=== PATIENT | female | born 1935 | race Caucasian/White ===

== ENCOUNTER 2019-11-09 18:03 | Emergency (ER) | payer MEDICARE, SELFPAY ==
[2019-11-09 18:04] VITALS: BP 122/73; PULSE 90; RESP 18; TEMP 36.7; O2SAT 98; BMI 19.6
--- NOTE | 2019-11-09 18:35 | EKG12_ITS ---
Test Reason : DIZZY Blood Pressure : / mmHG Vent. Rate : 071 BPM Atrial Rate : 071 BPM P-R Int : 158 ms QRS Dur : 068 ms QT Int : 396 ms P-R-T Axes : 072 074 073 degrees QTc Int : 430 ms Sinus rhythm with Premature atrial complexes Otherwise normal ECG Confirmed by RAMÓN WILKS, BELA ([id number]), editor greeting card COREY WILLIAM ([id number]) on 11/17/2019 11:18:35 A M Referred By: ALBERTO Confirmed By:SLY MELGAR MD
--- NOTE | 2019-11-09 18:40 | ED.RN ---
no old ekgs in [facility]
--- NOTE | 2019-11-09 18:45 | RAD_ITS ---
STUDY: X-RAY CHEST REASON FOR EXAM: Female, 84 years old. fall last night, confused and dizzy today TECHNIQUE: Frontal and lateral views of the chest. COMPARISON: None. FINDINGS: Pulmonary hyperinflation without acute alveolar disease. There is no demonstrated pleural abnormality. Normal size heart. Normal mediastinum and hao. Normal visualized pulmonary arteries. Normal visualized aortic arch and descending thoracic aorta. There is a dextroscoliosis of the thoracic spine. Remote right rib trauma. There is no demonstrated abnormality of the visualized soft tissue structures of the upper abdomen. RAD/Chest PA and Lateral IMPRESSION: Pulmonary hyperinflation without acute alveolar disease. Electronically Signed: Gary Luis MD at 19:01 EDT Tel , Service support ,
[2019-11-09 19:24] LABS: Absolute Lymphocyte Count 2.58 X10^3/uL (0.83-4.51); Absolute Neutrophil Count 8.9 X10^3/uL (2.0-7.7); Basophil# 0.05 X10^3/uL; Basophil% 0.4 % (0-1); Eosinophil# 0.12 X10^3/uL; Hematocrit 46.4 % (37-47); Hemoglobin 14.5 g/dL (12.0-15.0); Lymphocyte # 2.58 X10^3/ul (4.0); Lymphocyte % 20.7 % (19-41); Mean Corp Hgb Conc 31.3 g/dL (32-36); Mean Corpuscular Hgb 28.4 pg (27.0-32.0); Mean Corpuscular Volume 90.8 fL (81-99); Mean Platelet Vol. 10.8 fl (6.2-12.0); Monocyte# 0.81 X10^3/uL; Monocyte% 6.5 % (0-10); NRBC Flagged by Analyzer 0 % (0-5); Neutrophil # 8.88 X10^3/uL (2.7-7.7); Platelet Count 230 K/mm3 (150-450); RBC Distribution Width CV 13.5 % (11.6-14.6); RBC Distribution Width SD 45.1 fl (35.1-43.9); Red Blood Count 5.11 M/mm3 (4.2-5.4); White Blood Count 12.5 K/mm3 (4.4-11.0)
[2019-11-09 19:26] VITALS: BP 134/67; PULSE 72; RESP 16; O2SAT 99
[2019-11-09] MEDS: 0.9% Normal Saline 1,000 ML 50 ML IV (19:28)
[2019-11-09 19:29] LABS: International Normalized Ratio 1.1
[2019-11-09 19:30] LABS: Partial Thromboplast Time 26.7 Seconds (24.1-36.2)
[2019-11-09 19:37] VITALS: O2SAT 99
[2019-11-09 19:38] LABS: Anion Gap 5 (5-15); BUN 27 mg/dL (7-18); BUN/Creat Ratio 18.8 RATIO (10-20); Calcium,Total 9.3 mg/dL (8.5-10.1); Chloride 109 mmol/L (98-107); Creatinine, Serum 1.44 mg/dL (0.55-1.02); EST Glomerular Filtration Rate 37 mL/min (>60); Est Glom Filt Rate - Afr Amer 45 mL/min (>60); Estimated Creatinine Clearance 25.01 ml/min; Glucose 95 mg/dL (74-106); Potassium 5.4 mmol/L (3.5-5.1); Sodium Level 137 mmol/L (136-145)
--- NOTE | 2019-11-09 19:51 | ED.DCSUM_ITS ---
History of Present Illness Chief Complaint: Dizziness Detail of Chief Complaint: Fall with head injury Informant: Patient Onset: Today Current Severity: Mild Maximum Severity: Mild Narrative: Patient presents after falling and striking her head. She states she got up in the middle the night early this morning and fell in the bathroom. She states she was wearing socks and when she stepped onto the linoleum floor her foot slid out from underneath her causing her to fall. She did strike the back of her head against the corner of the dryer. She did not lose consciousness. She was able to get up and get herself cleaned up before going back to bed. Patient reports some intermittent mild dizziness today and some intermittent confusion. She states she is had some intermittent confusion for quite some time. Her children wanted her to be checked to ensure she was okay. Patient denies headache or vision change. She had no nausea or vomiting. - Past Medical History (1) Hypothyroid Status: Chronic (2) Hypertension Status: Chronic (3) Depression Status: Chronic Past Medical History - Allergies and Home Meds Allergies/Adverse Reactions: Allergies ciprofloxacin [From Cipro] Allergy (Verified 11/09/19 18:07) Hives ciprofloxacin HCl [From Cipro] Allergy (Verified 11/09/19 18:07) Hives amoxicillin trihydrate [From Augmentin] Adverse Reaction (Verified 11/09/19 18:07) Abd cramps/diarrhea potassium clavulanate [From Augmentin] Adverse Reaction (Verified 11/09/19 18:07) Abd cramps/diarrhea Primary Care Physician: Francisco Javier Elizabeth III, MD [Primary Care Provider] - Prior records reviewed: Yes Surgical History: noncontributory Smoking Status: Never smoker Review of Systems General: Denies: Chills, Fever Eyes: Denies: Visual changes - bilaterally ENT: Denies: Bilateral ear pain Cardiovascular: Denies: Chest pain Respiratory: Denies: Dyspnea, Cough Gastrointestinal: Denies: Abdominal pain, Nausea, Vomiting Genitourinary: Denies: Dysuria, Frequency Musculoskeletal: Denies: Extremity Pain Skin: Denies: Rash Neurological: Denies: Headache Hematologic: Denies: Easy bruising, Easy bleeding Allergy: Denies: Uticaria Physical Exam Vital Signs/Narrative: Vital Signs Temp Pulse Resp BP Pulse Ox 11/09/19 19:37 99 11/09/19 19:26 72 16 134/67 H 99 11/09/19 18:04 98.1 F 90 18 122/73 H 98 Inital Vital Signs reviewed: Yes General: Well nourished, Well developed Head: Normocephalic, - - Scabbed linear laceration to the posterior right parietal scalp. No underlying hematoma. Laceration is approximate 1.5 cm in length. Eyes: EOMI ENT: Moist mucous membranes Neck: Supple Cardiovascular: Regular rate, Regular rhythm Respiratory: No distress, CTA bilaterally Abdomen: Soft, Nontender Extremities: Nontender Skin: - - Scalp laceration as above Neurological: Alert, Oriented x3, Normal Strength, Normal Sensation Psychological: Normal affect Diagnostic/Tx/Re-eval Impressions Chest X-Ray 11/09/19 18:45 IMPRESSION: Pulmonary hyperinflation without acute alveolar disease. Electronically Signed: Gary Luis MD at 19:01 EDT Tel , Service support , Brain CT 11/09/19 20:12 IMPRESSION: No fracture or intracranial hemorrhage. Electronically Signed: Gary Luis MD at 20:42 EDT Tel , Service support , 11/09/19 18:45 Chest PA and Lateral [RAD] Stat 11/09/19 20:12 CT Head [Brain/Head without Contrast] [CT] Stat Laboratory Results 11/09/19 11/09/19 11/09/19 19:13 19:13 19:13 WBC 12.5 H RBC 5.11 Hgb 14.5 Hct 46.4 MCV 90.8 MCH 28.4 MCHC 31.3 L RDW Std Deviation 45.1 H RDW Coeff of Sol 13.5 Plt Count 230 MPV 10.8 Immature Gran % (Auto) 0.400 Neut % (Auto) 71.0 H Lymph % (Auto) 20.7 [place] % (Auto) 6.5 Eos % (Auto) 1.0 Baso % (Auto) 0.4 Absolute Neuts (auto) 8.9 H Absolute Lymphs (auto) 2.58 Nucleated RBC % 0 PT 14.0 INR 1.1 APTT 26.7 Sodium 137 Potassium 5.4 H Chloride 109 H Carbon Dioxide 23.0 Anion Gap 5 BUN 27 H Creatinine 1.44 H Estim Creat Clear Calc 25.01 Est GFR (MDRD) Af Amer 45 L Est GFR (MDRD) Non-Af 37 L BUN/Creatinine Ratio 18.8 Glucose 95 Calcium 9.3 - EKG Initial EKG Interpretation: Sinus Rhythm - Sinus at 71 with occasional PACs. - Medical Decision Making On repeat evaluation patient is resting comfortably. She was given IV fluids while in the emergency room. ED Disposition - Plan for ED Patient: Disposition: Home or Assisted Living Diagnosis: Fall, Scalp laceration Instructions: ED Head Injury Adult, ED Laceration Old Not Sutr Referrals: Francisco Javier Elizabeth III, MD [Primary Care Provider] - 1 Week if not improving
--- NOTE | 2019-11-09 20:12 | CT_ITS ---
STUDY: CT BRAIN WITHOUT CONTRAST REASON FOR EXAM: Female, 84 years old. FALL. CONFUSION WITH DIZZINESS.HTN RADIATION DOSAGE (If Supplied By Facility): CTDIvol = ( 60.81 ) mGy, DLP = ( 1021.47 ) mGycm TECHNIQUE: Transaxial CT imaging of the brain was performed without administration of intravenous contrast material. Individualized dose optimization techniques were used for this CT. COMPARISON: No relevant priors. FINDINGS: Normal soft tissue structures. Normal calvarium. Bilateral lens replacements. Normal size ventricles and extra-axial spaces for the patient''s age. There are areas of decreased attenuation within the white matter tracts of the supratentorial brain, consistent with microvascular disease changes. Age-related changes of the basal ganglia. Normal brainstem. Normal cerebellum. There is no intracranial hemorrhage. There are no findings of an acute ischemic infarction. Normal visualized paranasal sinuses. CT/Brain/Head without Contrast IMPRESSION: No fracture or intracranial hemorrhage. Electronically Signed: Gary Luis MD at 20:42 EDT Tel , Service support ,
[2019-11-09 20:21] VITALS: BP 137/71
[2019-11-09 21:08] VITALS: BP 142/55; PULSE 65; RESP 16; O2SAT 100
[2019-11-09 22:05] VITALS: BP 135/67; PULSE 68; RESP 16; O2SAT 98
== END 2019-11-09 22:09 | disposition home or self-care (01) ==
PROVIDERS: Emergency Provider Emergency Medicine; PCP Family Medicine
DX: S01.01XA Laceration without foreign body of scalp, initial encounter (principal); I10 Essential (primary) hypertension; W18.30XA Fall on same level, unspecified, initial encounter; Y93.01 Activity, walking, marching and hiking; Y92.002 Bathroom of unspecified non-institutional (private) residence as the place of occurrence of the external cause; Y99.8 Other external cause status
CPT/HCPCS: 70450; 71046; 80048; 85025; 85610; 85730; 93005; 99283; J7030; A4216

== ENCOUNTER 2019-12-08 13:36 | Inpatient (IN) | payer MEDICARE, OTHER, SELFPAY ==
[2019-12-08] VITALS (8 sets, daily range): BP systolic 101–142; BP diastolic 45–62; PULSE 60–81; RESP 16–18; TEMP 36.1–36.6; O2SAT 94–100; BMI 17.1; BMI 19.0
--- NOTE | 2019-12-08 14:00 | CT_ITS ---
STUDY: CT ABDOMEN AND PELVIS WITH CONTRAST REASON FOR EXAM: Female, 84 years old. AB PAIN AND DIARRHEA X 6 MONTHS RADIATION DOSAGE (If Supplied By Facility): CTDIvol = ( 11.20 ) mGy, DLP = ( 265.26 ) mGycm TECHNIQUE: Transaxial images were obtained from the dome of the diaphragm to the symphysis pubis without oral contrast. Oral and amp; IV Gastrografin and amp; 100mL Isovue-300 was administered. Sagittal and coronal images were reconstructed. Individualized dose optimization techniques were used for this CT. COMPARISON: 2010 FINDINGS: The lungs are hyperexpanded with chronic interstitial changes. The visualized portions of the heart are within normal limits. No discrete focal lesion noted within the liver. There is extensive intrahepatic biliary dilatation despite the presence of the gallbladder. Multiple gallstones are noted no wall thickening or pericholecystic fluid. There is no significant extrahepatic biliary dilatation. Common bile duct and head of the pancreas measures 6 mm on coronal recon image 44 and is within normal range. Findings could be due to nonradiopaque stone, stricture, ampulla of VATER mass or simply a product of aging. Normal spleen. Normal pancreas specifically, no mass lesion is identified within the head of the pancreas.. Normal bilateral adrenal glands. Normal right kidney. Normal left kidney. Normal visualized stomach. Normal small intestine. The ascending and transverse colon are fluid distended suggesting enteritis. There is retained stool and sigmoid diverticulosis without CT evidence of acute diverticulitis. The appendix is visualized and appears normal. Appendix best seen on coronal recon images 32 through 35. 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 There is no suspicious periaortic fluid. Normal inferior vena cava. Normal retroperitoneum. Normal urinary bladder. There is been a previous hysterectomy, there is a pessary below the bladder. There is a fluid-filled periumbilical hernia.. There are diffuse degenerative changes of the visualized lumbar spine, and pelvis. CT/Abdomen/Pelvis WITH Contrast IMPRESSION: Significant intrahepatic biliary dilatation of uncertain etiology. No discrete lesion noted within the liver. Multiple gallstones are noted within the gallbladder there is no wall thickening or pericholecystic fluid and no extrahepatic biliary dilatation is noted. Findings could be due to a stricture, or nonradiopaque stone. 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
--- NOTE | 2019-12-08 14:09 | ED.DCSUM_ITS ---
- ER Visit Summary Date of Service: 12/08/19 Chief Complaint: Diarrhea History of Present Illness: The patient is a 84 F presenting with diarrhea. This started 6 months ago. She has had diarrhea daily over that time period. She states she is having 2 bowel movements per day. She states it is watery stool. She has had stool samples checked by her primary care physician. She has had her well water checked. She denies abdominal pain, nausea, vomiting. Denies fever. Denies chest pain or shortness of breath. She states she has felt lightheaded but has not passed out. Family is concerned about possible dehydration. She denies other complaints. Physical Examination: Vitals are stable. Patient is afebrile. Alert no acute distress. HEENT exam is unremarkable. Neck is supple. Lungs are clear and equal bilaterally. Heart is regular rate and rhythm. Abdomen is soft nontender nondistended. No rebound or guarding Extremities are unremarkable. Skin is warm and dry. No focal neurologic deficit. Remainder of exam is unremarkable. Emergency Department Course and Treatment: CBC is normal except white count of 11.9. Chemistries normal except for potassium 3.4, creatinine 1.11. Urinalysis shows over 100 white blood cells, 10-[address] abdomen pelvis shows significant intrahepatic biliary dilatation of uncertain etiology. No discrete lesion noted within the liver. Multiple gallstones are noted within the gallbladder there is no wall thickening or pericholecystic fluid and no extrahepatic biliary dilatation is noted. Findings could be due to a stricture, or nonradiopaque stone. There is no demonstrated stone in the extrahepatic common bile duct Fluid distended ascending and transverse colon suggest enteritis. Sigmoid diverticulosis. 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 Degenerative bony changes. Pessary supports the bladder. Degenerative bony changes. Urine culture was sent. She was given Rocephin IV. Discussed with Dr. Nicholas who recommends MRCP. Discussed with the hospitalist for observation. Disposition: Observation Impression: Diarrhea, intrahepatic duct dilatation, UTI This note was generated with incredib[employer]ue dictation software. It may contain incorrect words, spelling, and punctuation that were not noted in review of the chart prior to signing ED Disposition - Plan for ED Patient: Referrals: Francisco Javier Elizabeth III, MD [Primary Care Provider] -
[2019-12-08 14:38] LABS: Mucous, Urine 0 SEEN /hpf (<or=2+)
[2019-12-08] MEDS: 0.9% Normal Saline 1,000 ML 1000 ML IV (14:38)
[2019-12-08 14:45] LABS: Absolute Lymphocyte Count 2.16 X10^3/uL (0.83-4.51); Absolute Neutrophil Count 8.8 X10^3/uL (2.0-7.7); Basophil# 0.04 X10^3/uL; Basophil% 0.3 % (0-1); Eosinophil# 0.11 X10^3/uL; Eosinophils% 0.9 % (0-5); Hematocrit 40.8 % (37-47); Hemoglobin 12.8 g/dL (12.0-15.0); Lymphocyte # 2.16 X10^3/ul (4.0); Lymphocyte % 18.1 % (19-41); Mean Corp Hgb Conc 31.4 g/dL (32-36); Mean Corpuscular Hgb 27.8 pg (27.0-32.0); Mean Corpuscular Volume 88.5 fL (81-99); Mean Platelet Vol. 10.2 fl (6.2-12.0); Monocyte# 0.77 X10^3/uL; Monocyte% 6.5 % (0-10); NRBC Flagged by Analyzer 0 % (0-5); Neutrophil # 8.82 X10^3/uL (2.7-7.7); Neutrophil % 73.9 % (47-70); Platelet Count 206 K/mm3 (150-450); RBC Distribution Width CV 14.3 % (11.6-14.6); RBC Distribution Width SD 45.9 fl (35.1-43.9); Red Blood Count 4.61 M/mm3 (4.2-5.4); White Blood Count 11.9 K/mm3 (4.4-11.0)
[2019-12-08 14:45] LABS: Color, Urine Yellow (Yellow); Glucose, Dipstick Normal (Normal); Ketone-Dipstick 5 mg/dl (Negative); Leukocyte Esterase-Dipstick 500 /ul (Negative); Nitrite-Dipstick Negative (Negative); Occult Blood-Urine 25 /ul (Negative); Protein-Dipstick 30 mg/dl (Negative); Specific Gravity, Urine 1.015 (1.002-1.030); Urine Bilirubin Dipstick Negative (Negative); Urine Clarity Cloudy (Clear); Urine Urobilinogen Normal (Normal)
[2019-12-08 15:03] LABS: ALB/GLOB Ratio 0.9 RATIO (0.9-2.4); AST(SGOT) 28 U/L (15-37); Alanine Aminotransfer ALT/SGPT 20 U/L (13-56); Albumin, Serum 3.3 g/dL (3.2-5.0); Alkaline Phosphatase 74 U/L (45-117); Anion Gap 7 (5-15); BUN 17 mg/dL (7-18); BUN/Creat Ratio 15.3 RATIO (10-20); Calcium,Total 8.5 mg/dL (8.5-10.1); Chloride 111 mmol/L (98-107); Creatinine, Serum 1.11 mg/dL (0.55-1.02); EST Glomerular Filtration Rate 50 mL/min (>60); Est Glom Filt Rate - Afr Amer 60 mL/min (>60); Estimated Creatinine Clearance 29.15 ml/min; Globulin 3.8 g/dL (2.2-4.2); Glucose 108 mg/dL (74-106); Potassium 3.4 mmol/L (3.5-5.1); Protein, Total 7.1 g/dL (6.4-8.2); Sodium Level 144 mmol/L (136-145)
[2019-12-08 15:10] LABS: Amorphous Sediment 1+; Bacteria 1+ /hpf (None Seen); Red Blood Cells-Urine 10-25 SEEN /hpf (0-5); Squamous Epithelial Cells - UA 0-5 SEEN /hpf (5-10); White Blood Cells >100 SEEN /hpf (0-5)
[2019-12-08 17:58] LABS: Lipase 867 U/L (73-393)
--- NOTE | 2019-12-08 18:02 | NURSING ---
321 DONYA DIARRHEA, INTRAHEPATIC BILIARY DILATION OBS
[2019-12-08] MEDS: Ceftriaxone 1 GM/50 ML BAG IV (18:24)
--- NOTE | 2019-12-08 18:38 | HP.PCM_ITS ---
Problem List (1) Diarrhea Status: Acute (2) Enteritis Status: Acute (3) Hypothyroid Status: Chronic (4) Hypertension Status: Chronic (5) Depression Status: Chronic History of Present Illness Date of Admission: 12/08/19 The patient is a 84 year old F with a PMH of hypothyroidism, HTN, and Depression who presented to the ED on 12/08/2019 with diarrhea. This started about 6 mos ago. The pt reports that she has 2 bouts of liquid stool daily during the day. No nocturnal diarrhea noted. She states that there is no formation to her stool and that the color depends on what she eats. She has initiated a workup with Dr. Adia Elizabeth that has consisted of stool samples and had her well water checked. So far they have found nothing. She denies any abdominal pain, blood in her stool or melena. She states that she has not lost much weight but her daughter estimates that she has lost at least 10 lbs per month. Per her daughter he PO intake is poor but yet again the pt denies pain in her abdomen with eating or otherwise. Her VS are stable in the ED. She has a slight leukocytosis at 11.9 her K is low at 3.4 and she appears mildly dehydrated with an elevated Cl and BUN and SG of her urine is 1.015. Her Lipase is 876. Her UA has mild occult blood, leuk esterase + and >100 WBC but the pt has no dysuria or frequency. A urine cx was sent in the ED and she was given 1 dose of CTX for this. A CT of the abdomen was done at the request of the family and showed significant intrahepatic duct dilation with no discrete liver lesion and multiple gallstones but a normal GB otherwise. SHe has fluid distention of her ascending and transverse colon suggestive of enteritis and sigmoid diverticulitis. She was also found to have a calcified AA with aneurysmal dilation of the thoraco abdominal junction with a maximal dimension of 5x4.6 cm. The ED discussed the case with Dr. Nicholas and he recommended an MRCP be done in the am. Past Medical History Past Medical History (Chronic Problems): Chronic Problems Hypothyroid (Chronic) Hypertension (Chronic) Depression (Chronic) Allergies ciprofloxacin [From Cipro] Allergy (Verified 12/08/19 13:39) Hives ciprofloxacin HCl [From Cipro] Allergy (Verified 12/08/19 13:39) Hives amoxicillin trihydrate [From Augmentin] Adverse Reaction (Verified 12/08/19 13:39) Abd cramps/diarrhea potassium clavulanate [From Augmentin] Adverse Reaction (Verified 12/08/19 13:39) Abd cramps/diarrhea Home Medications: Ambulatory Orders Medication Instructions Recorded Lisinopril [Zestril] 10 mg PO DAILY 01/08/13 Levothyroxine [Synthroid] 75 mcg PO DAILY 12/08/19 Sertraline HCl [Zoloft] 50 mg PO DAILY 12/08/19 Surgical History: noncontributory Psychiatric History: No pertinent psych hx 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 Denies: Anorexia, Chills, Fever, Night Sweats, Malaise, Weakness, Fatigue Eyes: Denies: Blurred vision, Cataracts, Conjunctivae Inflammation, Double vision, Drainage, Eyelid Inflammation, Pain, Vision Change HEENT: Denies: Difficulty Hearing, Difficulty Swallowing, Ear Pain, Eye Pain, Head Aches, Nasal bleeding, Nasal Congestion, Post Nasal Drip, Sinus Congestion, Sinus Drainage, Sore Throat, Visual Changes Cardiovascular: Denies: Chest Pain, Claudication, Chest Pressure, Chest Tightness, Edema, Heaviness, Light Headedness, Orthopnea, Palpitations, Paroxysmal Noc. Dyspnea, Syncope Respiratory: Denies: Cough, Hemoptysis, Pleuritic Pain, Shortness of Breath, Shortness of breath at rest, Shortness of breath upon exertion, Sputum product ion, Wheezing Gastrointestinal: Reports: Diarrhea. Denies: Abdominal Pain, Constipation, Dyspepsia, Hematemesis, Hematochezia, Nausea, Melena, Vomiting Genitourinary: Reports: Incontinence. Denies: Dysuria, Frequency, Hematuria, Hesitancy, Nocturia, Retention, Urgency Musculoskeletal: Denies: Back Pain, Joint Pain, Joint stiffness, Joint swelling, Joint Tenderness, Neck Pain Skin: Denies: Dryness, Jaundice Neurological: Denies: Balance problems, Blurred vision, Double vision, Change in Speech, Slurred speech, Confusion, Difficulty swallowing, Focal weakness, Headaches, Incoordination, Numbness, Tingling, Tremor, Seizures Psychiatric: Reports: Anxiety. Denies: Depression Endocrine: Denies: Change in Body Habitus, Heat/ Cold Intolerance, Polydipsia, Polyuria Hematologic/ Lymphatic: Denies: Adenopathy, Anemia, Petechiae, Purpura VTE Information - Inpt Only VTE Present on Admission: No VTE Mechan Device Prophylaxis: None VTE Pharm Prophylaxis ordered?: Yes Patient Problems: Active and Suspected Problems Diarrhea (Acute) Enteritis (Acute) - Physical Exam Vitals/I&O's: Vital Signs Temp Pulse Resp BP Pulse Ox 97 F L 61 18 127/45 H 99 12/08/19 18:19 12/08/19 18:19 12/08/19 18:19 12/08/19 18:19 12/08/19 18:19 Oxygen Delivery Method Room Air Weight: 48.081 kg Body Mass Index (BMI) 17.1 Intake and Output for Last 24 Hours 12/06/19 12/07/19 12/08/19 23:59 23:59 23:59 Intake Total 1000 / 1000 Balance 1000 / 1000 General: Alert, Oriented x3, Cooperative, No apparent distress, Well developed, Well nourished, - - Frail WF lying in bed, appears a bit anxious, daughter at bedside HEENT: Atraumatic, PERRLA, EOMI, Normocephalic, EAC Clear Oral: Moist Mucosa, No Gingival or Mucosal Lesions/ Ulcerations, - - upper dentures in place Neck: Supple, No JVD, Negative Carotid Bruits, Negative Hepatojugular Reflux, No Nodes, Trachea Midline, Thyroid Normal Size and Texture Lungs: Clear to auscultation, Normal air movement, No rhonchi, No wheeze, No rales Cardiovascular: Regular rate, Regular Rhythm, Normal S1, Normal S2, No murmurs, No Ectopic Activity, No rub noted, No Gallop Abdomen: Bowel Sounds Present, Soft, Non Tender, Non-Distended, No Hepato- splenomegaly, No hernias noted Extremities: No clubbing, No cyanosis, No edema, Capillary Refill Less than 3 Seconds, No Calf Tenderness, Peripheral Pulses Normal Skin: No rashes, No breakdown Musculoskeletal: No Tenderness to Palpation of Joints or Extremities, Arthritic Changes, Cachexia, Muscle Wasting Lymphatic: No Cervical, Supraclavicular, or Inguinal Adenopathy Neurological: Cranial nerves II-XII grossly intact, Deep Tendon Reflexes 2+/4 and Symmetrical, Neuro grossly intact, Muscle tone normal, Sensory exam intact to light touch and pain, Coordination normal, - - generalized weakness proximal >>distal Psych/Mental Status: Normal Affect, Anxious, Alert and oriented to time, place, person, mood and affect Laboratory Results 12/08/19 14:20: WBC 11.9 H, RBC 4.61, Hgb 12.8, Hct 40.8, MCV 88.5, MCH 27.8, MCHC 31.4 L, RDW Std Deviation 45.9 H, RDW Coeff of Sol 14.3, Plt Count 206, MPV 10.2, Immature Gran % (Auto) 0.300, Neut % (Auto) 73.9 H, Lymph % (Auto) 18.1 L , [place] % (Auto) 6.5, Eos % (Auto) 0.9, Baso % (Auto) 0.3, Absolute Neuts (auto) 8.8 H, Absolute Lymphs (auto) 2.16, Nucleated RBC % 0 12/08/19 14:20: Sodium 144, Potassium 3.4 L, Chloride 111 H, Carbon Dioxide 26.0, Anion Gap 7, BUN 17, Creatinine 1.11 H, Estim Creat Clear Calc 29.15, Est GFR (MDRD) Af Amer 60, Est GFR (MDRD) Non-Af 50 L, BUN/Creatinine Ratio 15.3, Glucose 108 H, Calcium 8.5, Total Bilirubin 0.40, AST 28, ALT 20, Alkaline Phosphatase 74, Total Protein 7.1, Albumin 3.3, Globulin 3.8, Albumin/Globulin Ratio 0.9 12/08/19 14:20: Lipase 867 H 12/08/19 14:25: Urine Color Yellow, Urine Clarity Cloudy, Urine pH 6.0, Ur Specific [place] 1.015, Urine Protein 30 H, Urine Glucose (UA) Normal, Urine Ketones 5 H, Urine Occult Blood 25 H, Urine Nitrite Negative, Urine Bilirubin Negative, Urine Urobilinogen Normal, Ur Leukocyte Esterase 500 H, Urine RBC 10- 25 SEEN, Urine WBC >100 SEEN, Ur Squamous Epith Cells 0-5 SEEN, Amorphous Sediment 1+, Urine Bacteria 1+, Urine Mucus 0 SEEN Current Medications Influenza Virus Vaccine Quadrival (Flucelvax /Fluzone ) 0.5 ml IM .ONCE ONE Stop: 12/09/19 10:01 Sodium Chloride () 10 - 40 ml IV UD PRN PRN Reason: SALINE FLUSH Assessment/Plan All Active Problems Diarrhea (Acute) Enteritis (Acute) Dilated Intrahepatic Duct -MRCP in am with ativan x 0.5 mg 30 min prior for anxiety -Consult to Dr. Nicholas -repeat LFT in am Diarrhea -check stool studies -check lactoferrin and calprotectin -enteritis on CT--> will treat with zosyn for now -suspect need c-scope in future -check TSH Bacteruria -pt asymptomatic -cx sent -will be on zosyn for above Severe Malnutrition -dietitian consult -supplements ordered -liberal diet AAA >5.5 cm and appears stable on CT -would recommend BP control -f/u with vascular as an outpt Hypokalemia -40 of po K -recheck with Mag in am CKD stage 3 -sCR appears to be close to baseline -will hydrate some with diarrhea Hypothyroidism -continue Synthroid -TSH in am HTN -continue Lisinopril and trend Depression -continue Zoloft DVT prophylaxis -Lovenox daily Code Status -Full Inpatient E&M: 70126 Init Hosp L3
[2019-12-08] MEDS: 0.9% Normal Saline 1,000 ML 50 ML IV (20:33)
[2019-12-09 03:04] VITALS: BP 127/53; PULSE 67; RESP 18; TEMP 37; O2SAT 97
[2019-12-09 06:33] LABS: Absolute Lymphocyte Count 1.53 X10^3/uL (0.83-4.51); Absolute Neutrophil Count 6.4 X10^3/uL (2.0-7.7); Basophil# 0.02 X10^3/uL; Basophil% 0.2 % (0-1); Eosinophil# 0.14 X10^3/uL; Eosinophils% 1.6 % (0-5); Hematocrit 34.8 % (37-47); Hemoglobin 11.3 g/dL (12.0-15.0); Lymphocyte # 1.53 X10^3/ul (4.0); Lymphocyte % 17.7 % (19-41); Mean Corp Hgb Conc 32.5 g/dL (32-36); Mean Corpuscular Hgb 28.7 pg (27.0-32.0); Mean Corpuscular Volume 88.3 fL (81-99); Mean Platelet Vol. 10.3 fl (6.2-12.0); Monocyte# 0.51 X10^3/uL; Monocyte% 5.9 % (0-10); NRBC Flagged by Analyzer 0 % (0-5); Neutrophil # 6.41 X10^3/uL (2.7-7.7); Neutrophil % 74.3 % (47-70); Platelet Count 153 K/mm3 (150-450); RBC Distribution Width CV 14.2 % (11.6-14.6); RBC Distribution Width SD 45.6 fl (35.1-43.9); Red Blood Count 3.94 M/mm3 (4.2-5.4); White Blood Count 8.6 K/mm3 (4.4-11.0)
[2019-12-09 06:59] LABS: ALB/GLOB Ratio 0.9 RATIO (0.9-2.4); AST(SGOT) 64 U/L (15-37); Alanine Aminotransfer ALT/SGPT 75 U/L (13-56); Albumin, Serum 2.6 g/dL (3.2-5.0); Alkaline Phosphatase 72 U/L (45-117); Anion Gap 8 (5-15); BUN 13 mg/dL (7-18); BUN/Creat Ratio 13.4 RATIO (10-20); Calcium,Total 7.6 mg/dL (8.5-10.1); Chloride 114 mmol/L (98-107); Creatinine, Serum 0.97 mg/dL (0.55-1.02); EST Glomerular Filtration Rate 58 mL/min (>60); Est Glom Filt Rate - Afr Amer 70 mL/min (>60); Estimated Creatinine Clearance 35.31 ml/min; Globulin 2.8 g/dL (2.2-4.2); Glucose 92 mg/dL (74-106); Magnesium 1.8 mg/dL (1.6-2.6); Phosphorus 2.8 mg/dL (2.5-4.9); Potassium 2.8 mmol/L (3.5-5.1); Protein, Total 5.4 g/dL (6.4-8.2); Sodium Level 146 mmol/L (136-145); Thyroid Stim Hormone (TSH) 3.21 uIU/mL (0.358-3.74)
--- NOTE | 2019-12-09 08:11 | CON.PCM_ITS ---
Problem List (1) Intrahepatic bile duct dilation Status: Acute (2) Diarrhea Status: Acute Qualifiers: Diarrhea type: unspecified type Qualified Code(s): R19.7 - Diarrhea, unspecified Reason for Consult Date of Consultation: 12/09/19 History of Present Illness: The patient is a 84 year old F who presents with a month-long history of diarrhea. Patient is not having any abdominal pain. She reports no nausea or vomiting. She says that she is not having any blood in her stool. She said that her doctor has ordered multiple stool studies that have not shown any reason for her diarrhea. Past Medical History Past Medical History (Chronic Problems): Chronic Problems Hypothyroid (Chronic) Hypertension (Chronic) Depression (Chronic) Allergies ciprofloxacin [From Cipro] Allergy (Verified 12/08/19 13:39) Hives ciprofloxacin HCl [From Cipro] Allergy (Verified 12/08/19 13:39) Hives amoxicillin trihydrate [From Augmentin] Adverse Reaction (Verified 12/08/19 13:39) Abd cramps/diarrhea potassium clavulanate [From Augmentin] Adverse Reaction (Verified 12/08/19 13:39) Abd cramps/diarrhea Home Medications: Ambulatory Orders Medication Instructions Recorded Lisinopril [Zestril] 10 mg PO DAILY 01/08/13 Levothyroxine [Synthroid] 75 mcg PO DAILY 12/08/19 Sertraline HCl [Zoloft] 50 mg PO DAILY 12/08/19 Surgical History: noncontributory Psychiatric History: No pertinent psych hx 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 Denies: Abdominal Pain, Constipation, Dyspepsia, Hematemesis, Hematochezia, Nausea, Vomiting Genitourinary: Denies: Dysuria Skin: Denies: Jaundice Neurological: Denies: Balance problems Hematologic/ Lymphatic: Denies: Anemia Patient Problems: Active and Suspected Problems Diarrhea (Acute) Enteritis (Acute) Intrahepatic bile duct dilation (Acute) - Physical Exam Vitals/I&O's: Vital Signs Temp Pulse Resp BP Pulse Ox 98.6 F 67 18 127/53 H 97 12/09/19 03:04 12/09/19 03:04 12/09/19 03:04 12/09/19 03:04 12/09/19 03:04 Oxygen Delivery Method Room Air Weight: 112 lb 3.445 oz Body Mass Index (BMI) 19.0 Intake and Output for Last 24 Hours 12/07/19 12/08/19 12/09/19 23:59 23:59 23:59 Intake Total 1050 / 1320 320 / 320 Balance 1050 / 1320 320 / 320 General: Alert, Oriented x3 Neck: No JVD Lungs: Normal air movement Cardiovascular: Regular rate, Regular Rhythm Abdomen: Soft, Non Tender, Non-Distended Extremities: No clubbing Skin: No rashes Musculoskeletal: No Tenderness to Palpation of Joints or Extremities Neurological: Cranial nerves II-XII grossly intact Psych/Mental Status: Normal Affect Microbiology Past 72 Hours 12/08/19 20:35 Stool Stool Lactoferrin - Final Laboratory Results 12/08/19 14:20: WBC 11.9 H, RBC 4.61, Hgb 12.8, Hct 40.8, MCV 88.5, MCH 27.8, MCHC 31.4 L, RDW Std Deviation 45.9 H, RDW Coeff of Sol 14.3, Plt Count 206, MPV 10.2, Immature Gran % (Auto) 0.300, Neut % (Auto) 73.9 H, Lymph % (Auto) 18.1 L , [place] % (Auto) 6.5, Eos % (Auto) 0.9, Baso % (Auto) 0.3, Absolute Neuts (auto) 8.8 H, Absolute Lymphs (auto) 2.16, Nucleated RBC % 0 12/08/19 14:20: Sodium 144, Potassium 3.4 L, Chloride 111 H, Carbon Dioxide 26.0, Anion Gap 7, BUN 17, Creatinine 1.11 H, Estim Creat Clear Calc 29.15, Est GFR (MDRD) Af Amer 60, Est GFR (MDRD) Non-Af 50 L, BUN/Creatinine Ratio 15.3, Glucose 108 H, Calcium 8.5, Total Bilirubin 0.40, AST 28, ALT 20, Alkaline Phosphatase 74, Total Protein 7.1, Albumin 3.3, Globulin 3.8, Albumin/Globulin Ratio 0.9 12/08/19 14:20: Lipase 867 H 12/08/19 14:25: Urine Color Yellow, Urine Clarity Cloudy, Urine pH 6.0, Ur Specific [place] 1.015, Urine Protein 30 H, Urine Glucose (UA) Normal, Urine Ketones 5 H, Urine Occult Blood 25 H, Urine Nitrite Negative, Urine Bilirubin Negative, Urine Urobilinogen Normal, Ur Leukocyte Esterase 500 H, Urine RBC 10- 25 SEEN, Urine WBC >100 SEEN, Ur Squamous Epith Cells 0-5 SEEN, Amorphous Sediment 1+, Urine Bacteria 1+, Urine Mucus 0 SEEN 12/08/19 20:35: Stool Calprotectin Pending 12/08/19 20:35: Stl Giardia Antigen Pending 12/09/19 06:18: WBC 8.6, RBC 3.94 L, Hgb 11.3 L, Hct 34.8 L, MCV 88.3, MCH 28.7, MCHC 32.5, RDW Std Deviation 45.6 H, RDW Coeff of Sol 14.2, Plt Count 153, MPV 10.3, Immature Gran % (Auto) 0.300, Neut % (Auto) 74.3 H, Lymph % (Auto) 17.7 L, Baxter % (Auto) 5.9, Eos % (Auto) 1.6, Baso % (Auto) 0.2, Absolute Neuts (auto) 6.4, Absolute Lymphs (auto) 1.53, Nucleated RBC % 0 12/09/19 06:18: Sodium 146 H, Potassium 2.8 L, Chloride 114 H, Carbon Dioxide 24.0, Anion Gap 8, BUN 13, Creatinine 0.97, Estim Creat Clear Calc 35.31, Est GFR (MDRD) Af Amer 70, Est GFR (MDRD) Non-Af 58 L, BUN/Creatinine Ratio 13.4, Glucose 92, Calcium 7.6 L, Phosphorus 2.8, Magnesium 1.8, Total Bilirubin 0.30, AST 64 H, ALT 75 H, Alkaline Phosphatase 72, Total Protein 5.4 L, Albumin 2.6 L, Globulin 2.8, Albumin/Globulin Ratio 0.9, TSH 3.21 Clinical Impression(s) from Imaging Studies Abdomen/Pelvis CT 12/08/19 14:00 IMPRESSION: Significant intrahepatic biliary dilatation of uncertain etiology. No discrete lesion noted within the liver. Multiple gallstones are noted within the gallbladder there is no wall thickening or pericholecystic fluid and no extrahepatic biliary dilatation is noted. Findings could be due to a stricture, or nonradiopaque stone. There is no demonstrated stone in the extrahepatic common bile duct Fluid distended ascending and transverse colon suggest enteritis Sigmoid diverticulosis Peripherally calcified abdominal aorta with aneurysmal dilatation at the junction of the thoracic and abdominal aorta with maximum dimensions of 5 x 4.6 cm Degenerative bony changes Pessary supports the bladder Degenerative bony changes Electronically Signed: Kerwin Thakur MD at 16:56 EDT , Service support , Current Medications Acetaminophen (Tylenol) 650 mg PO Q6H PRN PRN PRN Reason: Pain Score 1-10/Temp > 100.7 F Enoxaparin Sodium (Lovenox) 30 mg SC DAILY [facility] Sodium Chloride () 1,000 mls @ 50 mls/hr IV .Q20H [facility] Last Admin: 12/08/19 20:33 Dose: 50 mls/hr Documented by: Piperacillin Sod/Tazobactam (Sod 3.375 gm/ Sodium Chloride) 50 mls @ 12.5 mls/hr IV Q8 [facility] Last Admin: 12/09/19 06:01 Dose: 12.5 mls/hr Documented by: Influenza Virus Vaccine Quadrival (Flucelvax /Fluzone ) 0.5 ml IM .ONCE ONE Stop: 12/09/19 10:01 Melatonin (Melatonin) 3 mg PO QHS PRN PRN PRN Reason: INSOMNIA Nutritional Formula (Lactose Free) (Ensure Enlive) 120 ml PO 4X/DAY [facility] Last Admin: 12/08/19 20:32 Dose: 120 ml Documented by: Ondansetron HCl (Zofran) 4 mg IV Q8H PRN PRN PRN Reason: NAUSEA/VOMITING Sodium Chloride () 10 - 40 ml IV UD PRN PRN Reason: SALINE FLUSH Assessment/Plan All Active Problems Diarrhea (Acute) Enteritis (Acute) Intrahepatic bile duct dilation (Acute) 84-year-old female with diarrhea and dilated intrahepatic biliary ducts 1. The patient is having diarrhea of unknown origin and this is been going on for about 6 months. She had a CT scan which showed fluid distended ascending and transverse colon suggestive of enteritis. The patient is not having any abdominal pain and all stool studies have been negative. Patient also has dilated hepatic and common bile duct. I have recommended an MRCP to evaluate further. Patient does have some small gallstones in the gallbladder. She is not having any elevation of the LFTs or pain in that area. It is possible that she has a decreased amount of bile flowing into the bowel causing malabsorption and diarrhea. She may benefit from ERCP with stent placement and sphincterotomy. Will review MRCP and decide. Jacobo Nicholas MD Pager: [facility] [address] [place] [address] [address] [place] [address] Office:
[2019-12-09] MEDS: Potassium Chloride 10mEq/100mL 10 MEQ/100 ML IV.SOLN. 100 MEQ IV BOLUS ×6 (09:34→23:45)
[2019-12-09] MEDS: Enoxaparin 30 MG/0.3 ML Syringe SC (09:53)
[2019-12-09 09:56] VITALS: BP 121/67; PULSE 65; RESP 18; TEMP 37.1; O2SAT 100
--- NOTE | 2019-12-09 10:00 | MRI_ITS ---
STUDY: MR MRCP WITHOUT CONTRAST REASON FOR EXAM: Female, 84 years old. intrahepatic duct dilation TECHNIQUE: Standard MRCP technique was utilized. COMPARISON: CT 12/08/2019 FINDINGS: Gall Bladder: Normal with no distention or demonstrated fixed intraluminal filling defect. Cystic duct: Normal with no demonstrated fixed filling defect. Intrahepatic ducts: Normal visualized intrahepatic ducts with no demonstrated fixed filling defect, dilation or stricture. Common hepatic duct: Normal with no demonstrated fixed filling defect, dilation or stricture. Common bile duct: Normal with no demonstrated fixed filling defect, dilation or stricture. Pancreatic duct: Normal with no demonstrated fixed filling defect, dilation or stricture. MRI/MRCP Abdomen without Contrast IMPRESSION: Normal MR Cholangiopancreatography (MRCP). Electronically Signed: Levy Monroe MD at 12:44 EDT Tel , Service support ,
[2019-12-09] MEDS: LORazepam 2 MG/ML Syringe 0.5 MG IV (11:09)
[2019-12-09] MEDS: 0.9% Saline Lock 10 ML Syringe IV (11:09)
--- NOTE | 2019-12-09 12:08 | CASEMGMT ---
RN CM Assessment Note Introduced role of CM to patient and her daughter. Patient recently returned from testing, so patient was able to assist with assessment. Patient lives by herself but is still very independent, and does not use ambulatory DME. Demographics verified. Daughter's name was not on sheet and she would like to be added. Called to registration to add her name and number to contacts. Presentation: diarrhea Diagnosis: enteritis, diverticulitis PCP: Dr. Francisco Javier Elizabeth III Specialists: Insurance: [facility] Preferred Pharmacy: Prescription Benefit: Patty Eldridge LNOK: BrotherRudolph Living Arrangements: Lives in two story home independently. No current care needs, but family is nearby if to assist with any needs. pt states she does not go upstairs, as she has a first floor set up. Her brother and granddaughter live in area and are able to assist. Tranportation: various family drives her DME: none HHC: none SNF: none Patient DC Goals: Home on discharge DC Plan: Home. Per patient and daughter, no concerns on discharge. CM available for discharge planning coordination. Contact CM for any concerns/needs that may arise. Cecilia TOBINN RN ACM
--- NOTE | 2019-12-09 12:15 | NURSING ---
pt returned from MRI, tolerated well. pt monitored by this RN during test.
--- NOTE | 2019-12-09 12:54 | PCM.NTREPORT ---
Nutrition Therapy Report - History Nutrition Services has been consulted to:: Manage nutrient details of diet order Current diet / nutrition support order:: NPO; Ensure Enlive 120mL 4x/day - Anthropometric Measurements Height:: 5 ft 4 in Weight:: 50.9 kg Body Mass Index (BMI):: 19.2 - Relevant Labs Relevant Labs:: WBC 11.9 K/mm3 (4.4-11.0) H 12/08/19 14:20 RBC 3.94 M/mm3 (4.2-5.4) L 12/09/19 06:18 Hgb 11.3 g/dL (12.0-15.0) L 12/09/19 06:18 Hct 34.8 % (37-47) L 12/09/19 06:18 MCHC 31.4 g/dL (32-36) L 12/08/19 14:20 RDW Std Deviation 45.6 fl (35.1-43.9) H 12/09/19 06:18 Neut % (Auto) 74.3 % (47-70) H 12/09/19 06:18 Lymph % (Auto) 17.7 % (19-41) L 12/09/19 06:18 Absolute Neuts (auto) 8.8 X10^3/uL (2.0-7.7) H 12/08/19 14:20 Sodium 146 mmol/L (136-145) H 12/09/19 06:18 Potassium 2.8 mmol/L (3.5-5.1) L 12/09/19 06:18 Chloride 114 mmol/L (98-107) H 12/09/19 06:18 Creatinine 1.11 mg/dL (0.55-1.02) H 12/08/19 14:20 Est GFR (MDRD) Non-Af 58 mL/min (>60) L 12/09/19 06:18 Glucose 108 mg/dL (74-106) H 12/08/19 14:20 Calcium 7.6 mg/dL (8.5-10.1) L 12/09/19 06:18 AST 64 U/L (15-37) H 12/09/19 06:18 ALT 75 U/L (13-56) H 12/09/19 06:18 Total Protein 5.4 g/dL (6.4-8.2) L 12/09/19 06:18 Albumin 2.6 g/dL (3.2-5.0) L 12/09/19 06:18 Lipase 867 U/L (73-393) H 12/08/19 14:20 - Assessment Food / Nutrition-Related History:: Daughter at bedside to provide additional information. Per daughter, pt eating very poorly [employer] w/ significant diarrhea for ~6 months. Wt 1 month ago was 116#, admission wt 110.7#-4.5% wt loss; wt 2 months ago was 126#- 12% wt loss, significant for malnutrition. Daughter states pt was drinking 2 bottles of Boost/day but it would go right through her. Was then told to drink Pedialyte by physician to stay hydrated. NFPA suggests severe muscle wasting/fat loss of clavicles, temporalis muscle, shoulders, and calf. - Nutrition Diagnosis Problem / Etiology / Signs & Symptoms (PES):: Severe malnutrition related to suspected malabsorption , inadequate protein-energy intake as evidenced by 15#/12% wt loss x 2 months, severe muscle wasting/fat loss of clavicles, temporalis muscle, shoulders, and calf. Evidence of Malnutrition Exists:: Yes Severe PCM:: Chronic Illness - Nutrition Intervention Nutrition Prescription:: [id number] calories/day, 50-60 g protein/day - Food / Nutrient Delivery Interventions Summary of nutrition intervention:: Discussed plan of care w/ pt; explained that if malabsorption issues fixed w/ surgery, ONS will likely be appropriate to assist w/ wt gain. Per Dr. Nicholas's documentation, it is possible that she has a decreased amount of bile flowing into the bowel causing malabsorption and diarrhea. Pt and daughter agreeable to continuing ONS when appropriate. Nutrition support ordered as / adjusted to:: advance diet as tolerated to regular, continue ensure enlive w/ medpass when appropriate for PO intake Nutrition education provided?: Yes - MNT Monitoring Further MNT monitoring and evaluation required?: Yes MNT Follow-up in:: 3-5 days
[2019-12-09 12:56] VITALS: BMI 19.2
--- NOTE | 2019-12-09 13:08 | PCM.PN.HOSP ---
Patient Problems: Active and Suspected Problems Diarrhea (Acute) Enteritis (Acute) Intrahepatic bile duct dilation (Acute) Reason for Visit: Follow-up on abnormal dilated intrahepatic ducts/chronic diarrhea Subjective: Patient was seen and examined. She has had only one bowel movement since admission. Denied any fever or chills. She had MRCP done today that was normal. Objective: Physical exam: General: Alert, Oriented x3, Cooperative, No apparent distress, Well developed, Well nourished, HEENT: Atraumatic, PERRLA, EOMI, Normocephalic, EAC Clear Oral: Moist Mucosa, No Gingival or Mucosal Lesions/ Ulcerations, - - upper dentures in place Neck: Supple, No JVD, Negative Carotid Bruits, Negative Hepatojugular Reflux, No Nodes, Trachea Midline, Thyroid Normal Size and Texture Lungs: Clear to auscultation, Normal air movement, No rhonchi, No wheeze, No rales Cardiovascular: Regular rate, Regular Rhythm, Normal S1, Normal S2, No murmurs, No Ectopic Activity, No rub noted, No Gallop Abdomen: Bowel Sounds Present, Soft, Non Tender, Non-Distended, No Hepato-splenomegaly, No hernias noted Extremities: No clubbing, No cyanosis, No edema, Capillary Refill Less than 3 Seconds, No Calf Tenderness, Peripheral Pulses Normal Skin: No rashes, No breakdown Musculoskeletal: No Tenderness to Palpation of Joints or Extremities, Arthritic Changes, Cachexia, Muscle Wasting Lymphatic: No Cervical, Supraclavicular, or Inguinal Adenopathy Neurological: Cranial nerves II-XII grossly intact, Deep Tendon Reflexes 2+/4 and Symmetrical, Neuro grossly intact, Muscle tone normal, Sensory exam intact to light touch and pain, Coordination normal, - - generalized weakness proximal >>distal Psych/Mental Status: Normal Affect, Anxious, Alert and oriented to time, place, person, mood and affect Vitals/I&O's: Vital Signs Temp Pulse Resp BP Pulse Ox 98.8 F 65 18 121/67 H 100 12/09/19 09:56 12/09/19 09:56 12/09/19 09:56 12/09/19 09:56 12/09/19 09:56 Oxygen Delivery Method Room Air Weight: 50.9 kg Body Mass Index (BMI) 19.2 Intake and Output for Last 24 Hours 12/07/19 12/08/1912/08/20 23:59 23:59 23:59 Intake Total 1050 / 1320 1277.60 / 1277.60 Balance 1050 / 1320 1277.60 / 1277.60 Microbiology Past 72 Hours 12/08/19 14:25 Urine, Clean Catch Urine Culture - Preliminary Presumptive E. coli 12/08/19 20:35 Stool Enteric Bacteriology - Final 12/08/19 20:35 Stool Stool Lactoferrin - Final Laboratory Results 12/08/19 14:20: WBC 11.9 H, RBC 4.61, Hgb 12.8, Hct 40.8, MCV 88.5, MCH 27.8, MCHC 31.4 L, RDW Std Deviation 45.9 H, RDW Coeff of Sol 14.3, Plt Count 206, MPV 10.2, Immature Gran % (Auto) 0.300, Neut % (Auto) 73.9 H, Lymph % (Auto) 18.1 L, [place] % (Auto) 6.5, Eos % (Auto) 0.9, Baso % (Auto) 0.3, Absolute Neuts (auto) 8.8 H, Absolute Lymphs (auto) 2.16, Nucleated RBC % 0 12/08/19 14:20: Sodium 144, Potassium 3.4 L, Chloride 111 H, Carbon Dioxide 26.0, Anion Gap 7, BUN 17, Creatinine 1.11 H, Estim Creat Clear Calc 29.15, Est GFR (MDRD) Af Amer 60, Est GFR (MDRD) Non-Af 50 L, BUN/Creatinine Ratio 15.3, Glucose 108 H, Calcium 8.5, Total Bilirubin 0.40, AST 28, ALT 20, Alkaline Phosphatase 74, Total Protein 7.1, Albumin 3.3, Globulin 3.8, Albumin/Globulin Ratio 0.9 12/08/19 14:20: Lipase 867 H 12/08/19 14:25: Urine Color Yellow, Urine Clarity Cloudy, Urine pH 6.0, Ur Specific [place] 1.015, Urine Protein 30 H, Urine Glucose (UA) Normal, Urine Ketones 5 H, Urine Occult Blood 25 H, Urine Nitrite Negative, Urine Bilirubin Negative, Urine Urobilinogen Normal, Ur Leukocyte Esterase 500 H, Urine RBC 10-25 SEEN, Urine WBC >100 SEEN, Ur Squamous Epith Cells 0-5 SEEN, Amorphous Sediment 1+, Urine Bacteria 1+, Urine Mucus 0 SEEN 12/08/19 20:35: Stool Calprotectin Pending 12/08/19 20:35: Stl Giardia Antigen Pending 12/09/19 06:18: WBC 8.6, RBC 3.94 L, Hgb 11.3 L, Hct 34.8 L, MCV 88.3, MCH 28.7, MCHC 32.5, RDW Std Deviation 45.6 H, RDW Coeff of Sol 14.2, Plt Count 153, MPV 10.3, Immature Gran % (Auto) 0.300, Neut % (Auto) 74.3 H, Lymph % (Auto) 17.7 L, [place] % (Auto) 5.9, Eos % (Auto) 1.6, Baso % (Auto) 0.2, Absolute Neuts (auto) 6.4, Absolute Lymphs (auto) 1.53, Nucleated RBC % 0 12/09/19 06:18: Sodium 146 H, Potassium 2.8 L, Chloride 114 H, Carbon Dioxide 24.0, Anion Gap 8, BUN 13, Creatinine 0.97, Estim Creat Clear Calc 35.31, Est GFR (MDRD) Af Amer 70, Est GFR (MDRD) Non-Af 58 L, BUN/Creatinine Ratio 13.4, Glucose 92, Calcium 7.6 L, Phosphorus 2.8, Magnesium 1.8, Total Bilirubin 0.30, AST 64 H, ALT 75 H, Alkaline Phosphatase 72, Total Protein 5.4 L, Albumin 2.6 L, Globulin 2.8, Albumin/Globulin Ratio 0.9, TSH 3.21 Current Medications Acetaminophen (Tylenol) 650 mg PO Q6H PRN PRN PRN Reason: Pain Score 1-10/Temp > 100.7 F Enoxaparin Sodium (Lovenox) 30 mg SC DAILY [facility] Last Admin: 12/09/19 09:53 Dose: 30 mg Documented by: Sodium Chloride () 1,000 mls @ 50 mls/hr IV .Q20H [facility] Last Infusion: 12/09/19 12:18 Dose: 50 mls/hr Documented by: Piperacillin Sod/Tazobactam (Sod 3.375 gm/ Sodium Chloride) 50 mls @ 12.5 mls/hr IV Q8 [facility] Last Infusion: 12/09/19 10:10 Dose: Infused Documented by: Melatonin (Melatonin) 3 mg PO QHS PRN PRN PRN Reason: INSOMNIA Nutritional Formula (Lactose Free) (Ensure Enlive) 120 ml PO 4X/DAY [facility] Last Admin: 12/09/19 09:53 Dose: Not Given Documented by: Ondansetron HCl (Zofran) 4 mg IV Q8H PRN PRN PRN Reason: NAUSEA/VOMITING Sodium Chloride () 10 - 40 ml IV UD PRN PRN Reason: SALINE FLUSH Last Admin: 12/09/19 11:09 Dose: 10 ml Documented by: STROKE Vital Signs/Narrative: Vital Signs Temp Pulse Resp BP Pulse Ox 12/09/19 09:56 98.8 F 65 18 121/67 H 100 Medical Necessity - Tobacco Use Smoking Status: Former smoker Tobacco Use: Non-smoker Assessment/Plan All Active Problems Diarrhea (Acute) Enteritis (Acute) Intrahepatic bile duct dilation (Acute) 1. Chronic diarrhea can due to enteritis/colitis, appears to be resolving Lactoferrin positive, stool for enteric panel negative Patient has had only 1 more bowel movement since admission. Low suspicion for C. difficile We will continue to monitor 2. Abnormal CT?dilated intrahepatic ducts, status post MRCP, reported normal General surgery following, we will follow-up on recommendations 3. Electrolyte imbalances secondary to #1-hypokalemia/hypomagnesemia Potassium is 2.8, magnesium is 1.8 Repeat blood work at 8 PM and in a.m. 4. Severe malnutrition related to suspected malabsorption , inadequate protein-energy intake Butt Presser consulted, on nutritional supplements 5. Acute kidney injury CKD stage III, prerenal due to #1 Admitting creatinine was 1.11. Creatinine now is 0.97 Continue on gentle fluids, complete blood work in a.m. 6. Abdominal aortic aneurysm, more than 5.[address], stable 7. Hypothyroidism, continue levothyroxine 8. Hypertension, controlled, lisinopril on hold on account of CRIS Will continue to monitor renal function Monitor vitals closely 9. Depression, continue on Zoloft 10. DVT prophylaxis with Lovenox subcu Inpatient E&M: 15852 Subs Hosp L2
[2019-12-09 14:23] VITALS: BP 122/56; PULSE 62; RESP 18; TEMP 36.7; O2SAT 99
[2019-12-09] MEDS: Levothyroxine 75 MCG Tablet PO (14:42)
[2019-12-09] MEDS: Sertraline 50 MG Tablet PO (14:42)
[2019-12-09] MEDS: 0.9% Normal Saline 1,000 ML 50 ML IV (16:30)
[2019-12-09 20:25] VITALS: BP 115/58; PULSE 70; RESP 18; TEMP 36.7; O2SAT 93
[2019-12-09 21:15] LABS: Anion Gap 8 (5-15); BUN 16 mg/dL (7-18); BUN/Creat Ratio 15.1 RATIO (10-20); Calcium,Total 7.9 mg/dL (8.5-10.1); Chloride 118 mmol/L (98-107); Creatinine, Serum 1.06 mg/dL (0.55-1.02); EST Glomerular Filtration Rate 53 mL/min (>60); Est Glom Filt Rate - Afr Amer 64 mL/min (>60); Estimated Creatinine Clearance 32.31 ml/min; Glucose 116 mg/dL (74-106); Sodium Level 148 mmol/L (136-145)
[2019-12-10] MEDS: Potassium Chloride 10mEq/100mL 10 MEQ/100 ML IV.SOLN. 100 MEQ IV BOLUS ×2 (01:10→02:28)
[2019-12-10 02:25] VITALS: BP 136/69; PULSE 66; RESP 16; TEMP 36.5; O2SAT 96
[2019-12-10 04:53] LABS: Absolute Lymphocyte Count 1.72 X10^3/uL (0.83-4.51); Absolute Neutrophil Count 5.4 X10^3/uL (2.0-7.7); Basophil# 0.03 X10^3/uL; Basophil% 0.4 % (0-1); Eosinophil# 0.19 X10^3/uL; Eosinophils% 2.4 % (0-5); Hemoglobin 11.7 g/dL (12.0-15.0); Lymphocyte # 1.72 X10^3/ul (4.0); Lymphocyte % 22.1 % (19-41); Mean Corp Hgb Conc 31.6 g/dL (32-36); Mean Corpuscular Hgb 27.8 pg (27.0-32.0); Mean Corpuscular Volume 87.9 fL (81-99); Mean Platelet Vol. 10.6 fl (6.2-12.0); Monocyte% 6.4 % (0-10); NRBC Flagged by Analyzer 0 % (0-5); Neutrophil # 5.35 X10^3/uL (2.7-7.7); Neutrophil % 68.6 % (47-70); Platelet Count 171 K/mm3 (150-450); RBC Distribution Width CV 14.5 % (11.6-14.6); RBC Distribution Width SD 46.6 fl (35.1-43.9); Red Blood Count 4.21 M/mm3 (4.2-5.4); White Blood Count 7.8 K/mm3 (4.4-11.0)
[2019-12-10 05:08] LABS: AST(SGOT) 36 U/L (15-37); Alanine Aminotransfer ALT/SGPT 60 U/L (13-56); Albumin, Serum 2.8 g/dL (3.2-5.0); Alkaline Phosphatase 73 U/L (45-117); Anion Gap 5 (5-15); BUN 14 mg/dL (7-18); Calcium,Total 8.2 mg/dL (8.5-10.1); Chloride 118 mmol/L (98-107); EST Glomerular Filtration Rate 56 mL/min (>60); Est Glom Filt Rate - Afr Amer 68 mL/min (>60); Estimated Creatinine Clearance 34.25 ml/min; Globulin 2.9 g/dL (2.2-4.2); Glucose 95 mg/dL (74-106); Magnesium 2.1 mg/dL (1.6-2.6); Potassium 4.2 mmol/L (3.5-5.1); Protein, Total 5.7 g/dL (6.4-8.2); Sodium Level 146 mmol/L (136-145)
[2019-12-10] MEDS: Levothyroxine 75 MCG Tablet PO (05:41)
--- NOTE | 2019-12-10 06:38 | PCM.PN.SRG ---
Patient Problems: Active and Suspected Problems Diarrhea (Acute) Enteritis (Acute) Intrahepatic bile duct dilation (Acute) Subjective: Patient is having no abdominal pain he did not have any diarrhea overnight - Physical Exam Vitals/I&O's: Vital Signs Temp Pulse Resp BP Pulse Ox 97.7 F L 66 16 136/69 H 96 12/10/19 02:25 12/10/19 02:25 12/10/19 02:25 12/10/19 02:25 12/10/19 02:25 Oxygen Delivery Method Room Air Weight: 110 lb 3.698 oz Body Mass Index (BMI) 19.2 Intake and Output for Last 24 Hours 12/08/19 12/09/19 12/10/19 23:59 23:59 23:59 Intake Total 1050 / 1320 2565.67 / 2565.67 350 / 350 Balance 1050 / 1320 2565.67 / 2565.67 350 / 350 General: Alert, Oriented x3 Neck: No JVD Cardiovascular: Regular rate, Regular Rhythm Abdomen: Soft, Non Tender, Non-Distended Microbiology Past 72 Hours 12/08/19 14:25 Urine, Clean Catch Urine Culture - Preliminary Presumptive E. coli 12/08/19 20:35 Stool Enteric Bacteriology - Final 12/08/19 20:35 Stool Stool Lactoferrin - Final Laboratory Results 12/09/19 06:18: Sodium 146 H, Potassium 2.8 L, Chloride 114 H, Carbon Dioxide 24.0, Anion Gap 8, BUN 13, Creatinine 0.97, Estim Creat Clear Calc 35.31, Est GFR (MDRD) Af Amer 70, Est GFR (MDRD) Non-Af 58 L, BUN/Creatinine Ratio 13.4, Glucose 92, Calcium 7.6 L, Phosphorus 2.8, Magnesium 1.8, Total Bilirubin 0.30, AST 64 H, ALT 75 H, Alkaline Phosphatase 72, Total Protein 5.4 L, Albumin 2.6 L, Globulin 2.8, Albumin/Globulin Ratio 0.9, TSH 3.21 12/09/19 20:25: Sodium 148 H, Potassium 3.0 L, Chloride 118 H, Carbon Dioxide 22.0, Anion Gap 8, BUN 16, Creatinine 1.06 H, Estim Creat Clear Calc 32.31, Est GFR (MDRD) Af Amer 64, Est GFR (MDRD) Non-Af 53 L, BUN/Creatinine Ratio 15.1, Glucose 116 H, Calcium 7.9 L 12/10/19 04:30: WBC 7.8, RBC 4.21, Hgb 11.7 L, Hct 37.0, MCV 87.9, MCH 27.8, MCHC 31.6 L, RDW Std Deviation 46.6 H, RDW Coeff of Sol 14.5, Plt Count 171, MPV 10.6, Immature Gran % (Auto) 0.100, Neut % (Auto) 68.6, Lymph % (Auto) 22.1, Wise % (Auto) 6.4, Eos % (Auto) 2.4, Baso % (Auto) 0.4, Absolute Neuts (auto) 5.4, Absolute Lymphs (auto) 1.72, Nucleated RBC % 0 12/10/19 04:30: Sodium 146 H, Potassium 4.2, Chloride 118 H, Carbon Dioxide 23.0, Anion Gap 5, BUN 14, Creatinine 1.00, Estim Creat Clear Calc 34.25, Est GFR (MDRD) Af Amer 68, Est GFR (MDRD) Non-Af 56 L, BUN/Creatinine Ratio 14.0, Glucose 95, Calcium 8.2 L, Magnesium 2.1, Total Bilirubin 0.40, AST 36, ALT 60 H, Alkaline Phosphatase 73, Total Protein 5.7 L, Albumin 2.8 L, Globulin 2.9, Albumin/Globulin Ratio 1.0 Current Medications Acetaminophen (Tylenol) 650 mg PO Q6H PRN PRN PRN Reason: Pain Score 1-10/Temp > 100.7 F Enoxaparin Sodium (Lovenox) 30 mg SC DAILY [facility] Last Admin: 12/09/19 09:53 Dose: 30 mg Documented by: Sodium Chloride () 1,000 mls @ 50 mls/hr IV .Q20H [facility] Last Admin: 12/09/19 16:30 Dose: 50 mls/hr Documented by: Piperacillin Sod/Tazobactam (Sod 3.375 gm/ Sodium Chloride) 50 mls @ 12.5 mls/hr IV Q8 [facility] Last Admin: 12/10/19 05:41 Dose: 12.5 mls/hr Documented by: Levothyroxine Sodium (Synthroid) 75 mcg PO DAILY@0600 [facility] Last Admin: 12/10/19 05:41 Dose: 75 mcg Documented by: Melatonin (Melatonin) 3 mg PO QHS PRN PRN PRN Reason: INSOMNIA Nutritional Formula (Lactose Free) (Ensure Enlive) 120 ml PO 4X/DAY [facility] Last Admin: 12/09/19 21:05 Dose: 120 ml Documented by: Ondansetron HCl (Zofran) 4 mg IV Q8H PRN PRN PRN Reason: NAUSEA/VOMITING Sertraline HCl (Zoloft) 50 mg PO DAILY [facility] Last Admin: 12/09/19 14:42 Dose: 50 mg Documented by: Sodium Chloride () 10 - 40 ml IV UD PRN PRN Reason: SALINE FLUSH Last Admin: 12/09/19 11:09 Dose: 10 ml Documented by: Medical Necessity - Tobacco Use Smoking Status: Former smoker Tobacco Use: Non-smoker Assessment/Plan All Active Problems Diarrhea (Acute) Enteritis (Acute) Intrahepatic bile duct dilation (Acute) 84-year-old female with dilated intrahepatic ducts 1. Patient had MRCP yesterday which was completely normal. There is no dilation or evidence of stones in the bile duct. Patient has not had any diarrhea overnight. She may be discharged home today and follow-up with her GI doctor as scheduled to discuss the chronic diarrhea. Jacobo Nicholas MD Pager: [facility] [address] [place] [address], [address] [place] [address] Office:
--- NOTE | 2019-12-10 07:40 | PCM.DC ---
- Discharge Diagnoses Current Active Problems: Current Active and Chronic Problems Diarrhea (Acute) Enteritis (Acute) Intrahepatic bile duct dilation (Acute) Reason(s) for Visit for Discharge Instructions: Diarrhea You will use the following diet at home:: Regular Your food should be the consistency of: Regular Your liquids should be the consistency of: Regular/Thin Discharge Activity: Return to Normal Activity Additional Instructions: Continue to keep yourself hydrated. Complete your antibiotics. Observe strict hand hygiene. Follow-up with your primary care doctor within a week to have repeat blood work to check on kidney and and potassium levels. You need to also see the gravity flow irrigator in the outpatient to follow-up on your chronic diarrhea. Allergies/Adverse Reactions: Allergies ciprofloxacin [From Cipro] Allergy (Verified 12/08/19 13:39) Hives ciprofloxacin HCl [From Cipro] Allergy (Verified 12/08/19 13:39) Hives amoxicillin trihydrate [From Augmentin] Adverse Reaction (Verified 12/08/19 13:39) Abd cramps/diarrhea potassium clavulanate [From Augmentin] Adverse Reaction (Verified 12/08/19 13:39) Abd cramps/diarrhea Medications to take at Discharge Lisinopril [Zestril] 10 mg PO DAILY 01/08/13 Levothyroxine [Synthroid] 75 mcg PO DAILY 12/08/19 Sertraline HCl [Zoloft] 50 mg PO DAILY 12/08/19 Cefdinir [Omnicef [equiv]] 300 mg PO Q12H 6 Days #12 cap 12/10/19 Ensure Enlive 120 ml PO 4X/DAY 30 Days #120 liquid 12/10/19 metroNIDAZOLE [Flagyl] 500 mg PO Q8H 6 Days #18 tab 12/10/19 The following prescriptions were given: Ensure Enlive 120 ml PO 4X/DAY 30 Days #120 liquid Transmission Status: Pending to [id number] metroNIDAZOLE [Flagyl] 500 mg PO Q8H 6 Days #18 tab Transmission Status: Pending to [id number] Cefdinir [Omnicef [equiv]] 300 mg PO Q12H 6 Days #12 cap Transmission Status: Pending to [id number] Primary Care Physician: Francisco Javier Elizabeth III, MD [Primary Care Provider] - Please follow up with your Primary Care Physician in: within 1-2 weeks Test Results: Test results from this visit will be discussed in further detail at your follow-up appointment, if applicable. When: Follow-up with your gravity flow irrigator within 1-2 weeks Proposed Discharge Date: 12/10/19
--- NOTE | 2019-12-10 07:42 | DS.PCM_ITS ---
Discharge Date and Diagnosis Date of Admission: 12/08/19 Date of Discharge: 12/10/19 - Primary Discharge Diagnosis Acute Problems: Active Problems Acute on chronic diarrhea can due to acute enteritis/colitis Abnormal CT?dilated hepatic ducts Hypomagnesemia Hypokalemia Hypernatremia secondary dehydration Acute kidney injury on CKD stage III Abdominal aortic aneurysm - Secondary Discharge Diagnosis Chronic Problems: Chronic Problems Hypothyroid (Chronic) Hypertension (Chronic) Depression (Chronic) Hospital Course and Treatment Imaging Results: Clinical Impression(s) from Imaging Studies Abdomen/Pelvis CT 12/08/19 14:00 IMPRESSION: Significant intrahepatic biliary dilatation of uncertain etiology. No discrete lesion noted within the liver. Multiple gallstones are noted within the gallbladder there is no wall thickening or pericholecystic fluid and no extrahepatic biliary dilatation is noted. Findings could be due to a stricture, or nonradiopaque stone. There is no demonstrated stone in the extrahepatic common bile duct Fluid distended ascending and transverse colon suggest enteritis Sigmoid diverticulosis Peripherally calcified abdominal aorta with aneurysmal dilatation at the junction of the thoracic and abdominal aorta with maximum dimensions of 5 x 4.6 cm Degenerative bony changes Pessary supports the bladder Degenerative bony changes Electronically Signed: Kerwin Thakur MD at 16:56 EDT , Service support , MRCP 12/09/19 10:00 IMPRESSION: Normal MR Cholangiopancreatography (MRCP). Electronically Signed: Levy Monroe MD at 12:44 EDT Tel , Service support , General surgery Operations: None Procedures: - - MRCP 12/09/19 Summary of Care Provided: The patient is a 84 year old F with past medical history of hypertension, hypothyroidism, and depression who presented with diarrhea ongoing for about 6 months. Patient admits to having 2 bowel movements of liquid stools during the day. No nocturnal diarrhea. She had work-up in the outpatient with Dr. Francisco Javier Elizabeth, which included stool samples and also had her well water checked. Work- up so far has been unremarkable. She denied any fever or blood in her stool. She admits to having lost more than 10 pounds over the past 1 month. Her oral intake is poor. There is no abdominal pain. Patient's work-up in the emergency department including a CT of the abdomen and pelvis showed significant intrahepatic ducts dilatation with no discrete liver lesions or gallstones. Her gallbladder was otherwise normal. She also had evidence of inflammation in her ascending and transverse colon consistent with enteritis/colitis. Sigmoid diverticula was present. Patient had a calcified aortic aneurysm with a size of 5 x 4.6 cm. The emergency department discussed with general surgery who recommended MRCP in the morning. Patient had electrolyte imbalances with potassium was 3.4, magnesium 1.8. These were replaced. MRCP came back negative. She was monitored overnight, repeat blood work showed resolve electrolyte. She had hyponatremia secondary to poor free water intake. She was encouraged to keep yourself hydrated. She will need repeat blood work within a week. She needs to follow-up with gastroenterology in the outpatient for work-up for chronic diarrhea. Subjective: On the day of discharge, patient seen and examined. She has had only one bowel movement overnight. Denied any dizziness or palpitation. Potassium is normal and magnesium is 2.1 Objective: Physical exam: General: Alert, Oriented x3, Cooperative, No apparent distress, Well developed, Well nourished, HEENT: Atraumatic, PERRLA, EOMI, Normocephalic, EAC Clear Oral: Moist Mucosa, No Gingival or Mucosal Lesions/ Ulcerations, - - upper dentures in place Neck: Supple, No JVD, Negative Carotid Bruits, Negative Hepatojugular Reflux, No Nodes, Trachea Midline, Thyroid Normal Size and Texture Lungs: Clear to auscultation, Normal air movement, No rhonchi, No wheeze, No rales Cardiovascular: Regular rate, Regular Rhythm, Normal S1, Normal S2, No murmurs, No Ectopic Activity, No rub noted, No Gallop Abdomen: Bowel Sounds Present, Soft, Non Tender, Non-Distended, No Hepato- splenomegaly, No hernias noted Extremities: No clubbing, No cyanosis, No edema, Capillary Refill Less than 3 Seconds, No Calf Tenderness, Peripheral Pulses Normal Skin: No rashes, No breakdown Musculoskeletal: No Tenderness to Palpation of Joints or Extremities, Arthritic Changes, Cachexia, Muscle Wasting Lymphatic: No Cervical, Supraclavicular, or Inguinal Adenopathy Neurological: Cranial nerves II-XII grossly intact, Deep Tendon Reflexes 2+/4 a nd Symmetrical, Neuro grossly intact, Muscle tone normal, Sensory exam intact to light touch and pain, Coordination normal, - - generalized weakness proximal >>distal Psych/Mental Status: Normal Affect, Anxious, Alert and oriented to time, place, person, mood and affect - Physical Exam Vitals/I&O's: Vital Signs Temp Pulse Resp BP Pulse Ox 97.7 F L 66 16 136/69 H 96 12/10/19 02:25 12/10/19 02:25 12/10/19 02:25 12/10/19 02:25 12/10/19 02:25 Oxygen Delivery Method Room Air Weight: 50 kg Body Mass Index (BMI) 19.2 Intake and Output for Last 24 Hours 12/08/19 12/09/19 12/10/19 23:59 23:59 23:59 Intake Total 1050 / 1320 2565.67 / 2565.67 350 / 350 Balance 1050 / 1320 2565.67 / 2565.67 350 / 350 Microbiology Past 72 Hours 12/08/19 14:25 Urine, Clean Catch Urine Culture - Preliminary Presumptive E. coli 12/08/19 20:35 Stool Enteric Bacteriology - Final 12/08/19 20:35 Stool Stool Lactoferrin - Final Laboratory Results 12/09/19 20:25: Sodium 148 H, Potassium 3.0 L, Chloride 118 H, Carbon Dioxide 22.0, Anion Gap 8, BUN 16, Creatinine 1.06 H, Estim Creat Clear Calc 32.31, Est GFR (MDRD) Af Amer 64, Est GFR (MDRD) Non-Af 53 L, BUN/Creatinine Ratio 15.1, Glucose 116 H, Calcium 7.9 L 12/10/19 04:30: WBC 7.8, RBC 4.21, Hgb 11.7 L, Hct 37.0, MCV 87.9, MCH 27.8, MCHC 31.6 L, RDW Std Deviation 46.6 H, RDW Coeff of Sol 14.5, Plt Count 171, MPV 10.6, Immature Gran % (Auto) 0.100, Neut % (Auto) 68.6, Lymph % (Auto) 22.1, Lane % (Auto) 6.4, Eos % (Auto) 2.4, Baso % (Auto) 0.4, Absolute Neuts (auto) 5.4, Absolute Lymphs (auto) 1.72, Nucleated RBC % 0 12/10/19 04:30: Sodium 146 H, Potassium 4.2, Chloride 118 H, Carbon Dioxide 23.0, Anion Gap 5, BUN 14, Creatinine 1.00, Estim Creat Clear Calc 34.25, Est GFR (MDRD) Af Amer 68, Est GFR (MDRD) Non-Af 56 L, BUN/Creatinine Ratio 14.0, Glucose 95, Calcium 8.2 L, Magnesium 2.1, Total Bilirubin 0.40, AST 36, ALT 60 H , Alkaline Phosphatase 73, Total Protein 5.7 L, Albumin 2.8 L, Globulin 2.9, Albumin/Globulin Ratio 1.0 Current Medications Acetaminophen (Tylenol) 650 mg PO Q6H PRN PRN PRN Reason: Pain Score 1-10/Temp > 100.7 F Enoxaparin Sodium (Lovenox) 30 mg SC DAILY [facility] Last Admin: 12/09/19 09:53 Dose: 30 mg Documented by: Sodium Chloride () 1,000 mls @ 50 mls/hr IV .Q20H [facility] Last Admin: 12/09/19 16:30 Dose: 50 mls/hr Documented by: Piperacillin Sod/Tazobactam (Sod 3.375 gm/ Sodium Chloride) 50 mls @ 12.5 mls/hr IV Q8 [facility] Last Admin: 12/10/19 05:41 Dose: 12.5 mls/hr Documented by: Levothyroxine Sodium (Synthroid) 75 mcg PO DAILY@0600 [facility] Last Admin: 12/10/19 05:41 Dose: 75 mcg Documented by: Melatonin (Melatonin) 3 mg PO QHS PRN PRN PRN Reason: INSOMNIA Nutritional Formula (Lactose Free) (Ensure Enlive) 120 ml PO 4X/DAY [facility] Last Admin: 12/09/19 21:05 Dose: 120 ml Documented by: Ondansetron HCl (Zofran) 4 mg IV Q8H PRN PRN PRN Reason: NAUSEA/VOMITING Sertraline HCl (Zoloft) 50 mg PO DAILY [facility] Last Admin: 12/09/19 14:42 Dose: 50 mg Documented by: Sodium Chloride () 10 - 40 ml IV UD PRN PRN Reason: SALINE FLUSH Last Admin: 12/09/19 11:09 Dose: 10 ml Documented by: Discharge Diet: Low fat/ Low Cholesterol, 2000 mg Sodium Diet Discharge Activity: Return to Normal Activity Home Medications: Medications to take at Discharge Lisinopril [Zestril] 10 mg PO DAILY 01/08/13 Levothyroxine [Synthroid] 75 mcg PO DAILY 12/08/19 Sertraline HCl [Zoloft] 50 mg PO DAILY 12/08/19 Cefdinir [Omnicef [equiv]] 300 mg PO Q12H 6 Days #12 cap 12/10/19 Ensure Enlive 120 ml PO 4X/DAY 30 Days #120 liquid 12/10/19 metroNIDAZOLE [Flagyl] 500 mg PO Q8H 6 Days #18 tab 12/10/19 Following Prescriptions Were Given to Patient: Ensure Enlive 120 ml PO 4X/DAY 30 Days #120 liquid Transmission Status: Received by [facility] metroNIDAZOLE [Flagyl] 500 mg PO Q8H 6 Days #18 tab Transmission Status: Received by [facility] Cefdinir [Omnicef [equiv]] 300 mg PO Q12H 6 Days #12 cap Transmission Status: Received by [facility] Primary Care Physician: Francisco Javier Elizabeth III, MD [Primary Care Provider] - Please follow up with your Primary Care Physician in: within 1-2 weeks When: Follow-up with your supervisor locomotive within 1-2 weeks Disposition: Home Minutes spent on discharge:: 40 Patient Condition:: Stable Medical Necessity - Tobacco Use Smoking Status: Former smoker Tobacco Use: Non-smoker Meaningful Use Info Meaningful Use Diagnoses (Choose all that apply): None applicable Inpatient E&M: 03067 Disch Hosp
[2019-12-10 07:55] VITALS: BP 136/64; PULSE 66; RESP 16; TEMP 36.4; O2SAT 96
[2019-12-10] MEDS: Enoxaparin 30 MG/0.3 ML Syringe SC (09:55)
[2019-12-10] MEDS: Sertraline 50 MG Tablet PO (09:56)
[2019-12-11 20:54] LABS: Giardia Lamblia, Stool EIA Negative (Negative)
[2019-12-18 17:14] LABS: Calprotectin, Stool 185 ug/g (0-120)
== END 2019-12-10 11:30 | disposition home or self-care (01) | DRG 391 ==
LOC: ED 14:48 → MS3 18:14
PROVIDERS: Admitting Provider Internal Medicine; Emergency Provider Emergency Medicine; PCP Family Medicine; Visit Provider Internal Medicine
DX: K52.9 Noninfective gastroenteritis and colitis, unspecified (principal); E43 Unspecified severe protein-calorie malnutrition; Q44.5 Other congenital malformations of bile ducts; N17.9 Acute kidney failure, unspecified; Z68.1 Body mass index [BMI] 19.9 or less, adult; E87.1 Hypo-osmolality and hyponatremia; E87.6 Hypokalemia; E83.42 Hypomagnesemia; E86.0 Dehydration; N18.3 Chronic kidney disease, stage 3 (moderate); I12.9 Hypertensive chronic kidney disease with stage 1 through stage 4 chronic kidney disease, or unspecified chronic kidney disease; I71.4 Abdominal aortic aneurysm, without rupture; Z79.899 Other long term (current) drug therapy; Z87.891 Personal history of nicotine dependence; E03.9 Hypothyroidism, unspecified; F32.9 Major depressive disorder, single episode, unspecified; Z23 Encounter for immunization
CPT/HCPCS: 36415; 74177; 74181; 80048; 80053; 81001; 83630; 83690; 83735; 83993; 84100; 84443; 85025; 87077; 87086; 87088; 87186; 87329; 87506; 97802; 99251; 99284; G0008; J7030; J7050; Q9967; 90686; A4216; G0463

== ENCOUNTER 2020-05-23 23:35 | Outpatient (RCR) | payer MEDICARE, SELFPAY ==
[2020-05-23] MEDS: COVID-19 VACC, MRNA(PFIZER)/PF 30 MCG/0.3 ML SYRINGE IM (17:31)
[2020-06-13] MEDS: COVID-19 VACC, MRNA(PFIZER)/PF 30 MCG/0.3 ML SYRINGE IM (17:02)
== END 2020-08-27 23:59 ==
LOC: IMMUN 23:35
PROVIDERS: PCP Family Medicine; Visit Provider Family Medicine
DX: Z23 Encounter for immunization (principal)
CPT/HCPCS: 0001A; 0002A; 91300

== ENCOUNTER 2022-11-11 09:12 | Outpatient (CLI) | payer MEDICARE, OTHER, SELFPAY ==
[2022-11-11] VITALS (7 sets, daily range): BP systolic 90–155; BP diastolic 41–59; PULSE 62–72; RESP 16; TEMP 35.6–36.1; O2SAT 99–100
[2022-11-11] MEDS: 0.9% NaCl Peripheral Flush Adult/Peds IV (09:30)
== END 2022-11-11 09:13 | disposition home or self-care (01) ==
LOC: MEDOUTP 09:12
PROVIDERS: PCP Internal Medicine; Referring Provider Internal Medicine; Visit Provider Internal Medicine
DX: D50.9 Iron deficiency anemia, unspecified (principal)
CPT/HCPCS: 36415; 36430; 86850; 86900; 86901; 86920; 86922; J7040; P9016; A4216

== ENCOUNTER 2023-12-13 19:12 | Emergency (ER) | payer MEDICARE, OTHER, SELFPAY ==
[2023-12-13 19:13] VITALS: BP 171/70; PULSE 68; RESP 16; TEMP 36; O2SAT 100
[2023-12-13 20:31] LABS: Absolute Lymphocyte Count 1.32 X10^3/uL (0.83-4.51); Absolute Neutrophil Count 8.1 X10^3/uL (2.0-7.7); Basophil# 0.03 X10^3/uL; Basophil% 0.3 % (0-1); Eosinophil# 0.08 X10^3/uL; Eosinophils% 0.8 % (0-5); Hematocrit 25.7 % (37-47); Hemoglobin 6.8 g/dL (12.0-15.0); Lymphocyte # 1.32 X10^3/ul (0.83-4.51); Lymphocyte % 12.8 % (19-41); Mean Corp Hgb Conc 26.5 g/dL (32-36); Mean Corpuscular Hgb 18.2 pg (27.0-32.0); Mean Corpuscular Volume 68.9 fL (81-99); Mean Platelet Vol. 11.2 fl (6.2-12.0); Monocyte# 0.68 X10^3/uL; Monocyte% 6.6 % (0-10); NRBC Flagged by Analyzer 0 % (0-5); Neutrophil # 8.13 X10^3/uL (2.7-7.7); POSITIVE MORPHOLOGY YES; Platelet Count 188 K/mm3 (150-450); RBC Distribution Width CV 20.2 % (11.6-14.6); RBC Distribution Width SD 49.9 fl (35.1-43.9); Red Blood Count 3.73 M/mm3 (4.2-5.4); White Blood Count 10.3 K/mm3 (4.4-11.0)
[2023-12-13 20:39] LABS: Anion Gap 8 (5-15); BUN 14 mg/dL (7-18); BUN/Creat Ratio 11.3 RATIO (10-20); Calcium,Total 8.8 mg/dL (8.5-10.1); Chloride 112 mmol/L (98-107); Creatinine, Serum 1.24 mg/dL (0.55-1.02); EST Glomerular Filtration Rate 44 mL/min (>60); Est Glom Filt Rate - Afr Amer 53 mL/min (>60); Glucose 115 mg/dL (74-106); Potassium 3.2 mmol/L (3.5-5.1); Sodium Level 142 mmol/L (136-145)
[2023-12-13 20:44] LABS: Differential Indicated SCAN CRITERIA MET
--- NOTE | 2023-12-13 22:10 | EX.ED.DYSGE1 ---
HPI History of Present Illness Chief Complaint: Abn Labs Narrative Narrative: Chief complaint and HPI: Anemia. 88-year-old female with Alzheimer's dementia, HTN, hypothyroidism, anemia presents for evaluation of acute on chronic anemia. Patient is a poor historian secondary to her Alzheimer's dementia therefore history is obtained by family. Family states that the patient has known anemia needing occasional blood transfusions. They state last week the patient got maintenance blood work performed at her PCPs office and her hemoglobin was found to be low. They got a call stating that the patient needed to come to the ED for transfusion. Family states that her anemia has never been further worked up. They state that they have discussed management in the past with further workup for EGDs and colonoscopies however everyone has declined this given patient's Alzheimer's disease and therefore further workup has been declined. Patient and family deny any lightheadedness, increased fatigue, nausea, vomiting, abdominal pain, falls. They states she is asymptomatic from her anemia. Patient is not on any blood thinners. Review of systems: See HPI Medications: As listed on the chart Allergies: As listed on the chart PFSH: Per chart Vital signs: As listed on the chart. Reviewed. Physical exam: Gen: Alert and oriented to self only-patient's baseline per family, NAD Head: Normocephalic, atraumatic Eyes: No sclera icterus, conjunctiva clear, PERRL, EOMI ENT: Moist mucous membranes Neck: Trachea midline, No JVD CV: RRR, no murmurs, no peripheral edema Resp: Lungs CTA BL, no w/r/c GI: Abd soft, non-distended, non-tender, no r/r/g Musc: Full ROM, no deformity Skin: Warm, dry Neuro: Alert, grossly intact, sensation intact Psych: Cooperative, appropriate mood and affect PFS PFS Home Medications ?Medication ?Instructions ?Recorded ?Last Taken ?Type lisinopril 10 mg tablet 10 mg PO DAILY blood pressure 01/08/13 12/08/19 History levothyroxine 75 mcg tablet 75 mcg PO DAILY thyroid 12/08/19 12/08/19 History sertraline 50 mg tablet 50 mg PO DAILY mental health 12/08/19 12/08/19 History Allergy/AdvReac Type Severity Reaction Status Date / Time ciprofloxacin (From Cipro) Allergy Hives Verified 12/13/23 19:15 ciprofloxacin HCl (From Allergy Hives Verified 12/13/23 19:15 Cipro) amoxicillin trihydrate (From AdvReac Abd Verified 12/13/23 19:15 Augmentin) cramps/diarrhea potassium clavulanate (From AdvReac Abd Verified 12/13/23 19:15 Augmentin) cramps/diarrhea Social History Smoking Status: Former smoker EXAM Physical Exam Const Vital Signs: 12/13/23 19:13 12/13/23 22:10 12/13/23 22:20 Temperature 96.8 F L Temperature Source Temporal Pulse Rate 68 71 Respiratory Rate 16 16 Respiratory Effort Normal Non-Labored Respiratory Pattern Normal Blood Pressure 171/70 H 155/78 H Blood Pressure Mean 103 103 Blood Pressure Source Blood Pressure Position Blood Pressure Location Pulse Ox 100 Oxygen Delivery Method Room Air 12/13/23 23:58 12/14/23 00:13 Temperature 97.8 F 98.2 F Temperature Source Oral Oral Pulse Rate 73 67 Respiratory Rate 20 H 22 H Respiratory Effort Respiratory Pattern Blood Pressure 145/78 H 154/69 H Blood Pressure Mean 100 97 Blood Pressure Source Monitor Monitor Blood Pressure Position Semi-Fowlers Semi-Fowlers Blood Pressure Location Left Arm Left Arm Pulse Ox 95 95 Oxygen Delivery Method Room Air Room Air MDM MDM MDM Narrative Medical decision making narrative: 88-year-old female with history of anemia status post transfusions in the past presents for evaluation of acute on chronic anemia. Family states that patient is always sent here for transfusion. Patient is asymptomatic per herself and family. Basic labs obtained. CBC without leukocytosis. Patient does have anemia with hemoglobin of 6.8. Unknown what her baseline hemoglobin is however her last laboratory values in our system is from 12/10/2019 and at that time her hemoglobin was 11.7. BMP shows hypokalemia of 3.2. Patient has a history of this. Liquid potassium ordered. Patient has renal insufficiency with creatinine of 1.24. Family states the patient has a been eating and drinking well. They states she has baseline CKD. On chart review, patient has had renal insufficiency in the past. Family and patient was updated on all the results. Family and patient at this time state that they would just like a blood transfusion. They state the patient is asymptomatic and have not witnessed any overt bleeding. I did offer rectal exam as I suspect she probably has a GI bleed. Patient and family declined. They state that as talked about previously they would not want to do any further workup for this. They state they just do transfusions as needed. They declined admission and further workup. Therefore type and screen ordered and patient will be transfused 1 unit packed RBCs with follow-up with PCP. Family and patient are in agreement to the plan. Patient tolerated blood transfusion. Patient will be discharged home. Family was educated that they need to call the PCP office this patient will need to have repeat hemoglobin in 1 to 2 days. They confirmed understanding. Return precautions explained such as developing symptoms. Impression: 1. Acute on chronic anemia 2. Anemia requiring blood transfusion 3. Renal insufficiency Lab Data Labs: Laboratory Results - last 24 hr 12/13/23 12/13/23 20:10 22:15 WBC 10.3 RBC 3.73 L Hgb 6.8 L Hct 25.7 L MCV 68.9 L MCH 18.2 L MCHC 26.5 L RDW Std Deviation 49.9 H RDW Coeff of Sol 20.2 H Plt Count 188 MPV 11.2 Immature Gran % (Auto) 0.500 Neut % (Auto) 79.0 H Lymph % (Auto) 12.8 L [place] % (Auto) 6.6 Eos % (Auto) 0.8 Baso % (Auto) 0.3 Absolute Neuts (auto) 8.1 H Absolute Lymphs (auto) 1.32 Nucleated RBC % 0 Platelet Estimate ADEQUATE RBC Morphology N CHROM Hypochromasia 1+ Anisocytosis 1+ Microcytosis 1+ Sodium 142 Potassium 3.2 L Chloride 112 H Carbon Dioxide 22.0 Anion Gap 8 BUN 14 Creatinine 1.24 H Est GFR (MDRD) Af Amer 53 L Est GFR (MDRD) Non-Af 44 L BUN/Creatinine Ratio 11.3 Glucose 115 H Calcium 8.8 Blood Type B POSITIVE Antibody Screen NEGATIVE Crossmatch See Detail Discharge Plan Triage Chief Complaint: Abn Labs ED Provider: Carlos A Esparza Dx/Rx/DC Orders Clinical Impression: Acute on chronic anemia Instructions: Anemia Prescriptions: No Action lisinopril 10 MG tablet 10 mg PO DAILY levothyroxine 75 MCG tablet 75 mcg PO DAILY sertraline 50 MG tablet 50 mg PO DAILY Primary Care Provider: Sayda Peace Referrals: Rainer Thorne MD [Med Staff - Bumper Machine Operator] - As soon as possible Activity Restrictions/Additional Instructions: You need to follow-up with your primary care doctor as soon as possible. You will need to have your hemoglobin rechecked in 1 to 2 days. Print Language: Georgian Disposition Disposition: Home, Self Care
[2023-12-13 22:16] LABS: Anisocytosis 1+; Hypochromasia 1+; Platelet Estimate ADEQUATE (ADEQ); Red Cell Morphology N CHROM NORMAL (NORM C&C)
[2023-12-13 22:17] LABS: Microcytosis 1+
[2023-12-13 22:18] VITALS: BMI 16.7
[2023-12-13 22:20] VITALS: BP 155/78; PULSE 71; RESP 16
[2023-12-13] MEDS: Potassium Chloride Oral Soln 20 MEQ/15 ML UDC 40 MEQ PO (22:55)
[2023-12-13 23:58] VITALS: BP 145/78; PULSE 73; RESP 20; TEMP 36.6; O2SAT 95
[2023-12-14 00:13] VITALS: BP 154/69; PULSE 67; RESP 22; TEMP 36.8; O2SAT 95
[2023-12-14 01:13] VITALS: BP 163/84; PULSE 73; RESP 20; TEMP 36.8; O2SAT 97
[2023-12-14 01:42] VITALS: BP 181/94; PULSE 70; RESP 25; TEMP 36.8; O2SAT 95
[2023-12-14 01:44] VITALS: BP 181/94; PULSE 75; RESP 24; TEMP 36.7; O2SAT 96
== END 2023-12-14 01:45 | disposition home or self-care (01) ==
PROVIDERS: Emergency Provider Surgery; PCP Internal Medicine; Referring Provider Surgery; Visit Provider Surgery
DX: D64.9 Anemia, unspecified (principal); G30.9 Alzheimer's disease, unspecified; F02.80 Dementia in other diseases classified elsewhere, unspecified severity, without behavioral disturbance, psychotic disturbance, mood disturbance, and anxiety; E87.6 Hypokalemia; I10 Essential (primary) hypertension; N28.9 Disorder of kidney and ureter, unspecified; E03.9 Hypothyroidism, unspecified; Z87.891 Personal history of nicotine dependence
CPT/HCPCS: 80048; 85025; 86850; 86900; 86901; 86920; 99283; J7040; P9016; A4216

== ENCOUNTER 2024-01-14 14:59 | Inpatient (IN) | payer MEDICARE, OTHER, SELFPAY ==
[2024-01-14] VITALS (19 sets, daily range): BP systolic 130–195; BP diastolic 67–119; PULSE 60–74; RESP 13–27; TEMP 35.9–36.7; O2SAT 95–100; BMI 16.9; BMI 16.4
--- NOTE | 2024-01-14 15:05 | EKG12_ITS ---
Test Reason : NEURO Blood Pressure : / mmHG Vent. Rate : 060 BPM Atrial Rate : 000 BPM P-R Int : 000 ms QRS Dur : 068 ms QT Int : 490 ms P-R-T Axes : 000 071 077 degrees QTc Int : 490 ms NSR Prolonged QT Abnormal ECG Confirmed by ALY WILKS, JEREMIAH ([id number]), greeting card editor ISAAC COLLINS ([id number]) on 01/17/2024 9:23:24 AM Referred By: Confirmed By:JEREMIAH LU MD
--- NOTE | 2024-01-14 15:05 | CT_ITS ---
INDICATION: Neuro deficit, acute, stroke suspected EXAMINATION: CTA HEAD, AND CTA NECK TECHNIQUE: Routine carotid CT angiogram protocol was performed without and with IV contrast. In addition, images were obtained of the [place]. NASCET criteria using the distal ICAs for comparison were used for evaluation of stenoses. 3D reconstructions were reviewed. The protocol utilizes one or more of the following dose reduction techniques: automated exposure control, adjustment of mA and/or kV according to patient size,and/or use of iterative reconstruction technique. IV Contrast dosage and agent: 75 cc of [id number] COMPARISON: No relevant prior comparison study available FINDINGS: --CTA NECK: AORTIC ARCH AND BRANCHES: Atherosclerotic calcifications with partially visualized ectasia of the proximal descending thoracic aorta RIGHT CCA: Atherosclerotic calcifications in the right bulb without significant stenosis. RIGHT ICA: Mild atherosclerotic calcifications without significant stenosis. LEFT CCA: Mild atherosclerotic calcifications in the left bulb without significant stenosis. LEFT ICA: No occlusion, significant stenosis or dissection. RIGHT VERTEBRAL ARTERY: No occlusion, significant stenosis or dissection. LEFT VERTEBRAL ARTERY: Smaller in caliber but patent. NECK SOFT TISSUES: Unremarkable. --CTA HEAD: --Anterior circulation: ICAs: Atherosclerotic calcifications of the cavernous internal carotid arteries with mild stenosis worse on the right side. ACAs: Not visualized ACOM: Present. MCAs: No significant stenosis at the visualized segments. Left M2 segment is slightly narrower in the left side. --Posterior circulation: PCOMs: 80 visualized bilaterally. home comfort advisor: No significant stenosis at the visualized segments. BASILAR ARTERY: No significant stenosis. VERTEBRAL ARTERIES: No significant stenosis at the intradural/visualized segments. There is no demonstrated aneurysm or AVM within the limitation of this examination. CT/STROKE CTA Head AND Neck W/Con IMPRESSION: 1. Mild atherosclerotic calcifications of the cavernous internal carotid arteries with mild narrowing of the right side. 2. No evidence of significant intracranial great vessel stenosis. 3. Mild atherosclerotic calcifications of the common and internal carotid arteries without significant stenosis. 4. Patent bilateral vertebral arteries with dominant right side. N.B. : The above Results were Read Back by Devaughn Ames MD to Maikol Palmer MD, and understanding confirmed on 01/14/2024 15:36:44 (ET). Electronically Signed: Devaughn Ames MD at 15:38 EDT ,
--- NOTE | 2024-01-14 15:05 | CT_ITS ---
STUDY: CT HEAD STROKE PROTOCOL W/O CONTRAST INJECTION REASON FOR EXAM: Female, 88 years old. Neuro deficit, acute, stroke suspected RADIATION DOSAGE (If Supplied By Facility): CTDIvol = ( 44.99 ) mGy, DLP = ( 762.36 ) mGycm TECHNIQUE: Transaxial CT imaging of the brain was performed without administration of intravenous contrast material. Individualized dose optimization techniques were used for this CT. COMPARISON: Comparison is made with prior study November 09, 2019. FINDINGS: Normal soft tissue structures. Normal calvarium. There is moderate cerebral atrophy with widening of the extra-axial spaces and ventricular dilatation. There are areas of decreased attenuation within the white matter tracts of the supratentorial brain, consistent with microvascular disease changes. Normal basal ganglia and thalami. Normal brainstem. There is mild cerebellar atrophy. There is no intracranial hemorrhage. There are no findings of an acute ischemic infarction. Atherosclerotic calcification of the cavernous portions of the internal carotid arteries bilaterally. Normal visualized paranasal sinuses. ASPECT score: CT/STROKE Brain/Head without Cont IMPRESSION: Normal unenhanced CT scan of the brain. N.B. : The above Results were Read Back by Herbie Tolbert MD to Maikol Palmer and understanding confirmed on 01/14/2024 15:21:11 (ET). Electronically Signed: Herbie Tolbert MD at 15:22 EDT ,
[2024-01-14] MEDS: Labetalol (Prefilled) 20 MG/4 ML Vial IV (15:19)
[2024-01-14 15:21] LABS: Bedside Glucose 105 mg/dL (74-106)
--- NOTE | 2024-01-14 15:35 | RAD_ITS ---
INDICATION: Neuro deficit, acute, stroke suspected EXAMINATION/TECHNIQUE: X-RAY - XR Chest 1 View COMPARISON: No relevant prior comparison study available FINDINGS: LINES/DEVICES: None. LUNGS: No consolidation, edema or effusion. No pneumothorax. MEDIASTINUM AND CARDIOVASCULAR STRUCTURES: Cardiac silhouette not enlarged. Tortuosity of the thoracic aorta. Central airways and mediastinal contour are unremarkable. BONES AND SOFT TISSUES: S-shaped scoliosis of the spine. RAD/Chest 1 View IMPRESSION: No radiographic evidence of acute cardiopulmonary disease. Electronically Signed: Devaughn Ames MD at 15:47 EDT ,
--- NOTE | 2024-01-14 15:41 | EX.ED.DYSGE1 ---
HPI History of Present Illness Chief Complaint: Stroke Alert Narrative Narrative: Patient is a 88-year-old female past medical history Alzheimer's, hypothyroidism, hypertension, anemia who presents to the emergency department the chief complaint of altered mental status and difficulty speaking. According to family members around 2:30 PM this afternoon she was sitting in her recliner and slumped over and noted that her speech was very abnormal for her. They noted that she stared off into space for a period of time as well but did not experience any full body shaking. They states that they were able to walk her to the car with a significant mount of's assistance and had her brought here for further evaluation management. They do not believe that she is on any blood thinning medications. At baseline she is able to get up and ambulate alone without any assistive devices. [facility] Medical History Gout Hypothyroid Hypertension Alzheimer disease Home Medications ?Medication ?Instructions ?Recorded ?Last Taken ?Type lisinopril 10 mg tablet 10 mg PO DAILY blood pressure 01/08/13 12/08/19 History levothyroxine 75 mcg tablet 75 mcg PO DAILY thyroid 12/08/19 12/08/19 History sertraline 50 mg tablet 50 mg PO DAILY mental health 12/08/19 12/08/19 History levothyroxine 50 mcg tablet 50 mcg PO DAILY disorder of 01/14/24 Unknown History thyroid gland rivastigmine tartrate 3 mg capsule 3 mg PO BID 01/14/24 Unknown History Allergy/AdvReac Type Severity Reaction Status Date / Time ciprofloxacin (From Cipro) Allergy Hives Verified 01/14/24 15:00 ciprofloxacin HCl (From Allergy Hives Verified 01/14/24 15:00 Cipro) amoxicillin trihydrate (From AdvReac Abd Verified 01/14/24 15:00 Augmentin) cramps/diarrhea potassium clavulanate (From AdvReac Abd Verified 01/14/24 15:00 Augmentin) cramps/diarrhea Social History Smoking Status: Former smoker ROS ROS ED ROS Narrative Review of systems was unobtainable at the time secondary to her altered mental status and difficulty speaking therefore acute care caveat applies EXAM Physical Exam Narrative Exam Narrative: General: Patient lying in bed in no acute distress Head: Atraumatic, normocephalic Eyes: PERRL bilateral, EOMI by, no conjunctival injection noted Neck: Soft, supple, trachea midline Cardiovascular: Regular rate and rhythm no murmurs gallops rubs noted Respiratory: Clear to auscultation bilaterally Abdomen: Soft, nondistended, bowel sounds present x 4 Extremities: +4/5 strength noted in the bilateral upper and lower extremities, no pedal edema no exam, radial pulses +2/4 in the bilateral upper extremities Neurological: Patient following commands knew that she was in the hospital NIH of 2 GCS of 15 Skin: Warm, dry, intact Const Vital Signs: 01/14/24 15:01 01/14/24 15:01 01/14/24 15:10 Temperature Temperature Source Pulse Rate 68 68 Respiratory Rate 23 H 23 H Blood Pressure 195/99 H 195/99 H Blood Pressure Mean 131 131 Pulse Ox 95 95 95 Oxygen Delivery Method Room Air Room Air Room Air 01/14/24 15:10 01/14/24 15:18 01/14/24 15:24 Temperature 98 F Temperature Source Temporal Pulse Rate 74 62 Respiratory Rate 27 H 21 H Blood Pressure 185/115 H 135/83 H Blood Pressure Mean 138 100 Pulse Ox 97 97 Oxygen Delivery Method 01/14/24 15:30 01/14/24 16:00 01/14/24 16:05 Temperature Temperature Source Pulse Rate 62 60 60 Respiratory Rate 20 H 13 15 Blood Pressure 140/71 H 144/79 H 144/79 H Blood Pressure Mean 94 100 100 Pulse Ox 97 100 99 Oxygen Delivery Method Room Air Room Air Room Air 01/14/24 16:30 01/14/24 16:47 Temperature 98.1 F Temperature Source Pulse Rate 61 62 Respiratory Rate 13 20 H Blood Pressure 160/79 H 168/70 H Blood Pressure Mean 106 102 Pulse Ox 98 100 Oxygen Delivery Method Room Air MDM MDM MDM Narrative Medical decision making narrative: Patient is a 88-year-old female who presents to the emerged part with chief complaint of difficulty speaking and slumping in her chair staring off in space. Patient was a stroke alert here in the emergency department her last known well once again was 1430. Patient is not a tenecteplase candidate as her symptoms are improving and neurology evaluated her on telehealth Dr. Nix and believes that she is not a candidate for tenecteplase given her improving symptoms and concern for complex seizure. Patient will have completed workup and then be admitted to the hospital. Patient was given 325 mg aspirin. Patient's CBC reviewed and was largely unremarkable and no evidence leukocytosis white blood count normal at 9.1, hemoglobin was 8.3, platelet count was notably 133. Patient's INR normal at 1.1, PT of 13.9. Patient sodium normal at 141, potassium normal 3.8, creatinine was 1.24, troponin normal at 12. Patient's EKG reviewed and independently interpreted by myself which showed sinus rhythm with a rate of 60 bpm. Patient's glucose was noted to be 105 on [id number] testing and was noted to be 106 on chemistry panel. Patient's chest x-ray was reviewed by myself and by radiology which showed no acute cardiopulmonary processes. Patient CT head without contrast showed no acute intracranial hemorrhages. Patient CTA head and neck reviewed as well and showed mild atherosclerotic calcifications of the cavernosal internal carotid arteries with mild narrowing of the right side no evidence of significant intracranial got great vessel stenosis. Patent bilateral vertebral arteries with dominant right side. Called and discussed case with hospitalist Dr. Mejia who accept patient for admission. Patient was notified as well as family members with all question concerns answered. Lab Data Labs: Laboratory Results - last 24 hr 01/14/24 01/14/24 14:30 15:03 WBC 9.1 RBC 4.02 L Hgb 8.3 L Hct 29.4 L MCV 73.1 L MCH 20.6 L MCHC 28.2 L RDW Std Deviation 60.0 H RDW Coeff of Sol 22.9 H Plt Count 133 L MPV TNP Immature Gran % (Auto) 0.400 Neut % (Auto) 81.9 H Lymph % (Auto) 9.2 L [place] % (Auto) 7.3 Eos % (Auto) 0.9 Baso % (Auto) 0.3 Absolute Neuts (auto) 7.5 Absolute Lymphs (auto) 0.84 Nucleated RBC % 0 Platelet Estimate SLT DEC Hypochromasia 1+ Anisocytosis 2+ Tear Drop Cells RARE PT 13.9 INR 1.1 APTT 21.7 L Sodium 141 Potassium 3.8 Chloride 112 H Carbon Dioxide 24.0 Anion Gap 5 BUN 18 Creatinine 1.24 H Estim Creat Clear Calc 24.73 Est GFR (MDRD) Af Amer 53 L Est GFR (MDRD) Non-Af 44 L BUN/Creatinine Ratio 14.5 Glucose 106 Calcium 8.5 Troponin I High Sens 12 POC Glucose 105 Radiography Diagnostic Testing: Clinical Impression(s) from Imaging Studies Brain CT 01/14/24 15:05 IMPRESSION: Normal unenhanced CT scan of the brain. N.B. : The above Results were Read Back by Herbie Tolbert MD to Maikol Palmer and understanding confirmed on 01/14/2024 15:21:11 (ET). Electronically Signed: Herbie Tolbert MD at 15:22 EDT , ADDENDUM: 01/14/24 1529 IMPRESSION: Normal unenhanced CT scan of the brain. N.B. : The above Results were Read Back by Herbie Tolbert MD to Maikol Palmer and understanding confirmed on 01/14/2024 15:21:11 (ET). Electronically Signed: Herbie Tolbert MD at 15:22 EDT , Head/Neck CTA 01/14/24 15:05 IMPRESSION: 1. Mild atherosclerotic calcifications of the cavernous internal carotid arteries with mild narrowing of the right side. 2. No evidence of significant intracranial great vessel stenosis. 3. Mild atherosclerotic calcifications of the common and internal carotid arteries without significant stenosis. 4. Patent bilateral vertebral arteries with dominant right side. N.B. : The above Results were Read Back by Devaughn Ames MD to Maikol Palmer MD, and understanding confirmed on 01/14/2024 15:36:44 (ET). Electronically Signed: Devaughn Ames MD at 15:38 EDT , ADDENDUM: 01/14/24 1545 IMPRESSION: 1. Mild atherosclerotic calcifications of the cavernous internal carotid arteries with mild narrowing of the right side. 2. No evidence of significant intracranial great vessel stenosis. 3. Mild atherosclerotic calcifications of the common and internal carotid arteries without significant stenosis. 4. Patent bilateral vertebral arteries with dominant right side. N.B. : The above Results were Read Back by Devaughn Ames MD to Maikol Palmer MD, and understanding confirmed on 01/14/2024 15:36:44 (ET). Electronically Signed: Devaughn Ames MD at 15:38 EDT , Chest X-Ray 01/14/24 15:35 IMPRESSION: No radiographic evidence of acute cardiopulmonary disease. Electronically Signed: Devaughn Ames MD at 15:47 EDT , Discharge Plan Triage Chief Complaint: Stroke Alert ED Provider: Maikol Palmer Dx/Rx/DC Orders Clinical Impression: Brain TIA Prescriptions: No Action lisinopril 10 MG tablet 10 mg PO DAILY levothyroxine 75 MCG tablet 75 mcg PO DAILY sertraline 50 MG tablet 50 mg PO DAILY levothyroxine 50 mcg tablet 50 mcg PO DAILY rivastigmine tartrate 3 mg capsule 3 mg PO BID Primary Care Provider: Sayda Peace Referrals: Sayda Peace MD [Primary Care Provider] - Print Language: Brazilian
--- NOTE | 2024-01-14 15:42 | CHAPLAIN ---
Type of Pastoral Visit ___ Initial Visit ___ Follow-up Visit ___ On-call Visit ___ General Patient Visit ___ Spiritual Assessment ___ Family Conference ___ Bereavement _x__ Rapid Response ___ Code Blue ___ Other (describe below) Pastoral Care Referral From ___ Patient ___ Family ___ Nurse ___ Physician ___ Oracle Sql Developer ___ Pipe Coverer Helper ___ Other (describe below) Sacrament/Intervention ___ Active listening ___ Anointing ___ Scientologist ___ Bereavement ___ Communion ___ Camille exploration ___ ___ Life review ___ Prayer ___ Reconciliation ___ Sacrament of Sick _x__ Supportive presence ___ Wedding ___ Other (describe below) Pastoral Comments responded to stroke alert and patient was in CT; granddaughter was in the room and denied any need for support at this time
[2024-01-14] MEDS: Aspirin 325 MG Tablet PO (15:51)
[2024-01-14 15:54] LABS: Absolute Lymphocyte Count 0.84 X10^3/uL (0.83-4.51); Absolute Neutrophil Count 7.5 X10^3/uL (2.0-7.7); Basophil# 0.03 X10^3/uL; Basophil% 0.3 % (0-1); Eosinophil# 0.08 X10^3/uL; Eosinophils% 0.9 % (0-5); Hematocrit 29.4 % (37-47); Hemoglobin 8.3 g/dL (12.0-15.0); Lymphocyte # 0.84 X10^3/ul (0.83-4.51); Lymphocyte % 9.2 % (19-41); Mean Corp Hgb Conc 28.2 g/dL (32-36); Mean Corpuscular Hgb 20.6 pg (27.0-32.0); Mean Corpuscular Volume 73.1 fL (81-99); Monocyte# 0.67 X10^3/uL; Monocyte% 7.3 % (0-10); NRBC Flagged by Analyzer 0 % (0-5); Neutrophil # 7.48 X10^3/uL (2.7-7.7); Neutrophil % 81.9 % (47-70); POSITIVE MORPHOLOGY YES; Platelet Count 133 K/mm3 (150-450); RBC Distribution Width CV 22.9 % (11.6-14.6); Red Blood Count 4.02 M/mm3 (4.2-5.4); White Blood Count 9.1 K/mm3 (4.4-11.0)
[2024-01-14 16:01] LABS: International Normalized Ratio 1.1; Prothrombin Time (Protime)PT. 13.9 SECONDS (11.7-14.9)
[2024-01-14 16:02] LABS: Partial Thromboplast Time 21.7 Seconds (24.1-36.2)
[2024-01-14 16:13] LABS: Anion Gap 5 (5-15); BUN 18 mg/dL (7-18); BUN/Creat Ratio 14.5 RATIO (10-20); Calcium,Total 8.5 mg/dL (8.5-10.1); Chloride 112 mmol/L (98-107); Creatinine, Serum 1.24 mg/dL (0.55-1.02); EST Glomerular Filtration Rate 44 mL/min (>60); Est Glom Filt Rate - Afr Amer 53 mL/min (>60); Estimated Creatinine Clearance 24.73 ml/min; Glucose 106 mg/dL (74-106); Potassium 3.8 mmol/L (3.5-5.1); Sodium Level 141 mmol/L (136-145); Troponin-I HS 12 pg/mL (3.0-54.0)
[2024-01-14 16:14] LABS: Differential Indicated SCAN CRITERIA MET
[2024-01-14 16:31] LABS: Anisocytosis 2+; Hypochromasia 1+; Platelet Estimate SLT DEC (ADEQ); Tear Drop Cell RARE
--- OUTSIDE RECORDS SUMMARY | 2024-01-14 17:01 | XMS RPT_ITS | CCD ---
Author Organization [facility] Care Team Providers Care [employer] Technician Name Role Phone Nata WILKS, Ming Primary Care Provider Nata WILKS, Ming Primary Care Provider [phone] Cary WILKS, Stu Unavailable [phone] Nata WILKS, Ming Primary Care Provider STU SCHAEFFER Referring Unavailable GANTA, MING Primary Care Unavailable SAMIAAMSTU MONTANO Attending Unavailable ZORAN DUMONT Referring Unavailable GANTA, MING Primary Care Unavailable GANTA, MING Primary Care Unavailable ABRAMSTU MONTANO Referring Unavailable ABRAMOVICH, STU Referring Unavailable GANTA, MING Primary Care Unavailable OLDER, SHONDA Referring Unavailable GANTA, MING Primary Care Unavailable OLDER, SHONDA Attending Unavailable GANTA, MING Primary Care Unavailable OLDER, SHONDA Referring Unavailable GANTA, MING Primary Care Unavailable SELF Referring Unavailable OLDER, SHONDA Attending Unavailable GANTA, MING Primary Care Unavailable OLDER, SHONDA Referring Unavailable GANTA, MING Primary Care Unavailable ZORAN DUMONT L Attending Unavailable GANTA, MING Primary Care Unavailable TIM, ZORAN L Referring Unavailable GANTA, MING Primary Care Unavailable GANTA, MING Primary Care Unavailable GANTA, MING Referring Unavailable GANTA, MING Primary Care Unavailable ABRAMOVICTSU Renteria Referring Unavailable ABRAMOVICH, STU Referring Unavailable GANTA, MING Primary Care Unavailable ABRAMOVICH, STU Referring Unavailable GANTA, MING Primary Care Unavailable SELF Referring Unavailable OLDER, SHONDA Attending Unavailable GANTA, MING Primary Care Unavailable Allergies Allergy Classification Reported Allergen(s) Allergy Type Date of Onset Reaction(s) Facility Amoxicillin / Clavulanate (1 source) Amoxicillin / Clavulanate Drug Allergy 11-11-2012 Diarrhea [facility] Work Phone: donepezil (1 source) donepezil Drug Allergy 04-26-2023 Itching [facility] Quinolones (antibiotic) (2 sources) Ciprofloxacin Drug Allergy 07-18-2010 Rash [facility] (20 sources) Amoxicillin / Clavulanate; Translations: [AMOXICILLIN-POT CLAVULANATE] Drug Allergy 11-11-2012 Diarrhea [facility] Work Phone: (20 sources) Ciprofloxacin; Translations: [CIPROFLOXACIN] Drug Allergy 07-18-2010 Rash [facility] (20 sources) levoFLOXacin; Translations: [LEVOFLOXACIN] Drug Allergy 04-24-2013 Rash [facility] (13 sources) donepezil; Translations: [DONEPEZIL] Drug Allergy 04-26-2023 Itching [facility] Work Phone: Medications Current Medications Medication Drug Class(es) Dates Sig (Normalized) Sig (Original) allopurinol 100 mg oral tablet (20 sources) Xanthine Oxidase Inhibitor Start: 07-07-2021 End: 01-04-2023 take 1 tablet by mouth once daily allopurinol (ZYLOPRIM) 100 mg tablet Take 1 tablet by mouth once daily. For gout. 90 tablet 3 01/04/2023 Active Start: 03-29-2020 End: 07-05-2021 take 1 tablet by mouth once daily allopurinol (ZYLOPRIM) 100 mg tablet Indications: Gout with manifestations Take 1 tablet by mouth once daily. For gout. 90 tablet 3 03/29/2020 07/05/2021 Discontinued Comment on above: Take 1 tablet by afsaneh th once daily. For gout. aspirin 81 mg delayed release oral tablet (20 sources) Platelet Aggregation Inhibitor, Nonsteroidal Anti-inflammatory Drug Start: 011 take 1 tablet by mouth once daily aspirin, enteric coated (ASPIRIN, ENTERIC COATED) 81 mg EC tablet Take 1 tablet by mouth once daily. 0 07/18/2010 Active Comment on above: Take 1 tablet by afsaneh th once daily. Blood Pressure Monitor (BLOOD PRESSURE KIT) (20 sources) Start: 023 Blood Pressure Monitor (BLOOD PRESSURE KIT) Indications: Essential hypertension, benign 1 Each once daily. 1 Kit 1 06/05/2022 Active Comment on above: 1 Each once daily. cephalexin 250 mg oral capsule (1 source) Cephalosporin Antibacterial Start: End: take 1 capsule by mouth twice daily cephALEXin (KEFLEX) 250 mg capsule Indications: Urinary tract infection without hematuria, site unspecified Take 1 capsule by mouth twice daily for 7 days. 14 capsule 0 11/17/2022 11/24/2022 Active Comment on above: Take 1 capsule by mo [facility] twice daily for 7 days. doxycycline hyclate 100 mg oral tablet (3 sources) Tetracycline-class Drug Start: End: take 1 tablet by mouth twice daily doxycycline (VIBRA-TABS) 100 mg tablet Indications: Skin infection Take 1 tablet by mouth twice daily for 10 days. 20 tablet 0 11/26/2021 12/06/2021 Active Comment on above: Take 1 tablet by afsaneh twice daily for 10 days. ferrous sulfate 325 mg oral tablet (20 sources) Start: End: take 1 tablet by mouth once daily at breakfast ferrous sulfate 325 mg (65 mg iron) tablet Indications: Microcytic anemia , History of recent blood transfusion Take 1 tablet by mouth daily with breakfast. 90 tablet 3 11/13/2022 02/11/2023 Active Comment on above: Take 1 tablet by afsaneh daily with breakfast. levothyroxine sodium 0.05 mg oral tablet (20 sources) l-Thyroxine Start: take 1 tablet by mouth once daily for thyroid dysfunction levothyroxine (LEVOXYL) 50 mcg tablet Take 1 tablet by mouth once daily. Take on empty stomach. For Thyroid 30 tablet 5 08/17/2023 Active Start: 12-14-2022 End: 08-13-2023 take 1 tablet by mouth once daily for thyroid dysfunction levothyroxine (LEVOXYL) 50 mcg tablet Take 1 tablet by mouth once daily. Take on empty stomach. For Thyroid 30 tablet 5 04/26/2023 08/13/2023 Discontinued Start: 05-29-2022 take 1 tablet by afsaneh once daily for thyroid dysfunction levothyroxine (LEVOXYL) 50 mcg tablet Take 1 tablet by mouth once daily. Take on empty stomach. For Thyroid 30 tablet 5 05/29/2022 Active Start: 01-28-2022 End: 05-29-2022 take 1 tablet by mouth once daily for thyroid dysfunction levothyroxine (LEVOXYL) 25 mcg tablet Take 1 tablet by mouth once daily. Take on empty stomach. For Thyroid 30 tablet 5 01/28/2022 05/29/2022 Discontinued Start: 03-29-2020 End: 01-28-2022 take 1 tablet by mouth once daily levothyroxine (SYNTH ROID) 75 mcg tablet TAKE ONE TABLET BY MOUTH ONCE DAILY ON EMPTY STOMACH FOR THYRIOD 90 tablet 3 03/29/2020 01/28/2022 Discontinued (Discontinued by Patient) Comment on above: TAKE ONE TABLET BY M OUTH ONCE DAILY ON EMPTY STOMACH FOR THYRIOD Take 1 tablet by afsaneh th once daily. Take on empty stomach. For Thyroid loperamide hydrochloride 2 mg oral tablet (20 sources) Opioid Agonist Start: 12-28-2019 loperamide HCl (IMODIUM) 2 mg tab Take 2 each morning. May take another 2 later in the day, as needed. 96 tablet 3 12/28/2019 Active Comment on above: Take 2 each morning. May take another 2 later in the day, as needed. MEDICAL SUPPLY (20 sources) Start: 06-05-2022 MEDICAL SUPPLY Indications: Essential hypertension, benign Blood pressure monitor weight of pt 103# 1 Each 06/05/2022 Active Start: 06-05-2022 MEDICAL SUPPLY Indications: Essential hypertension, benign Blood pressure monitor weight of pt 103# 1 Each 0 06/05/2022 Active Start: 05-29-2022 End: 06-05-2022 MEDICAL SUPPLY Indications: Essential hypertension, benign Blood pressure unit 1 Each 0 05/29/2022 06/05/2022 Discontinued Start: 05-29-2022 MEDICAL SUPPLY Indications: Essential hypertension, benign Blood pressure unit 1 Each 0 05/29/2022 Active Comment on above: Blood pressure unit Blood pressure monit or weight of pt 103# Multivitamins-Mineral s-Lutein (CENTRUM SILVER) ORAL Tab (20 sources) Start: 7 take 1 tablet by mouth once daily Multivitamins-Mineral s-Lutein (CENTRUM SILVER) ORAL Tab Take one(1) tablet daily. 0 09/27/2006 Active Comment on above: Take one(1) tablet d aily. 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 60 capsule 11 02/05/2021 01/23/2022 Discontinued Comment on above: Take 1 capsule by mo uth twice daily with meals. take 1 capsule by mo uth twice daily with meals Take 1 capsule by mo uth two times a day with meals. sertraline 50 mg oral tablet (20 sources) Serotonin Reuptake Inhibitor Start: 07-09-2023 End: 10-04-2023 take 1 tablet by mouth once daily sertraline (ZOLOFT) 50 mg tablet Indications: Major depressive disorder with single episode, in full remission (HCC) , Chronic anxiety Take 1 tablet by mouth once daily. 90 tablet 1 10/04/2023 Active Start: 04-26-2023 End: 06-09-2023 take 1 tablet by mouth once daily sertraline (ZOLOFT) 50 mg tablet Indications: Major depressive disorder with single episode, in full remission (HCC) , Chronic anxiety Take 1 tablet by mouth once daily 30 tablet 0 06/09/2023 Active Start: 08-21-2022 End: 04-26-2023 take 1 tablet by mouth once daily sertraline (ZOLOFT) 25 mg tablet Indications: Major depressive disorder with single episode, in full remission (HCC) , Chronic anxiety Take 1 tablet by mouth once daily. 90 tablet 3 08/21/2022 04/26/2023 Discontinued Start: 05-29-2022 End: 08-21-2022 take 0.5 tablet by mouth once daily sertraline (ZOLOFT) 50 mg tablet Indications: Major depressive disorder with single episode, in full remission (HCC) , Chronic anxiety Take 0.5 tablets by mouth once daily. 90 tablet 3 05/29/2022 08/21/2022 Discontinued Start: 01-20-2021 End: 05-29-2022 take 1 tablet by mouth once daily sertraline (ZOLOFT) 50 mg tablet Indications: Major depressive disorder with single episode, in full remission (HCC) , Chronic anxiety Take 1 tablet by mouth once daily. 90 tablet 3 01/20/2021 01/23/2022 Discontinued Comment on above: Take 1 tablet by afsaneh th once daily. Take 0.5 tablets by mouth once daily. Take 1 tablet by afsaneh th once daily sulfamethoxazole 800 mg / trimethoprim 160 mg oral tablet (3 sources) Dihydrofolate Reductase Inhibitor Antibacterial, Sulfonamide Antimicrobial Start: End: take 1 tablet by mouth twice daily sulfamethoxazo le-trimethopri m (BACTRIM DS) 800-160 mg per tablet Take 1 tablet by mouth two times a day for 7 days. 14 tablet 0 09/24/2023 10/01/2023 Active Start: 08-18-2023 End: 06-05-2024 take 1 tablet by mouth once daily sulfamethoxazole-trimethoprim (BACTRIM) 400-80 mg per tablet Take 1 tablet by mouth once daily for 7 days. 7 tablet 0 08/18/2023 08/25/2023 Active Start: 04-29-2023 End: 05-04-2023 take 1 tablet by mouth twice daily sulfamethoxazole-trimethoprim (BACTRIM) 400-80 mg per tablet Take 1 tablet by mouth two times a day for 5 days. 10 tablet 0 04/29/2023 05/04/2023 Active Comment on above: Take 1 tablet by [facility] two times a day for 5 days. Completed/Discontinued Medications Medication Drug Class(es) Dates Sig (Normalized) Sig (Original) oxyquinoline sulfate 0.82989 mg/mg / sodium dodecyl sulfate 0.0001 mg/mg vaginal gel (20 sources) Start: 08-26-2020 End: 11-13-2022 Oxyquinoline-Na Lauryl Sulfate (TRIMO-FRANCISCO JELLY) 0.025-0.01 % gel Use 1 application vaginally at bedtime as needed. 1 Tube 5 08/26/2020 11/13/2022 Discontinued Comment on above: Use 1 application va ginally at bedtime as needed. lisinopril 10 mg oral tablet (20 sources) Angiotensin Converting Enzyme Inhibitor Start: 05-07-2021 End: 05-29-2022 take 1 tablet by mouth once daily lisinopril (ZESTRIL, PRINIVIL) 10 mg tablet Take 1 tablet by mouth once daily. 90 tablet 3 05/07/2021 05/29/2022 Discontinued Comment on above: Take 1 tablet by [facility] once daily. magnesium oxide 200 mg oral tablet (20 sources) Start: 12-21-2019 End: 11-13-2022 take 1 tablet by mouth once daily magnesium oxide 200 mg magnesium tab Take 1 tablet by mouth once daily. 30 tablet 11 12/21/2019 11/13/2022 Discontinued Comment on above: Take 1 tablet by afsaneh once daily. omeprazole 20 mg delayed release oral capsule (20 sources) Proton Pump Inhibitor Start: 03-29-2020 End: 11-13-2022 take 1 capsule by mouth once daily before breakfast omeprazole (PRILOSEC) 20 mg capsule Take 1 capsule by mouth daily before breakfast. 1/2 hr before meal. 30 capsule 3 03/29/2020 11/13/2022 Discontinued Comment on above: Take 1 capsule by mo uth daily before breakfast. 1/2 hr before meal. microencapsulated potassium chloride 20 meq extended release oral tablet (20 sources) Start: 03-05-2021 End: 08-18-2023 take 1 tablet by mouth once daily potassium chloride ER (K-DUR, KLOR-CON) 20 mEq tablet Indications: Hypokalemia Take 1 tablet by mouth once daily. 30 tablet 5 03/05/2021 10/20/2021 Discontinued Comment on above: Take 1 tablet by afsaneh th once daily. Take 1 tablet by afsaneh th once daily Problems Active Problems Problem Classification Problem Date Documented Da te Episodic/Chronic Anxiety disorders (20 sources) Chronic anxiety; Translations: [Anxiety disorder, unspecified] Onset: 10-16-2019 10-16-2019 Chronic Aortic; peripheral; and visceral artery aneurysms (20 sources) Abdominal aortic aneurysm without rupture; Translations: [Abdominal aortic aneurysm, without rupture] Onset: 07-03-2019 07-03-2019 Chronic Chronic kidney disease (20 sources) Chronic kidney disease stage 3A ; Translations: [Stage 3a chronic kidney disease] Onset: 05-17-2018 06-04-2021 Chronic Chronic kidney disease (1 source) Chronic kidney disease; Translations: [Stage 3a chronic kidney disease (HCC)] Onset: 06-04-2021 Deficiency and other anemia (1 source) Iron deficiency anemia due to blood loss; Translations: [Iron deficiency anemia secondary to blood loss (chronic)] 11-10-2022 Chronic Deficiency and other anemia (6 sources) Anemia; Translations: [Anemia, unspecified] Episodic Deficiency and other anemia (1 source) Microcytic anemia; Translations: [Iron deficiency anemia, unspecified] 11-13-2022 Episodic Deficiency and other anemia (1 source) Anemia, unspecified; Translations: [Anemia, unspecified type] Onset: 12-17-2023 Episodic Delirium, dementia, and amnestic and other cognitive disorders (20 sources) Primary degenerative dementia of the Alzheimer type, senile onset, uncomplicated; Translations: [Alzheimer's disease with late onset] Onset: 12-21-2019 12-21-2019 Chronic Diabetes mellitus without complication (3 sources) Increased glucose level; Translations: [Other abnormal glucose] Episodic Disorders of lipid metabolism (20 sources) Hyperlipidemia; Translations: [Hyperlipidemia, unspecified] Onset: 03-20-2016 03-20-2016 Chronic Essential hypertension (20 sources) Benign essential hypertension; Translations: [Essential (primary) hypertension] 06-26-2005 Chronic Genitourinary symptoms and ill-defined conditions (20 sources) Female stress incontinence; Translations: [Stress incontinence (female) (male)] Onset: 07-31-2009 07-31-2009 Chronic Gout and other crystal arthropathies (20 sources) Gout; Translations: [Gout, unspecified] Onset: 03-20-2016 Chronic Hypertension with complications and secondary hypertension (20 sources) Hypertensive renal disease; Translations: [Hypertensive chronic kidney disease with stage 1 through stage 4 chronic kidney disease, or unspecified chronic kidney disease] Onset: 06-04-2021 06-04-2021 Chronic Immunizations and screening for infectious disease (1 source) Needs influenza immunization; Translations: [Encounter for immunization] 01-04-2023 Episodic Mood disorders (20 sources) Single episode of major depression in full remission; Translations: [Major depressive disorder, single episode, in full remission] Onset: 03-19-2015 Resolved: 10-12-2019 07-18-2018 Chronic Nutritional deficiencies (1 source) Vitamin D deficiency; Translations: [Vitamin D deficiency, unspecified] Chronic Other gastrointestinal disorders (2 sources) Diarrhea; Translations: [Diarrhea, unspecified] 04-26-2023 Episodic Other injuries and conditions due to external causes (1 source) Injury of right forearm; Translations: [Unspecified injury of right forearm, initial encounter] 05-16-2021 Episodic Other nervous system disorders (1 source) Abnormal gait; Translations: [Unsteadiness on feet] 12-10-2023 Episodic Other nervous system disorders (1 source) Finding of hand region; Translations: [Tremor, unspecified] 12-10-2023 Episodic Other screening for suspected conditions (not mental disorders or infectious disease) (2 sources) Patient encounter status; Translations: [Encounter for screening for diabetes mellitus] Episodic Other upper respiratory disease (20 sources) Vasomotor rhinitis; Translations: [Vasomotor rhinitis] Onset: 03-29-2020 03-29-2020 Chronic Prolapse of female genital organs (20 sources) Third degree uterine prolapse; Translations: [Complete uterovaginal prolapse] Onset: 07-31-2009 Resolved: 07-31-2009 07-31-2009 Chronic Rehabilitation care; fitting of prostheses; and adjustment of devices (2 sources) Patient encounter status; Translations: [Encounter for fitting and adjustment of other specified devices] Chronic Residual codes; unclassified (1 source) H/O: blood transfusion; Translations: [Personal history of other medical treatment] 11-13-2022 Episodic Residual codes; unclassified (1 source) Acute confusion; Translations: [Disorientation, unspecified] 11-13-2022 Episodic Residual codes; unclassified (1 source) Memory impairment; Translations: [Other amnesia] 04-26-2023 Episodic Skin and subcutaneous tissue infections (1 source) Infection of skin; Translations: [Local infection of the skin and subcutaneous tissue, unspecified] Episodic Thyroid disorders (20 sources) Hypothyroidism; Translations: [Hypothyroidism, unspecified] Onset: 10-07-2006 03-19-2015 Chronic Past or Other Problems Problem Classification Problem Date Documented Da te Episodic/Chronic Deficiency and other anemia (20 sources) Iron deficiency anemia; Translations: [Iron deficiency anemia, unspecified] Onset: 01-25-2023 01-04-2023 Episodic Deficiency and other anemia (1 source) Iron deficiency anemia, unspecified; Translations: [Iron deficiency anemia, unspecified iron deficiency anemia type] Onset: 01-25-2023 Episodic Deficiency and other anemia (1 source) Other iron deficiency anemias; Translations: [Other iron deficiency anemia] Onset: 01-25-2023 Episodic Fluid and electrolyte disorders (20 sources) Hypokalemia; Translations: [Hypokalemia] Onset: 12-21-2019 12-21-2019 Episodic Genitourinary symptoms and ill-defined conditions (5 sources) History of urinary tract infection; Translations: [Personal history of urinary (tract) infections] Onset: 08-13-2023 08-13-2023 Episodic Hemorrhoids (11 sources) Internal hemorrhoids; Translations: [Other hemorrhoids] Onset: 04-07-2012 Resolved: 03-01-2014 03-01-2014 Episodic Nutritional deficiencies (20 sources) Magnesium deficiency; Translations: [Magnesium deficiency] Onset: 12-21-2019 12-21-2019 Episodic Other and unspecified benign neoplasm (20 sources) Benign neoplasm of rectum and anal canal; Translations: [Benign neoplasm of rectum] Onset: 04-07-2012 04-07-2012 Episodic Other circulatory disease (20 sources) Carotid bruit; Translations: [Other specified symptoms and signs involving the circulatory and respiratory systems] Onset: 04-14-2017 04-14-2017 Episodic Other circulatory disease (11 sources) Cardiovascular finding; Translations: [Other specified symptoms and signs involving the circulatory and respiratory systems] Resolved: 12-25-2015 12-25-2015 Episodic Other gastrointestinal disorders (1 source) Diarrhea, unspecified; Translations: [Diarrhea, unspecified type] Onset: 08-13-2023 Episodic Other nutritional; endocrine; and metabolic disorders (20 sources) Recent weight loss; Translations: [Abnormal weight loss] Onset: 07-18-2018 10-16-2019 Episodic Residual codes; unclassified (1 source) Other amnesia; Translations: [Memory change] Onset: 04-26-2023 Episodic Urinary tract infections (3 sources) Urinary tract infectious disease; Translations: [Urinary tract infection, site not specified] Onset: 09-21-2023 11-17-2022 Episodic Results Test Name Value Interpretation Reference Range Facility [facility] 12-24-2023 [facility] Telephone (INT[facility]) AINSLEY SORENSON ([id number]) 1935 F Date Time Provider Department 12/24/23 [facility] During your visit today, we recorded the following information about you: Isatu Moreno LPN 12/24/2023 3:59 PM Signed ----- Message from Ming Mcknight MD sent at 12/24/2023 2:33 PM EDT ----- Hb is a little improved from the last time Ming Vargas MD, Mary, LPN 12/24/2023 3:59 PM Signed Updated via [employer] Isatu Moreno LPN December 24, 2023 3:59 PM Allergies As of Date: 12/24/2023 Noted Allergy Reaction ARICEPT (DONEPEZIL) 04/26/2023 9 - Itching AUGMENTIN (AMOXICILLIN-POT CLAVUL*11/11/2012 6 - Diarrhea CIPROFLOXACIN 07/18/2010 2 - Rash LEVAQUIN (LEVOFLOXACIN) 04/24/2013 2 - Rash Comments: itching rash Date Reviewed: 12/10/2023 Reviewed by: Shonda Tyler APRN.CLINICAL AUDIOLOGIST - Fully Assessed Reason for Visit: Results [95] Prescriptions as of 12/24/2023 - sertraline (ZOLOFT) 50 mg tablet Take 1 tablet by mouth once daily. - levothyroxine (LEVOXYL) 50 mcg tablet Take 1 tablet by mouth once daily. Take on empty stomach. For Thyroid - rivastigmine tartrate (EXELON) 3 mg capsule Take 1 capsule by mouth two times a day with meals. - allopurinol (ZYLOPRIM) 100 mg tablet Take 1 tablet by mouth once daily. For gout. - MEDICAL SUPPLY Blood pressure monitor weight of pt 103# - Blood Pressure Monitor (BLOOD PRESSURE KIT) 1 Each once daily. - loperamide HCl (IMODIUM) 2 mg tab Take 2 each morning. May take another 2 later in the day, as needed. - aspirin, enteric coated (ASPIRIN, ENTERIC COATED) 81 mg EC tablet Take 1 tablet by mouth once daily. - Multivitamins-Minerals -Lutein (CENTRUM SILVER) ORAL Tab Take one(1) tablet daily. 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] 03/20/2016 Left carotid bruit [R09.89] 04/14/2017 Stage 3a chronic kidney disease (HCC) [N18.31] 05/17/2018 Recent unexplained weight loss [R63.4] 07/18/2018 Major depressive disorder with single episode, *07/18/2018 Abdominal aortic aneurysm (AAA) without rupture*07/03/2019 Chronic anxiety [F41.9] 10/16/2019 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*12/21/2019 Magnesium deficiency [E61.2] 12/21/2019 Hypokalemia [E87.6] 12/21/2019 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] 03/29/2020 Hypertensive kidney disease with stage 3a chron*06/04/2021 Iron deficiency anemia [D50.9] 01/25/2023 Encounter Status:Closed by ISATU MORENO on 12/24/23 Normal [facility] CBC W Auto Differential pane l (Bld)on 12-17-2023 Basophils (Bld) [#/Vol] 0.04 10*3/uL Normal <0.11 [facility] Comment on above: Order Comment: Speci men Type: BLOOD SPECIMENOrdering Facility: [facility] Address: [address] [place] [address] Performed By: #### 5 7021-8 ####[facility] LABIA [id number] [place] [address] [place] Basophils/100 WBC (Bld) 0.3 % Normal [facility] Comment on above: Order Comment: Speci men Type: BLOOD SPECIMENOrdering Facility: [facility] Address: [address] [place] [address] Performed By: #### 5 7021-8 ####[facility] LABIA [id number] [place] [address] [place] Differential cell count method Nom (Bld) Auto Normal [facility] Comment on above: Order Comment: Speci men Type: BLOOD SPECIMENOrdering Facility: [facility] Address: [address] [place] [address] Performed By: #### 5 7021-8 ####[facility] LABCLIA [id number] [place] [address] [place] Eosinophils (Bld) [#/Vol] 0.07 10*3/uL Normal <0.46 [facility] Comment on above: Order Comment: Speci men Type: BLOOD SPECIMENOrdering Facility: [facility] Address: [address] [place] [address] Performed By: #### 5 7021-8 ####[facility] LABCLIA [id number] [place] [address] [place] Eosinophils/100 WBC (Bld) 0.5 % Normal [facility] Comment on above: Order Comment: Speci men Type: BLOOD SPECIMENOrdering Facility: [facility] Address: [address] [place] [address] Performed By: #### 5 7021-8 ####[facility] LABIA [id number] [place] [address] [place] Erythrocyte distribution width (RBC) [Ratio] 22.7 % High 11.5-15.0 [facility] Comment on above: Order Comment: Speci men Type: BLOOD SPECIMENOrdering Facility: [facility] Address: [address] [place] [address] Performed By: #### 5 7021-8 ####[facility] LABIA [id number] [place] [address] [place] Hematocrit (Bld) [Volume fraction] 31.5 % Low 36.0-46.0 [facility] Comment on above: Order Comment: Speci men Type: BLOOD SPECIMENOrdering Facility: [facility] Address: [address] [place] [address] Performed By: #### 5 7021-8 ####[facility] LABCLIA [id number] [place] [address] [place] Hemoglobin (Bld) [Mass/Vol] 8.8 g/dL Low 11.5-15.5 [facility] Comment on above: Order Comment: Speci men Type: BLOOD SPECIMENOrdering Facility: [facility] Address: [address] [place] [address] Performed By: #### 5 7021-8 ####[facility] LABCLIA [id number] [place] [address] [place] Immature granulocytes (Bld) [#/Vol] 0.10 10*3/uL High <0.10 [facility] Comment on above: Order Comment: Speci men Type: BLOOD SPECIMENOrdering Facility: [facility] Address: [address] [place] [address] Performed By: #### 5 7021-8 ####[facility] LABCLIA [id number] [place] [address] [place] Immature granulocytes/100 WBC (Bld) 0.8 % Normal [facility] Comment on above: Order Comment: Speci men Type: BLOOD SPECIMENOrdering Facility: [facility] Address: [address] [place] [address] Performed By: #### 5 7021-8 ####[facility] LABCLIA [id number] [place] [address] [place] Lymphocytes (Bld) [#/Vol] 1.19 10*3/uL Normal 1.00-4.00 [facility] Comment on above: Order Comment: Speci men Type: BLOOD SPECIMENOrdering Facility: [facility] Address: [address] [place] [address] Performed By: #### 5 7021-8 ####[facility] LABCLIA [id number] [place] [address] [place] Lymphocytes/100 WBC (Bld) 9.2 % Normal [facility] Comment on above: Order Comment: Speci men Type: BLOOD SPECIMENOrdering Facility: [facility] Address: [address] [place] [address] Performed By: #### 5 7021-8 ####[facility] LABIA [id number] [place] [address] [place] MCH (RBC) [Entitic mass] 20.3 pg Low 26.0-34.0 [facility] Comment on above: Order Comment: Speci men Type: BLOOD SPECIMENOrdering Facility: [facility] Address: [address] [place] [address] Performed By: #### 5 7021-8 ####[facility] LABIA [id number] [place] [address] [place] MCHC (RBC) [Mass/Vol] 27.9 g/dL Low 30.5-36.0 [facility] Comment on above: Order Comment: Speci men Type: BLOOD SPECIMENOrdering Facility: [facility] Address: [address] [place] [address] Performed By: #### 5 7021-8 ####[facility] [id number] [place] [address] [place] MCV (RBC) [Entitic vol] 72.6 fL Low 80.0-100.0 [facility] Comment on above: Order Comment: Speci men Type: BLOOD SPECIMENOrdering Facility: [facility] Address: [address] [place] [address] Performed By: #### 5 7021-8 ####[facility] [id number] [place] [address] [place] Monocytes (Bld) [#/Vol] 0.61 10*3/uL Normal <0.87 [facility] Comment on above: Order Comment: Speci men Type: BLOOD SPECIMENOrdering Facility: [facility] Address: [address] [place] [address] Performed By: #### 5 7021-8 ####[facility] [id number] [place] [address] [place] Monocytes/100 WBC (Bld) 4.7 % Normal [facility] Comment on above: Order Comment: Speci men Type: BLOOD SPECIMENOrdering Facility: [facility] Address: [address] [place] [address] Performed By: #### 5 7021-8 ####[facility] LABCLIA [id number] [place] [address] [place] Neutrophils (Bld) [#/Vol] 10.99 10*3/uL High 1.45-7.50 [facility] Comment on above: Order Comment: Speci men Type: BLOOD SPECIMENOrdering Facility: [facility] Address: [address] [place] [address] Performed By: #### 5 7021-8 ####[facility] LABCLIA [id number] [place] [address] [place] Neutrophils/100 WBC (Bld) 84.5 % Normal [facility] Comment on above: Order Comment: Speci men Type: BLOOD SPECIMENOrdering Facility: [facility] Address: [address] [place] [address] Performed By: #### 5 7021-8 ####[facility] LABCLIA [id number] [place] [address] [place] Nucleated RBC (Bld) [#/Vol] 10*3/uL Normal <0.01 [facility] Comment on above: Order Comment: Speci men Type: BLOOD SPECIMENOrdering Facility: [facility] Address: [address] [place] [address] Performed By: #### 5 7021-8 ####[facility] LABCLIA [id number] [place] [address] [place] Nucleated RBC/100 WBC (Bld) [Ratio] 0.0 /100 WBC Normal [facility] Comment on above: Order Comment: Speci men Type: BLOOD SPECIMENOrdering Facility: [facility] Address: [address] [place] [address] Performed By: #### 5 7021-8 ####[facility] LABCLIA [id number] [place] [address] [place] Platelet mean volume (Bld) [Entitic vol] Normal [facility] Comment on above: Order Comment: Speci men Type: BLOOD SPECIMENOrdering Facility: [facility] Address: [address] [place] [address] Result Comment: Unab le to Report. Performed By: #### 5 7021-8 ####[facility] LABCLIA [id number] [place] [address] [place] Platelets (Bld) [#/Vol] 214 10*3/uL Normal 150-400 [facility] Comment on above: Order Comment: Speci men Type: BLOOD SPECIMENOrdering Facility: [facility] Address: [address] [place] [address] Performed By: #### 5 7021-8 ####[facility] LABIA [id number] [place] [address] [place] RBC (Bld) [#/Vol] 4.34 10*6/uL Normal 3.90-5.20 [facility] Comment on above: Order Comment: Speci men Type: BLOOD SPECIMENOrdering Facility: [facility] Address: [address] [place] [address] Performed By: #### 5 7021-8 ####[facility] LABIA [id number] [place] [address] [place] WBC (Bld) [#/Vol] 13.00 10*3/uL High 3.70-11.00 [facility] Comment on above: Order Comment: Speci men Type: BLOOD SPECIMENOrdering Facility: [facility] Address: [address] [place] [address] Performed By: #### 5 7021-8 ####[facility] LABCLIA [id number] [place] [address], [place] [address] [place] [facility] Angelo 12-14-2023 CNPN Telephone (INTMWS) AINSLEY SORENSON ([id number]) 1935 F Date Time Provider Department 12/14/23 MING MCKNIGHT INTMWS During your visit today, we recorded the following information about you: Johanna Gamez RN 12/14/2023 9:35 AM Signed Patient's Daughter calls and states that they had taken patient to [facility] yesterday. Patient's Hgb was 6.8 when patient had gone to hospital. Patient was transfused 1 unit of packed RBCs. Per daughter patient's Hgb was then 7.8. Family and patient had declined further workup for patient. Patient was instructed to have Hgb rechecked in a couple of day. Daughter states that they can have this done on . Daughter asking for order to be placed. KEYONNA Hernandez Chitra, MD 12/14/2023 1:12 PM Signed I have ordered the cbc. She will need to have a follow up. RegardsMing MD, Rachel L, MA 12/14/2023 1:34 PM Signed Jillian notified and verbalized understanding. Zoran Gamble MA Allergies As of Date: 12/14/2023 Noted Allergy Reaction ARICEPT (DONEPEZIL) 04/26/2023 9 - Itching AUGMENTIN (AMOXICILLIN-POT CLAVUL*11/11/2012 6 - Diarrhea CIPROFLOXACIN 07/18/2010 2 - Rash LEVAQUIN (LEVOFLOXACIN) 04/24/2013 2 - Rash Comments: itching rash Date Reviewed: 12/10/2023 Reviewed by: Shonda Tyler APRN.CLINICAL AUDIOLOGIST - Fully Assessed Reason for Visit: Patient Update [1234] Primary Visit Diagnosis:Anemia, unspecified type [D64.9] Order(s):COMPLETE BLOOD COUNT AND DIFFERENTIAL [SQCBCDIF] Order #: [id number] FUTURE Prescriptions as of 12/14/2023 - sertraline (ZOLOFT) 50 mg tablet Take 1 tablet by mouth once daily. - levothyroxine (LEVOXYL) 50 mcg tablet Take 1 tablet by mouth once daily. Take on empty stomach. For Thyroid - rivastigmine tartrate (EXELON) 3 mg capsule Take 1 capsule by mouth two times a day with meals. - allopurinol (ZYLOPRIM) 100 mg tablet Take 1 tablet by mouth once daily. For gout. - MEDICAL SUPPLY Blood pressure monitor weight of pt 103# - Blood Pressure Monitor (BLOOD PRESSURE KIT) 1 Each once daily. - loperamide HCl (IMODIUM) 2 mg tab Take 2 each morning. May take another 2 later in the day, as needed. - aspirin, enteric coated (ASPIRIN, ENTERIC COATED) 81 mg EC tablet Take 1 tablet by mouth once daily. - Multivitamins-Minerals -Lutein (CENTRUM SILVER) ORAL Tab Take one(1) tablet daily. 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] 03/20/2016 Left carotid bruit [R09.89] 04/14/2017 Stage 3a chronic kidney disease (HCC) [N18.31] 05/17/2018 Recent unexplained weight loss [R63.4] 07/18/2018 Major depressive disorder with single episode, *07/18/2018 Abdominal aortic aneurysm (AAA) without rupture*07/03/2019 Chronic anxiety [F41.9] 10/16/2019 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 Any active bleeding? Dark sticky stools? Shortness of breath? Lethargy? Chest pain? Palpitations? If symptomatic, she needs to go to ER. Thank you DARI Zhong Beth, LPN 12/13/2023 3:33 PM Signed Phoned Jillian patient daughter who said she lives in [place]. Went over results notes from Shonda Tyler JIG FITTER, she said she does not see mother stools so she does not know, she said she sleeps a lot but thought it is medications. She said she just got back home from [place], she said so I need to get back in my car and come back to [place] and take her to the ER. Asked if she was her POA for healthcare and she said no, my niece is. So she is calling the niece to tell her she needs to go to the ER for possible blood transfusions. Shonda Tyler APRN.CNP 12/13/2023 4:12 PM Signed She only needs to go to ER if actively bleeding or symptomatic. If not we can look into doing outpt transfusion if needed and as an outpt identify a cause. Thank you Shonda Tyler APRN.CLINICAL AUDIOLOGIST KelsyDeeptiGRACE 12/13/2023 4:28 PM Signed Daughter notified, was already on way up from [place] and feels she will just plan on going to ER to be on the safe side. Allergies As of Date: 12/13/2023 Noted Allergy Reaction ARICEPT (DONEPEZIL) 04/26/2023 9 - Itching AUGMENTIN (AMOXICILLIN-POT CLAVUL*11/11/2012 6 - Diarrhea CIPROFLOXACIN 07/18/2010 2 - Rash LEVAQUIN (LEVOFLOXACIN) 04/24/2013 2 - Rash Comments: itching rash Date Reviewed: 12/10/2023 Reviewed by: Shonda Tyler APRN.CLINICAL AUDIOLOGIST - Fully Assessed Reason for Visit: Results [95] Prescriptions as of 12/14/2023 - sertraline (ZOLOFT) 50 mg tablet Take 1 tablet by mouth once daily. - levothyroxine (LEVOXYL) 50 mcg tablet Take 1 tablet by mouth once daily. Take on empty stomach. For Thyroid - rivastigmine tartrate (EXELON) 3 mg capsule Take 1 capsule by mouth two times a day with meals. - allopurinol (ZYLOPRIM) 100 mg tablet Take 1 tablet by mouth once daily. For gout. - MEDICAL SUPPLY Blood pressure monitor weight of pt 103# - Blood Pressure Monitor (BLOOD PRESSURE KIT) 1 Each once daily. - loperamide HCl (IMODIUM) 2 mg tab Take 2 each morning. May take another 2 later in the day, as needed. - aspirin, enteric coated (ASPIRIN, ENTERIC COATED) 81 mg EC tablet Take 1 tablet by mouth once daily. - Multivitamins-Minerals -Lutein (CENTRUM SILVER) ORAL Tab Take one(1) tablet daily. 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] 03/20/2016 Left carotid bruit [R09.89] 04/14/2017 Stage 3a chronic kidney disease (HCC) [N18.31] 05/17/2018 Recent unexplained weight loss [R63.4] 07/18/2018 Major depressive disorder with single episode, *07/18/2018 Abdominal aortic aneurysm (AAA) without rupture*07/03/2019 Chronic anxiety [F41.9] 10/16/2019 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*12/21/2019 Magnesium deficiency [E61.2] 12/21/2019 Hypokalemia [E87.6] 12/21/2019 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] 03/29/2020 Hypertensive kidney disease with stage 3a chron*06/04/2021 Iron deficiency anemia [D50.9] 01/25/2023 Encounter Status:Closed by DEEPTI TIERNEY on 12/13/23 Normal [facility] CBC W Auto Differential pane l (Bld)on 12-10-2023 Basophils (Bld) [#/Vol] 0.04 10*3/uL Normal <0.11 [facility] Comment on above: Order Comment: Speci men Type: BLOOD SPECIMENOrdering Facility: [facility] Address: [address] [place] [address] Performed By: #### 5 7021-8 ####[facility] LABCLIA [id number] [place] [address] [place] Basophils/100 WBC (Bld) 0.4 % Normal [facility] Comment on above: Order Comment: Speci men Type: BLOOD SPECIMENOrdering Facility: [facility] Address: [address] [place] [address] Performed By: #### 5 7021-8 ####[facility] LABCLIA [id number] [place] [address] [place] Differential cell count method Nom (Bld) Auto Normal [facility] Comment on above: Order Comment: Speci men Type: BLOOD SPECIMENOrdering Facility: [facility] Address: [address] [place] [address] Performed By: #### 5 7021-8 ####[facility] LABCLIA [id number] [place] [address] [place] Eosinophils (Bld) [#/Vol] 0.07 10*3/uL Normal <0.46 [facility] Comment on above: Order Comment: Speci men Type: BLOOD SPECIMENOrdering Facility: [facility] Address: [address] [place] [address] Performed By: #### 5 7021-8 ####[facility] LABCLIA [id number] [place] [address] [place] Eosinophils/100 WBC (Bld) 0.8 % Normal [facility] Comment on above: Order Comment: Speci men Type: BLOOD SPECIMENOrdering Facility: [facility] Address: [address] [place] [address] Performed By: #### 5 7021-8 ####[facility] LABCLIA [id number] [place] [address] [place] Erythrocyte distribution width (RBC) [Ratio] 20.1 % High 11.5-15.0 [facility] Comment on above: Order Comment: Speci men Type: BLOOD SPECIMENOrdering Facility: [facility] Address: [address] [place] [address] Performed By: #### 5 7021-8 ####[facility] LABCLIA [id number] [place] [address] [place] Hematocrit (Bld) [Volume fraction] 26.9 % Low 36.0-46.0 [facility] Comment on above: Order Comment: Speci men Type: BLOOD SPECIMENOrdering Facility: [facility] Address: [address] [place] [address] Performed By: #### 5 7021-8 ####[facility] LABCLIA [id number] [place] [address] [place] Hemoglobin (Bld) [Mass/Vol] 7.1 g/dL Low 11.5-15.5 [facility] Comment on above: Order Comment: Speci men Type: BLOOD SPECIMENOrdering Facility: [facility] Address: [address] [place] [address] Performed By: #### 5 7021-8 ####[facility] LABCLIA [id number] [place] [address] [place] Immature granulocytes (Bld) [#/Vol] 10*3/uL Normal <0.10 [facility] Comment on above: Order Comment: Speci men Type: BLOOD SPECIMENOrdering Facility: [facility] Address: [address] [place] [address] Performed By: #### 5 7021-8 ####[facility] LABCLIA [id number] [place] [address] [place] Immature granulocytes/100 WBC (Bld) 0.2 % Normal [facility] Comment on above: Order Comment: Speci men Type: BLOOD SPECIMENOrdering Facility: [facility] Address: [address] [place] [address] Performed By: #### 5 7021-8 ####[facility] LABCLIA [id number] [place] [address] [place] Lymphocytes (Bld) [#/Vol] 1.16 10*3/uL Normal 1.00-4.00 [facility] Comment on above: Order Comment: Speci men Type: BLOOD SPECIMENOrdering Facility: [facility] Address: [address] [place] [address] Performed By: #### 5 7021-8 ####[facility] LABCLIA [id number] [place] [address] [place] Lymphocytes/100 WBC (Bld) 12.8 % Normal [facility] Comment on above: Order Comment: Speci men Type: BLOOD SPECIMENOrdering Facility: [facility] Address: [address] [place] [address] Performed By: #### 5 7021-8 ####[facility] LABCLIA [id number] [place] [address] [place] MCH (RBC) [Entitic mass] 18.3 pg Low 26.0-34.0 [facility] Comment on above: Order Comment: Speci men Type: BLOOD SPECIMENOrdering Facility: [facility] Address: [address] [place] [address] Performed By: #### 5 7021-8 ####[facility] LABCLIA [id number] [place] [address] [place] MCHC (RBC) [Mass/Vol] 26.4 g/dL Low 30.5-36.0 [facility] Comment on above: Order Comment: Speci men Type: BLOOD SPECIMENOrdering Facility: [facility] Address: [address] [place] [address] Performed By: #### 5 7021-8 ####[facility] LABIA [id number] [place] [address] [place] MCV (RBC) [Entitic vol] 69.5 fL Low 80.0-100.0 [facility] Comment on above: Order Comment: Speci men Type: BLOOD SPECIMENOrdering Facility: [facility] Address: [address] [place] [address] Performed By: #### 5 7021-8 ####[facility] LABCLIA [id number] [place] [address] [place] Monocytes (Bld) [#/Vol] 0.69 10*3/uL Normal <0.87 [facility] Comment on above: Order Comment: Speci men Type: BLOOD SPECIMENOrdering Facility: [facility] Address: [address] [place] [address] Performed By: #### 5 7021-8 ####[facility] LABCLIA [id number] [place] [address] [place] Monocytes/100 WBC (Bld) 7.6 % Normal [facility] Comment on above: Order Comment: Speci men Type: BLOOD SPECIMENOrdering Facility: [facility] Address: [address] [place] [address] Performed By: #### 5 7021-8 ####[facility] LABIA [id number] [place] [address] [place] Neutrophils (Bld) [#/Vol] 7.09 10*3/uL Normal 1.45-7.50 [facility] Comment on above: Order Comment: Speci men Type: BLOOD SPECIMENOrdering Facility: [facility] [facility] Address: [address] [place] [address] Performed By: #### 5 7021-8 ####[facility] LABCLIA [id number] [place] [address] [place] Neutrophils/100 WBC (Bld) 78.2 % Normal [facility] Comment on above: Order Comment: Speci men Type: BLOOD SPECIMENOrdering Facility: [facility] Address: [address] [place] [address] Performed By: #### 5 7021-8 ####[facility] LABCLIA [id number] [place] [address] [place] Nucleated RBC (Bld) [#/Vol] 10*3/uL Normal <0.01 [facility] Comment on above: Order Comment: Speci men Type: BLOOD SPECIMENOrdering Facility: [facility] Address: [address] [place] [address] Performed By: #### 5 7021-8 ####[facility] LABCLIA [id number] [place] [address] [place] Nucleated RBC/100 WBC (Bld) [Ratio] 0.0 /100 WBC Normal [facility] Comment on above: Order Comment: Speci men Type: BLOOD SPECIMENOrdering Facility: [facility] Address: [address] [place] [address] Performed By: #### 5 7021-8 ####[facility] LABIA [id number] [place] [address] [place] Platelet mean volume (Bld) [Entitic vol] Normal [facility] Comment on above: Order Comment: Speci men Type: BLOOD SPECIMENOrdering Facility: [facility] Address: [address] [place] [address] Result Comment: Unab le to Report. Performed By: #### 5 7021-8 ####[facility] LABIA [id number] [place] [address] [place] Platelets (Bld) [#/Vol] 195 10*3/uL Normal 150-400 [facility] Comment on above: Order Comment: Speci men Type: BLOOD SPECIMENOrdering Facility: [facility] Address: [address] [place] [address] Performed By: #### 5 7021-8 ####[facility] LABIA [id number] [place] [address] [place] RBC (Bld) [#/Vol] 3.87 10*6/uL Low 3.90-5.20 [facility] Comment on above: Order Comment: Speci men Type: BLOOD SPECIMENOrdering Facility: [facility] Address: [address] [place] [address] Performed By: #### 5 7021-8 ####[facility] LABIA [id number] [place] [address] [place] WBC (Bld) [#/Vol] 9.07 10*3/uL Normal 3.70-11.00 [facility] Comment on above: Order Comment: Speci men Type: BLOOD SPECIMENOrdering Facility: [facility] Address: [address] [place] [address] Performed By: #### 5 7021-8 ####[facility] LABCLIA [id number] [id number] [id number] [facility] CNOVon 12-10-2023 CNOV Office Visit (INTMWS ) AINSLEY SORENSON ([id number]) 1935 F Date Time Provider Department 12/10/23 2:00 PM SHONDA TYLER INTMWANDA During your visit today, we recorded the following information about you: Pulse Blood pressure Weight 68/minute 128/74 47.3 kg Shonda Tyler APRN.CLINICAL AUDIOLOGIST 12/10/2023 2:57 PM Signed CC: Patient presents with: Recheck: Not as steady on feet, walking is more difficult HPI Ainsley Sorenson is a 88 year old female who presents today for routine follow up but with some concerns. Daughter has noticed patient more unsteady and some slight hand tremors. No falls or near falls. Does not use an assistive device but has small home so will hold onto things if needed to steady. Lives alone but daughter lives near her and house is one story with many changes to help prevent falls. Hypothyroidism: Reports taking medication as ordered Denies any abnormal change in weight or energy. Dementia: maybe not so much decrease in memory but daughter has noticed it can take patient a bit longer to sometimes form words in sentences. Takes exelon daily due to increase in diarrhea,. HTN w/ CKD: Ms. Sorenson indicates that she is feeling well and denies any symptoms referable to elevated blood pressure. Specifically denies headache, chest pain, palpitations, dyspnea, and peripheral edema. Is not on any antihypertensive medications. She does not check BP's generally. 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 CKD (chronic kidney disease), stage III (HCC) 05/17/2018 Diverticulosis of colon (without mention of hemorrhage) Essential hypertension, benign Gout attack 12/2014 R great toe Hyperlipidemia LDL goal <100 03/20/2016 Kidney stones Left carotid bruit 04/14/2017 Other symptoms involving cardiovascular system Uterovaginal prolapse PAST SURGICAL HISTORY Procedure Laterality Date COLONOSCOPY FLX DX W/COLLJ SPEC WHEN PFRMD 04/07/2012 Colonoscopy repeat 10 years DILATION AND CURETTAGE DXAND/THER NONOBSTETRIC Dilation AND curettage LAPAROSCOPIC TUBAL LIGATION/RING/CLIP ALLERGIES Aricept [Donepezil], Augmentin [Amoxicillin-Pot Clavulanate], Ciprofloxacin, and Levaquin [Levofloxacin] MEDICATIONS sertraline (ZOLOFT) 50 mg tablet Take 1 tablet by mouth once daily. levothyroxine (LEVOXYL) 50 mcg tablet Take 1 tablet by mouth once daily. Take on empty stomach. For Thyroid rivastigmine tartrate (EXELON) 3 mg capsule Take 1 capsule by mouth two times a day with meals. allopurinol (ZYLOPRIM) 100 mg tablet Take 1 tablet by mouth once daily. For gout. loperamide HCl (IMODIUM) 2 mg tab Take 2 each morning. May take another 2 later in the day, as needed. MEDICAL SUPPLY Blood pressure monitor weight of pt 103# Blood Pressure Monitor (BLOOD PRESSURE KIT) 1 Each once daily. aspirin, enteric coated (ASPIRIN, ENTERIC COATED) 81 mg EC tablet Take 1 tablet by mouth once daily. Multivitamins-Minerals -Lutein (CENTRUM SILVER) ORAL Tab Take one(1) tablet daily. FAMILY HISTORY Problem Relation Age of Onset other (cerebral hemorrhage) Mother Diabetes Father Stroke Father Social History Tobacco Use Smoking status: Former Current packs/day: 0.00 Average packs/day: 0.5 packs/day for 20.0 years (10.0 ttl pk-yrs) Types: Cigarettes Start date: 1972 Quit date: 1992 Years since quittin.7 Smokeless tobacco: Never Vaping Use Vaping status: Never Used Substance Use Topics Alcohol use: No Drug use: No PHYSICAL EXAM BP 128/74 (BP Site: Left Arm) Pulse 68 Wt 47.3 kg (104 lb 4.4 oz) SpO2 100% BMI 17.35 kg/m? General Appearance: well appearing, in no acute distress, alert Pysch: mood and affect broad and appropriate Eyes: conjunctiva pink and moist, no icterus, sclera white, non-injected Lungs: Lungs clear to auscultation. No wheezing, rhonchi, rales. Heart: RRR without murmur, gallop, or rubs. No ectopy Extremities: No deformities, edema, skin discoloration, clubbing or cyanosis. Good capillary refill. Musculoskeletal: No joint swelling, deformity, or tenderness Neurological: Gait slow and purposeful at first Sensation intact., Negative findings: speech normal, mental status intact, gait, including heel, toe, normal, muscle strength normal. Some difficulty with tandem walking. Health maintenance reviewed with patient: Covid-19 Vaccine( season) due on 11/21/2023 R (more content not included)... Normal [facility] Comprehensive metabolic 2000 panelon 12-10-2023 Albumin [Mass/Vol] 3.9 g/dL Normal 3.9-4.9 [facility] Comment on above: Order Comment: Chiquita thornton Type: BLOOD SPECIMENOrdering Facility: [facility] Address: [address] [place] [address] Performed By: #### 3 051-0, 3016-3, 27099-4, 7114-7 ####[facility] LABCLIA [id number] [place] [address] [place] ALP [Catalytic activity/Vol] 94 U/L Normal 34-123 [facility] Comment on above: Order Comment: Chiquita thornton Type: BLOOD SPECIMENOrdering Facility: [facility] Address: [address] [place] [address] Performed By: #### 3 051-0, 3016-3, 77745-5, 3023-7 ####[facility] LABCLIA [id number] [place] [address] [place] ALT [Catalytic activity/Vol] 7 U/L Normal 7-38 [facility] Comment on above: Order Comment: Speci men Type: BLOOD SPECIMENOrdering Facility: [facility] Address: [address] [place] [address] Performed By: #### 3 051-0, 3016-3, 46793-9, 3023-7 ####[facility] LABCLIA [id number] [place] [address] [place] Anion gap [Moles/Vol] 13 mmol/L Normal 8-15 [facility] Comment on above: Order Comment: Speci men Type: BLOOD SPECIMENOrdering Facility: [facility] Address: [address] [place] [address] Performed By: #### 3 051-0, 6-3, 44602-7, 3023-7 ####[facility] LABIA [id number] [place] [address] [place] AST [Catalytic activity/Vol] 20 U/L Normal 13-35 [facility] Comment on above: Order Comment: Speci men Type: BLOOD SPECIMENOrdering Facility: [facility] Address: [address] [place] [address] Performed By: #### 3 051-0, 3016-3, 92016-7, 3023-7 ####[facility] LABCLIA [id number] [place] [address] [place] Bilirubin [Mass/Vol] 0.3 mg/dL Normal 0.2-1.3 [facility] Comment on above: Order Comment: Speci men Type: BLOOD SPECIMENOrdering Facility: [facility] Address: [address] [place] [address] Performed By: #### 3 051-0, 6-3, 12745-9, 3024-7 ####[facility] LABCLIA [id number] [address] [address] [place] Calcium [Mass/Vol] 9.0 mg/dL Normal 8.5-10.2 [facility] Comment on above: Order Comment: Speci men Type: BLOOD SPECIMENOrdering Facility: [facility] Address: [address] [place] [address] Performed By: #### 3 051-0, 3016-3, 30068-1, 3023-7 ####[facility] LABIA [id number] [place] [address] [place] Chloride [Moles/Vol] 106 mmol/L Normal 98-107 [facility] Comment on above: Order Comment: Speci men Type: BLOOD SPECIMENOrdering Facility: [facility] Address: [address] [place] [address] Performed By: #### 3 051-0, 6-3, 41844-3, 3023-7 ####[facility] LABIA [id number] [place] [address] [place] CO2 [Moles/Vol] 22 mmol/L Normal 22-30 [facility] Comment on above: Order Comment: Speci men Type: BLOOD SPECIMENOrdering Facility: [facility] Address: [address] [place] [address] Performed By: #### 3 051-0, 3016-3, 16482-0, 3024-7 ####[facility] LABIA [id number] [place] [address] [place] Creatinine [Mass/Vol] 1.31 mg/dL High 0.58-0.96 [facility] Comment on above: Order Comment: Speci men Type: BLOOD SPECIMENOrdering Facility: [facility] Address: [address] [place] [address] Performed By: #### 3 051-0, 3016-3, 43843-6, 3024-7 ####[facility] LABCLIA [id number] [place] [address] [place] Creatinine and Glomerular filtration rate.predicted panel (S/P/Bld) 40 mL/min/1.73m??? Low >=60 [facility] Comment on above: Order Comment: Chiquita thornton Type: BLOOD SPECIMENOrdering Facility: [facility] Address: [address] [place] [address] Result Comment: Genesis mated Glomerular Filtration Rate (eGFR) is calculated using the 2020 CKD-EPI creatinine equation. This equation utilizes serum creatinine, sex, and age as parameters. The creatinine assay has traceable calibration to isotope dilution-mass spectrometry. Refer to KDIGO guidelines for clinical interpretation. In patients with unstable renal function, e.g. those with acute kidney injury, the eGFR may not accurately reflect actual GFR. Performed By: #### 3 051-0, 3016-3, 42806-6, 3024-7 ####[facility] LABCLIA [id number] [place] [id number] [place] Glucose [Mass/Vol] 99 mg/dL Normal 74-99 [facility] Comment on above: Order Comment: Chiquita thornton Type: BLOOD SPECIMENOrdering Facility: [facility] Address: [address] [place] [address] Result Comment: The [place] Diabetes Association (ADA) provides guidance for cutoff values for fasting glucose and random glucose. The ADA defines fasting as no caloric intake for at least 8 hours. Fasting plasma glucose results between 100 to 125 mg/dL indicate increased risk for diabetes (prediabetes). Fasting plasma glucose results greater than or equal to 126 mg/dL meet the criteria for diagnosis of diabetes. In the absence of unequivocal hyperglycemia, results should be confirmed by repeat testing. In a patient with classic symptoms of hyperglycemia or hyperglycemic crisis, random plasma glucose results greater than or equal to 200 mg/dL meet the criteria for diagnosis of diabetes. Reference: Standards of Medical Care in Diabetes 2016, [place] Diabetes Association. Diabetes Care. 2016.39(Suppl 1). Performed By: #### 3 051-0, 3016-3, 64291-3, 7 ####[facility] LABCLIA [id number] [address] [address] [place] Potassium [Moles/Vol] 4.1 mmol/L Normal 3.7-5.1 [facility] Comment on above: Order Comment: Speci men Type: BLOOD SPECIMENOrdering Facility: [facility] Address: [address] [place] [address] Performed By: #### 3 051-0, 3016-3, 52192-2, 7 ####[facility] LABIA [id number] [place] [address] [place] Protein [Mass/Vol] 6.4 g/dL Normal 6.3-8.0 [facility] Comment on above: Order Comment: Speci men Type: BLOOD SPECIMENOrdering Facility: [facility] Address: [address] [place] [address] Performed By: #### 3 051-0, 3016-3, 17104-3, 7 ####[facility] LABIA [id number] [place] [id number] [place] Sodium [Moles/Vol] 141 mmol/L Normal 136-144 [facility] Comment on above: Order Comment: Speci men Type: BLOOD SPECIMENOrdering Facility: [facility] Address: [address] [place] [address] Performed By: #### 3 051-0, 3016-3, 39855-7, 7 ####[facility] LABCLIA [id number] [address] [address] [place] Urea nitrogen [Mass/Vol] 18 mg/dL Normal 7-21 [facility] Comment on above: Order Comment: Speci men Type: BLOOD SPECIMENOrdering Facility: [facility] Address: [address] [place] [address] Performed By: #### 3 051-0, 3016-3, 11112-1, 7 ####[facility] LABCLIA [id number] [place] [address] [place] T3Free SerPl-mCncon 12-10-19 24 Free T3 [Mass/Vol] 2.2 pg/mL Low 2.3-4.1 [facility] Comment on above: Order Comment: Speci men Type: BLOOD SPECIMENOrdering Facility: [facility] Address: [address] [place] [address] Performed By: #### 3 051-0, 6-3, 38710-3, 7 ####[facility] LABCLIA [id number] [place] [address] [place] T4 Free SerPl-mCncon 024 Free T4 [Mass/Vol] 1.1 ng/dL Normal 0.9-1.7 [facility] Comment on above: Order Comment: Speci men Type: BLOOD SPECIMENOrdering Facility: [facility] Address: [address] [place] [address] Performed By: #### 3 051-0, 6-3, 96446-0, 7 ####[facility] LABCLIA [id number] [place] [address] [place] TSH SerPl-aCncon 12-10-2023 TSH Qn 2.210 m[IU]/L Normal 0.270-4.200 [facility] Comment on above: Order Comment: Speci men Type: BLOOD SPECIMENOrdering Facility: [facility] Address: [address] [place] [address] Performed By: #### 3 051-0, 3016-3, 84276-5, 7 ####[facility] LABCLIA [id number] [address] [address] [facility] AINSLEY SORENSON ([id number]) 1935 F Date Time Provider Department 09/24/23 KRYSTAL MEZA [facility] During your visit today, we recorded the following information about you: Krystal Meza APRN.SABIHA 09/24/2023 7:32 AM Signed Please let her know that her urine culture does show a UTI. I don't see that Shonda sent her in an antibiotic? Please confirm this with her and I will send one in. Krystal Meza APRN.Jillian Becker LPN 09/24/2023 8:10 AM Signed Left message to return call. Suzy Lindo RN 09/24/2023 11:15 AM Signed Pts daughter called and is notified of providers results and instructions. She voices understanding and states she was never notified about any antibiotic. Please send antibiotic to [facility] in [place] and call and leave a VM on the daughters phone to let her know when it was sent. KEYONNA Steward Rebekah, APRN.[facility] 09/24/2023 2:47 PM Signed The following approved medication requests have been transmitted electronically. Requested Prescriptions Signed Prescriptions Disp Refills sulfamethoxazole-trime thoprim (BACTRIM DS) 800-160 mg per tablet 14 tablet 0 Sig: Take 1 tablet by mouth two times a day for 7 days. Authorizing Provider: KRYSTAL MEZA APRN.Lilia Adames MA 09/24/2023 2:55 PM Signed Left detailed message with daughter. Lilia Richmond MA Allergies As of Date: 09/24/2023 Noted Allergy Reaction ARICEPT (DONEPEZIL) 04/26/2023 9 - Itching AUGMENTIN (AMOXICILLIN-POT CLAVUL*11/11/2012 6 - Diarrhea CIPROFLOXACIN 07/18/2010 2 - Rash LEVAQUIN (LEVOFLOXACIN) 04/24/2013 2 - Rash Comments: itching rash Date Reviewed: 08/13/2023 Reviewed by: Isatu Moreno LPN - Fully Assessed Reason for Visit: Results [95] Order(s):sulfamethoxaz ole-trimethoprim (BACTRIM DS) 800-160 mg per tabletTake 1 tablet by mouth two times a day for 7 days.Disp: 14 tabletRfl: 0 Prescriptions as of 09/24/2023 - sulfamethoxazole-trime thoprim (BACTRIM DS) 800-160 mg per tablet Take 1 tablet by mouth two times a day for 7 days. - levothyroxine (LEVOXYL) 50 mcg tablet Take 1 tablet by mouth once daily. Take on empty stomach. For Thyroid - sertraline (ZOLOFT) 50 mg tablet Take 1 tablet by mouth once daily. - rivastigmine tartrate (EXELON) 3 mg capsule Take 1 capsule by mouth two times a day with meals. - allopurinol (ZYLOPRIM) 100 mg tablet Take 1 tablet by mouth once daily. For gout. - MEDICAL SUPPLY Blood pressure monitor weight of pt 103# - Blood Pressure Monitor (BLOOD PRESSURE KIT) 1 Each once daily. - loperamide HCl (IMODIUM) 2 mg tab Take 2 each morning. May take another 2 later in the day, as needed. - aspirin, enteric coated (ASPIRIN, ENTERIC COATED) 81 mg EC tablet Take 1 tablet by mouth once daily. - Multivitamins-Minerals -Lutein (CENTRUM SILVER) ORAL Tab Take one(1) tablet daily. 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] 03/20/2016 Left carotid bruit [R09.89] 04/14/2017 Stage 3a chronic kidney disease (HCC) [N18.31] 05/17/2018 Recent unexplained weight loss [R63.4] 07/18/2018 Major depressive disorder with single episode, *07/18/2018 Abdominal aortic aneurysm (AAA) without rupture*07/03/2019 Chronic anxiety [F41.9] 10/16/2019 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 Encounter Status:Closed by LILIA RICHMOND [facility]/24/23 [facility] Tele[facility] (RAISA) AINSLEY SORENSON ([id number]) 1935 F Date Time Provider Department 09/22/23 SHONDA TYLER During your visit today, we recorded the following information about you: Allergies As of Date: 09/22/2023 Noted Allergy Reaction ARICEPT (DONEPEZIL) 04/26/2023 9 - Itching AUGMENTIN (AMOXICILLIN-POT CLAVUL*11/11/2012 6 - Diarrhea CIPROFLOXACIN 07/18/2010 2 - Rash LEVAQUIN (LEVOFLOXACIN) 04/24/2013 2 - Rash Comments: itching rash Date Reviewed: 08/13/2023 Reviewed by: Isatu Moreno LPN - Fully Assessed Prescriptions as of 10/14/2023 - sertraline (ZOLOFT) 50 mg tablet Take 1 tablet by mouth once daily. - levothyroxine (LEVOXYL) 50 mcg tablet Take 1 tablet by mouth once daily. Take on empty stomach. For Thyroid - rivastigmine tartrate (EXELON) 3 mg capsule Take 1 capsule by mouth two times a day with meals. - allopurinol (ZYLOPRIM) 100 mg tablet Take 1 tablet by mouth once daily. For gout. - MEDICAL SUPPLY Blood pressure monitor weight of pt 103# - Blood Pressure Monitor (BLOOD PRESSURE KIT) 1 Each once daily. - loperamide HCl (IMODIUM) 2 mg tab Take 2 each morning. May take another 2 later in the day, as needed. - aspirin, enteric coated (ASPIRIN, ENTERIC COATED) 81 mg EC tablet Take 1 tablet by mouth once daily. - Multivitamins-Minerals -Lutein (CENTRUM SILVER) ORAL Tab Take one(1) tablet daily. 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] 03/20/2016 Left carotid bruit [R09.89] 04/14/2017 Stage 3a chronic kidney disease (HCC) [N18.31] 05/17/2018 Recent unexplained weight loss [R63.4] 07/18/2018 Major depressive disorder with single episode, *07/18/2018 Abdominal aortic aneurysm (AAA) without rupture*07/03/2019 Chronic anxiety [F41.9] 10/16/2019 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*12/21/2019 Magnesium deficiency [E61.2] 12/21/2019 Hypokalemia [E87.6] 12/21/2019 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] 03/29/2020 Hypertensive kidney disease with stage 3a chron*06/04/2021 Iron deficiency anemia [D50.9] 01/25/2023 Encounter Status:Closed by SHONDA TYLER on 10/14/23 Normal [facility] Bacteria Ur Culton 4 Bacteria identified Cx Nom (U) CULTURE, URINE: Mixed microbiota, including predominantly: ORGANISM ID: 1 10,000 -<50,000 CFU/ml Proteus mirabilis ORGANISM ID: 1 (PROTEUS MIRABILIS) -- ANTIBIOTIC INTERPRETATION FREDDIE STATUS REFERENCE RANGE -- Ampicillin S <=2 F Susceptible <=8 , Intermediate >8 , Resistant >16 Cefazolin S <=4 F Susceptible 0-16 , Intermediate <0 or >16 , Resistant >16 For uncomplicated urinary tract infections, cefazolin results can be used to predict susceptibility or resistance to cephalexin. Ceftriaxone S <=1 F Susceptible <=1 , Intermediate >1 , Resistant >=4 Cefepime S <=1 F Susceptible <=2 , Susceptible-Dose Dependent >2 , Resistant >=16 Ertapenem S <=0.5 F Susceptible <=0.5 , Intermediate >.5 , Resistant >1 Meropenem S <=0.25 F Susceptible <=1 , Intermediate >1 , Resistant >2 Ampicillin/Sulbact S <=2 F Susceptible <=8 , Intermediate >8 , Resistant >16 Piperacillin/Tazobac S <=4 F Susceptible <16 , Susceptible-Dose Dependent >=16 , Resistant >=32 Gentamicin S <=1 F Susceptible <=2 , Intermediate >2 , Resistant >=8 Tobramycin S <=1 F Susceptible <4 , Intermediate >=4 , Resistant >=8 Trimeth sulfameth S <=20 F Susceptible <=40 , Resistant >40 Ciprofloxacin S <=0.25 F Susceptible <0.5 , Intermediate >=.5 , Resistant >=1 Nitrofurantoin R 64 F Abnormal [facility] Comment on above: Performed By: #### 6 30-4 ####[facility] LABCLIA [id number] [place] [address] [place] Urinalysis complete panel (U )on 09-21-2023 Bacteria LM.HPF (Urine sed) [#/Area] Negative Normal Negative [facility] Comment on above: Order Comment: Speci men Type: URINE SPECIMENOrdering Facility: [facility] Address: [address] [place] [address] Performed By: #### 2 4356-8 ####[facility] LABCLIA [id number] [place] [address] [place] Bilirubin Ql (U) Negative Normal Negative [facility] Comment on above: Order Comment: Speci men Type: URINE SPECIMENOrdering Facility: [facility] Address: [address] [place] [address] Performed By: #### 2 4356-8 ####[facility] LABIA [id number] [place] [address] [place] Clarity (Unsp spec) Clear Normal Clear [facility] Comment on above: Order Comment: Speci men Type: URINE SPECIMENOrdering Facility: [facility] Address: [address] [place] [address] Performed By: #### 2 4356-8 ####[facility] LABCLIA [id number] [place] [address] [place] Color (U) Yellow Normal Yellow [facility] Comment on above: Order Comment: Speci men Type: URINE SPECIMENOrdering Facility: [facility] Address: [address] [place] [address] Performed By: #### 2 4356-8 ####[facility] LABCLIA [id number] [place] [address] [place] Epithelial cells LM.HPF (Urine sed) [#/Area] None Seen Normal [facility] Comment on above: Order Comment: Speci men Type: URINE SPECIMENOrdering Facility: [facility] Address: [address] [place] [address] Performed By: #### 2 4356-8 ####[facility] LABCLIA [id number] [place] [address] [place] Glucose Test strip (U) [Mass/Vol] Negative Normal Negative [facility] Comment on above: Order Comment: Speci men Type: URINE SPECIMENOrdering Facility: [facility] Address: [address] [place] [address] Performed By: #### 2 4356-8 ####[facility] LABIA [id number] [place] [address] [place] Hemoglobin Ql (U) Negative Normal Negative [facility] Comment on above: Order Comment: Speci men Type: URINE SPECIMENOrdering Facility: [facility] Address: [address] [place] [address] Performed By: #### 2 4356-8 ####[facility] LABCLIA [id number] [place] [address] [place] Hyaline casts (Urine sed) [#/Area] 0 /[LPF] Normal 0 /LPF [facility] Comment on above: Order Comment: Speci men Type: URINE SPECIMENOrdering Facility: [facility] Address: [address] [place] [address] Performed By: #### 2 4356-8 ####[facility] LABCLIA [id number] [place] [address] [place] Ketones Ql (U) Negative Normal Negative [facility] Comment on above: Order Comment: Speci men Type: URINE SPECIMENOrdering Facility: [facility] Address: [address] [place] [address] Performed By: #### 2 4356-8 ####[facility] LABCLIA [id number] [place] [address] [place] Leukocyte esterase Test strip Ql (U) 2+ Abnormal Negative [facility] Comment on above: Order Comment: Speci men Type: URINE SPECIMENOrdering Facility: [facility] Address: [address] [place] [address] Performed By: #### 2 4356-8 ####[facility] LABCLIA [id number] [place] [address] [place] Nitrite Ql (U) Negative Normal Negative [facility] Comment on above: Order Comment: Speci men Type: URINE SPECIMENOrdering Facility: [facility] Address: [address] [place] [address] Performed By: #### 2 4356-8 ####[facility] LABCLIA [id number] [place] [address] [place] pH (U) 7.0 [pH] Normal <8.5 [facility] Comment on above: Order Comment: Speci men Type: URINE SPECIMENOrdering Facility: [facility] Address: [address] [place] [address] Performed By: #### 2 4356-8 ####[facility] LABCLIA [id number] [place] [address] [place] Protein (U) [Mass/Vol] Negative Normal Negative [facility] Comment on above: Order Comment: Speci men Type: URINE SPECIMENOrdering Facility: [facility] Address: [address] [place] [address] Performed By: #### 2 4356-8 ####[facility] LABIA [id number] [place] [address] [place] RBC LM.HPF (Urine sed) [#/Area] 0-2 /HPF Normal 0-2 /HPF [facility] Comment on above: Order Comment: Speci men Type: URINE SPECIMENOrdering Facility: [facility] Address: [address] [place] [address] Performed By: #### 2 4356-8 ####[facility] [id number] [place] [address] [place] Specific gravity (U) [Rel density] 1.017 Normal 1.005-1.030 [facility] Comment on above: Order Comment: Speci men Type: URINE SPECIMENOrdering Facility: [facility] Address: [address] [place] [address] Performed By: #### 2 4356-8 ####[facility] LABIA [id number] [place] [address] [place] Urobilinogen Ql (U) 1.0 EU/dL Normal 0.2-1.0 EU/dL [facility] Comment on above: Order Comment: Speci men Type: URINE SPECIMENOrdering Facility: [facility] Address: [address] [place] [address] Performed By: #### 2 4356-8 ####[facility] LABIA [id number] [place] [address] [place] WBC LM.HPF (Urine sed) [#/Area] 11-20 /HPF Abnormal 0-5 /HPF [facility] Comment on above: Order Comment: Speci men Type: URINE SPECIMENOrdering Facility: [facility] Address: [address] [place] [address] Performed By: #### 2 4356-8 ####[facility] BOUBACAR [id number] ROLAND SANCHES [id number] OF [facility] Angelo 08-18-2023 CNPN Telephone (INTMWS) AINSLEY SORENSON ([id number]) 1935 F Date Time Provider Department 08/18/23 SHONDA TYLER During your visit today, we recorded the following information about you: Shonda Tyler APRN.CLINICAL AUDIOLOGIST 08/18/2023 2:32 PM Signed Urine still with bacteria but no sensitivity performed. I am repeating treatment of bactrim but slightly lowering dose in response to previous kidney function. Repeat urine 10-14 days after completion of treatment. Deepti Tierney MA 08/18/2023 4:28 PM Signed Patient daughter notified. Allergies As of Date: 08/18/2023 Noted Allergy Reaction ARICEPT (DONEPEZIL) 04/26/2023 9 - Itching AUGMENTIN (AMOXICILLIN-POT CLAVUL*11/11/2012 6 - Diarrhea CIPROFLOXACIN 07/18/2010 2 - Rash LEVAQUIN (LEVOFLOXACIN) 04/24/2013 2 - Rash Comments: itching rash Date Reviewed: 08/13/2023 Reviewed by: Isatu Moreno LPN - Fully Assessed Reason for Visit: Results [95] Primary Visit Diagnosis:Recent urinary tract infection [Z87.440] Other Visit Diagnosis:Recurrent UTI [N39.0] Order(s):sulfamethoxaz ole-trimethoprim (BACTRIM) 400-80 mg per tabletTake 1 tablet by mouth once daily for 7 days.Disp: 7 tabletRfl: 0 URINALYSIS, WITH MICROSCOPIC [SQUAWMIC] Order #: [id number] FUTURE URINE CULTURE [SQURCUL] Order #: [id number] FUTURE Prescriptions as of 08/18/2023 - sulfamethoxazole-trime thoprim (BACTRIM) 400-80 mg per tablet Take 1 tablet by mouth once daily for 7 days. - levothyroxine (LEVOXYL) 50 mcg tablet Take 1 tablet by mouth once daily. Take on empty stomach. For Thyroid - sertraline (ZOLOFT) 50 mg tablet Take 1 tablet by mouth once daily. - rivastigmine tartrate (EXELON) 3 mg capsule Take 1 capsule by mouth two times a day with meals. - allopurinol (ZYLOPRIM) 100 mg tablet Take 1 tablet by mouth once daily. For gout. - MEDICAL SUPPLY Blood pressure monitor weight of pt 103# - Blood Pressure Monitor (BLOOD PRESSURE KIT) 1 Each once daily. - loperamide HCl (IMODIUM) 2 mg tab Take 2 each morning. May take another 2 later in the day, as needed. - aspirin, enteric coated (ASPIRIN, ENTERIC COATED) 81 mg EC tablet Take 1 tablet by mouth once daily. - Multivitamins-Minerals -Lutein (CENTRUM SILVER) ORAL Tab Take one(1) tablet daily. 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] 03/20/2016 Left carotid bruit [R09.89] 04/14/2017 Stage 3a chronic kidney disease (HCC) [N18.31] 05/17/2018 Recent unexplained weight loss [R63.4] 07/18/2018 Major depressive disorder with single episode, *07/18/2018 Abdominal aortic aneurysm (AAA) without rupture*07/03/2019 Chronic anxiety [F41.9] 10/16/2019 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 Medications Discontinued During This Encounter Prescriptions - sulfamethoxazole-trime thoprim (BACTRIM) 400-80 mg per tablet (Discontinued) Take 1 tablet by mouth two times a day for 5 days. - potassium chloride ER (K-DUR, KLOR-CON) 20 mEq tablet (Discontinued) Take 1 tablet by mouth once daily Encounter Status:Closed by DEEPTI TIERNEY on 08/18/23 Normal [facility] Bacteria Ur Culton 4 Bacteria identified Cx Nom (U) ORGANISM ID: 1 50,000-<100,000 CFU/ml Lactose negative gram negative bacilli No susceptibility testing done. Call lab within 72 hours to initiate work-up if clinically indicated. ORGANISM ID: 2 50,000-<100,000 CFU/ml Normal urogenital aleksandr Normal [facility] Comment on above: Performed By: #### 6 30-4 ####[facility] LABCLIA [id number] [address] [place] OF [facility] CNOVon 08-13-2023 CNOV Office Visit (INTMWS ) AINSLEY SORENSON ([id number]) 1935 F Date Time Provider Department 08/13/23 1:40 PM SHONDA TYLER During your visit today, we recorded the following information about you: Pulse Blood pressure Weight 85/minute 122/66 50.7 kg Shonda Tyler APRN.CNP 08/13/2023 2:15 PM Signed CC: Patient presents with: Recheck: 6 week follow up HPI Ainsley Sorenson is a 87 year old female who presents today for follow up on worsening dementia, diarrhea, and recent UTI. UTI symptoms resolved. Denies increase in urinary frequency, fever, chills, abdominal pain, difficulty/pain urinating, or change in energy. Still with some diarrhea but much improved with the decreased dose in exelon. Daughter is thinking the residual diarrhea may be result of dairy but will continue to monitor to see if this may be the cause. Denies any nausea, vomiting, or constipation. Daughter not sure if memory is any different with resolution of UTI. States she has her good and bad days, but has no concerns for her safety. No change from living situations from last visit Patient lives by herself but daughter lives across the street so is there daily and prepares her medications. Denies any falls or wandering off. House is one story with no steps. REVIEW OF SYSTEMS General: no fevers, no chills, no night sweats, no recurrent infections, no change in appetite, no change in energy, and no significant changes in weight Respiratory: no cough, no wheezing, no shortness of breath, no hemoptysis Cardiovascular: no chest pain, no chest pressure, no palpitations, and no swelling Neurologic: No headache,dizziness, syncope. 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 CKD (chronic kidney disease), stage III (HCC) 05/17/2018 Diverticulosis of colon (without mention of hemorrhage) Essential hypertension, benign Gout attack 12/2014 R great toe Hyperlipidemia LDL goal <100 03/20/2016 Kidney stones Left carotid bruit 04/14/2017 Other symptoms involving cardiovascular system Uterovaginal prolapse PAST SURGICAL HISTORY Procedure Laterality Date COLONOSCOPY FLX DX W/COLLJ SPEC WHEN PFRMD 04/07/2012 Colonoscopy repeat 10 years DILATION AND CURETTAGE DXAND/THER NONOBSTETRIC Dilation AND curettage LAPAROSCOPIC TUBAL LIGATION/RING/CLIP ALLERGIES Aricept [Donepezil], Augmentin [Amoxicillin-Pot Clavulanate], Ciprofloxacin, and Levaquin [Levofloxacin] MEDICATIONS sertraline (ZOLOFT) 50 mg tablet Take 1 tablet by mouth once daily. rivastigmine tartrate (EXELON) 3 mg capsule Take 1 capsule by mouth two times a day with meals. levothyroxine (LEVOXYL) 50 mcg tablet Take 1 tablet by mouth once daily. Take on empty stomach. For Thyroid allopurinol (ZYLOPRIM) 100 mg tablet Take 1 tablet by mouth once daily. For gout. MEDICAL SUPPLY Blood pressure monitor weight of pt 103# Blood Pressure Monitor (BLOOD PRESSURE KIT) 1 Each once daily. loperamide HCl (IMODIUM) 2 mg tab Take 2 each morning. May take another 2 later in the day, as needed. potassium chloride ER (K-DUR, KLOR-CON) 20 mEq tablet Take 1 tablet by mouth once daily aspirin, enteric coated (ASPIRIN, ENTERIC COATED) 81 mg EC tablet Take 1 tablet by mouth once daily. Multivitamins-Minerals -Lutein (CENTRUM SILVER) ORAL Tab Take one(1) tablet daily. FAMILY HISTORY Problem Relation Age of Onset other (cerebral hemorrhage) Mother Diabetes Father Stroke Father Social History Tobacco Use Smoking status: Former Packs/day: 0.50 Years: 20.00 Additional pack years: 0.00 Total pack years: 10.00 Types: Cigarettes Quit date: 1992 Years since quittin.4 Smokeless tobacco: Never Vaping Use Vaping Use: Never used Substance Use Topics Alcohol use: No Drug use: No PHYSICAL EXAM BP 122/66 (BP Site: Right Arm) Pulse 85 Wt 50.7 kg (111 lb 12.8 oz) SpO2 96% BMI 18.60 kg/m? General Appearance: well appearing, in no acute distress, alert Skin: Skin color, texture, turgor normal for age; Eyes: conjunctiva pink and moist, no icterus, sclera white, non-injected Lungs: Lungs clear to auscultation. No wheezing, rhonchi, rales. Heart: RRR without murmur, gallop, or rubs. No ectopy Abdomen: Abdomen soft, non-tender. Bowel sounds normal. No masses, organomegaly Health maintenance reviewed with patient: Shingrix Vaccine(1 of 2) Never done RSV Vaccine(1 - 1-dose 60+ series) Never done Covid-19 Vaccine( season) due on 11/20/2022 Advance Directive Discussion Never done Diabetes Screening due on 04/26/2026 DTaP,Tdap,Td Vaccine(3 - Td or Tdap) due on 09/02/2030 Bone Density Screening Completed Pneumococcal Vaccine: 65+ Completed Influenza Vaccine Discontinued DATA REVIEWED: Most recent labs ASSESSMENT/PLAN: 1. Recent urinary tract infection - ICD9: V13.0 (more content not included)... Normal [facility] UA DIP, URINE (POC)on 2023 BILIRUBIN UA (POCT) Negative Negative [facility] CLARITY UA (POCT) Slightly Cloudy Cl [facility] COLOR UA (POCT) Other [facility] GLUCOSE UA (POCT) Negative Negative mg/dL [facility] Hemoglobin Ql (U) Trace-intact Abnormal Negative [facility] Interpretation and review of laboratory results Abnormal [facility] KETONE UA (POCT) Negative Negative mg/dL [facility] LEUKOCYTES UA (POCT) Small Abnormal Negative [facility] NITRITE UA (POCT) Negative Negative [facility] PH UA (POCT) 6.0 4.5 - 8.0 [facility] Protein Ql (U) Negative Negative mg/dL [facility] SPECIFIC GRAVITY UA (POCT) 1.020 1.005 - 1.030 [facility] UROBILINOGEN UA (POCT) 0.2 Normal E.U./dL [facility] Location:[address], [place], [place], [id number] [place] [address] POINT OF CARE [facility] 04-29-2023 SABIHAN Telephone (INTMWS) AINSLEY SORENSON ([id number]) 1935 F Date Time Provider Department 04/29/23 SHONDA TYLER During your visit today, we recorded the following information about you: Shonda Tyler APRN.CNP 04/29/2023 2:48 PM Signed Patient is positive for urinary tract infection. Hold your potassium supplement while on the antibiotic. Thank you Shonda Tyler APRN.Suzy Joaquin RN 04/29/2023 3:25 PM Signed Pts granddaughter Suzy called and is notified of providers results and instructions. She voices understanding and her or her mother will go pick the medication up for the Pt. Suzy Lindo RN Allergies As of Date: 04/29/2023 Noted Allergy Reaction ARICEPT (DONEPEZIL) 04/26/2023 9 - Itching AUGMENTIN (AMOXICILLIN-POT CLAVUL*11/11/2012 6 - Diarrhea CIPROFLOXACIN 07/18/2010 2 - Rash LEVAQUIN (LEVOFLOXACIN) 04/24/2013 2 - Rash Comments: itching rash Date Reviewed: 04/26/2023 Reviewed by: Deepti Tierney Ma - Fully Assessed Reason for Visit: Results [95] Order(s):sulfamethoxaz ole-trimethoprim (BACTRIM) 400-80 mg per tabletTake 1 tablet by mouth two times a day for 5 days.Disp: 10 tabletRfl: 0 Prescriptions as of 04/29/2023 - sulfamethoxazole-trime thoprim (BACTRIM) 400-80 mg per tablet Take 1 tablet by mouth two times a day for 5 days. - levothyroxine (LEVOXYL) 50 mcg tablet Take 1 tablet by mouth once daily. Take on empty stomach. For Thyroid - rivastigmine tartrate (EXELON) 3 mg capsule Take 1 capsule by mouth two times a day with meals. - sertraline (ZOLOFT) 50 mg tablet Take 1 tablet by mouth once daily. - allopurinol (ZYLOPRIM) 100 mg tablet Take 1 tablet by mouth once daily. For gout. - MEDICAL SUPPLY Blood pressure monitor weight of pt 103# - Blood Pressure Monitor (BLOOD PRESSURE KIT) 1 Each once daily. - potassium chloride ER (K-DUR, KLOR-CON) 20 mEq tablet Take 1 tablet by mouth once daily - loperamide HCl (IMODIUM) 2 mg tab Take 2 each morning. May take another 2 later in the day, as needed. - aspirin, enteric coated (ASPIRIN, ENTERIC COATED) 81 mg EC tablet Take 1 tablet by mouth once daily. - Multivitamins-Minerals -Lutein (CENTRUM SILVER) ORAL Tab Take one(1) tablet daily. 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] 03/20/2016 Left carotid bruit [R09.89] 04/14/2017 Stage 3a chronic kidney disease (HCC) [N18.31] 05/17/2018 Recent unexplained weight loss [R63.4] 07/18/2018 Major depressive disorder with single episode, *07/18/2018 Abdominal aortic aneurysm (AAA) without rupture*07/03/2019 Chronic anxiety [F41.9] 10/16/2019 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 Encounter Status:Closed by SUZY LINDO on 04/29/23 Normal [facility] Urinalysis complete panel (U )on 04-27-2023 Bacteria LM.HPF (Urine sed) [#/Area] Negative Normal Negative [facility] Comment on above: Order Comment: Speci men Type: URINE SPECIMENOrdering Facility: [facility] Address: [address] [place] [address] Performed By: #### 2 4356-8 ####[facility] LABCLIA [id number] [place] [address] [place] Bilirubin Ql (U) Negative Normal Negative [facility] Comment on above: Order Comment: Speci men Type: URINE SPECIMENOrdering Facility: [facility] Address: [address] [place] [address] Performed By: #### 2 4356-8 ####[facility] LABCLIA [id number] [place] [address] [place] Clarity (Unsp spec) Clear Normal Clear [facility] Comment on above: Order Comment: Speci men Type: URINE SPECIMENOrdering Facility: [facility] Address: [address] [place] [address] Performed By: #### 2 4356-8 ####[facility] LABCLIA [id number] [place] [address] [place] Color (U) Yellow Normal Yellow [facility] Comment on above: Order Comment: Speci men Type: URINE SPECIMENOrdering Facility: [facility] Address: [address] [place] [address] Performed By: #### 2 4356-8 ####[facility] LABCLIA [id number] [place] [address] [place] Epithelial cells LM.HPF (Urine sed) [#/Area] None Seen Normal [facility] Comment on above: Order Comment: Speci men Type: URINE SPECIMENOrdering Facility: [facility] Address: [address] [place] [address] Performed By: #### 2 4356-8 ####[facility] LABCLIA [id number] [place] [address] [place] Glucose Test strip (U) [Mass/Vol] Negative Normal Negative [facility] Comment on above: Order Comment: Speci men Type: URINE SPECIMENOrdering Facility: [facility] Address: [address] [place] [address] Performed By: #### 2 4356-8 ####[facility] LABCLIA [id number] [place] [address] [place] Hemoglobin Ql (U) Negative Normal Negative [facility] Comment on above: Order Comment: Speci men Type: URINE SPECIMENOrdering Facility: [facility] Address: [address] [place] [address] Performed By: #### 2 4356-8 ####[facility] LABCLIA [id number] [place] [address] [place] Hyaline casts (Urine sed) [#/Area] 1-3 /LPF Abnormal 0 /LPF [facility] Comment on above: Order Comment: Speci men Type: URINE SPECIMENOrdering Facility: [facility] Address: [address] [place] [address] Performed By: #### 2 4356-8 ####[facility] LABCLIA [id number] [place] [address] [place] Ketones Ql (U) Negative Normal Negative [facility] Comment on above: Order Comment: Speci men Type: URINE SPECIMENOrdering Facility: [facility] Address: [address] [place] [address] Performed By: #### 2 4356-8 ####[facility] LABCLIA [id number] [place] [address] [place] Leukocyte esterase Test strip Ql (U) 2+ Abnormal Negative [facility] Comment on above: Order Comment: Speci men Type: URINE SPECIMENOrdering Facility: [facility] Address: [address] [place] [address] Performed By: #### 2 4356-8 ####[facility] LABCLIA [id number] [place] [id number] [place] Nitrite Ql (U) Negative Normal Negative [facility] Comment on above: Order Comment: Speci men Type: URINE SPECIMENOrdering Facility: [facility] Address: [address] [place] [address] Performed By: #### 2 4356-8 ####[facility] LABIA [id number] [place] [address] [place] pH (U) 6.0 [pH] Normal <8.5 [facility] Comment on above: Order Comment: Speci men Type: URINE SPECIMENOrdering Facility: [facility] Address: [address] [place] [address] Performed By: #### 2 4356-8 ####[facility] LABIA [id number] [place] [address] [place] Protein (U) [Mass/Vol] Negative Normal Negative [facility] Comment on above: Order Comment: Speci men Type: URINE SPECIMENOrdering Facility: [facility] Address: [address] [place] [address] Performed By: #### 2 4356-8 ####[facility] LABIA [id number] [place] [address] [place] RBC LM.HPF (Urine sed) [#/Area] 0-2 /HPF Normal 0-2 /HPF [facility] Comment on above: Order Comment: Speci men Type: URINE SPECIMENOrdering Facility: [facility] Address: [address] [place] [address] Performed By: #### 2 4356-8 ####[facility] LABIA [id number] [place] [address] [place] Specific gravity (U) [Rel density] 1.017 Normal 1.005-1.030 [facility] Comment on above: Order Comment: Speci men Type: URINE SPECIMENOrdering Facility: [facility] Address: [address] [place] [address] Performed By: #### 2 4356-8 ####[facility] LABIA [id number] [place] [address] [place] Urobilinogen Ql (U) 1.0 EU/dL Normal 0.2-1.0 EU/dL [facility] Comment on above: Order Comment: Speci men Type: URINE SPECIMENOrdering Facility: [facility] Address: [address] [place] [address] Performed By: #### 2 4356-8 ####[facility] LABIA [id number] [place] [address] [place] WBC LM.HPF (Urine sed) [#/Area] /[HPF] Abnormal 0-5 /HPF [facility] Comment on above: Order Comment: Speci men Type: URINE SPECIMENOrdering Facility: [facility] Address: [address] [place] [address] Performed By: #### 2 4356-8 ####[facility] LABIA [id number] [place] [address] [place] Urinalysis complete pnl Uron 04-27-2023 Urinalysis complete panel (U) COLOR: Yellow CLARITY: Clear GLUCOSE, URINE: Negative BILIRUBIN, URINE: Negative KETONES, URINE: Negative SPECIFIC GRAVITY, UR: 1.017 HEMOGLOBIN/BLOOD, UR: Negative PH, URINE: 6.0 PROTEIN, URINE: Negative UROBILINOGEN: 1.0 EU/dL NITRITES: Negative LEUKEST: 2+ WBC, URINE: >20 /HPF RBC, URINE: 0-2 /HPF BACTERIA: Negative SQUAMOUS EPITHELIAL CELLS: None Seen HYALINE CASTS: 1-3 /LPF ORGANISM ID: 1 50,000-<100,000 CFU/ml Proteus mirabilis ORGANISM ID: 1 (PROTEUS MIRABILIS) -- ANTIBIOTIC INTERPRETATION FREDDIE STATUS REFERENCE RANGE -- Ampicillin S <=2 F Susceptible <=8 , Intermediate >8 , Resistant >16 Cefazolin S <=4 F Susceptible 0-16 , Intermediate <0 or >16 , Resistant >16 For uncomplicated urinary tract infections, cefazolin results can be used to predict susceptibility or resistance to cephalexin. Ceftriaxone S <=1 F Susceptible <=1 , Intermediate >1 , Resistant >=4 Cefepime S <=1 F Susceptible <=2 , Susceptible-Dose Dependent >2 , Resistant >=16 Ertapenem S <=0.5 F Susceptible <=0.5 , Intermediate >.5 , Resistant >1 Meropenem S <=0.25 F Susceptible <=1 , Intermediate >1 , Resistant >2 Ampicillin/Sulbact S 8 F Susceptible <=8 , Intermediate >8 , Resistant >16 Piperacillin/Tazobac S <=4 F Susceptible <=16 , Intermediate >16 , Resistant >64 Gentamicin S <=1 F Susceptible <=4 , Intermediate >4 , Resistant >8 Tobramycin S <=1 F Susceptible <=4 , Intermediate >4 , Resistant >8 Trimeth sulfameth S <=20 F Susceptible <=40 , Resistant >40 Ciprofloxacin S <=0.25 F Susceptible <0.5 , Intermediate >=.5 , Resistant >=1 Nitrofurantoin R 128 F Susceptible <=32 , Intermediate >32 , Resistant >64 Abnormal [facility] Comment on above: Order Comment: Speci men Type: URINE SPECIMENOrdering Facility: [facility] Address: [address] [place] [address] Performed By: #### 2 4356-8 ####[facility] LABCHRISTI [id number] [address] [address] [place] CNOVon 04-26-2023 CNOV Office Visit (INTMWS ) AINSLEY SORENSON ([id number]) 1935 F Date Time Provider Department 04/26/23 1:20 PM OLDER, SHONDA KLINE During your visit today, we recorded the following information about you: Pulse Respiration Blood pressure Weight 72/minute 16/minute 128/70 49 kg OlderShonda APRN.CLINICAL AUDIOLOGIST 04/26/2023 2:41 PM Signed CC: Patient presents with: Recheck: Follow up anemia HPI Ainsley Sorenson is a 87 year old female who presents today for routine follow up Dementia: Has noticed quick decline in mental clarity. Patient lives by herself but daughter lives across the street so is there daily and prepares her medications. Denies any falls or wandering off. House is one story with no steps. Has had ongoing diarrhea which daughter thinks may have started with the exelon. Diarrhea will occur with incontinence but is not daily. Denies nausea, vomiting, abdominal pain, or fever. Anxiety and Depression: Patient does cry daily. Sleep: sleeps a large amount per daughter awake average of 3-4 hours a day Alcohol use: does not drink any alcohol Drug use: No Appetite: good Suicidal Thoughts: No suicidal ideation, intent or plan Support: Comes from multiple sources including daughter Hypothyroidism: Takes medication as prescribed. Reports being tired, but no abnormal change in weight. REVIEW OF SYSTEMS General: no fevers, no chills, no night sweats, no recurrent infections, no change in appetite, and no significant changes in weight Respiratory: no cough, no wheezing, no shortness of breath, no hemoptysis Cardiovascular: no chest pain, no chest pressure, no palpitations, and no swelling Endocrine: no polyuria, no polyphagia, and no polydipsia Neurologic: No headache, weakness, numbness, dizziness, syncope. 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 CKD (chronic kidney disease), stage III (HCC) 05/17/2018 Diverticulosis of colon (without mention of hemorrhage) Essential hypertension, benign Gout attack 12/2014 R great toe Hyperlipidemia LDL goal <100 03/20/2016 Kidney stones Left carotid bruit 04/14/2017 Other symptoms involving cardiovascular system Uterovaginal prolapse PAST SURGICAL HISTORY Procedure Laterality Date COLONOSCOPY FLX DX W/COLLJ SPEC WHEN PFRMD 04/07/2012 Colonoscopy repeat 10 years DILATION AND CURETTAGE DXAND/THER NONOBSTETRIC Dilation AND curettage LAPAROSCOPIC TUBAL LIGATION/RING/CLIP ALLERGIES Aricept [Donepezil], Augmentin [Amoxicillin-Pot Clavulanate], Ciprofloxacin, and Levaquin [Levofloxacin] MEDICATIONS levothyroxine (LEVOXYL) 50 mcg tablet Take 1 tablet by mouth once daily. Take on empty stomach. For Thyroid rivastigmine tartrate (EXELON) 3 mg capsule Take 1 capsule by mouth two times a day with meals. sertraline (ZOLOFT) 50 mg tablet Take 1 tablet by mouth once daily. allopurinol (ZYLOPRIM) 100 mg tablet Take 1 tablet by mouth once daily. For gout. MEDICAL SUPPLY Blood pressure monitor weight of pt 103# Blood Pressure Monitor (BLOOD PRESSURE KIT) 1 Each once daily. potassium chloride ER (K-DUR, KLOR-CON) 20 mEq tablet Take 1 tablet by mouth once daily loperamide HCl (IMODIUM) 2 mg tab Take 2 each morning. May take another 2 later in the day, as needed. aspirin, enteric coated (ASPIRIN, ENTERIC COATED) 81 mg EC tablet Take 1 tablet by mouth once daily. Multivitamins-Minerals -Lutein (CENTRUM SILVER) ORAL Tab Take one(1) tablet daily. FAMILY HISTORY Problem Relation Age of Onset other (cerebral hemorrhage) Mother Diabetes Father Stroke Father Social History Tobacco Use Smoking status: Former Packs/day: 0.50 Years: 20.00 Additional pack years: 0.00 Total pack years: 10.00 Types: Cigarettes Quit date: 1992 Years since quittin.1 Smokeless tobacco: Never Vaping Use Vaping Use: Never used Substance Use Topics Alcohol use: No Drug use: No PHYSICAL EXAM BP 128/70 Pulse 72 Resp 16 Wt 49 kg (108 lb) BMI 17.97 kg/m? General Appearance: well appearing, in no acute distress, alert Pysch: mood and affect broad and appropriate Skin: Skin color, texture, turgor normal for age; Eyes: conjunctiva pink and moist, no icterus, sclera white, non-injected Neck: Thyroid normal size and symmetric without palpable nodules, No adenopathy Lymph nodes: No cervical lymphadenopathy and No supraclavicular lymphadenopathy Lungs: Lungs clear to auscultation. No wheezing, rhonchi, rales. Heart: RRR without murmur, gallop, or rubs. No ectopy Neurological: Gait normal. Reflexes normal and symmetric. Sensation intact., speech normal, muscle tone normal, muscle strength normal Folstein MMSE 04/26/[address] 1 REGISTRATION 3 ATTENTION AND CALCULATION 0 RECALL 0 LANGUAGE 2 REPEAT 0 FOLLOW 3-STEP COMMAND 3 READ AND OBEY 0 WRITE A SENTENCE 0 (more content not included)... Normal [facility] Comprehensive metabolic 2000 panelon 04-26-2023 Albumin [Mass/Vol] 4.2 g/dL Normal 3.9-4.9 [facility] Comment on above: Order Comment: Speci men Type: BLOOD SPECIMENOrdering Facility: [facility] Address: [address] [place] [address] Performed By: #### 2 4323-8, 3016-3, 302-7 ####[facility] [id number] [place] [address] [place] ALP [Catalytic activity/Vol] 105 U/L Normal 34-123 [facility] Comment on above: Order Comment: Speci men Type: BLOOD SPECIMENOrdering Facility: [facility] Address: [address] [place] [address] Performed By: #### 2 4323-8, 3016-3, 3024-7 ####[facility] LABIA [id number] [place] [address] [place] ALT [Catalytic activity/Vol] 8 U/L Normal 7-38 [facility] Comment on above: Order Comment: Speci men Type: BLOOD SPECIMENOrdering Facility: [facility] Address: [address] [place] [address] Performed By: #### 2 4323-8, 3016-3, 302-7 ####[facility] LABCLIA [id number] [address] [address] [place] Anion gap [Moles/Vol] 11 mmol/L Normal 9-18 [facility] Comment on above: Order Comment: Speci men Type: BLOOD SPECIMENOrdering Facility: [facility] Address: [address] [place] [address] Performed By: #### 2 4323-8, 6-3, 7 ####[facility] LABIA [id number] [place] [address] [place] AST [Catalytic activity/Vol] 18 U/L Normal 13-35 [facility] Comment on above: Order Comment: Speci men Type: BLOOD SPECIMENOrdering Facility: [facility] Address: [address] [place], [place] [address] Performed By: #### 2 4323-8, 3015-3, 7 ####[facility] LABIA [id number] [place] [address] [place] Bilirubin [Mass/Vol] 0.3 mg/dL Normal 0.2-1.3 [facility] Comment on above: Order Comment: Speci men Type: BLOOD SPECIMENOrdering Facility: [facility] Address: [address] [place] [address] Performed By: #### 2 4323-8, 3015-3, 7 ####[facility] LABIA [id number] [address] [address] [place] Calcium [Mass/Vol] 9.6 mg/dL Normal 8.5-10.2 [facility] Comment on above: Order Comment: Speci men Type: BLOOD SPECIMENOrdering Facility: [facility] Address: [address] [place] [address] Performed By: #### 2 4323-8, 6-3, 3023-7 ####[facility] LABIA [id number] [address] [address] [place] Chloride [Moles/Vol] 104 mmol/L Normal 97-105 [facility] Comment on above: Order Comment: Speci men Type: BLOOD SPECIMENOrdering Facility: [facility] Address: [address] [place] [address] Performed By: #### 2 4323-8, 6-3, 7 ####[facility] LABIA [id number] [place] [address] [place] CO2 [Moles/Vol] 26 mmol/L Normal 22-30 [facility] Comment on above: Order Comment: Speci men Type: BLOOD SPECIMENOrdering Facility: [facility] Address: [address] [place] [address] Performed By: #### 2 4323-8, 3015-3, 7 ####[facility] LABIA [id number] [place] [address] [place] Creatinine [Mass/Vol] 1.25 mg/dL High 0.58-0.96 [facility] Comment on above: Order Comment: Speci men Type: BLOOD SPECIMENOrdering Facility: [facility] Address: [address] [place] [address] Performed By: #### 2 4323-8, 3, 7 ####[facility] LABIA [id number] [address] [address] [place] Creatinine and Glomerular filtration rate.predicted panel (S/P/Bld) 42 mL/min/1.73m??? Low >=60 [facility] Comment on above: Order Comment: Speci men Type: BLOOD SPECIMENOrdering Facility: [facility] Address: [address] [place] [address] Result Comment: Genesis mated Glomerular Filtration Rate (eGFR) is calculated using the 2020 CKD-EPI creatinine equation. This equation utilizes serum creatinine, sex, and age as parameters. The creatinine assay has traceable calibration to isotope dilution-mass spectrometry. Refer to KDIGO guidelines for clinical interpretation. In patients with unstable renal function, e.g. those with acute kidney injury, the eGFR may not accurately reflect actual GFR. Performed By: #### 2 4323-8, 6-3, 3023-09 ####[facility] LABCLIA [id number] [facility] [address] [address] [place] Glucose [Mass/Vol] 100 mg/dL High 74-99 [facility] Comment on above: Order Comment: Speci men Type: BLOOD SPECIMENOrdering Facility: [facility] Address: [address] [place] [address] Result Comment: The [place] Diabetes Association (ADA) provides guidance for cutoff values for fasting glucose and random glucose. The ADA defines fasting as no caloric intake for at least 8 hours. Fasting plasma glucose results between 100 to 125 mg/dL indicate increased risk for diabetes (prediabetes). Fasting plasma glucose results greater than or equal to 126 mg/dL meet the criteria for diagnosis of diabetes. In the absence of unequivocal hyperglycemia, results should be confirmed by repeat testing. In a patient with classic symptoms of hyperglycemia or hyperglycemic crisis, random plasma glucose results greater than or equal to 200 mg/dL meet the criteria for diagnosis of diabetes. Reference: Standards of Medical Care in Diabetes 2016, [place] Diabetes Association. Diabetes Care. 2016.39(Suppl 1). Performed By: #### 2 4323-8, 3015-3, 3023-09 ####[facility] LABCLIA [id number] [address] [address] [place] Potassium [Moles/Vol] 4.2 mmol/L Normal 3.7-5.1 [facility] Comment on above: Order Comment: Speci men Type: BLOOD SPECIMENOrdering Facility: [facility] Address: [address] [place] [address] Performed By: #### 2 4323-8, 6-3, 7 ####[facility] LABCLIA [id number] [place] [address] [place] Protein [Mass/Vol] 7.0 g/dL Normal 6.3-8.0 [facility] Comment on above: Order Comment: Speci men Type: BLOOD SPECIMENOrdering Facility: [facility] Address: [address] [place] [address] Performed By: #### 2 4323-8, 3016-3, 3023-7 ####[facility] LABCLIA [id number] [place] [address] [place] Sodium [Moles/Vol] 141 mmol/L Normal 136-144 [facility] Comment on above: Order Comment: Speci men Type: BLOOD SPECIMENOrdering Facility: [facility] Address: [address] [place] [address] Performed By: #### 2 4323-8, 3016-3, 7 ####[facility] LABCLIA [id number] [place] [address] [place] Urea nitrogen [Mass/Vol] 15 mg/dL Normal 7-21 [facility] Comment on above: Order Comment: Speci men Type: BLOOD SPECIMENOrdering Facility: [facility] Address: [address] [place] [address] Performed By: #### 2 4323-8, 3016-3, 7 ####[facility] LABCLIA [id number] [place] [address] [place] T4 Free SerPl-mCncon 024 Free T4 [Mass/Vol] 1.2 ng/dL Normal 0.9-1.7 [facility] Comment on above: Order Comment: Speci men Type: BLOOD SPECIMENOrdering Facility: [facility] Address: [address] [place] [address] Performed By: #### 2 4323-8, 3016-3, 302-7 ####[facility] LABCLIA [id number] [address] [address] [place] TSH SerPl-aCncon 04-26-2023 TSH Qn 1.310 m[IU]/L Normal 0.270-4.200 [facility] Comment on above: Order Comment: Speci men Type: BLOOD SPECIMENOrdering Facility: [facility] Address: [address] [place] [address] Performed By: #### 2 4323-8, 3016-3, 3024-7 ####[facility] LABCLIA [id number] [place] [id number] [place] CBC W Auto Differential pane l (Bld)on 03-12-2023 Basophils (Bld) [#/Vol] 0.05 10*3/uL Normal <0.11 [facility] Comment on above: Order Comment: Speci men Type: BLOOD SPECIMENOrdering Facility: [facility] Address: [address] [place] [address] Performed By: #### 5 7021-8 ####[facility] [id number] [place] [address] [place] Basophils/100 WBC (Bld) 0.7 % Normal [facility] Comment on above: Order Comment: Speci men Type: BLOOD SPECIMENOrdering Facility: [facility] Address: [address] [place] [address] Performed By: #### 5 7021-8 ####[facility] [id number] [place] [address] [place] Differential cell count method Nom (Bld) Auto Normal [facility] Comment on above: Order Comment: Speci men Type: BLOOD SPECIMENOrdering Facility: [facility] Address: [address] [place] [address] Performed By: #### 5 7021-8 ####[facility] NORTHL[facility] [id number] [place] [address] [place] Eosinophils (Bld) [#/Vol] 0.17 10*3/uL Normal <0.46 [facility] Comment on above: Order Comment: Speci men Type: BLOOD SPECIMENOrdering Facility: [facility] Address: [address] [place] [address] Performed By: #### 5 7021-8 ####[facility] [id number] [place] [address] [place] Eosinophils/100 WBC (Bld) 2.3 % Normal [facility] Comment on above: Order Comment: Speci men Type: BLOOD SPECIMENOrdering Facility: [facility] Address: [address] [place] [address] Performed By: #### 5 7021-8 ####[facility] [id number] [place] [address] [place] Erythrocyte distribution width (RBC) [Ratio] 22.3 % High 11.5-15.0 [facility] Comment on above: Order Comment: Speci men Type: BLOOD SPECIMENOrdering Facility: [facility] Address: [address] [place] [address] Performed By: #### 5 7021-8 ####[facility] [id number] [place] [address] [place] Hematocrit (Bld) [Volume fraction] 36.4 % Normal 36.0-46.0 [facility] Comment on above: Order Comment: Speci men Type: BLOOD SPECIMENOrdering Facility: [facility] Address: [address] [place] [address] Performed By: #### 5 7021-8 ####[facility] [id number] [place] [address] [place] Hemoglobin (Bld) [Mass/Vol] 10.4 g/dL Low 11.5-15.5 [facility] Comment on above: Order Comment: Speci men Type: BLOOD SPECIMENOrdering Facility: [facility] Address: [address] [place] [address] Performed By: #### 5 7021-8 ####[facility] MILLWNCLIA [id number] [place] [address] [place] Immature granulocytes (Bld) [#/Vol] 10*3/uL Normal <0.10 [facility] Comment on above: Order Comment: Speci men Type: BLOOD SPECIMENOrdering Facility: [facility] Address: [address] [place] [address] Performed By: #### 5 7021-8 ####[facility] MILLWNCLIA [id number] [place] [address] [place] Immature granulocytes/100 WBC (Bld) 0.1 % Normal [facility] Comment on above: Order Comment: Speci men Type: BLOOD SPECIMENOrdering Facility: [facility] Address: [address] [place] [address] Performed By: #### 5 7021-8 ####[facility] [id number] [place] [address] [place] Lymphocytes (Bld) [#/Vol] 1.17 10*3/uL Normal 1.00-4.00 [facility] Comment on above: Order Comment: Speci men Type: BLOOD SPECIMENOrdering Facility: [facility] Address: [address] [place] [address] Performed By: #### 5 7021-8 ####[facility] MILLTOWNCLIA [id number] [place] [address] [place] Lymphocytes/100 WBC (Bld) 15.7 % Normal [facility] Comment on above: Order Comment: Speci men Type: BLOOD SPECIMENOrdering Facility: [facility] Address: [address] [place] [address] Performed By: #### 5 7021-8 ####[facility] [id number] [place] [address] [place] MCH (RBC) [Entitic mass] 22.7 pg Low 26.0-34.0 [facility] Comment on above: Order Comment: Speci men Type: BLOOD SPECIMENOrdering Facility: [facility] Address: [address] [place] [address] Performed By: #### 5 7021-8 ####[facility] [id number] [place] [address] [place] MCHC (RBC) [Mass/Vol] 28.6 g/dL Low 30.5-36.0 [facility] Comment on above: Order Comment: Speci men Type: BLOOD SPECIMENOrdering Facility: [facility] Address: [address] [place] [address] Performed By: #### 5 7021-8 ####[facility] [id number] [place] [address] [place] MCV (RBC) [Entitic vol] 79.5 fL Low 80.0-100.0 [facility] Comment on above: Order Comment: Speci men Type: BLOOD SPECIMENOrdering Facility: [facility] Address: [address] [place] [address] Performed By: #### 5 7021-8 ####[facility] [id number] [place] [address] [place] Monocytes (Bld) [#/Vol] 0.40 10*3/uL Normal <0.87 [facility] Comment on above: Order Comment: Speci men Type: BLOOD SPECIMENOrdering Facility: [facility] Address: [address] [place] [address] Performed By: #### 5 7021-8 ####[facility] [id number] [place] [address] [place] Monocytes/100 WBC (Bld) 5.4 % Normal [facility] Comment on above: Order Comment: Speci men Type: BLOOD SPECIMENOrdering Facility: [facility] Address: [address] [place] [address] Performed By: #### 5 7021-8 ####[facility] [id number] [place] [address] [place] Neutrophils (Bld) [#/Vol] 5.65 10*3/uL Normal 1.45-7.50 [facility] Comment on above: Order Comment: Speci men Type: BLOOD SPECIMENOrdering Facility: [facility] Address: [address] [place] [address] Performed By: #### 5 7021-8 ####[facility] [id number] [place] [address] [place] Neutrophils/100 WBC (Bld) 75.8 % Normal [facility] Comment on above: Order Comment: Speci men Type: BLOOD SPECIMENOrdering Facility: [facility] Address: [address] [place] [address] Performed By: #### 5 7021-8 ####[facility] [id number] [place] [address] [place] Nucleated RBC (Bld) [#/Vol] 10*3/uL Normal <0.01 [facility] Comment on above: Order Comment: Speci men Type: BLOOD SPECIMENOrdering Facility: [facility] Address: [address] [place] [address] Performed By: #### 5 7021-8 ####[facility] [id number] [place] [address] [place] Nucleated RBC/100 WBC (Bld) [Ratio] 0.0 /100 WBC Normal [facility] Comment on above: Order Comment: Speci men Type: BLOOD SPECIMENOrdering Facility: [facility] Address: [address] [place] [address] Performed By: #### 5 7021-8 ####[facility] [id number] [place] [address] [place] Platelet mean volume (Bld) [Entitic vol] 10.2 fL Normal 9.0-12.7 [facility] Comment on above: Order Comment: Speci men Type: BLOOD SPECIMENOrdering Facility: [facility] Address: [address] [place] [address] Performed By: #### 5 7021-8 ####[facility] [id number] [place] [address] [place] Platelets (Bld) [#/Vol] 179 10*3/uL Normal 150-400 [facility] Comment on above: Order Comment: Speci men Type: BLOOD SPECIMENOrdering Facility: [facility] Address: [address] [place] [address] Result Comment: No c lot detected. Performed By: #### 5 7021-8 ####[facility] [id number] [place] [address] [place] RBC (Bld) [#/Vol] 4.58 10*6/uL Normal 3.90-5.20 [facility] Comment on above: Order Comment: Speci men Type: BLOOD SPECIMENOrdering Facility: [facility] Address: [address] [place] [address] Performed By: #### 5 7021-8 ####[facility] [id number] [place] [address] [place] WBC (Bld) [#/Vol] 7.45 10*3/uL Normal 3.70-11.00 [facility] Comment on above: Order Comment: Speci men Type: BLOOD SPECIMENOrdering Facility: [facility] Address: [address] [place] [address] Performed By: #### 5 7021-8 ####[facility] [id number] [place] [id number] [place] Ferritin SerPl-mCncon 2022 Ferritin [Mass/Vol] 103.0 ng/mL Normal 14.7-205.1 [facility] Comment on above: Order Comment: Speci men Type: BLOOD SPECIMENOrdering Facility: [facility] Address: [address] [place] [address] Performed By: #### 2 276-4, 09926-5 ####[facility] LABCLIA [id number] [place] [address] [place] Iron and Iron binding capaci ty panelon 03-12-2023 Iron [Mass/Vol] 31 ug/dL Low 41-186 [facility] Comment on above: Order Comment: Speci men Type: BLOOD SPECIMENOrdering Facility: [facility] Address: [address] [place] [address] Performed By: #### 2 276-4, 97223-7 ####[facility] LABCLIA [id number] [place] [address] [place] Iron binding capacity [Mass/Vol] 317 ug/dL Normal 232-386 [facility] Comment on above: Order Comment: Speci men Type: BLOOD SPECIMENOrdering Facility: [facility] Address: [address] [place] [address] Performed By: #### 2 276-4, 87956-7 ####[facility] LABCLIA [id number] [place] [address] [place] Iron/TIBC [Molar ratio] 9.8 % Low 15.0-57.0 [facility] Comment on above: Order Comment: Speci men Type: BLOOD SPECIMENOrdering Facility: [facility] Address: [address] [place] [address] Performed By: #### 2 276-4, 38564-8 ####[facility] LABCLIA [id number] [place] [id number] [place] CNPNon 02-04-2023 CNPN Telephone (HEMAWS) AINSLEY SORENSON ([id number]) 1935 F Date Time Provider Department 02/04/23 SARAH THORNE During your visit today, we recorded the following information about you: Sarah Thorne LISW 02/04/2023 2:12 PM Signed Pt noted on [facility] 1st time treatment report. Pt has a non-oncology regimen. No social work follow up indicated. BONIFACIO Rodrigues-S Oncology SW Allergies As of Date: 02/04/2023 Noted Allergy Reaction AUGMENTIN (AMOXICILLIN-POT CLAVUL*11/11/2012 6 - Diarrhea CIPROFLOXACIN 07/18/2010 2 - Rash LEVAQUIN (LEVOFLOXACIN) 04/24/2013 2 - Rash Comments: itching rash Date Reviewed: 01/25/2023 Reviewed by: Angel Bailey, RN - Fully Assessed Reason for Visit: 1st Time Treatment (Non-Oncology) [Other] Prescriptions as of 02/04/2023 - allopurinol (ZYLOPRIM) 100 mg tablet Take 1 tablet by mouth once daily. For gout. - levothyroxine (LEVOXYL) 50 mcg tablet Take 1 tablet by mouth once daily. Take on empty stomach. For Thyroid - ferrous sulfate 325 mg (65 mg iron) tablet Take 1 tablet by mouth daily with breakfast. - sertraline (ZOLOFT) 25 mg tablet Take 1 tablet by mouth once daily. - MEDICAL SUPPLY Blood pressure monitor weight of pt 103# - Blood Pressure Monitor (BLOOD PRESSURE KIT) 1 Each once daily. - potassium chloride ER (K-DUR, KLOR-CON) 20 mEq tablet Take 1 tablet by mouth once daily - rivastigmine tartrate (EXELON) 6 mg capsule Take 1 capsule by mouth twice daily with meals. - loperamide HCl (IMODIUM) 2 mg tab Take 2 each morning. May take another 2 later in the day, as needed. - aspirin, enteric coated (ASPIRIN, ENTERIC COATED) 81 mg EC tablet Take 1 tablet by mouth once daily. - Multivitamins-Minerals -Lutein (CENTRUM SILVER) ORAL Tab Take one(1) tablet daily. 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] 03/20/2016 Left carotid bruit [R09.89] 04/14/2017 Stage 3a chronic kidney disease (HCC) [N18.31] 05/17/2018 Recent unexplained weight loss [R63.4] 07/18/2018 Major depressive disorder with single episode, *07/18/2018 Abdominal aortic aneurysm (AAA) without rupture*07/03/2019 Chronic anxiety [F41.9] 10/16/2019 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*12/21/2019 Magnesium deficiency [E61.2] 12/21/2019 Hypokalemia [E87.6] 12/21/2019 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] 03/29/2020 Hypertensive kidney disease with stage 3a chron*06/04/2021 Iron deficiency anemia [D50.9] 01/25/2023 Encounter Status:Closed by SARAH THORNE on 02/04/23 Normal [facility] CNOVSPon 01-25-2023 CNOVSP Visit (SP) Office (HEMAWS) AINSLEY SORENSON ([id number]) 1935 F Date Time Provider Department 01/25/23 1:00 PM STU SCHAEFFER During your visit today, we recorded the following information about you: Temperature Pulse Blood pressure Weight 97.9 degrees 67/minute 165/74 49.4 kg Height 1.651 m Stu Schaeffer MD 01/25/2023 4:29 PM Signed HISTORY OF PRESENT ILLNESS: Ainsley Sorenson is a 87 year old female history of anemia, iron deficincy, likely due to GI blood loss. She has dementia, no work up of GI is planned. Labs reviewed, iron pills cause bad diarrhea, CLINICAL IMPRESSION: NEHEMIAH likely due to GI blood loss RECOMMENDATION/PLAN: 1. Plan IV iron replacement for at tleast palliation of anemia Written and verbal health teaching given to patient, patient verbalizes understanding and agrees with treatment plan. 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 CKD (chronic kidney disease), stage III (HCC) 05/17/2018 Diverticulosis of colon (without mention of hemorrhage) Essential hypertension, benign Gout attack 12/2014 R great toe Hyperlipidemia LDL goal <100 03/20/2016 Kidney stones Left carotid bruit 04/14/2017 Other symptoms involving cardiovascular system Uterovaginal prolapse PAST SURGICAL HISTORY Procedure Laterality Date COLONOSCOPY FLX DX W/COLLJ SPEC WHEN PFRMD 04/07/2012 Colonoscopy repeat 10 years DILATION AND CURETTAGE DXAND/THER NONOBSTETRIC Dilation AND curettage LAPAROSCOPIC TUBAL LIGATION/RING/CLIP FAMILY HISTORY Problem Relation Age of Onset other (cerebral hemorrhage) Mother Diabetes Father Stroke Father Social History Tobacco Use Smoking status: Former Packs/day: 0.50 Years: 20.00 Additional pack years: 0.00 Total pack years: 10.00 Types: Cigarettes Quit date: 1992 Years since quittin.8 Smokeless tobacco: Never Vaping Use Vaping Use: Never used Substance Use Topics Alcohol use: No Drug use: No ALLERGIES: ALLERGIES Allergen Reactions Augmentin [Amoxicil* Diarrhea Ciprofloxacin Rash Levaquin [Levofloxa* Rash itching rash CURRENT OUTPATIENT MEDICATIONS: allopurinol (ZYLOPRIM) 100 mg tablet Take 1 tablet by mouth once daily. For gout. levothyroxine (LEVOXYL) 50 mcg tablet Take 1 tablet by mouth once daily. Take on empty stomach. For Thyroid sertraline (ZOLOFT) 25 mg tablet Take 1 tablet by mouth once daily. rivastigmine tartrate (EXELON) 6 mg capsule Take 1 capsule by mouth twice daily with meals. loperamide HCl (IMODIUM) 2 mg tab Take 2 each morning. May take another 2 later in the day, as needed. ferrous sulfate 325 mg (65 mg iron) tablet Take 1 tablet by mouth daily with breakfast. MEDICAL SUPPLY Blood pressure monitor weight of pt 103# Blood Pressure Monitor (BLOOD PRESSURE KIT) 1 Each once daily. potassium chloride ER (K-DUR, KLOR-CON) 20 mEq tablet Take 1 tablet by mouth once daily aspirin, enteric coated (ASPIRIN, ENTERIC COATED) 81 mg EC tablet Take 1 tablet by mouth once daily. Multivitamins-Minerals -Lutein (CENTRUM SILVER) ORAL Tab Take one(1) tablet daily. REVIEW OF SYSTEMS: GENERAL: No fever, night sweats, weight loss or malaise. All other reviewed and negative other than HPI. PHYSICAL EXAMINATION: VITAL SIGNS: BP 165/74 Pulse 67 Temp (Src) 97.9 (Temporal) Ht 5' 5 (1.65m) Wt 109 lb (49.4kg) SpO2 99% BMI 18.14 kg/(m2). GENERAL APPEARANCE: Well appearing, in no acute distress, alert and oriented x3, well-hydrated, well nourished. I spent a total of 30 minutes on the date of the service which included preparing to see the patient, [id number] patient care, completing clinical documentation, obtaining and/or reviewing separately obtained history, counseling and educating the patient/family/caregiv er, ordering medications, tests, or procedures, communicating with other HCPs (not separately reported), and communicating results to the patient/family/caregiv er. Electronically Signed: Stu Schaeffer MD January 25, 2023 1:08 PM Referring Provider: ZORAN DUMONT [[id number]] Allergies As of Date: 01/25/2023 Noted Allergy Reaction AUGMENTIN (AMOXICILLIN-POT CLAVUL*11/11/2012 6 - Diarrhea CIPROFLOXACIN 07/18/2010 2 - Rash LEVAQUIN (LEVOFLOXACIN) 04/24/2013 2 - Rash Comments: itching rash Date Reviewed: 01/25/2023 Reviewed by: Angel Bailey RN - Fully Assessed Reason for Visit: New Patient Evaluation [154] Visit Diagnosis:Iron deficiency anemia, unspecified iron deficiency anemia type [D50.9] Order(s):CONSULT TO HEMATOLOGY [9014] Order #: [id number]: 1 CBC + DIFF [SQCBCDIF] Order #: [id number] STANDING FERRITIN BLD [SQFERR] Order #: [id number] STANDING IRON + TIBC [SQIRON] Order #: [id number] STANDING Follow-up and Disposition History for Encounter Date Provider Department (more content not included)... Normal [facility] CNPNon 01-06-2023 CNPN Telephone (MINNIE) AINSLEY SORENSON ([id number]) 1935 F Date Time Provider Department 01/06/23 STU SCHAEFFER During your visit today, we recorded the following information about you: Ximena Odonnell 01/06/2023 1:25 PM Signed Please review and advise. CONSULT TO HEMATOLOGY Status: Needs Scheduling Requested appt date: Authorizing: oZran Dumont PA-C in [facility] Referral: [id number] (Authorized) Expires: 01/04/2024 Priority: Routine Diagnosis: Iron deficiency anemia, unspecified iron deficiency anemia type [D50.9] Violeta Castillo LPN 01/06/2023 1:34 PM Signed Schedule with Dr. Schaeffer. Johanna Hua LPN 01/06/2023 2:32 PM Signed Spoke with patient's daughter and scheduled. Johanna Carlson Allergies As of Date: 01/06/2023 Noted Allergy Reaction AUGMENTIN (AMOXICILLIN-POT CLAVUL*11/11/2012 6 - Diarrhea CIPROFLOXACIN 07/18/2010 2 - Rash LEVAQUIN (LEVOFLOXACIN) 04/24/2013 2 - Rash Comments: itching rash Date Reviewed: 01/04/2023 Reviewed by: Rosa Hutchison - Fully Assessed Reason for Visit: New Patient [172] Prescriptions as of 01/06/2023 - allopurinol (ZYLOPRIM) 100 mg tablet Take 1 tablet by mouth once daily. For gout. - levothyroxine (LEVOXYL) 50 mcg tablet Take 1 tablet by mouth once daily. Take on empty stomach. For Thyroid - ferrous sulfate 325 mg (65 mg iron) tablet Take 1 tablet by mouth daily with breakfast. - sertraline (ZOLOFT) 25 mg tablet Take 1 tablet by mouth once daily. - MEDICAL SUPPLY Blood pressure monitor weight of pt 103# - Blood Pressure Monitor (BLOOD PRESSURE KIT) 1 Each once daily. - potassium chloride ER (K-DUR, KLOR-CON) 20 mEq tablet Take 1 tablet by mouth once daily - rivastigmine tartrate (EXELON) 6 mg capsule Take 1 capsule by mouth twice daily with meals. - loperamide HCl (IMODIUM) 2 mg tab Take 2 each morning. May take another 2 later in the day, as needed. - aspirin, enteric coated (ASPIRIN, ENTERIC COATED) 81 mg EC tablet Take 1 tablet by mouth once daily. - Multivitamins-Minerals -Lutein (CENTRUM SILVER) ORAL Tab Take one(1) tablet daily. 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] 03/20/2016 Left carotid bruit [R09.89] 04/14/2017 Stage 3a chronic kidney disease (HCC) [N18.31] 05/17/2018 Recent unexplained weight loss [R63.4] 07/18/2018 Major depressive disorder with single episode, *07/18/2018 Abdominal aortic aneurysm (AAA) without rupture*07/03/2019 Chronic anxiety [F41.9] 10/16/2019 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*12/21/2019 Magnesium deficiency [E61.2] 12/21/2019 Hypokalemia [E87.6] 12/21/2019 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] 03/29/2020 Hypertensive kidney disease with stage 3a chron*06/04/2021 Encounter Status:Closed by JOHANNA CARLSON on 01/06/23 Normal [facility] FERRITIN BLDon 01-05-2023 Ferritin [Mass/Vol] 58.2 ng/mL 14.7 - 2 05.1 ng/mL [facility] Iron and Iron binding capaci ty panelon 01-05-2023 Iron [Mass/Vol] 20 ug/dL Low 41 - 186 ug/dL [facility] Iron binding capacity [Mass/Vol] 466 ug/dL High 232 - 386 ug/dL [facility] Iron/TIBC [Molar ratio] 4.3 % Low 15.0 - 57.0 % [facility] CBC W Auto Differential pane l (Bld)on 01-04-2023 Basophils (Bld) [#/Vol] 0.09 10*3/uL <0.11 k/uL [facility] Basophils/100 WBC (Bld) 1.1 % [facility] Differential cell count method Nom (Bld) Auto [facility] Eosinophils (Bld) [#/Vol] 0.09 10*3/uL <0.46 k/uL [facility] Eosinophils/100 WBC (Bld) 1.1 % [facility] Erythrocyte distribution width (RBC) [Ratio] 21.9 % High 11.5 - 15.0 % [facility] Hematocrit (Bld) [Volume fraction] 36.5 % 36.0 - 46.0 % [facility] Hemoglobin (Bld) [Mass/Vol] 9.9 g/dL Low 11.5 - 15.5 g/dL [facility] Immature granulocytes (Bld) [#/Vol] 0.04 10*3/uL <0.10 k/uL [facility] Immature granulocytes/100 WBC (Bld) 0.5 % [facility] Lymphocytes (Bld) [#/Vol] 1.48 10*3/uL 1.00 - 4.00 k/uL [facility] Lymphocytes/100 WBC (Bld) 17.4 % [facility] MCH (RBC) [Entitic mass] 21.3 pg Low 26.0 - 34.0 pg [facility] MCHC (RBC) [Mass/Vol] 27.1 g/dL Low 30.5 - 36.0 g/dL [facility] MCV (RBC) [Entitic vol] 78.5 fL Low 80.0 - 100.0 fL [facility] Monocytes (Bld) [#/Vol] 0.55 10*3/uL <0.87 k/uL [facility] Monocytes/100 WBC (Bld) 6.4 % [facility] Neutrophils (Bld) [#/Vol] 6.28 10*3/uL 1.45 - 7.50 k/uL [facility] Neutrophils/100 WBC (Bld) 73.5 % [facility] Nucleated RBC (Bld) [#/Vol] <0.01 k/uL [facility] Nucleated RBC/100 WBC (Bld) [Ratio] 0.0 /100 WBC [facility] Platelet mean volume (Bld) [Entitic vol] [facility] Platelets (Bld) [#/Vol] 211 10*3/uL 150 - 400 k/uL [facility] RBC (Bld) [#/Vol] 4.65 10*6/uL 3.90 - 5.2 0 m/uL [facility] WBC (Bld) [#/Vol] 8.53 10*3/uL 3.70 - 11. 00 k/uL [facility] Basophils (Bld) [#/Vol] 0.09 10*3/uL Normal <0.11 [facility] Comment on above: Order Comment: Speci men Type: BLOOD SPECIMENOrdering Facility: [facility] Address: [address] [place] [address] Performed By: #### 5 7021-8 ####[facility] LABCLIA [id number] [place] [address] [place] Basophils/100 WBC (Bld) 1.1 % Normal [facility] Comment on above: Order Comment: Speci men Type: BLOOD SPECIMENOrdering Facility: [facility] Address: [address] [place] [address] Performed By: #### 5 7021-8 ####[facility] LABCLIA [id number] [place] [address] [place] Differential cell count method Nom (Bld) Auto Normal [facility] Comment on above: Order Comment: Speci men Type: BLOOD SPECIMENOrdering Facility: [facility] Address: [address] [place] [address] Performed By: #### 5 7021-8 ####[facility] LABCLIA [id number] [place] [address] [place] Eosinophils (Bld) [#/Vol] 0.09 10*3/uL Normal <0.46 [facility] Comment on above: Order Comment: Speci men Type: BLOOD SPECIMENOrdering Facility: [facility] Address: [address] [place] [address] Performed By: #### 5 7021-8 ####[facility] LABCLIA [id number] [place] [address] [place] Eosinophils/100 WBC (Bld) 1.1 % Normal [facility] Comment on above: Order Comment: Speci men Type: BLOOD SPECIMENOrdering Facility: [facility] Address: [address] [place] [address] Performed By: #### 5 7021-8 ####[facility] LABCLIA [id number] [place] [address] [place] Erythrocyte distribution width (RBC) [Ratio] 21.9 % High 11.5-15.0 [facility] Comment on above: Order Comment: Speci men Type: BLOOD SPECIMENOrdering Facility: [facility] Address: [address] [place] [address] Performed By: #### 5 7021-8 ####[facility] LABCLIA [id number] [place] [address] [place] Hematocrit (Bld) [Volume fraction] 36.5 % Normal 36.0-46.0 [facility] Comment on above: Order Comment: Speci men Type: BLOOD SPECIMENOrdering Facility: [facility] Address: [address] [place] [address] Performed By: #### 5 7021-8 ####[facility] LABCLIA [id number] [place] [address] [place] Hemoglobin (Bld) [Mass/Vol] 9.9 g/dL Low 11.5-15.5 [facility] Comment on above: Order Comment: Speci men Type: BLOOD SPECIMENOrdering Facility: [facility] Address: [address] [place] [address] Performed By: #### 5 7021-8 ####[facility] LABIA [id number] [place] [address] [place] Immature granulocytes (Bld) [#/Vol] 0.04 10*3/uL Normal <0.10 [facility] Comment on above: Order Comment: Speci men Type: BLOOD SPECIMENOrdering Facility: [facility] Address: [address] [place] [address] Performed By: #### 5 7021-8 ####[facility] LABCLIA [id number] [place] [address] [place] Immature granulocytes/100 WBC (Bld) 0.5 % Normal [facility] Comment on above: Order Comment: Speci men Type: BLOOD SPECIMENOrdering Facility: [facility] Address: [address] [place] [address] Performed By: #### 5 7021-8 ####[facility] LABCLIA [id number] [place] [address] [place] Lymphocytes (Bld) [#/Vol] 1.48 10*3/uL Normal 1.00-4.00 [facility] Comment on above: Order Comment: Speci men Type: BLOOD SPECIMENOrdering Facility: [facility] Address: [address] [place] [address] Performed By: #### 5 7021-8 ####[facility] LABCLIA [id number] [place] [address] [place] Lymphocytes/100 WBC (Bld) 17.4 % Normal [facility] Comment on above: Order Comment: Speci men Type: BLOOD SPECIMENOrdering Facility: [facility] Address: [address] [place] [address] Performed By: #### 5 7021-8 ####[facility] LABIA [id number] [place] [address] [place] MCH (RBC) [Entitic mass] 21.3 pg Low 26.0-34.0 [facility] Comment on above: Order Comment: Speci men Type: BLOOD SPECIMENOrdering Facility: [facility] Address: [address] [place] [address] Performed By: #### 5 7021-8 ####[facility] LABIA [id number] [place] [address] [place] DARIN MCHC (RBC) [Mass/Vol] 27.1 g/dL Low 30.5-36.0 [facility] Comment on above: Order Comment: Speci men Type: BLOOD SPECIMENOrdering Facility: [facility] Address: [address] [place] [address] Performed By: #### 5 7021-8 ####[facility] LABIA [id number] [place] [address] [place] MCV (RBC) [Entitic vol] 78.5 fL Low 80.0-100.0 [facility] Comment on above: Order Comment: Speci men Type: BLOOD SPECIMENOrdering Facility: [facility] Address: [address] [place] [address] Performed By: #### 5 7021-8 ####[facility] LABCLIA [id number] [place] [address] [place] Monocytes (Bld) [#/Vol] 0.55 10*3/uL Normal <0.87 [facility] Comment on above: Order Comment: Speci men Type: BLOOD SPECIMENOrdering Facility: [facility] Address: [address] [place] [address] Performed By: #### 5 7021-8 ####[facility] LABCLIA [id number] [place] [address] [place] Monocytes/100 WBC (Bld) 6.4 % Normal [facility] Comment on above: Order Comment: Speci men Type: BLOOD SPECIMENOrdering Facility: [facility] Address: [address] [place] [address] Performed By: #### 5 7021-8 ####[facility] LABCLIA [id number] [place] [address] [place] Neutrophils (Bld) [#/Vol] 6.28 10*3/uL Normal 1.45-7.50 [facility] Comment on above: Order Comment: Speci men Type: BLOOD SPECIMENOrdering Facility: [facility] Address: [address] [place] [address] Performed By: #### 5 7021-8 ####[facility] LABCLIA [id number] [place] [address] [place] Neutrophils/100 WBC (Bld) 73.5 % Normal [facility] Comment on above: Order Comment: Speci men Type: BLOOD SPECIMENOrdering Facility: [facility] Address: [address] [place] [address] Performed By: #### 5 7021-8 ####[facility] LABCLIA [id number] [place] [address] [place] Nucleated RBC (Bld) [#/Vol] 10*3/uL Normal <0.01 [facility] Comment on above: Order Comment: Speci men Type: BLOOD SPECIMENOrdering Facility: [facility] Address: [address] [place] [address] Performed By: #### 5 7021-8 ####[facility] LABCLIA [id number] [place] [address] [place] Nucleated RBC/100 WBC (Bld) [Ratio] 0.0 /100 WBC Normal [facility] Comment on above: Order Comment: Speci men Type: BLOOD SPECIMENOrdering Facility: [facility] Address: [address] [place] [address] Performed By: #### 5 7021-8 ####[facility] LABIA [id number] [place] [address] [place] Platelet mean volume (Bld) [Entitic vol] Normal [facility] Comment on above: Order Comment: Speci men Type: BLOOD SPECIMENOrdering Facility: [facility] Address: [address] [place] [address] Result Comment: Unab le to Report. Performed By: #### 5 7021-8 ####[facility] LABIA [id number] [place] [address] [place] Platelets (Bld) [#/Vol] 211 10*3/uL Normal 150-400 [facility] Comment on above: Order Comment: Speci men Type: BLOOD SPECIMENOrdering Facility: [facility] Address: [address] [place] [address] Result Comment: Resu lts checked and verified.No clot detected. Performed By: #### 5 7021-8 ####[facility] LABCLIA [id number] [place] [address] [place] RBC (Bld) [#/Vol] 4.65 10*6/uL Normal 3.90-5.20 [facility] Comment on above: Order Comment: Speci men Type: BLOOD SPECIMENOrdering Facility: [facility] Address: [place] [address] Performed By: #### 5 7021-8 ####[facility] LABIA [id number] [place] [address] [place] WBC (Bld) [#/Vol] 8.53 10*3/uL Normal 3.70-11.00 [facility] Comment on above: Order Comment: Speci men Type: BLOOD SPECIMENOrdering Facility: [facility] Address: [place] [address] Performed By: #### 5 7021-8 ####[facility] LABCLIA [id number] [place] [address] [place] CNOVon 01-04-2023 CNOV Office Visit (INTMWS ) AINSLEY SORENSON ([id number]) 1935 F Date Time Provider Department 01/04/23 12:20 PM ZORAN DUMONT INTMWS During your visit today, we recorded the following information about you: Temperature Pulse Respiration Blood pressure 97.2 degrees 80/minute 12/minute 102/52 Weight Height 46.3 kg 1.676 m Zoran Dumont PA-C 01/05/2023 12:20 PM Signed CC: Patient presents with: Follow Up: labs,urine,confusion Immunizations: Flu vaccination HPI Ainsley Kirk Delta is a 87 year old female who presents today with daughter, Jillian, for 6 wk f/u regarding anemia. This daughter who takes her to all her appts, has to drive in from [place] and states it's a lot every time she has a doctor's appt. PMH significant for Alzheimer's- she was diagnosed ~3.5 years ago. Pt typically lives alone, but lives across the [address] from her other daughter, Paige, who serves as her primary caregiver. LV was on 11/13/22. At prior visit labs were ordered to check up on status of anemia/Hgb following- pt was referred to GI d/t concern for probable blood loss in the GI tract. Daughter reports that they didn't go through with GI referral, as they didn't suspect she would do well with colonoscopy, or additional work-up regarding this. From HPI prior visit on 11/13/22: Patient was last evaluated in office on 08/21/2022. At that time labs were ordered, but were not obtained until 11/09/2022. On those labs, hemoglobin was 5.5. Patient was completely asymptomatic, so she presented for transfusion (2 units) on 11/11/2022. Urine was also checked at previous visit due to acutely worse confusion. Urine culture came back as positive for borderline UTI so we went ahead and txed her with Keflex. Acute confusion improved. Patient is back on iron tablets (started after prior visit), and she has been taking them consistently but starting to have diarrhea and subsequent accidents, so they have since tapered back to one iron every other day. REVIEW OF SYSTEMS Denies any palpitations, CP, SOB, palpitations, lightheadedness or other associated sx. All other systems negative. 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 CKD (chronic kidney disease), stage III (HCC) 05/17/2018 Diverticulosis of colon (without mention of hemorrhage) Essential hypertension, benign Gout attack 12/2014 R great toe Hyperlipidemia LDL goal <100 03/20/2016 Kidney stones Left carotid bruit 04/14/2017 Other symptoms involving cardiovascular system Uterovaginal prolapse PAST SURGICAL HISTORY Procedure Laterality Date COLONOSCOPY FLX DX W/COLLJ SPEC WHEN PFRMD 04/07/2012 Colonoscopy repeat 10 years DILATION AND CURETTAGE DXAND/THER NONOBSTETRIC Dilation AND curettage LAPAROSCOPIC TUBAL LIGATION/RING/CLIP ALLERGIES Augmentin [Amoxicillin-Pot Clavulanate], Ciprofloxacin, and Levaquin [Levofloxacin] MEDICATIONS allopurinol (ZYLOPRIM) 100 mg tablet Take 1 tablet by mouth once daily. For gout. aspirin, enteric coated (ASPIRIN, ENTERIC COATED) 81 mg EC tablet Take 1 tablet by mouth once daily. Blood Pressure Monitor (BLOOD PRESSURE KIT) 1 Each once daily. ferrous sulfate 325 mg (65 mg iron) tablet Take 1 tablet by mouth daily with breakfast. levothyroxine (LEVOXYL) 50 mcg tablet Take 1 tablet by mouth once daily. Take on empty stomach. For Thyroid loperamide HCl (IMODIUM) 2 mg tab Take 2 each morning. May take another 2 later in the day, as needed. MEDICAL SUPPLY Blood pressure monitor weight of pt 103# Multivitamins-Minerals -Lutein (CENTRUM SILVER) ORAL Tab Take one(1) tablet daily. potassium chloride ER (K-DUR, KLOR-CON) 20 mEq tablet Take 1 tablet by mouth once daily rivastigmine tartrate (EXELON) 6 mg capsule Take 1 capsule by mouth twice daily with meals. sertraline (ZOLOFT) 25 mg tablet Take 1 tablet by mouth once daily. FAMILY HISTORY Problem Relation Age of Onset other (cerebral hemorrhage) Mother Diabetes Father Stroke Father Social History Tobacco Use Smoking status: Former Smokeless tobacco: Never Vaping Use Vaping Use: Never used Substance Use Topics Alcohol use: No Drug use: No PHYSICAL EXAM BP 102/52 (BP Site: Right Arm, BP Position: Sitting, BP Cuff Size: Regular Adult) Pulse 80 Temp 36.2 ?C (97.2 ?F) Resp 12 Ht 167.6 cm (5' 6 ) Wt 46.3 kg (102 lb) SpO2 100% BMI 16.46 kg/m? General Appearance: well appearing, in no acute distress, alert, very thin, pleasant Psych: mood and affect broad and appropriate Skin: Skin color, texture, turgor normal for age Lungs: Lungs clear to auscultation. No wheezing, rhonchi, rales. Heart: RRR without murmur, gallop, or rubs. Extremities: No gross deformities, significant edema, skin discoloration, clubbing or cyanosis. Neurological: Gait normal. No focal neurologic (more content not included)... Normal [facility] Angelo 01-04-2023 [facility] Telephone (FAMPWS) AINSLEY SORENSON ([id number]) 1935 F Date Time Provider Department 01/04/23 MING MCKNIGHT During your visit today, we recorded the following information about you: Pavithra Nieves 01/04/2023 1:30 PM Signed Pt's provider would like pt to see Hematology. Due to anemia, iron deficiency. Zoran Dumont Please advise? Ximena Odonnell 01/04/2023 3:23 PM Signed Please review and advise. CONSULT TO HEMATOLOGY Status: Needs Scheduling Requested appt date: Authorizing: Zoran Dumont PA-C in [facility] Referral: [id number] (Authorized) Expires: 01/04/2024 Priority: Routine Diagnosis: Iron deficiency anemia, unspecified iron deficiency anemia type [D50.9] Comments Alexandra Michel RN 01/04/2023 4:31 PM Signed OK to schedule with first available. KEYONNA Bull Stephanie 01/05/2023 8:52 AM Signed LM for a return call. When she calls, please schedule first available JIG FITTER re: anemia that works for the patient. Maryjane Palmer 01/07/2023 10:23 AM Signed Pt scheduled by another PSS Allergies As of Date: 01/04/2023 Noted Allergy Reaction AUGMENTIN (AMOXICILLIN-POT CLAVUL*11/11/2012 6 - Diarrhea CIPROFLOXACIN 07/18/2010 2 - Rash LEVAQUIN (LEVOFLOXACIN) 04/24/2013 2 - Rash Comments: itching rash Date Reviewed: 01/04/2023 Reviewed by: Rosa Hutchison - Fully Assessed Reason for Visit: Orders [681] Prescriptions as of 01/07/2023 - allopurinol (ZYLOPRIM) 100 mg tablet Take 1 tablet by mouth once daily. For gout. - levothyroxine (LEVOXYL) 50 mcg tablet Take 1 tablet by mouth once daily. Take on empty stomach. For Thyroid - ferrous sulfate 325 mg (65 mg iron) tablet Take 1 tablet by mouth daily with breakfast. - sertraline (ZOLOFT) 25 mg tablet Take 1 tablet by mouth once daily. - MEDICAL SUPPLY Blood pressure monitor weight of pt 103# - Blood Pressure Monitor (BLOOD PRESSURE KIT) 1 Each once daily. - potassium chloride ER (K-DUR, KLOR-CON) 20 mEq tablet Take 1 tablet by mouth once daily - rivastigmine tartrate (EXELON) 6 mg capsule Take 1 capsule by mouth twice daily with meals. - loperamide HCl (IMODIUM) 2 mg tab Take 2 each morning. May take another 2 later in the day, as needed. - aspirin, enteric coated (ASPIRIN, ENTERIC COATED) 81 mg EC tablet Take 1 tablet by mouth once daily. - Multivitamins-Minerals -Lutein (CENTRUM SILVER) ORAL Tab Take one(1) tablet daily. 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 Left carotid bruit [R09.89] 04/14/2017 Stage 3a chronic kidney disease (HCC) [N18.31] 05/17/2018 Recent unexplained weight loss [R63.4] 07/18/2018 Major depressive disorder with single episode, *07/18/2018 Abdominal aortic aneurysm (AAA) without rupture*07/03/2019 Chronic anxiety [F41.9] 10/16/2019 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*12/21/2019 Magnesium deficiency [E61.2] 12/21/2019 Hypokalemia [E87.6] 12/21/2019 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] 03/29/2020 Hypertensive kidney disease with stage 3a chron*06/04/2021 Encounter Status:Closed by MARYJANE VINES on 01/07/23 Normal [facility] Ferritin SerPl-mCncon 2022 Ferritin [Mass/Vol] 58.2 ng/mL Normal 14.7-205.1 [facility] Comment on above: Order Comment: Speci men Type: BLOOD SPECIMENOrdering Facility: [facility] Address: [address] [place] [address] Performed By: #### 5 0190-8, 6-4 ####[facility] LABCLIA [id number] [place] [address] [place] Iron and Iron binding capaci ty panelon 01-04-2023 Iron [Mass/Vol] 20 ug/dL Low 41-186 [facility] Comment on above: Order Comment: Speci men Type: BLOOD SPECIMENOrdering Facility: [facility] Address: [address] [place] [address] Performed By: #### 5 0190-8, 2275-4 ####[facility] LABCLIA [id number] [place] [address] [place] Iron binding capacity [Mass/Vol] 466 ug/dL High 232-386 [facility] Comment on above: Order Comment: Speci men Type: BLOOD SPECIMENOrdering Facility: [facility] Address: [address] [place] [address] Performed By: #### 5 0190-8, 2275-06 ####[facility] LABCLIA [id number] [place] [address] [place] Iron/TIBC [Molar ratio] 4.3 % Low 15.0-57.0 [facility] Comment on above: Order Comment: Speci men Type: BLOOD SPECIMENOrdering Facility: [facility] Address: [address] [place] [address] Performed By: #### 5 0190-8, 2275- ####[facility] LABCLIA [id number] [place] [address] [place] CBC W Auto Differential pane l (Bld)on 11-13-2022 Basophils (Bld) [#/Vol] 0.05 10*3/uL <0.11 k/uL [facility] Basophils/100 WBC (Bld) 0.5 % [facility] Differential cell count method Nom (Bld) Auto [facility] Eosinophils (Bld) [#/Vol] <0.46 k/uL [facility] Eosinophils/100 WBC (Bld) 0.1 % [facility] Erythrocyte distribution width (RBC) [Ratio] 24.2 % High 11.5 - 15.0 % [facility] Hematocrit (Bld) [Volume fraction] 31.8 % Low 36.0 - 46.0 % [facility] Hemoglobin (Bld) [Mass/Vol] 9.0 g/dL Low 11.5 - 15.5 g/dL [facility] Immature granulocytes (Bld) [#/Vol] 0.05 10*3/uL <0.10 k/uL [facility] Immature granulocytes/100 WBC (Bld) 0.5 % [facility] Lymphocytes (Bld) [#/Vol] 0.81 10*3/uL Low 1.00 - 4.00 k/uL [facility] Lymphocytes/100 WBC (Bld) 7.9 % [facility] MCH (RBC) [Entitic mass] 19.7 pg Low 26.0 - 34.0 pg [facility] MCHC (RBC) [Mass/Vol] 28.3 g/dL Low 30.5 - 36.0 g/dL [facility] MCV (RBC) [Entitic vol] 69.6 fL Low 80.0 - 100.0 fL [facility] Monocytes (Bld) [#/Vol] 0.88 10*3/uL High <0.87 k/uL [facility] Monocytes/100 WBC (Bld) 8.6 % [facility] Neutrophils (Bld) [#/Vol] 8.40 10*3/uL High 1.45 - 7.50 k/uL [facility] Neutrophils/100 WBC (Bld) 82.4 % [facility] Nucleated RBC (Bld) [#/Vol] <0.01 k/uL [facility] Nucleated RBC/100 WBC (Bld) [Ratio] 0.0 /100 WBC [facility] Platelet mean volume (Bld) [Entitic vol] [facility] Platelets (Bld) [#/Vol] 172 10*3/uL 150 - 400 k/uL [facility] RBC (Bld) [#/Vol] 4.57 10*6/uL 3.90 - 5.2 0 m/uL [facility] WBC (Bld) [#/Vol] 10.20 10*3/uL 3.70 - 11 .00 k/uL [facility] XR Radius and Ulna - right A P and Lateralon 05-16-2021 IMPRESSION: No acute fractures demonstrated in the right radius or right ulna. There is mild soft tissue prominence in the mid forearm. Process Controller: [facility] Transcribe Date/Time: May 16 2021 1:42P Dictated by : MEHREEN AYERS MD This examination was interpreted and the report reviewed and electronically signed by: MEHREEN AYERS MD on May 16 2021 1:45PM [facility] DIVISION OF RADIOLOGY * * *Final Report* * * DATE OF EXAM: May 16 2021 1:29PM WOX [id number] - XR FOREARM 2V AP/LAT RT / PROCEDURE REASON: Injury of right forearm, initial encounter * * * * Physician Interpretation * * * * EXAM TITLE: XR FOREARM 2V AP/LAT RT EXAM DATE/TIME: 05/16/2021 1:29 PM COMPARISON: None. CLINICAL INDICATION/HISTORY: Fall. TECHNIQUE: AP and lateral views of the right radius and ulna are presented. FINDINGS AND DIVISION OF RADIOLOGY Provider, [facility] - 05/16/2021 * * *Final Report* * * DATE OF EXAM: May 16 2021 1:29PM WOX [id number] - XR FOREARM 2V AP/LAT RT / PROCEDURE REASON: Injury of right forearm, initial encounter * * * * Physician Interpretation * * * * EXAM TITLE: XR FOREARM 2V AP/LAT RT EXAM DATE/TIME: 05/16/2021 1:29 PM COMPARISON: None. CLINICAL INDICATION/HISTORY: Fall. TECHNIQUE: AP and lateral views of the right radius and ulna are presented. FINDINGS AND IMPRESSION IMPRESSION: No acute fractures demonstrated in the right radius or right ulna. There is mild soft tissue prominence in the mid forearm. Process Controller: [employer] Transcribe Date/Time: May 16 2021 1:42P Dictated by : MEHREEN AYERS MD This examination was interpreted and the report reviewed and electronically signed by: MEHREEN AYERS MD on May 16 2021 1:45PM EST [facility] Radiology Study observation (narrative) [facility] XR Radius and Ulna - right A P and LateralOrdered By: [facility] Provider on 05-16-2021 [facility] Vital Signs Date Time Vital Sign Value Performing Clinician Faci lity 12-10-2023 13:59-0400 Body mass index (BMI) [Ratio] 17.35 kg/m2 Shonda Older CHAIN SAW DRIVER.CLINICAL AUDIOLOGIST Work Phone: [facility] 12-10-2023 13:59-0400 Body weight 47.3 kg Shonda Older CH[employer] SAW DRIVER.CLINICAL AUDIOLOGIST Work Phone: [facility] 12-10-2023 13:59-0400 Diastolic blood pressure 74 mm[Hg] Shonda Older CHAIN SAW DRIVER.CLINICAL AUDIOLOGIST Work Phone: [facility] 12-10-2023 13:59-0400 Heart rate 68 /min Shonda Older CHAIN SAW DRIVER.CLINICAL AUDIOLOGIST Work Phone: [facility] 12-10-2023 13:59-0400 SaO2% (BldA) [Mass fraction] 100 % Hsonda Older CHAIN SAW DRIVER.CLINICAL AUDIOLOGIST Work Phone: [facility] 12-10-2023 13:59-0400 Systolic blood pressure 128 mm[Hg] Shonda Older CHAIN SAW DRIVER.CLINICAL AUDIOLOGIST Work Phone: [facility] 08-13-2023 13:31-0400 Body mass index (BMI) [Ratio] 18.6 kg/m2 Shonda Older CHAIN SAW DRIVER.CLINICAL AUDIOLOGIST Work Phone: [facility] 08-13-2023 13:31-0400 Body weight 50.71 kg Shonda Older CHAIN SAW DRIVER.CLINICAL AUDIOLOGIST Work Phone: [facility] 08-13-2023 13:31-0400 Diastolic blood pressure 66 mm[Hg] Shonda Older CHAIN SAW DRIVER.CLINICAL AUDIOLOGIST Work Phone: [facility] 08-13-2023 13:31-0400 Heart rate 85 /min Shonda Older CHAIN SAW DRIVER.CLINICAL AUDIOLOGIST Work Phone: [facility] 08-13-2023 13:31-0400 SaO2% (BldA) [Mass fraction] 96 % Shonda Older CHAIN SAW DRIVER.CLINICAL AUDIOLOGIST Work Phone: [facility] 08-13-2023 13:31-0400 Systolic blood pressure 122 mm[Hg] Shonda Older CHAIN SAW DRIVER.CLINICAL AUDIOLOGIST Work Phone: [facility] 04-26-2023 13:13-0500 Body weight 48.99 kg Shonda Older CHAIN SAW DRIVER.CLINICAL AUDIOLOGIST Work Phone: [facility] 04-26-2023 13:13-0500 Diastolic blood pressure 70 mm[Hg] Shonda Older CHAIN SAW DRIVER.CLINICAL AUDIOLOGIST Work Phone: [facility] 04-26-2023 13:13-0500 Heart rate 72 /min Shonda Older CHAIN SAW DRIVER.CLINICAL AUDIOLOGIST Work Phone: [facility] 04-26-2023 13:13-0500 Respiratory rate 16 /min Shonda Older CHAIN SAW DRIVER.CLINICAL AUDIOLOGIST Work Phone: [facility] 04-26-2023 13:13-0500 Systolic blood pressure 128 mm[Hg] Shonda Older CHAIN SAW DRIVER.CLINICAL AUDIOLOGIST Work Phone: [facility] 02-26-2023 13:00-0500 Body temperature 97.59 [degF] Treatment Wstr Work Phone: [facility] 02-26-2023 13:00-0500 Diastolic blood pressure 70 mm[Hg] Treatment Wstr Work Phone: [facility] 02-26-2023 13:00-0500 Heart rate 81 /min Treatment Wstr Work Phone: [facility] 02-26-2023 13:00-0500 Systolic blood pressure 137 mm[Hg] Treatment Wstr Work Phone: [facility] 02-05-2023 13:33-0500 Body temperature 97.39 [degF] Treatment Wstr Work Phone: [facility] 02-05-2023 13:33-0500 Diastolic blood pressure 81 mm[Hg] Treatment Wstr Work Phone: [facility] 02-05-2023 13:33-0500 Heart rate 85 /min Treatment Wstr Work Phone: [facility] 02-05-2023 13:33-0500 Respiratory rate 18 /min Treatment Wstr Work Phone: [facility] 02-05-2023 13:33-0500 SaO2% (BldA) [Mass fraction] 97 % Treatment Wstr Work Phone: [facility] 02-05-2023 13:33-0500 Systolic blood pressure 118 mm[Hg] Treatment Wstr Work Phone: [facility] 01-25-2023 12:52-0500 Body height 165.1 cm Stu Schaeffer MD Work Phone: [facility] 01-25-2023 12:52-0500 Body temperature 97.9 [degF] Stu Schaeffer MD Work Phone: [facility] 01-25-2023 12:52-0500 Body weight 49.44 kg Stu Schaeffer MD Work Phone: [facility] 01-25-2023 12:52-0500 Diastolic blood pressure 74 mm[Hg] Stu Schaeffer MD Work Phone: [facility] 01-25-2023 12:52-0500 Heart rate 67 /min Stu Schaeffer MD Work Phone: [facility] 01-25-2023 12:52-0500 SaO2% (BldA) [Mass fraction] 99 % Stu Schaeffer MD Work Phone: [facility] 01-25-2023 12:52-0500 Systolic blood pressure 165 mm[Hg] Stu Schaeffer MD Work Phone: [facility] 01-04-2023 12:16-0400 Body height 167.6 cm Zoran Dumont PA-C Work Phone: [facility] 01-04-2023 12:16-0400 Body temperature 97.2 [degF] Zoran Denbow PA-C Work Phone: [facility] 01-04-2023 12:16-0400 Body weight 46.27 kg Zoran Denbow PA-C Work Phone: [facility] 01-04-2023 12:16-0400 Diastolic blood pressure 52 mm[Hg] Zoran Denbow PA-C Work Phone: [facility] 01-04-2023 12:16-0400 Heart rate 80 /min Zoran Denbow PA-C Work Phone: [facility] 01-04-2023 12:16-0400 Respiratory rate 12 /min Zoran Denbow PA-C Work Phone: [facility] 01-04-2023 12:16-0400 SaO2% (BldA) [Mass fraction] 100 % Zoran Denbow PA-C Work Phone: [facility] 01-04-2023 12:16-0400 Systolic blood pressure 102 mm[Hg] Zoran Denbow PA-C Work Phone: [facility] 11-13-2022 12:52-0400 Body height 167.6 cm Zoran Denbow PA-C Work Phone: [facility] 11-13-2022 12:52-0400 Body temperature 98.01 [degF] Zoran Denbow PA-C Work Phone: [facility] 11-13-2022 12:52-0400 Body weight 44.91 kg Zoran Denbow PA-C Work Phone: [facility] 11-13-2022 12:52-0400 Diastolic blood pressure 70 mm[Hg] Zoran Denbow PA-C Work Phone: [facility] 11-13-2022 12:52-0400 Heart rate 84 /min Zoran Denbow PA-C Work Phone: [facility] 11-13-2022 12:52-0400 Respiratory rate 12 /min Zoran Denbow PA-C Work Phone: [facility] 11-13-2022 12:52-0400 SaO2% (BldA) [Mass fraction] 98 % Zoran VALENTE-Immanuel Work Phone: [facility] 11-13-2022 12:52-0400 Systolic blood pressure 140 mm[Hg] Zoran Dumont PA-C Work Phone: [facility] 08-21-2022 14:20-0400 Body temperature 98.8 [degF] Shonda Older CHAIN SAW DRIVER.CLINICAL AUDIOLOGIST Work Phone: [facility] 08-21-2022 14:20-0400 Body weight 45.36 kg Shonda Older CHAIN SAW DRIVER.CLINICAL AUDIOLOGIST Work Phone: [facility] 08-21-2022 14:20-0400 Diastolic blood pressure 52 mm[Hg] Shonda Older CHAIN SAW DRIVER.CLINICAL AUDIOLOGIST Work Phone: [facility] 08-21-2022 14:20-0400 Heart rate 72 /min Shonda Older CHAIN SAW DRIVER.CLINICAL AUDIOLOGIST Work Phone: [facility] 08-21-2022 14:20-0400 Respiratory rate 16 /min Shonda Older CHAIN SAW DRIVER.CLINICAL AUDIOLOGIST Work Phone: [facility] 08-21-2022 14:20-0400 SaO2% (BldA) [Mass fraction] 99 % Shonda Older CHAIN SAW DRIVER.CLINICAL AUDIOLOGIST Work Phone: [facility] 08-21-2022 14:20-0400 Systolic blood pressure 132 mm[Hg] Shonda Older CHAIN SAW DRIVER.CLINICAL AUDIOLOGIST Work Phone: [facility] 05-29-2022 16:22-0500 Body height 167.6 cm Ming Mcknight MD Work Phone: [facility] 05-29-2022 16:22-0500 Body temperature 97.39 [degF] Ming Mcknight MD Work Phone: [facility] 05-29-2022 16:22-0500 Body weight 46.72 kg Ming Mcknight MD Work Phone: [facility] 05-29-2022 16:22-0500 Diastolic blood pressure 42 mm[Hg] Ming Mcknight MD Work Phone: [facility] 05-29-2022 16:22-0500 Heart rate 83 /min Ming Mcknight MD Work Phone: [facility] 05-29-2022 16:22-0500 Respiratory rate 12 /min Ming Mcknight MD Work Phone: [facility] 05-29-2022 16:22-0500 SaO2% (BldA) [Mass fraction] 99 % Ming Mcknight MD Work Phone: [facility] 05-29-2022 16:22-0500 Systolic blood pressure 98 mm[Hg] Ming Mcknight MD Work Phone: [facility] 01-30-2022 10:54-0500 Body weight 45.36 kg Mindy Mancia MD Work Phone: [facility] 01-30-2022 10:54-0500 Diastolic blood pressure 56 mm[Hg] Mindy Mancia MD Work Phone: [facility] 01-30-2022 10:54-0500 Systolic blood pressure 94 mm[Hg] Mindy Mancia MD Work Phone: [facility] 01-23-2022 14:24-0400 Body weight 45.81 kg Shonda Older CHAIN SAW DRIVER.CLINICAL AUDIOLOGIST Work Phone: [facility] 01-23-2022 14:24-0400 Diastolic blood pressure 68 mm[Hg] Shonda Older CHAIN SAW DRIVER.CLINICAL AUDIOLOGIST Work Phone: [facility] 01-23-2022 14:24-0400 Heart rate 64 /min Shonda Older CHAIN SAW DRIVER.CLINICAL AUDIOLOGIST Work Phone: [facility] 01-23-2022 14:24-0400 Respiratory rate 16 /min Shonda Older CHAIN SAW DRIVER.CLINICAL AUDIOLOGIST Work Phone: [facility] 01-23-2022 14:24-0400 Systolic blood pressure 118 mm[Hg] Shonda Older CHAIN SAW DRIVER.CLINICAL AUDIOLOGIST Work Phone: [facility] 11-28-2021 16:10-0400 Body height 167.6 cm Ming Mcknight MD Work Phone: [facility] 11-28-2021 16:10-0400 Body temperature 98.71 [degF] Ming Mcknight MD Work Phone: [facility] 11-28-2021 16:10-0400 Body weight 47.17 kg Ming Mcknight MD Work Phone: [facility] 11-28-2021 16:10-0400 Diastolic blood pressure 70 mm[Hg] Ming Mcknight MD Work Phone: [facility] 11-28-2021 16:10-0400 Heart rate 74 /min Ming Mcknight MD Work Phone: [facility] 11-28-2021 16:10-0400 Respiratory rate 12 /min Ming Mcknight MD Work Phone: [facility] 11-28-2021 16:10-0400 SaO2% (BldA) [Mass fraction] 96 % Ming Mcknight MD Work Phone: [facility] 11-28-2021 16:10-0400 Systolic blood pressure 120 mm[Hg] Ming Mcknight MD Work Phone: [facility] 11-26-2021 18:01-0400 Body temperature 97.39 [degF] Neela Athy PA-C Work Phone: [facility] 11-26-2021 18:01-0400 Body weight 48.08 kg Neela Athy PA-C Work Phone: [facility] 11-26-2021 18:01-0400 Diastolic blood pressure 90 mm[Hg] Neela Athy PA-C Work Phone: [facility] 11-26-2021 18:01-0400 Heart rate 82 /min Neela Athy PA-C Work Phone: [facility] 11-26-2021 18:01-0400 Respiratory rate 21 /min Neela Athy PA-C Work Phone: [facility] 11-26-2021 18:01-0400 SaO2% (BldA) [Mass fraction] 98 % Neela Oneill PA-C Work Phone: [facility] 11-26-2021 18:01-0400 Systolic blood pressure 180 mm[Hg] Neela Oneill PA-C Work Phone: [facility] 07-25-2021 15:37-0400 Body weight 43.55 kg Mindy Mancia MD Work Phone: [facility] 07-25-2021 15:37-0400 Diastolic blood pressure 62 mm[Hg] Mindy Mancia MD Work Phone: [facility] 07-25-2021 15:37-0400 Systolic blood pressure 110 mm[Hg] Mindy Mancia MD Work Phone: [facility] Encounters Encounter Date Encounter Type Care Provider Facility Start: 12-24-2023 End: 12-24-2023 Telephone encounter Ming Mcknight MD Work Phone: [facility] Comment on above: Results Start: 12-17-2023 End: 12-17-2023 ambulatory MING MCKNIGHT Facility:[facility] Start: 12-14-2023 End: 12-14-2023 Telephone encounter Ming Mcknight MD Work Phone: [facility] Comment on above: Patient Update Start: 12-13-2023 End: 12-13-2023 Telephone encounter Shonda Tyler APRN.CLINICAL AUDIOLOGIST Work Phone: [facility] Comment on above: Results Start: 12-10-2023 End: 12-10-2023 ambulatory SHONDA TYLER Facility:[facility] Start: 12-10-2023 End: 12-10-2023 Patient encounter procedure Shonda Tyler APRN.CLINICAL AUDIOLOGIST Work Phone: [facility] Comment on above: Unsteady gait (Prima ry Dx); Tremor of both hands; 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); Hypothyroidism, unspecified type; Hypertensive kidney disease with stage 3a chronic kidney disease (HCC); Stage 3a chronic kidney disease (HCC) Start: 10-04-2023 Refill Ming Berger Work Phone: [facility] Comment on above: Refill Request Start: 09-24-2023 Telephone encounter Krystal Cobb CHAIN SAW DRIVER.CLINICAL AUDIOLOGIST Work Phone: [facility] Comment on above: Results Start: 09-22-2023 Telephone encounter Shonda Older CHAIN SAW DRIVER.CLINICAL AUDIOLOGIST Work Phone: [facility] Start: 09-21-2023 End: 09-21-2023 [facility] Facility:[facility] Start: 08-18-2023 Telephone encounter Shonda Older CHAIN SAW DRIVER.CLINICAL AUDIOLOGIST Work Phone: [facility] Comment on above: Results Start: 08-13-2023 End: 08-13-2023 Patient encounter procedure Shonda Older CHAIN SAW DRIVER.CLINICAL AUDIOLOGIST Work Phone: [facility] Comment on above: Recent urinary tract infection (Primary Dx); Leukocytes in urine; 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); Diarrhea, unspecified type Refill Request Start: 08-13-2023 End: 08-13-2023 [facility] Facility:[facility] Start: 06-09-2023 Refill Shonda Older CHAIN SAW DRIVER .CLINICAL AUDIOLOGIST Work Phone: [facility] Comment on above: Refill Request Start: 04-29-2023 Telephone encounter Shonda Older CHAIN SAW DRIVER.CLINICAL AUDIOLOGIST Work Phone: [facility] Comment on above: Results Start: 04-26-2023 End: 04-26-2023 [facility] Facility:[facility] Start: 04-26-2023 End: 04-26-2023 Patient encounter procedure Shonda Older CHAIN SAW DRIVER.CLINICAL AUDIOLOGIST Work Phone: [facility] Comment on above: Late onset Alzheimer '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) (Primary Dx); Memory change; Hypothyroidism, unspecified type; Major depressive disorder with single episode, in full remission (HCC); Chronic anxiety; Stage 3a chronic kidney disease (HCC); Diarrhea, unspecified type Start: 03-12-2023 End: 03-12-2023 ambulatory STU SCHAEFFER Facility:[facility] Start: 02-26-2023 End: 02-26-2023 ambulatory Treatment Rm 13 [facility] Work Phone: Hematology/Oncology Comment on above: Other iron deficienc y anemia (Primary Dx); Iron deficiency anemia, unspecified iron deficiency anemia type Start: 02-19-2023 End: 02-19-2023 ambulatory STU SCHAEFFER Facility:[facility] Start: 02-05-2023 End: 02-05-2023 ambulatory Treatment Rm 13 [facility] Work Phone: Hematology/Oncology Comment on above: Iron deficiency anem ia, unspecified iron deficiency anemia type (Primary Dx) Start: 02-04-2023 Telephone encounter Sarah VALDOVINOS Hematology/Oncology Comment on above: 1st Time Treatment ( Non-Oncology) Start: 01-25-2023 End: 01-25-2023 Patient encounter procedure Stu Schaeffer MD Work Phone: [facility] Start: 01-25-2023 End: 01-25-2023 ambulatory Treatment Rm 10 [facility] Work Phone: Hematology/Oncology Comment on above: Iron deficiency anem ia, unspecified iron deficiency anemia type (Primary Dx) Iron deficiency anem ia, unspecified iron deficiency anemia type Start: 01-04-2023 Telephone encounter Ming hahn MD Work Phone: [facility] Comment on above: Orders Start: 01-04-2023 End: 01-04-2023 ambulatory ZORAN DUMONT Facility:[facility] Start: 01-04-2023 End: 01-04-2023 ambulatory ZORAN DUMONT Facility:[facility] Start: 01-04-2023 End: 01-04-2023 Patient encounter procedure Zoran Dumont PA-C Work Phone: [facility] Comment on above: Iron deficiency anem ia, unspecified iron deficiency anemia type (Primary Dx); 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); Gout with manifestations; Need for influenza vaccination Start: 11-17-2022 Telephone encounter Ming hahn MD Work Phone: [facility] Comment on above: Results Start: 11-13-2022 End: 11-13-2022 Patient encounter procedure Zoran Dumont PA-C Work Phone: [facility] Comment on above: Microcytic anemia (P rimary Dx); History of recent blood transfusion; Acute confusion Start: 11-10-2022 Telephone encounter Rainer roberts MD Work Phone: [facility] Comment on above: Results (Critical Hg b.) Start: 08-21-2022 End: 08-21-2022 Patient encounter procedure Shonda Tyler APRN.CLINICAL AUDIOLOGIST Work Phone: [facility] Comment on above: Essential hypertensi on, benign (Primary Dx); Major depressive disorder with single episode, in full remission (HCC); Chronic anxiety; Anemia, unspecified type; Hypothyroidism, unspecified type Start: 06-05-2022 Refill Ming Berger Work Phone: [facility] Comment on above: Refill Request Start: 05-29-2022 End: 05-29-2022 Patient encounter procedure Ming Mcknight MD Work Phone: [facility] Comment on above: Anemia, unspecified type (Primary Dx); Major depressive disorder with single episode, in full remission (HCC); Chronic anxiety; Hypothyroidism, unspecified type; Essential hypertension, benign Start: 05-03-2022 Refill Shonda Tyler APRN .CLINICAL AUDIOLOGIST Work Phone: [facility] Comment on above: Refill Request Start: 02-10-2022 Telephone encounter Ming hahn MD Work Phone: [facility] Comment on above: stool results Start: 02-09-2022 Refill Ming Berger Work Phone: [facility] Comment on above: Refill Request Start: 01-30-2022 End: 01-30-2022 Patient encounter procedure Mindy Mancia MD Work Phone: OB/Gynecology Comment on above: Pessary maintenance (Primary Dx); Incomplete uterovaginal prolapse Start: 01-29-2022 Telephone encounter Mindy Mancia MD Work Phone: OB/Gynecology Comment on above: Patient Update Start: 01-28-2022 Telephone encounter Shonda Jayson PHILLIPS.CLINICAL AUDIOLOGIST Work Phone: [facility] Comment on above: Results Start: 01-26-2022 Telephone encounter Shonda Jayson PHILLIPS.CLINICAL AUDIOLOGIST Work Phone: [facility] Comment on above: Results Start: 01-23-2022 End: 01-23-2022 Patient encounter procedure Shonda Tyler APRN.CLINICAL AUDIOLOGIST Work Phone: [facility] Comment on above: Anemia, unspecified type (Primary Dx); Prediabetes; Major depressive disorder with single episode, in full remission (HCC); Chronic anxiety; 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) Start: 01-12-2022 Telephone encounter Ming hahn MD Work Phone: [facility] Comment on above: Refill Request Start: 01-02-2022 Telephone encounter Ming hhan MD Work Phone: [facility] Comment on above: Patient Update Start: 12-05-2021 Telephone encounter Ming hahn MD Work Phone: [facility] Comment on above: Results Start: 11-28-2021 End: 11-28-2021 Patient encounter procedure Ming Mcknight MD Work Phone: [facility] Comment on above: Vitamin B12 deficien cy (Primary Dx); Gout with manifestations; Vitamin D deficiency; Hypothyroidism, unspecified type; Essential hypertension, benign; Encounter for screening for diabetes mellitus; Elevated glucose Start: 11-26-2021 End: 11-26-2021 Patient encounter procedure Neela Oneill PA-C Work Phone: [facility] Comment on above: Skin infection (Prim ching Dx) Start: 11-11-2021 ambulatory Ming Berger Work Phone: [facility] [place] Start: 10-20-2021 Refill Ming Berger Work Phone: [facility] Comment on above: Refill Request Start: 07-25-2021 End: 07-25-2021 Patient encounter procedure Mindy Mancia MD Work Phone: OB/Gynecology Comment on above: Uterovaginal prolaps e, complete (Primary Dx); Encounter for pessary maintenance Start: 07-05-2021 Refill Ming Berger Work Phone: [facility] Comment on above: Refill Request Start: 05-16-2021 End: 05-16-2021 Subsequent hospital visit by physician [facility] Work Phone: Radiology Comment on above: Injury of right fore arm, initial encounter [A69.955X] Procedures Date Procedure Procedure Detail Performing Clinician Start: 08-13-2023 Urnls dip stick/tabl et rgnt auto w/o microscopy Shonda Tyler CHAIN SAW DRIVER.CLINICAL AUDIOLOGIST Work Phone: Start: 01-04-2023 INFLUENZA VACCINE, P RSV FREE, AGE 65+ YR, HIGH DOSE, QUADRIVALENT (FLUZONE HIGH-DOSE) Zoran Dumont PA-C Work Phone: Start: 05-16-2021 Radex forearm 2 views T perla Valerio CHAIN SAW DRIVER.CLINICAL AUDIOLOGIST Work Phone: Plan of Treatment Date Care Activity Detail Author Start: 09-02-2030 Urine microalbumin profile [facility] Start: 12-09-2026 Diabetes Screening Diabetes Screenin g [facility] Start: 04-26-2026 Diabetes Screening Diabetes Screenin g [facility] Start: 11-09-2025 DIABETES SCREEN DIABETES SCREEN [facility] Start: 11-09-2025 Diabetes Screening Diabetes Screenin g [facility] Start: 05-08-2025 DIABETES SCREEN DIABETES SCREEN [facility] Start: 12-09-2024 Covid-19 Vaccine () Covid-19 Vaccine () [facility] Comment on above: Postponed from 11/20 (Declined at this time) Start: 12-09-2024 Covid-19 Vaccine () Covid-19 Vaccine () [facility] Comment on above: Postponed from 11/20 (Declined at this time) Start: 11-28-2024 DIABETES SCREEN DIABETES SCREEN [facility] Start: 08-12-2024 Covid-19 Vaccine () Covid-19 Vaccine () [facility] Comment on above: Postponed from 11/20 (Declined at this time) Start: 08-12-2024 RSV Vaccine (1 - 1-d ose 60+ series) RSV Vaccine (1 - 1-dose 60+ series) [facility] Comment on above: Postponed from 10/18 (Declined at this time) Start: 08-12-2024 RSV Vaccine (1 - 1-d ose 75+ series) RSV Vaccine (1 - 1-dose 75+ series) [facility] Comment on above: Postponed from 10/18 (Declined at this time) Start: 08-12-2024 Shingrix Vaccine (1 of 2) Smith grix Vaccine (1 of 2) [facility] Comment on above: Postponed from 10/18 (Declined at this time) Start: 01-12-2024 End: 01-12-2024 Patient encounter procedure 01/12/2024 1:30 PM EDT Office Visit Geriatrics [address], [place] [id number] Ming Mcknight MD [address], [place] [address] 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 [facility]iatric[facility] Comment on above: Late onset Alzheimer '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) [G30.1, F02.... Start: 12-14-2023 End: 03-14-2024 CBC W Auto Differential panel - Blood COMPLETE BLOOD COUNT AND DIFFERENTIAL Lab Routine Anemia, unspecified type Expected: 12/14/2023, Expires: 03/14/2024 [facility] Work Phone: Comment on above: Expected: 12/14/2023 , Expires: 03/14/2024 Start: 12-10-2023 End: 03-10-2024 CBC W Auto Differential panel - Blood [facility] Work Phone: Comment on above: Expected: 12/10/2023 , Expires: 03/10/2024 Start: 12-10-2023 End: 03-10-2024 Comprehensive metabolic 2000 panel - Serum or Plasma [facility] Comment on above: Expected: 12/10/2023 , Expires: 03/10/2024 Start: 12-10-2023 End: 03-10-2024 Thyrotropin [Units/volume] in Serum or Plasma [facility] Comment on above: Expected: 12/10/2023 , Expires: 03/10/2024 Start: 12-10-2023 End: 03-10-2024 Thyroxine (T4) free [Mass/volume] in Serum or Plasma [facility] Comment on above: Expected: 12/10/2023 , Expires: 03/10/2024 Start: 12-10-2023 End: 03-10-2024 Triiodothyronine (T3) Free [Mass/volume] in Serum or Plasma [facility] Comment on above: Expected: 12/10/2023 , Expires: 03/10/2024 Start: 11-15-2023 End: 11-15-2023 Patient encounter procedure 11/15/2023 2:20 PM EDT Office Visit [facility] [address] [place] [address] Ming Mcknight MD [address] [place] [address] 3 month follow up [facility] Comment on above: 3 month follow up Start: 09-01-2023 End: 12-01-2023 Bacteria identified in Urine by Culture URINE CULTURE Microbiology Routine Recent urinary tract infection Recurrent UTI Expected: 09/01/2023 (Approximate), Expires: 12/01/2023 [facility] Comment on above: Expected: 09/01/2023 (Approximate), Expires: 12/01/2023 Start: 09-01-2023 End: 12-01-2023 Urinalysis complete panel - Urine URINALYSIS, WITH MICROSCOPIC Lab Routine Recent urinary tract infection Recurrent UTI Expected: 09/01/2023 (Approximate), Expires: 12/01/2023 [facility] Work Phone: Comment on above: Expected: 09/01/2023 (Approximate), Expires: 12/01/2023 Start: 04-26-2023 End: 07-26-2023 Comprehensive metabolic 2000 panel - Serum or Plasma [facility] Work Phone: Comment on above: Expected: 04/26/2023 , Expires: 07/26/2023 Start: 04-26-2023 End: 07-26-2023 Thyrotropin [Units/volume] in Serum or Plasma [facility] Work Phone: Comment on above: Expected: 04/26/2023 , Expires: 07/26/2023 Start: 04-26-2023 End: 07-26-2023 Thyroxine (T4) free [Mass/volume] in Serum or Plasma [facility] Work Phone: Comment on above: Expected: 04/26/2023 , Expires: 07/26/2023 Start: 04-26-2023 End: 07-26-2023 Urinalysis complete panel - Urine URINALYSIS WITH MICROSCOPIC, REFLEX CULTURE Lab Routine 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) Memory change Expected: 04/26/2023, Expires: 07/26/2023 [facility] Work Phone: Comment on above: Expected: 04/26/2023 , Expires: 07/26/2023 Start: 03-22-2023 Advance Directive Discussion Advance Directive Discussion [facility] Start: 01-31-2023 DIABETES SCREEN DIABETES SCREEN [facility] Start: 11-20-2022 Covid-19 Vaccine () Covid-19 Vaccine () [facility] Start: 11-13-2022 End: 01-13-2023 Bacteria identified in Urine by Culture [facility] Work Phone: Comment on above: Expected: 11/13/2022 , Expires: 01/13/2023 Start: 11-13-2022 End: 01-13-2023 Ferritin [Mass/volume] in Serum or Plasma [facility] Work Phone: Comment on above: Expected: 11/13/2022 , Expires: 01/13/2023 Start: 11-13-2022 End: 01-13-2023 Iron and Iron binding capacity panel - Serum or Plasma [facility] Work Phone: Comment on above: Expected: 11/13/2022 , Expires: 01/13/2023 Start: 11-13-2022 End: 01-13-2023 URINALYSIS, DIPSTICK ONLY [facility] Work Phone: Comment on above: Expected: 11/13/2022 , Expires: 01/13/2023 Start: 09-21-2022 End: 11-21-2022 Basic metabolic 2000 panel - Serum or Plasma BASIC METABOLIC PNL Lab Routine Essential hypertension, benign Anemia, unspecified type Expected: 09/21/2022 (Approximate), Expires: 11/21/2022 [facility] Work Phone: Comment on above: Expected: 09/21/2022 (Approximate), Expires: 11/21/2022 Start: 09-21-2022 End: 11-21-2022 CBC W Auto Differential panel - Blood CBC + DIFF Lab Routine Essential hypertension, benign Anemia, unspecified type Expected: 09/21/2022 (Approximate), Expires: 11/21/2022 [facility] Work Phone: Comment on above: Expected: 09/21/2022 (Approximate), Expires: 11/21/2022 Start: 06-29-2022 End: 08-29-2022 Thyrotropin [Units/volume] in Serum or Plasma TSH BLD Lab Routine Hypothyroidism, unspecified type Expected: 06/29/2022, Expires: 08/29/2022 [facility] Work Phone: Comment on above: Expected: 06/29/2022 , Expires: 08/29/2022 Start: 05-29-2022 End: 07-29-2022 Erythropoietin (EPO) [Units/volume] in Serum or Plasma ERYTHROPOIETIN/EPO Lab Routine Anemia, unspecified type Expected: 05/29/2022, Expires: 07/29/2022 [facility] Work Phone: Comment on above: Expected: 05/29/2022 , Expires: 07/29/2022 Start: 05-29-2022 End: 07-29-2022 Ferritin [Mass/volume] in Serum or Plasma FERRITIN BLD Lab Routine Anemia, unspecified type Expected: 05/29/2022, Expires: 07/29/2022 [facility] Work Phone: Comment on above: Expected: 05/29/2022 , Expires: 07/29/2022 Start: 05-29-2022 End: 07-29-2022 Iron and Iron binding capacity panel - Serum or Plasma IRON + TIBC Lab Routine Anemia, unspecified type Expected: 05/29/2022, Expires: 07/29/2022 [facility] Work Phone: Comment on above: Expected: 05/29/2022 , Expires: 07/29/2022 Start: 05-29-2022 End: 07-29-2022 Lactate dehydrogenase [Enzymatic activity/volume] in Serum or Plasma LD LACTATE DEHYDRO Lab Routine Anemia, unspecified type Expected: 05/29/2022, Expires: 07/29/2022 [facility] Work Phone: Comment on above: Expected: 05/29/2022 , Expires: 07/29/2022 Start: 05-29-2022 End: 07-29-2022 RETIC COUNT RETIC COUNT Lab Routine Anemia, unspecified type Expected: 05/29/2022, Expires: 07/29/2022 [facility] Work Phone: Comment on above: Expected: 05/29/2022 , Expires: 07/29/2022 Start: 05-04-2022 End: 07-04-2022 Basic metabolic 2000 panel - Serum or Plasma BASIC METABOLIC PNL Lab Routine Hypokalemia Essential hypertension, benign Prediabetes Expected: 05/04/2022, Expires: 07/04/2022 [facility] Work Phone: Comment on above: Expected: 05/04/2022 , Expires: 07/04/2022 Start: 05-04-2022 End: 07-04-2022 CBC W Auto Differential panel - Blood CBC + DIFF Lab Routine Essential hypertension, benign Prediabetes Expected: 05/04/2022, Expires: 07/04/2022 [facility] Work Phone: Comment on above: Expected: 05/04/2022 , Expires: 07/04/2022 Start: 05-04-2022 End: 07-04-2022 Hemoglobin A1c in Blood HGB A1C Lab Routine Prediabetes Expected: 05/04/2022, Expires: 07/04/2022 [facility] Work Phone: Comment on above: Expected: 05/04/2022 , Expires: 07/04/2022 Start: 05-04-2022 End: 07-04-2022 Thyrotropin [Units/volume] in Serum or Plasma TSH BLD Lab Routine Hypothyroidism, unspecified type Expected: 05/04/2022, Expires: 07/04/2022 [facility] Work Phone: Comment on above: Expected: 05/04/2022 , Expires: 07/04/2022 Start: 03-22-2022 ADVANCE DIRECTIVE DISCUSSION ADVANCE DIRECTIVE DISCUSSION [facility] Start: 03-20-2022 End: 05-20-2022 CBC W Auto Differential panel - Blood CBC + DIFF Lab Routine Anemia, unspecified type Expected: 03/20/2022 (Approximate), Expires: 05/20/2022 [facility] Work Phone: Comment on above: Expected: 03/20/2022 (Approximate), Expires: 05/20/2022 Start: 02-27-2022 End: 04-29-2022 Thyrotropin [Units/volume] in Serum or Plasma TSH BLD Lab Routine Hypothyroidism, unspecified type Medication management Expected: 02/27/2022 (Approximate), Expires: 04/29/2022 [facility] Work Phone: Comment on above: Expected: 02/27/2022 (Approximate), Expires: 04/29/2022 Start: 01-26-2022 End: 03-28-2022 CBC W Auto Differential panel - Blood CBC + DIFF Lab Routine Anemia, unspecified type Expected: 01/26/2022, Expires: 03/28/2022 [facility] Work Phone: Comment on above: Expected: 01/26/2022 , Expires: 03/28/2022 Start: 01-23-2022 End: 03-25-2022 CBC W Auto Differential panel - Blood [facility] Work Phone: Comment on above: Expected: 01/23/2022 , Expires: 03/25/2022 Start: 01-23-2022 End: 03-25-2022 Ferritin [Mass/volume] in Serum or Plasma [facility] Work Phone: Comment on above: Expected: 01/23/2022 , Expires: 03/25/2022 Start: 01-23-2022 End: 03-25-2022 Iron and Iron binding capacity panel - Serum or Plasma [facility] Work Phone: Comment on above: Expected: 01/23/2022 , Expires: 03/25/2022 Start: 11-28-2021 End: 01-28-2022 25-hydroxyvitamin D3 [Mass/volume] in Serum or Plasma VITAMIN D 25 HYDROXY Lab Routine Vitamin D deficiency Expected: 11/28/2021, Expires: 01/28/2022 [facility] Work Phone: Comment on above: Expected: 11/28/2021 , Expires: 01/28/2022 Start: 11-28-2021 End: 01-28-2022 CBC W Auto Differential panel - Blood [facility] Work Phone: Comment on above: Expected: 11/28/2021 , Expires: 01/28/2022 Start: 11-28-2021 End: 01-28-2022 Cobalamin (Vitamin B12) [Mass/volume] in Serum or Plasma VITAMIN B12 BLOOD Lab Routine Vitamin B12 deficiency Expected: 11/28/2021, Expires: 01/28/2022 [facility] Work Phone: Comment on above: Expected: 11/28/2021 , Expires: 01/28/2022 Start: 11-28-2021 End: 01-28-2022 Comprehensive metabolic 2000 panel - Serum or Plasma [facility] Work Phone: Comment on above: Expected: 11/28/2021 , Expires: 01/28/2022 Start: 11-28-2021 End: 01-28-2022 Hemoglobin A1c in Blood [facility] Work Phone: Comment on above: Expected: 11/28/2021 , Expires: 01/28/2022 Start: 11-28-2021 End: 01-28-2022 Thyrotropin [Units/volume] in Serum or Plasma TSH BLD Lab Routine Hypothyroidism, unspecified type Expected: 11/28/2021, Expires: 01/28/2022 [facility] Work Phone: Comment on above: Expected: 11/28/2021 , Expires: 01/28/2022 Start: 11-28-2021 End: 01-28-2022 Urate [Mass/volume] in Serum or Plasma URIC ACID BLOOD Lab Routine Gout with manifestations Expected: 11/28/2021, Expires: 01/28/2022 [facility] Work Phone: Comment on above: Expected: 11/28/2021 , Expires: 01/28/2022 Start: 11-11-2021 End: 01-11-2022 CBC panel - Blood by Automated count CBC Lab Routine Hypertensive kidney disease with stage 3a chronic kidney disease (HCC) Expected: 11/11/2021, Expires: 01/11/2022 [facility] Work Phone: Comment on above: Expected: 11/11/2021 , Expires: 01/11/2022 Start: 11-11-2021 End: 01-11-2022 SCHEDULE LAB TESTING SCHEDULE LAB TESTING Lab Routine Expected: 11/11/2021, Expires: 01/11/2022 [facility] Work Phone: Comment on above: Expected: 11/11/2021 , Expires: 01/11/2022 Start: 06-12-2021 COVID-19 VACCINE (4 - Booster for Pfizer series) COVID-19 VACCINE (4 - Booster for Pfizer series) [facility] Start: 04-09-2021 COVID-19 VACCINE (4 - Booster for Pfizer series) COVID-19 VACCINE (4 - Booster for Pfizer series) [facility] Start: 04-09-2021 COVID-19 VACCINE (4 - Pfizer series) COVID-19 VACCINE (4 - Pfizer series) [facility] Start: 03-22-2021 ADVANCE DIRECTIVE DISCUSSION ADVANCE DIRECTIVE DISCUSSION [facility] Start: 1996 RSV Vaccine (1 - 1-d ose 60+ series) RSV Vaccine (1 - 1-dose 60+ series) [facility] Start: 1986 SHINGRIX VACCINE (1 of 2) SMITH GRIX VACCINE (1 of 2) [facility] Bacteria identified in Urine by Culture URINE CULTURE Microbiology Routine Recent urinary tract infection Leukocytes in urine 08/13/2023 2:28 PM EDT [facility] End: 01-25-2024 CBC W Auto Differential panel - Blood CBC + DIFF Lab Routine Iron deficiency anemia, unspecified iron deficiency anemia type Once per week for 6 Occurrences starting 01/25/2023 until 01/25/2024 [facility] Work Phone: Comment on above: Once per week for 6 Occurrences starting 01/25/2023 until 01/25/2024 End: 01-25-2024 Ferritin [Mass/volume] in Serum or Plasma FERRITIN BLD Lab Routine Iron deficiency anemia, unspecified iron deficiency anemia type Once per week for 6 Occurrences starting 01/25/2023 until 01/25/2024 [facility] Work Phone: Comment on above: Once per week for 6 Occurrences starting 01/25/2023 until 01/25/2024 Hemoglobin.gastroint estina l.lower [Presence] in Stool by Immunoassay FECAL OCCULT BLOOD TEST Lab Routine Anemia, unspecified type Ordered: 01/26/2022 [facility] Work Phone: Comment on above: Ordered: 01/26/2022 Hemoglobin.gastroint estina l.lower [Presence] in Stool by Immunoassay FECAL OCCULT BLOOD TEST Lab Routine Anemia, unspecified type Ordered: 05/29/2022 [facility] Work Phone: Comment on above: Ordered: 05/29/2022 End: 01-25-2024 Iron and Iron binding capacity panel - Serum or Plasma IRON + TIBC Lab Routine Iron deficiency anemia, unspecified iron deficiency anemia type Once per week for 6 Occurrences starting 01/25/2023 until 01/25/2024 [facility] Work Phone: Comment on above: Once per week for 6 Occurrences starting 01/25/2023 until 01/25/2024 UA DIP, URINE (POC) UA DIP, URIN E (POC) Lab Routine Recent urinary tract infection Ordered: 08/13/2023 [facility] Work Phone: Comment on above: Ordered: 08/13/2023 [facility] Immunizations Immunization Date Immunization Notes Care Provider Joao thorne 01-04-2023 influenza (HD-IIV4) vaccine, age 65+ yr, high dose, quadrivalent, PF (FLUZONE HIGH-DOSE) Zoran Dumont PA-C Work Phone: [facility] Work Phone: 02-12-2021 COVID-19 vaccine, ag e 12+ yr (Zipmark-iZotopeNTMandic - PURPLE TOP) Ming Mcknight MD Work Phone: [facility] Work Phone: 12-27-2020 influenza, high-dose , quadrivalent vaccine (FLUZONE HIGH DOSE QUADRIVALENT) Ming Mcknight MD Work Phone: [facility] Work Phone: 09-02-2020 tetanus and diphther ia toxoids, adsorbed, preservative free, for adult use (5 Lf of tetanus toxoid and 2 Lf of diphtheria toxoid) Ming Mcknight MD Work Phone: [facility] Work Phone: 06-13-2020 COVID-19 vaccine, ag e 12+ yr (PFIZER-BIONTECH - PURPLE TOP) Ming Mcknight MD Work Phone: [facility] 05-23-2020 COVID-19 vaccine, ag e 12+ yr (PFIZER-BIONTECH - PURPLE TOP) Ming Mcknight MD Work Phone: [facility] 03-19-2015 pneumococcal conjuga te vaccine, 13 valent Ming Mcknight MD Work Phone: [facility] 07-30-2011 tetanus toxoid, redu rene diphtheria toxoid, and acellular pertussis vaccine, adsorbed Ming Mcknight MD Work Phone: [facility] 09-27-2006 pneumococcal polysaccharide vaccine, 23 valent Ming Mcknight MD Work Phone: [facility] Work Phone: Payers Date Payer Category Payer Medicare MEDICARE MEDICAR E A AND B [id number] 2001-Present [phone] [place] [address] Medicare [id number] 2001 Medicare MEDICARE MEDICAR E A AND B [id number] 2001-Present [phone] [place] [address] Medicare [id number] 2001 Unknown [employer] [facility] MEDICARE SUPPLEMENT [id number] 2001-Present [phone] [address] [place] [address] Indemnity [id number] 2001 Unknown [employer] [facility] MEDICARE SUPPLEMENT [id number] 2001-Present [phone] [address] [place] [address] Indemnity [id number] 2001 Medicare [id number] 2001 Medicare [id number] Social History Date Type Detail Facility Start: 01-23-2011 End: 01-25-2023 Tobacco smoking status NHIS Ex-smoker [facility] Work Phone: Start: 06-06-2021 End: 12-10-2023 Alcohol intake Current non-drinker of alcohol (finding) [facility] Start: 1935 Sex Assigned At Not on file [facility] Start: 05-27-2021 End: 01-30-2022 Exposure to SARS-CoV-2 (event) Not sure [facility] Work Phone: Start: 03-22-1972 End: 03-22-1992 History of tobacco use Current smoker [facility] Work Phone: Start: 01-23-2011 End: 01-25-2023 Tobacco use and exposure Smokeless tobacco non-user [facility] Work Phone: Start: 11-25-2021 End: 12-05-2021 Exposure to SARS-CoV-2 (event) Unable to assess [facility] Start: 05-26-2022 History SDOH Alcohol Frequency 1 [facility] Start: 05-26-2022 History SDOH Alcohol Std Drinks 0 [facility] Start: 05-26-2022 History SDOH Social Connections Phone 5 [facility] Start: 05-26-2022 History SDOH Social Connections Membership 2 [facility] Start: 05-26-2022 History SDOH Financial 4 [facility] Start: 05-26-2022 End: 08-21-2022 [facility] Start: 05-26-2022 End: 08-21-2022 Social connection and isolation panel [facility] Do you belong to any clubs or organizations such as pentecostalism groups, unions, fraternal or athletic groups, or school groups? No [facility] Are you now , , , , never or living with a partner? [facility] How often to you hav e a drink containing alcohol? Never [facility] How many standard dr inks containing alcohol do you have on a typical day? Patient does not drink [facility] How hard is it for y ou to pay for the very basics like food, housing, medical care, and heating Not very hard [facility] Do you feel stress - tense, restless, nervous, or anxious, or unable to sleep at night because your mind is troubled all the time - these days [OSQ] Not at all [facility] (I/We) worried wheth er (my/our) food would run out before (I/we) got money to buy more. Never true [facility] Start: 03-22-1972 End: 03-22-1992 History of tobacco use Cigarette Smoker [facility] Clinical Notes 03-19-2015 to 12-24-2023 Telephone Encounter - Isatu Moreno LPN - 12/24/2023 3:59 PM EDTTelephone Encounter - Isatu Moreno LPN - 12/24/2023 3:59 PM EDTTelephone Encounter - Isatu Moreno LPN - 12/24/2023 3:59 PM EDT Note Date & Type Note Facility 12-24-2023 Telephone encounter Note Updated via [employer] Isatu Moreno LPN December 24, 2023 3:59 PM [facility] 12-24-2023 Telephone encounter Note ----- Message from Ming Mcknight MD sent at 12/24/2023 2:33 PM EDT ----- Hb is a little improved from the last time Ming Vargas MD [facility] 12-24-2023 Miscellaneous Notes Updated via [employer] Isatu Moreno LPN December 24, 2023 3:59 PM ----- Message from Ming Mcknight MD sent at 12/24/2023 2:33 PM EDT ----- Hb is a little improved from the last time Ming Vargas MD documented in this encounter [facility] 12-14-2023 Telephone encounter Note Jillian notified and verbalized understanding. Zoran Gamble MA [facility] 12-14-2023 Miscellaneous Notes Jillian notified and verbalized understanding. Zoran Gamble MA I have ordered the cbc. She will need to have a follow up. Ming Vargas MD Patient's Daughter calls and states that they had taken patient to [facility] hospital yesterday. Patient's Hgb was 6.8 when patient had gone to hospital. Patient was transfused 1 unit of packed RBCs. Per daughter patient's Hgb was then 7.8. Family and patient had declined further workup for patient. Patient was instructed to have Hgb rechecked in a couple of day. Daughter states that they can have this done on . Daughter asking for order to be placed. Johanna Gamez RN documented in this encounter [facility] 12-14-2023 Telephone encounter Note I have ordered the cbc. She will need to have a follow up. Ming Vargas MD [facility] Work Phone: 12-14-2023 Telephone encounter Note Patient's Daughter calls and states that they had taken patient to [facility] hospital yesterday. Patient's Hgb was 6.8 when patient had gone to hospital. Patient was transfused 1 unit of packed RBCs. Per daughter patient's Hgb was then 7.8. Family and patient had declined further workup for patient. Patient was instructed to have Hgb rechecked in a couple of day. Daughter states that they can have this done on . Daughter asking for order to be placed. Johanna Gamez RN [facility] 12-13-2023 Telephone encounter Note Daughter notified, was already on way up from [place] and feels she will just plan on going to ER to be on the safe side. [facility] 12-13-2023 Miscellaneous Notes Daughter notified, was already on way up from [place] and feels she will just plan on going to ER to be on the safe side. She only needs to go to ER if actively bleeding or symptomatic. If not we can look into doing outpt transfusion if needed and as an outpt identify a cause. Thank you Shonda Tyler APRN.CNP Phoned Jillian patient daughter who said she lives in [place]. Went over results notes from Shonda Tyler JIG FITTER, she said she does not see mother stools so she does not know, she said she sleeps a lot but thought it is medications. She said she just got back home from [place], she said so I need to get back in my car and come back to [place] and take her to the ER. Asked if she was her POA for healthcare and she said no, my niece is. So she is calling the niece to tell her she needs to go to the ER for possible blood transfusions. Hgb is low at 7.1? Any active bleeding? Dark sticky stools? Shortness of breath? Lethargy? Chest pain? Palpitations? If symptomatic, she needs to go to ER. Thank you Shonda Tyler APRN.CNP documented in this encounter [facility] 12-13-2023 Telephone encounter Note She only needs to go to ER if actively bleeding or symptomatic. If not we can look into doing outpt transfusion if needed and as an outpt identify a cause. Thank you Shonda Tyler APRN.CNP [facility] 12-13-2023 Telephone encounter Note Phoned Jillian patient daughter who said she lives in [place]. Went over results notes from Shonda Tyler JIG FITTER, she said she does not see mother stools so she does not know, she said she sleeps a lot but thought it is medications. She said she just got back home from [place], she said so I need to get back in my car and come back to [place] and take her to the ER. Asked if she was her POA for healthcare and she said no, my niece is. So she is calling the niece to tell her she needs to go to the ER for possible blood transfusions. [facility] 12-13-2023 Telephone encounter Note Hgb is low at 7.1? Any active bleeding? Dark sticky stools? Shortness of breath? Lethargy? Chest pain? Palpitations? If symptomatic, she needs to go to ER. Thank you Shonda Tyler APRN.CNP [facility] 12-10-2023 Note HNO ID: [id number] Author: SHONDA TYLER APRN.CNP Service: ? Author Type: Nurse Practitioner Type: Progress Notes Filed: 12/10/2023 14:57 Note Text: CC: Patient presents with: Recheck: Not as steady on feet, walking is more difficult HPI Ainsley Sorenson is a 88 year old female who presents today for routine follow up but with some concerns. Daughter has noticed patient more unsteady and some slight hand tremors. No falls or near falls. Does not use an assistive device but has small home so will hold onto things if needed to steady. Lives alone but daughter lives near her and house is one story with many changes to help prevent falls. Hypothyroidism: Reports taking medication as ordered Denies any abnormal change in weight or energy. Dementia: maybe not so much decrease in memory but daughter has noticed it can take patient a bit longer to sometimes form words in sentences. Takes exelon daily due to increase in diarrhea,. HTN w/ CKD: Ms. Sorenson indicates that she is feeling well and denies any symptoms referable to elevated blood pressure. Specifically denies headache, chest pain, palpitations, dyspnea, and peripheral edema. Is not on any antihypertensive medications. She does not check BP's generally. 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 CKD (chronic kidney disease), stage III (HCC) 05/17/2018 Diverticulosis of colon (without mention of hemorrhage) Essential hypertension, benign Gout attack 12/2014 R great toe Hyperlipidemia LDL goal <100 03/20/2016 Kidney stones Left carotid bruit 04/14/2017 Other symptoms involving cardiovascular system Uterovaginal prolapse PAST SURGICAL HISTORY Procedure Laterality Date COLONOSCOPY FLX DX W/COLLJ SPEC WHEN PFRMD 04/07/2012 Colonoscopy repeat 10 years DILATION AND CURETTAGE DXAND/THER NONOBSTETRIC Dilation AND curettage LAPAROSCOPIC TUBAL LIGATION/RING/CLIP ALLERGIES Aricept [Donepezil], Augmentin [Amoxicillin-Pot Clavulanate], Ciprofloxacin, and Levaquin [Levofloxacin] MEDICATIONS sertraline (ZOLOFT) 50 mg tablet Take 1 tablet by mouth once daily. levothyroxine (LEVOXYL) 50 mcg tablet Take 1 tablet by mouth once daily. Take on empty stomach. For Thyroid rivastigmine tartrate (EXELON) 3 mg capsule Take 1 capsule by mouth two times a day with meals. allopurinol (ZYLOPRIM) 100 mg tablet Take 1 tablet by mouth once daily. For gout. loperamide HCl (IMODIUM) 2 mg tab Take 2 each morning. May take another 2 later in the day, as needed. MEDICAL SUPPLY Blood pressure monitor weight of pt 103# Blood Pressure Monitor (BLOOD PRESSURE KIT) 1 Each once daily. aspirin, enteric coated (ASPIRIN, ENTERIC COATED) 81 mg EC tablet Take 1 tablet by mouth once daily. Lcgyfaefkqhzk-Whgaohpn-Rvbeyt (CENTRUM SILVER) ORAL Tab Take one(1) tablet daily. FAMILY HISTORY Problem Relation Age of Onset other (cerebral hemorrhage) Mother Diabetes Father Stroke Father Social History Tobacco Use Smoking status: Former Current packs/day: 0.00 Average packs/day: 0.5 packs/day for 20.0 years (10.0 ttl pk-yrs) Types: Cigarettes Start date: 1972 Quit date: 1992 Years since quittin.7 Smokeless tobacco: Never Vaping Use Vaping status: Never Used Substance Use Topics Alcohol use: No Drug use: No PHYSICAL EXAM BP 128/74 (BP Site: Left Arm) Pulse 68 Wt 47.3 kg (104 lb 4.4 oz) SpO2 100% BMI 17.35 kg/m? General Appearance: well appearing, in no acute distress, alert Pysch: mood and affect broad and appropriate Eyes: conjunctiva pink and moist, no icterus, sclera white, non-injected Lungs: Lungs clear to auscultation. No wheezing, rhonchi, rales. Heart: RRR without murmur, gallop, or rubs. No ectopy Extremities: No deformities, edema, skin discoloration, clubbing or cyanosis. Good capillary refill. Musculoskeletal: No joint swelling, deformity, or tenderness Neurological: Gait slow and purposeful at first Sensation intact., Negative findings: speech normal, mental status intact, gait, including heel, toe, normal, muscle strength normal. Some difficulty with tandem walking. Health maintenance reviewed with patient: Covid-19 Vaccine( season) due on 11/21/2023 RSV Vaccine(1 - 1-dose 60+ series) due on 08/12/2024 Shingrix Vaccine(1 of 2) due on 08/12/2024 Diabetes Screening due on 04/26/2026 DTaP,Tdap,Td Vaccine(3 - Td or Tdap) due on 09/02/2030 Bone Density Screening Completed Adva (more content not included)... [facility] 12-10-2023 History of Presen t illness Narrative CC: Patient presents with: Recheck: Not as steady on feet, walking is more difficult HPI Ainsley Sorenson is a 88 year old female who presents today for routine follow up but with some concerns. Daughter has noticed patient more unsteady and some slight hand tremors. No falls or near falls. Does not use an assistive device but has small home so will hold onto things if needed to steady. Lives alone but daughter lives near her and house is one story with many changes to help prevent falls. Hypothyroidism: Reports taking medication as ordered Denies any abnormal change in weight or energy. Dementia: maybe not so much decrease in memory but daughter has noticed it can take patient a bit longer to sometimes form words in sentences. Takes exelon daily due to increase in diarrhea,. HTN w/ CKD: Ms. Sorenson indicates that she is feeling well and denies any symptoms referable to elevated blood pressure. Specifically denies headache, chest pain, palpitations, dyspnea, and peripheral edema. Is not on any antihypertensive medications. She does not check BP's generally. 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 CKD (chronic kidney disease), stage III (HCC) 05/17/2018 Diverticulosis of colon (without mention of hemorrhage) Essential hypertension, benign Gout attack 12/2014 R great toe Hyperlipidemia LDL goal <100 03/20/2016 Kidney stones Left carotid bruit 04/14/2017 Other symptoms involving cardiovascular system Uterovaginal prolapse PAST SURGICAL HISTORY Procedure Laterality Date COLONOSCOPY FLX DX W/COLLJ SPEC WHEN PFRMD 04/07/2012 Colonoscopy repeat 10 years DILATION & CURETTAGE DX&/THER NONOBSTETRIC Dilation & curettage LAPAROSCOPIC TUBAL LIGATION/RING/CLIP ALLERGIES Aricept [Donepezil], Augmentin [Amoxicillin-Pot Clavulanate], Ciprofloxacin, and Levaquin [Levofloxacin] MEDICATIONS sertraline (ZOLOFT) 50 mg tablet Take 1 tablet by mouth once daily. levothyroxine (LEVOXYL) 50 mcg tablet Take 1 tablet by mouth once daily. Take on empty stomach. For Thyroid rivastigmine tartrate (EXELON) 3 mg capsule Take 1 capsule by mouth two times a day with meals. allopurinol (ZYLOPRIM) 100 mg tablet Take 1 tablet by mouth once daily. For gout. loperamide HCl (IMODIUM) 2 mg tab Take 2 each morning. May take another 2 later in the day, as needed. MEDICAL SUPPLY Blood pressure monitor weight of pt 103# Blood Pressure Monitor (BLOOD PRESSURE KIT) 1 Each once daily. aspirin, enteric coated (ASPIRIN, ENTERIC COATED) 81 mg EC tablet Take 1 tablet by mouth once daily. Zrqmprnadxuiu-Sqbztkyl-Jsiaju (CENTRUM SILVER) ORAL Tab Take one(1) tablet daily. FAMILY HISTORY Problem Relation Age of Onset other (cerebral hemorrhage) Mother Diabetes Father Stroke Father Social History Tobacco Use Smoking status: Former Current packs/day: 0.00 Average packs/day: 0.5 packs/day for 20.0 years (10.0 ttl pk-yrs) Types: Cigarettes Start date: 1972 Quit date: 1992 Years since quittin.7 Smokeless tobacco: Never Vaping Use Vaping status: Never Used Substance Use Topics Alcohol use: No Drug use: No PHYSICAL EXAM BP 128/74 (BP Site: Left Arm) Pulse 68 Wt 47.3 kg (104 lb 4.4 oz) SpO2 100% BMI 17.35 kg/m General Appearance: well appearing, in no acute distress, alert Pysch: mood and affect broad and appropriate Eyes: conjunctiva pink and moist, no icterus, sclera white, non-injected Lungs: Lungs clear to auscultation. No wheezing, rhonchi, rales. Heart: RRR without murmur, gallop, or rubs. No ectopy Extremities: No deformities, edema, skin discoloration, clubbing or cyanosis. Good capillary refill. Musculoskeletal: No joint swelling, deformity, or tenderness Neurological: Gait slow and purposeful at first Sensation intact., Negative findings: speech normal, mental status intact, gait, including heel, toe, normal, muscle strength normal. Some difficulty with tandem walking. Health maintenance reviewed with patient: Covid-19 Vaccine( - season) due on 11/21/2023 RSV Vaccine(1 - 1-dose 60+ series) due on 08/12/2024 Shingrix Vaccine(1 of 2) due on 08/12/2024 Diabetes Screening due on 04/26/2026 DTaP,Tdap,Td Vaccine(3 - Td or Tdap) due on 09/02/2030 Bone Density Screening Completed Advance Directive Discussion Completed Pneumococcal Vaccine: 65+ Completed Influenza Vaccine Discontinued DATA REVIEWED: No new labs ASSESSMENT/PLAN: 1. Unsteady gait - ICD9: 781.2, ICD10: R26.81 (primary diagnosis) Declines PT at this time. - CONSULT TO GERIATRICS - CANE, QUAD OR THREE PRONG 2. Tremor of both hands - ICD9: 781.0, ICD10: R25.1 None noted on exam. Unsure on cause. Will follow back up if this continues. 3. 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) - ICD9: 331.0, 294.10, ICD10: G30.1, F02.80 Needs evaluated for other possible treatment outside of exelon as this may be resulting in her diarrhea. - CONSULT TO GERIATRICS 4. Hypothyroidism, unspecified type - ICD9: 244.9, ICD10: E03.9 asymptomatic - Instructed patient on importance of taking on an empty stomach either first thing in the morning or at bedtime. - THYROID STIMULATING HORMONE - T3, FREE - T4 FREE/FREE THYROXINE 5. Hypertensive kidney disease with stage 3a chronic kidney disease (HCC) - ICD9: 403.90, 585.3, ICD10: I12.9, N18.31 - Controlled - Recommend home blood pressure monitoring, to bring results to next visit - Encouraged sodium restriction, DASH or Mediterranean diet - Recommend regular aerobic exercise - eGFR: 42 needs revaluated - Counseled on avoiding NSAIDs, adequate hydration 6. Stage 3a chronic kidney disease (HCC) - ICD9: 585.3, ICD10: N18.31 As above - COMPLETE BLOOD COUNT AND DIFFERENTIAL - COMPREHENSIVE METABOLIC PANEL Prescription instructions reviewed with patient as applicable. Potential red flag symptoms discussed with the patient. Reviewed appropriate action plan to take if red flag symptoms occur. Patient agreeable to treatment plan. Shonda Tyler APRN.CNP documented in this encounter [facility] 10-04-2023 Telephone encounter Note The patient has been identified by name and date of : Yes Caregiver verified no other encounters exist for this prescription request: Yes Caregiver confirmed with patient/requestor that no other refills are due, in the near future, with this provider at this time: Yes The last office visit in the department: 08/13/2023 Does the patient have a future office visit with this provider/department: Yes 11/15/2023 Requested Prescriptions Pending Prescriptions Disp Refills sertraline (ZOLOFT) 50 mg tablet 30 tablet 1 Sig: Take 1 tablet by mouth once daily. Johanna Gamez RN October 04, 2023 8:12 AM [facility] 10-04-2023 Miscellaneous Notes The patient has been identified by name and date of : Yes Caregiver verified no other encounters exist for this prescription request: Yes Caregiver confirmed with patient/requestor that no other refills are due, in the near future, with this provider at this time: Yes The last office visit in the department: 08/13/2023 Does the patient have a future office visit with this provider/department: Yes 11/15/2023 Requested Prescriptions Pending Prescriptions Disp Refills sertraline (ZOLOFT) 50 mg tablet 30 tablet 1 Sig: Take 1 tablet by mouth once daily. Johanna Gamez RN October 04, 2023 8:12 AM documented in this encounter [facility] 09-24-2023 Telephone encounter Note Left detailed message with daughter. Lilia Richmond MA [facility] 09-24-2023 Miscellaneous Notes Left detailed message with daughter. Lilia Richmond MA The following approved medication requests have been transmitted electronically. Requested Prescriptions Signed Prescriptions Disp Refills sulfamethoxazole-trimethoprim (BACTRIM DS) 800-160 mg per tablet 14 tablet 0 Sig: Take 1 tablet by mouth two times a day for 7 days. Authorizing Provider: KRYSTAL MEZA APRN.CLINICAL AUDIOLOGIST Pts daughter called and is notified of providers results and instructions. She voices understanding and states she was never notified about any antibiotic. Please send antibiotic to [facility] in [place] and call and leave a VM on the daughters phone to let her know when it was sent. Suzy Lindo RN Left message to return call. Please let her know that her urine culture does show a UTI. I don't see that Shonda sent her in an antibiotic? Please confirm this with her and I will send one in. Krystal Meza APRN.CNP documented in this encounter [facility] 09-24-2023 Telephone encounter Note The following approved medication requests have been transmitted electronically. Requested Prescriptions Signed Prescriptions Disp Refills sulfamethoxazole-trimethoprim (BACTRIM DS) 800-160 mg per tablet 14 tablet 0 Sig: Take 1 tablet by mouth two times a day for 7 days. Authorizing Provider: KRYSTAL MEZA APRN.CNP [facility] 09-24-2023 Telephone encounter Note Pts daughter called and is notified of providers results and instructions. She voices understanding and states she was never notified about any antibiotic. Please send antibiotic to [facility] in [place] and call and leave a VM on the daughters phone to let her know when it was sent. Suzy Lindo, KEYONNA [facility] 09-24-2023 Telephone encounter Note Left message to return call. [facility] 09-24-2023 Telephone encounter Note Please let her know that her urine culture does show a UTI. I don't see that Shonda sent her in an antibiotic? Please confirm this with her and I will send one in. Krystal Meza APRN.CNP [facility] 08-18-2023 Telephone encounter Note Patient daughter notified. [facility] 08-18-2023 Miscellaneous Notes Patient daughter notified. Urine still with bacteria but no sensitivity performed. I am repeating treatment of bactrim but slightly lowering dose in response to previous kidney function. Repeat urine 10-14 days after completion of treatment. documented in this encounter [facility] 08-18-2023 Telephone encounter Note Urine still with bacteria but no sensitivity performed. I am repeating treatment of bactrim but slightly lowering dose in response to previous kidney function. Repeat urine 10-14 days after completion of treatment. [facility] 08-13-2023 Telephone encounter Note Daughter phones for refill(s): Requested Prescriptions Pending Prescriptions Disp Refills levothyroxine (LEVOXYL) 50 mcg tablet 30 tablet 5 Sig: Take 1 tablet by mouth once daily. Take on empty stomach. For Thyroid Date of last office visit in primary care: 08/13/2023 Date of next office visit in primary care: 11/15/2023 Lara Rodríguez RN. [facility] 08-13-2023 Miscellaneous Notes Daughter phones for refill(s): Requested Prescriptions Pending Prescriptions Disp Refills levothyroxine (LEVOXYL) 50 mcg tablet 30 tablet 5 Sig: Take 1 tablet by mouth once daily. Take on empty stomach. For Thyroid Date of last office visit in primary care: 08/13/2023 Date of next office visit in primary care: 11/15/2023 Lara Rodríguez RN. documented in this encounter [facility] 08-13-2023 Note HNO ID: [id number] Author: SHONDA TYLER APRN.CLINICAL AUDIOLOGIST Service: ? Author Type: Nurse Practitioner Type: Progress Notes Filed: 08/13/2023 14:15 Note Text: CC: Patient presents with: Recheck: 6 week follow up HPI Ainsley Sorenson is a 87 year old female who presents today for follow up on worsening dementia, diarrhea, and recent UTI. UTI symptoms resolved. Denies increase in urinary frequency, fever, chills, abdominal pain, difficulty/pain urinating, or change in energy. Still with some diarrhea but much improved with the decreased dose in exelon. Daughter is thinking the residual diarrhea may be result of dairy but will continue to monitor to see if this may be the cause. Denies any nausea, vomiting, or constipation. Daughter not sure if memory is any different with resolution of UTI. States she has her good and bad days, but has no concerns for her safety. No change from living situations from last visit Patient lives by herself but daughter lives across the street so is there daily and prepares her medications. Denies any falls or wandering off. House is one story with no steps. REVIEW OF SYSTEMS General: no fevers, no chills, no night sweats, no recurrent infections, no change in appetite, no change in energy, and no significant changes in weight Respiratory: no cough, no wheezing, no shortness of breath, no hemoptysis Cardiovascular: no chest pain, no chest pressure, no palpitations, and no swelling Neurologic: No headache,dizziness, syncope. 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 CKD (chronic kidney disease), stage III (HCC) 05/17/2018 Diverticulosis of colon (without mention of hemorrhage) Essential hypertension, benign Gout attack 12/2014 R great toe Hyperlipidemia LDL goal <100 03/20/2016 Kidney stones Left carotid bruit 04/14/2017 Other symptoms involving cardiovascular system Uterovaginal prolapse PAST SURGICAL HISTORY Procedure Laterality Date COLONOSCOPY FLX DX W/COLLJ SPEC WHEN PFRMD 04/07/2012 Colonoscopy repeat 10 years DILATION AND CURETTAGE DXAND/THER NONOBSTETRIC Dilation AND curettage LAPAROSCOPIC TUBAL LIGATION/RING/CLIP ALLERGIES Aricept [Donepezil], Augmentin [Amoxicillin-Pot Clavulanate], Ciprofloxacin, and Levaquin [Levofloxacin] MEDICATIONS sertraline (ZOLOFT) 50 mg tablet Take 1 tablet by mouth once daily. rivastigmine tartrate (EXELON) 3 mg capsule Take 1 capsule by mouth two times a day with meals. levothyroxine (LEVOXYL) 50 mcg tablet Take 1 tablet by mouth once daily. Take on empty stomach. For Thyroid allopurinol (ZYLOPRIM) 100 mg tablet Take 1 tablet by mouth once daily. For gout. MEDICAL SUPPLY Blood pressure monitor weight of pt 103# Blood Pressure Monitor (BLOOD PRESSURE KIT) 1 Each once daily. loperamide HCl (IMODIUM) 2 mg tab Take 2 each morning. May take another 2 later in the day, as needed. potassium chloride ER (K-DUR, KLOR-CON) 20 mEq tablet Take 1 tablet by mouth once daily aspirin, enteric coated (ASPIRIN, ENTERIC COATED) 81 mg EC tablet Take 1 tablet by mouth once daily. Drembmihbsmrj-Ustuvems-Qfjuwv (CENTRUM SILVER) ORAL Tab Take one(1) tablet daily. FAMILY HISTORY Problem Relation Age of Onset other (cerebral hemorrhage) Mother Diabetes Father Stroke Father Social History Tobacco Use Smoking status: Former Packs/day: 0.50 Years: 20.00 Additional pack years: 0.00 Total pack years: 10.00 Types: Cigarettes Quit date: 1992 Years since quittin.4 Smokeless tobacco: Never Vaping Use Vaping Use: Never used Substance Use Topics Alcohol use: No Drug use: No PHYSICAL EXAM BP 122/66 (BP Site: Right Arm) Pulse 85 Wt 50.7 kg (111 lb 12.8 oz) SpO2 96% BMI 18.60 kg/m? General Appearance: well appearing, in no acute distress, alert Skin: Skin color, texture, turgor normal for age; Eyes: conjunctiva pink and moist, no icterus, sclera white, non-injected Lungs: Lungs clear to auscultation. No wheezing, rhonchi, rales. Heart: RRR without murmur, gallop, or rubs. No ectopy Abdomen: Abdomen soft, non-tender. Bowel sounds normal. No masses, organomegaly Health maintenance reviewed with patient: Shingrix Vaccine(1 of 2) Never done RSV Vaccine(1 - 1-dose 60+ series) Never done Covid-19 Vaccine( - season) due on 11/20/2022 Advance Directive Discussion Never done Diabetes Screening due on 04/26/2026 DTaP,Tdap,Td Vaccine(3 - Td or Tdap) due on 09/02/2030 Bone Density Screening Completed Pneumococcal Vaccine: 65+ Completed Influenza Vaccine Discontinued DATA REVIEWED: Most recent labs ASSESSMENT/PLAN: 1. Recent urinary tract infection - ICD9: V13.02, ICD10: Z87.440 (primary diagnosis) With leuks still in urine will further evaluate with culture - UA DIP, URINE (POC) - URINE CULTURE 2. Leukocytes in urine - ICD9: 791.7, ICD10: R82.998 As above - URINE CULTURE 3. (more content not included)... [facility] 08-13-2023 History of Presen t illness Narrative CC: Patient presents with: Recheck: 6 week follow up HPI Ainsley Sorenson is a 87 year old female who presents today for follow up on worsening dementia, diarrhea, and recent UTI. UTI symptoms resolved. Denies increase in urinary frequency, fever, chills, abdominal pain, difficulty/pain urinating, or change in energy. Still with some diarrhea but much improved with the decreased dose in exelon. Daughter is thinking the residual diarrhea may be result of dairy but will continue to monitor to see if this may be the cause. Denies any nausea, vomiting, or constipation. Daughter not sure if memory is any different with resolution of UTI. States she has her good and bad days, but has no concerns for her safety. No change from living situations from last visit Patient lives by herself but daughter lives across the street so is there daily and prepares her medications. Denies any falls or wandering off. House is one story with no steps. REVIEW OF SYSTEMS General: no fevers, no chills, no night sweats, no recurrent infections, no change in appetite, no change in energy, and no significant changes in weight Respiratory: no cough, no wheezing, no shortness of breath, no hemoptysis Cardiovascular: no chest pain, no chest pressure, no palpitations, and no swelling Neurologic: No headache,dizziness, syncope. 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 CKD (chronic kidney disease), stage III (HCC) 05/17/2018 Diverticulosis of colon (without mention of hemorrhage) Essential hypertension, benign Gout attack 12/2014 R great toe Hyperlipidemia LDL goal <100 03/20/2016 Kidney stones Left carotid bruit 04/14/2017 Other symptoms involving cardiovascular system Uterovaginal prolapse PAST SURGICAL HISTORY Procedure Laterality Date COLONOSCOPY FLX DX W/COLLJ SPEC WHEN PFRMD 04/07/2012 Colonoscopy repeat 10 years DILATION & CURETTAGE DX&/THER NONOBSTETRIC Dilation & curettage LAPAROSCOPIC TUBAL LIGATION/RING/CLIP ALLERGIES Aricept [Donepezil], Augmentin [Amoxicillin-Pot Clavulanate], Ciprofloxacin, and Levaquin [Levofloxacin] MEDICATIONS sertraline (ZOLOFT) 50 mg tablet Take 1 tablet by mouth once daily. rivastigmine tartrate (EXELON) 3 mg capsule Take 1 capsule by mouth two times a day with meals. levothyroxine (LEVOXYL) 50 mcg tablet Take 1 tablet by mouth once daily. Take on empty stomach. For Thyroid allopurinol (ZYLOPRIM) 100 mg tablet Take 1 tablet by mouth once daily. For gout. MEDICAL SUPPLY Blood pressure monitor weight of pt 103# Blood Pressure Monitor (BLOOD PRESSURE KIT) 1 Each once daily. loperamide HCl (IMODIUM) 2 mg tab Take 2 each morning. May take another 2 later in the day, as needed. potassium chloride ER (K-DUR, KLOR-CON) 20 mEq tablet Take 1 tablet by mouth once daily aspirin, enteric coated (ASPIRIN, ENTERIC COATED) 81 mg EC tablet Take 1 tablet by mouth once daily. Dhaifzzqgfuzj-Sdogmvux-Caaury (CENTRUM SILVER) ORAL Tab Take one(1) tablet daily. FAMILY HISTORY Problem Relation Age of Onset other (cerebral hemorrhage) Mother Diabetes Father Stroke Father Social History Tobacco Use Smoking status: Former Packs/day: 0.50 Years: 20.00 Additional pack years: 0.00 Total pack years: 10.00 Types: Cigarettes Quit date: 1992 Years since quittin.4 Smokeless tobacco: Never Vaping Use Vaping Use: Never used Substance Use Topics Alcohol use: No Drug use: No PHYSICAL EXAM BP 122/66 (BP Site: Right Arm) Pulse 85 Wt 50.7 kg (111 lb 12.8 oz) SpO2 96% BMI 18.60 kg/m General Appearance: well appearing, in no acute distress, alert Skin: Skin color, texture, turgor normal for age; Eyes: conjunctiva pink and moist, no icterus, sclera white, non-injected Lungs: Lungs clear to auscultation. No wheezing, rhonchi, rales. Heart: RRR without murmur, gallop, or rubs. No ectopy Abdomen: Abdomen soft, non-tender. Bowel sounds normal. No masses, organomegaly Health maintenance reviewed with patient: Shingrix Vaccine(1 of 2) Never done RSV Vaccine(1 - 1-dose 60+ series) Never done Covid-19 Vaccine( - 2022- season) due on 11/20/2022 Advance Directive Discussion Never done Diabetes Screening due on 04/26/2026 DTaP,Tdap,Td Vaccine(3 - Td or Tdap) due on 09/02/2030 Bone Density Screening Completed Pneumococcal Vaccine: 65+ Completed Influenza Vaccine Discontinued DATA REVIEWED: Most recent labs ASSESSMENT/PLAN: 1. Recent urinary tract infection - ICD9: V13.02, ICD10: Z87.440 (primary diagnosis) With leuks still in urine will further evaluate with culture - UA DIP, URINE (POC) - URINE CULTURE 2. Leukocytes in urine - ICD9: 791.7, ICD10: R82.998 As above - URINE CULTURE 3. 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) - ICD9: 331.0, 294.10, ICD10: G30.1, F02.80 No concerns for patient's safety per daughter. Patient appears well cared for in visit Daughter to call if she would like any information of community support for families caring for loved ones with dementia. - follow up in 3 months with PCP 4. Diarrhea, unspecified type - ICD9: 787.91, ICD10: R19.7 Improving with decreased dose of Exelon. Continue with monitoring to evaluate for dietary cause Follow up if this worsens or for any further concerns. Prescription instructions reviewed with patient as applicable. Potential red flag symptoms discussed with the patient. Reviewed appropriate action plan to take if red flag symptoms occur. Patient agreeable to treatment plan. Shonda Tyler APRN.CLINICAL AUDIOLOGIST documented in this encounter [facility] 06-09-2023 Miscellaneous Notes Requested Prescriptions Pending Prescriptions Disp Refills sertraline (ZOLOFT) 50 mg tablet [Pharmacy Med Name: Sertraline HCl 50 MG Oral Tablet] 30 tablet 0 Sig: Take 1 tablet by mouth once daily Date of last office visit in primary care: 04/26/2023 Date of next office visit in primary care: 06/21/2023 Please advise. Thank you. Placido Hull Ma. Patient has been identified by name and date of : Yes Requested Prescriptions Pending Prescriptions Disp Refills sertraline (ZOLOFT) 50 mg tablet [Pharmacy Med Name: Sertraline HCl 50 MG Oral Tablet] 30 tablet 0 Sig: Take 1 tablet by mouth once daily RX INSTRUCTIONS: Patient aware RX will be sent to pharmacy. No need to notify patient. Zoran Steele Pss documented in this encounter [facility] 04-29-2023 Miscellaneous Notes Pts granddaughter Suzy called and is notified of providers results and instructions. She voices understanding and her or her mother will go pick the medication up for the Pt. Suzy Lindo RN Patient is positive for urinary tract infection. Hold your potassium supplement while on the antibiotic. Thank you Shonda Tyler APRN.CNP documented in this encounter [facility] 04-26-2023 Note HNO ID: [id number] Author: SHONDA TYLER APRN.CNP Service: ? Author Type: Nurse Practitioner Type: Progress Notes Filed: 04/26/2023 14:41 Note Text: CC: Patient presents with: Recheck: Follow up anemia HPI Ainsley Sorenson is a 87 year old female who presents today for routine follow up Dementia: Has noticed quick decline in mental clarity. Patient lives by herself but daughter lives across the street so is there daily and prepares her medications. Denies any falls or wandering off. House is one story with no steps. Has had ongoing diarrhea which daughter thinks may have started with the exelon. Diarrhea will occur with incontinence but is not daily. Denies nausea, vomiting, abdominal pain, or fever. Anxiety and Depression: Patient does cry daily. Sleep: sleeps a large amount per daughter awake average of 3-4 hours a day Alcohol use: does not drink any alcohol Drug use: No Appetite: good Suicidal Thoughts: No suicidal ideation, intent or plan Support: Comes from multiple sources including daughter Hypothyroidism: Takes medication as prescribed. Reports being tired, but no abnormal change in weight. REVIEW OF SYSTEMS General: no fevers, no chills, no night sweats, no recurrent infections, no change in appetite, and no significant changes in weight Respiratory: no cough, no wheezing, no shortness of breath, no hemoptysis Cardiovascular: no chest pain, no chest pressure, no palpitations, and no swelling Endocrine: no polyuria, no polyphagia, and no polydipsia Neurologic: No headache, weakness, numbness, dizziness, syncope. 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 CKD (chronic kidney disease), stage III (HCC) 05/17/2018 Diverticulosis of colon (without mention of hemorrhage) Essential hypertension, benign Gout attack 12/2014 R great toe Hyperlipidemia LDL goal <100 03/20/2016 Kidney stones Left carotid bruit 04/14/2017 Other symptoms involving cardiovascular system Uterovaginal prolapse PAST SURGICAL HISTORY Procedure Laterality Date COLONOSCOPY FLX DX W/COLLJ SPEC WHEN PFRMD 04/07/2012 Colonoscopy repeat 10 years DILATION AND CURETTAGE DXAND/THER NONOBSTETRIC Dilation AND curettage LAPAROSCOPIC TUBAL LIGATION/RING/CLIP ALLERGIES Aricept [Donepezil], Augmentin [Amoxicillin-Pot Clavulanate], Ciprofloxacin, and Levaquin [Levofloxacin] MEDICATIONS levothyroxine (LEVOXYL) 50 mcg tablet Take 1 tablet by mouth once daily. Take on empty stomach. For Thyroid rivastigmine tartrate (EXELON) 3 mg capsule Take 1 capsule by mouth two times a day with meals. sertraline (ZOLOFT) 50 mg tablet Take 1 tablet by mouth once daily. allopurinol (ZYLOPRIM) 100 mg tablet Take 1 tablet by mouth once daily. For gout. MEDICAL SUPPLY Blood pressure monitor weight of pt 103# Blood Pressure Monitor (BLOOD PRESSURE KIT) 1 Each once daily. potassium chloride ER (K-DUR, KLOR-CON) 20 mEq tablet Take 1 tablet by mouth once daily loperamide HCl (IMODIUM) 2 mg tab Take 2 each morning. May take another 2 later in the day, as needed. aspirin, enteric coated (ASPIRIN, ENTERIC COATED) 81 mg EC tablet Take 1 tablet by mouth once daily. Uhkzwfbxmvebw-Vkbkwjla-Rfeggb (CENTRUM SILVER) ORAL Tab Take one(1) tablet daily. FAMILY HISTORY Problem Relation Age of Onset other (cerebral hemorrhage) Mother Diabetes Father Stroke Father Social History Tobacco Use Smoking status: Former Packs/day: 0.50 Years: 20.00 Additional pack years: 0.00 Total pack years: 10.00 Types: Cigarettes Quit date: 1992 Years since quittin.1 Smokeless tobacco: Never Vaping Use Vaping Use: Never used Substance Use Topics Alcohol use: No Drug use: No PHYSICAL EXAM BP 128/70 Pulse 72 Resp 16 Wt 49 kg (108 lb) BMI 17.97 kg/m? General Appearance: well appearing, in no acute distress, alert Pysch: mood and affect broad and appropriate Skin: Skin color, texture, turgor normal for age; Eyes: conjunctiva pink and moist, no icterus, sclera white, non-injected Neck: Thyroid normal size and symmetric without palpable nodules, No adenopathy Lymph nodes: No cervical lymphadenopathy and No supraclavicular lymphadenopathy Lungs: Lungs clear to auscultation. No wheezing, rhonchi, rales. Heart: RRR without murmur, gallop, or rubs. No ectopy Neurological: Gait normal. Reflexes normal and symmetric. Sensation intact., speech normal, muscle tone normal, muscle strength normal [facility] 04/26/[address] 1 REGISTRATION 3 ATTENTION AND CALCULATION 0 RECALL 0 LANGUAGE 2 REPEAT 0 FOLLOW 3-STEP COMMAND 3 READ AND OBEY 0 WRITE A SENTENCE 0 COPY 0 SCORE 9 Health maintenance reviewed with patient: Shingrix Vaccine(1 of 2) Never done RSV Vaccine(1 - 1-dose 60+ series) Never done Covid-19 Vaccine( season) due on 11/20/2022 Advance Directive Discussion Never done D (more content not included)... [facility] 04-26-2023 History of Presen t illness Narrative CC: Patient presents with: Recheck: Follow up anemia HPI Ainsley Sorenson is a 87 year old female who presents today for routine follow up Dementia: Has noticed quick decline in mental clarity. Patient lives by herself but daughter lives across the street so is there daily and prepares her medications. Denies any falls or wandering off. House is one story with no steps. Has had ongoing diarrhea which daughter thinks may have started with the exelon. Diarrhea will occur with incontinence but is not daily. Denies nausea, vomiting, abdominal pain, or fever. Anxiety and Depression: Patient does cry daily. Sleep: sleeps a large amount per daughter awake average of 3-4 hours a day Alcohol use: does not drink any alcohol Drug use: No Appetite: good Suicidal Thoughts: No suicidal ideation, intent or plan Support: Comes from multiple sources including daughter Hypothyroidism: Takes medication as prescribed. Reports being tired, but no abnormal change in weight. REVIEW OF SYSTEMS General: no fevers, no chills, no night sweats, no recurrent infections, no change in appetite, and no significant changes in weight Respiratory: no cough, no wheezing, no shortness of breath, no hemoptysis Cardiovascular: no chest pain, no chest pressure, no palpitations, and no swelling Endocrine: no polyuria, no polyphagia, and no polydipsia Neurologic: No headache, weakness, numbness, dizziness, syncope. 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 CKD (chronic kidney disease), stage III (HCC) 05/17/2018 Diverticulosis of colon (without mention of hemorrhage) Essential hypertension, benign Gout attack 12/2014 R great toe Hyperlipidemia LDL goal <100 03/20/2016 Kidney stones Left carotid bruit 04/14/2017 Other symptoms involving cardiovascular system Uterovaginal prolapse PAST SURGICAL HISTORY Procedure Laterality Date COLONOSCOPY FLX DX W/COLLJ SPEC WHEN PFRMD 04/07/2012 Colonoscopy repeat 10 years DILATION & CURETTAGE DX&/THER NONOBSTETRIC Dilation & curettage LAPAROSCOPIC TUBAL LIGATION/RING/CLIP ALLERGIES Aricept [Donepezil], Augmentin [Amoxicillin-Pot Clavulanate], Ciprofloxacin, and Levaquin [Levofloxacin] MEDICATIONS levothyroxine (LEVOXYL) 50 mcg tablet Take 1 tablet by mouth once daily. Take on empty stomach. For Thyroid rivastigmine tartrate (EXELON) 3 mg capsule Take 1 capsule by mouth two times a day with meals. sertraline (ZOLOFT) 50 mg tablet Take 1 tablet by mouth once daily. allopurinol (ZYLOPRIM) 100 mg tablet Take 1 tablet by mouth once daily. For gout. MEDICAL SUPPLY Blood pressure monitor weight of pt 103# Blood Pressure Monitor (BLOOD PRESSURE KIT) 1 Each once daily. potassium chloride ER (K-DUR, KLOR-CON) 20 mEq tablet Take 1 tablet by mouth once daily loperamide HCl (IMODIUM) 2 mg tab Take 2 each morning. May take another 2 later in the day, as needed. aspirin, enteric coated (ASPIRIN, ENTERIC COATED) 81 mg EC tablet Take 1 tablet by mouth once daily. Krmqeppyjgqvz-Keqsmvod-Joxbhl (CENTRUM SILVER) ORAL Tab Take one(1) tablet daily. FAMILY HISTORY Problem Relation Age of Onset other (cerebral hemorrhage) Mother Diabetes Father Stroke Father Social History Tobacco Use Smoking status: Former Packs/day: 0.50 Years: 20.00 Additional pack years: 0.00 Total pack years: 10.00 Types: Cigarettes Quit date: 1992 Years since quittin.1 Smokeless tobacco: Never Vaping Use Vaping Use: Never used Substance Use Topics Alcohol use: No Drug use: No PHYSICAL EXAM BP 128/70 Pulse 72 Resp 16 Wt 49 kg (108 lb) BMI 17.97 kg/m General Appearance: well appearing, in no acute distress, alert Pysch: mood and affect broad and appropriate Skin: Skin color, texture, turgor normal for age; Eyes: conjunctiva pink and moist, no icterus, sclera white, non-injected Neck: Thyroid normal size and symmetric without palpable nodules, No adenopathy Lymph nodes: No cervical lymphadenopathy and No supraclavicular lymphadenopathy Lungs: Lungs clear to auscultation. No wheezing, rhonchi, rales. Heart: RRR without murmur, gallop, or rubs. No ectopy Neurological: Gait normal. Reflexes normal and symmetric. Sensation intact., speech normal, muscle tone normal, muscle strength normal [facility] 04/26/[address] 1 REGISTRATION 3 ATTENTION & CALCULATION 0 RECALL 0 LANGUAGE 2 REPEAT 0 FOLLOW 3-STEP COMMAND 3 READ AND OBEY 0 WRITE A SENTENCE 0 COPY 0 SCORE 9 Health maintenance reviewed with patient: Shingrix Vaccine(1 of 2) Never done RSV Vaccine(1 - 1-dose 60+ series) Never done Covid-19 Vaccine( - 2022- season) due on 11/20/2022 Advance Directive Discussion Never done Diabetes Screening due on 11/09/2025 DTaP,Tdap,Td Vaccine(3 - Td or Tdap) due on 09/02/2030 Bone Density Screening Completed Pneumococcal Vaccine: 65+ Completed Influenza Vaccine Discontinued DATA REVIEWED: Most recent labs ASSESSMENT/PLAN: 1. 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) - ICD9: 331.0, 294.10, ICD10: G30.1, F02.80 (primary diagnosis) Memory worsening. My concern is for patients safety. If no other cause for declining memory, will discuss have SW reach out to family discuss options and support for memory care. - decreasing exelon to see if diarrhea decreases. - TSH BLD - T4 FREE/FREE THYROX - COMP METABOLIC PANEL - URINALYSIS WITH MICROSCOPIC, REFLEX CULTURE - RIVASTIGMINE 3 MG CAPSULE 2. Memory change - ICD9: 780.93, ICD10: R41.3 As above - TSH BLD - T4 FREE/FREE THYROX - COMP METABOLIC PANEL - URINALYSIS WITH MICROSCOPIC, REFLEX CULTURE 3. Hypothyroidism, unspecified type - ICD9: 244.9, ICD10: E03.9 Se #1 - Instructed patient on importance of taking on an empty stomach either first thing in the morning or at bedtime. - TSH BLD - T4 FREE/FREE THYROX 4. Major depressive disorder with single episode, in full remission (HCC) - ICD9: 296.26, ICD10: F32.5 - with the crying, will increase sertraline - SERTRALINE 50 MG TABLET - Reviewed concept of neurochemical imbalance wth depression/anxiety, treatment options and benefits of counseling in combination with medication. Also reviewed benefits of sleep hygeine, diet and exercise - Follow-up in 4-6 or sooner as needed - Instructed patient to contact office or clxlz-al-jqss after-hours promptly should condition worsen or any new symptoms appear. - Counseling Center [facility] and after hours crisis line 5. Chronic anxiety - ICD9: 300.00, ICD10: F41.9 As above - SERTRALINE 50 MG TABLET 6. Stage 3a chronic kidney disease (HCC) - ICD9: 585.3, ICD10: N18.31 - eGFR: needs re-evaluated - Counseled on avoiding NSAIDs, adequate hydration - COMP METABOLIC PANEL 7. Diarrhea, unspecified type - ICD9: 787.91, ICD10: R19.7 See #1 Prescription instructions reviewed with patient as applicable. Potential red flag symptoms discussed with the patient. Reviewed appropriate action plan to take if red flag symptoms occur. Patient agreeable to treatment plan. Shonda Tyler APRN.SABIHA documented in this encounter [facility] 02-04-2023 Miscellaneous Notes Pt noted on [facility] 1st time treatment report. Pt has a non-oncology regimen. No social work follow up indicated. BONIFACIO Rodrigues-S Oncology SW documented in this encounter [facility] 01-25-2023 Note HNO ID: [id number] Author: Stu Schaeffer MD Service: ? Author Type: Physician Type: Progress Notes Filed: 01/25/2023 4:29 PM Note Text: HISTORY OF PRESENT ILLNESS: Ainsley Sorenson is a 87 year old female history of anemia, iron deficincy, likely due to GI blood loss. She has dementia, no work up of GI is planned. Labs reviewed, iron pills cause bad diarrhea, CLINICAL IMPRESSION: NEHEMIAH likely due to GI blood loss RECOMMENDATION/PLAN: 1. Plan IV iron replacement for at tleast palliation of anemia Written and verbal health teaching given to patient, patient verbalizes understanding and agrees with treatment plan. 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 CKD (chronic kidney disease), stage III (HCC) 05/17/2018 Diverticulosis of colon (without mention of hemorrhage) Essential hypertension, benign Gout attack 12/2014 R great toe Hyperlipidemia LDL goal <100 03/20/2016 Kidney stones Left carotid bruit 04/14/2017 Other symptoms involving cardiovascular system Uterovaginal prolapse PAST SURGICAL HISTORY Procedure Laterality Date COLONOSCOPY FLX DX W/COLLJ SPEC WHEN PFRMD 04/07/2012 Colonoscopy repeat 10 years DILATION AND CURETTAGE DXAND/THER NONOBSTETRIC Dilation AND curettage LAPAROSCOPIC TUBAL LIGATION/RING/CLIP FAMILY HISTORY Problem Relation Age of Onset other (cerebral hemorrhage) Mother Diabetes Father Stroke Father Social History Tobacco Use Smoking status: Former Packs/day: 0.50 Years: 20.00 Additional pack years: 0.00 Total pack years: 10.00 Types: Cigarettes Quit date: 1992 Years since quittin.8 Smokeless tobacco: Never Vaping Use Vaping Use: Never used Substance Use Topics Alcohol use: No Drug use: No ALLERGIES: ALLERGIES Allergen Reactions Augmentin [Amoxicil* Diarrhea Ciprofloxacin Rash Levaquin [Levofloxa* Rash itching rash CURRENT OUTPATIENT MEDICATIONS: allopurinol (ZYLOPRIM) 100 mg tablet Take 1 tablet by mouth once daily. For gout. levothyroxine (LEVOXYL) 50 mcg tablet Take 1 tablet by mouth once daily. Take on empty stomach. For Thyroid sertraline (ZOLOFT) 25 mg tablet Take 1 tablet by mouth once daily. rivastigmine tartrate (EXELON) 6 mg capsule Take 1 capsule by mouth twice daily with meals. loperamide HCl (IMODIUM) 2 mg tab Take 2 each morning. May take another 2 later in the day, as needed. ferrous sulfate 325 mg (65 mg iron) tablet Take 1 tablet by mouth daily with breakfast. MEDICAL SUPPLY Blood pressure monitor weight of pt 103# Blood Pressure Monitor (BLOOD PRESSURE KIT) 1 Each once daily. potassium chloride ER (K-DUR, KLOR-CON) 20 mEq tablet Take 1 tablet by mouth once daily aspirin, enteric coated (ASPIRIN, ENTERIC COATED) 81 mg EC tablet Take 1 tablet by mouth once daily. Yvqhdaonwadaz-Ueqpsaee-Stxktt (CENTRUM SILVER) ORAL Tab Take one(1) tablet daily. REVIEW OF SYSTEMS: GENERAL: No fever, night sweats, weight loss or malaise. All other reviewed and negative other than HPI. PHYSICAL EXAMINATION: VITAL SIGNS: BP 165/74 Pulse 67 Temp (Src) 97.9 (Temporal) Ht 5' 5 (1.65m) Wt 109 lb (49.4kg) SpO2 99% BMI 18.14 kg/(m2). GENERAL APPEARANCE: Well appearing, in no acute distress, alert and oriented x3, well-hydrated, well nourished. I spent a total of 30 minutes on the date of the service which included preparing to see the patient, [id number] patient care, completing clinical documentation, obtaining and/or reviewing separately obtained history, counseling and educating the patient/family/caregiver, ordering medications, tests, or procedures, communicating with other HCPs (not separately reported), and communicating results to the patient/family/caregiver. Electronically Signed: Stu Schaeffer MD January 25, 2023 1:08 PM [facility] 01-25-2023 History of Presen t illness Narrative HISTORY OF PRESENT ILLNESS: Ainsley Sorenson is a 87 year old female history of anemia, iron deficincy, likely due to GI blood loss. She has dementia, no work up of GI is planned. Labs reviewed, iron pills cause bad diarrhea, CLINICAL IMPRESSION: NEHEMIAH likely due to GI blood loss RECOMMENDATION/PLAN: 1. Plan IV iron replacement for at tleast palliation of anemia Written and verbal health teaching given to patient, patient verbalizes understanding and agrees with treatment plan. 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 CKD (chronic kidney disease), stage III (HCC) 05/17/2018 Diverticulosis of colon (without mention of hemorrhage) Essential hypertension, benign Gout attack 12/2014 R great toe Hyperlipidemia LDL goal <100 03/20/2016 Kidney stones Left carotid bruit 04/14/2017 Other symptoms involving cardiovascular system Uterovaginal prolapse PAST SURGICAL HISTORY Procedure Laterality Date COLONOSCOPY FLX DX W/COLLJ SPEC WHEN PFRMD 04/07/2012 Colonoscopy repeat 10 years DILATION & CURETTAGE DX&/THER NONOBSTETRIC Dilation & curettage LAPAROSCOPIC TUBAL LIGATION/RING/CLIP FAMILY HISTORY Problem Relation Age of Onset other (cerebral hemorrhage) Mother Diabetes Father Stroke Father Social History Tobacco Use Smoking status: Former Packs/day: 0.50 Years: 20.00 Additional pack years: 0.00 Total pack years: 10.00 Types: Cigarettes Quit date: 1992 Years since quittin.8 Smokeless tobacco: Never Vaping Use Vaping Use: Never used Substance Use Topics Alcohol use: No Drug use: No ALLERGIES: ALLERGIES Allergen Reactions Augmentin [Amoxicil* Diarrhea Ciprofloxacin Rash Levaquin [Levofloxa* Rash itching rash CURRENT OUTPATIENT MEDICATIONS: allopurinol (ZYLOPRIM) 100 mg tablet Take 1 tablet by mouth once daily. For gout. levothyroxine (LEVOXYL) 50 mcg tablet Take 1 tablet by mouth once daily. Take on empty stomach. For Thyroid sertraline (ZOLOFT) 25 mg tablet Take 1 tablet by mouth once daily. rivastigmine tartrate (EXELON) 6 mg capsule Take 1 capsule by mouth twice daily with meals. loperamide HCl (IMODIUM) 2 mg tab Take 2 each morning. May take another 2 later in the day, as needed. ferrous sulfate 325 mg (65 mg iron) tablet Take 1 tablet by mouth daily with breakfast. MEDICAL SUPPLY Blood pressure monitor weight of pt 103# Blood Pressure Monitor (BLOOD PRESSURE KIT) 1 Each once daily. potassium chloride ER (K-DUR, KLOR-CON) 20 mEq tablet Take 1 tablet by mouth once daily aspirin, enteric coated (ASPIRIN, ENTERIC COATED) 81 mg EC tablet Take 1 tablet by mouth once daily. Hkyhcqdwimvfr-Ehqhpizk-Ixosws (CENTRUM SILVER) ORAL Tab Take one(1) tablet daily. REVIEW OF SYSTEMS: GENERAL: No fever, night sweats, weight loss or malaise. All other reviewed and negative other than HPI. PHYSICAL EXAMINATION: VITAL SIGNS: BP 165/74 Pulse 67 Temp (Src) 97.9 (Temporal) Ht 5' 5 (1.65m) Wt 109 lb (49.4kg) SpO2 99% BMI 18.14 kg/(m^2). GENERAL APPEARANCE: Well appearing, in no acute distress, alert and oriented x3, well-hydrated, well nourished. I spent a total of 30 minutes on the date of the service which included preparing to see the patient, [id number] patient care, completing clinical documentation, obtaining and/or reviewing separately obtained history, counseling and educating the patient/family/caregiver, ordering medications, tests, or procedures, communicating with other HCPs (not separately reported), and communicating results to the patient/family/caregiver. Electronically Signed: Stu Schaeffer MD January 25, 2023 1:08 PM documented in this encounter [facility] 01-07-2023 Miscellaneous Notes Pt scheduled by another PSS LM for a return call. When she calls, please schedule first available JIG FITTER re: anemia that works for the patient. Johanna Carlson OK to schedule with first available. Alexandra Michel RN Please review and advise. CONSULT TO HEMATOLOGY Status: Needs Scheduling Requested appt date: Authorizing: Zoran Dumont PA-C in [facility] Referral: [id number] (Authorized) Expires: 01/04/2024 Priority: Routine Diagnosis: Iron deficiency anemia, unspecified iron deficiency anemia type [D50.9] Comments Pt's provider would like pt to see Hematology. Due to anemia, iron deficiency. Zoran Dumont Please advise? documented in this encounter [facility] 01-04-2023 Note HNO ID: [id number] Author: Zoran Dumont PA-C Service: ? Author Type: Physician Brush Worker Type: Progress Notes Filed: 01/05/2023 12:20 PM Note Text: CC: Patient presents with: Follow Up: labs,urine,confusion Immunizations: Flu vaccination HPI Ainsley Sorenson is a 87 year old female who presents today with daughter, Jillian, for 6 wk f/u regarding anemia. This daughter who takes her to all her appts, has to drive in from [place] and states it's a lot every time she has a doctor's appt. PMH significant for Alzheimer's- she was diagnosed ~3.5 years ago. Pt typically lives alone, but lives across the street from her other daughter, Paige, who serves as her primary caregiver. LV was on 11/13/22. At prior visit labs were ordered to check up on status of anemia/Hgb following- pt was referred to GI d/t concern for probable blood loss in the GI tract. Daughter reports that they didn't go through with GI referral, as they didn't suspect she would do well with colonoscopy, or additional work-up regarding this. From HPI prior visit on 11/13/22: Patient was last evaluated in office on 08/21/2022. At that time labs were ordered, but were not obtained until 11/09/2022. On those labs, hemoglobin was 5.5. Patient was completely asymptomatic, so she presented for transfusion (2 units) on 11/11/2022. Urine was also checked at previous visit due to acutely worse confusion. Urine culture came back as positive for borderline UTI so we went ahead and txed her with Keflex. Acute confusion improved. Patient is back on iron tablets (started after prior visit), and she has been taking them consistently but starting to have diarrhea and subsequent accidents, so they have since tapered back to one iron every other day. REVIEW OF SYSTEMS Denies any palpitations, CP, SOB, palpitations, lightheadedness or other associated sx. All other systems negative. 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 CKD (chronic kidney disease), stage III (HCC) 05/17/2018 Diverticulosis of colon (without mention of hemorrhage) Essential hypertension, benign Gout attack 12/2014 R great toe Hyperlipidemia LDL goal <100 03/20/2016 Kidney stones Left carotid bruit 04/14/2017 Other symptoms involving cardiovascular system Uterovaginal prolapse PAST SURGICAL HISTORY Procedure Laterality Date COLONOSCOPY FLX DX W/COLLJ SPEC WHEN PFRMD 04/07/2012 Colonoscopy repeat 10 years DILATION AND CURETTAGE DXAND/THER NONOBSTETRIC Dilation AND curettage LAPAROSCOPIC TUBAL LIGATION/RING/CLIP ALLERGIES Augmentin [Amoxicillin-Pot Clavulanate], Ciprofloxacin, and Levaquin [Levofloxacin] MEDICATIONS allopurinol (ZYLOPRIM) 100 mg tablet Take 1 tablet by mouth once daily. For gout. aspirin, enteric coated (ASPIRIN, ENTERIC COATED) 81 mg EC tablet Take 1 tablet by mouth once daily. Blood Pressure Monitor (BLOOD PRESSURE KIT) 1 Each once daily. ferrous sulfate 325 mg (65 mg iron) tablet Take 1 tablet by mouth daily with breakfast. levothyroxine (LEVOXYL) 50 mcg tablet Take 1 tablet by mouth once daily. Take on empty stomach. For Thyroid loperamide HCl (IMODIUM) 2 mg tab Take 2 each morning. May take another 2 later in the day, as needed. MEDICAL SUPPLY Blood pressure monitor weight of pt 103# Tkdsiraryzejg-Jgoltgtg-Rjhkmw (CENTRUM SILVER) ORAL Tab Take one(1) tablet daily. potassium chloride ER (K-DUR, KLOR-CON) 20 mEq tablet Take 1 tablet by mouth once daily rivastigmine tartrate (EXELON) 6 mg capsule Take 1 capsule by mouth twice daily with meals. sertraline (ZOLOFT) 25 mg tablet Take 1 tablet by mouth once daily. FAMILY HISTORY Problem Relation Age of Onset other (cerebral hemorrhage) Mother Diabetes Father Stroke Father Social History Tobacco Use Smoking status: Former Smokeless tobacco: Never Vaping Use Vaping Use: Never used Substance Use Topics Alcohol use: No Drug use: No PHYSICAL EXAM BP 102/52 (BP Site: Right Arm, BP Position: Sitting, BP Cuff Size: Regular Adult) Pulse 80 Temp 36.2 ?C (97.2 ?F) Resp 12 Ht 167.6 cm (5' 6 ) Wt 46.3 kg (102 lb) SpO2 100% BMI 16.46 kg/m? General Appearance: well appearing, in no acute distress, alert, very thin, pleasant Psych: mood and affect broad and appropriate Skin: Skin color, texture, turgor normal for age Lungs: Lungs clear to auscultation. No wheezing, rhonchi, rales. Heart: RRR without murmur, gallop, or rubs. Extremities: No gross deformities, significant edema, skin discoloration, clubbing or cyanosis. Neurological: Gait normal. No focal neurological deficits. Sensation grossly intact. ASSESSMENT/PLAN: 1. Iron deficiency anemia, unspecified iron deficiency anemia type - ICD9: 280.9, ICD10: D50.9 (primary diagnosis) Unclear cause, but suspect be secondary to blood loss in the GI tract. We will check updated labs today. Due to progressi (more content not included)... [facility] 01-04-2023 History of Presen t illness Narrative CC: Patient presents with: Follow Up: labs,urine,confusion Immunizations: Flu vaccination [facility] Ainsley Sorenson is a 87 year old female who presents today with daughter, Jillian, for 6 wk f/u regarding anemia. This daughter who takes her to all her appts, has to drive in from [place] and states it's a lot every time she has a doctor's appt. PMH significant for Alzheimer's- she was diagnosed ~3.5 years ago. Pt typically lives alone, but lives across the [address] from her other daughter, Paige, who serves as her primary caregiver. LV was on 11/13/22. At prior visit labs were ordered to check up on status of anemia/Hgb following- pt was referred to GI d/t concern for probable blood loss in the GI tract. Daughter reports that they didn't go through with GI referral, as they didn't suspect she would do well with colonoscopy, or additional work-up regarding this. From [facility] prior visit on 11/13/22: Patient was last evaluated in office on 08/21/2022. At that time labs were ordered, but were not obtained until 11/09/2022. On those labs, hemoglobin was 5.5. Patient was completely asymptomatic, so she presented for transfusion (2 units) on 11/11/2022. Urine was also checked at previous visit due to acutely worse confusion. Urine culture came back as positive for borderline UTI so we went ahead and txed her with Keflex. Acute confusion improved. Patient is back on iron tablets (started after prior visit), and she has been taking them consistently but starting to have diarrhea and subsequent accidents, so they have since tapered back to one iron every other day. REVIEW OF SYSTEMS Denies any palpitations, CP, SOB, palpitations, lightheadedness or other associated sx. All other systems negative. 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 CKD (chronic kidney disease), stage III (HCC) 05/17/2018 Diverticulosis of colon (without mention of hemorrhage) Essential hypertension, benign Gout attack 12/2014 R great toe Hyperlipidemia LDL goal <100 03/20/2016 Kidney stones Left carotid bruit 04/14/2017 Other symptoms involving cardiovascular system Uterovaginal prolapse PAST SURGICAL HISTORY Procedure Laterality Date COLONOSCOPY FLX DX W/COLLJ SPEC WHEN PFRMD 04/07/2012 Colonoscopy repeat 10 years DILATION & CURETTAGE DX&/THER NONOBSTETRIC Dilation & curettage LAPAROSCOPIC TUBAL LIGATION/RING/CLIP ALLERGIES Augmentin [Amoxicillin-Pot Clavulanate], Ciprofloxacin, and Levaquin [Levofloxacin] MEDICATIONS allopurinol (ZYLOPRIM) 100 mg tablet Take 1 tablet by mouth once daily. For gout. aspirin, enteric coated (ASPIRIN, ENTERIC COATED) 81 mg EC tablet Take 1 tablet by mouth once daily. Blood Pressure Monitor (BLOOD PRESSURE KIT) 1 Each once daily. ferrous sulfate 325 mg (65 mg iron) tablet Take 1 tablet by mouth daily with breakfast. levothyroxine (LEVOXYL) 50 mcg tablet Take 1 tablet by mouth once daily. Take on empty stomach. For Thyroid loperamide HCl (IMODIUM) 2 mg tab Take 2 each morning. May take another 2 later in the day, as needed. MEDICAL SUPPLY Blood pressure monitor weight of pt 103# Wyknvfrxinkwf-Yheyfpyu-Jdpxhk (CENTRUM SILVER) ORAL Tab Take one(1) tablet daily. potassium chloride ER (K-DUR, KLOR-CON) 20 mEq tablet Take 1 tablet by mouth once daily rivastigmine tartrate (EXELON) 6 mg capsule Take 1 capsule by mouth twice daily with meals. sertraline (ZOLOFT) 25 mg tablet Take 1 tablet by mouth once daily. FAMILY HISTORY Problem Relation Age of Onset other (cerebral hemorrhage) Mother Diabetes Father Stroke Father Social History Tobacco Use Smoking status: Former Smokeless tobacco: Never Vaping Use Vaping Use: Never used Substance Use Topics Alcohol use: No Drug use: No PHYSICAL EXAM BP 102/52 (BP Site: Right Arm, BP Position: Sitting, BP Cuff Size: Regular Adult) Pulse 80 Temp 36.2 C (97.2 F) Resp 12 Ht 167.6 cm (5' 6 ) Wt 46.3 kg (102 lb) SpO2 100% BMI 16.46 kg/m General Appearance: well appearing, in no acute distress, alert, very thin, pleasant Psych: mood and affect broad and appropriate Skin: Skin color, texture, turgor normal for age Lungs: Lungs clear to auscultation. No wheezing, rhonchi, rales. Heart: RRR without murmur, gallop, or rubs. Extremities: No gross deformities, significant edema, skin discoloration, clubbing or cyanosis. Neurological: Gait normal. No focal neurological deficits. Sensation grossly intact. ASSESSMENT/PLAN: 1. Iron deficiency anemia, unspecified iron deficiency anemia type - ICD9: 280.9, ICD10: D50.9 (primary diagnosis) Unclear cause, but suspect be secondary to blood loss in the GI tract. We will check updated labs today. Due to progressive Alzheimer's, patient's daughter does not feel it is appropriate to move forward with colonoscopy. She also is having issues with oral iron (diarrhea, and fecal incontinence), so I explained that it would be best that we refer to hematology so they can discuss possible iron infusions as an alternative. Referral to hematology placed. - CONSULT TO HEMATOLOGY 2. 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) - ICD9: 331.0, 294.10, ICD10: G30.1, F02.80 acute confusion resolved since recent course of Keflex for low level UTI 3. Gout with manifestations - ICD9: 274.89, ICD10: M10.9 Refills provided on allopurinol per patient request 4. Need for influenza vaccination - ICD9: V04.81, ICD10: Z23 - INFLUENZA VACCINE, PRSV FREE, AGE 65+ YR, HIGH DOSE, QUADRIVALENT (FLUZONE HIGH-DOSE) Follow-up 3 months routine issues Prescription instructions reviewed with patient as applicable. Potential red flag symptoms discussed with the patient. Reviewed appropriate action plan to take if red flag symptoms occur. Patient agreeable to treatment plan. Zoran Dumont PA-C documented in this encounter [facility] 11-17-2022 Miscellaneous Notes Rx sent. Patient's daughter stated patient is having frequency and fatigue. They are ok with treatment, pharmacy is [facility] LPN Please call patient's daughter and let her know it wasn't a clear cut infection (usually >100,000 CFUs) but if she's having symptoms we can treat her. Because of the confusion, wondering if we should go ahead and treat her. See what the doctor thinks about this- if this sounds okay, have her confirm the pharmacy please. Zoran Dumont PA-C Daughter, Jillian, reports patient gave a urine sample on Wednesday, and asking provider to review and advise on those results. Please phone Jillian with reply: [phone] documented in this encounter [facility] 11-13-2022 History of Presen t illness Narrative CC: Patient presents with: Follow Up: HTN and blood work, had blood transfusion was on Wednesday due to low hemoglobin HPI Ainsley Sorenson is a 87 year old female who presents today for follow-up. Patient was last evaluated in office on 08/21/2022. At that time labs were ordered, but were not obtained until 11/09/2022. On those labs, hemoglobin was 5.5. Patient was completely asymptomatic, so she presented for transfusion (2 units) on 11/11/2022. Her daughter reports that she's been more confused the last two days. Also states that she Upon further review, pt was overdue for colonoscopy as last one was in 2012 and was +for polyps- was advised to have repeat in 5 years. Had FIT test done most recently in 02/10, which was positive, but no further investigation was done at that time. REVIEW OF SYSTEMS See HPI All other systems negative. 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 CKD (chronic kidney disease), stage III (HCC) 05/17/2018 Diverticulosis of colon (without mention of hemorrhage) Essential hypertension, benign Gout attack 12/2014 R great toe Hyperlipidemia LDL goal <100 03/20/2016 Kidney stones Left carotid bruit 04/14/2017 Other symptoms involving cardiovascular system Uterovaginal prolapse PAST SURGICAL HISTORY Procedure Laterality Date COLONOSCOPY FLX DX W/COLLJ SPEC WHEN PFRMD 04/07/2012 Colonoscopy repeat 10 years DILATION & CURETTAGE DX&/THER NONOBSTETRIC Dilation & curettage LAPAROSCOPIC TUBAL LIGATION/RING/CLIP ALLERGIES Augmentin [Amoxicillin-Pot Clavulanate], Ciprofloxacin, and Levaquin [Levofloxacin] MEDICATIONS sertraline (ZOLOFT) 25 mg tablet Take 1 tablet by mouth once daily. MEDICAL SUPPLY Blood pressure monitor weight of pt 103# Blood Pressure Monitor (BLOOD PRESSURE KIT) 1 Each once daily. levothyroxine (LEVOXYL) 50 mcg tablet Take 1 tablet by mouth once daily. Take on empty stomach. For Thyroid potassium chloride ER (K-DUR, KLOR-CON) 20 mEq tablet Take 1 tablet by mouth once daily rivastigmine tartrate (EXELON) 6 mg capsule Take 1 capsule by mouth twice daily with meals. allopurinol (ZYLOPRIM) 100 mg tablet Take 1 tablet by mouth once daily. For gout. ferrous sulfate 325 mg (65 mg iron) tablet Take 1 tablet by mouth daily with breakfast. Oxyquinoline-Na Lauryl Sulfate (TRIMO-FRANCISCO JELLY) 0.025-0.01 % gel Use 1 application vaginally at bedtime as needed. omeprazole (PRILOSEC) 20 mg capsule Take 1 capsule by mouth daily before breakfast. 1/2 hr before meal. loperamide HCl (IMODIUM) 2 mg tab Take 2 each morning. May take another 2 later in the day, as needed. magnesium oxide 200 mg magnesium tab Take 1 tablet by mouth once daily. aspirin, enteric coated (ASPIRIN, ENTERIC COATED) 81 mg EC tablet Take 1 tablet by mouth once daily. Pznwpgfytgaeu-Lqvzgpsa-Lqxmfp (CENTRUM SILVER) ORAL Tab Take one(1) tablet daily. FAMILY HISTORY Problem Relation Age of Onset other (cerebral hemorrhage) Mother Diabetes Father Stroke Father Social History Tobacco Use Smoking status: Former Smokeless tobacco: Never Vaping Use Vaping Use: Never used Substance Use Topics Alcohol use: No Drug use: No PHYSICAL EXAM BP 140/70 (BP Site: Right Arm, BP Position: Sitting, BP Cuff Size: Regular Adult) Pulse 84 Temp 36.7 C (98 F) Resp 12 Ht 167.6 cm (5' 6 ) Wt 44.9 kg (99 lb) SpO2 98% BMI 15.98 kg/m General Appearance: well appearing, in no acute distress, alert, very thin Pysch: mood and affect broad and appropriate Skin: Skin color, texture, turgor normal for age Lungs: Lungs clear to auscultation. No wheezing, rhonchi, rales. Heart: RRR without murmur, gallop, or rubs. No ectopy Abdomen: Normoactive bowel sounds; Normal abdominal exam. No tenderness with palpation, rigidity, guarding or rebound. Extremities: No gross deformities, significant edema, skin discoloration, clubbing or cyanosis. Neurological: Gait normal. No focal neurological deficits. Sensation grossly intact. ASSESSMENT/PLAN: 1. Microcytic anemia - ICD9: 280.9, ICD10: D50.9 (primary diagnosis) Critical result with hemoglobin at 5.5 on 11/09/2022. Had transfusion performed on 11/11/2022, with some subsequent confusion following. We will recheck labs. Concern for occult GI bleed due to this, as well as previously positive fit test, patient needs further evaluation and management by GI. Referral placed. - CONSULT TO GASTROENTEROLOGY - CBC + DIFF - FERRITIN BLD - IRON + TIBC 2. History of recent blood transfusion - ICD9: V15.89, ICD10: Z92.89 See above - CONSULT TO GASTROENTEROLOGY - CBC + DIFF - FERRITIN BLD - IRON + TIBC 3. Acute confusion - ICD9: 293.0, ICD10: R41.0 We will check urine to rule out UTI - UA DIP B/O - URINE CULTURE Follow-up in 4 to 6 weeks Prescription instructions reviewed with patient as applicable. Potential red flag symptoms discussed with the patient. Reviewed appropriate action plan to take if red flag symptoms occur. Patient agreeable to treatment plan. Zoran Dumont PA-C documented in this encounter [facility] 11-10-2022 Miscellaneous Notes Zoran, looks like she is seeing you 11/13. Called pts daughter to review the procedure for this. Also called [facility] outpt infusion to let them know also. Order faxed and they will call pt to arrange for both the lab draw and the transfusion. Fyi to [facility] for 11/13/22 appt.(Nothing else is needed at this time.) Daughter (Jillian) returns call and below message reviewed. Jillian reports that patient has dementia and wouldn't be able to answer the below questions but she did speak with her this morning and she said she felt well and didn't complain of anything. Jillian manages health care and reports that she would want patient to have the out patient blood transfusion. Patient has an appointment on Wednesday11/13/2022 with Zoran Dumont and would further discuss GI consult at that appointment. Jillian lives in [place] and works so will have to juggle that in order to get patient to an appointment. Please call Jillian at [phone] to schedule once orders are placed. Saumya Maldonado RN Phoned patient and left vm on vm identified as Jillian, asking Jillian to call nurse for provider message, regarding Ainsley. Paged for critical Hgb. This is routine draw for 11/13/22. I left message on cell about critical result. Seek attention immediately if ill. If not ill, wait for message from office this morning. Plan: If ill or with symptoms like dyspnea, chest pain, abdominal pain, go to ER. If stable, set up outpatient PRBC 2 units with post transfusion CBC. Consider GI consult, which I see has been declined in the past. documented in this encounter [facility] 08-21-2022 History of Presen t illness Narrative CC: Patient presents with: Recheck: Follow up, review labs and BP HPI Ainsley Sorenson is a 86 year old female who presents today for routine follow up. Is accompanied by her daughter. Patient lives alone but other daughter lives across the street and comes over daily to check on mother, help with anything needed, and laborer cook house. Last appointment with PCP zoloft decreased because of fatigue and lisinopril stopped because of low blood pressure. HTN: Ms. Sorenson indicates that she is feeling well and denies any symptoms referable to elevated blood pressure. Specifically denies headache, chest pain, palpitations, dyspnea, and peripheral edema. She does not check BP's generally. Last 3 Encounter BP Readings: Date: BP: 08/21/2022 132/52 05/29/2022 98/42 01/30/2022 94/56 Depression is reported as being well controlled even iwht lower dose of zoloft and fatigue has improved. Sleep: is described as normal Alcohol use: does not drink any alcohol Drug use: No Appetite: good Stresses: Denies any major stressor. Suicidal Thoughts: No suicidal ideation, intent or plan Support: Comes from multiple sources including family Hypothyroidism: takes medication as prescribed. TSH normal ranges. Denies any fatigue, abnormal changes in weight. Daughter concerned as she feels Iron is causing increase in chronic diarrhea which is resulting in incontinence. Is asking if we can stop the iron at this time to see if there is any improvement. Was started on iron last fall for chronic anemia. Denies any abnormal bleeding, dark stools, blood in stools, vaginal bleeding, or blood in urine. Denies any nausea, vomiting, or abdominal pain. REVIEW OF SYSTEMS General: no fevers, no chills, no night sweats, no recurrent infections, no change in appetite, no change in energy, and no significant changes in weight Respiratory: no cough, no wheezing, no shortness of breath, no hemoptysis Cardiovascular: no chest pain, no chest pressure, no palpitations, and no swelling GI: See HPI Neurologic: No headache, weakness, numbness, tingling, dizziness, memory loss, syncope. 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 CKD (chronic kidney disease), stage III (HCC) 05/17/2018 Diverticulosis of colon (without mention of hemorrhage) Essential hypertension, benign Gout attack 12/2014 R great toe Hyperlipidemia LDL goal <100 03/20/2016 Kidney stones Left carotid bruit 04/14/2017 Other symptoms involving cardiovascular system Uterovaginal prolapse PAST SURGICAL HISTORY Procedure Laterality Date COLONOSCOPY FLX DX W/COLLJ SPEC WHEN PFRMD 04/07/2012 Colonoscopy repeat 10 years DILATION & CURETTAGE DX&/THER NONOBSTETRIC Dilation & curettage LAPAROSCOPIC TUBAL LIGATION/RING/CLIP ALLERGIES Augmentin [Amoxicillin-Pot Clavulanate], Ciprofloxacin, and Levaquin [Levofloxacin] MEDICATIONS sertraline (ZOLOFT) 50 mg tablet Take 0.5 tablets by mouth once daily. levothyroxine (LEVOXYL) 50 mcg tablet Take 1 tablet by mouth once daily. Take on empty stomach. For Thyroid rivastigmine tartrate (EXELON) 6 mg capsule Take 1 capsule by mouth twice daily with meals. allopurinol (ZYLOPRIM) 100 mg tablet Take 1 tablet by mouth once daily. For gout. MEDICAL SUPPLY Blood pressure monitor weight of pt 103# Blood Pressure Monitor (BLOOD PRESSURE KIT) 1 Each once daily. potassium chloride ER (K-DUR, KLOR-CON) 20 mEq tablet Take 1 tablet by mouth once daily ferrous sulfate 325 mg (65 mg iron) tablet Take 1 tablet by mouth daily with breakfast. Oxyquinoline-Na Lauryl Sulfate (TRIMO-FRANCISCO JELLY) 0.025-0.01 % gel Use 1 application vaginally at bedtime as needed. omeprazole (PRILOSEC) 20 mg capsule Take 1 capsule by mouth daily before breakfast. 1/2 hr before meal. loperamide HCl (IMODIUM) 2 mg tab Take 2 each morning. May take another 2 later in the day, as needed. magnesium oxide 200 mg magnesium tab Take 1 tablet by mouth once daily. aspirin, enteric coated (ASPIRIN, ENTERIC COATED) 81 mg EC tablet Take 1 tablet by mouth once daily. Yugdxtyoqzrcs-Elnsfyxw-Xulekd (CENTRUM SILVER) ORAL Tab Take one(1) tablet daily. FAMILY HISTORY Problem Relation Age of Onset other (cerebral hemorrhage) Mother Diabetes Father Stroke Father Social History Tobacco Use Smoking status: Former Smokeless tobacco: Never Vaping Use Vaping Use: Never used Substance Use Topics Alcohol use: No Drug use: No PHYSICAL EXAM BP 132/52 Pulse 72 Temp 37.1 C (98.8 F) (Temporal) Resp 16 Wt 45.4 kg (100 lb) SpO2 99% BMI 16.14 kg/m General Appearance: well appearing, in no acute distress, alert Pysch: mood and affect broad and appropriate Skin: Skin color, texture, turgor normal for age; Eyes: conjunctiva pink and moist, no icterus, sclera white, non-injected Neck: Thyroid normal size and symmetric without palpable nodules, Neck supple, No adenopathy Lymph nodes: No cervical lymphadenopathy and No supraclavicular lymphadenopathy Lungs: Lungs clear to auscultation. No wheezing, rhonchi, rales. Heart: RRR without murmur, gallop, or rubs. No ectopy Abdomen: Abdomen soft, non-tender. Bowel sounds normal. No masses, organomegaly Health maintenance reviewed with patient: SHINGRIX VACCINE(1 of 2) Never done COVID-19 VACCINE(4 - Booster for Pfizer series) due on 04/09/2021 ADVANCE DIRECTIVE DISCUSSION Never done DIABETES SCREEN due on 05/08/2025 DTAP,TDAP,TD(3 - Td or Tdap) due on 09/02/2030 BONE DENSITY Completed PNEUMOCOCCAL: 65+ Completed INFLUENZA Discontinued DATA REVIEWED: Most recent labs ASSESSMENT/PLAN: 1. Essential hypertension, benign - ICD9: 401.1, ICD10: I10 (primary diagnosis) - Controlled - Recommend home blood pressure monitoring, to bring results to next visit - Encouraged sodium restriction, DASH or Mediterranean diet - Recommend regular aerobic exercise - CBC + DIFF - BASIC METABOLIC PNL 2. Major depressive disorder with single episode, in full remission (HCC) - ICD9: 296.26, ICD10: F32.5 - controlled with current treatment - SERTRALINE 25 MG TABLET - Reviewed concept of neurochemical imbalance wth depression/anxiety, treatment options and benefits of counseling in combination with medication. Also reviewed benefits of sleep hygeine, diet and exercise - Instructed patient to contact office or [id number] after-hours promptly should condition worsen or any new symptoms appear. - Counseling Center [facility] and after hours crisis line 3. Chronic anxiety - ICD9: 300.00, ICD10: F41.9 As above - SERTRALINE 25 MG TABLET 4. Anemia, unspecified type - ICD9: 285.9, ICD10: D64.9 - ok to hold iron at this time - will recheck levels in 4 weeks - CBC + DIFF - BASIC METABOLIC PNL - follow up in 6 months to see if tolerating, if worsened anemia or symptoms will need to restart iron and add stool thickener to try and counteract the diarrhea 5. Hypothyroidism, unspecified type - ICD9: 244.9, ICD10: E03.9 - Instructed patient on importance of taking on an empty stomach either first thing in the morning or at bedtime. - asymptomatic and therapeutic level Prescription instructions reviewed with patient as applicable. Potential red flag symptoms discussed with the patient. Reviewed appropriate action plan to take if red flag symptoms occur. Patient agreeable to treatment plan. Shonda Tyler APRN.SABIHA documented in this encounter [facility] 06-05-2022 Miscellaneous Notes Addended by: SHONDA TYLER on: 06/05/2022 12:24 PM Modules accepted: Orders Suzy Granddaughter called and they need prescription for blood pressure unit to be sent to [facility]. [facility] does not carry them. [facility] needs a new order see below to be escripted to them. I have already sent insurance cards/demographics sheet and she said they do not need OV. Just waiting on order to be faxed. Iliana Mata LPN documented in this encounter [facility] 05-29-2022 History of Presen t illness Narrative Reason for Visit Patient presents with: F/U 6 months Ainsley Sorenson is a 86 year old female who presents here today for Above Complaints.. Health Maintenance SHINGRIX VACCINE(1 of 2) COVID-19 VACCINE(4 - Booster for Pfizer series) ADVANCE DIRECTIVE DISCUSSION HPI Ainsley is a very pleasant 86-year-old with a granddaughter. Her daughter who usually accompanies her is not here today but was on the phone with us There are 3 main issues to be addressed today anemia, fatigue, blood pressure being on the lower side. Anemia: From her labs last time it seemed like she was iron deficient and her iFOBT was positive. Patient declined having colonoscopy and EGD especially because she has some early dementia and at 86 with declining weight and overall did not being the past daughter does not feel it would account for enough quality of life to put her through the scopes especially because she does not think she will be able to go through them. More investigations today were done and we discussed iron infusions. But I did explain to the granddaughter that if she is bleeding from somewhere if we do not stop that place then she will not benefit from just iron replacements. Prilosec is on patient's med list but patient granddaughter does not believe she is taking it. We asked her to confirm if the patient is on this medication. Fatigue: patient is taking the zoloft and exelon and both of them make her groggy. When she is off zoloft she is very depressed. We reviewed her TSH it seems that she has not been controlled for the past few months. Her TSH is always on the higher side. She has not been taking her thyroid medication on a regular basis and regular time. We discussed increasing the medicine Blood pressure is on the lower especially with today's blood pressure being just blood pressure of 98 x 42. She is not drinking water very well and we encourage that. We also discussed getting her off the lisinopril and keeping a good watch of her blood pressures to make sure they are not too high and to reinstate if they are elevated. We could start at a lower dose of 2.5 or 5 of lisinopril her granddaughter who is in agreement with this plan No problem-specific Assessment & Plan notes found for this encounter. 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 CKD (chronic kidney disease), stage III (HCC) 05/17/2018 Diverticulosis of colon (without mention of hemorrhage) Essential hypertension, benign Gout attack 12/2014 R great toe Hyperlipidemia LDL goal <100 03/20/2016 Kidney stones Left carotid bruit 04/14/2017 Other symptoms involving cardiovascular system Uterovaginal prolapse PAST SURGICAL HISTORY Procedure Laterality Date COLONOSCOPY FLX DX W/COLLJ SPEC WHEN PFRMD 04/07/2012 Colonoscopy repeat 10 years DILATION & CURETTAGE DX&/THER NONOBSTETRIC Dilation & curettage LAPAROSCOPIC TUBAL LIGATION/RING/CLIP FAMILY HISTORY Problem Relation Age of Onset other (cerebral hemorrhage) Mother Diabetes Father Stroke Father Social History Tobacco Use Smoking status: Former Smokeless tobacco: Never Vaping Use Vaping Use: Never used Substance Use Topics Alcohol use: No Drug use: No Past medical history, appointments, medications, allergies reviewed. Pertinent Lab/Diagnostic Studies are reviewed and discussed today Current Outpatient Medications: potassium chloride ER (K-DUR, KLOR-CON) 20 mEq tablet rivastigmine tartrate (EXELON) 6 mg capsule levothyroxine (LEVOXYL) 25 mcg tablet sertraline (ZOLOFT) 50 mg tablet allopurinol (ZYLOPRIM) 100 mg tablet ferrous sulfate 325 mg (65 mg iron) tablet lisinopril (ZESTRIL, PRINIVIL) 10 mg tablet Oxyquinoline-Na Lauryl Sulfate (TRIMO-FRANCISCO JELLY) 0.025-0.01 % gel omeprazole (PRILOSEC) 20 mg capsule loperamide HCl (IMODIUM) 2 mg tab magnesium oxide 200 mg magnesium tab aspirin, enteric coated (ASPIRIN, ENTERIC COATED) 81 mg EC tablet Mpianbrwqlshf-Zhlsdixr-Jrhlta (CENTRUM SILVER) ORAL Tab Review of Systems CONSTITUTIONAL: No fevers, chills night sweats, unintended weight loss CARDIOVASCULAR: No chest pain, dyspnea, palpitations, orthopnea, PND, ankle edema. PULM: No dyspnea, unexplained cough. GI: No dysphagia/odynophagia, problematic reflux, constipation, diarrhea, changes in stool habits, hematochezia, melena. : No new urinary complaints, including dysuria, gross hematuria or pyuria. NEURO: No new balance problems, peripheral weakness/paresthesias or numbness of concern. Physical Exam BP (!) 98/42 (BP Site: Left Arm, BP Position: Sitting, BP Cuff Size: Regular Adult) Pulse 83 Temp 36.3 C (97.4 F) Resp 12 Ht 167.6 cm (5' 6 ) Wt 46.7 kg (103 lb) SpO2 99% BMI 16.62 kg/m General appearance: Well appearing, alert, in no acute distress, well nourished. Skin: Skin color, texture, turgor normal, no suspicious rashes or lesions Head: Normocephalic, no masses, lesions, tenderness or abnormalities Eyes: Anicteric sclera. Pupils are equally round and reactive to light. Extraocular movements are intact. Lungs: Lungs clear to auscultation. No wheezing, rhonchi, rales Heart: RRR without murmur, gallop, or rubs. Extremities: No deformities, edema, skin discoloration, clubbing or cyanosis. Good capillary refill. ASSESSMENT/PLAN: 1. Anemia, unspecified type - ICD9: 285.9, ICD10: D64.9 (primary diagnosis) - LISINOPRIL 10 MG TABLET - LD LACTATE DEHYDRO - RETIC COUNT - FECAL OCCULT BLOOD TEST - ERYTHROPOIETIN/EPO - IRON + TIBC - FERRITIN BLD 2. Major depressive disorder with single episode, in full remission (HCC) - ICD9: 296.26, ICD10: F32.5 Cutting down the medication has been feeling very sleepy and tired with - SERTRALINE 50 MG TABLET 3. Chronic anxiety - ICD9: 300.00, ICD10: F41.9 - SERTRALINE 50 MG TABLET 4. Hypothyroidism, unspecified type - ICD9: 244.9, ICD10: E03.9 - TSH BLD 5. Essential hypertension, benign - ICD9: 401.1, ICD10: I10 - good control - Recommended regular aerobic exercise. - Recommend home blood pressure monitoring, to bring results in on next visit - Goal of BP <130/80 - MEDICAL SUPPLY Ming Mcknight MD documented in this encounter [facility] 05-04-2022 Miscellaneous Notes Left a detailed message for pt's granddaughter with information listed below. Iliana Mata LPN Last Office Visit: 01/23/2022 Future Office Visit: 05/29/2022 Requested Prescriptions Pending Prescriptions Disp Refills potassium chloride ER (K-DUR, KLOR-CON) 20 mEq tablet [Pharmacy Med Name: Potassium Chloride Brisa ER 20 MEQ Oral Tablet Extended Release] 30 tablet 0 Sig: Take 1 tablet by mouth once daily Date of Last Labs: 01/30/2022 Granddaughter asking if TSH labs can be ordered. Current order expires today and they will not be able to bring patient in to get labs done until Wednesday. documented in this encounter [facility] 02-18-2022 Miscellaneous Notes Left detailed message on secure VM. Please let daughter know that I apologize on the lateness of contacting her but with the holidays I have not been in the office as much as I usually am. I understand her concerns and we can monitor her anemia and any new concerning symptoms she may have. Lets recheck her blood count in 4 weeks to make sure her blood counts remain stable. Thank you Shonda Tyler APRN.CNP Patient daughter Jillian returned call and went over results, notes below from Shonda Tyler J[employer]TER. Daughter said my mother is under 100 hundred pounds and the prep for a colonoscopy would kill her, she can not do a colonoscopy. Daughter would like JIG [employer]TER to call her about this please. Noted Regards, Ming Mcknight MD Left message for return call. Please let patient/daughter know stool was positive for hidden blood. I am consulting her to general surgery for further evaluation. Thank you Shonda Tyler APRN.CNP Suzygabby Sorenson calling for results of stool testing and next step. Please advise. Iliana Mata LPN documented in this encounter [facility] 02-09-2022 Miscellaneous Notes Patient has been identified by name and date of : Yes Patient phones for refill(s): Requested Prescriptions Pending Prescriptions Disp Refills rivastigmine tartrate (EXELON) 6 mg capsule 60 capsule 11 Sig: Take 1 capsule by mouth twice daily with meals. Date of last office visit in primary care: 01/23/2022 Last 2 Encounter Wt Readings: Date: Wt: 01/30/2022 45.4 kg (100 lb) 01/23/2022 45.8 kg (101 lb) Previous labs/tests for medication: Not applicable Please advise. Thank you. Rosa Sylvester LPN Patient has been identified by name and date of : Yes Requested Prescriptions Pending Prescriptions Disp Refills rivastigmine tartrate (EXELON) 6 mg capsule 60 capsule 11 Sig: Take 1 capsule by mouth twice daily with meals. RX INSTRUCTIONS: Patient aware RX will be sent to pharmacy. No need to notify patient. [facility] 01-30-2022 History of Presen t illness Narrative Ainsley Sorenson presents today for pessary insertion/cleaning for prolapse. Her grandaughter is w/ her today. They deny vaginal bleeding or complaines. The alternatives, risks, benefits, and potential complications have been reviewed with the patient. The patient states an understanding of RBAP and consents to proceed with the procedure. . Vaginal Exam: No lesions or erosions a/p uterovaginal prolapse A size 2, Ring with support pessary was removed, cleaned and re-inserted, patient tolerated the procedure well and the device is comfortable. Patient returns for regular cleaning and exam. She was instructed about proper care of the pessary.f/units in 4-6 months. patient w/ progressing dementia. Mindy Mancia MD documented in this encounter [facility] 01-30-2022 Miscellaneous Notes Noted. Thank you for the update. Mindy Mancia MD Patient has an appointment on Wednesday with [facility] for pessary cleaning. Granddaughter called. Patient has alzheimer's and doesn't remember ever having the pessary put in. Granddaughter talked with patient about it again yesterday and today she has already forgotten. Granddaughter will be with her at her visit. Stated that we should treat it like this is the first time putting it in. Angelic Franklin RN documented in this encounter [facility] 01-28-2022 Miscellaneous Notes Daughter notified. Order sent. TSH needs rechecked in 4-6 weeks. Thank you Shonda Tyler APRN.CNP Patient daughter states no thyroid medication has been taken, notified that 25mcg will be sent to [facility]. Levothyroxine 75mcg once daily is still active on patient's medication list, and I do not see in any of dr. Elizabeth's notes to stop this. Please verify for sure she is not taking levothyroxine or any other tyroid medication and then let daughter know I am ordering 25mcg once daily to start with since she has not taken anything in a year. Thank you Shonda Tyler APRN.CNP Pt's daughter Jillian Sorenson returned call & was given results. Jillian states pt has not taken thyroid medication for a couple years, states she was instructed by former pcp to stop taking med. Pt will need a new Rx called to [facility]. Please call daughter when Rx is sent in Paige Quinteros LPN Left message for return call. Please let patient/daughter know her thyroid level indicates she is not getting enough thyroid supplement. Verify she has been taking this every morning as ordered, and if so, Have her take 1.5 tablets on Wednesday and continue one tablet daily on other days. We will recheck level in 6 weeks. Thank you Shonda Tyler APRN.CNP documented in this encounter [facility] 01-26-2022 Miscellaneous Notes Noted, will re-evaluate with updated CBC Shonda Tyler APRN.CNP Spoke with patient's daughter. Given message from provider's office. Patient's daughter verbalizes understanding. She states she will not be available to assist patient with collecting stool sample for a couple weeks. Kerri Becerril RN Left message for patient to call office Please let patient/daughter know that her blood counts were slightly lower than previously. Continue the iron, I am ordering a stool sample to check for blood and also a repeat blood count to be completed later this week as well. Thank you Shonda Tyler APRN.SABIHA documented in this encounter [facility] 01-23-2022 History of Presen t illness Narrative CC: Patient presents with: Recheck: Follow up, review labs HPI Ainsley Sorenson is a 86 year old female who presents today for lab review. Was last seen by Dr. Mcknight 2 months ago and had routine labs completed 1 month prior. HGB showed anemia of hgb 10.4 but had not been previously checked for 3 years. No history of iron edeficiency anemia but started on iron almost 3 weeks ago. Denies any abnormal bleeding. Denies shortness of breath, chest pain, abdominal pain, nausea, vomiting, or diarrhea. Unsure what stool looks like. Does have some tiredness but has had this for quite a while since some of her medications make her sleepy - takes her zoloft in AM. Sleep: is described as normal Appetite: good Stresses: Denies any major stressor. Suicidal Thoughts: No suicidal ideation, intent or plan Support: Comes from multiple sources including Family Late onset dementia: Lives alone and on exelon pills which seems to have slowed down the process. Per daughter she has people that check on her every day, has not stairs, or any unfixed rugs. Patient denies any falls. Some dizziness when first waking up that resolves after 20 minutes or so. Denies any syncope, headaches, weakness, or other episodes of dizziness. REVIEW OF SYSTEMS General: no fevers, no chills, no night sweats, no recurrent infections, no change in appetite, and no significant changes in weight Respiratory: no cough, no wheezing, no shortness of breath, no hemoptysis Cardiovascular: no chest pain, no chest pressure, no palpitations, and no swelling GI: See HPI Neurologic: No headache, weakness, numbness, tingling, dizziness, syncope. 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 CKD (chronic kidney disease), stage III (HCC) 05/17/2018 Diverticulosis of colon (without mention of hemorrhage) Essential hypertension, benign Gout attack 12/2014 R great toe Hyperlipidemia LDL goal <100 03/20/2016 Kidney stones Left carotid bruit 04/14/2017 Other symptoms involving cardiovascular system Uterovaginal prolapse PAST SURGICAL HISTORY Procedure Laterality Date COLONOSCOPY FLX DX W/COLLJ SPEC WHEN PFRMD 04/07/2012 Colonoscopy repeat 10 years DILATION & CURETTAGE DX&/THER NONOBSTETRIC Dilation & curettage LAPAROSCOPIC TUBAL LIGATION/RING/CLIP ALLERGIES Augmentin [Amoxicillin-Pot Clavulanate], Ciprofloxacin, and Levaquin [Levofloxacin] MEDICATIONS allopurinol (ZYLOPRIM) 100 mg tablet Take 1 tablet by mouth once daily. For gout. ferrous sulfate 325 mg (65 mg iron) tablet Take 1 tablet by mouth daily with breakfast. potassium chloride ER (K-DUR, KLOR-CON) 20 mEq tablet Take 1 tablet by mouth once daily. lisinopril (ZESTRIL, PRINIVIL) 10 mg tablet Take 1 tablet by mouth once daily. rivastigmine tartrate (EXELON) 6 mg capsule Take 1 capsule by mouth twice daily with meals. sertraline (ZOLOFT) 50 mg tablet Take 1 tablet by mouth once daily. Oxyquinoline-Na Lauryl Sulfate (TRIMO-FRANCISCO JELLY) 0.025-0.01 % gel Use 1 application vaginally at bedtime as needed. levothyroxine (SYNTHROID) 75 mcg tablet TAKE ONE TABLET BY MOUTH ONCE DAILY ON EMPTY STOMACH FOR THYRIOD omeprazole (PRILOSEC) 20 mg capsule Take 1 capsule by mouth daily before breakfast. 1/2 hr before meal. loperamide HCl (IMODIUM) 2 mg tab Take 2 each morning. May take another 2 later in the day, as needed. magnesium oxide 200 mg magnesium tab Take 1 tablet by mouth once daily. aspirin, enteric coated (ASPIRIN, ENTERIC COATED) 81 mg EC tablet Take 1 tablet by mouth once daily. Nuusjmlvewwsx-Knhdodjl-Qibomt (CENTRUM SILVER) ORAL Tab Take one(1) tablet daily. FAMILY HISTORY Problem Relation Age of Onset other (cerebral hemorrhage) Mother Diabetes Father Stroke Father Social History Tobacco Use Smoking status: Former Smokeless tobacco: Never Vaping Use Vaping Use: Never used Substance Use Topics Alcohol use: No Drug use: No PHYSICAL EXAM BP 118/68 Pulse 64 Resp 16 Wt 45.8 kg (101 lb) BMI 16.30 kg/m General Appearance: well appearing, in no acute distress, alert Pysch: mood and affect broad and appropriate Skin: Skin color, texture, turgor normal for age; Eyes: conjunctiva pink and moist, no icterus, sclera white, non-injected Lungs: Lungs clear to auscultation. No wheezing, rhonchi, rales. Heart: RRR without murmur, gallop, or rubs. No ectopy Health maintenance reviewed with patient: SHINGRIX VACCINE(1 of 2) Never done ADVANCE DIRECTIVE DISCUSSION Never done COVID-19 VACCINE(4 - Booster for Pfizer series) due on 04/09/2021 DIABETES SCREEN due on 11/28/2024 DTAP,TDAP,TD(3 - Td or Tdap) due on 09/02/2030 BONE DENSITY Completed PNEUMOCOCCAL: 65+ Completed INFLUENZA Discontinued DATA REVIEWED: Most recent labs ASSESSMENT/PLAN: 1. Anemia, unspecified type - ICD9: 285.9, ICD10: D64.9 (primary diagnosis) - vitals stable - CBC + DIFF - IRON + TIBC - FERRITIN BLD 2. Prediabetes - ICD9: 790.29, ICD10: R73.03 - A1c of 5.9 which is not concerning for an 86 year old. Discussed with patient and daughter that we will recheck this at least annually for any change, but at her age my concern would be for it to get too low. 3. Major depressive disorder with single episode, in full remission (HCC) - ICD9: 296.26, ICD10: F32.5 - controlled - daughter to trial zoloft before bed in case this is causing daytime sleepiness - SERTRALINE 50 MG TABLET - Reviewed concept of neurochemical imbalance wth depression/anxiety, treatment options and benefits of counseling in combination with medication. Also reviewed benefits of sleep hygeine, diet and exercise - Instructed patient to contact office or [id number] after-hours promptly should condition worsen or any new symptoms appear. - Counseling Center [facility] and after hours crisis line 4. Chronic anxiety - ICD9: 300.00, ICD10: F41.9 controlled - SERTRALINE 50 MG TABLET 5. 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) - ICD9: 331.0, 294.10, ICD10: G30.1, F02.80 - stable and good support group that helps her out - RIVASTIGMINE 6 MG CAPSULE Prescription instructions reviewed with patient as applicable. Potential red flag symptoms discussed with the patient. Reviewed appropriate action plan to take if red flag symptoms occur. Patient agreeable to treatment plan. Shonda Tyler APRN.CNP documented in this encounter [facility] 01-12-2022 Miscellaneous Notes Refilled medication Daughter calling and the last prescription for medication below had to be transferred to [facility]. Daughter spoke with them and they are no refills. Patient has been identified by name and date of : Yes daughter phones for refill(s): Requested Prescriptions Pending Prescriptions Disp Refills allopurinol (ZYLOPRIM) 100 mg tablet 90 tablet 1 Sig: Take 1 tablet by mouth once daily. For gout. Date of last office visit in primary care: 11/28/21 next apt 01/23/22 Last 2 Encounter Wt Readings: Date: Wt: 11/28/2021 47.2 kg (104 lb) 11/26/2021 48.1 kg (106 lb) Previous labs/tests for medication: Not applicable Thank you. Iliana Mata LPN documented in this encounter [facility] 01-05-2022 Miscellaneous Notes Patient's Daughter calls and notified that iron prescription was sent to [facility]. Voices understanding. Johanna Gamez RN I sent some iron medications Take with food Daughter (Jillian) calls to ask if it would be ok for patient to take an iron supplement d/t patient being slightly anemic. She reports patient is often tired and some mornings wakes up a little dizzy (no passing out). If provider agrees what dose would be recommended? Jillian asking for call back at [phone]. Please review and advise, Saumya Maldonado RN documented in this encounter [facility] 12-05-2021 Miscellaneous Notes Spoke with daughter, appointment scheduled ----- Message from Ming Mcknight MD sent at 12/05/2021 1:23 PM EDT ----- Some abnormalities in labs, we can have her in for an apt to discuss or else we can do it at the next apt Nothing very very concerning; Regards, Ming Mcknight MD documented in this encounter [facility] 11-28-2021 History of Presen t illness Narrative Reason for Visit Patient presents with: F/U 6 months Ainsley Sorenson is a 86 year old female who presents here today for Above Complaints. Health Maintenance SHINGRIX VACCINE(1 of 2) ADVANCE DIRECTIVE DISCUSSION COVID-19 VACCINE(4 - Booster for Pfizer series) HPI [place] but does not want to have hearing aids or tests. Here with her daughter, has 3 and all are involved with her care. A very pleasant 85-year-old with setting up with me today she has late onset dementia and was started on rivastigmine and she reports doing better. She also has a history of hypothyroidism, hypertension, gout. She is here with her daughter Her appetite is not as good as befor, she has been loosing a little weight and when she is cooking for someone it helps her a lot more. Patient has to drink his boost. She has a pill dispenser which is filled by her family and she takes Patient notes she loves to be outside working. Has been having Hearing troubles. Late onset dementia: She was started on exelon. She is clearer on the medication than not with out it. She stopped driving as she Is forgetful of directions. She can do all her activities of daily living and instrumental activities of daily living, except, bill paying, patient cooks for herself but has some help. She is not cooking much but is heating her good a lot. Has an injury on arm with tear and Has healed up very well. Patient has cut her arm on the door. Can do her own laundry, house keeping and she also does a lot of gardening. She likes puttering in her flower bed. Anxiety depression: She is taking Zoloft 50 mg daily and is doing well on that medication. Hypothyroidism: We have not checked her TSH in the past year or so when I get her to check that along with the labs that she is going to get for her hypertension. Anemia: In the recent hospital visit at [facility] for UTI she had mild anemia and we need to check on it. No problem-specific Assessment & Plan notes found for this encounter. 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 CKD (chronic kidney disease), stage III (HCC) 05/17/2018 Diverticulosis of colon (without mention of hemorrhage) Essential hypertension, benign Gout attack 12/2014 R great toe Hyperlipidemia LDL goal <100 03/20/2016 Kidney stones Left carotid bruit 04/14/2017 Other symptoms involving cardiovascular system Uterovaginal prolapse PAST SURGICAL HISTORY Procedure Laterality Date COLONOSCOPY FLX DX W/COLLJ SPEC WHEN PFRMD 04/07/2012 Colonoscopy repeat 10 years DILATION & CURETTAGE DX&/THER NONOBSTETRIC Dilation & curettage LAPAROSCOPIC TUBAL LIGATION/RING/CLIP FAMILY HISTORY Problem Relation Age of Onset other (cerebral hemorrhage) Mother Diabetes Father Stroke Father Social History Tobacco Use Smoking status: Former Smokeless tobacco: Never Vaping Use Vaping Use: Never used Substance Use Topics Alcohol use: No Drug use: No Past medical history, appointments, medications, allergies reviewed. Pertinent Lab/Diagnostic Studies are reviewed and discussed today Current Outpatient Medications: doxycycline (VIBRA-TABS) 100 mg tablet potassium chloride ER (K-DUR, KLOR-CON) 20 mEq tablet allopurinol (ZYLOPRIM) 100 mg tablet lisinopril (ZESTRIL, PRINIVIL) 10 mg tablet rivastigmine tartrate (EXELON) 6 mg capsule sertraline (ZOLOFT) 50 mg tablet omeprazole (PRILOSEC) 20 mg capsule loperamide HCl (IMODIUM) 2 mg tab magnesium oxide 200 mg magnesium tab aspirin, enteric coated (ASPIRIN, ENTERIC COATED) 81 mg EC tablet Ucfjyuncsprwk-Vsltdvdc-Imgxwe (CENTRUM SILVER) ORAL Tab Oxyquinoline-Na Lauryl Sulfate (TRIMO-FRANCISCO JELLY) 0.025-0.01 % gel levothyroxine (SYNTHROID) 75 mcg tablet Review of Systems CONSTITUTIONAL: No fevers, chills night sweats, unintended weight loss CARDIOVASCULAR: No chest pain, dyspnea, palpitations, orthopnea, PND, ankle edema. PULM: No dyspnea, unexplained cough. GI: No dysphagia/odynophagia, problematic reflux, constipation, diarrhea, changes in stool habits, hematochezia, melena. : No new urinary complaints, including dysuria, gross hematuria or pyuria. NEURO: No new balance problems, peripheral weakness/paresthesias or numbness of concern. Physical Exam BP 120/70 (BP Site: Left Arm, BP Position: Sitting, BP Cuff Size: Regular Adult) Pulse 74 Temp 37.1 C (98.7 F) Resp 12 Ht 167.6 cm (5' 6 ) Wt 47.2 kg (104 lb) SpO2 96% BMI 16.79 kg/m General appearance: Well appearing, alert, in no acute distress, well nourished. Skin: Skin color, texture, turgor normal, no suspicious rashes or lesions Head: Normocephalic, no masses, lesions, tenderness or abnormalities Eyes: Anicteric sclera. Pupils are equally round and reactive to light. Extraocular movements are intact. Lungs: Lungs clear to auscultation. No wheezing, rhonchi, rales Heart: RRR without murmur, gallop, or rubs. Extremities: No deformities, edema, skin discoloration, clubbing or cyanosis. Good capillary refill. ASSESSMENT/PLAN: 1. Vitamin B12 deficiency - ICD9: 266.2, ICD10: E53.8 (primary diagnosis) - VITAMIN B12 BLOOD 2. Gout with manifestations - ICD9: 274.89, ICD10: M10.9 - ALLOPURINOL 100 MG TABLET - URIC ACID BLOOD 3. Vitamin D deficiency - ICD9: 268.9, ICD10: E55.9 - VITAMIN D 25 HYDROXY 4. Hypothyroidism, unspecified type - ICD9: 244.9, ICD10: E03.9 - TSH BLD 5. Essential hypertension, benign - ICD9: 401.1, ICD10: I10 - COMP METABOLIC PANEL - CBC + DIFF 6. Encounter for screening for diabetes mellitus - ICD9: V77.1, ICD10: Z13.1 7. Elevated glucose - ICD9: 790.29, ICD10: R73.09 - HGB A1C Ming Mcknight MD documented in this encounter [facility] 11-26-2021 History of Presen t illness Narrative Images from the original note were not included. This note was created using [employer]. Subjective Ainsley Sorenson is a 86 year old female. HPI Patient presents with her daughter with left hand redness x this am. Her daughter noticed this when she saw her this morning. She has a scratch on the hand. The patient isn't sure what it is from, but could be from her cat. No cat bite. She has had cellulitis previously, no known MRSA history. No fevers or chills. Mild pain in the hand. Review of Systems Musculoskeletal: Left hand redness All other systems reviewed and are negative. 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 30 tablet 5 allopurinol (ZYLOPRIM) 100 mg tablet Take 1 tablet by mouth once daily. For gout. 90 tablet 1 lisinopril (ZESTRIL, PRINIVIL) 10 mg tablet Take 1 tablet by mouth once daily. 90 tablet 3 rivastigmine tartrate (EXELON) 6 mg capsule Take 1 capsule by mouth twice daily with meals. 60 capsule 11 sertraline (ZOLOFT) 50 mg tablet Take 1 tablet by mouth once daily. 90 tablet 3 Oxyquinoline-Na Lauryl Sulfate (TRIMO-FRANCISCO JELLY) 0.025-0.01 % gel Use 1 application vaginally at bedtime as needed. 1 Tube 5 levothyroxine (SYNTHROID) 75 mcg tablet TAKE ONE TABLET BY MOUTH ONCE DAILY ON EMPTY STOMACH FOR THYRIOD 90 tablet 3 omeprazole (PRILOSEC) 20 mg capsule Take 1 capsule by mouth daily before breakfast. 1/2 hr before meal. 30 capsule 3 loperamide HCl (IMODIUM) 2 mg tab Take 2 each morning. May take another 2 later in the day, as needed. 96 tablet 3 magnesium oxide 200 mg magnesium tab Take 1 tablet by mouth once daily. 30 tablet 11 aspirin, enteric coated (ASPIRIN, ENTERIC COATED) 81 mg EC tablet Take 1 tablet by mouth once daily. 0 Wtzupkgeebssq-Dnpqcniu-Aixelz (CENTRUM SILVER) ORAL Tab Take one(1) tablet daily. 0 doxycycline (VIBRA-TABS) 100 mg tablet Take 1 tablet by mouth twice daily for 10 days. 20 tablet 0 No current facility-administered medications for this visit. PAST SURGICAL HISTORY Procedure Laterality Date COLONOSCOPY FLX DX W/COLLJ SPEC WHEN PFRMD 04/07/2012 Colonoscopy repeat 10 years DILATION & CURETTAGE DX&/THER NONOBSTETRIC Dilation & curettage LAPAROSCOPIC TUBAL LIGATION/RING/CLIP FAMILY HISTORY Problem Relation Age of Onset other (cerebral hemorrhage) Mother Diabetes Father Stroke Father Social History Tobacco Use Smoking status: Former Smokeless tobacco: Never Vaping Use Vaping Use: Never used Substance Use Topics Alcohol use: No Drug use: No Objective BP 180/90 Pulse 82 Temp 36.3 C (97.4 F) Resp 21 Wt 48.1 kg (106 lb) SpO2 98% BMI 17.11 kg/m Physical Exam Vitals reviewed. Constitutional: Appearance: Normal appearance. HENT: Head: Normocephalic and atraumatic. Musculoskeletal: Hands: Comments: Patient has a central scab on the dorsal hand with surrounding redness. No lymphangitic streaking. No sign of abscess. No FB palpated or visualized. Skin: General: Skin is warm and dry. Neurological: Mental Status: She is alert. Assessment and Plan ASSESSMENT/PLAN: 1. Skin infection - ICD9: 686.9, ICD10: L08.9 - Begin treatment with doxycycline - No lymphangetic streaking, this was defined for patient to watch for and to seek medical care immediately if appears - keep appt with pcp in 2 days for recheck - DOXYCYCLINE HYCLATE 100 MG TABLET Neela Oneill PA-C documented in this encounter [facility] 11-14-2021 Evaluation note Diagnosis Hypertensive kidney disease with stage 3a chronic kidney disease (HCC) documented in this encounter [facility]08-01-2022 Miscellaneous Notes* Telephone Encounter - Leah Salazar Ma - 10/20/2021 12:55 PM EDT Last OV: 06/06/21 Next OV: 11/28/2021 * Telephone Encounter - Zoran Steele Pss - 10/20/2021 11:23 AM EDT Patient has been identified by name and date of : Yes Pending Prescriptions Disp Refills POTASSIUM CHLORIDE ER 20 MEQ TABLET,EXTENDED RELEASE(PART/CRYST) 30 tablet 5 Sig: Take 1 tablet by mouth once daily. GREGG: No RX INSTRUCTIONS: Patient aware RX will be sent to pharmacy. No need to notify patient. Zoran Steele Pss [facility] History of Present illness Narrative* Mindy Mancia MD - 07/25/2021 3:33 PM EDT Ainsley Sorenson is a 85 year old who presents today for pessary insertion/cleaning. She wearsa size 2 ring with support pessary. She returns today with no complaints. She has not had problems with the pessary. She has not had vaginal discharge. She has not had vaginal bleeding. EXAM: pleasant, well developed, well nourished, in no apparent distress Pelvic: [place]'s, urethra and [place]'s glands were normal. The ring with support pessary was removed. Vaginal exam indicated no erythema, no ulcerations and no vaginal discharge. The pessary was cleaned a size 2 ring with support was inserted without difficulty a/p uterovaginal prolapse The pessary was inserted, patient tolerated the procedure well and the device is comfortable. f/u in 6 months or prn Mindy Mancia MD [facility] Miscellaneous Notes* Telephone Encounter - Rosario Hebert LPN - 07/05/2021 10:58 AM EDT Wednesday refill is fine. * Telephone Encounter - Rosario Hebert LPN - 07/05/2021 10:56 AM EDT Patient has been identified by name and date of : Yes [employer] phones for refill(s): Pending Prescriptions Disp Refills ALLOPURINOL 100 MG TABLET 90 tablet 3 Sig: Take 1 tablet by mouth once daily. For gout. GREGG: No Date of last office visit in primary care: 06/06/21 Please advise. Thank you. Rosario Hebert LPN documented [facility] History of Present illness Narrative* Melissa Zepeda, RT(R) - 05/16/2021 1:30 PM EST Radiology Service Progress Note PATIENT NAME: Ainsley Sorenson DATE OF SERVICE: May 16, 2021 TIME: 1:23 PM PATIENT IDENTITY VERIFICATION COMPLETED USING TWO (2) IDENTIFIERS: Name and Date of confirmedby patient verbally. FALL SCREENING: Has the patient had 2 falls in the last year or 1 fall with injury or currently using an Ambulatory Assistive Device (Walker, Cane, Wheelchair, Crutches, etc.)? No PATIENT GENDER DATA: Female. status: : No status: NO. PATIENT RELEVANT IMPLANT DATA REVIEWED: Not Applicable RADIOLOGY DEPARTMENT: General X-ray: Exam(s) Completed: Upper Extremity X- Ray(s): Forearm, right PERIPHERAL IV DATA: Not applicable SIGNED BY: RT Earnest(R) May 16, 2021 1:23 PM documented in this encounterC[facility] History of Past illness Narrative* Problem Noted Date Resolved Date Depression 03/19/2015 10/12/2019 Internal hemorrhoids without mention of complica tion 04/07/2012 03/01/2014 Uterine prolapse without mention of vaginal wall prolapse 07/31/2009 07/31/2009 Other symptoms involving cardiovascular system 12/25/2015 documented as of this encounter (statuses as of 07/07/2021) [facility] of Past illness Narrative* Problem Noted Date Resolved Date Depression 03/19/2015 10/12/2019 Internal hemorrhoids without mention of complica tion 04/07/2012 03/01/2014 Uterine prolapse without mention of vaginal wall prolapse 07/31/2009 07/31/2009 Other symptoms involving cardiovascular system 12/25/2015 documented as of this encounter (statuses as of 07/25/2021) [facility] of Past illness Narrative* Problem Noted Date Resolved Date Depression 03/19/2015 10/12/2019 Internal hemorrhoids without mention of complica tion 04/07/2012 03/01/2014 Uterine prolapse without mention of vaginal wall prolapse 07/31/2009 07/31/2009 Other symptoms involving cardiovascular system 12/25/2015 documented as of this encounter (statuses as of 10/20/2021) [facility] of Past illness Narrative* Problem Noted Date Resolved Date Depression 03/19/2015 10/12/2019 Internal hemorrhoids without mention of complica tion 04/07/2012 03/01/2014 Uterine prolapse without mention of vaginal wall prolapse 07/31/2009 07/31/2009 Other symptoms involving cardiovascular system 12/25/2015 documented as of this encounter (statuses as of 11/14/2021) [facility] illness Narrative* Problem Noted Date Resolved Date Depression 03/19/2015 10/12/2019 Internal hemorrhoids without mention of complica tion 04/07/2012 03/01/2014 Uterine prolapse without mention of vaginal wall prolapse 07/31/2009 07/31/2009 Other symptoms involving cardiovascular system 12/25/2015 documented as of this encounter (statuses as of 11/26/2021) [facility] Narrative* Problem Noted Date Resolved Date Depression 03/19/2015 10/12/2019 Internal hemorrhoids without mention of complica tion 04/07/2012 03/01/2014 Uterine prolapse without mention of vaginal wall prolapse 07/31/2009 07/31/2009 Other symptoms involving cardiovascular system 12/25/2015 documented as of this encounter (statuses as of 11/28/2021) [facility] Narrative* Problem Noted Date Resolved Date Depression 03/19/2015 10/12/2019 Internal hemorrhoids without mention of complica tion 04/07/2012 03/01/2014 Uterine prolapse without mention of vaginal wall prolapse 07/31/2009 07/31/2009 Other symptoms involving cardiovascular system 12/25/2015 documented as of this encounter (statuses as of 12/05/2021) [facility] Narrative* Problem Noted Date Resolved Date Depression 03/19/2015 10/12/2019 Internal hemorrhoids without mention of complica tion 04/07/2012 03/01/2014 Uterine prolapse without mention of vaginal wall prolapse 07/31/2009 07/31/2009 Other symptoms involving cardiovascular system 12/25/2015 documented as of this encounter (statuses as of 01/05/2022) [facility] Narrative* Problem Noted Date Resolved Date Depression 03/19/2015 10/12/2019 Internal hemorrhoids without mention of complica tion 04/07/2012 03/01/2014 Uterine prolapse without mention of vaginal wall prolapse 07/31/2009 07/31/2009 Other symptoms involving cardiovascular system 12/25/2015 documented as of this encounter (statuses as of 01/13/2022) [facility] Narrative* Problem Noted Date Resolved Date Depression 03/19/2015 10/12/2019 Internal hemorrhoids without mention of complica tion 04/07/2012 03/01/2014 Uterine prolapse without mention of vaginal wall prolapse 07/31/2009 07/31/2009 Other symptoms involving cardiovascular system 12/25/2015 documented as of this encounter (statuses as of 01/23/2022) [facility] Narrative* Problem Noted Date Resolved Date Depression 03/19/2015 10/12/2019 Internal hemorrhoids without mention of complica tion 04/07/2012 03/01/2014 Uterine prolapse without mention of vaginal wall prolapse 07/31/2009 07/31/2009 Other symptoms involving cardiovascular system 12/25/2015 documented as of this encounter (statuses as of 01/26/2022) [facility] Narrative* Problem Noted Date Resolved Date Depression 03/19/2015 10/12/2019 Internal hemorrhoids without mention of complica tion 04/07/2012 03/01/2014 Uterine prolapse without mention of vaginal wall prolapse 07/31/2009 07/31/2009 Other symptoms involving cardiovascular system 12/25/2015 documented as of this encounter (statuses as of 01/28/2022) [facility] Narrative* Problem Noted Date Resolved Date Depression 03/19/2015 10/12/2019 Internal hemorrhoids without mention of complica tion 04/07/2012 03/01/2014 Uterine prolapse without mention of vaginal wall prolapse 07/31/2009 07/31/2009 Other symptoms involving cardiovascular system 12/25/2015 documented as of this encounter (statuses as of 01/30/2022) [facility]ative* Problem Noted Date Resolved Date Depression 03/19/2015 10/12/2019 Internal hemorrhoids without mention of complica tion 04/07/2012 03/01/2014 Uterine prolapse without mention of vaginal wall prolapse 07/31/2009 07/31/2009 Other symptoms involving cardiovascular system 12/25/2015 documented as of this encounter (statuses as of 01/30/2022) [facility]ative* Problem Noted Date Resolved Date Depression 03/19/2015 10/12/2019 Internal hemorrhoids without mention of complica tion 04/07/2012 03/01/2014 Uterine prolapse without mention of vaginal wall prolapse 07/31/2009 07/31/2009 Other symptoms involving cardiovascular system 12/25/2015 documented as of this encounter (statuses as of 02/11/2022) [facility]ative* Problem Noted Date Resolved Date Depression 03/19/2015 10/12/2019 Internal hemorrhoids without mention of complica tion 04/07/2012 03/01/2014 Uterine prolapse without mention of vaginal wall prolapse 07/31/2009 07/31/2009 Other symptoms involving cardiovascular system 12/25/2015 documented as of this encounter (statuses as of 02/18/2022) [facility]arrative* Problem Noted Date Resolved Date Depression 03/19/2015 10/12/2019 Internal hemorrhoids without mention of complica tion 04/07/2012 03/01/2014 Uterine prolapse without mention of vaginal wall prolapse 07/31/2009 07/31/2009 Other symptoms involving cardiovascular system 12/25/2015 documented as of this encounter (statuses as of 05/05/2022) [facility]arrative* Problem Noted Date Resolved Date Depression 03/19/2015 10/12/2019 Internal hemorrhoids without mention of complica tion 04/07/2012 03/01/2014 Uterine prolapse without mention of vaginal wall prolapse 07/31/2009 07/31/2009 Other symptoms involving cardiovascular system 12/25/2015 documented as of this encounter (statuses as of 05/30/2022) [facility]ative* Problem Noted Date Resolved Date Depression 03/19/2015 10/12/2019 Internal hemorrhoids without mention of complica tion 04/07/2012 03/01/2014 Uterine prolapse without mention of vaginal wall prolapse 07/31/2009 07/31/2009 Other symptoms involving cardiovascular system 12/25/2015 documented as of this encounter (statuses as of 06/05/2022) [facility]arrative* Problem Noted Date Resolved Date Depression 03/19/2015 10/12/2019 Internal hemorrhoids without mention of complica tion 04/07/2012 03/01/2014 Uterine prolapse without mention of vaginal wall prolapse 07/31/2009 07/31/2009 Other symptoms involving cardiovascular system 12/25/2015 documented as of this encounter (statuses as of 08/21/2022) [facility]* Problem Noted Date Diagnosed Date Resolved Date Depression 03/19/2015 10/12/2019 Internal hemorrhoids without mention of complication 04/07/2012 03/01/2014 Uterine prolapse without men tion of vaginal wall prolapse 07/31/2009 07/31/2009 Other symptoms involving car diovascular system 12/25/2015 documented as of this encounter (statuses as of 11/13/2022) [facility]* Problem Noted Date Diagnosed Date Resolved Date Depression 03/19/2015 10/12/2019 Internal hemorrhoids without mention of complication 04/07/2012 03/01/2014 Uterine prolapse without men tion of vaginal wall prolapse 07/31/2009 07/31/2009 Other symptoms involving car diovascular system 12/25/2015 documented as of this encounter (statuses as of 11/14/2022) [facility]* Problem Noted Date Diagnosed Date Resolved Date Depression 03/19/2015 10/12/2019 Internal hemorrhoids without mention of complication 04/07/2012 03/01/2014 Uterine prolapse without men tion of vaginal wall prolapse 07/31/2009 07/31/2009 Other symptoms involving car diovascular system 12/25/2015 documented as of this encounter (statuses as of 11/18/2022) [facility]* Problem Noted Date Diagnosed Date Resolved Date Depression 03/19/2015 10/12/2019 Internal hemorrhoids without mention of complication 04/07/2012 03/01/2014 Uterine prolapse without men tion of vaginal wall prolapse 07/31/2009 07/31/2009 Other symptoms involving car diovascular system 12/25/2015 documented as of this encounter (statuses as of 01/05/2023) [facility]* Problem Noted Date Diagnosed Date Resolved Date Depression 03/19/2015 10/12/2019 Internal hemorrhoids without mention of complication 04/07/2012 03/01/2014 Uterine prolapse without men tion of vaginal wall prolapse 07/31/2009 07/31/2009 Other symptoms involving car diovascular system 12/25/2015 documented as of this encounter (statuses as of 01/07/2023) [facility]* Problem Noted Date Diagnosed Date Resolved Date Depression 03/19/2015 10/12/2019 Internal hemorrhoids without mention of complication 04/07/2012 03/01/2014 Uterine prolapse without men tion of vaginal wall prolapse 07/31/2009 07/31/2009 Other symptoms involving car diovascular system 12/25/2015 documented as of this encounter (statuses as of 01/26/2023) [facility]ative* Problem Noted Date Diagnosed Date Resolved Date Depression 03/19/2015 10/12/2019 Internal hemorrhoids without mention of complication 04/07/2012 03/01/2014 Uterine prolapse without men tion of vaginal wall prolapse 07/31/2009 07/31/2009 Other symptoms involving car diovascular system 12/25/2015 documented as of this encounter (statuses as of 02/04/2023) [facility]* Problem Noted Date Diagnosed Date Resolved Date Depression 03/19/2015 10/12/2019 Internal hemorrhoids without mention of complication 04/07/2012 03/01/2014 Uterine prolapse without men tion of vaginal wall prolapse 07/31/2009 07/31/2009 Other symptoms involving car diovascular system 12/25/2015 documented as of this encounter (statuses as of 02/05/2023) [facility]ative* Problem Noted Date Diagnosed Date Resolved Date Depression 03/19/2015 10/12/2019 Internal hemorrhoids without mention of complication 04/07/2012 03/01/2014 Uterine prolapse without men tion of vaginal wall prolapse 07/31/2009 07/31/2009 Other symptoms involving car diovascular system 12/25/2015 documented as of this encounter (statuses as of 02/26/2023) [facility]ative* Problem Noted Date Diagnosed Date Resolved Date Depression 03/19/2015 10/12/2019 Internal hemorrhoids without mention of complication 04/07/2012 03/01/2014 Uterine prolapse without men tion of vaginal wall prolapse 07/31/2009 07/31/2009 Other symptoms involving car diovascular system 12/25/2015 documented as of this encounter (statuses as of 04/27/2023) [facility]* Problem Noted Date Diagnosed Date Resolved Date Depression 03/19/2015 10/12/2019 Internal hemorrhoids without mention of complication 04/07/2012 03/01/2014 Uterine prolapse without men tion of vaginal wall prolapse 07/31/2009 07/31/2009 Other symptoms involving car diovascular system 12/25/2015 documented as of this encounter (statuses as of 04/29/2023) [facility]* Problem Noted Date Diagnosed Date Resolved Date Depression 03/19/2015 10/12/2019 Internal hemorrhoids without mention of complication 04/07/2012 03/01/2014 Uterine prolapse without men tion of vaginal wall prolapse 07/31/2009 07/31/2009 Other symptoms involving car diovascular system 12/25/2015 documented as of this encounter (statuses as of 06/09/2023) [facility] [place] [facility] Diagnosis Gout with manifestations Gout with other specified manifestations [facility] Diagnosis Uterovaginal prolapse, complete- Primary Encounter for pessary maintenance Fitting and adjustment of other device [facility] [place] [facility]* Diagnosis Hypokalemia Hypopotassemia [facility] [place] [facility] Diagnosis Skin infection- Primary Unspecified local infection of skin and subcutaneous tissue [facility] [place] [facility]* Diagnosis Vitamin B12 deficiency- Primary Other B-complex deficiencies Gout with manifestations Gout with other specified manifestations Vitamin D deficiency Unspecified vitamin D deficiency Hypothyroidism, unspecified type Essential hypertension, benign Encounter for screening for diabetes mellitus Screening for diabetes mellitus Elevated glucose Other abnormal glucose [facility] [place] [facility]* Diagnosis Anemia, unspecified type- Primary Prediabetes Other abnormal glucose Major depressive disorder with single episode, in full remission (HCC) Chronic anxiety Anxiety state, unspecified 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) [facility]* Diagnosis Anemia, unspecified type- Primary [facility]* Diagnosis Hypothyroidism, unspecified type- Primary Medication management Encounter for long-term (current) use of other medications [facility] [place] [facility]* Diagnosis Pessary maintenance- Primary Fitting and adjustment of other device Incomplete uterovaginal prolapse Uterovaginal prolapse, incomplete [facility] [place] [facility]* Diagnosis 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) documented in this encounter [facility] note* Diagnosis Anemia, unspecified type- Primary [facility] [place] [facility]* Diagnosis Hypothyroidism, unspecified type- Primary Hypokalemia Hypopotassemia Essential hypertension, benign Prediabetes Other abnormal glucose documented [facility] this [facility] [place] [facility]* Diagnosis Anemia, unspecified type- Primary Major depressive disorder with single episode, in full remission (HCC) Chronic anxiety Anxiety state, unspecified Hypothyroidism, unspecified type Essential hypertension, benign [facility] [place] [facility]* Diagnosis Essential hypertension, benign [facility] [place] [facility]* Diagnosis Essential hypertension, benign- Primary Major depressive disorder with single episode, in full remission (HCC) Chronic anxiety Anxiety state, unspecified Anemia, unspecified type Hypothyroidism, unspecified type [facility] [place] [facility]* Diagnosis Microcytic anemia- Primary Iron deficiency anemia, unspecified History of recent blood transfusion Acute confusion Delirium due to conditions classified elsewhere [facility] [place] [facility]* Diagnosis Iron deficiency anemia due to chronic blood loss- Primary Iron deficiency anemia secondary to blood loss (chronic) [facility] [place] [facility]* Diagnosis Urinary tract infection without hematuria, site unspecified- Primary [facility] [place] [facility]* Diagnosis Iron deficiency anemia, unspecified iron deficiency anemia type- Primary 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) Gout with manifestations Gout with other specified manifestations Need for influenza vaccination Need for prophylactic vaccination and inoculation against influenza [facility] [place] [facility]* Diagnosis Iron deficiency anemia, unspecified iron deficiency anemia type- [facility] [place] [facility] Diagnosis Iron deficiency anemia, unspecified iron deficiency anemia type [facility] [place] [facility] Diagnosis Iron deficiency anemia, unspecified iron deficiency anemia type- Primary [facility] [place] [facility]* Diagnosis Other iron deficiency anemia- Primary Iron deficiency anemia, unspecified iron deficiency anemia type [facility] [place] [facility]* Diagnosis 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)- Primary Memory change Memory loss Hypothyroidism, unspecified type Major depressive disorder with single episode, in full remission (HCC) Chronic anxiety Anxiety state, unspecified Stage 3a chronic kidney disease (HCC) Diarrhea, unspecified type [facility] [place] [facility]* Diagnosis Major depressive disorder with single episode, in full remission (HCC) Chronic anxiety Anxiety state, unspecified [facility] [place] [facility] Diagnosis Recent urinary tract infection- Primary Leukocytes in urine Other cells and casts in urine 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) Diarrhea, unspecified type [facility] [place] [facility] Diagnosis Recent urinary tract infection- Primary Recurrent UTI Urinary tract infection, site not specified [facility] [place] [facility]* Diagnosis Major depressive disorder with single episode, in full remission (HCC) Chronic anxiety Anxiety state, unspecified [facility] [place] [facility]* Diagnosis Unsteady gait- Primary Abnormality of gait Tremor of both hands 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) Hypothyroidism, unspecified type Hypertensive kidney disease with stage 3a chronic kidney disease (HCC) Stage 3a chronic kidney disease (HCC) documented [facility] [place] [facility]* Diagnosis Injury of right forearm, initial encounter documented in this encounter [facility] for referral (narrative)* Diagnostic Procedure Only (Urgent) - Closed Specialty Diagnoses / Procedures Referred By Contac t Referred To Contact XR IMAGING Diagnoses Injury of right forearm, initial encounter Procedures XR FOREARM GENERAL 2V AP/LAT RIGHT RADEX FOREARM 2 VIEWS Marianna Valerio APRN.CNP [address] [place] [address] Xr Imaging [place] [address] Referral ID Status Reason Start Date Expiration Date V isits Requested Visits Authorized [id number] Closed Auto-Generate d Referral 05/16/2021 06/15/2022 1 1 [facility] for visit Narrative* Diagnostic Procedure Only (Urgent) - Closed Specialty Diagnoses / Procedures Referred By Contac t Referred To Contact XR IMAGING Diagnoses Injury of right forearm, initial encounter Procedures XR FOREARM GENERAL 2V AP/LAT RIGHT RADEX FOREARM 2 VIEWS Marianna Valerio APRN.CNP [address] [place] [address] [facility] [address] Referral ID Status Reason Start Date Expiration Date V isits Requested Visits Authorized [id number] Closed Auto-Generate d Referral 05/16/2021 06/15/2022 1 1 [facility] Advance Directives Documents on File Type Date Recorded Patient Social Services Counselor Expl anation Advance Directive(s) 07/31/2021 9:05 AM Documents on File Type Date Recorded Patient Social Services Counselor Expl anation Advance Directive(s) 07/31/2021 9:05 AM Reason for Referral Specialty Diagnoses / Procedures Referred By Contac t Referred To Contact Gastroenterology Diagnoses Microcytic anemia History of recent blood transfusion Procedures CONSULT TO GASTROENTEROLOGY OFFICE/OUTPATIENT [facility] 60-74 MINUTES Zoran Dumont PA-C [address] [place] [address] Referral ID Status Reason Start Date Expiration Date Visits Requested Visits Authorized [id number] Authorized PCP Requested Referral 11/13/2022 11/13/2023 1 1 Specialty Diagnoses / Procedures Referred By Contac t Referred To Contact Hematology Diagnoses Iron deficiency anemia, unspecified iron deficiency anemia type Procedures CONSULT TO HEMATOLOGY OFFICE/OUTPATIENT [facility] 60-74 MINUTES Zoran Dumont PA-C [address] [place] [address] Referral ID Status Reason Start Date Expiration Date Visits Requested Visits Authorized [id number] Authorized PCP Requested Referral 3 01/04/2024 1 1 Specialty Diagnoses / Procedures Referred By Contac t Referred To Contact Gerontology Diagnoses 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) Unsteady gait Procedures CONSULT TO GERIATRICS OFFICE/OUTPATIENT [facility] 60 MINUTES Shonda Tyler APRN.CLINICAL AUDIOLOGIST [address] [place] [address] Referral ID Status Reason Start Date Expiration Date Visits Requested Visits Authorized [id number] Authorized PCP Requested Referral 12/10/2023 12/09/2024 1 1 Medications Administered Section Inactive Administered Medications - up to 3 most recent administrations Medication Order MAR Action Action Date Dose Rate Site iron sucrose iv piggyback 200 mg in NaCl 0.9% 100 mL (VENOFER) 200 mg, INTRAVENOUS, at 400 mL/hr, Administer over 15 Minutes, ONCE, 1 dose, On Wed01/25/23 at 1400, Please conduct a 30 minute post dose observation. Refrigerate New Bag/Syringe/Bottle 01/25/2023 1:37 PM EST 200 mg 400 mL/hr Inactive Administered Medications - up to 3 most recent administrations Medication Order MAR Action Action Date Dose Rate Site iron sucrose iv piggyback 200 mg in NaCl 0.9% 100 mL (VENOFER) 200 mg, INTRAVENOUS, at 400 mL/hr, Administer over 15 Minutes, ONCE, 1 dose, On Wed02/05/23 at 1330, Please conduct a 30 minute post dose observation. Refrigerate New Bag/Syringe/Bottle 02/05/2023 1:48 PM EST 200 mg 400 mL/hr Inactive Administered Medications - up to 3 most recent administrations Medication Order MAR Action Action Date Dose Rate Site iron sucrose iv piggyback 200 mg in NaCl 0.9% 100 mL (VENOFER) 200 mg, INTRAVENOUS, at 400 mL/hr, Administer over 15 Minutes, ONCE, 1 dose, On Wed02/26/23 at 1330, Please conduct a 30 minute post dose observation. Refrigerate New Bag/Syringe/Bottle 02/26/2023 1:35 PM EST 200 mg 400 mL/hr Summary Purpose Family History No Family History Records Found Additional Source Comments Source Comments (unrecognize d section and content) In the event this informatio n is protected by the Federal Confidentiality of Alcohol and Drug Abuse Patient Records regulations: The Federal rules restrict any use of the information to criminally investigate or prosecute any alcohol or drug abuse patient.[facility] the event this information is protected by the Federal Confidentiality of Alcohol and Drug Abuse Patient Records regulations: The Federal rules restrict any use of the information to criminally investigate or prosecute any alcohol or drug abuse patient.[facility] Hospital[facility] the event this information is protected by the Federal Confidentiality of Alcohol and Drug Abuse Patient Records regulations: The Federal rules restrict any use of the information to criminally investigate or prosecute any alcohol or drug abuse patient.[facility] the event this information is protected by the Federal Confidentiality of Alcohol and Drug Abuse Patient Records regulations: The Federal rules restrict any use of the information to criminally investigate or prosecute any alcohol or drug abuse patient.[facility] Hospital[facility] the event this information is protected by the Federal Confidentiality of Alcohol and Drug Abuse Patient Records regulations: The Federal rules restrict any use of the information to criminally investigate or prosecute any alcohol or drug abuse patient.[facility] HospitalIn the event this information is protected by the Federal Confidentiality of Alcohol and Drug Abuse Patient Records regulations: The Federal rules restrict any use of the information to criminally investigate or prosecute any alcohol or drug abuse patient.[facility] HospitalIn the event this information is protected by the Federal Confidentiality of Alcohol and Drug Abuse Patient Records regulations: The Federal rules restrict any use of the information to criminally investigate or prosecute any alcohol or drug abuse patient.[facility] Hospital[facility] the event this information is protected by the Federal Confidentiality of Alcohol and Drug Abuse Patient Records regulations: The Federal rules restrict any use of the information to criminally investigate or prosecute any alcohol or drug abuse patient.[facility] HospitalIn the event this information is protected by the Federal Confidentiality of Alcohol and Drug Abuse Patient Records regulations: The Federal rules restrict any use of the information to criminally investigate or prosecute any alcohol or drug abuse patient.[facility] HospitalIn the event this information is protected by the Federal Confidentiality of Alcohol and Drug Abuse Patient Records regulations: The Federal rules restrict any use of the information to criminally investigate or prosecute any alcohol or drug abuse patient.[facility] HospitalIn the event this information is protected by the Federal Confidentiality of Alcohol and Drug Abuse Patient Records regulations: The Federal rules restrict any use of the information to criminally investigate or prosecute any alcohol or drug abuse patient.[facility] HospitalIn the event this information is protected by the Federal Confidentiality of Alcohol and Drug Abuse Patient Records regulations: The Federal rules restrict any use of the information to criminally investigate or prosecute any alcohol or drug abuse patient.[facility] HospitalIn the event this information is protected by the Federal Confidentiality of Alcohol and Drug Abuse Patient Records regulations: The Federal rules restrict any use of the information to criminally investigate or prosecute any alcohol or drug abuse patient.[facility] HospitalIn the event this information is protected by the Federal Confidentiality of Alcohol and Drug Abuse Patient Records regulations: The Federal rules restrict any use of the information to criminally investigate or prosecute any alcohol or drug abuse patient.[facility] HospitalIn the event this information is protected by the Federal Confidentiality of Alcohol and Drug Abuse Patient Records regulations: The Federal rules restrict any use of the information to criminally investigate or prosecute any alcohol or drug abuse patient.[facility] HospitalIn the event this information is protected by the Federal Confidentiality of Alcohol and Drug Abuse Patient Records regulations: The Federal rules restrict any use of the information to criminally investigate or prosecute any alcohol or drug abuse patient.[facility] HospitalIn the event this information is protected by the Federal Confidentiality of Alcohol and Drug Abuse Patient Records regulations: The Federal rules restrict any use of the information to criminally investigate or prosecute any alcohol or drug abuse patient.[facility] HospitalIn the event this information is protected by the Federal Confidentiality of Alcohol and Drug Abuse Patient Records regulations: The Federal rules restrict any use of the information to criminally investigate or prosecute any alcohol or drug abuse patient.[facility] HospitalIn the event this information is protected by the Federal Confidentiality of Alcohol and Drug Abuse Patient Records regulations: The Federal rules restrict any use of the information to criminally investigate or prosecute any alcohol or drug abuse patient.[facility] HospitalIn the event this information is protected by the Federal Confidentiality of Alcohol and Drug Abuse Patient Records regulations: The Federal rules restrict any use of the information to criminally investigate or prosecute any alcohol or drug abuse patient.[facility] HospitalIn the event this information is protected by the Federal Confidentiality of Alcohol and Drug Abuse Patient Records regulations: The Federal rules restrict any use of the information to criminally investigate or prosecute any alcohol or drug abuse patient.[facility] HospitalIn the event this information is protected by the Federal Confidentiality of Alcohol and Drug Abuse Patient Records regulations: The Federal rules restrict any use of the information to criminally investigate or prosecute any alcohol or drug abuse patient.[facility] HospitalIn the event this information is protected by the Federal Confidentiality of Alcohol and Drug Abuse Patient Records regulations: The Federal rules restrict any use of the information to criminally investigate or prosecute any alcohol or drug abuse patient.[facility] HospitalIn the event this information is protected by the Federal Confidentiality of Alcohol and Drug Abuse Patient Records regulations: The Federal rules restrict any use of the information to criminally investigate or prosecute any alcohol or drug abuse patient.[facility] HospitalIn the event this information is protected by the Federal Confidentiality of Alcohol and Drug Abuse Patient Records regulations: The Federal rules restrict any use of the information to criminally investigate or prosecute any alcohol or drug abuse patient.[facility] HospitalIn the event this information is protected by the Federal Confidentiality of Alcohol and Drug Abuse Patient Records regulations: The Federal rules restrict any use of the information to criminally investigate or prosecute any alcohol or drug abuse patient.[facility] HospitalIn the event this information is protected by the Federal Confidentiality of Alcohol and Drug Abuse Patient Records regulations: The Federal rules restrict any use of the information to criminally investigate or prosecute any alcohol or drug abuse patient.[facility] HospitalIn the event this information is protected by the Federal Confidentiality of Alcohol and Drug Abuse Patient Records regulations: The Federal rules restrict any use of the information to criminally investigate or prosecute any alcohol or drug abuse patient.[facility] HospitalIn the event this information is protected by the Federal Confidentiality of Alcohol and Drug Abuse Patient Records regulations: The Federal rules restrict any use of the information to criminally investigate or prosecute any alcohol or drug abuse patient.[facility] HospitalIn the event this information is protected by the Federal Confidentiality of Alcohol and Drug Abuse Patient Records regulations: The Federal rules restrict any use of the information to criminally investigate or prosecute any alcohol or drug abuse patient.[facility] HospitalIn the event this information is protected by the Federal Confidentiality of Alcohol and Drug Abuse Patient Records regulations: The Federal rules restrict any use of the information to criminally investigate or prosecute any alcohol or drug abuse patient.[facility] HospitalIn the event this information is protected by the Federal Confidentiality of Alcohol and Drug Abuse Patient Records regulations: The Federal rules restrict any use of the information to criminally investigate or prosecute any alcohol or drug abuse patient.[facility] HospitalIn the event this information is protected by the Federal Confidentiality of Alcohol and Drug Abuse Patient Records regulations: The Federal rules restrict any use of the information to criminally investigate or prosecute any alcohol or drug abuse patient.[facility] HospitalIn the event this information is protected by the Federal Confidentiality of Alcohol and Drug Abuse Patient Records regulations: The Federal rules restrict any use of the information to criminally investigate or prosecute any alcohol or drug abuse patient.[facility] HospitalIn the event this information is protected by the Federal Confidentiality of Alcohol and Drug Abuse Patient Records regulations: The Federal rules restrict any use of the information to criminally investigate or prosecute any alcohol or drug abuse patient.[facility] HospitalIn the event this information is protected by the Federal Confidentiality of Alcohol and Drug Abuse Patient Records regulations: The Federal rules restrict any use of the information to criminally investigate or prosecute any alcohol or drug abuse patient.[facility] HospitalIn the event this information is protected by the Federal Confidentiality of Alcohol and Drug Abuse Patient Records regulations: The Federal rules restrict any use of the information to criminally investigate or prosecute any alcohol or drug abuse patient.[facility] HospitalIn the event this information is protected by the Federal Confidentiality of Alcohol and Drug Abuse Patient Records regulations: The Federal rules restrict any use of the information to criminally investigate or prosecute any alcohol or drug abuse patient.[facility] HospitalIn the event this information is protected by the Federal Confidentiality of Alcohol and Drug Abuse Patient Records regulations: The Federal rules restrict any use of the information to criminally investigate or prosecute any alcohol or drug abuse patient.[facility] HospitalIn the event this information is protected by the Federal Confidentiality of Alcohol and Drug Abuse Patient Records regulations: The Federal rules restrict any use of the information to criminally investigate or prosecute any alcohol or drug abuse patient.[facility] HospitalIn the event this information is protected by the Federal Confidentiality of Alcohol and Drug Abuse Patient Records regulations: The Federal rules restrict any use of the information to criminally investigate or prosecute any alcohol or drug abuse patient.[facility] HospitalIn the event this information is protected by the Federal Confidentiality of Alcohol and Drug Abuse Patient Records regulations: The Federal rules restrict any use of the information to criminally investigate or prosecute any alcohol or drug abuse patient.[facility] HospitalIn the event this information is protected by the Federal Confidentiality of Alcohol and Drug Abuse Patient Records regulations: The Federal rules restrict any use of the information to criminally investigate or prosecute any alcohol or drug abuse patient.[facility] HospitalIn the event this information is protected by the Federal Confidentiality of Alcohol and Drug Abuse Patient Records regulations: The Federal rules restrict any use of the information to criminally investigate or prosecute any alcohol or drug abuse patient.[facility] Reason for Visit (unrecogniz ed section and content) Reason Onset Date Comments Refill Request 07/05/2021 Reason Comments Pessary Reason Onset Date Comments Refill Request 10/20/2021 Reason Comments Trauma Left hand is red and swollen, woke up like this Reason Comments F/U 6 months Reason Comments Results Reason Comments Patient Update Reason Onset Date Comments Refill Request 01/12/2022 Reason Comments Recheck Follow up, review la bs Reason Comments Pessary Check Reason Comments Refill Request Reason Comments stool results Reason Onset Date Comments Refill Request 06/05/2022 Reason Comments Recheck Follow up, review la bs and BP Reason Comments Follow Up HTN and blood work, had blood transfusion was on Wednesday due to low hemoglobin Reason Comments Results Critical Hgb. Reason Onset Date Comments Follow Up labs,urine,confu yuliet Immunizations 01/04/2023 Flu vaccination Reason Comments Orders Reason Comments Non-Chemotherapy Treatment Specialty Diagnoses / Procedures Referred By Contac t Referred To Contact Diagnoses Iron deficiency anemia, unspecified [place] [address] [place] [address] Mauricio [facility] [address] [place] [address] Referral ID Status Reason Start Date Expiration Date V isits Requested Visits Authorized [id number] Authorized 01/25/2023 04/25/2023 99 99 Reason Comments New Patient Evaluation Specialty Diagnoses / Procedures Referred By Contac t Referred To Contact Hematology Diagnoses Iron deficiency anemia, unspecified iron deficiency anemia type Procedures CONSULT TO HEMATOLOGY OFFICE/OUTPATIENT NEW HIGH MDM 60-74 MINUTES Zorna Dumont PA-C [address] [place] [address] Referral ID Status Reason Start Date Expiration Date V isits Requested Visits Authorized [id number] Closed PCP Requested Referral 01/04/2023 01/04/2024 1 1 Reason Comments 1st Time Treatment (Non-Oncology) Reason Comments Recheck Follow up anemia Reason Comments Recheck 6 week follow up Reason Onset Date Comments Refill Request 08/13/2023 Reason Onset Date Comments Refill Request 10/04/2023 Reason Comments Recheck Not as steady on fee t, walking is more difficult Care Teams (unrecognized sec tion and content) [employer]ision Agriculture Technician Relationship Specialty Start Date End Date Ming Mcknight MD [address] [place] [address] PCP - General Internal Medicine 12/27/20 [employer]ision Agriculture Technician Relationship Specialty Start Date End Date Ming Mcknight MD [address] [place] [address] PCP - General Internal Medicine 12/27/20 Precision Agriculture Technician Relationship Specialty Start Date End Date Ming Mcknight MD [address] [place] [address] PCP - General Internal Medicine 12/27/20 Precision Agriculture Technician Relationship Specialty Start Date End Date Ming Mcknight MD [address] [place] [address] PCP - General Internal Medicine 12/27/20 Precision Agriculture Technician Relationship Specialty Start Date End Date Ming Mcknight MD [address] [place] [address] PCP - General Internal Medicine 12/27/20 Precision Agriculture Technician Relationship Specialty Start Date End Date Ming Mcknight MD [address] [place] [address] PCP - General Internal Medicine 12/27/20 Precision Agriculture Technician Relationship Specialty Start Date End Date Ming Mcknight MD [address] [place] [address] PCP - General Internal Medicine 12/27/20 Precision Agriculture Technician Relationship Specialty Start Date End Date Ming Mcknight MD [address] [place] [address] PCP - General Internal Medicine 12/27/20 Precision Agriculture Technician Relationship Specialty Start Date End Date Ming Mcknight MD [address] [facility] [place] [address] PCP - General Internal Medicine 12/27/20 Precision Agriculture Technician Relationship Specialty Start Date End Date Ming Mcknight MD [address] [place] [address] PCP - General Internal Medicine 12/27/20 Precision Agriculture Technician Relationship Specialty Start Date End Date Ming Mcknight MD [address] [place] [address] PCP - General Internal Medicine 12/27/20 [employer] Relationship Specialty Start Date End Date Ming Mcknight MD [address] [place] [address] PCP - General Internal Medicine 12/27/20 [employer] Relationship Specialty Start Date End Date Ming Mcknight MD [address] [place] [address] PCP - General Internal Medicine 12/27/20 [employer] Technician Relationship Specialty Start Date End Date Ming Mcknight MD [address] [place] [address] PCP - General Internal Medicine 12/27/20 [employer] Technician Relationship Specialty Start Date End Date Ming Mcknight MD [address] [place] [address] PCP - General Internal Medicine 12/27/20 [employer] Technician Relationship Specialty Start Date End Date Ming Mcknight MD [address] [place] [address] PCP - General Internal Medicine 12/27/20 [employer] Technician Relationship Specialty Start Date End Date Ming Mcknight MD [address] [place] [address] PCP - General Internal Medicine 12/27/20 [employer] Technician Relationship Specialty Start Date End Date Ming Mcknight MD [address] [place] [address] PCP - General Internal Medicine 12/27/20 [employer] Technician Relationship Specialty Start Date End Date Ming Mcknight MD [address] [place] [address] PCP - General Internal Medicine 12/27/20 [employer] Technician Relationship Specialty Start Date End Date Ming Mcknight MD [address] [place] [address] PCP - General Internal Medicine 12/27/20 [employer] Technician Relationship Specialty Start Date End Date Ming Mcknight MD [address] [place] [address] PCP - General Internal Medicine 12/27/20 [employer] Technician Relationship Specialty Start Date End Date Ming Mcknight MD [address] [place] [address] PCP - General Internal Medicine 12/27/20 [employer]ician Relationship Specialty Start Date End Date Ming Mcknight MD [address] [place] [address] PCP - General Internal Medicine 12/27/20 Stu Schaeffer MD [address] [place] [address] Hematology/Oncology 02/24/23 [employer] Technician Relationship Specialty Start Date End Date Ming Mcknight MD [address] [place] [address] PCP - General Internal Medicine 12/27/20 Stu Schaeffer MD [address] [place] [address] Hematology/Oncology 02/24/23 [employer] Technician Relationship Specialty Start Date End Date Mnig Mcknight MD [address] [place] [address] PCP - General Internal Medicine 12/27/20 Stu Schaeffer MD [address] [place] [address] Hematology/Oncology 02/24/23 [employer] Technician Relationship Specialty Start Date End Date Ming Mcknight MD [address] [place] [address] PCP - General Internal Medicine 12/27/20 Stu Schaeffer MD [address] [place] [address] Hematology/Oncology 02/24/23 [employer] Technician Relationship Specialty Start Date End Date Ming Mcknight MD [address] [place] [address] PCP - General Internal Medicine 12/27/20 Stu Schaeffer MD [address] [place] [address] Hematology/Oncology 02/24/23 [employer] Technician Relationship Specialty Start Date End Date Ming Mcknight MD [address] [facility] [place] [address] PCP - General Internal Medicine 12/27/20 Stu Schaeffer MD [address] [place] [address] Hematology/Oncology 02/24/23 [employer] Technician Relationship Specialty Start Date End Date Ming Mcknight MD [address] [place] [address] PCP - General Internal Medicine 12/27/20 Stu Schaeffer MD [address] [place] [address] Hematology/Oncology 02/24/23 [employer] Technician Relationship Specialty Start Date End Date Ming Mcknight MD [address] [place] [address] PCP - General Internal Medicine 12/27/20 Stu Schaeffer MD [address] [place] [address] Hematology/Oncology 02/24/23 [employer] Technician Relationship Specialty Start Date End Date Ming Mcknight MD [address] [place] [address] PCP - General Internal Medicine 12/27/20 [employer] Relationship Specialty Start Date End Date Ming Mcknight MD [address] [place] [address] PCP - General Internal Medicine 12/27/20 Stu Schaeffer MD [address] [place] [address] Hematology/Oncology 02/24/23 INFORMATION SOURCE (unrecogn ized section and content) DATE CREATED AUTHOR 12/26/2023 [facility] FOR RECORDS PERTAINING TO PATIENTS WHO ARE OR HAVE BEEN ENROLLED IN A CHEMICAL DEPENDENCY/SUBSTANCEABUSE PROGRAM, SOME INFORMATION MAY BE OMITTED. This clinical summary was aggregated from multiple sources. Caution should be exercised in using it in the provision of clinical care. This summary normalizes information from multiple sources, and as a consequence, information in this document may materially change the coding, format and clinical context of patient data. In addition, data may be omitted in some cases. CLINICAL DECISIONS SHOULD BE BASED ON THE PRIMARY CLINICAL RECORDS. [employer] provides no warranty or guarantee of the accuracy or completeness of information in this document.
--- NOTE | 2024-01-14 18:16 | PCM.HP.STD ---
HPI - General General Date of Admission: 01/14/24 Date of Service: 01/14/24 Chief Complaint: staring spell, abn speech HPI Narrative NITHIN KRISHNAN, is a 88-year-old female history of hypothyroidism, hypertension, Alzheimer's, depression who presented [facility] ED 01/14/2024 due to altered mental status and difficulty speaking. According to family at 2:30 PM she was sitting in recliner and slumped over and they noted that her speech was very abnormal for her. Also stared off into space for period of time but did not experience any full body shaking and they were able to walk her to the car with a significant mount of assistance. Patient was a stroke alert in the ED, NIH was 2 and symptoms were improving so telehealth neurologist did not believe she is a candidate for TNK and recommended hospital admission for CVA versus complex seizure given negative imaging. Hospitalist contacted for admission. Patient evaluated with family member at bedside, history as above, patient and would provide any additional history. Daughter at bedside said she did also have some decreased vision during the event and now presently is back to normal. Possibly has had a little bit of cough over the past couple of days but no other new/acute/focal complaints. [facility] Medical History Gout Hypothyroid Hypertension Alzheimer disease Home Medications ?Medication ?Instructions ?Recorded ?Last Taken ?Type lisinopril 10 mg tablet 10 mg PO DAILY blood pressure 01/08/13 12/08/19 History levothyroxine 75 mcg tablet 75 mcg PO DAILY thyroid 12/08/19 12/08/19 History sertraline 50 mg tablet 50 mg PO DAILY mental health 12/08/19 12/08/19 History levothyroxine 50 mcg tablet 50 mcg PO DAILY disorder of 01/14/24 Unknown History thyroid gland rivastigmine tartrate 3 mg capsule 3 mg PO BID 01/14/24 Unknown History Allergy/AdvReac Type Severity Reaction Status Date / Time ciprofloxacin (From Cipro) Allergy Hives Verified 01/14/24 15:00 ciprofloxacin HCl (From Allergy Hives Verified 01/14/24 15:00 Cipro) amoxicillin trihydrate (From AdvReac Abd Verified 01/14/24 15:00 Augmentin) cramps/diarrhea potassium clavulanate (From AdvReac Abd Verified 01/14/24 15:00 Augmentin) cramps/diarrhea Social History Smoking Status: Former smoker ROS ROS Narrative General: Denies fever/chills HENT: Denies headache, denies stuffy nose, denies sore throat EYES: Had some decreased vision Resp: Has had slight cough, denies shortness of breath Cardiac: Denies chest pain GI: Denies abdominal pain, denies changes in bowel, denies nausea/vomiting : Denies changes in urination Extremity: Denies swelling MSK: Some generalized weakness earlier Neuro: Denies any numbness/tingling Heme: Denies any bleeding or bruising Skin: Denies rashes Psychiatric: No complaints voiced Vital Signs Vital Signs Vital Signs: 01/14/24 15:01 01/14/24 15:01 01/14/24 15:10 Temperature Temperature Source Pulse Rate 68 68 Respiratory Rate 23 H 23 H Blood Pressure 195/99 H 195/99 H Blood Pressure Mean 131 131 Pulse Ox 95 95 95 Oxygen Delivery Method Room Air Room Air Room Air 01/14/24 15:10 01/14/24 15:18 01/14/24 15:24 Temperature 98 F Temperature Source Temporal Pulse Rate 74 62 Respiratory Rate 27 H 21 H Blood Pressure 185/115 H 135/83 H Blood Pressure Mean 138 100 Pulse Ox 97 97 Oxygen Delivery Method 01/14/24 15:30 01/14/24 16:00 01/14/24 16:05 Temperature Temperature Source Pulse Rate 62 60 60 Respiratory Rate 20 H 13 15 Blood Pressure 140/71 H 144/79 H 144/79 H Blood Pressure Mean 94 100 100 Pulse Ox 97 100 99 Oxygen Delivery Method Room Air Room Air Room Air 01/14/24 16:14 01/14/24 16:15 01/14/24 16:30 Temperature Temperature Source Pulse Rate 60 60 61 Respiratory Rate 17 17 13 Blood Pressure 149/83 H 160/79 H Blood Pressure Mean 100 106 Pulse Ox 99 98 98 Oxygen Delivery Method Room Air 01/14/24 16:30 01/14/24 16:45 01/14/24 16:46 Temperature Temperature Source Pulse Rate 60 62 62 Respiratory Rate 21 H 25 H 16 Blood Pressure 160/79 H 168/70 H Blood Pressure Mean 98 95 Pulse Ox 98 99 100 Oxygen Delivery Method 01/14/24 16:47 01/14/24 17:00 01/14/24 17:00 Temperature 98.1 F Temperature Source Pulse Rate 62 60 62 Respiratory Rate 20 H 17 20 H Blood Pressure 168/70 H 148/85 H 148/85 H Blood Pressure Mean 102 106 104 Pulse Ox 100 98 99 Oxygen Delivery Method 01/14/24 17:15 01/14/24 17:30 01/14/24 17:45 Temperature Temperature Source Pulse Rate 60 61 66 Respiratory Rate 17 22 H 18 Blood Pressure Blood Pressure Mean Pulse Ox 99 99 Oxygen Delivery Method 01/14/24 18:00 Temperature Temperature Source Pulse Rate 66 Respiratory Rate 19 H Blood Pressure 130/119 H Blood Pressure Mean 125 Pulse Ox Oxygen Delivery Method Weight Weight: 49 kg Body Mass Index (BMI) 16.9 Physical Exam Narrative General: Alert, no apparent distress, not oriented which is baseline HEENT: Atraumatic, normocephalic Eyes: Anicteric, normal conjunctiva, extraocular movements intact, pupils equal Neck: Supple Respiratory: Clear to auscultation bilaterally, normal respiratory effort Cardiovascular: Regular rate and rhythm GI: Soft, nontender, nondistended Extremities: No edema Musculoskeletal: Strength 5 - out of 5 in right upper extremity, 5 - out of 5 left upper extremity, 5 - out of 5 right lower extremity, 5 - out of 5 left lower extremity Neuro: No overt focal neurological deficits, cranial nerves II through XII intact, difficulty with [id number] bilaterally but seemed more due to a comprehension problem then inability to do so Skin: No rashes appreciated Psych: Cooperative Results Lab / Micro Data 01/14/24 14:30 01/14/24 14:30 Labs: Laboratory Results - last 24 hr 01/14/24 14:30: WBC 9.1, RBC 4.02 L, Hgb 8.3 L, Hct 29.4 L, MCV 73.1 L, MCH 20.6 L, MCHC 28.2 L, RDW Std Deviation 60.0 H, RDW Coeff of Sol 22.9 H, Plt Count 133 L, MPV TNP, Immature Gran % (Auto) 0.400, Neut % (Auto) 81.9 H, Lymph % (Auto) 9.2 L, Coffee % (Auto) 7.3, Eos % (Auto) 0.9, Baso % (Auto) 0.3, Absolute Neuts (auto) 7.5, Absolute Lymphs (auto) 0.84, Nucleated RBC % 0, Platelet Estimate SLT DEC, Hypochromasia 1+, Anisocytosis 2+, Tear Drop Cells RARE, PT 13.9, INR 1.1, APTT 21.7 L, Sodium 141, Potassium 3.8, Chloride 112 H, Carbon Dioxide 24.0, Anion Gap 5, BUN 18, Creatinine 1.24 H, Estim Creat Clear Calc 24.73, Est GFR (MDRD) Af Amer 53 L, Est GFR (MDRD) Non-Af 44 L, BUN/Creatinine Ratio 14.5, Glucose 106, Calcium 8.5, Troponin I High Sens 12 01/14/24 15:03: POC Glucose 105 Imaging Radiology Impression Brain CT 01/14/24 15:05 IMPRESSION: Normal unenhanced CT scan of the brain. N.B. : The above Results were Read Back by Herbie Tolbert MD to Maikol Palmer and understanding confirmed on 01/14/2024 15:21:11 (ET). Electronically Signed: Herbie Tolbert MD at 15:22 EDT , ADDENDUM: 01/14/24 1529 IMPRESSION: Normal unenhanced CT scan of the brain. N.B. : The above Results were Read Back by Herbie Tolbert MD to Maikol Palmer and understanding confirmed on 01/14/2024 15:21:11 (ET). Electronically Signed: Herbie Tolbert MD at 15:22 EDT , Head/Neck CTA 01/14/24 15:05 IMPRESSION: 1. Mild atherosclerotic calcifications of the cavernous internal carotid arteries with mild narrowing of the right side. 2. No evidence of significant intracranial great vessel stenosis. 3. Mild atherosclerotic calcifications of the common and internal carotid arteries without significant stenosis. 4. Patent bilateral vertebral arteries with dominant right side. N.B. : The above Results were Read Back by Devaughn Ames MD to Maikol Palmer MD, and understanding confirmed on 01/14/2024 15:36:44 (ET). Electronically Signed: Devaughn Ames MD at 15:38 EDT , ADDENDUM: 01/14/24 1545 IMPRESSION: 1. Mild atherosclerotic calcifications of the cavernous internal carotid arteries with mild narrowing of the right side. 2. No evidence of significant intracranial great vessel stenosis. 3. Mild atherosclerotic calcifications of the common and internal carotid arteries without significant stenosis. 4. Patent bilateral vertebral arteries with dominant right side. N.B. : The above Results were Read Back by Devaughn Ames MD to Maikol Palmer MD, and understanding confirmed on 01/14/2024 15:36:44 (ET). Electronically Signed: Devaughn Ames MD at 15:38 EDT , Chest X-Ray 01/14/24 15:35 IMPRESSION: No radiographic evidence of acute cardiopulmonary disease. Electronically Signed: Devaughn Ames MD at 15:47 EDT , Assessment & Plan Assessment/Plan (1) Neurologic abnormality: PLAN: Plan #Change in mental status/staring spell and abnormal speech - last known normal 2:30PM -patient was stroke call in the ED- patient's NIH was 2 and symptoms were improving so telehealth neurologist did not believe she was a candidate for TNK and recommended hospital admission for CVA versus complex seizure. -Admit to tele -CT head w/ No acute changes -CTA head and neck with mild disease without LVO -MRI ordered -EEG ordered- tele neuro recommended on holding off on anti seizure medication at this time -NIH q4hr - patient given a full dose aspirin, will order daily asa, statin -Echo w/ bubble study -PT/OT/Speech eval -Teleneuro consult ordered -Hold BP medications to allow for permissive hypertension for 24 hours unless SBP greater than 220 or DBP greater than 120 or until stroke is ruled out # microcytic anemia - hemoglobin 8.3, was noted to be 6.8 last month - MCV today is 73 - will check iron studies - does not appear to be having active or ongoing blood loss - if patient iron deficient may need outpatient colonoscopy if patient would want to pursue this # CKD stage IIIb -Appears to be at baseline -Avoid nephrotoxic agents -Daily BMPs #Hypothyroidism -Continue Synthroid #Depression/anxiety -Continue home medications #Hypertension - Hold home lisinopril to allow for permissive hypertension # Alzheimer's disease - at baseline patient is not oriented but is conversational and can ambulate and follow commands - can continue rivastigmine #DVT ppx: scds Chelsi Mejia MD Charges/Coding Visit Charges Inpatient E&M: 58956 Init Hosp L2
--- NOTE | 2024-01-14 18:25 | ECHOD_ITS ---
Reason For Study: TIA/Stroke Procedure This was a 2D Doppler, Color Flow transthoracic echocardiogram. Exam performed portable in patient room. Left Ventricle Normal LV size. The estimated ejection fraction is 55-60 %. Right Ventricle Normal right ventricle. Normal systolic function. Atria Normal left atrium. Normal right atrium. Mitral Valve The mitral valve is structurally normal. No prolapse or stenosis seen. Mild (1+) mitral valve insufficiency. Tricuspid Valve Normal tricuspid valve. Mild to moderate (1-2+) tricuspid valve insufficiency. Aortic Valve Trisinus/trileaflet aortic valve. Mild (1+) aortic valve insufficiency. Pulmonic Valve The pulmonic valve is not well visualized. Great Vessels Normal aortic root. Pericardium/Pleural No pericardial effusion. Medication Performed a rapid injection of agitated mix of 9 cc saline and 1cc air to assess for atrial septal defect. MMode/2D Measurements & Calculations LVIDd: 4.0 cm IVSd: 1.0 cm Ao root diam: 2.5 cm LVIDs: 2.3 cm LVPWd: 0.98 cm RVDd: 3.8 cm FS: 41.8 % LAV(MOD-bp): 22.2 ml LVAd ap4: 19.4 cm2 SV(MOD-sp4): 29.2 ml LAV(MOD-bp) Indexed: 14.3 ml/m2 LVLd ap4: 6.4 cm LAV(MOD-sp2): 16.1 ml EDV(MOD-sp4): 48.8 ml LAV(MOD-sp4): 21.1 ml EDV(sp4-el): 50.4 ml LVAs ap4: 11.3 cm2 LVLs ap4: 5.4 cm ESV(MOD-sp4): 19.6 ml ESV(sp4-el): 20.0 ml EF(MOD-sp4): 59.9 % EF(sp4-el): 60.4 % SV(sp4-el): 30.4 ml LA A4 area: 11.8 cm2 LA dimension(2D): 2.4 cm RA A4 area: 9.0 cm2 TAPSE: 2.4 cm Time Measurements MV dec time: 0.32 sec Doppler Measurements & Calculations MV E max chance: 92.3 cm/sec Lat Peak E' Chance: 4.9 cm/sec Med Peak E' Chance: 3.7 cm/sec MV A max chance: 135.0 cm/sec E/E' lat: 18.7 E/E' med: 25.0 MV E/A: 0.68 MV V2 max: 169.9 cm/sec MV dec slope: 284.1 cm/sec2 Ao V2 max: 140.9 cm/sec MV max P.5 mmHg Ao max P.9 mmHg MV V2 mean: 86.7 cm/sec Ao V2 mean: 99.4 cm/sec MV mean P.5 mmHg Ao mean P.3 mmHg MV V2 VTI: 45.3 cm Ao V2 VTI: 31.8 cm AV (velocity ratio): 0.71 AI max chance: 402.8 cm/sec LV V1 max: 114.6 cm/sec PA V2 max: 75.1 cm/sec AI max P.9 mmHg LV V1 max P.3 mmHg AI dec slope: 209.6 cm/sec2 LV V1 mean P.7 mmHg AI P1/2t: 562.9 msec LV V1 mean: 75.8 cm/sec LV V1 VTI: 22.4 cm TR max chance: 293.9 cm/sec TR max P.5 mmHg ECHO/Echo Complete Interpretation Summary The estimated ejection fraction is 55-60 %. Difficult to comment on Buble studies Ordering Physician: Chelsi Mejia Referring Physician: Sayda Peace Performed By: Tennille Fiore, RDCS, RVT
--- OUTSIDE RECORDS SUMMARY | 2024-01-14 19:17 | XMS RPT_ITS | CCD ---
Author Organization [facility] Care Team Providers Care Graphotype Operator Name Role Phone Nata WILKS, Ming Primary Care Provider Nata WILKS, Ming Primary Care Provider [phone] Cary WILKS, Stu Unavailable [phone] Nata WILKS, Ming Primary Care Provider STU [...] Primary Care Unavailable SELF Referring Unavailable OLDER, SOHNDA Attending Unavailable GANTA, MING Primary Care Unavailable OLDER, SHONDA Referring Unavailable GANTA, MING Primary Care Unavailable ZORAN DUMONT L Attending Unavailable GANTA, MING Primary Care Unavailable TIM, ZORAN L Referring Unavailable GANTA, MING Primary Care Unavailable GANTA, MING Primary Care Unavailable GANTA, MING Referring Unavailable GANTA, MING Primary Care Unavailable ABRAMOVICSTU Renteria Referring Unavailable ABRAMOVICH, STU Referring Unavailable GANTA, MING Primary Care Unavailable ABRAMOVICH, STU Referring Unavailable GANTA, MING Primary Care Unavailable SELF Referring Unavailable OLDER, SHONDA Attending Unavailable GANTA, MING Primary Care Unavailable Allergies Allergy Classification Reported Allergen(s) Allergy Type Date of Onset Reaction(s) Facility Amoxicillin / Clavulanate (1 source) Amoxicillin / Clavulanate Drug Allergy 11-11-2012 Diarrhea [facility] Work Phone: donepezil (1 source) donepezil Drug Allergy 04-26-2023 Itching [facility] Quinolones (antibiotic) (2 sources) Ciprofloxacin Drug Allergy 07-18-2010 Rash [facility] (20 sources) Amoxicillin / Clavulanate; Translations: [AMOXICILLIN-POT CLAVULANATE] Drug Allergy 11-11-2012 Diarrhea [facility] Work Phone: (20 sources) Ciprofloxacin; Translations: [CIPROFLOXACIN] Drug Allergy 07-18-2010 Rash [facility] (20 sources) levoFLOXacin; Translations: [LEVOFLOXACIN] Drug Allergy 04-24-2013 Rash [facility] (13 sources) donepezil; Translations: [DONEPEZIL] Drug Allergy 04-26-2023 Itching [facility] Work Phone: Medications Current Medications Medication [...] on above: Take 1 capsule by mo [facility] twice daily for 7 days. doxycycline hyclate [...] Comment on above: Take 1 tablet by [facility] two times a day for 5 days. Completed/Discontinued Medications Medication Drug Class(es) Dates Sig (Normalized) Sig (Original) oxyquinoline sulfate 0.11440 mg/mg / sodium dodecyl sulfate 0.0001 mg/mg [...] Comment on above: Take 1 tablet by [facility] once daily. magnesium oxide 200 mg oral [...] Test Name Value Interpretation Reference Range Facility [facility] 12-24-2023 [facility] Telephone (INTMWS) AINSLEY SORENSON ([id number]) 1935 F Date Time Provider Department 12/24/23 [facility] [place] During your visit today, we recorded the following information about you: Isatu Moreno LPN 12/24/2023 3:59 PM Signed ----- Message from Ming Mcknight MD sent at 12/24/2023 2:33 PM EDT ----- Hb is a little improved from the last time Ming Vargas MD, Mary, LPN 12/24/2023 3:59 PM Signed Updated via Shippter Isatu Moreno LPN December 24, 2023 3:59 PM Allergies As of Date: 12/24/2023 Noted Allergy Reaction ARICEPT (DONEPEZIL) 04/26/2023 9 - Itching AUGMENTIN (AMOXICILLIN-POT CLAVUL*11/11/2012 6 - Diarrhea CIPROFLOXACIN 07/18/2010 2 - Rash LEVAQUIN (LEVOFLOXACIN) 04/24/2013 2 - Rash Comments: itching rash Date Reviewed: 12/10/2023 Reviewed by: Shonda Tyler APRN.FORGING MACHINE HAND - Fully Assessed Reason for Visit: Results [...] Status:Closed by ISATU MORENO on 12/24/23 Normal [facility] CBC W Auto Differential pane l (Bld)on 12-17-2023 Basophils (Bld) [#/Vol] 0.04 10*3/uL Normal <0.11 [facility] Comment on above: Order Comment: Speci men Type: BLOOD SPECIMENOrdering Facility: [facility] Address: [address] [place] [address] Performed By: #### 5 7021-8 ####[facility] LABIA [id number] [place] [address] [place] Basophils/100 WBC (Bld) 0.3 % Normal [facility] Comment on above: Order Comment: Speci men Type: BLOOD SPECIMENOrdering Facility: [facility] Address: [address] [place] [address] Performed By: #### 5 7021-8 ####[facility] LABIA [id number] [place] [address] [place] Differential cell count method Nom (Bld) Auto Normal [facility] Comment on above: Order Comment: Speci men Type: BLOOD SPECIMENOrdering Facility: [facility] Address: [address] [place] [address] Performed By: #### 5 7021-8 ####[facility] LABCLIA [id number] [place] [address] [place] Eosinophils (Bld) [#/Vol] 0.07 10*3/uL Normal <0.46 [facility] Comment on above: Order Comment: Speci men Type: BLOOD SPECIMENOrdering Facility: [facility] Address: [address] [place] [address] Performed By: #### 5 7021-8 ####[facility] LABCLIA [id number] [place] [address] [place] Eosinophils/100 WBC (Bld) 0.5 % Normal [facility] Comment on above: Order Comment: Speci men Type: BLOOD SPECIMENOrdering Facility: [facility] Address: [address] [place] [address] Performed By: #### 5 7021-8 ####[facility] LABIA [id number] [place] [address] [place] Erythrocyte distribution width (RBC) [Ratio] 22.7 % High 11.5-15.0 [facility] Comment on above: Order Comment: Speci men Type: BLOOD SPECIMENOrdering Facility: [facility] Address: [address] [place] [address] Performed By: #### 5 7021-8 ####[facility] LABIA [id number] [place] [address] [place] Hematocrit (Bld) [Volume fraction] 31.5 % Low 36.0-46.0 [facility] Comment on above: Order Comment: Speci men Type: BLOOD SPECIMENOrdering Facility: [facility] Address: [address] [place] [address] Performed By: #### 5 7021-8 ####[facility] LABCLIA [id number] [place] [address] [place] Hemoglobin (Bld) [Mass/Vol] 8.8 g/dL Low 11.5-15.5 [facility] Comment on above: Order Comment: Speci men Type: BLOOD SPECIMENOrdering Facility: [facility] Address: [address] [place] [address] Performed By: #### 5 7021-8 ####[facility] LABCLIA [id number] [place] [address] [place] Immature granulocytes (Bld) [#/Vol] 0.10 10*3/uL High <0.10 [facility] Comment on above: Order Comment: Speci men Type: BLOOD SPECIMENOrdering Facility: [facility] Address: [address] [place] [address] Performed By: #### 5 7021-8 ####[facility] LABCLIA [id number] [place] [address] [place] Immature granulocytes/100 WBC (Bld) 0.8 % Normal [facility] Comment on above: Order Comment: Speci men Type: BLOOD SPECIMENOrdering Facility: [facility] Address: [address] [place] [address] Performed By: #### 5 7021-8 ####[facility] LABCLIA [id number] [place] [address] [place] Lymphocytes (Bld) [#/Vol] 1.19 10*3/uL Normal 1.00-4.00 [facility] Comment on above: Order Comment: Speci men Type: BLOOD SPECIMENOrdering Facility: [facility] Address: [address] [place] [address] Performed By: #### 5 7021-8 ####[facility] LABCLIA [id number] [place] [address] [place] Lymphocytes/100 WBC (Bld) 9.2 % Normal [facility] Comment on above: Order Comment: Speci men Type: BLOOD SPECIMENOrdering Facility: [facility] Address: [address] [place] [address] Performed By: #### 5 7021-8 ####[facility] LABIA [id number] [place] [address] [place] MCH (RBC) [Entitic mass] 20.3 pg Low 26.0-34.0 [facility] Comment on above: Order Comment: Speci men Type: BLOOD SPECIMENOrdering Facility: [facility] Address: [address] [place] [address] Performed By: #### 5 7021-8 ####[facility] LABIA [id number] [place] [address] [place] MCHC (RBC) [Mass/Vol] 27.9 g/dL Low 30.5-36.0 [facility] Comment on above: Order Comment: Speci men Type: BLOOD SPECIMENOrdering Facility: [facility] Address: [address] [place] [address] Performed By: #### 5 7021-8 ####[facility] [id number] [place] [address] [place] MCV (RBC) [Entitic vol] 72.6 fL Low 80.0-100.0 [facility] Comment on above: Order Comment: Speci men Type: BLOOD SPECIMENOrdering Facility: [facility] Address: [address] [place] [address] Performed By: #### 5 7021-8 ####[facility] [id number] [place] [address] [place] Monocytes (Bld) [#/Vol] 0.61 10*3/uL Normal <0.87 [facility] Comment on above: Order Comment: Speci men Type: BLOOD SPECIMENOrdering Facility: [facility] Address: [address] [place] [address] Performed By: #### 5 7021-8 ####[facility] [id number] [place] [address] [place] Monocytes/100 WBC (Bld) 4.7 % Normal [facility] Comment on above: Order Comment: Speci men Type: BLOOD SPECIMENOrdering Facility: [facility] Address: [address] [place] [address] Performed By: #### 5 7021-8 ####[facility] LABCLIA [id number] [place] [address] [place] Neutrophils (Bld) [#/Vol] 10.99 10*3/uL High 1.45-7.50 [facility] Comment on above: Order Comment: Speci men Type: BLOOD SPECIMENOrdering Facility: [facility] Address: [address] [place] [address] Performed By: #### 5 7021-8 ####[facility] LABCLIA [id number] [place] [address] [place] Neutrophils/100 WBC (Bld) 84.5 % Normal [facility] Comment on above: Order Comment: Speci men Type: BLOOD SPECIMENOrdering Facility: [facility] Address: [address] [place] [address] Performed By: #### 5 7021-8 ####[facility] LABCLIA [id number] [place] [address] [place] Nucleated RBC (Bld) [#/Vol] 10*3/uL Normal <0.01 [facility] Comment on above: Order Comment: Speci men Type: BLOOD SPECIMENOrdering Facility: [facility] Address: [address] [place] [address] Performed By: #### 5 7021-8 ####[facility] LABCLIA [id number] [place] [address] [place] Nucleated RBC/100 WBC (Bld) [Ratio] 0.0 /100 WBC Normal [facility] Comment on above: Order Comment: Speci men Type: BLOOD SPECIMENOrdering Facility: [facility] Address: [address] [place] [address] Performed By: #### 5 7021-8 ####[facility] LABCLIA [id number] [place] [address] [place] Platelet mean volume (Bld) [Entitic vol] Normal [facility] Comment on above: Order Comment: Speci men Type: BLOOD SPECIMENOrdering Facility: [facility] Address: [address] [place] [address] Result Comment: Unab le to Report. Performed By: #### 5 7021-8 ####[facility] LABCLIA [id number] [place] [address] [place] Platelets (Bld) [#/Vol] 214 10*3/uL Normal 150-400 [facility] Comment on above: Order Comment: Speci men Type: BLOOD SPECIMENOrdering Facility: [facility] Address: [address] [place] [address] Performed By: #### 5 7021-8 ####[facility] LABIA [id number] [place] [address] [place] RBC (Bld) [#/Vol] 4.34 10*6/uL Normal 3.90-5.20 [facility] Comment on above: Order Comment: Speci men Type: BLOOD SPECIMENOrdering Facility: [facility] Address: [address] [place] [address] Performed By: #### 5 7021-8 ####[facility] LABIA [id number] [place] [address] [place] WBC (Bld) [#/Vol] 13.00 10*3/uL High 3.70-11.00 [facility] Comment on above: Order Comment: Speci men Type: BLOOD SPECIMENOrdering Facility: [facility] Address: [address] [place] [address] Performed By: #### 5 7021-8 ####[facility] LABCLIA [id number] [place] [address] [address] [place] [facility] 12-14-2023 CNPN Telephone (INTMWS) AINSLEY SORENSON ([id number]) 1935 F Date Time Provider Department 12/14/23 MING MCKNIGHT INTMWS During your visit today, we recorded the following information about you: Johanna Gamez RN 12/14/2023 9:35 AM Signed Patient's Daughter calls and states that they had taken patient to [facility] yesterday. Patient's Hgb was 6.8 when patient [...] Date Reviewed: 12/10/2023 Reviewed by: Shonda Tyler APRN.FORGING MACHINE HAND - Fully Assessed Reason for Visit: Patient Update [1234] Primary Visit Diagnosis:Anemia, unspecified type [D64.9] Order(s):COMPLETE BLOOD COUNT AND DIFFERENTIAL [SQCBCDIF] Order #: [id number] FUTURE Prescriptions as of 12/14/2023 - sertraline [...] Encounter Status:Closed by ZORAN GAMBLE on 12/14/23 [facility] Angelo 12-13-2023 [place] Telephone (INTMWS) AINSLEY SORENSON ([id number]) 1935 F Date Time Provider Department 12/13/23 [...] patient daughter who said she lives in [place]. Went over results notes from Shonda Tyler FRUIT RANCHER, she said she does not see mother stools so she does not know, she said she sleeps a lot but thought it is medications. She said she just got back home from [place], she said so I need to get back in my car and come back to [place] and take her to the ER. Asked [...] identify a cause. Thank you Shonda Tyler APRN.FORGING MACHINE HAND KelsyDeeptiGRACE 12/13/2023 4:28 PM Signed Daughter notified, was already on way up from [place] and feels she will just plan on going to ER to be on the safe side. Allergies As of Date: 12/13/2023 Noted Allergy Reaction ARICEPT (DONEPEZIL) 04/26/2023 9 - Itching AUGMENTIN (AMOXICILLIN-POT CLAVUL*11/11/2012 6 - Diarrhea CIPROFLOXACIN 07/18/2010 2 - Rash LEVAQUIN (LEVOFLOXACIN) 04/24/2013 2 - Rash Comments: itching rash Date Reviewed: 12/10/2023 Reviewed by: Shonda Tyler APRN.FORGING MACHINE HAND - Fully Assessed Reason for Visit: Results [...] Status:Closed by DEEPTI TIERNEY on 12/13/23 Normal [facility] CBC W Auto Differential pane l (Bld)on 12-10-2023 Basophils (Bld) [#/Vol] 0.04 10*3/uL Normal <0.11 [facility] Comment on above: Order Comment: Speci men Type: BLOOD SPECIMENOrdering Facility: [facility] Address: [address] [place] [address] Performed By: #### 5 7021-8 ####[facility] LABCLIA [id number] [place] [address] [place] Basophils/100 WBC (Bld) 0.4 % Normal [facility] Comment on above: Order Comment: Speci men Type: BLOOD SPECIMENOrdering Facility: [facility] Address: [address] [place] [address] Performed By: #### 5 7021-8 ####[facility] LABCLIA [id number] [place] [address] [place] Differential cell count method Nom (Bld) Auto Normal [facility] Comment on above: Order Comment: Speci men Type: BLOOD SPECIMENOrdering Facility: [facility] Address: [address] [place] [address] Performed By: #### 5 7021-8 ####[facility] LABCLIA [id number] [place] [address] [place] Eosinophils (Bld) [#/Vol] 0.07 10*3/uL Normal <0.46 [facility] Comment on above: Order Comment: Speci men Type: BLOOD SPECIMENOrdering Facility: [facility] Address: [address] [place] [address] Performed By: #### 5 7021-8 ####[facility] LABCLIA [id number] [place] [address] [place] Eosinophils/100 WBC (Bld) 0.8 % Normal [facility] Comment on above: Order Comment: Speci men Type: BLOOD SPECIMENOrdering Facility: [facility] Address: [address] [place] [address] Performed By: #### 5 7021-8 ####[facility] LABCLIA [id number] [place] [address] [place] Erythrocyte distribution width (RBC) [Ratio] 20.1 % High 11.5-15.0 [facility] Comment on above: Order Comment: Speci men Type: BLOOD SPECIMENOrdering Facility: [facility] Address: [address] [place] [address] Performed By: #### 5 7021-8 ####[facility] LABCLIA [id number] [place] [address] [place] Hematocrit (Bld) [Volume fraction] 26.9 % Low 36.0-46.0 [facility] Comment on above: Order Comment: Speci men Type: BLOOD SPECIMENOrdering Facility: [facility] Address: [address] [place] [address] Performed By: #### 5 7021-8 ####[facility] LABCLIA [id number] [place] [address] [place] Hemoglobin (Bld) [Mass/Vol] 7.1 g/dL Low 11.5-15.5 [facility] Comment on above: Order Comment: Speci men Type: BLOOD SPECIMENOrdering Facility: [facility] Address: [address] [place] [address] Performed By: #### 5 7021-8 ####[facility] LABCLIA [id number] [place] [address] [place] Immature granulocytes (Bld) [#/Vol] 10*3/uL Normal <0.10 [facility] Comment on above: Order Comment: Speci men Type: BLOOD SPECIMENOrdering Facility: [facility] Address: [address] [place] [address] Performed By: #### 5 7021-8 ####[facility] LABCLIA [id number] [place] [address] [place] Immature granulocytes/100 WBC (Bld) 0.2 % Normal [facility] Comment on above: Order Comment: Speci men Type: BLOOD SPECIMENOrdering Facility: [facility] Address: [address] [place] [address] Performed By: #### 5 7021-8 ####[facility] LABCLIA [id number] [place] [address] [place] Lymphocytes (Bld) [#/Vol] 1.16 10*3/uL Normal 1.00-4.00 [facility] Comment on above: Order Comment: Speci men Type: BLOOD SPECIMENOrdering Facility: [facility] Address: [address] [place] [address] Performed By: #### 5 7021-8 ####[facility] LABCLIA [id number] [place] [address] [place] Lymphocytes/100 WBC (Bld) 12.8 % Normal [facility] Comment on above: Order Comment: Speci men Type: BLOOD SPECIMENOrdering Facility: [facility] Address: [address] [place] [address] Performed By: #### 5 7021-8 ####[facility] LABCLIA [id number] [place] [address] [place] MCH (RBC) [Entitic mass] 18.3 pg Low 26.0-34.0 [facility] Comment on above: Order Comment: Speci men Type: BLOOD SPECIMENOrdering Facility: [facility] Address: [address] [place] [address] Performed By: #### 5 7021-8 ####[facility] LABCLIA [id number] [place] [address] [place] MCHC (RBC) [Mass/Vol] 26.4 g/dL Low 30.5-36.0 [facility] Comment on above: Order Comment: Speci men Type: BLOOD SPECIMENOrdering Facility: [facility] Address: [address] [place] [address] Performed By: #### 5 7021-8 ####[facility] LABIA [id number] [place] [address] [place] MCV (RBC) [Entitic vol] 69.5 fL Low 80.0-100.0 [facility] Comment on above: Order Comment: Speci men Type: BLOOD SPECIMENOrdering Facility: [facility] Address: [address] [place] [address] Performed By: #### 5 7021-8 ####[facility] LABCLIA [id number] [place] [address] [place] Monocytes (Bld) [#/Vol] 0.69 10*3/uL Normal <0.87 [facility] Comment on above: Order Comment: Speci men Type: BLOOD SPECIMENOrdering Facility: [facility] Address: [address] [place] [address] Performed By: #### 5 7021-8 ####[facility] LABCLIA [id number] [place] [address] [place] Monocytes/100 WBC (Bld) 7.6 % Normal [facility] Comment on above: Order Comment: Speci men Type: BLOOD SPECIMENOrdering Facility: [facility] Address: [address] [place] [address] Performed By: #### 5 7021-8 ####[facility] LABIA [id number] [place] [address] [place] Neutrophils (Bld) [#/Vol] 7.09 10*3/uL Normal 1.45-7.50 [facility] Comment on above: Order Comment: Speci men Type: BLOOD SPECIMENOrdering Facility: [facility] Address: [address] [place] [address] Performed By: #### 5 7021-8 ####[facility] LABCLIA [id number] [place] [address] [place] Neutrophils/100 WBC (Bld) 78.2 % Normal [facility] Comment on above: Order Comment: Speci men Type: BLOOD SPECIMENOrdering Facility: [facility] Address: [address] [place] [address] Performed By: #### 5 7021-8 ####[facility] LABCLIA [id number] [place] [address] [place] Nucleated RBC (Bld) [#/Vol] 10*3/uL Normal <0.01 [facility] Comment on above: Order Comment: Speci men Type: BLOOD SPECIMENOrdering Facility: [facility] Address: [address] [place] [address] Performed By: #### 5 7021-8 ####[facility] LABCLIA [id number] [place] [address] [place] Nucleated RBC/100 WBC (Bld) [Ratio] 0.0 /100 WBC Normal [facility] Comment on above: Order Comment: Speci men Type: BLOOD SPECIMENOrdering Facility: [facility] Address: [address] [place] [address] Performed By: #### 5 7021-8 ####[facility] LABIA [id number] [place] [address] [place] Platelet mean volume (Bld) [Entitic vol] Normal [facility] Comment on above: Order Comment: Speci men Type: BLOOD SPECIMENOrdering Facility: [facility] Address: [address] [place] [address] Result Comment: Unab le to Report. Performed By: #### 5 7021-8 ####[facility] LABIA [id number] [place] [address] [place] Platelets (Bld) [#/Vol] 195 10*3/uL Normal 150-400 [facility] Comment on above: Order Comment: Speci men Type: BLOOD SPECIMENOrdering Facility: ST. [facility] Address: [address] [place] [address] Performed By: #### 5 7021-8 ####[facility] LABIA [id number] [place] [address] [place] RBC (Bld) [#/Vol] 3.87 10*6/uL Low 3.90-5.20 [facility] Comment on above: Order Comment: Speci men Type: BLOOD SPECIMENOrdering Facility: [facility] Address: [address] [place] [address] Performed By: #### 5 7021-8 ####[facility] LABIA [id number] [place] [address] [place] WBC (Bld) [#/Vol] 9.07 10*3/uL Normal 3.70-11.00 [facility] Comment on above: Order Comment: Speci men Type: BLOOD SPECIMENOrdering Facility: [facility] Address: [address] [place] [address] Performed By: #### 5 7021-8 ####[facility] LABCLIA [id number] ROLAND RE[place]MANK [place] [id number] [facility] CNOVon 12-10-2023 CNOV Office Visit (INTMWS ) AINSLEY SORENSON ([id number]) 1935 F Date Time Provider Department 12/10/23 2:00 PM SHONDA TYLER INTMWANDA During your visit today, we recorded the following information about you: Pulse Blood pressure Weight 68/minute 128/74 47.3 kg Shonda Tyler APRN.FORGING MACHINE HAND 12/10/2023 2:57 PM Signed CC: Patient presents [...] 11/21/2023 R (more content not included)... Normal [facility] Comprehensive metabolic 2000 panelon 12-10-2023 Albumin [Mass/Vol] 3.9 g/dL Normal 3.9-4.9 [facility] Comment on above: Order Comment: Chiquita thornton Type: BLOOD SPECIMENOrdering Facility: [facility] Address: [address] [place] [address] Performed By: #### 3 051-0, 3016-3, 47147-4, 5154-7 ####[facility] LABCLIA [id number] [place] [address] [place] ALP [Catalytic activity/Vol] 94 U/L Normal 34-123 [facility] Comment on above: Order Comment: Chiquita thornton Type: BLOOD SPECIMENOrdering Facility: [facility] Address: [address] [place] [address] Performed By: #### 3 051-0, 3016-3, 56336-4, 3023-7 ####[facility] LABCLIA [id number] [place] [address] [place] ALT [Catalytic activity/Vol] 7 U/L Normal 7-38 [facility] Comment on above: Order Comment: Speci men Type: BLOOD SPECIMENOrdering Facility: [facility] Address: [address] [place] [address] Performed By: #### 3 051-0, 3016-3, 95217-7, 3023-7 ####[facility] LABCLIA [id number] [place] [address] [place] Anion gap [Moles/Vol] 13 mmol/L Normal 8-15 [facility] Comment on above: Order Comment: Speci men Type: BLOOD SPECIMENOrdering Facility: [facility] Address: [address] [place] [address] Performed By: #### 3 051-0, 6-3, 78496-7, 3023-7 ####[facility] LABIA [id number] [place] [address] [place] AST [Catalytic activity/Vol] 20 U/L Normal 13-35 [facility] Comment on above: Order Comment: Speci men Type: BLOOD SPECIMENOrdering Facility: [facility] Address: [address] [place] [address] Performed By: #### 3 051-0, 3016-3, 21988-2, 3023-7 ####[facility] LABCLIA [id number] [place] [address] [place] Bilirubin [Mass/Vol] 0.3 mg/dL Normal 0.2-1.3 [facility] Comment on above: Order Comment: Speci men Type: BLOOD SPECIMENOrdering Facility: [facility] Address: [address] [place] [address] Performed By: #### 3 051-0, 6-3, 37239-2, 3024-7 ####[facility] LABCLIA [id number] [address] [address] [place] Calcium [Mass/Vol] 9.0 mg/dL Normal 8.5-10.2 [facility] Comment on above: Order Comment: Speci men Type: BLOOD SPECIMENOrdering Facility: [facility] Address: [address] [place] [address] Performed By: #### 3 051-0, 3016-3, 63770-8, 3023-7 ####[facility] LABIA [id number] [place] [address] [place] Chloride [Moles/Vol] 106 mmol/L Normal 98-107 [facility] Comment on above: Order Comment: Speci men Type: BLOOD SPECIMENOrdering Facility: [facility] Address: [address] [place] [address] Performed By: #### 3 051-0, 6-3, 22710-8, 3023-7 ####[facility] LABIA [id number] [place] [address] [place] CO2 [Moles/Vol] 22 mmol/L Normal 22-30 [facility] Comment on above: Order Comment: Speci men Type: BLOOD SPECIMENOrdering Facility: [facility] Address: [address] [place] [address] Performed By: #### 3 051-0, 3016-3, 89543-9, 3024-7 ####[facility] LABIA [id number] [place] [address] [place] Creatinine [Mass/Vol] 1.31 mg/dL High 0.58-0.96 [facility] Comment on above: Order Comment: Speci men Type: BLOOD SPECIMENOrdering Facility: [facility] Address: [address] [place] [address] Performed By: #### 3 051-0, 3016-3, 21503-4, 3024-7 ####[facility] LABCLIA [id number] [place] [address] [place] Creatinine and Glomerular filtration rate.predicted panel (S/P/Bld) 40 mL/min/1.73m??? Low >=60 [facility] Comment on above: Order Comment: Chiquita thornton Type: BLOOD SPECIMENOrdering Facility: [facility] Address: [address] [place] [address] Result Comment: Genesis mated Glomerular Filtration Rate [...] GFR. Performed By: #### 3 051-0, 3016-3, 46338-8, 3024-7 ####[facility] LABCLIA [id number] [place] [id number] [place] Glucose [Mass/Vol] 99 mg/dL Normal 74-99 [facility] Comment on above: Order Comment: Chiquita thornton Type: BLOOD SPECIMENOrdering Facility: [facility] Address: [address] [place] [address] Result Comment: The [place] [employer] (ADA) provides guidance for cutoff [...] Standards of Medical Care in Diabetes 2016, [place] [employer]. Diabetes Care. 2016.39(Suppl 1). Performed By: #### 3 051-0, 3016-3, 80997-4, 7 ####[facility] LABCLIA [id number] [address] [address] [place] Potassium [Moles/Vol] 4.1 mmol/L Normal 3.7-5.1 [facility] Comment on above: Order Comment: Speci men Type: BLOOD SPECIMENOrdering Facility: [facility] Address: [address] [place] [address] Performed By: #### 3 051-0, 3016-3, 02017-8, 7 ####[facility] LABIA [id number] [place] [address] [place] Protein [Mass/Vol] 6.4 g/dL Normal 6.3-8.0 [facility] Comment on above: Order Comment: Speci men Type: BLOOD SPECIMENOrdering Facility: [facility] Address: [address] [place] [address] Performed By: #### 3 051-0, 3016-3, 35107-6, 7 ####[facility] LABIA [id number] [place] [id number] [place] Sodium [Moles/Vol] 141 mmol/L Normal 136-144 [facility] Comment on above: Order Comment: Speci men Type: BLOOD SPECIMENOrdering Facility: [facility] Address: [address] [place] [address] Performed By: #### 3 051-0, 3016-3, 40417-4, 7 ####[facility] LABCLIA [id number] [address] [address] [place] Urea nitrogen [Mass/Vol] 18 mg/dL Normal 7-21 [facility] Comment on above: Order Comment: Speci men Type: BLOOD SPECIMENOrdering Facility: [facility] Address: [address] [place] [address] Performed By: #### 3 051-0, 3016-3, 84766-6, 7 ####[facility] LABCLIA [id number] [place] [address] [place] T3Free SerPl-mCncon 12-10-19 24 Free T3 [Mass/Vol] 2.2 pg/mL Low 2.3-4.1 [facility] Comment on above: Order Comment: Speci men Type: BLOOD SPECIMENOrdering Facility: [facility] Address: [address] [place] [address] Performed By: #### 3 051-0, 6-3, 61906-4, 7 ####[facility] LABCLIA [id number] [place] [address] [place] T4 Free SerPl-mCncon 024 Free T4 [Mass/Vol] 1.1 ng/dL Normal 0.9-1.7 [facility] Comment on above: Order Comment: Speci men Type: BLOOD SPECIMENOrdering Facility: [facility] Address: [address] [place] [address] Performed By: #### 3 051-0, 6-3, 05072-1, 7 ####[facility] LABCLIA [id number] [place] [address] [place] TSH SerPl-aCncon 12-10-2023 TSH Qn 2.210 m[IU]/L Normal 0.270-4.200 [facility] Comment on above: Order Comment: Speci men Type: BLOOD SPECIMENOrdering Facility: [facility] Address: [address] [place] [address] Performed By: #### 3 051-0, 3016-3, 95553-9, 7 ####[facility] LABCLIA [id number] [address] [address] [facility] Angelo [facility]-20[facility] AINSLEY SORENSON ([id number]) 1935 F Date Time Provider Department 09/24/23 KRYSTAL MEZA [facility] During your visit today, we recorded the [...] about any antibiotic. Please send antibiotic to [facility] in [place] and call and leave a VM on [...] Encounter Status:Closed by LILIA RICHMOND [facility] Telephone (RAISA) AINSLEY SORENSON ([id number]) 1935 F Date Time Provider Department 09/22/23 [...] Status:Closed by SHONDA TYLER on 10/14/23 Normal [facility] Bacteria Ur Culton 4 Bacteria identified [...] Resistant >=1 Nitrofurantoin R 65 F Abnormal [facility] Comment on above: Performed By: #### 6 30-4 ####[facility] LABCLIA [id number] [place] [address] [place] Urinalysis complete panel (U )on 09-21-2023 Bacteria LM.HPF (Urine sed) [#/Area] Negative Normal Negative [facility] Comment on above: Order Comment: Speci men Type: URINE SPECIMENOrdering Facility: [facility] Address: [address] [place] [address] Performed By: #### 2 4356-8 ####[facility] LABCLIA [id number] [place] [address] [place] Bilirubin Ql (U) Negative Normal Negative [facility] Comment on above: Order Comment: Speci men Type: URINE SPECIMENOrdering Facility: [facility] Address: [address] [place] [address] Performed By: #### 2 4356-8 ####[facility] LABIA [id number] [place] [address] [place] Clarity (Unsp spec) Clear Normal Clear [facility] Comment on above: Order Comment: Speci men Type: URINE SPECIMENOrdering Facility: [facility] Address: [address] [place] [address] Performed By: #### 2 4356-8 ####[facility] LABCLIA [id number] [place] [address] [place] Color (U) Yellow Normal Yellow [facility] Comment on above: Order Comment: Speci men Type: URINE SPECIMENOrdering Facility: [facility] Address: [address] [place] [address] Performed By: #### 2 4356-8 ####[facility] LABCLIA [id number] [place] [address] [place] Epithelial cells LM.HPF (Urine sed) [#/Area] None Seen Normal [facility] Comment on above: Order Comment: Speci men Type: URINE SPECIMENOrdering Facility: [facility] Address: [address] [place] [address] Performed By: #### 2 4356-8 ####[facility] LABCLIA [id number] [place] [address] [place] Glucose Test strip (U) [Mass/Vol] Negative Normal Negative [facility] Comment on above: Order Comment: Speci men Type: URINE SPECIMENOrdering Facility: [facility] Address: [address] [place] [address] Performed By: #### 2 4356-8 ####[facility] LABIA [id number] [place] [address] [place] Hemoglobin Ql (U) Negative Normal Negative [facility] Comment on above: Order Comment: Speci men Type: URINE SPECIMENOrdering Facility: [facility] Address: [address] [place] [address] Performed By: #### 2 4356-8 ####[facility] LABCLIA [id number] [place] [address] [place] Hyaline casts (Urine sed) [#/Area] 0 /[LPF] Normal 0 /LPF [facility] Comment on above: Order Comment: Speci men Type: URINE SPECIMENOrdering Facility: [facility] Address: [address] [place] [address] Performed By: #### 2 4356-8 ####[facility] LABCLIA [id number] [place] [address] [place] Ketones Ql (U) Negative Normal Negative [facility] Comment on above: Order Comment: Speci men Type: URINE SPECIMENOrdering Facility: [facility] Address: [address] [place] [address] Performed By: #### 2 4356-8 ####[facility] LABCLIA [id number] [place] [address] [place] Leukocyte esterase Test strip Ql (U) 2+ Abnormal Negative [facility] Comment on above: Order Comment: Speci men Type: URINE SPECIMENOrdering Facility: [facility] Address: [address] [place] [address] Performed By: #### 2 4356-8 ####[facility] LABCLIA [id number] [place] [address] [place] Nitrite Ql (U) Negative Normal Negative [facility] Comment on above: Order Comment: Speci men Type: URINE SPECIMENOrdering Facility: [facility] Address: [address] [place] [address] Performed By: #### 2 4356-8 ####[facility] LABCLIA [id number] [place] [address] [place] pH (U) 7.0 [pH] Normal <8.5 [facility] Comment on above: Order Comment: Speci men Type: URINE SPECIMENOrdering Facility: [facility] Address: [address] [place] [address] Performed By: #### 2 4356-8 ####[facility] LABCLIA [id number] [place] [address] [place] Protein (U) [Mass/Vol] Negative Normal Negative [facility] Comment on above: Order Comment: Speci men Type: URINE SPECIMENOrdering Facility: [facility] Address: [address] [place] [address] Performed By: #### 2 4356-8 ####[facility] LABIA [id number] [place] [address] [place] RBC LM.HPF (Urine sed) [#/Area] 0-2 /HPF Normal 0-2 /HPF [facility] Comment on above: Order Comment: Speci men Type: URINE SPECIMENOrdering Facility: [facility] Address: [address] [place] [address] Performed By: #### 2 4356-8 ####[facility] [id number] [place] [address] [place] Specific gravity (U) [Rel density] 1.017 Normal 1.005-1.030 [facility] Comment on above: Order Comment: Speci men Type: URINE SPECIMENOrdering Facility: [facility] Address: [address] [place] [address] Performed By: #### 2 4356-8 ####[facility] LABIA [id number] [place] [address] [place] Urobilinogen Ql (U) 1.0 EU/dL Normal 0.2-1.0 EU/dL [facility] Comment on above: Order Comment: Speci men Type: URINE SPECIMENOrdering Facility: [facility] Address: [address] [place] [address] Performed By: #### 2 4356-8 ####[facility] LABIA [id number] [place] [address] [place] WBC LM.HPF (Urine sed) [#/Area] 11-20 /HPF Abnormal 0-5 /HPF [facility] Comment on above: Order Comment: Speci men Type: URINE SPECIMENOrdering Facility: [facility] Address: [address] [place] [address] Performed By: #### 2 4356-8 ####[facility] BOUBACAR [id number] ROLAND SANCHES [id number] [facility] Angelo 08-18-2023 C[facility] Telephone (INTMWS) AINSLEY SORENSON ([id number]) 1935 F Date Time Provider Department 08/18/23 SHONDA TYLER During your visit today, we recorded the following information about you: Shonda Tyler APRN.FORGING MACHINE HAND 08/18/2023 2:32 PM Signed Urine still with [...] 0 URINALYSIS, WITH MICROSCOPIC [SQUAWMIC] Order #: [id number] FUTURE URINE CULTURE [SQURCUL] Order #: [id number] FUTURE Prescriptions as of 08/18/2023 - sulfamethoxazole-trime [...] Status:Closed by DEEPTI TIERNEY on 08/18/23 Normal [facility] Bacteria Ur Culton 4 Bacteria identified Cx Nom (U) ORGANISM ID: 1 50,000-<100,000 CFU/ml Lactose negative gram negative bacilli No susceptibility testing done. Call lab within 72 hours to initiate work-up if clinically indicated. ORGANISM ID: 2 50,000-<100,000 CFU/ml Normal urogenital aleksandr Normal [facility] Comment on above: Performed By: #### 6 30-4 ####[facility] LABCLIA [id number] [address] [facility] CNOVon 08-13-2023 CNOV Office Visit (INTMWS ) AINSLEY SORENSON ([id number]) 1935 F Date Time Provider Department 08/13/23 [...] ICD9: V13.0 (more content not included)... Normal [facility] UA DIP, URINE (POC)on 2023 BILIRUBIN UA (POCT) Negative Negative [facility] CLARITY UA (POCT) Slightly Cloudy Cl [facility] COLOR UA (POCT) Other [facility] GLUCOSE UA (POCT) Negative Negative mg/dL [facility] Hemoglobin Ql (U) Trace-intact Abnormal Negative [facility] Interpretation and review of laboratory results Abnormal [facility] KETONE UA (POCT) Negative Negative mg/dL [facility] LEUKOCYTES UA (POCT) Small Abnormal Negative [facility] NITRITE UA (POCT) Negative Negative [facility] PH UA (POCT) 6.0 4.5 - 8.0 [facility] Protein Ql (U) Negative Negative mg/dL [facility] SPECIFIC GRAVITY UA (POCT) 1.020 1.005 - 1.030 [facility] UROBILINOGEN UA (POCT) 0.2 Normal E.U./dL [facility] Location:[address], [place], [place], [id number] [place] [address] POINT OF CARE [facility] 04-29-2023 SABIHAN Telephone (INTMWS) AINSLEY SORENSON ([id number]) 1935 F Date Time Provider Department 04/29/23 [...] Status:Closed by SUZY LINDO on 04/29/23 Normal [facility] Urinalysis complete panel (U )on 04-27-2023 Bacteria LM.HPF (Urine sed) [#/Area] Negative Normal Negative [facility] Comment on above: Order Comment: Speci men Type: URINE SPECIMENOrdering Facility: [facility] Address: [address] [place] [address] Performed By: #### 2 4356-8 ####[facility] LABCLIA [id number] [place] [address] [place] Bilirubin Ql (U) Negative Normal Negative [facility] Comment on above: Order Comment: Speci men Type: URINE SPECIMENOrdering Facility: [facility] Address: [address] [place] [address] Performed By: #### 2 4356-8 ####[facility] LABCLIA [id number] [place] [address] [place] Clarity (Unsp spec) Clear Normal Clear [facility] Comment on above: Order Comment: Speci men Type: URINE SPECIMENOrdering Facility: [facility] Address: [address] [place] [address] Performed By: #### 2 4356-8 ####[facility] LABCLIA [id number] [place] [address] [place] Color (U) Yellow Normal Yellow [facility] Comment on above: Order Comment: Speci men Type: URINE SPECIMENOrdering Facility: [facility] Address: [address] [place] [address] Performed By: #### 2 4356-8 ####[facility] LABCLIA [id number] [place] [address] [place] Epithelial cells LM.HPF (Urine sed) [#/Area] None Seen Normal [facility] Comment on above: Order Comment: Speci men Type: URINE SPECIMENOrdering Facility: [facility] Address: [address] [place] [address] Performed By: #### 2 4356-8 ####[facility] LABCLIA [id number] [place] [address] [place] Glucose Test strip (U) [Mass/Vol] Negative Normal Negative [facility] Comment on above: Order Comment: Speci men Type: URINE SPECIMENOrdering Facility: [facility] Address: [address] [place] [address] Performed By: #### 2 4356-8 ####[facility] LABCLIA [id number] [place] [address] [place] Hemoglobin Ql (U) Negative Normal Negative [facility] Comment on above: Order Comment: Speci men Type: URINE SPECIMENOrdering Facility: [facility] Address: [address] [place] [address] Performed By: #### 2 4356-8 ####[facility] LABCLIA [id number] [place] [address] [place] Hyaline casts (Urine sed) [#/Area] 1-3 /LPF Abnormal 0 /LPF [facility] Comment on above: Order Comment: Speci men Type: URINE SPECIMENOrdering Facility: [facility] Address: [address] [place] [address] Performed By: #### 2 4356-8 ####[facility] LABCLIA [id number] [place] [address] [place] Ketones Ql (U) Negative Normal Negative [facility] Comment on above: Order Comment: Speci men Type: URINE SPECIMENOrdering Facility: [facility] Address: [address] [place] [address] Performed By: #### 2 4356-8 ####[facility] LABCLIA [id number] [place] [address] [place] Leukocyte esterase Test strip Ql (U) 2+ Abnormal Negative [facility] Comment on above: Order Comment: Speci men Type: URINE SPECIMENOrdering Facility: [facility] Address: [address] [place] [address] Performed By: #### 2 4356-8 ####[facility] LABCLIA [id number] [place] [id number] [place] Nitrite Ql (U) Negative Normal Negative [facility] Comment on above: Order Comment: Speci men Type: URINE SPECIMENOrdering Facility: [facility] Address: [address] [place] [address] Performed By: #### 2 4356-8 ####[facility] LABIA [id number] [place] [address] [place] pH (U) 6.0 [pH] Normal <8.5 [facility] Comment on above: Order Comment: Speci men Type: URINE SPECIMENOrdering Facility: [facility] [facility] Address: [address] [place] [address] Performed By: #### 2 4356-8 ####[facility] LABIA [id number] [place] [address] [place] Protein (U) [Mass/Vol] Negative Normal Negative [facility] Comment on above: Order Comment: Speci men Type: URINE SPECIMENOrdering Facility: [facility] Address: [address] [place] [address] Performed By: #### 2 4356-8 ####[facility] LABIA [id number] [place] [address] [place] RBC LM.HPF (Urine sed) [#/Area] 0-2 /HPF Normal 0-2 /HPF [facility] Comment on above: Order Comment: Speci men Type: URINE SPECIMENOrdering Facility: [facility] Address: [address] [place] [address] Performed By: #### 2 4356-8 ####[facility] LABIA [id number] [place] [address] [place] Specific gravity (U) [Rel density] 1.017 Normal 1.005-1.030 [facility] Comment on above: Order Comment: Speci men Type: URINE SPECIMENOrdering Facility: [facility] Address: [address] [place] [address] Performed By: #### 2 4356-8 ####[facility] LABIA [id number] [place] [address] [place] Urobilinogen Ql (U) 1.0 EU/dL Normal 0.2-1.0 EU/dL Cl [facility] Comment on above: Order Comment: Speci men Type: URINE SPECIMENOrdering Facility: [facility] Address: [address] [place] [address] Performed By: #### 2 4356-8 ####[facility] LABIA [id number] [place] [address] [place] WBC LM.HPF (Urine sed) [#/Area] /[HPF] Abnormal 0-5 /HPF [facility] Comment on above: Order Comment: Speci men Type: URINE SPECIMENOrdering Facility: [facility] Address: [address] [place] [address] Performed By: #### 2 4356-8 ####[facility] LABIA [id number] [place] [address] [place] Urinalysis complete pnl [...] , Intermediate >32 , Resistant >64 Abnormal [facility] Comment on above: Order Comment: Speci men Type: URINE SPECIMENOrdering Facility: [facility] Address: [address] [place] [address] Performed By: #### 2 4356-8 ####[facility] LABCHRISTI [id number] [address] [address] [place] CNOVon 04-26-2023 CNOV Office Visit (INTMWS ) AINSLEY SORENSON ([id number]) 1935 F Date Time Provider Department 04/26/23 1:20 PM OLDER, SHONDA KLINE During your visit today, we recorded the following information about you: Pulse Respiration Blood pressure Weight 72/minute 16/minute 128/70 49 kg OlderShonda APRN.FORGING MACHINE HAND 04/26/2023 2:41 PM Signed CC: Patient presents [...] SENTENCE 0 (more content not included)... Normal [facility] Comprehensive metabolic 2000 panelon 04-26-2023 Albumin [Mass/Vol] 4.2 g/dL Normal 3.9-4.9 [facility] Comment on above: Order Comment: Speci men Type: BLOOD SPECIMENOrdering Facility: [facility] Address: [address] [place] [address] Performed By: #### 2 4323-8, 3016-3, 302-7 ####[facility] [id number] [place] [address] [place] ALP [Catalytic activity/Vol] 105 U/L Normal 34-123 [facility] Comment on above: Order Comment: Speci men Type: BLOOD SPECIMENOrdering Facility: [facility] Address: [address] [place] [address] Performed By: #### 2 4323-8, 3016-3, 3024-7 ####[facility] LABIA [id number] [place] [address] [place] ALT [Catalytic activity/Vol] 8 U/L Normal 7-38 [facility] Comment on above: Order Comment: Speci men Type: BLOOD SPECIMENOrdering Facility: [facility] Address: [address] [place] [address] Performed By: #### 2 4323-8, 3016-3, 302-7 ####[facility] LABCLIA [id number] [address] [address] [place] Anion gap [Moles/Vol] 11 mmol/L Normal 9-18 [facility] Comment on above: Order Comment: Speci men Type: BLOOD SPECIMENOrdering Facility: [facility] Address: [address] [place] [address] Performed By: #### 2 4323-8, 6-3, 7 ####[facility] LABIA [id number] [place] [address] [place] AST [Catalytic activity/Vol] 18 U/L Normal 13-35 [facility] Comment on above: Order Comment: Speci men Type: BLOOD SPECIMENOrdering Facility: [facility] Address: [address] [place], [place] [address] Performed By: #### 2 4323-8, 3015-3, 7 ####[facility] LABIA [id number] [place] [address] [place] Bilirubin [Mass/Vol] 0.3 mg/dL Normal 0.2-1.3 [facility] Comment on above: Order Comment: Speci men Type: BLOOD SPECIMENOrdering Facility: [facility] Address: [address] [place] [address] Performed By: #### 2 4323-8, 3015-3, 7 ####[facility] LABIA [id number] [address] [address] [place] Calcium [Mass/Vol] 9.6 mg/dL Normal 8.5-10.2 [facility] Comment on above: Order Comment: Speci men Type: BLOOD SPECIMENOrdering Facility: [facility] Address: [address] [place] [address] Performed By: #### 2 4323-8, 6-3, 3023-7 ####[facility] LABIA [id number] [address] [address] [place] Chloride [Moles/Vol] 104 mmol/L Normal 97-105 [facility] Comment on above: Order Comment: Speci men Type: BLOOD SPECIMENOrdering Facility: [facility] Address: [address] [place] [address] Performed By: #### 2 4323-8, 6-3, 7 ####[facility] LABIA [id number] [place] [address] [place] CO2 [Moles/Vol] 26 mmol/L Normal 22-30 [facility] Comment on above: Order Comment: Speci men Type: BLOOD SPECIMENOrdering Facility: [facility] Address: [address] [place] [address] Performed By: #### 2 4323-8, 3015-3, 7 ####[facility] LABIA [id number] [place] [address] [place] Creatinine [Mass/Vol] 1.25 mg/dL High 0.58-0.96 [facility] Comment on above: Order Comment: Speci men Type: BLOOD SPECIMENOrdering Facility: [facility] Address: [address] [place] [address] Performed By: #### 2 4323-8, 3, 7 ####[facility] LABIA [id number] [address] [address] [place] Creatinine and Glomerular filtration rate.predicted panel (S/P/Bld) 42 mL/min/1.73m??? Low >=60 [facility] Comment on above: Order Comment: Speci men Type: BLOOD SPECIMENOrdering Facility: [facility] Address: [address] [place] [address] Result Comment: Genesis mated Glomerular Filtration Rate [...] Performed By: #### 2 4323-8, 6-3, 3023-09 ####[facility] LABCLIA [id number] [facility] [address] [address] [place] Glucose [Mass/Vol] 100 mg/dL High 74-99 [facility] Comment on above: Order Comment: Speci men Type: BLOOD SPECIMENOrdering Facility: [facility] Address: [address] [place] [address] Result Comment: The [place] [employer] (ADA) provides guidance for cutoff [...] Standards of Medical Care in Diabetes 2016, [place] [employer]. Diabetes Care. 2016.39(Suppl 1). Performed By: #### 2 4323-8, 3015-3, 3023-09 ####[facility] LABCLIA [id number] [address] [address] [place] Potassium [Moles/Vol] 4.2 mmol/L Normal 3.7-5.1 [facility] Comment on above: Order Comment: Speci men Type: BLOOD SPECIMENOrdering Facility: [facility] Address: [address] [place] [address] Performed By: #### 2 4323-8, 6-3, 7 ####[facility] LABCLIA [id number] [place] [address] [place] Protein [Mass/Vol] 7.0 g/dL Normal 6.3-8.0 [facility] Comment on above: Order Comment: Speci men Type: BLOOD SPECIMENOrdering Facility: [facility] Address: [address] [place] [address] Performed By: #### 2 4323-8, 3016-3, 3023-7 ####[facility] LABCLIA [id number] [place] [address] [place] Sodium [Moles/Vol] 141 mmol/L Normal 136-144 [facility] Comment on above: Order Comment: Speci men Type: BLOOD SPECIMENOrdering Facility: [facility] Address: [address] [place] [address] Performed By: #### 2 4323-8, 3016-3, 7 ####[facility] LABCLIA [id number] [place] [address] [place] Urea nitrogen [Mass/Vol] 15 mg/dL Normal 7-21 [facility] Comment on above: Order Comment: Speci men Type: BLOOD SPECIMENOrdering Facility: [facility] Address: [address] [place] [address] Performed By: #### 2 4323-8, 3016-3, 7 ####[facility] LABCLIA [id number] [place] [address] [place] T4 Free SerPl-mCncon 024 Free T4 [Mass/Vol] 1.2 ng/dL Normal 0.9-1.7 [facility] Comment on above: Order Comment: Speci men Type: BLOOD SPECIMENOrdering Facility: [facility] Address: [address] [place] [address] Performed By: #### 2 4323-8, 3016-3, 302-7 ####[facility] LABCLIA [id number] [address] [address] [place] TSH SerPl-aCncon 04-26-2023 TSH Qn 1.310 m[IU]/L Normal 0.270-4.200 [facility] Comment on above: Order Comment: Speci men Type: BLOOD SPECIMENOrdering Facility: [facility] Address: [address] [place] [address] Performed By: #### 2 4323-8, 3016-3, 3024-7 ####[facility] LABCLIA [id number] [place] [address] [place] CBC W Auto Differential pane l (Bld)on 03-12-2023 Basophils (Bld) [#/Vol] 0.05 10*3/uL Normal <0.11 [facility] Comment on above: Order Comment: Speci men Type: BLOOD SPECIMENOrdering Facility: [facility] Address: [address] [place] [address] Performed By: #### 5 7021-8 ####[facility] [id number] [place] [address] [place] Basophils/100 WBC (Bld) 0.7 % Normal [facility] Comment on above: Order Comment: Speci men Type: BLOOD SPECIMENOrdering Facility: [facility] Address: [address] [place] [address] Performed By: #### 5 7021-8 ####[facility] [id number] [place] [address] [place] Differential cell count method Nom (Bld) Auto Normal [facility] Comment on above: Order Comment: Speci men Type: BLOOD SPECIMENOrdering Facility: [facility] Address: [address] [place] [address] Performed By: #### 5 7021-8 ####[facility] [id number] [place] [address] [place] Eosinophils (Bld) [#/Vol] 0.17 10*3/uL Normal <0.46 [facility] Comment on above: Order Comment: Speci men Type: BLOOD SPECIMENOrdering Facility: [facility] Address: [address] [place] [address] Performed By: #### 5 7021-8 ####[facility]ITALNCINTER[facility] [id number] [place] [address] [place] Eosinophils/100 WBC (Bld) 2.3 % Normal [facility] Comment on above: Order Comment: Speci men Type: BLOOD SPECIMENOrdering Facility: [facility] Address: [address] [place] [address] Performed By: #### 5 7021-8 ####[facility]ITALNCINTER[facility] [id number] [place] [address] [place] Erythrocyte distribution width (RBC) [Ratio] 22.3 % High 11.5-15.0 [facility] Comment on above: Order Comment: Speci men Type: BLOOD SPECIMENOrdering Facility: [facility] Address: [address] [place] [address] Performed By: #### 5 7021-8 ####[facility] [id number] [place] [address] [place] Hematocrit (Bld) [Volume fraction] 36.4 % Normal 36.0-46.0 [facility] Comment on above: Order Comment: Speci men Type: BLOOD SPECIMENOrdering Facility: [facility] Address: [address] [place] [address] Performed By: #### 5 7021-8 ####[facility]ITALNC[facility] [id number] [place] [address] [place] Hemoglobin (Bld) [Mass/Vol] 10.4 g/dL Low 11.5-15.5 [facility] Comment on above: Order Comment: Speci men Type: BLOOD SPECIMENOrdering Facility: [facility] Address: [address] [place] [address] Performed By: #### 5 7021-8 ####[facility] MILLWNCLIA [id number] [place] [address] [place] Immature granulocytes (Bld) [#/Vol] 10*3/uL Normal <0.10 [facility] Comment on above: Order Comment: Speci men Type: BLOOD SPECIMENOrdering Facility: [facility] Address: [address] [place] [address] Performed By: #### 5 7021-8 ####[facility] MILLWNCLIA [id number] [place] [address] [place] Immature granulocytes/100 WBC (Bld) 0.1 % Normal [facility] Comment on above: Order Comment: Speci men Type: BLOOD SPECIMENOrdering Facility: [facility] Address: [address] [place] [address] Performed By: #### 5 7021-8 ####[facility]ENTERLIA [id number] [place] [address] [place] Lymphocytes (Bld) [#/Vol] 1.17 10*3/uL Normal 1.00-4.00 [facility] Comment on above: Order Comment: Speci men Type: BLOOD SPECIMENOrdering Facility: [facility] Address: [address] [place] [address] Performed By: #### 5 7021-8 ####[facility] MILLTOWNCLIA [id number] [place] [address] [place] Lymphocytes/100 WBC (Bld) 15.7 % Normal [facility] Comment on above: Order Comment: Speci men Type: BLOOD SPECIMENOrdering Facility: [facility] Address: [address] [place] [address] Performed By: #### 5 7021-8 ####[facility]ITALNCLIA [id number] [place] [address] [place] MCH (RBC) [Entitic mass] 22.7 pg Low 26.0-34.0 [facility] Comment on above: Order Comment: Speci men Type: BLOOD SPECIMENOrdering Facility: [facility] Address: [address] [place] [address] Performed By: #### 5 7021-8 ####[facility]OSPITALJESSYINTERMOUNTAIN HEALTHCARE [id number] [place] [address] [place] MCHC (RBC) [Mass/Vol] 28.6 g/dL Low 30.5-36.0 [facility] Comment on above: Order Comment: Speci men Type: BLOOD SPECIMENOrdering Facility: [facility] Address: [address] [place] [address] Performed By: #### 5 7021-8 ####[facility]ITALJESSYINTERMOUNTAIN HEALTHCARE [id number] [place] [address] [place] MCV (RBC) [Entitic vol] 79.5 fL Low 80.0-100.0 [facility] Comment on above: Order Comment: Speci men Type: BLOOD SPECIMENOrdering Facility: [facility] Address: [address] [place] [address] Performed By: #### 5 7021-8 ####[facility] [id number] [place] [address] [place] Monocytes (Bld) [#/Vol] 0.40 10*3/uL Normal <0.87 [facility] Comment on above: Order Comment: Speci men Type: BLOOD SPECIMENOrdering Facility: [facility] Address: [address] [place] [address] Performed By: #### 5 7021-8 ####[facility] HOSPITALNCA [id number] [place] [address] [place] Monocytes/100 WBC (Bld) 5.4 % Normal [facility] Comment on above: Order Comment: Speci men Type: BLOOD SPECIMENOrdering Facility: [facility] Address: [address] [place] [address] Performed By: #### 5 7021-8 ####[facility] RODNEYEAST BRUNSWICKJESSYLIA [id number] [place] [address] [place] Neutrophils (Bld) [#/Vol] 5.65 10*3/uL Normal 1.45-7.50 [facility] Comment on above: Order Comment: Speci men Type: BLOOD SPECIMENOrdering Facility: [facility] Address: [address] [place] [address] Performed By: #### 5 7021-8 ####[facility]ENTERA [id number] [place] [address] [place] Neutrophils/100 WBC (Bld) 75.8 % Normal [facility] Comment on above: Order Comment: Speci men Type: BLOOD SPECIMENOrdering Facility: [facility] Address: [address] [place] [address] Performed By: #### 5 7021-8 ####[facility]A [id number] [place] [address] [place] Nucleated RBC (Bld) [#/Vol] 10*3/uL Normal <0.01 [facility] Comment on above: Order Comment: Speci men Type: BLOOD SPECIMENOrdering Facility: [facility] Address: [address] [place] [address] Performed By: #### 5 7021-8 ####[facility]ITALNCLIA [id number] [place] [address] [place] Nucleated RBC/100 WBC (Bld) [Ratio] 0.0 /100 WBC Normal [facility] Comment on above: Order Comment: Speci men Type: BLOOD SPECIMENOrdering Facility: [facility] Address: [address] [place] [address] Performed By: #### 5 7021-8 ####[facility]ITALNCLIA [id number] [place] [address] [place] Platelet mean volume (Bld) [Entitic vol] 10.2 fL Normal 9.0-12.7 [facility] Comment on above: Order Comment: Speci men Type: BLOOD SPECIMENOrdering Facility: [facility] Address: [address] [place] [address] Performed By: #### 5 7021-8 ####[facility]ITALNCLIA [id number] [place] [address] [place] Platelets (Bld) [#/Vol] 179 10*3/uL Normal 150-400 [facility] Comment on above: Order Comment: Speci men Type: BLOOD SPECIMENOrdering Facility: [facility] Address: [address] [place] [address] Result Comment: No c lot detected. Performed By: #### 5 7021-8 ####[facility]A [id number] [place] [address] [place] RBC (Bld) [#/Vol] 4.58 10*6/uL Normal 3.90-5.20 [facility] Comment on above: Order Comment: Speci men Type: BLOOD SPECIMENOrdering Facility: [facility] Address: [address] [place] [address] Performed By: #### 5 7021-8 ####[facility]ITALNCLIA [id number] [place] [address] [place] WBC (Bld) [#/Vol] 7.45 10*3/uL Normal 3.70-11.00 [facility] Comment on above: Order Comment: Speci men Type: BLOOD SPECIMENOrdering Facility: [facility] Address: [address] [place] [address] Performed By: #### 5 7021-8 ####[facility]A [id number] [place] [id number] [place] Ferritin SerPl-mCncon 2022 Ferritin [Mass/Vol] 103.0 ng/mL Normal 14.7-205.1 [facility] Comment on above: Order Comment: Speci men Type: BLOOD SPECIMENOrdering Facility: [facility] Address: [address] [place] [address] Performed By: #### 2 276-4, 92532-0 ####[facility] LABCLIA [id number] [place] [address] [place] Iron and Iron binding capaci ty panelon 03-12-2023 Iron [Mass/Vol] 31 ug/dL Low 41-186 [facility] Comment on above: Order Comment: Speci men Type: BLOOD SPECIMENOrdering Facility: [facility] Address: [address] [place] [address] Performed By: #### 2 276-4, 03826-6 ####[facility] LABCLIA [id number] [place] [address] [place] Iron binding capacity [Mass/Vol] 317 ug/dL Normal 232-386 [facility] Comment on above: Order Comment: Speci men Type: BLOOD SPECIMENOrdering Facility: [facility] Address: [address] [place] [address] Performed By: #### 2 276-4, 20053-9 ####[facility] LABCLIA [id number] [place] [address] [place] Iron/TIBC [Molar ratio] 9.8 % Low 15.0-57.0 [facility] Comment on above: Order Comment: Speci men Type: BLOOD SPECIMENOrdering Facility: [facility] Address: [address] [place] [address] Performed By: #### 2 276-4, 43438-3 ####[facility] LABCLIA [id number] [place] [id number] [place] CNPNon 02-04-2023 CNPN Telephone (HEMAWS) AINSLEY SORENSON ([id number]) 1935 F Date Time Provider Department 02/04/23 SARAH THORNE During your visit today, we recorded the following information about you: Sarah Thorne LISW 02/04/2023 2:12 PM Signed Pt noted on [facility] 1st time treatment report. Pt has a [...] Status:Closed by SARAH THORNE on 02/04/23 Normal [facility] CNOVSPon 01-25-2023 CNOVSP Visit (SP) Office (HEMAWS) AINSLEY SORENSON ([id number]) 1935 F Date Time Provider Department 01/25/23 [...] which included preparing to see the patient, [id number] patient care, completing clinical documentation, obtaining and/or reviewing separately obtained history, counseling and educating the patient/family/caregiv er, ordering medications, tests, or procedures, communicating with other HCPs (not separately reported), and communicating results to the patient/family/caregiv er. Electronically Signed: Stu Schaeffer MD January 25, 2023 1:08 PM Referring Provider: ZORAN DUMONT [[id number]] Allergies As of Date: 01/25/2023 Noted Allergy Reaction AUGMENTIN (AMOXICILLIN-POT CLAVUL*11/11/2012 6 - Diarrhea CIPROFLOXACIN 07/18/2010 2 - Rash LEVAQUIN (LEVOFLOXACIN) 04/24/2013 2 - Rash Comments: itching rash Date Reviewed: 01/25/2023 Reviewed by: Angel Bailey RN - Fully Assessed Reason for Visit: New Patient Evaluation [154] Visit Diagnosis:Iron deficiency anemia, unspecified iron deficiency anemia type [D50.9] Order(s):CONSULT TO HEMATOLOGY [9014] Order #: [id number]: 1 CBC + DIFF [SQCBCDIF] Order #: [id number] STANDING FERRITIN BLD [SQFERR] Order #: [id number] STANDING IRON + TIBC [SQIRON] Order #: [id number] STANDING Follow-up and Disposition History for Encounter Date Provider Department (more content not included)... [facility] CNPNon 01-06-2023 CNPN Telephone (MINNIE) AINSLEY SORENSON ([id number]) 1935 F Date Time Provider Department 01/06/23 [facility]U SCHAEFFER During your visit today, we recorded the following information about you: Ximena Odonnell 01/06/2023 1:25 PM Signed Please review and advise. CONSULT TO HEMATOLOGY Status: Needs Scheduling Requested appt date: Authorizing: Zoran Dumont PA-C in [facility] Referral: [id number] (Authorized) Expires: 01/04/2024 Priority: Routine Diagnosis: Iron [...] Status:Closed by JOHANNA CARLSON on 01/06/23 Normal [facility] FERRITIN BLDon 01-05-2023 Ferritin [Mass/Vol] 58.2 ng/mL 14.7 - 2 05.1 ng/mL [facility] Iron and Iron binding capaci ty panelon 01-05-2023 Iron [Mass/Vol] 20 ug/dL Low 41 - 186 ug/dL [facility] Iron binding capacity [Mass/Vol] 466 ug/dL High 232 - 386 ug/dL [facility] Iron/TIBC [Molar ratio] 4.3 % Low 15.0 - 57.0 % [facility] CBC W Auto Differential pane l (Bld)on 01-04-2023 Basophils (Bld) [#/Vol] 0.09 10*3/uL <0.11 k/uL [facility] Basophils/100 WBC (Bld) 1.1 % [facility] Differential cell count method Nom (Bld) Auto [facility] Eosinophils (Bld) [#/Vol] 0.09 10*3/uL <0.46 k/uL [facility] Eosinophils/100 WBC (Bld) 1.1 % [facility] Erythrocyte distribution width (RBC) [Ratio] 21.9 % High 11.5 - 15.0 % [facility] Hematocrit (Bld) [Volume fraction] 36.5 % 36.0 - 46.0 % [facility] Hemoglobin (Bld) [Mass/Vol] 9.9 g/dL Low 11.5 - 15.5 g/dL [facility] Immature granulocytes (Bld) [#/Vol] 0.04 10*3/uL <0.10 k/uL [facility] Immature granulocytes/100 WBC (Bld) 0.5 % [facility] Lymphocytes (Bld) [#/Vol] 1.48 10*3/uL 1.00 - 4.00 k/uL [facility] Lymphocytes/100 WBC (Bld) 17.4 % [facility] MCH (RBC) [Entitic mass] 21.3 pg Low 26.0 - 34.0 pg [facility] MCHC (RBC) [Mass/Vol] 27.1 g/dL Low 30.5 - 36.0 g/dL [facility] MCV (RBC) [Entitic vol] 78.5 fL Low 80.0 - 100.0 fL [facility] Monocytes (Bld) [#/Vol] 0.55 10*3/uL <0.87 k/uL [facility] Monocytes/100 WBC (Bld) 6.4 % [facility] Neutrophils (Bld) [#/Vol] 6.28 10*3/uL 1.45 - 7.50 k/uL [facility] Neutrophils/100 WBC (Bld) 73.5 % [facility] Nucleated RBC (Bld) [#/Vol] <0.01 k/uL [facility] Nucleated RBC/100 WBC (Bld) [Ratio] 0.0 /100 WBC [facility] Platelet mean volume (Bld) [Entitic vol] [facility] Platelets (Bld) [#/Vol] 211 10*3/uL 150 - 400 k/uL [facility] RBC (Bld) [#/Vol] 4.65 10*6/uL 3.90 - 5.2 0 m/uL [facility] WBC (Bld) [#/Vol] 8.53 10*3/uL 3.70 - 11. 00 k/uL [facility] Basophils (Bld) [#/Vol] 0.09 10*3/uL Normal <0.11 [facility] Comment on above: Order Comment: Speci men Type: BLOOD SPECIMENOrdering Facility: [facility] Address: [address] [place] [address] Performed By: #### 5 7021-8 ####[facility] LABCLIA [id number] [place] [address] [place] Basophils/100 WBC (Bld) 1.1 % Normal [facility] Comment on above: Order Comment: Speci men Type: BLOOD SPECIMENOrdering Facility: [facility] Address: [address] [place] [address] Performed By: #### 5 7021-8 ####[facility] LABCLIA [id number] [place] [address] [place] Differential cell count method Nom (Bld) Auto Normal [facility] Comment on above: Order Comment: Speci men Type: BLOOD SPECIMENOrdering Facility: [facility] Address: [address] [place] [address] Performed By: #### 5 7021-8 ####[facility] LABCLIA [id number] [place] [address] [place] Eosinophils (Bld) [#/Vol] 0.09 10*3/uL Normal <0.46 [facility] Comment on above: Order Comment: Speci men Type: BLOOD SPECIMENOrdering Facility: [facility] Address: [address] [place] [address] Performed By: #### 5 7021-8 ####[facility] LABCLIA [id number] [place] [address] [place] Eosinophils/100 WBC (Bld) 1.1 % Normal [facility] Comment on above: Order Comment: Speci men Type: BLOOD SPECIMENOrdering Facility: [facility] Address: [address] [place] [address] Performed By: #### 5 7021-8 ####[facility] LABCLIA [id number] [place] [address] [place] Erythrocyte distribution width (RBC) [Ratio] 21.9 % High 11.5-15.0 [facility] Comment on above: Order Comment: Speci men Type: BLOOD SPECIMENOrdering Facility: [facility] Address: [address] [place] [address] Performed By: #### 5 7021-8 ####[facility] LABCLIA [id number] [place] [address] [place] Hematocrit (Bld) [Volume fraction] 36.5 % Normal 36.0-46.0 [facility] Comment on above: Order Comment: Speci men Type: BLOOD SPECIMENOrdering Facility: [facility] Address: [address] [place] [address] Performed By: #### 5 7021-8 ####[facility] LABCLIA [id number] [place] [address] [place] Hemoglobin (Bld) [Mass/Vol] 9.9 g/dL Low 11.5-15.5 [facility] Comment on above: Order Comment: Speci men Type: BLOOD SPECIMENOrdering Facility: [facility] Address: [address] [place] [address] Performed By: #### 5 7021-8 ####[facility] LABIA [id number] [place] [address] [place] Immature granulocytes (Bld) [#/Vol] 0.04 10*3/uL Normal <0.10 [facility] Comment on above: Order Comment: Speci men Type: BLOOD SPECIMENOrdering Facility: [facility] Address: [address] [place] [address] Performed By: #### 5 7021-8 ####[facility] LABCLIA [id number] [place] [address] [place] Immature granulocytes/100 WBC (Bld) 0.5 % Normal [facility] Comment on above: Order Comment: Speci men Type: BLOOD SPECIMENOrdering Facility: [facility] Address: [address] [place] [address] Performed By: #### 5 7021-8 ####[facility] LABCLIA [id number] [place] [address] [place] Lymphocytes (Bld) [#/Vol] 1.48 10*3/uL Normal 1.00-4.00 [facility] Comment on above: Order Comment: Speci men Type: BLOOD SPECIMENOrdering Facility: [facility] Address: [address] [place] [address] Performed By: #### 5 7021-8 ####[facility] LABCLIA [id number] [place] [address] [place] Lymphocytes/100 WBC (Bld) 17.4 % Normal [facility] Comment on above: Order Comment: Speci men Type: BLOOD SPECIMENOrdering Facility: [facility] Address: [address] [place] [address] Performed By: #### 5 7021-8 ####[facility] LABIA [id number] [place] [address] [place] MCH (RBC) [Entitic mass] 21.3 pg Low 26.0-34.0 [facility] Comment on above: Order Comment: Speci men Type: BLOOD SPECIMENOrdering Facility: [facility] Address: [address] [place] [address] Performed By: #### 5 7021-8 ####[facility] LABIA [id number] [place] [address] [place] MCHC (RBC) [Mass/Vol] 27.1 g/dL Low 30.5-36.0 [facility] Comment on above: Order Comment: Speci men Type: BLOOD SPECIMENOrdering Facility: [facility] Address: [address] [place] [address] Performed By: #### 5 7021-8 ####[facility] LABIA [id number] [place] [address] [place] MCV (RBC) [Entitic vol] 78.5 fL Low 80.0-100.0 [facility] Comment on above: Order Comment: Speci men Type: BLOOD SPECIMENOrdering Facility: [facility] Address: [address] [place] [address] Performed By: #### 5 7021-8 ####[facility] LABCLIA [id number] [place] [address] [place] Monocytes (Bld) [#/Vol] 0.55 10*3/uL Normal <0.87 [facility] Comment on above: Order Comment: Speci men Type: BLOOD SPECIMENOrdering Facility: [facility] Address: [address] [place] [address] Performed By: #### 5 7021-8 ####[facility] LABCLIA [id number] [place] [address] [place] Monocytes/100 WBC (Bld) 6.4 % Normal [facility] Comment on above: Order Comment: Speci men Type: BLOOD SPECIMENOrdering Facility: [facility] Address: [address] [place] [address] Performed By: #### 5 7021-8 ####[facility] LABCLIA [id number] [place] [address] [place] Neutrophils (Bld) [#/Vol] 6.28 10*3/uL Normal 1.45-7.50 [facility] Comment on above: Order Comment: Speci men Type: BLOOD SPECIMENOrdering Facility: [facility] Address: [address] [place] [address] Performed By: #### 5 7021-8 ####[facility] LABCLIA [id number] [place] [address] [place] Neutrophils/100 WBC (Bld) 73.5 % Normal [facility] Comment on above: Order Comment: Speci men Type: BLOOD SPECIMENOrdering Facility: [facility] Address: [address] [place] [address] Performed By: #### 5 7021-8 ####[facility] LABCLIA [id number] [place] [address] [place] Nucleated RBC (Bld) [#/Vol] 10*3/uL Normal <0.01 [facility] Comment on above: Order Comment: Speci men Type: BLOOD SPECIMENOrdering Facility: [facility] Address: [address] [place] [address] Performed By: #### 5 7021-8 ####[facility] LABCLIA [id number] [place] [address] [place] Nucleated RBC/100 WBC (Bld) [Ratio] 0.0 /100 WBC Normal [facility] Comment on above: Order Comment: Speci men Type: BLOOD SPECIMENOrdering Facility: [facility] Address: [address] [place] [address] Performed By: #### 5 7021-8 ####[facility] LABIA [id number] [place] [address] [place] Platelet mean volume (Bld) [Entitic vol] Normal [facility] Comment on above: Order Comment: Speci men Type: BLOOD SPECIMENOrdering Facility: [facility] Address: [address] [place] [address] Result Comment: Unab le to Report. Performed By: #### 5 7021-8 ####[facility] LABIA [id number] [place] [address] [place] Platelets (Bld) [#/Vol] 211 10*3/uL Normal 150-400 [facility] Comment on above: Order Comment: Speci men Type: BLOOD SPECIMENOrdering Facility: [facility] Address: [address] [place] [address] Result Comment: Resu lts checked and verified.No clot detected. Performed By: #### 5 7021-8 ####[facility] LABCLIA [id number] [place] [address] [place] RBC (Bld) [#/Vol] 4.65 10*6/uL Normal 3.90-5.20 [facility] Comment on above: Order Comment: Speci men Type: BLOOD SPECIMENOrdering Facility: [facility] Address: [place] [address] Performed By: #### 5 7021-8 ####[facility] LABIA [id number] [place] [address] [place] WBC (Bld) [#/Vol] 8.53 10*3/uL Normal 3.70-11.00 [facility] Comment on above: Order Comment: Speci men Type: BLOOD SPECIMENOrdering Facility: [facility] Address: [place] [address] Performed By: #### 5 7021-8 ####[facility] LABCLIA [id number] [place] [address] [place] CNOVon 01-04-2023 CNOV Office Visit (INTMWS ) AINSLEY SORENSON ([id number]) 1935 F Date Time Provider Department 01/04/23 [...] her appts, [place] and states it's a lot every time [...] focal neurologic (more content not included)... Normal [facility] Angelo 01-04-2023 [facility] Telephone (FAMPWS) AINSLEY SORENSON ([id number]) 1935 F Date Time Provider Department 01/04/23 [...] appt date: Authorizing: Zoran Dumont PA-C in [facility] Referral: [id number] (Authorized) Expires: 01/04/2024 Priority: Routine Diagnosis: Iron deficiency anemia, unspecified iron deficiency anemia type [D50.9] Comments Alexandra Michel RN 01/04/2023 4:31 PM Signed OK to schedule with first available. KEYONNA Bull Stephanie 01/05/2023 8:52 AM Signed LM for a return call. When she calls, please schedule first available FR[employer]ANCHER re: anemia that works for the patient. [...] Status:Closed by MARYJANE VINES on 01/07/23 Normal [facility] Ferritin SerPl-mCncon 2022 Ferritin [Mass/Vol] 58.2 ng/mL Normal 14.7-205.1 [facility] Comment on above: Order Comment: Speci men Type: BLOOD SPECIMENOrdering Facility: [facility] Address: [address] [place] [address] Performed By: #### 5 0190-8, 6-4 ####[facility] LABCLIA [id number] [place] [address] [place] Iron and Iron binding capaci ty panelon 01-04-2023 Iron [Mass/Vol] 20 ug/dL Low 41-186 [facility] Comment on above: Order Comment: Speci men Type: BLOOD SPECIMENOrdering Facility: [facility] Address: [address] [place] [address] Performed By: #### 5 0190-8, 2275-4 ####[facility] LABCLIA [id number] [place] [address] [place] Iron binding capacity [Mass/Vol] 466 ug/dL High 232-386 [facility] Comment on above: Order Comment: Speci men Type: BLOOD SPECIMENOrdering Facility: [facility] Address: [address] [place] [address] Performed By: #### 5 0190-8, 2275-06 ####[facility] LABCLIA [id number] [place] [address] [place] Iron/TIBC [Molar ratio] 4.3 % Low 15.0-57.0 [facility] Comment on above: Order Comment: Speci men Type: BLOOD SPECIMENOrdering Facility: [facility] Address: [address] [place] [address] Performed By: #### 5 0190-8, 2275- ####[facility] LABCLIA [id number] [place] [address] [place] CBC W Auto Differential pane l (Bld)on 11-13-2022 Basophils (Bld) [#/Vol] 0.05 10*3/uL <0.11 k/uL [facility] Basophils/100 WBC (Bld) 0.5 % [facility] Differential cell count method Nom (Bld) Auto [facility] Eosinophils (Bld) [#/Vol] <0.46 k/uL [facility] Eosinophils/100 WBC (Bld) 0.1 % [facility] Erythrocyte distribution width (RBC) [Ratio] 24.2 % High 11.5 - 15.0 % [facility] Hematocrit (Bld) [Volume fraction] 31.8 % Low 36.0 - 46.0 % [facility] Hemoglobin (Bld) [Mass/Vol] 9.0 g/dL Low 11.5 - 15.5 g/dL [facility] Immature granulocytes (Bld) [#/Vol] 0.05 10*3/uL <0.10 k/uL [facility] Immature granulocytes/100 WBC (Bld) 0.5 % [facility] Lymphocytes (Bld) [#/Vol] 0.81 10*3/uL Low 1.00 - 4.00 k/uL [facility] Lymphocytes/100 WBC (Bld) 7.9 % [facility] MCH (RBC) [Entitic mass] 19.7 pg Low 26.0 - 34.0 pg [facility] MCHC (RBC) [Mass/Vol] 28.3 g/dL Low 30.5 - 36.0 g/dL [facility] MCV (RBC) [Entitic vol] 69.6 fL Low 80.0 - 100.0 fL [facility] Monocytes (Bld) [#/Vol] 0.88 10*3/uL High <0.87 k/uL [facility] Monocytes/100 WBC (Bld) 8.6 % [facility] Neutrophils (Bld) [#/Vol] 8.40 10*3/uL High 1.45 - 7.50 k/uL [facility] Neutrophils/100 WBC (Bld) 82.4 % [facility] Nucleated RBC (Bld) [#/Vol] <0.01 k/uL [facility] Nucleated RBC/100 WBC (Bld) [Ratio] 0.0 /100 WBC [facility] Platelet mean volume (Bld) [Entitic vol] [facility] Platelets (Bld) [#/Vol] 172 10*3/uL 150 - 400 k/uL [facility] RBC (Bld) [#/Vol] 4.57 10*6/uL 3.90 - 5.2 0 m/uL [facility] WBC (Bld) [#/Vol] 10.20 10*3/uL 3.70 - 11 .00 k/uL [facility] XR Radius and Ulna - right A P and Lateralon 05-16-2021 IMPRESSION: No acute fractures demonstrated in the right radius or right ulna. There is mild soft tissue prominence in the mid forearm. Set Up / Operator: [facility] Transcribe Date/Time: May 16 2021 1:42P Dictated by : MEHREEN AYERS MD This examination was interpreted and the report reviewed and electronically signed by: MEHREEN AYERS MD on May 16 2021 1:45PM [facility] DIVISION OF RADIOLOGY * * [...] presented. FINDINGS AND DIVISION OF RADIOLOGY Provider, [facility] - 05/16/2021 * * *Final Report* * [...] soft tissue prominence in the mid forearm. Set Up / Operator: [employer] Transcribe Date/Time: May 16 2021 1:42P Dictated by : MEHREEN AYERS MD This examination was interpreted and the report reviewed and electronically signed by: MEHREEN AYERS MD on May 16 2021 1:45PM EST [facility] Radiology Study observation (narrative) [facility] XR Radius and Ulna - right A P and LateralOrdered By: Ccf Provider on 05-16-2021 [facility] Vital Signs Date Time Vital Sign Value Performing Clinician Faci lity 12-10-2023 13:59-0400 Body mass index (BMI) [Ratio] 17.35 kg/m2 Shonda Older [employer] Work Phone: [facility] 12-10-2023 13:59-0400 Body weight 47.3 kg Shonda Older [employer] Work Phone: [facility] 12-10-2023 13:59-0400 Diastolic blood pressure 74 mm[Hg] Shonda Older [employer] Work Phone: [facility] 12-10-2023 13:59-0400 Heart rate 68 /min Shonda Older [employer] Work Phone: [facility] 12-10-2023 13:59-0400 SaO2% (BldA) [Mass fraction] 100 % Shonda Older [employer] Work Phone: [facility] 12-10-2023 13:59-0400 Systolic blood pressure 128 mm[Hg] Shonda Older [employer] Work Phone: [facility] 08-13-2023 13:31-0400 Body mass index (BMI) [Ratio] 18.6 kg/m2 Shonda Older [employer] Work Phone: [facility] 08-13-2023 13:31-0400 Body weight 50.71 kg Shonda Older [employer] Work Phone: [facility] 08-13-2023 13:31-0400 Diastolic blood pressure 66 mm[Hg] Shonda Older [employer] Work Phone: [facility] 08-13-2023 13:31-0400 Heart rate 85 /min Shonda Older [employer] Work Phone: [facility] 08-13-2023 13:31-0400 SaO2% (BldA) [Mass fraction] 96 % Shonda Older [employer] Work Phone: [facility] 08-13-2023 13:31-0400 Systolic blood pressure 122 mm[Hg] Shonda Older [employer] Work Phone: [facility] 04-26-2023 13:13-0500 Body weight 48.99 kg Shonda Older [employer] Work Phone: [facility] 04-26-2023 13:13-0500 Diastolic blood pressure 70 mm[Hg] Shonda Older [employer] Work Phone: [facility] 04-26-2023 13:13-0500 Heart rate 72 /min Shonda Older [employer] Work Phone: [facility] 04-26-2023 13:13-0500 Respiratory rate 16 /min Shonda Older [employer] Work Phone: [facility] 04-26-2023 13:13-0500 Systolic blood pressure 128 mm[Hg] Shonda Older D[employer]MER[employer] Work Phone: [facility] 02-26-2023 13:00-0500 Body temperature 97.59 [degF] Treatment Wstr Work Phone: [facility] 02-26-2023 13:00-0500 Diastolic blood pressure 70 mm[Hg] Treatment Wstr Work Phone: [facility] 02-26-2023 13:00-0500 Heart rate 81 /min Treatment Wstr Work Phone: [facility] 02-26-2023 13:00-0500 Systolic blood pressure 137 mm[Hg] Treatment Wstr Work Phone: [facility] 02-05-2023 13:33-0500 Body temperature 97.39 [degF] Treatment Wstr Work Phone: [facility] 02-05-2023 13:33-0500 Diastolic blood pressure 81 mm[Hg] Treatment Wstr Work Phone: [facility] 02-05-2023 13:33-0500 Heart rate 85 /min Treatment Wstr Work Phone: [facility] 02-05-2023 13:33-0500 Respiratory rate 18 /min Treatment Wstr Work Phone: [facility] 02-05-2023 13:33-0500 SaO2% (BldA) [Mass fraction] 97 % Treatment Wstr Work Phone: [facility] 02-05-2023 13:33-0500 Systolic blood pressure 118 mm[Hg] Treatment Wstr Work Phone: [facility] 01-25-2023 12:52-0500 Body height 165.1 cm Stu Schaeffer MD Work Phone: [facility] 01-25-2023 12:52-0500 Body temperature 97.9 [degF] Stu Schaeffer MD Work Phone: [facility] 01-25-2023 12:52-0500 Body weight 49.44 kg Stu Schaeffer MD Work Phone: [facility] 01-25-2023 12:52-0500 Diastolic blood pressure 74 mm[Hg] Stu Schaeffer MD Work Phone: [facility] 01-25-2023 12:52-0500 Heart rate 67 /min Stu Schaeffer MD Work Phone: [facility] 01-25-2023 12:52-0500 SaO2% (BldA) [Mass fraction] 99 % Stu Schaeffer MD Work Phone: [facility] 01-25-2023 12:52-0500 Systolic blood pressure 165 mm[Hg] Stu Schaeffer MD Work Phone: [facility] 01-04-2023 12:16-0400 Body height 167.6 cm Zoran Dumont PA-C Work Phone: [facility] 01-04-2023 12:16-0400 Body temperature 97.2 [degF] Zoran Denbow PA-C Work Phone: [facility] 01-04-2023 12:16-0400 Body weight 46.27 kg Zoran Denbow PA-C Work Phone: [facility] 01-04-2023 12:16-0400 Diastolic blood pressure 52 mm[Hg] Zoran Denbow PA-C Work Phone: [facility] 01-04-2023 12:16-0400 Heart rate 80 /min Zoran Denbow PA-C Work Phone: [facility] 01-04-2023 12:16-0400 Respiratory rate 12 /min Zoran Denbow PA-C Work Phone: [facility] 01-04-2023 12:16-0400 SaO2% (BldA) [Mass fraction] 100 % Zoran Denbow PA-C Work Phone: [facility] 01-04-2023 12:16-0400 Systolic blood pressure 102 mm[Hg] Zoran Denbow PA-C Work Phone: [facility] 11-13-2022 12:52-0400 Body height 167.6 cm Zoran Denbow PA-C Work Phone: [facility] 11-13-2022 12:52-0400 Body temperature 98.01 [degF] Zoran Denbow PA-C Work Phone: [facility] 11-13-2022 12:52-0400 Body weight 44.91 kg Zoran Denbow PA-C Work Phone: [facility] 11-13-2022 12:52-0400 Diastolic blood pressure 70 mm[Hg] Zoran Denbow PA-C Work Phone: [facility] 11-13-2022 12:52-0400 Heart rate 84 /min Zoran Denbow PA-C Work Phone: [facility] 11-13-2022 12:52-0400 Respiratory rate 12 /min Zoran Denbow PA-C Work Phone: [facility] 11-13-2022 12:52-0400 SaO2% (BldA) [Mass fraction] 98 % Zoran VALENTE-Immanuel Work Phone: [facility] 11-13-2022 12:52-0400 Systolic blood pressure 140 mm[Hg] Zoran Dumont PA-C Work Phone: [facility] 08-21-2022 14:20-0400 Body temperature 98.8 [degF] Shonda Older DIE TRIMMER.[employer] Work Phone: [facility] 08-21-2022 14:20-0400 Body weight 45.36 kg Shonda Older DIE TRIMMER.[employer]ACH[employer] Work Phone: [facility] 08-21-2022 14:20-0400 Diastolic blood pressure 52 mm[Hg] Shonda Older DIE TRIMMER.[employer]ACHINE [employer] Work Phone: [facility] 08-21-2022 14:20-0400 Heart rate 72 /min Shonda Older DIE TRIMMER.[employer] Work Phone: [facility] 08-21-2022 14:20-0400 Respiratory rate 16 /min Shonda Older DIE TRIMMER.[employer]GING MACHINE [employer] Work Phone: [facility] 08-21-2022 14:20-0400 SaO2% (BldA) [Mass fraction] 99 % Shonda Older DIE TRIMMER.[employer]ACHINE [employer] Work Phone: [facility] 08-21-2022 14:20-0400 Systolic blood pressure 132 mm[Hg] Shonda Older DIE TRIMMER.[employer]ACHINE [employer] Work Phone: [facility] 05-29-2022 16:22-0500 Body height 167.6 cm Ming Mcknight MD Work Phone: [facility] 05-29-2022 16:22-0500 Body temperature 97.39 [degF] Ming Mcknight MD Work Phone: [facility] 05-29-2022 16:22-0500 Body weight 46.72 kg Ming Mcknight MD Work Phone: [facility] 05-29-2022 16:22-0500 Diastolic blood pressure 42 mm[Hg] Ming Mcknight MD Work Phone: [facility] 05-29-2022 16:22-0500 Heart rate 83 /min Ming Mcknight MD Work Phone: [facility] 05-29-2022 16:22-0500 Respiratory rate 12 /min Ming Mcknight MD Work Phone: [facility] 05-29-2022 16:22-0500 SaO2% (BldA) [Mass fraction] 99 % Ming Mcknight MD Work Phone: [facility] 05-29-2022 16:22-0500 Systolic blood pressure 98 mm[Hg] Ming Mcknight MD Work Phone: [facility] 01-30-2022 10:54-0500 Body weight 45.36 kg Mindy Mancia MD Work Phone: [facility] 01-30-2022 10:54-0500 Diastolic blood pressure 56 mm[Hg] Mindy Mancia MD Work Phone: [facility] 01-30-2022 10:54-0500 Systolic blood pressure 94 mm[Hg] Mindy Mancia MD Work Phone: [facility] 01-23-2022 14:24-0400 Body weight 45.81 kg Shonda Older DIE TRIMMER.[employer] Work Phone: [facility] 01-23-2022 14:24-0400 Diastolic blood pressure 68 mm[Hg] Shonda Older DIE TRIMMER.[employer]ACHINE [employer] Work Phone: [facility] 01-23-2022 14:24-0400 Heart rate 64 /min Shonda Older DIE TRIMMER.[employer] Work Phone: [facility] 01-23-2022 14:24-0400 Respiratory rate 16 /min Shonda Older DIE TRIMMER.[employer]ACHINE [employer] Work Phone: [facility] 01-23-2022 14:24-0400 Systolic blood pressure 118 mm[Hg] Shonda Older DIE TRIMMER.[employer]ACH[employer] Work Phone: [facility] 11-28-2021 16:10-0400 Body height 167.6 cm Ming Mcknight MD Work Phone: [facility] 11-28-2021 16:10-0400 Body temperature 98.71 [degF] Ming Mcknight MD Work Phone: [facility] 11-28-2021 16:10-0400 Body weight 47.17 kg Ming Mcknight MD Work Phone: [facility] 11-28-2021 16:10-0400 Diastolic blood pressure 70 mm[Hg] Ming Mcknight MD Work Phone: [facility] 11-28-2021 16:10-0400 Heart rate 74 /min Ming Mcknight MD Work Phone: [facility] 11-28-2021 16:10-0400 Respiratory rate 12 /min Ming Mcknight MD Work Phone: [facility] 11-28-2021 16:10-0400 SaO2% (BldA) [Mass fraction] 96 % Ming Mcknight MD Work Phone: [facility] 11-28-2021 16:10-0400 Systolic blood pressure 120 mm[Hg] Ming Mcknight MD Work Phone: [facility] 11-26-2021 18:01-0400 Body temperature 97.39 [degF] Neela Athy PA-C Work Phone: [facility] 11-26-2021 18:01-0400 Body weight 48.08 kg Neela Athy PA-C Work Phone: [facility] 11-26-2021 18:01-0400 Diastolic blood pressure 90 mm[Hg] Neela Athy PA-C Work Phone: [facility] 11-26-2021 18:01-0400 Heart rate 82 /min Neela Athy PA-C Work Phone: [facility] 11-26-2021 18:01-0400 Respiratory rate 21 /min Neela Athy PA-C Work Phone: [facility] 11-26-2021 18:01-0400 SaO2% (BldA) [Mass fraction] 98 % Neela Oneill PA-C Work Phone: [facility] 11-26-2021 18:01-0400 Systolic blood pressure 180 mm[Hg] Neela Oneill PA-C Work Phone: [facility] 07-25-2021 15:37-0400 Body weight 43.55 kg Mindy Mancia MD Work Phone: [facility] 07-25-2021 15:37-0400 Diastolic blood pressure 62 mm[Hg] Mindy Mancia MD Work Phone: [facility] 07-25-2021 15:37-0400 Systolic blood pressure 110 mm[Hg] Mindy Mancia MD Work Phone: [facility] Encounters Encounter Date Encounter Type Care Provider Facility Start: 12-24-2023 End: 12-24-2023 Telephone encounter Ming Mcknight MD Work Phone: [facility] Comment on above: Results Start: 12-17-2023 End: 12-17-2023 ambulatory MING MCKNIGHT Facility:[facility] Start: 12-14-2023 End: 12-14-2023 Telephone encounter Ming Mcknight MD Work Phone: [facility] [place] Comment on above: Patient Update Start: 12-13-2023 End: 12-13-2023 Telephone encounter Shonda Tyler APRN.FORGING MACHINE [employer] Work Phone: [facility] Comment on above: Results Start: 12-10-2023 End: 12-10-2023 ambulatory SHONDA TYLER Facility:[facility] Start: 12-10-2023 End: 12-10-2023 Patient encounter procedure Shonda Tyler APRN.[employer]ACHINE [employer] Work Phone: [facility] Comment on above: Unsteady gait (Prima ry Dx); Tremor of both hands; 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); Hypothyroidism, unspecified type; Hypertensive kidney disease with stage 3a chronic kidney disease (HCC); Stage 3a chronic kidney disease (HCC) Start: 10-04-2023 Refill Ming Berger Work Phone: [facility] [place] Comment on above: Refill Request Start: 09-24-2023 Telephone encounter Krystal Cobb DIE TRIMMER.FORGING MACHINE [employer] Work Phone: [facility] Comment on above: Results Start: 09-22-2023 Telephone encounter Shonda Older DIE TRIMMER.[employer] MACHINE [employer] Work Phone: [facility] [place] Start: 09-21-2023 End: 09-21-2023 [facility] Facility:[facility] Start: 08-18-2023 Telephone encounter Shonda Older DIE TRIMMER.[employer]ACHINE [employer] Work Phone: [facility] [place] Comment on above: Results Start: 08-13-2023 End: 08-13-2023 Patient encounter procedure Shonda Older DIE TRIMMER.[employer]ACHINE [employer] Work Phone: [facility] [place] Comment on above: Recent urinary tract infection (Primary Dx); Leukocytes in urine; 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); Diarrhea, unspecified type Refill Request Start: 08-13-2023 End: 08-13-2023 [facility] Facility:[facility] Start: 06-09-2023 Refill Shonda Older DIE TRIMMER .[employer]ACHINE [employer] Work Phone: [facility] [place] Comment on above: Refill Request Start: 04-29-2023 Telephone encounter Shonda Older DIE TRIMMER.[employer] MACHINE [employer] Work Phone: [facility] [place] Comment on above: Results Start: 04-26-2023 End: 04-26-2023 [facility] Facility:[facility] Start: 04-26-2023 End: 04-26-2023 Patient encounter procedure Shonda Older DIE TRIMMER.[employer]ACHINE [employer] Work Phone: [facility] [place] Comment on above: Late onset Alzheimer '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) (Primary Dx); Memory change; Hypothyroidism, unspecified type; Major depressive disorder with single episode, in full remission (HCC); Chronic anxiety; Stage 3a chronic kidney disease (HCC); Diarrhea, unspecified type Start: 03-12-2023 End: 03-12-2023 ambulatory STU SCHAEFFER Facility:[facility] Start: 02-26-2023 End: 02-26-2023 ambulatory Treatment Rm 13 [facility] Work Phone: Hematology/Oncology Comment on above: Other iron deficienc y anemia (Primary Dx); Iron deficiency anemia, unspecified iron deficiency anemia type Start: 02-19-2023 End: 02-19-2023 ambulatory STU SCHAEFFER Facility:[facility] Start: 02-05-2023 End: 02-05-2023 ambulatory Treatment Rm 13 [facility] Work Phone: Hematology/Oncology Comment on above: Iron deficiency anem ia, unspecified iron deficiency anemia type (Primary Dx) Start: 02-04-2023 Telephone encounter Sarah VALDOVINOS Hematology/Oncology Comment on above: 1st Time Treatment ( Non-Oncology) Start: 01-25-2023 End: 01-25-2023 Patient encounter procedure Stu Schaeffer MD Work Phone: [facility] Start: 01-25-2023 End: 01-25-2023 ambulatory Treatment Rm 10 [facility] Work Phone: Hematology/Oncology Comment on above: Iron deficiency anem ia, unspecified iron deficiency anemia type (Primary Dx) Iron deficiency anem ia, unspecified iron deficiency anemia type Start: 01-04-2023 Telephone encounter Ming hahn MD Work Phone: [facility] [place] Comment on above: Orders Start: 01-04-2023 End: 01-04-2023 ambulatory ZORAN DUMONT Facility:[facility] Start: 01-04-2023 End: 01-04-2023 ambulatory ZORAN DUMONT Facility:[facility] Start: 01-04-2023 End: 01-04-2023 Patient encounter procedure Zoran Dumont PA-C Work Phone: [facility] [place] Comment on above: Iron deficiency anem ia, unspecified iron deficiency anemia type (Primary Dx); 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); Gout with manifestations; Need for influenza vaccination Start: 11-17-2022 Telephone encounter Mnig hahn MD Work Phone: [facility] [place] Comment on above: Results Start: 11-13-2022 End: 11-13-2022 Patient encounter procedure Zoran Dumont PA-C Work Phone: [facility] [place] Comment on above: Microcytic anemia (P rimary Dx); History of recent blood transfusion; Acute confusion Start: 11-10-2022 Telephone encounter Rainer roberts MD Work Phone: [facility] [place] Comment on above: Results (Critical Hg b.) Start: 08-21-2022 End: 08-21-2022 Patient encounter procedure Shonda Tyler APRN.[employer]GING MACHINE [employer] Work Phone: [facility] [place] Comment on above: Essential hypertensi on, benign (Primary Dx); Major depressive disorder with single episode, in full remission (HCC); Chronic anxiety; Anemia, unspecified type; Hypothyroidism, unspecified type Start: 06-05-2022 Refill Ming Berger Work Phone: [facility] [place] Comment on above: Refill Request Start: 05-29-2022 End: 05-29-2022 Patient encounter procedure Ming Mcknight MD Work Phone: [facility] [place] Comment on above: Anemia, unspecified type (Primary Dx); Major depressive disorder with single episode, in full remission (HCC); Chronic anxiety; Hypothyroidism, unspecified type; Essential hypertension, benign Start: 05-03-2022 Refill Shonda Tyler APRN .[employer]ACHINE [employer] Work Phone: [facility] [place] Comment on above: Refill Request Start: 02-10-2022 Telephone encounter Ming hahn MD Work Phone: [facility] [place] Comment on above: stool results Start: 02-09-2022 Refill Ming Berger Work Phone: [facility] Comment on above: Refill Request Start: 01-30-2022 End: 01-30-2022 Patient encounter procedure Mindy Mancia MD Work Phone: OB/Gynecology Comment on above: Pessary maintenance (Primary Dx); Incomplete uterovaginal prolapse Start: 01-29-2022 Telephone encounter Mindy Mancia MD Work Phone: OB/Gynecology Comment on above: Patient Update Start: 01-28-2022 Telephone encounter Shonda Jayson PHILLIPS.FORGING MACHINE HAND Work Phone: [facility] [place] Comment on above: Results Start: 01-26-2022 Telephone encounter Shonda Jayson PHILLIPS.FORGING MACHINE HAND Work Phone: [facility] [place] Comment on above: Results Start: 01-23-2022 End: 01-23-2022 Patient encounter procedure Shonda Tyler APRN.FORGING MACHINE HAND Work Phone: [facility] [place] Comment on above: Anemia, unspecified type (Primary Dx); Prediabetes; Major depressive disorder with single episode, in full remission (HCC); Chronic anxiety; 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) Start: 01-12-2022 Telephone encounter Ming hahn MD Work Phone: [facility] [place] Comment on above: Refill Request Start: 01-02-2022 Telephone encounter Ming hahn MD Work Phone: [facility] [place] Comment on above: Patient Update Start: 12-05-2021 Telephone encounter Ming hahn MD Work Phone: [facility] [place] Comment on above: Results Start: 11-28-2021 End: 11-28-2021 Patient encounter procedure Ming Mcknight MD Work Phone: [facility] [place] Comment on above: Vitamin B12 deficien cy (Primary Dx); Gout with manifestations; Vitamin D deficiency; Hypothyroidism, unspecified type; Essential hypertension, benign; Encounter for screening for diabetes mellitus; Elevated glucose Start: 11-26-2021 End: 11-26-2021 Patient encounter procedure Neela Oneill PA-C Work Phone: [facility] Comment on above: Skin infection (Prim ching Dx) Start: 11-11-2021 ambulatory Ming Berger Work Phone: [facility] [place] Start: 10-20-2021 Refill Ming Berger Work Phone: [facility] [place] Comment on above: Refill Request Start: 07-25-2021 End: 07-25-2021 Patient encounter procedure Mindy Mancia MD Work Phone: OB/Gynecology Comment on above: Uterovaginal prolaps e, complete (Primary Dx); Encounter for pessary maintenance Start: 07-05-2021 Refill Ming Berger Work Phone: [facility] [place] Comment on above: Refill Request Start: 05-16-2021 End: 05-16-2021 Subsequent hospital visit by physician Xr [facility] Work Phone: Radiology Comment on above: Injury of right fore arm, initial encounter [H48.567K] Procedures Date Procedure Procedure Detail Performing Clinician Start: 08-13-2023 Urnls dip stick/tabl et rgnt auto w/o microscopy Shonda Tyler DIE TRIMMER.[employer]ACHINE [employer] Work Phone: Start: 01-04-2023 INFLUENZA VACCINE, P RSV FREE, AGE 65+ YR, HIGH DOSE, QUADRIVALENT (FLUZONE HIGH-DOSE) Zoran Dumont PA-C Work Phone: Start: 05-16-2021 Radex forearm 2 views T perla Valerio DIE TRIMMER.FORGING MACHINE [employer] Work Phone: Plan of Treatment Date Care Activity Detail Author Start: 09-02-2030 Urine microalbumin profile [facility] Start: 12-09-2026 Diabetes Screening Diabetes Screenin g [facility] Start: 04-26-2026 Diabetes Screening Diabetes Screenin g [facility] Start: 11-09-2025 DIABETES SCREEN DIABETES SCREEN [facility] Start: 11-09-2025 Diabetes Screening Diabetes Screenin g [facility] Start: 05-08-2025 DIABETES SCREEN DIABETES SCREEN [facility] Start: 12-09-2024 Covid-19 Vaccine () Covid-19 Vaccine () [facility] Comment on above: Postponed from 11/20 (Declined at this time) Start: 12-09-2024 Covid-19 Vaccine () Covid-19 Vaccine () [facility] Comment on above: Postponed from 11/20 (Declined at this time) Start: 11-28-2024 DIABETES SCREEN DIABETES SCREEN [facility] Start: 08-12-2024 Covid-19 Vaccine () Covid-19 Vaccine () [facility] Comment on above: Postponed from 11/20 (Declined at this time) Start: 08-12-2024 RSV Vaccine (1 - 1-d ose 60+ series) RSV Vaccine (1 - 1-dose 60+ series) [facility] Comment on above: Postponed from 10/18 (Declined at this time) Start: 08-12-2024 RSV Vaccine (1 - 1-d ose 75+ series) RSV Vaccine (1 - 1-dose 75+ series) [facility] Comment on above: Postponed from 10/18 (Declined at this time) Start: 08-12-2024 Shingrix Vaccine (1 of 2) Smith grix Vaccine (1 of 2) [facility] Comment on above: Postponed from 10/18 (Declined at this time) Start: 01-12-2024 End: 01-12-2024 Patient encounter procedure 01/12/2024 1:30 PM EDT Office Visit Ger[facility] [address] [place], [place] [id number] Ming Mcknight MD [address], [place] [address] 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 [facility]iatric[facility] Comment on above: Late onset Alzheimer '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) [G30.1, F02.... Start: 12-14-2023 End: 03-14-2024 CBC W Auto Differential panel - Blood COMPLETE BLOOD COUNT AND DIFFERENTIAL Lab Routine Anemia, unspecified type Expected: 12/14/2023, Expires: 03/14/2024 [facility] Work Phone: Comment on above: Expected: 12/14/2023 , Expires: 03/14/2024 Start: 12-10-2023 End: 03-10-2024 CBC W Auto Differential panel - Blood [facility] Work Phone: Comment on above: Expected: 12/10/2023 , Expires: 03/10/2024 Start: 12-10-2023 End: 03-10-2024 Comprehensive metabolic 2000 panel - Serum or Plasma [facility] Comment on above: Expected: 12/10/2023 , Expires: 03/10/2024 Start: 12-10-2023 End: 03-10-2024 Thyrotropin [Units/volume] in Serum or Plasma [facility] Comment on above: Expected: 12/10/2023 , Expires: 03/10/2024 Start: 12-10-2023 End: 03-10-2024 Thyroxine (T4) free [Mass/volume] in Serum or Plasma [facility] Comment on above: Expected: 12/10/2023 , Expires: 03/10/2024 Start: 12-10-2023 End: 03-10-2024 Triiodothyronine (T3) Free [Mass/volume] in Serum or Plasma [facility] Comment on above: Expected: 12/10/2023 , Expires: 03/10/2024 Start: 11-15-2023 End: 11-15-2023 Patient encounter procedure 11/15/2023 2:20 PM EDT Office Visit [facility] [address] [place] [address] Ming Mcknight MD [address] [place] [address] 3 month follow up [facility] Comment on above: 3 month follow up Start: 09-01-2023 End: 12-01-2023 Bacteria identified in Urine by Culture URINE CULTURE Microbiology Routine Recent urinary tract infection Recurrent UTI Expected: 09/01/2023 (Approximate), Expires: 12/01/2023 [facility] Comment on above: Expected: 09/01/2023 (Approximate), Expires: 12/01/2023 Start: 09-01-2023 End: 12-01-2023 Urinalysis complete panel - Urine URINALYSIS, WITH MICROSCOPIC Lab Routine Recent urinary tract infection Recurrent UTI Expected: 09/01/2023 (Approximate), Expires: 12/01/2023 [facility] Work Phone: Comment on above: Expected: 09/01/2023 (Approximate), Expires: 12/01/2023 Start: 04-26-2023 End: 07-26-2023 Comprehensive metabolic 2000 panel - Serum or Plasma [facility] Work Phone: Comment on above: Expected: 04/26/2023 , Expires: 07/26/2023 Start: 04-26-2023 End: 07-26-2023 Thyrotropin [Units/volume] in Serum or Plasma [facility] Work Phone: Comment on above: Expected: 04/26/2023 , Expires: 07/26/2023 Start: 04-26-2023 End: 07-26-2023 Thyroxine (T4) free [Mass/volume] in Serum or Plasma [facility] Work Phone: Comment on above: Expected: 04/26/2023 , Expires: 07/26/2023 Start: 04-26-2023 End: 07-26-2023 Urinalysis complete panel - Urine URINALYSIS WITH MICROSCOPIC, REFLEX CULTURE Lab Routine 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) Memory change Expected: 04/26/2023, Expires: 07/26/2023 [facility] Work Phone: Comment on above: Expected: 04/26/2023 , Expires: 07/26/2023 Start: 03-22-2023 Advance Directive Discussion Advance Directive Discussion [facility] Start: 01-31-2023 DIABETES SCREEN DIABETES SCREEN [facility] Start: 11-20-2022 Covid-19 Vaccine () Covid-19 Vaccine () [facility] Start: 11-13-2022 End: 01-13-2023 Bacteria identified in Urine by Culture [facility] Work Phone: Comment on above: Expected: 11/13/2022 , Expires: 01/13/2023 Start: 11-13-2022 End: 01-13-2023 Ferritin [Mass/volume] in Serum or Plasma [facility] Work Phone: Comment on above: Expected: 11/13/2022 , Expires: 01/13/2023 Start: 11-13-2022 End: 01-13-2023 Iron and Iron binding capacity panel - Serum or Plasma [facility] Work Phone: Comment on above: Expected: 11/13/2022 , Expires: 01/13/2023 Start: 11-13-2022 End: 01-13-2023 URINALYSIS, DIPSTICK ONLY [facility] Work Phone: Comment on above: Expected: 11/13/2022 , Expires: 01/13/2023 Start: 09-21-2022 End: 11-21-2022 Basic metabolic 2000 panel - Serum or Plasma BASIC METABOLIC PNL Lab Routine Essential hypertension, benign Anemia, unspecified type Expected: 09/21/2022 (Approximate), Expires: 11/21/2022 [facility] Work Phone: Comment on above: Expected: 09/21/2022 (Approximate), Expires: 11/21/2022 Start: 09-21-2022 End: 11-21-2022 CBC W Auto Differential panel - Blood CBC + DIFF Lab Routine Essential hypertension, benign Anemia, unspecified type Expected: 09/21/2022 (Approximate), Expires: 11/21/2022 [facility] Work Phone: Comment on above: Expected: 09/21/2022 (Approximate), Expires: 11/21/2022 Start: 06-29-2022 End: 08-29-2022 Thyrotropin [Units/volume] in Serum or Plasma TSH BLD Lab Routine Hypothyroidism, unspecified type Expected: 06/29/2022, Expires: 08/29/2022 [facility] Work Phone: Comment on above: Expected: 06/29/2022 , Expires: 08/29/2022 Start: 05-29-2022 End: 07-29-2022 Erythropoietin (EPO) [Units/volume] in Serum or Plasma ERYTHROPOIETIN/EPO Lab Routine Anemia, unspecified type Expected: 05/29/2022, Expires: 07/29/2022 [facility] Work Phone: Comment on above: Expected: 05/29/2022 , Expires: 07/29/2022 Start: 05-29-2022 End: 07-29-2022 Ferritin [Mass/volume] in Serum or Plasma FERRITIN BLD Lab Routine Anemia, unspecified type Expected: 05/29/2022, Expires: 07/29/2022 [facility] Work Phone: Comment on above: Expected: 05/29/2022 , Expires: 07/29/2022 Start: 05-29-2022 End: 07-29-2022 Iron and Iron binding capacity panel - Serum or Plasma IRON + TIBC Lab Routine Anemia, unspecified type Expected: 05/29/2022, Expires: 07/29/2022 [facility] Work Phone: Comment on above: Expected: 05/29/2022 , Expires: 07/29/2022 Start: 05-29-2022 End: 07-29-2022 Lactate dehydrogenase [Enzymatic activity/volume] in Serum or Plasma LD LACTATE DEHYDRO Lab Routine Anemia, unspecified type Expected: 05/29/2022, Expires: 07/29/2022 [facility] Work Phone: Comment on above: Expected: 05/29/2022 , Expires: 07/29/2022 Start: 05-29-2022 End: 07-29-2022 RETIC COUNT RETIC COUNT Lab Routine Anemia, unspecified type Expected: 05/29/2022, Expires: 07/29/2022 [facility] Work Phone: Comment on above: Expected: 05/29/2022 , Expires: 07/29/2022 Start: 05-04-2022 End: 07-04-2022 Basic metabolic 2000 panel - Serum or Plasma BASIC METABOLIC PNL Lab Routine Hypokalemia Essential hypertension, benign Prediabetes Expected: 05/04/2022, Expires: 07/04/2022 [facility] Work Phone: Comment on above: Expected: 05/04/2022 , Expires: 07/04/2022 Start: 05-04-2022 End: 07-04-2022 CBC W Auto Differential panel - Blood CBC + DIFF Lab Routine Essential hypertension, benign Prediabetes Expected: 05/04/2022, Expires: 07/04/2022 [facility] Work Phone: Comment on above: Expected: 05/04/2022 , Expires: 07/04/2022 Start: 05-04-2022 End: 07-04-2022 Hemoglobin A1c in Blood HGB A1C Lab Routine Prediabetes Expected: 05/04/2022, Expires: 07/04/2022 [facility] Work Phone: Comment on above: Expected: 05/04/2022 , Expires: 07/04/2022 Start: 05-04-2022 End: 07-04-2022 Thyrotropin [Units/volume] in Serum or Plasma TSH BLD Lab Routine Hypothyroidism, unspecified type Expected: 05/04/2022, Expires: 07/04/2022 [facility] Work Phone: Comment on above: Expected: 05/04/2022 , Expires: 07/04/2022 Start: 03-22-2022 ADVANCE DIRECTIVE DISCUSSION ADVANCE DIRECTIVE DISCUSSION [facility] Start: 03-20-2022 End: 05-20-2022 CBC W Auto Differential panel - Blood CBC + DIFF Lab Routine Anemia, unspecified type Expected: 03/20/2022 (Approximate), Expires: 05/20/2022 [facility] Work Phone: Comment on above: Expected: 03/20/2022 (Approximate), Expires: 05/20/2022 Start: 02-27-2022 End: 04-29-2022 Thyrotropin [Units/volume] in Serum or Plasma TSH BLD Lab Routine Hypothyroidism, unspecified type Medication management Expected: 02/27/2022 (Approximate), Expires: 04/29/2022 [facility] Work Phone: Comment on above: Expected: 02/27/2022 (Approximate), Expires: 04/29/2022 Start: 01-26-2022 End: 03-28-2022 CBC W Auto Differential panel - Blood CBC + DIFF Lab Routine Anemia, unspecified type Expected: 01/26/2022, Expires: 03/28/2022 [facility] Work Phone: Comment on above: Expected: 01/26/2022 , Expires: 03/28/2022 Start: 01-23-2022 End: 03-25-2022 CBC W Auto Differential panel - Blood [facility] Work Phone: Comment on above: Expected: 01/23/2022 , Expires: 03/25/2022 Start: 01-23-2022 End: 03-25-2022 Ferritin [Mass/volume] in Serum or Plasma [facility] Work Phone: Comment on above: Expected: 01/23/2022 , Expires: 03/25/2022 Start: 01-23-2022 End: 03-25-2022 Iron and Iron binding capacity panel - Serum or Plasma [facility] Work Phone: Comment on above: Expected: 01/23/2022 , Expires: 03/25/2022 Start: 11-28-2021 End: 01-28-2022 25-hydroxyvitamin D3 [Mass/volume] in Serum or Plasma VITAMIN D 25 HYDROXY Lab Routine Vitamin D deficiency Expected: 11/28/2021, Expires: 01/28/2022 [facility] Work Phone: Comment on above: Expected: 11/28/2021 , Expires: 01/28/2022 Start: 11-28-2021 End: 01-28-2022 CBC W Auto Differential panel - Blood [facility] Work Phone: Comment on above: Expected: 11/28/2021 , Expires: 01/28/2022 Start: 11-28-2021 End: 01-28-2022 Cobalamin (Vitamin B12) [Mass/volume] in Serum or Plasma VITAMIN B12 BLOOD Lab Routine Vitamin B12 deficiency Expected: 11/28/2021, Expires: 01/28/2022 [facility] Work Phone: Comment on above: Expected: 11/28/2021 , Expires: 01/28/2022 Start: 11-28-2021 End: 01-28-2022 Comprehensive metabolic 2000 panel - Serum or Plasma [facility] Work Phone: Comment on above: Expected: 11/28/2021 , Expires: 01/28/2022 Start: 11-28-2021 End: 01-28-2022 Hemoglobin A1c in Blood [facility] Work Phone: Comment on above: Expected: 11/28/2021 , Expires: 01/28/2022 Start: 11-28-2021 End: 01-28-2022 Thyrotropin [Units/volume] in Serum or Plasma TSH BLD Lab Routine Hypothyroidism, unspecified type Expected: 11/28/2021, Expires: 01/28/2022 [facility] Work Phone: Comment on above: Expected: 11/28/2021 , Expires: 01/28/2022 Start: 11-28-2021 End: 01-28-2022 Urate [Mass/volume] in Serum or Plasma URIC ACID BLOOD Lab Routine Gout with manifestations Expected: 11/28/2021, Expires: 01/28/2022 [facility] Work Phone: Comment on above: Expected: 11/28/2021 , Expires: 01/28/2022 Start: 11-11-2021 End: 01-11-2022 CBC panel - Blood by Automated count CBC Lab Routine Hypertensive kidney disease with stage 3a chronic kidney disease (HCC) Expected: 11/11/2021, Expires: 01/11/2022 [facility] Work Phone: Comment on above: Expected: 11/11/2021 , Expires: 01/11/2022 Start: 11-11-2021 End: 01-11-2022 SCHEDULE LAB TESTING SCHEDULE LAB TESTING Lab Routine Expected: 11/11/2021, Expires: 01/11/2022 [facility] Work Phone: Comment on above: Expected: 11/11/2021 , Expires: 01/11/2022 Start: 06-12-2021 COVID-19 VACCINE (4 - Booster for Pfizer series) COVID-19 VACCINE (4 - Booster for Pfizer series) [facility] Start: 04-09-2021 COVID-19 VACCINE (4 - Booster for Pfizer series) COVID-19 VACCINE (4 - Booster for Pfizer series) [facility] Start: 04-09-2021 COVID-19 VACCINE (4 - Pfizer series) COVID-19 VACCINE (4 - Pfizer series) [facility] Start: 03-22-2021 ADVANCE DIRECTIVE DISCUSSION ADVANCE DIRECTIVE DISCUSSION [facility] Start: 1996 RSV Vaccine (1 - 1-d ose 60+ series) RSV Vaccine (1 - 1-dose 60+ series) [facility] Start: 1986 SHINGRIX VACCINE (1 of 2) SMITH GRIX VACCINE (1 of 2) [facility] Bacteria identified in Urine by Culture URINE CULTURE Microbiology Routine Recent urinary tract infection Leukocytes in urine 08/13/2023 2:28 PM EDT [facility] End: 01-25-2024 CBC W Auto Differential panel - Blood CBC + DIFF Lab Routine Iron deficiency anemia, unspecified iron deficiency anemia type Once per week for 6 Occurrences starting 01/25/2023 until 01/25/2024 [facility] Work Phone: Comment on above: Once per week for 6 Occurrences starting 01/25/2023 until 01/25/2024 End: 01-25-2024 Ferritin [Mass/volume] in Serum or Plasma FERRITIN BLD Lab Routine Iron deficiency anemia, unspecified iron deficiency anemia type Once per week for 6 Occurrences starting 01/25/2023 until 01/25/2024 [facility] Work Phone: Comment on above: Once per week for 6 Occurrences starting 01/25/2023 until 01/25/2024 Hemoglobin.gastroint estina l.lower [Presence] in Stool by Immunoassay FECAL OCCULT BLOOD TEST Lab Routine Anemia, unspecified type Ordered: 01/26/2022 [facility] Work Phone: Comment on above: Ordered: 01/26/2022 Hemoglobin.gastroint estina l.lower [Presence] in Stool by Immunoassay FECAL OCCULT BLOOD TEST Lab Routine Anemia, unspecified type Ordered: 05/29/2022 [facility] Work Phone: Comment on above: Ordered: 05/29/2022 End: 01-25-2024 Iron and Iron binding capacity panel - Serum or Plasma IRON + TIBC Lab Routine Iron deficiency anemia, unspecified iron deficiency anemia type Once per week for 6 Occurrences starting 01/25/2023 until 01/25/2024 [facility] Work Phone: Comment on above: Once per week for 6 Occurrences starting 01/25/2023 until 01/25/2024 UA DIP, URINE (POC) UA DIP, URIN E (POC) Lab Routine Recent urinary tract infection Ordered: 08/13/2023 [facility] Work Phone: Comment on above: Ordered: 08/13/2023 [facility] Immunizations Immunization Date Immunization Notes Care Provider Joao thorne 01-04-2023 influenza (HD-IIV4) vaccine, age 65+ yr, high dose, quadrivalent, PF (FLUZONE HIGH-DOSE) Zoran Dumont PA-C Work Phone: [facility] Work Phone: 02-12-2021 COVID-19 vaccine, ag e 12+ yr ([employer] - PURPLE TOP) Ming Mcknight MD Work Phone: [facility] Work Phone: 12-27-2020 influenza, high-dose , quadrivalent vaccine (FLUZONE HIGH DOSE QUADRIVALENT) Ming Mcknight MD Work Phone: [facility] Work Phone: 09-02-2020 tetanus and diphther ia toxoids, adsorbed, preservative free, for adult use (5 Lf of tetanus toxoid and 2 Lf of diphtheria toxoid) Ming Mcknight MD Work Phone: [facility] Work Phone: 06-13-2020 COVID-19 vaccine, ag e 12+ yr ([employer] - PURPLE TOP) Ming Mcknight MD Work Phone: [facility] 05-23-2020 COVID-19 vaccine, ag e 12+ yr (PFIZER-[employer]ION[employer] - PURPLE TOP) Ming Mcknight MD Work Phone: [facility] 03-19-2015 pneumococcal conjuga te vaccine, 13 valent Ming Mcknight MD Work Phone: [facility] 07-30-2011 tetanus toxoid, redu rene diphtheria toxoid, and acellular pertussis vaccine, adsorbed Ming Mcknight MD Work Phone: [facility] 09-27-2006 pneumococcal polysaccharide vaccine, 23 valent Ming Mcknight MD Work Phone: [facility] Work Phone: Payers Date Payer Category Payer Medicare MEDICARE MEDICAR E A AND B [id number] 2001-Present [phone] [place] [address] Medicare [id number] 2001 Medicare MEDICARE MEDICAR E A AND B [id number] 2001-Present [phone] [place] [address] Medicare [id number] 2001 Unknown [employer] [facility] MEDICARE SUPPLEMENT [id number] 2001-Present [phone] [address] [place] [address] Indemnity [id number] 2001 Unknown [employer] INSUR [facility] MEDICARE SUPPLEMENT [id number] 2001-Present [phone] [address] [place] [address] Indemnity [id number] 2001 Medicare [id number] 2001 Medicare [id number] Social History Date Type Detail Facility Start: 01-23-2011 End: 01-25-2023 Tobacco smoking status NHIS Ex-smoker [facility] Work Phone: Start: 06-06-2021 End: 12-10-2023 Alcohol intake Current non-drinker of alcohol (finding) [facility] Start: 1935 Sex Assigned At Not on file [facility] Start: 05-27-2021 End: 01-30-2022 Exposure to SARS-CoV-2 (event) Not sure [facility] Work Phone: Start: 03-22-1972 End: 03-22-1992 History of tobacco use Current smoker [facility] Work Phone: Start: 01-23-2011 End: 01-25-2023 Tobacco use and exposure Smokeless tobacco non-user [facility] Work Phone: Start: 11-25-2021 End: 12-05-2021 Exposure to SARS-CoV-2 (event) Unable to assess [facility] Start: 05-26-2022 History SDOH Alcohol Frequency 1 [facility] Start: 05-26-2022 History SDOH Alcohol Std Drinks 0 [facility] Start: 05-26-2022 History SDOH Social Connections Phone 5 [facility] Start: 05-26-2022 History SDOH Social Connections Membership 2 [facility] Start: 05-26-2022 History SDOH Financial 4 [facility] Start: 05-26-2022 End: 08-21-2022 History of Social function [facility] Start: 05-26-2022 End: 08-21-2022 Social connection and isolation panel [facility] Do you belong to any clubs or organizations such as buddhism groups, unions, fraternal or athletic groups, or school groups? No [facility] Are you now , , , , never or living with a partner? [facility] How often to you hav e a drink containing alcohol? Never [facility] How many standard dr inks containing alcohol do you have on a typical day? Patient does not drink [facility] How hard is it for y ou to pay for the very basics like food, housing, medical care, and heating Not very hard [facility] Do you feel stress - tense, restless, nervous, or anxious, or unable to sleep at night because your mind is troubled all the time - these days [OSQ] Not at all [facility] (I/We) worried wheth er (my/our) food would run out before (I/we) got money to buy more. Never true [facility] Start: 03-22-1972 End: 03-22-1992 History of tobacco use Cigarette Smoker [facility] Clinical Notes 03-19-2015 to 12-24-2023 Telephone Encounter - Isatu Moreno LPN - 12/24/2023 3:59 PM EDTTelephone Encounter - Isatu Moreno LPN - 12/24/2023 3:59 PM EDTTelephone Encounter - Isatu Moreno LPN - 12/24/2023 3:59 PM EDT Note Date & Type Note Facility 12-24-2023 Telephone encounter Note Updated via [employer] Isatu Moreno LPN December 24, 2023 3:59 PM [facility] 12-24-2023 Telephone encounter Note ----- Message from Ming Mcknight MD sent at 12/24/2023 2:33 PM EDT ----- Hb is a little improved from the last time Ming Vargas MD [facility] 12-24-2023 Miscellaneous Notes Updated via [employer] Isatu Moreno LPN December 24, 2023 3:59 PM ----- Message from Ming Mcknight MD sent at 12/24/2023 2:33 PM EDT ----- Hb is a little improved from the last time Ming Vargas MD documented in this encounter [facility] 12-14-2023 Telephone encounter Note Jillian notified and verbalized understanding. Zoran Gamble MA [facility] 12-14-2023 Miscellaneous Notes Jillian notified and verbalized understanding. Zoran Gamble MA I have ordered the cbc. She will need to have a follow up. Ming Vargas MD Patient's Daughter calls and states that they had taken patient to [facility] hospital yesterday. Patient's Hgb was 6.8 [...] Johanna Gamez RN documented in this encounter [facility] 12-14-2023 Telephone encounter Note I have ordered the cbc. She will need to have a follow up. Ming Vargas MD [facility] Work Phone: 12-14-2023 Telephone encounter Note Patient's Daughter calls and states that they had taken patient to [facility] hospital yesterday. Patient's Hgb was 6.8 [...] order to be placed. Johanna Gamez RN [facility] 12-13-2023 Telephone encounter Note Daughter notified, was already on way up from [place] and feels she will just plan on going to ER to be on the safe side. [facility] 12-13-2023 Miscellaneous Notes Daughter notified, was already on way up from [place] and feels she will just plan on going to ER to be on the safe side. She only needs to go to ER if actively bleeding or symptomatic. If not we can look into doing outpt transfusion if needed and as an outpt identify a cause. Thank you Shonda Tyler APRN.CNP Phoned Jillian patient daughter who said she lives in [place]. Went over results notes from Shonda Tyler FRUIT RANCHER, she said she does not see mother stools so she does not know, she said she sleeps a lot but thought it is medications. She said she just got back home from [place], she said so I need to get back in my car and come back to [place] and take her to the ER. Asked [...] Shonda Tyler APRN.CNP documented in this encounter [facility] 12-13-2023 Telephone encounter Note She only needs to go to ER if actively bleeding or symptomatic. If not we can look into doing outpt transfusion if needed and as an outpt identify a cause. Thank you Shonda Tyler APRN.CNP [facility] 12-13-2023 Telephone encounter Note Phoned Jillian patient daughter who said she lives in [place]. Went over results notes from Shonda Tyler FRUIT RANCHER, she said she does not see mother stools so she does not know, she said she sleeps a lot but thought it is medications. She said she just got back home from [place], she said so I need to get back in my car and come back to [place] and take her to the ER. Asked if she was her POA for healthcare and she said no, my niece is. So she is calling the niece to tell her she needs to go to the ER for possible blood transfusions. [facility] 12-13-2023 Telephone encounter Note Hgb is low at 7.1? Any active bleeding? Dark sticky stools? Shortness of breath? Lethargy? Chest pain? Palpitations? If symptomatic, she needs to go to ER. Thank you Shonda Tyler APRN.CNP [facility] 12-10-2023 Note HNO ID: [id number] Author: SHONDA TYLER APRN.CNP Service: ? Author [...] Take 1 tablet by mouth once daily. Ypviwciyuwkve-Lhbxdlrb-Koadnp (CENTRUM SILVER) ORAL Tab Take one(1) tablet [...] Screening Completed Adva (more content not included)... [facility] 12-10-2023 History of Presen t illness [...] Take 1 tablet by mouth once daily. Msefdzgssgphz-Nprtoxnn-Sqdpkd (CENTRUM SILVER) ORAL Tab Take one(1) tablet [...] Shonda Tyler APRN.CNP documented in this encounter [facility] 10-04-2023 Telephone encounter Note The patient [...] Gamez RN October 04, 2023 8:12 AM [facility] 10-04-2023 Miscellaneous Notes The patient has [...] 2023 8:12 AM documented in this encounter [facility] 09-24-2023 Telephone encounter Note Left detailed message with daughter. Lilia Richmond MA [facility] 09-24-2023 Miscellaneous Notes Left detailed message with daughter. Lilia Richmond MA The following approved medication requests have been transmitted electronically. Requested Prescriptions Signed Prescriptions Disp Refills sulfamethoxazole-trimethoprim (BACTRIM DS) 800-160 mg per tablet 14 tablet 0 Sig: Take 1 tablet by mouth two times a day for 7 days. Authorizing Provider: KRYSTAL MEZA APRN.FORGING MACHINE HAND Pts daughter called and is notified of providers results and instructions. She voices understanding and states she was never notified about any antibiotic. Please send antibiotic to [facility] in [place] and call and leave a VM on [...] Krystal Meza APRN.CNP documented in this encounter [facility] 09-24-2023 Telephone encounter Note The following approved medication requests have been transmitted electronically. Requested Prescriptions Signed Prescriptions Disp Refills sulfamethoxazole-trimethoprim (BACTRIM DS) 800-160 mg per tablet 14 tablet 0 Sig: Take 1 tablet by mouth two times a day for 7 days. Authorizing Provider: KRYSTAL MEZA APRN.CNP [facility] 09-24-2023 Telephone encounter Note Pts daughter called and is notified of providers results and instructions. She voices understanding and states she was never notified about any antibiotic. Please send antibiotic to [facility] in [place] and call and leave a VM on the daughters phone to let her know when it was sent. Suzy Lindo, KEYONNA [facility] 09-24-2023 Telephone encounter Note Left message to return call. [facility] 09-24-2023 Telephone encounter Note Please let her know that her urine culture does show a UTI. I don't see that Shonda sent her in an antibiotic? Please confirm this with her and I will send one in. Krystal Meza APRN.CNP [facility] 08-18-2023 Telephone encounter Note Patient daughter notified. [facility] 08-18-2023 Miscellaneous Notes Patient daughter notified. Urine still with bacteria but no sensitivity performed. I am repeating treatment of bactrim but slightly lowering dose in response to previous kidney function. Repeat urine 10-14 days after completion of treatment. documented in this encounter [facility] 08-18-2023 Telephone encounter Note Urine still with bacteria but no sensitivity performed. I am repeating treatment of bactrim but slightly lowering dose in response to previous kidney function. Repeat urine 10-14 days after completion of treatment. [facility] 08-13-2023 Telephone encounter Note Daughter phones for refill(s): Requested Prescriptions Pending Prescriptions Disp Refills levothyroxine (LEVOXYL) 50 mcg tablet 30 tablet 5 Sig: Take 1 tablet by mouth once daily. Take on empty stomach. For Thyroid Date of last office visit in primary care: 08/13/2023 Date of next office visit in primary care: 11/15/2023 Lara Rodríguez RN. [facility] 08-13-2023 Miscellaneous Notes Daughter phones for refill(s): Requested Prescriptions Pending Prescriptions Disp Refills levothyroxine (LEVOXYL) 50 mcg tablet 30 tablet 5 Sig: Take 1 tablet by mouth once daily. Take on empty stomach. For Thyroid Date of last office visit in primary care: 08/13/2023 Date of next office visit in primary care: 11/15/2023 Lara Rodríguez RN. documented in this encounter [facility] 08-13-2023 Note HNO ID: [id number] Author: SHONDA TYLER APRN.FORGING MACHINE HAND Service: ? Author Type: Nurse Practitioner Type: [...] Take 1 tablet by mouth once daily. Oqshdxnugzxty-Tcmrdsvb-Iggxvn (CENTRUM SILVER) ORAL Tab Take one(1) tablet [...] URINE CULTURE 3. (more content not included)... [facility] 08-13-2023 History of Presen t illness [...] Take 1 tablet by mouth once daily. Actxdohgktflg-Awhdgvwm-Pbvznz (CENTRUM SILVER) ORAL Tab Take one(1) tablet [...] Patient agreeable to treatment plan. Shonda Tyler APRN.FORGING MACHINE HAND documented in this encounter [facility] 06-09-2023 Miscellaneous Notes Requested Prescriptions Pending [...] Zoran Steele Pss documented in this encounter [facility] 04-29-2023 Miscellaneous Notes Pts granddaughter Suzy called and is notified of providers results and instructions. She voices understanding and her or her mother will go pick the medication up for the Pt. Suzy Lindo RN Patient is positive for urinary tract infection. Hold your potassium supplement while on the antibiotic. Thank you Shonda Tyler APRN.CNP documented in this encounter [facility] 04-26-2023 Note HNO ID: [id number] Author: SHONDA TYLER APRN.CNP Service: ? Author Type: Nurse Practitioner Type: Progress Notes Filed: 04/26/2023 14:41 Note Text: CC: Patient presents with: Recheck: Follow up anemia HPI Ainlsey Sorenson is a 87 year old female [...] Take 1 tablet by mouth once daily. Qmqabcbljebts-Mcnpgjzy-Mbkchi (CENTRUM SILVER) ORAL Tab Take one(1) tablet [...] Never done D (more content not included)... [facility] 04-26-2023 History of Presen t illness [...] Take 1 tablet by mouth once daily. Kljjbztidcrcs-Npfvcbqn-Xsqzqj (CENTRUM SILVER) ORAL Tab Take one(1) tablet [...] - Instructed patient to contact office or focyz-wh-ehiw after-hours promptly should condition worsen or any new symptoms appear. - [facility] and after hours crisis line 5. [...] Patient agreeable to treatment plan. Shonda Tyler APRN.ASBIHA documented in this encounter [facility] 02-04-2023 Miscellaneous Notes Pt noted on [facility] 1st time treatment report. Pt has a non-oncology regimen. No social work follow up indicated. BONIFACIO Rodrigues-S Oncology SW documented in this encounter [facility] 01-25-2023 Note HNO ID: [id number] Author: Stu Schaeffer MD Service: ? Author [...] Take 1 tablet by mouth once daily. Ekgsyxjqzlmzl-Udvzrhjb-Bwkhvy (CENTRUM SILVER) ORAL Tab Take one(1) tablet [...] which included preparing to see the patient, rhco-lz-edsd patient care, completing clinical documentation, obtaining and/or reviewing separately obtained history, counseling and educating the patient/family/caregiver, ordering medications, tests, or procedures, communicating with other HCPs (not separately reported), and communicating results to the patient/family/caregiver. Electronically Signed: Stu Schaeffer MD January 25, 2023 1:08 PM [facility] [facility] History of Presen t illness [...] Take 1 tablet by mouth once daily. Cimcidncqfona-Exqmtqxc-Ywoyfg (CENTRUM SILVER) ORAL Tab Take one(1) tablet [...] which included preparing to see the patient, rxbz-ol-ugup patient care, completing clinical documentation, obtaining and/or reviewing separately obtained history, counseling and educating the patient/family/caregiver, ordering medications, tests, or procedures, communicating with other HCPs (not separately reported), and communicating results to the patient/family/caregiver. Electronically Signed: Stu Schaeffer MD January 25, 2023 1:08 PM documented in this encounter [facility] 01-07-2023 Miscellaneous Notes Pt scheduled by another PSS LM for a return call. When she calls, please schedule first available [facility] re: anemia that works for the patient. Johanna Carlson OK to schedule with first available. Alexandra Michel RN Please review and advise. CONSULT TO HEMATOLOGY Status: Needs Scheduling Requested appt date: Authorizing: Zoran Dumont PA-C in [facility] Referral: [id number] (Authorized) Expires: 01/04/2024 Priority: Routine Diagnosis: Iron deficiency anemia, unspecified iron deficiency anemia type [D50.9] Comments Pt's provider would like pt to see Hematology. Due to anemia, iron deficiency. Zoran Dumont Please advise? documented in this encounter [facility] 01-04-2023 Note HNO ID: [id number] Author: Zoran Dumont PA-C Service: ? Author Type: Physician Compliance Analyst Type: Progress Notes Filed: 01/05/2023 12:20 PM Note Text: CC: Patient presents with: Follow Up: labs,urine,confusion Immunizations: Flu vaccination HPI Ainsley Sorenson is a 87 year old female who presents today with daughter, Jillian, for 6 wk f/u regarding anemia. This daughter who takes her to all her appts, has to drive in from [place] and states it's a lot every time [...] Blood pressure monitor weight of pt 103# Xviwplonvfgkq-Phqppeye-Iitznc (CENTRUM SILVER) ORAL Tab Take one(1) tablet [...] Due to progressi (more content not included)... [facility] 01-04-2023 History of Presen t illness Narrative CC: Patient presents with: Follow Up: labs,urine,confusion Immunizations: Flu vaccination [facility] Ainsley Sorenson is a 87 year old female who presents today with daughter, Jillian, for 6 wk f/u regarding anemia. This daughter who takes her to all her appts, has to drive in from [place] and states it's a lot every time [...] colonoscopy, or additional work-up regarding this. From [facility] prior visit on 11/13/22: Patient was last [...] Blood pressure monitor weight of pt 103# Hydehbhgkwzrm-Odiyewsy-Msccku (CENTRUM SILVER) ORAL Tab Take one(1) tablet [...] Zoran Dumont PA-C documented in this encounter [facility] 11-17-2022 Miscellaneous Notes Rx sent. Patient's [...] those results. Please phone Jillian with reply: [phone] documented in this encounter [facility] 11-13-2022 History of Presen t illness [...] Take 1 tablet by mouth once daily. Kqkrnwqzuvlup-Foidggan-Zpwyux (CENTRUM SILVER) ORAL Tab Take one(1) tablet [...] Zoran Dumont PA-C documented in this encounter [facility] 11-10-2022 Miscellaneous Notes Zoran, looks like she is seeing you 11/13. Called pts daughter to review the procedure for this. Also called [facility] outpt infusion to let them know also. Order faxed and they will call pt to arrange for both the lab draw and the transfusion. Fyi to [facility] for 11/13/22 appt.(Nothing else is needed at [...] consult at that appointment. Jillian lives in [place] and works so will have to juggle that in order to get patient to an appointment. Please call Jillian at [phone] to schedule once orders are placed. Saumya [...] in the past. documented in this encounter [facility] 08-21-2022 History of Presen t illness Narrative CC: Patient presents with: Recheck: Follow up, review labs and BP HPI Ainsley Sorenson is a 86 year old female who presents today for routine follow up. Is accompanied by her daughter. Patient lives alone but other daughter lives across the street and comes over daily to check on mother, help with anything needed, and fast food fry cook. Last appointment with PCP zoloft decreased because [...] Take 1 tablet by mouth once daily. Khfbznxyiwpuv-Vbwnlkdu-Rlaxdf (CENTRUM SILVER) ORAL Tab Take one(1) tablet [...] - Instructed patient to contact office or skpka-sr-hbuz after-hours promptly should condition worsen or any new symptoms appear. - [facility] and after hours crisis line 3. [...] Shonda Tyler APRN.SABIHA documented in this encounter [facility] 06-05-2022 Miscellaneous Notes Addended by: SHONDA [...] Iliana Mata LPN documented in this encounter [facility] 05-29-2022 History of Presen t illness [...] (ASPIRIN, ENTERIC COATED) 81 mg EC tablet Kwdlnttofxsxh-Pcltxgku-Nagvdj (CENTRUM SILVER) ORAL Tab Review of Systems [...] Ming Mcknight MD documented in this encounter [facility] 05-04-2022 Miscellaneous Notes Left a detailed [...] done until Wednesday. documented in this encounter [facility] 02-18-2022 Miscellaneous Notes Left detailed message [...] over results, notes below from Shonda Tyler [facility]. Daughter said my mother is under 100 hundred pounds and the prep for a colonoscopy would kill her, she can not do a colonoscopy. Daughter would like [facility] to call her about this please. Noted Regards, Ming Mcknight MD Left message for return call. Please let patient/daughter know stool was positive for hidden blood. I am consulting her to general surgery for further evaluation. Thank you Shonda Tyler APRN.CNP Suzygabby Sorenson calling for results of stool testing and next step. Please advise. Iliana Mata LPN documented in this encounter [facility] 02-09-2022 Miscellaneous Notes Patient has been [...] to pharmacy. No need to notify patient. [facility] documented in this encounter [facility] 01-30-2022 History of Presen t illness [...] Mindy Mancia MD documented in this encounter [facility] 01-30-2022 Miscellaneous Notes Noted. Thank you [...] Angelic Franklin RN documented in this encounter [facility] 01-28-2022 Miscellaneous Notes Daughter notified. Order sent. TSH needs rechecked in 4-6 weeks. Thank you Shonda Tyler APRN.CNP Patient daughter states no thyroid medication has been taken, notified that 25mcg will be sent to [facility]. Levothyroxine 75mcg once daily is still [...] Shonda Tyler APRN.CNP documented in this encounter [facility] 01-26-2022 Miscellaneous Notes Noted, will re-evaluate [...] Shonda Tyler APRN.SABIHA documented in this encounter [facility] 01-23-2022 History of Presen t illness [...] Take 1 tablet by mouth once daily. Qtrkorphmhyjp-Oplmnwqp-Qagqsk (CENTRUM SILVER) ORAL Tab Take one(1) tablet [...] - Instructed patient to contact office or bluto-ba-lvid after-hours promptly should condition worsen or any new symptoms appear. - [facility] and after hours crisis line 4. [...] Shonda Tyler APRN.CNP documented in this encounter [facility] 01-12-2022 Miscellaneous Notes Refilled medication Daughter calling and the last prescription for medication below had to be transferred to [facility]. Daughter spoke with them and they are [...] Iliana Mata LPN documented in this encounter [facility] 01-05-2022 Miscellaneous Notes Patient's Daughter calls and notified that iron prescription was sent to [facility]. Voices understanding. Johanna Gamez RN I sent [...] recommended? Jillian asking for call back at [phone]. Please review and advise, Saumya Maldonado RN documented in this encounter [facility] 12-05-2021 Miscellaneous Notes Spoke with daughter, appointment scheduled ----- Message from Ming Mcknight MD sent at 12/05/2021 1:23 PM EDT ----- Some abnormalities in labs, we can have her in for an apt to discuss or else we can do it at the next apt Nothing very very concerning; Regards, Ming Mcknight MD documented in this encounter [facility] 11-28-2021 History of Presen t illness Narrative Reason for Visit Patient presents with: F/U 6 months Ainsley Sorenson is a 86 year old female who presents here today for Above Complaints. Health Maintenance SHINGRIX VACCINE(1 of 2) ADVANCE DIRECTIVE DISCUSSION COVID-19 VACCINE(4 - Booster for Pfizer series) HPI [place] but does not want to have hearing [...] Anemia: In the recent hospital visit at [place] for UTI she had mild anemia and [...] (ASPIRIN, ENTERIC COATED) 81 mg EC tablet Ejyrtiqicixbd-Smlmxbnw-Coqikw (CENTRUM SILVER) ORAL Tab Oxyquinoline-Na Lauryl Sulfate [...] Ming Mcknight MD documented in this encounter [facility] 11-26-2021 History of Presen t illness Narrative Images from the original note were not included. This note was created using [employer]. Subjective Ainsley Sorenson is a 86 year [...] 1 tablet by mouth once daily. 0 Dolbosfqamlbe-Kjeqiwmy-Dgzqfn (CENTRUM SILVER) ORAL Tab Take one(1) tablet [...] Neela Oneill PA-C documented in this encounter [facility] 11-14-2021 Evaluation note Diagnosis Hypertensive kidney disease with stage 3a chronic kidney disease (HCC) documented in this encounter [facility]08-01-2022 Miscellaneous Notes* Telephone Encounter - Leah [...] patient. Zoran Steele Pss [facility] History of Present illness Narrative* Mindy [...] no apparent distress Pelvic: Bartholin's, urethra and [place]'s glands were normal. The ring with support [...] prn Mindy Mancia MD [facility] Miscellaneous Notes* Telephone Encounter - Rosario Hebert LPN - 07/05/2021 10:58 AM EDT Wednesday refill is fine. * Telephone Encounter - Rosario Hebert LPN - 07/05/2021 10:56 AM EDT Patient has been identified by name and date of : Yes [employer] phones for refill(s): Pending Prescriptions Disp Refills ALLOPURINOL 100 MG TABLET 90 tablet 3 Sig: Take 1 tablet by mouth once daily. For gout. GREGG: No Date of last office visit in primary care: 06/06/21 Please advise. Thank you. Rosario Hebert LPN [facility] History of Present illness Narrative* Melissa [...] 16, 2021 1:23 PM [facility] History of Past illness Narrative* Problem Noted Date Resolved Date Depression 03/19/2015 10/12/2019 Internal hemorrhoids without mention of complica tion 04/07/2012 03/01/2014 Uterine prolapse without mention of vaginal wall prolapse 07/31/2009 07/31/2009 Other symptoms involving cardiovascular system 12/25/2015 documented as of this encounter (statuses as of 07/07/2021) [facility] History of Past illness Narrative* Problem Noted Date Resolved Date Depression 03/19/2015 10/12/2019 Internal hemorrhoids without mention of complica tion 04/07/2012 03/01/2014 Uterine prolapse without mention of vaginal wall prolapse 07/31/2009 07/31/2009 Other symptoms involving cardiovascular system 12/25/2015 documented as of this encounter (statuses as of 07/25/2021) [facility] of [facility] illness Narrative* Problem Noted Date Resolved Date Depression 03/19/2015 10/12/2019 Internal hemorrhoids without mention of complica tion 04/07/2012 03/01/2014 Uterine prolapse without mention of vaginal wall prolapse 07/31/2009 07/31/2009 Other symptoms involving cardiovascular system 12/25/2015 documented as of this encounter (statuses as of 10/20/2021) [facility] Narrative* Problem Noted Date Resolved Date Depression 03/19/2015 10/12/2019 Internal hemorrhoids without mention of complica tion 04/07/2012 03/01/2014 Uterine prolapse without mention of vaginal wall prolapse 07/31/2009 07/31/2009 Other symptoms involving cardiovascular system 12/25/2015 documented as of this encounter (statuses as of 11/14/2021) [facility] of [facility] illness Narrative* Problem Noted Date Resolved Date Depression 03/19/2015 10/12/2019 Internal hemorrhoids without mention of complica tion 04/07/2012 03/01/2014 Uterine prolapse without mention of vaginal wall prolapse 07/31/2009 07/31/2009 Other symptoms involving cardiovascular system 12/25/2015 documented as of this encounter (statuses as of 11/26/2021) [facility] Narrative* Problem Noted Date Resolved Date Depression 03/19/2015 10/12/2019 Internal hemorrhoids without mention of complica tion 04/07/2012 03/01/2014 Uterine prolapse without mention of vaginal wall prolapse 07/31/2009 07/31/2009 Other symptoms involving cardiovascular system 12/25/2015 documented as of this encounter (statuses as of 11/28/2021) [facility] Narrative* Problem Noted Date Resolved Date Depression 03/19/2015 10/12/2019 Internal hemorrhoids without mention of complica tion 04/07/2012 03/01/2014 Uterine prolapse without mention of vaginal wall prolapse 07/31/2009 07/31/2009 Other symptoms involving cardiovascular system 12/25/2015 documented as of this encounter (statuses as of 12/05/2021) [facility] Narrative* Problem Noted Date Resolved Date Depression 03/19/2015 10/12/2019 Internal hemorrhoids without mention of complica tion 04/07/2012 03/01/2014 Uterine prolapse without mention of vaginal wall prolapse 07/31/2009 07/31/2009 Other symptoms involving cardiovascular system 12/25/2015 documented as of this encounter (statuses as of 01/05/2022) [facility] Narrative* Problem Noted Date Resolved Date Depression 03/19/2015 10/12/2019 Internal hemorrhoids without mention of complica tion 04/07/2012 03/01/2014 Uterine prolapse without mention of vaginal wall prolapse 07/31/2009 07/31/2009 Other symptoms involving cardiovascular system 12/25/2015 documented as of this encounter (statuses as of 01/13/2022) [facility] Narrative* Problem Noted Date Resolved Date Depression 03/19/2015 10/12/2019 Internal hemorrhoids without mention of complica tion 04/07/2012 03/01/2014 Uterine prolapse without mention of vaginal wall prolapse 07/31/2009 07/31/2009 Other symptoms involving cardiovascular system 12/25/2015 documented as of this encounter (statuses as of 01/23/2022) [facility] Narrative* Problem Noted Date Resolved Date Depression 03/19/2015 10/12/2019 Internal hemorrhoids without mention of complica tion 04/07/2012 03/01/2014 Uterine prolapse without mention of vaginal wall prolapse 07/31/2009 07/31/2009 Other symptoms involving cardiovascular system 12/25/2015 documented as of this encounter (statuses as of 01/26/2022) [facility] Narrative* Problem Noted Date Resolved Date Depression 03/19/2015 10/12/2019 Internal hemorrhoids without mention of complica tion 04/07/2012 03/01/2014 Uterine prolapse without mention of vaginal wall prolapse 07/31/2009 07/31/2009 Other symptoms involving cardiovascular system 12/25/2015 documented as of this encounter (statuses as of 01/28/2022) [facility] Narrative* Problem Noted Date Resolved Date Depression 03/19/2015 10/12/2019 Internal hemorrhoids without mention of complica tion 04/07/2012 03/01/2014 Uterine prolapse without mention of vaginal wall prolapse 07/31/2009 07/31/2009 Other symptoms involving cardiovascular system 12/25/2015 documented as of this encounter (statuses as of 01/30/2022) [facility] Narrative* Problem Noted Date Resolved Date Depression 03/19/2015 10/12/2019 Internal hemorrhoids without mention of complica tion 04/07/2012 03/01/2014 Uterine prolapse without mention of vaginal wall prolapse 07/31/2009 07/31/2009 Other symptoms involving cardiovascular system 12/25/2015 documented as of this encounter (statuses as of 01/30/2022) [facility] Narrative* Problem Noted Date Resolved Date Depression 03/19/2015 10/12/2019 Internal hemorrhoids without mention of complica tion 04/07/2012 03/01/2014 Uterine prolapse without mention of vaginal wall prolapse 07/31/2009 07/31/2009 Other symptoms involving cardiovascular system 12/25/2015 documented as of this encounter (statuses as of 02/11/2022) [facility]* Problem Noted Date Resolved Date Depression 03/19/2015 10/12/2019 Internal hemorrhoids without mention of complica tion 04/07/2012 03/01/2014 Uterine prolapse without mention of vaginal wall prolapse 07/31/2009 07/31/2009 Other symptoms involving cardiovascular system 12/25/2015 documented as of this encounter (statuses as of 02/18/2022) [facility] Narrative* Problem Noted Date Resolved Date Depression 03/19/2015 10/12/2019 Internal hemorrhoids without mention of complica tion 04/07/2012 03/01/2014 Uterine prolapse without mention of vaginal wall prolapse 07/31/2009 07/31/2009 Other symptoms involving cardiovascular system 12/25/2015 documented as of this encounter (statuses as of 05/05/2022) [facility] Narrative* Problem Noted Date Resolved Date Depression 03/19/2015 10/12/2019 Internal hemorrhoids without mention of complica tion 04/07/2012 03/01/2014 Uterine prolapse without mention of vaginal wall prolapse 07/31/2009 07/31/2009 Other symptoms involving cardiovascular system 12/25/2015 documented as of this encounter (statuses as of 05/30/2022) [facility] Narrative* Problem Noted Date Resolved Date Depression 03/19/2015 10/12/2019 Internal hemorrhoids without mention of complica tion 04/07/2012 03/01/2014 Uterine prolapse without mention of vaginal wall prolapse 07/31/2009 07/31/2009 Other symptoms involving cardiovascular system 12/25/2015 documented as of this encounter (statuses as of 06/05/2022) [facility] Narrative* Problem Noted Date Resolved Date Depression 03/19/2015 10/12/2019 Internal hemorrhoids without mention of complica tion 04/07/2012 03/01/2014 Uterine prolapse without mention of vaginal wall prolapse 07/31/2009 07/31/2009 Other symptoms involving cardiovascular system 12/25/2015 documented as of this encounter (statuses as of 08/21/2022) [facility]* Problem Noted Date Diagnosed Date Resolved Date Depression 03/19/2015 10/12/2019 Internal hemorrhoids without mention of complication 04/07/2012 03/01/2014 Uterine prolapse without men tion of vaginal wall prolapse 07/31/2009 07/31/2009 Other symptoms involving car diovascular system 12/25/2015 documented as of this encounter (statuses as of 11/13/2022) [facility]* Problem Noted Date Diagnosed Date Resolved Date Depression 03/19/2015 10/12/2019 Internal hemorrhoids without mention of complication 04/07/2012 03/01/2014 Uterine prolapse without men tion of vaginal wall prolapse 07/31/2009 07/31/2009 Other symptoms involving car diovascular system 12/25/2015 documented as of this encounter (statuses as of 11/14/2022) [facility]* Problem Noted Date Diagnosed Date Resolved Date Depression 03/19/2015 10/12/2019 Internal hemorrhoids without mention of complication 04/07/2012 03/01/2014 Uterine prolapse without men tion of vaginal wall prolapse 07/31/2009 07/31/2009 Other symptoms involving car diovascular system 12/25/2015 documented as of this encounter (statuses as of 11/18/2022) [facility]arrative* Problem Noted Date Diagnosed Date Resolved Date Depression 03/19/2015 10/12/2019 Internal hemorrhoids without mention of complication 04/07/2012 03/01/2014 Uterine prolapse without men tion of vaginal wall prolapse 07/31/2009 07/31/2009 Other symptoms involving car diovascular system 12/25/2015 documented as of this encounter (statuses as of 01/05/2023) [facility] Narrative* Problem Noted Date Diagnosed Date Resolved Date Depression 03/19/2015 10/12/2019 Internal hemorrhoids without mention of complication 04/07/2012 03/01/2014 Uterine prolapse without men tion of vaginal wall prolapse 07/31/2009 07/31/2009 Other symptoms involving car diovascular system 12/25/2015 documented as of this encounter (statuses as of 01/07/2023) [facility] N[facility]ative* Problem Noted Date Diagnosed Date Resolved Date Depression 03/19/2015 10/12/2019 Internal hemorrhoids without mention of complication 04/07/2012 03/01/2014 Uterine prolapse without men tion of vaginal wall prolapse 07/31/2009 07/31/2009 Other symptoms involving car diovascular system 12/25/2015 documented as of this encounter (statuses as of 01/26/2023) [facility] Narrative* Problem Noted Date Diagnosed Date Resolved Date Depression 03/19/2015 10/12/2019 Internal hemorrhoids without mention of complication 04/07/2012 03/01/2014 Uterine prolapse without men tion of vaginal wall prolapse 07/31/2009 07/31/2009 Other symptoms involving car diovascular system 12/25/2015 documented as of this encounter (statuses as of 02/04/2023) [facility] Narrative* Problem Noted Date Diagnosed Date Resolved Date Depression 03/19/2015 10/12/2019 Internal hemorrhoids without mention of complication 04/07/2012 03/01/2014 Uterine prolapse without men tion of vaginal wall prolapse 07/31/2009 07/31/2009 Other symptoms involving car diovascular system 12/25/2015 documented as of this encounter (statuses as of 02/05/2023) [facility]* Problem Noted Date Diagnosed Date Resolved Date Depression 03/19/2015 10/12/2019 Internal hemorrhoids without mention of complication 04/07/2012 03/01/2014 Uterine prolapse without men tion of vaginal wall prolapse 07/31/2009 07/31/2009 Other symptoms involving car diovascular system 12/25/2015 documented as of this encounter (statuses as of 02/26/2023) [facility] Narrative* Problem Noted Date Diagnosed Date Resolved Date Depression 03/19/2015 10/12/2019 Internal hemorrhoids without mention of complication 04/07/2012 03/01/2014 Uterine prolapse without men tion of vaginal wall prolapse 07/31/2009 07/31/2009 Other symptoms involving car diovascular system 12/25/2015 documented as of this encounter (statuses as of 04/27/2023) [facility] Narrative* Problem Noted Date Diagnosed Date Resolved Date Depression 03/19/2015 10/12/2019 Internal hemorrhoids without mention of complication 04/07/2012 03/01/2014 Uterine prolapse without men tion of vaginal wall prolapse 07/31/2009 07/31/2009 Other symptoms involving car diovascular system 12/25/2015 documented as of this encounter (statuses as of 04/29/2023) [facility] History of Past illness Narrative* Problem Noted Date Diagnosed Date Resolved Date Depression 03/19/2015 10/12/2019 Internal hemorrhoids without mention of complication 04/07/2012 03/01/2014 Uterine prolapse without men tion of vaginal wall prolapse 07/31/2009 07/31/2009 Other symptoms involving car diovascular system 12/25/2015 documented as of this encounter (statuses as of 06/09/2023) [facility] Diagnosis Gout with manifestations Gout with other specified manifestations [facility] Diagnosis Uterovaginal prolapse, complete- Primary Encounter for pessary maintenance Fitting and adjustment of other device [facility]* Diagnosis Hypokalemia [facility]opotassemia [facility] Diagnosis Skin infection- Primary Unspecified local infection of skin and subcutaneous tissue [facility] Diagnosis Vitamin B12 deficiency- Primary Other B-complex deficiencies Gout with manifestations Gout with other specified manifestations Vitamin D deficiency Unspecified vitamin D deficiency Hypothyroidism, unspecified type Essential hypertension, benign Encounter for screening for diabetes mellitus Screening for diabetes mellitus Elevated glucose Other abnormal glucose [facility] Diagnosis Anemia, unspecified type- Primary Prediabetes Other abnormal glucose Major depressive disorder with single episode, in full remission (HCC) Chronic anxiety Anxiety state, unspecified 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) [facility] Diagnosis Anemia, unspecified type- Primary [facility] Diagnosis Hypothyroidism, unspecified type- Primary Medication management Encounter for long-term (current) use of other medications [facility]* Diagnosis Pessary maintenance- Primary Fitting and adjustment of other device Incomplete uterovaginal prolapse Uterovaginal prolapse, incomplete [facility]* Diagnosis 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) documented in this encounter [facility] note* Diagnosis Anemia, unspecified type- Primary [facility] Diagnosis Hypothyroidism, unspecified type- Primary Hypokalemia Hypopotassemia Essential hypertension, benign Prediabetes Other abnormal glucose [facility] Diagnosis Anemia, unspecified type- Primary Major depressive disorder with single episode, in full remission (HCC) Chronic anxiety Anxiety state, unspecified Hypothyroidism, unspecified type Essential hypertension, benign [facility]* Diagnosis Essential hypertension, benign [facility]* Diagnosis Essential hypertension, benign- Primary Major depressive disorder with single episode, in full remission (HCC) Chronic anxiety Anxiety state, unspecified Anemia, unspecified type Hypothyroidism, unspecified type [facility] Diagnosis Microcytic anemia- Primary Iron deficiency anemia, unspecified History of recent blood transfusion Acute confusion Delirium due to conditions classified elsewhere [facility] Diagnosis Iron deficiency anemia due to chronic blood loss- Primary Iron deficiency anemia secondary to blood loss (chronic) [facility]* Diagnosis Urinary tract infection without hematuria, site unspecified- Primary [facility]* Diagnosis Iron deficiency anemia, unspecified iron deficiency anemia type- Primary 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) Gout with manifestations Gout with other specified manifestations Need for influenza vaccination Need for prophylactic vaccination and inoculation against influenza [facility]* Diagnosis Iron deficiency anemia, unspecified iron deficiency anemia type- Primary [facility]* Diagnosis Iron deficiency anemia, unspecified iron deficiency anemia type documented [facility]* Diagnosis Iron deficiency anemia, unspecified iron deficiency anemia type- Primary [facility]* Diagnosis Other iron deficiency anemia- Primary Iron deficiency anemia, unspecified iron deficiency anemia type [facility]* Diagnosis 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)- Primary Memory change Memory loss Hypothyroidism, unspecified type Major depressive disorder with single episode, in full remission (HCC) Chronic anxiety Anxiety state, unspecified Stage 3a chronic kidney disease (HCC) Diarrhea, unspecified type [facility]* Diagnosis Major depressive disorder with single episode, in full remission (HCC) Chronic anxiety Anxiety state, unspecified [facility]* Diagnosis Recent urinary tract infection- Primary Leukocytes in urine Other cells and casts in urine 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) Diarrhea, unspecified type [facility]* Diagnosis Recent urinary tract infection- Primary Recurrent UTI Urinary tract infection, site not specified [facility]* Diagnosis Major depressive disorder with single episode, in full remission (HCC) Chronic anxiety Anxiety state, unspecified [facility]* Diagnosis Unsteady gait- Primary Abnormality of gait Tremor of both hands 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) Hypothyroidism, unspecified type Hypertensive kidney disease with stage 3a chronic kidney disease (HCC) Stage 3a chronic kidney disease (HCC) [facility]* Diagnosis Injury of right forearm, initial encounter documented in this encounter [facility] for referral (narrative)* Diagnostic Procedure Only (Urgent) - Closed Specialty Diagnoses / Procedures Referred By Contac t Referred To Contact XR IMAGING Diagnoses Injury of right forearm, initial encounter Procedures XR FOREARM GENERAL 2V AP/LAT RIGHT RADEX FOREARM 2 VIEWS Marianna Valerio APRN.CNP [address] [place] [address] Xr Imaging [place] [address] Referral ID Status Reason Start Date Expiration Date V isits Requested Visits Authorized [id number] Closed Auto-Generate d Referral 05/16/2021 06/15/2022 1 1 [facility] for visit Narrative* Diagnostic Procedure Only (Urgent) - Closed Specialty Diagnoses / Procedures Referred By Contac t Referred To Contact XR IMAGING Diagnoses Injury of right forearm, initial encounter Procedures XR FOREARM GENERAL 2V AP/LAT RIGHT RADEX FOREARM 2 VIEWS Marianna Valerio APRN.CNP [address] [place] [address] [facility] [address] Referral ID Status Reason Start Date Expiration Date V isits Requested Visits Authorized [id number] Closed Auto-Generate d Referral 05/16/2021 06/15/2022 1 1 [facility] Advance Directives Documents on File Type Date Recorded Patient Animal Technician Expl anation Advance Directive(s) 07/31/2021 9:05 AM Documents on File Type Date Recorded Patient Animal Technician Expl anation Advance Directive(s) 07/31/2021 9:05 AM Reason for Referral Specialty Diagnoses / Procedures Referred By Contac t Referred To Contact Gastroenterology Diagnoses Microcytic anemia History of recent blood transfusion Procedures CONSULT TO GASTROENTEROLOGY OFFICE/OUTPATIENT [facility] 60-74 MINUTES Zoran Dumont PA-C [address] [place] [address] Referral ID Status Reason Start Date Expiration Date Visits Requested Visits Authorized [id number] Authorized PCP Requested Referral 11/13/2022 11/13/2023 1 1 Specialty Diagnoses / Procedures Referred By Contac t Referred To Contact Hematology Diagnoses Iron deficiency anemia, unspecified iron deficiency anemia type Procedures CONSULT TO HEMATOLOGY OFFICE/OUTPATIENT [facility] 60-74 MINUTES Zoran Dumont PA-C [address] [place] [address] Referral ID Status Reason Start Date Expiration Date Visits Requested Visits Authorized [id number] Authorized PCP Requested Referral 3 01/04/2024 1 1 Specialty Diagnoses / Procedures Referred By Contac t Referred To Contact Gerontology Diagnoses 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) Unsteady gait Procedures CONSULT TO GERIATRICS OFFICE/OUTPATIENT [facility] 60 MINUTES Shonda Tyler APRN.FORGING MACHINE HAND [address] [place] [address] Referral ID Status Reason Start Date Expiration Date Visits Requested Visits Authorized [id number] Authorized PCP Requested Referral 12/10/2023 12/09/2024 1 [...] or prosecute any alcohol or drug abuse patient.[facility] the event this information is protected by the Federal Confidentiality of Alcohol and Drug Abuse Patient Records regulations: The Federal rules restrict any use of the information to criminally investigate or prosecute any alcohol or drug abuse patient.[facility] the event this information is protected by the Federal Confidentiality of Alcohol and Drug Abuse Patient Records regulations: The Federal rules restrict any use of the information to criminally investigate or prosecute any alcohol or drug abuse patient.[facility] the event this information is protected by the Federal Confidentiality of Alcohol and Drug Abuse Patient Records regulations: The Federal rules restrict any use of the information to criminally investigate or prosecute any alcohol or drug abuse patient.[facility] the event this information is protected by the Federal Confidentiality of Alcohol and Drug Abuse Patient Records regulations: The Federal rules restrict any use of the information to criminally investigate or prosecute any alcohol or drug abuse patient.[facility] the event this information is protected by the Federal Confidentiality of Alcohol and Drug Abuse Patient Records regulations: The Federal rules restrict any use of the information to criminally investigate or prosecute any alcohol or drug abuse patient.[facility] the event this information is protected by the Federal Confidentiality of Alcohol and Drug Abuse Patient Records regulations: The Federal rules restrict any use of the information to criminally investigate or prosecute any alcohol or drug abuse patient.[facility] the event this information is protected by the Federal Confidentiality of Alcohol and Drug Abuse Patient Records regulations: The Federal rules restrict any use of the information to criminally investigate or prosecute any alcohol or drug abuse patient.[facility] the event this information is protected by the Federal Confidentiality of Alcohol and Drug Abuse Patient Records regulations: The Federal rules restrict any use of the information to criminally investigate or prosecute any alcohol or drug abuse patient.[facility] the event this information is protected by the Federal Confidentiality of Alcohol and Drug Abuse Patient Records regulations: The Federal rules restrict any use of the information to criminally investigate or prosecute any alcohol or drug abuse patient.[facility] the event this information is protected by the Federal Confidentiality of Alcohol and Drug Abuse Patient Records regulations: The Federal rules restrict any use of the information to criminally investigate or prosecute any alcohol or drug abuse patient.[facility] the event this information is protected by the Federal Confidentiality of Alcohol and Drug Abuse Patient Records regulations: The Federal rules restrict any use of the information to criminally investigate or prosecute any alcohol or drug abuse patient.[facility] the event this information is protected by the Federal Confidentiality of Alcohol and Drug Abuse Patient Records regulations: The Federal rules restrict any use of the information to criminally investigate or prosecute any alcohol or drug abuse patient.[facility] the event this information is protected by the Federal Confidentiality of Alcohol and Drug Abuse Patient Records regulations: The Federal rules restrict any use of the information to criminally investigate or prosecute any alcohol or drug abuse patient.[facility] HospitalIn the event this information is protected by the Federal Confidentiality of Alcohol and Drug Abuse Patient Records regulations: The Federal rules restrict any use of the information to criminally investigate or prosecute any alcohol or drug abuse patient.[facility] the event this information is protected by the Federal Confidentiality of Alcohol and Drug Abuse Patient Records regulations: The Federal rules restrict any use of the information to criminally investigate or prosecute any alcohol or drug abuse patient.[facility] HospitalIn the event this information is protected by the Federal Confidentiality of Alcohol and Drug Abuse Patient Records regulations: The Federal rules restrict any use of the information to criminally investigate or prosecute any alcohol or drug abuse patient.[facility] Hospital[facility] the event this information is protected by the Federal Confidentiality of Alcohol and Drug Abuse Patient Records regulations: The Federal rules restrict any use of the information to criminally investigate or prosecute any alcohol or drug abuse patient.[facility]In the event this information is protected by the Federal Confidentiality of Alcohol and Drug Abuse Patient Records regulations: The Federal rules restrict any use of the information to criminally investigate or prosecute any alcohol or drug abuse patient.[facility] HospitalIn the event this information is protected by the Federal Confidentiality of Alcohol and Drug Abuse Patient Records regulations: The Federal rules restrict any use of the information to criminally investigate or prosecute any alcohol or drug abuse patient.[facility] the event this information is protected by the Federal Confidentiality of Alcohol and Drug Abuse Patient Records regulations: The Federal rules restrict any use of the information to criminally investigate or prosecute any alcohol or drug abuse patient.[facility] HospitalIn the event this information is protected by the Federal Confidentiality of Alcohol and Drug Abuse Patient Records regulations: The Federal rules restrict any use of the information to criminally investigate or prosecute any alcohol or drug abuse patient.[facility] HospitalIn the event this information is protected by the Federal Confidentiality of Alcohol and Drug Abuse Patient Records regulations: The Federal rules restrict any use of the information to criminally investigate or prosecute any alcohol or drug abuse patient.[facility] HospitalIn the event this information is protected by the Federal Confidentiality of Alcohol and Drug Abuse Patient Records regulations: The Federal rules restrict any use of the information to criminally investigate or prosecute any alcohol or drug abuse patient.[facility]In the event this information is protected by the Federal Confidentiality of Alcohol and Drug Abuse Patient Records regulations: The Federal rules restrict any use of the information to criminally investigate or prosecute any alcohol or drug abuse patient.[facility] HospitalIn the event this information is protected by the Federal Confidentiality of Alcohol and Drug Abuse Patient Records regulations: The Federal rules restrict any use of the information to criminally investigate or prosecute any alcohol or drug abuse patient.[facility]In the event this information is protected by the Federal Confidentiality of Alcohol and Drug Abuse Patient Records regulations: The Federal rules restrict any use of the information to criminally investigate or prosecute any alcohol or drug abuse patient.[facility]In the event this information is protected by the Federal Confidentiality of Alcohol and Drug Abuse Patient Records regulations: The Federal rules restrict any use of the information to criminally investigate or prosecute any alcohol or drug abuse patient.[facility]In the event this information is protected by the Federal Confidentiality of Alcohol and Drug Abuse Patient Records regulations: The Federal rules restrict any use of the information to criminally investigate or prosecute any alcohol or drug abuse patient.[facility]In the event this information is protected by the Federal Confidentiality of Alcohol and Drug Abuse Patient Records regulations: The Federal rules restrict any use of the information to criminally investigate or prosecute any alcohol or drug abuse patient.[facility]In the event this information is protected by the Federal Confidentiality of Alcohol and Drug Abuse Patient Records regulations: The Federal rules restrict any use of the information to criminally investigate or prosecute any alcohol or drug abuse patient.[facility]In the event this information is protected by the Federal Confidentiality of Alcohol and Drug Abuse Patient Records regulations: The Federal rules restrict any use of the information to criminally investigate or prosecute any alcohol or drug abuse patient.[facility]In the event this information is protected by the Federal Confidentiality of Alcohol and Drug Abuse Patient Records regulations: The Federal rules restrict any use of the information to criminally investigate or prosecute any alcohol or drug abuse patient.[facility] HospitalIn the event this information is protected by the Federal Confidentiality of Alcohol and Drug Abuse Patient Records regulations: The Federal rules restrict any use of the information to criminally investigate or prosecute any alcohol or drug abuse patient.[facility] HospitalIn the event this information is protected by the Federal Confidentiality of Alcohol and Drug Abuse Patient Records regulations: The Federal rules restrict any use of the information to criminally investigate or prosecute any alcohol or drug abuse patient.[facility] HospitalIn the event this information is protected by the Federal Confidentiality of Alcohol and Drug Abuse Patient Records regulations: The Federal rules restrict any use of the information to criminally investigate or prosecute any alcohol or drug abuse patient.[facility] HospitalIn the event this information is protected by the Federal Confidentiality of Alcohol and Drug Abuse Patient Records regulations: The Federal rules restrict any use of the information to criminally investigate or prosecute any alcohol or drug abuse patient.[facility]In the event this information is protected by the Federal Confidentiality of Alcohol and Drug Abuse Patient Records regulations: The Federal rules restrict any use of the information to criminally investigate or prosecute any alcohol or drug abuse patient.[facility]In the event this information is protected by the Federal Confidentiality of Alcohol and Drug Abuse Patient Records regulations: The Federal rules restrict any use of the information to criminally investigate or prosecute any alcohol or drug abuse patient.[facility]In the event this information is protected by the Federal Confidentiality of Alcohol and Drug Abuse Patient Records regulations: The Federal rules restrict any use of the information to criminally investigate or prosecute any alcohol or drug abuse patient.[facility] HospitalIn the event this information is protected by the Federal Confidentiality of Alcohol and Drug Abuse Patient Records regulations: The Federal rules restrict any use of the information to criminally investigate or prosecute any alcohol or drug abuse patient.[facility] HospitalIn the event this information is protected by the Federal Confidentiality of Alcohol and Drug Abuse Patient Records regulations: The Federal rules restrict any use of the information to criminally investigate or prosecute any alcohol or drug abuse patient.[facility] HospitalIn the event this information is protected by the Federal Confidentiality of Alcohol and Drug Abuse Patient Records regulations: The Federal rules restrict any use of the information to criminally investigate or prosecute any alcohol or drug abuse patient.[facility] HospitalIn the event this information is protected by the Federal Confidentiality of Alcohol and Drug Abuse Patient Records regulations: The Federal rules restrict any use of the information to criminally investigate or prosecute any alcohol or drug abuse patient.[facility] Reason for Visit (unrecogniz ed section [...] iron [place] [address] [place] [address] Mauricio [facility] [address] [place] [address] Referral ID Status Reason Start Date Expiration Date V isits Requested Visits Authorized [id number] Authorized 01/25/2023 04/25/2023 99 99 Reason Comments New Patient Evaluation Specialty Diagnoses / Procedures Referred By Contac t Referred To Contact Hematology Diagnoses Iron deficiency anemia, unspecified iron deficiency anemia type Procedures CONSULT TO HEMATOLOGY OFFICE/OUTPATIENT NEW HIGH MDM 60-74 MINUTES Zoran Dumont PA-C [address] [place] [address] Referral ID Status Reason Start Date Expiration Date V isits Requested Visits Authorized [id number] Closed PCP Requested Referral 01/04/2023 01/04/2024 1 1 Reason Comments 1st Time Treatment (Non-Oncology) Reason Comments Recheck Follow up anemia Reason Comments Recheck 6 week follow up Reason Onset Date Comments Refill Request 08/13/2023 Reason Onset Date Comments Refill Request 10/04/2023 Reason Comments Recheck Not as steady on fee t, walking is more difficult Care Teams (unrecognized sec tion and content) Graphotype Operator Relationship Specialty Start Date End Date Ming Mcknight MD [address] [place] [address] PCP - General Internal Medicine 12/27/20 Graphotype Operator Relationship Specialty Start Date End Date Ming Mcknight MD [address] [place] [address] PCP - General Internal Medicine 12/27/20 Graphotype Operator Relationship Specialty Start Date End Date Ming Mcknight MD [address] [place] [address] PCP - General Internal Medicine 12/27/20 Graphotype Operator Relationship Specialty Start Date End Date Ming Mcknight MD [address] [place] [address] PCP - General Internal Medicine 12/27/20 Graphotype Operator Relationship Specialty Start Date End Date Ming Mcknight MD [address] [place] [address] PCP - General Internal Medicine 12/27/20 Graphotype Operator Relationship Specialty Start Date End Date Ming Mcknight MD [address] [place] [address] PCP - General Internal Medicine 12/27/20 Graphotype Operator Relationship Specialty Start Date End Date Ming Mcknight MD [address] [place] [address] PCP - General Internal Medicine 12/27/20 Graphotype Operator Relationship Specialty Start Date End Date Ming Mcknight MD [address] [place] [address] PCP - General Internal Medicine 12/27/20 Graphotype Operator Relationship Specialty Start Date End Date Ming Mcknight MD [address] [place] [address] PCP - General Internal Medicine 12/27/20 Graphotype Operator Relationship Specialty Start Date End Date Ming Mcknight MD [address] [facility] [place] [address] PCP - General Internal Medicine 12/27/20 Graphotype Operator Relationship Specialty Start Date End Date Ming Mcknight MD [address] [facility] [place] [address] PCP - General Internal Medicine 12/27/20 Graphotype Operator Relationship Specialty Start Date End Date Ming Mcknight MD [address] [facility] [place] [address] PCP - General Internal Medicine 12/27/20 Graphotype Operator Relationship Specialty Start Date End Date Ming Mcknight MD [address] [place] [address] PCP - General Internal Medicine 12/27/20 Graphotype Operator Relationship Specialty Start Date End Date Ming Mcknight MD [address] [facility] [place] [address] PCP - General Internal Medicine 12/27/20 Graphotype Operator Relationship Specialty Start Date End Date Ming Mcknight MD [address] [place] [address] PCP - General Internal Medicine 12/27/20 Graphotype Operator Relationship Specialty Start Date End Date Ming Mcknight MD [address] [place] [address] PCP - General Internal Medicine 12/27/20 Graphotype Operator Relationship Specialty Start Date End Date Ming Mcknight MD [address] [facility] [place] [address] PCP - General Internal Medicine 12/27/20 Graphotype Operator Relationship Specialty Start Date End Date Ming Mcknight MD [address] [facility] [place] [address] PCP - General Internal Medicine 12/27/20 Graphotype Operator Relationship Specialty Start Date End Date Ming Mcknight MD [address] [facility] [place] [address] PCP - General Internal Medicine 12/27/20 Graphotype Operator Relationship Specialty Start Date End Date Ming Mcknight MD [address] [facility] [place] [address] PCP - General Internal Medicine 12/27/20 Graphotype Operator Relationship Specialty Start Date End Date Ming Mcknight MD [address] [facility] [place] [address] PCP - General Internal Medicine 12/27/20 Graphotype Operator Relationship Specialty Start Date End Date Ming Mcknight MD [address] [place] [address] PCP - General Internal Medicine 12/27/20 Graphotype Operator Relationship Specialty Start Date End Date Ming Mcknight MD [address] [place] [address] PCP - General Internal Medicine 12/27/20 Stu Schaeffer MD [address] [facility] [place] [address] Hematology/Oncology 02/24/23 Graphotype Operator Relationship Specialty Start Date End Date Ming Mcknight MD [address] [place] [address] PCP - General Internal Medicine 12/27/20 Stu Schaeffer MD [address] [place] [address] Hematology/Oncology 02/24/23 Graphotype Operator Relationship Specialty Start Date End Date Ming Mcknight MD [address] [place] [address] PCP - General Internal Medicine 12/27/20 Stu Schaeffer MD [address] [place] [address] Hematology/Oncology 02/24/23 Graphotype Operator Relationship Specialty Start Date End Date Ming Mcknight MD [address] [place] [address] PCP - General Internal Medicine 12/27/20 Stu Schaeffer MD [address] [place] [address] Hematology/Oncology 02/24/23 Graphotype Operator Relationship Specialty Start Date End Date Ming Mcknight MD [address] [place] [address] PCP - General Internal Medicine 12/27/20 Stu Schaeffer MD [address] [place] [address] Hematology/Oncology 02/24/23 Graphotype Operator Relationship Specialty Start Date End Date Ming Mcknight MD [address] [place] [address] PCP - General Internal Medicine 12/27/20 Stu Schaeffer MD [address] [place] [address] Hematology/Oncology 02/24/23 Graphotype Operator Relationship Specialty Start Date End Date Ming Mcknight MD [address] [place] [address] PCP - General Internal Medicine 12/27/20 Stu Schaeffer MD [address] [place] [address] Hematology/Oncology 02/24/23 Graphotype Operator Relationship Specialty Start Date End Date Ming Mcknight MD [address] [place] [address] PCP - General Internal Medicine 12/27/20 Stu Schaeffer MD [address] [place] [address] Hematology/Oncology 02/24/23 Graphotype Operator Relationship Specialty Start Date End Date Ming Mcknight MD [address] [place] [address] PCP - General Internal Medicine 12/27/20 Graphotype Operator Relationship Specialty Start Date End Date Ming Mcknight MD [address] [place] [address] PCP - General Internal Medicine 12/27/20 Stu Schaeffer MD [address] [place] [address] Hematology/Oncology 02/24/23 INFORMATION SOURCE (unrecogn ized section and content) DATE CREATED AUTHOR 12/26/2023 [facility] FOR RECORDS PERTAINING TO PATIENTS WHO [...] BE BASED ON THE PRIMARY CLINICAL RECORDS. [employer] provides no warranty or guarantee of the accuracy or completeness of information in this document.
[2024-01-14 19:19] LABS: Hemoglobin A1c 5.3 % (3.8-5.6)
--- NOTE | 2024-01-14 21:15 | CPS ---
Pt has dementia. As she was being awakened to place pulse ox probe on finger she became very angry and out of control telling me to leave right now and tried to get out of bed on her own. Nursing along with nurses aides came into assist to try and calm her down. Continuous pulse ox monitor and probe left at bedside in case pt decides to allow nursing to place on her finger for the night.
[2024-01-14] MEDS: hydrOXYzine 50 MG/ML Vial 100 MG IM (21:45)
[2024-01-15] VITALS (7 sets, daily range): BP systolic 124–170; BP diastolic 68–109; PULSE 68–87; RESP 16–18; TEMP 36.1–36.7; O2SAT 93–100
[2024-01-15] MEDS: Haloperidol Lactate 5 MG/ML Vial 2 MG IM (00:26)
[2024-01-15] MEDS: LORazepam 2 MG/ML Syringe 0.5 MG IV (01:13)
[2024-01-15 04:57] LABS: Absolute Lymphocyte Count 1.31 X10^3/uL (0.83-4.51); Basophil# 0.02 X10^3/uL; Basophil% 0.2 % (0-1); Eosinophil# 0.09 X10^3/uL; Eosinophils% 0.9 % (0-5); Hematocrit 26.6 % (37-47); Hemoglobin 7.6 g/dL (12.0-15.0); Lymphocyte # 1.31 X10^3/ul (0.83-4.51); Mean Corp Hgb Conc 28.6 g/dL (32-36); Mean Corpuscular Hgb 20.4 pg (27.0-32.0); Mean Corpuscular Volume 71.5 fL (81-99); Monocyte# 0.62 X10^3/uL; Monocyte% 6.2 % (0-10); NRBC Flagged by Analyzer 0 % (0-5); Neutrophil # 7.96 X10^3/uL (2.7-7.7); Neutrophil % 79.3 % (47-70); POSITIVE MORPHOLOGY YES; Platelet Count 132 K/mm3 (150-450); RBC Distribution Width CV 22.8 % (11.6-14.6); Red Blood Count 3.72 M/mm3 (4.2-5.4)
[2024-01-15 05:42] LABS: Differential Indicated SCAN CRITERIA MET
[2024-01-15] MEDS: Levothyroxine 50 MCG Tablet PO (05:50)
[2024-01-15 06:43] LABS: Anisocytosis 1+
[2024-01-15 07:14] LABS: AST(SGOT) 14 U/L (15-37); Alanine Aminotransfer ALT/SGPT 11 U/L (13-56); Albumin, Serum 2.9 g/dL (3.2-5.0); Alkaline Phosphatase 80 U/L (45-117); Anion Gap 4 (5-15); BUN 21 mg/dL (7-18); BUN/Creat Ratio 17.5 RATIO (10-20); Calcium,Total 8.6 mg/dL (8.5-10.1); Chloride 115 mmol/L (98-107); Cholesterol 151 mg/dL (200); EST Glomerular Filtration Rate 45 mL/min (>60); Est Glom Filt Rate - Afr Amer 55 mL/min (>60); Estimated Creatinine Clearance 24.82 ml/min; Glucose 91 mg/dL (74-106); High Density Lipoprotein 67 mg/dL; Potassium 3.7 mmol/L (3.5-5.1); Protein, Total 5.9 g/dL (6.4-8.2); Sodium Level 143 mmol/L (136-145); Triglycerides 115 mg/dL; Very Low Density Lipoprotein 23 mg/dL (5-40)
--- NOTE | 2024-01-15 07:38 | PN.HOSP_ITS ---
Reason for Visit Reason for Visit: Diagnoses Other symptoms and signs involving the nervous system (01/14/24) Subjective Subjective Still confused. Objective Data Objective Data Vital Signs: Vital Signs Temp Pulse Resp BP Pulse Ox O2 Del Method 36.3 C L 82 18 132/75 H 96 Room Air 01/15/24 05:45 01/15/24 05:45 01/15/24 05:45 01/15/24 05:45 01/15/24 05:45 01/15/24 05:45 Oxygen Delivery Method Room Air Weight: 47.6 kg Body Mass Index (BMI) 16.4 Intake & Output: Intake and Output for Last 24 Hours 01/13/24 01/14/24 01/15/24 23:59 23:59 23:59 Intake Total 170 / 170 Balance 170 / 170 Lab / Micro Data 01/15/24 04:40 01/15/24 04:40 Labs: Laboratory Results - last 24 hr 01/14/24 14:30: WBC 9.1, RBC 4.02 L, Hgb 8.3 L, Hct 29.4 L, MCV 73.1 L, MCH 20.6 L, MCHC 28.2 L, RDW Std Deviation 60.0 H, RDW Coeff of Sol 22.9 H, Plt Count 133 L, MPV TNP, Immature Gran % (Auto) 0.400, Neut % (Auto) 81.9 H, Lymph % (Auto) 9.2 L, Charles % (Auto) 7.3, Eos % (Auto) 0.9, Baso % (Auto) 0.3, Absolute Neuts (auto) 7.5, Absolute Lymphs (auto) 0.84, Nucleated RBC % 0, Platelet Estimate SLT DEC, Hypochromasia 1+, Anisocytosis 2+, Tear Drop Cells RARE, PT 13.9, INR 1.1, APTT 21.7 L, Sodium 141, Potassium 3.8, Chloride 112 H, Carbon Dioxide 24.0, Anion Gap 5, BUN 18, Creatinine 1.24 H, Estim Creat Clear Calc 24.73, Est GFR (MDRD) Af Amer 53 L, Est GFR (MDRD) Non-Af 44 L, BUN/Creatinine Ratio 14.5, Glucose 106, Hemoglobin A1c 5.3, Calcium 8.5, Troponin I High Sens 12 01/14/24 15:03: POC Glucose 105 10/26/24 04:40: WBC 10.0, RBC 3.72 L, Hgb 7.6 L, Hct 26.6 L, MCV 71.5 L, MCH 20.4 L, MCHC 28.6 L, RDW Std Deviation 59.0 H, RDW Coeff of Sol 22.8 H, Plt Count 132 L, MPV TNP, Immature Gran % (Auto) 0.400, Neut % (Auto) 79.3 H, Lymph % (Auto) 13.0 L, Charles % (Auto) 6.2, Eos % (Auto) 0.9, Baso % (Auto) 0.2, A bsolute Neuts (auto) 8.0 H, Absolute Lymphs (auto) 1.31, Nucleated RBC % 0, Anisocytosis 1+, Sodium 143, Potassium 3.7, Chloride 115 H, Carbon Dioxide 24.0, Anion Gap 4 L, BUN 21 H, Creatinine 1.20 H, Estim Creat Clear Calc 24.82, Est GFR (MDRD) Af Amer 55 L, Est GFR (MDRD) Non-Af 45 L, BUN/Creatinine Ratio 17.5, Glucose 91, Calcium 8.6, Magnesium 2.0, Total Bilirubin 0.40, AST 14 L, ALT 11 L , Alkaline Phosphatase 80, Total Protein 5.9 L, Albumin 2.9 L, Globulin 3.0, Albumin/Globulin Ratio 1.0, Triglycerides 115, Cholesterol 151, LDL Cholesterol 61, VLDL Cholesterol 23, HDL Cholesterol 67, TSH 6.130 H Radiography Diagnostic Testing: Radiology Impression Brain CT 01/14/24 15:05 IMPRESSION: Normal unenhanced CT scan of the brain. N.B. : The above Results were Read Back by Herbie Tolbert MD to Maikol Palmer and understanding confirmed on 01/14/2024 15:21:11 (ET). Electronically Signed: Herbie Tolbert MD at 15:22 EDT , ADDENDUM: 01/14/24 1529 IMPRESSION: Normal unenhanced CT scan of the brain. N.B. : The above Results were Read Back by Herbie Tolbert MD to Maikol Palmer and understanding confirmed on 01/14/2024 15:21:11 (ET). Electronically Signed: Herbie Tolbert MD at 15:22 EDT , Head/Neck CTA 01/14/24 15:05 IMPRESSION: 1. Mild atherosclerotic calcifications of the cavernous internal carotid arteries with mild narrowing of the right side. 2. No evidence of significant intracranial great vessel stenosis. 3. Mild atherosclerotic calcifications of the common and internal carotid arteries without significant stenosis. 4. Patent bilateral vertebral arteries with dominant right side. N.B. : The above Results were Read Back by Devaughn Ames MD to Maikol Palmer MD, and understanding confirmed on 01/14/2024 15:36:44 (ET). Electronically Signed: Devaughn Ames MD at 15:38 EDT , ADDENDUM: 01/14/24 1545 IMPRESSION: 1. Mild atherosclerotic calcifications of the cavernous internal carotid arteries with mild narrowing of the right side. 2. No evidence of significant intracranial great vessel stenosis. 3. Mild atherosclerotic calcifications of the common and internal carotid arteries without significant stenosis. 4. Patent bilateral vertebral arteries with dominant right side. N.B. : The above Results were Read Back by Devaughn Ames MD to Maikol Palmer MD, and understanding confirmed on 01/14/2024 15:36:44 (ET). Electronically Signed: Devaughn Ames MD at 15:38 EDT , Chest X-Ray 01/14/24 15:35 IMPRESSION: No radiographic evidence of acute cardiopulmonary disease. Electronically Signed: Devaughn Ames MD at 15:47 EDT , Physical Exam Const alert and no apparent distress Constitutional Narrative: a and o to self only. able to tell me her name. HEENT head/scalp atraumatic and moist oral mucous membranes Resp normal respiratory effort, no retractions, no use of accessory muscles and clear to auscultation bilaterally Cardio regular rate, regular rhythm, S1 normal heart sound and S2 normal heart sound GI normal to inspection, nondistended, normoactive bowel sounds, soft to palpation, non-tender and non-distended Neuro Sensorium / Orientation: awake and alert Assessment & Plan Assessment/Plan (1) Neurologic abnormality: PLAN: Plan Change in mental status/staring spell and abnormal speech * last known normal 1430 on 01/13. Not felt to be candidate for TNK. Concern was for CVA v complex szr. * head CT, CTA head and neck negative. * MRI brain negative for any acute process, though does show marked atrophy. No additional stroke work up per neurology. DC ASA and statin since no CVA. * EEG, pending (Neuro advising holding any antiepileptic medications at this time) * Check UA, UCx * PT OT ST eval iron-deficiency anemia * iron, ferritin low * TSH elevated, check FT4. Check B12, folate * IV iron * outpt GI evaluation Chronic conditions: * CKD stage IIIb: stable post IV contrast. * Hypothyroidism: continue levothyroxine. Elevated TSH. Check FT4. * Depression/anxiety: sertraline * Hypertension: lisinopril on hold 24 post CVA to allow permissive HTN. Resume 01/15. * Alzheimer's disease: complicates care and recovery. Continue rivastigmine. VTE prophylaxis: SCDs. Charges/Coding Visit Charges Inpatient E&M: 87287 Subs Hosp L2
--- NOTE | 2024-01-15 07:39 | NURSING ---
pt. explained that she was tired and ready to go to sleep around 2030. @ this time,This nurse assisted pt. to cover up with blankets and position herself in a comfortable position. Pt. denied any further needs. When this nurse reentered room around 2100 to attempt to give pt. medications and ensure that she was ok, pt. began yelling and stating i'm not taking any damn thing, now get out of here and go to sleep! Pt. soon after began yelling and swinging arms at respiratory therapist when they went into room to attempt to put continous pulse ox on pt. Pt. then began continously trying to climb over side rails of the bed and walk out into hallway. When staff attempted to help pt., pt. attempted to hit, scratch, and bite staff and was yelling very loudly. Pt. was unable to be reoriented. Pt. refused food, drinks, alternative seating, restroom needs. Dr. Oliver was notified of this and pt.'s confusion/ Dx. of dementia- drMina ordered 1x dose of vistaril 100 mg IM. Vistaril was given, but pt. continued to yell, attempt to hit, scratch, and bite staff. Pt. unsteady on her feet, stumbling and falling against felix and objects in room. Pt. also began punching window in room. While staff attempted to steady pt. after she stumbled while walking, pt. pulled arms away and began hitting arms on surrounding objects, leading to a skin tear on both her left and right forearm. Advised Dr. Oliver of continuing aggression from pt. Dr. Oliver then ordered Haldol 2 mg IM x1 dose. This was given. This nurse, 3 other nurses, nurse cell room supervisor and Dr. Oliver spent significant time in room with pt. attempting to reorient pt. and explain the need to remain safe, but pt. continued to yell and attempt to hit and kick staff and denied any food, drink, restroom, and alternative needs offered. Skin tears were cleaned and dressed as well as pt. allowed, but pt. removed dressings shortly after. Pt. also continued to try and crawl out of bed over side rail. Dr. Oliver gave [id number] order for 1x dose 0.5 mg ativan IV. This was administered and after approx. 30 minutes, pt. appeared to calm down and stopped trying to hit at staff. Pt. fell asleep shortly after and sitter was called to sit with pt. once available. Approx. 0545, pt. was awoke to do NIHs and appeared much more calm, following commands and allowing brief to be changed without conflict. Pt. stated she needed to go to the restroom. Staff assisted her to the restroom and back to bed without conflict. Pt. appeared to go back to sleep after this.
--- NOTE | 2024-01-15 08:20 | CASEMGMT ---
Social Work Power of managing attorney for Healthcare in chart, with living will provision initialed. Pt's granddaughter, Suzy Sorenson is listed as healthcare POA. ЮЛИЯ Traore
--- NOTE | 2024-01-15 08:29 | CASEMGMT ---
Social Work PHQ-9 not completed as pt has Alzheimer's dementia, having increased confusion at this time. ЮЛИЯ Traore
--- NOTE | 2024-01-15 09:00 | MRI_ITS ---
STUDY: MRI BRAIN WITHOUT CONTRAST REASON FOR EXAM: Female, 88 years old. tia/cva r/o ALTERED MENTAL STATUS, DIFFICULTY SPEAKING, HX ALZHEIMERS TECHNIQUE: Standardized multiplanar fat and water weighted pulse sequences were obtained. COMPARISON: Head CT dated January 14, 2024 FINDINGS: There is moderate cerebral atrophy with widening of the extra-axial spaces and ventricular dilatation. There are multiple white matter hyperintensities, distributed throughout the deep white matter tracts of the cerebral hemispheres, consistent with moderate chronic white matter ischemic changes. There is no evidence for recent intracranial ischemia or other cause of cytotoxic edema on diffusion weighted imaging (DWI). Normal T2* images of the brain without demonstrated susceptibility artifact. There is no demonstrated hemosiderin stain. Normal bilateral frontal poles, and orbital frontal and gyrus recti of the frontal lobes. Normal bilateral temporal tips of the temporal lobes. There are no white matter shear injuries (diffuse axonal injuries). There are no parenchymal hemorrhages or hematomas. There are no findings to suggest prior closed head parenchymal injury of the brain. No hydrocephalus or midline shift is present. Normal bilateral basal ganglia. Normal thalami. There is no extra-axial fluid accumulation. Normal flow voids within the major intracranial circulation suggesting patency by spin echo criteria. Normal sella turcica, pituitary gland, infundibular stalk, optic chiasm and hypothalamus. Normal tectal plate and pineal gland. Normal midbrain, debby and medulla. Normal cerebellum. Normal basal cisterns. Normal bilateral temporal bones. Normal bilateral internal auditory canals. No demonstrated orbital abnormality, within the constraints of a routine brain study. Normal visualized paranasal sinuses. Normal calvarium and skull base. Normal visualized soft tissue structures. Normal visualized upper cervical spine. MRI/Brain without Contrast IMPRESSION: 1. Involutional changes of the brain, as described above. 2. No acute infarct or intracranial hemorrhage Electronically Signed: Jerel Pop MD at 11:46 EDT ,
[2024-01-15 09:03] LABS: Ferritin 24 ng/mL (8-252); Iron 15 ug/dL (50-170); Iron Binding Capacity,Total 336 ug/dL (250-450); PERCENT IRON SATURATION 4.5 % (15.0-55.0); T4 Free Direct 0.79 ng/dL (0.76-1.46)
--- NOTE | 2024-01-15 09:10 | NURSING ---
This RN is taking over care at this time.
--- NOTE | 2024-01-15 10:26 | CASEMGMT ---
Social Work Pt is not alert and oriented at this time. LILO called pt's granddaughter Suzy to review prior level of function and anticipated discharge plan. PCP: Dr. Sayda Peace or her CULTURAL HISTORIAN Shonda Tyler Specialists: None Pharmacy: [facility] LW/POA: Pt has POA papers on file, w/living will provision initialed. Pt's granddaughter Suzy is POA, daughter Jillian is the alternate. As per Suzy, she and Jillian are co-POAs. LNOK: Granddaughter Suzy, Daughters Jillian and Paige. Paige lives across the street from pt. Living arrangements/Prior level of function: Pt lives alone, daughter Paige lives across the street. Paige is in and out of pt's home all day helping her. Paige gets pt's meals, manages her medications, gets her to appointments, does the housecleaning, supervises showers, prompts her for dressing. Pt can get to the restroom on her own. She states pt does fine at night, once she goes to bed she stays in bed for the most part all night. She states pt has gotten up before and walked across the street to Paige's house when she needed something. DME: Pt does not use any DME SNF/HHC: Pt has never been to SNF in the past. Pt has no additional help at home other than family. Plan: TBD, likely home. As per Suzy, pt is managing at home with the support of family. She states she normally gets around fine. They brought pt to the ED as she was having trouble speaking, walking. as per Suzy, within an hour of being in the ED pt was back to her baseline. LILO spoke w/Suzy about rehab possibly, and the Medicare 3 midnight rule for SNF. LILO explained to Suzy pt is observation so would not qualify under Medicare for SNF and it would be private pay or we could look into applying for Medicaid. As per granddaughter, they would not be able to afford to pay privately for SNF, so if it was needed, LILO explained we would assist w/applying for Medicaid. Suzy does state however that they can provide 24 hour care for pt should it be needed at discharge. PT/OT are pending, these evaluations will be reviewed to help determine the appropriate discharge plan. Suzy states that she will be going to [place] today, so after this she states to contact Jillian for any concerns. She states she will be back early next week. LILO will continue to follow for discharge planning needs. ЮЛИЯ Traore
--- NOTE | 2024-01-15 11:30 | NURSING ---
Sitter removed from room.
--- NOTE | 2024-01-15 12:00 | CASEMGMT ---
Met with pt to complete WHITT form. Pt is currently disoriented and unable to complete the WHITT form accordingly. TC to pt Suzy JOHNSON (KINGS) at this time. WHITT form explained to pt KINGS at this time who voiced understanding and gives this KEYONNA MCPHERSON verbal consent to sign the form. Original form placed in pt?s chart and copy provided to the pt room. Luis Eduardo Casillas RN, CM
[2024-01-15] MEDS: Rivastigmine Tartrate 1.5 MG Capsule 3 MG PO ×2 (12:33→21:16)
[2024-01-15] MEDS: Sertraline 50 MG Tablet PO (12:33)
--- NOTE | 2024-01-15 12:35 | PN.NEURO_ITS ---
Objective Data Objective Data Vital Signs: Vital Signs Temp Pulse Resp BP Pulse Ox O2 Del Method 97.6 F L 72 16 140/74 H 98 Room Air 01/15/24 12:31 01/15/24 12:31 01/15/24 12:31 01/15/24 12:31 01/15/24 12:31 01/15/24 12:31 Oxygen Delivery Method Room Air Weight: 47.6 kg Body Mass Index (BMI) 16.4 Intake & Output: Intake and Output for Last 24 Hours 01/13/24 01/14/24 01/15/24 23:59 23:59 23:59 Intake Total 170 / 170 Balance 170 / 170 Lab / Micro Data 01/15/24 04:40 01/15/24 04:40 Labs: Laboratory Results - last 24 hr 01/14/24 14:30: WBC 9.1, RBC 4.02 L, Hgb 8.3 L, Hct 29.4 L, MCV 73.1 L, MCH 20.6 L, MCHC 28.2 L, RDW Std Deviation 60.0 H, RDW Coeff of Sol 22.9 H, Plt Count 133 L, MPV TNP, Immature Gran % (Auto) 0.400, Neut % (Auto) 81.9 H, Lymph % (Auto) 9.2 L, Archuleta % (Auto) 7.3, Eos % (Auto) 0.9, Baso % (Auto) 0.3, Absolute Neuts (auto) 7.5, Absolute Lymphs (auto) 0.84, Nucleated RBC % 0, Platelet Estimate SLT DEC, Hypochromasia 1+, Anisocytosis 2+, Tear Drop Cells RARE, PT 13.9, INR 1.1, APTT 21.7 L, Sodium 141, Potassium 3.8, Chloride 112 H, Carbon Dioxide 24.0, Anion Gap 5, BUN 18, Creatinine 1.24 H, Estim Creat Clear Calc 24.73, Est GFR (MDRD) Af Amer 53 L, Est GFR (MDRD) Non-Af 44 L, BUN/Creatinine Ratio 14.5, Glucose 106, Hemoglobin A1c 5.3, Calcium 8.5, Troponin I High Sens 12 01/14/24 15:03: POC Glucose 105 01/15/24 04:40: WBC 10.0, RBC 3.72 L, Hgb 7.6 L, Hct 26.6 L, MCV 71.5 L, MCH 20.4 L, MCHC 28.6 L, RDW Std Deviation 59.0 H, RDW Coeff of Sol 22.8 H, Plt Count 132 L, MPV TNP, Immature Gran % (Auto) 0.400, Neut % (Auto) 79.3 H, Lymph % (Auto) 13.0 L, Archuleta % (Auto) 6.2, Eos % (Auto) 0.9, Baso % (Auto) 0.2, A bsolute Neuts (auto) 8.0 H, Absolute Lymphs (auto) 1.31, Nucleated RBC % 0, Anisocytosis 1+, Sodium 143, Potassium 3.7, Chloride 115 H, Carbon Dioxide 24.0, Anion Gap 4 L, BUN 21 H, Creatinine 1.20 H, Estim Creat Clear Calc 24.82, Est GFR (MDRD) Af Amer 55 L, Est GFR (MDRD) Non-Af 45 L, BUN/Creatinine Ratio 17.5, Glucose 91, Calcium 8.6, Magnesium 2.0, Iron 15 L, TIBC 336, Iron Saturation 4.5 L, Ferritin 24, Total Bilirubin 0.40, AST 14 L, ALT 11 L, Alkaline Phosphatase 80, Total Protein 5.9 L, Albumin 2.9 L, Globulin 3.0, Albumin/Globulin Ratio 1.0, Triglycerides 115, Cholesterol 151, LDL Cholesterol 61, VLDL Cholesterol 23, HDL Cholesterol 67, Folate 10.60, TSH 6.130 H, Free T4 0.79 Radiography Diagnostic Testing: Radiology Impression Brain CT 01/14/24 15:05 IMPRESSION: Normal unenhanced CT scan of the brain. N.B. : The above Results were Read Back by Herbie Tolbert MD to Maikol Palmer and understanding confirmed on 01/14/2024 15:21:11 (ET). Electronically Signed: Herbie Tolbert MD at 15:22 EDT , ADDENDUM: 01/14/24 1529 IMPRESSION: Normal unenhanced CT scan of the brain. N.B. : The above Results were Read Back by Herbie Tolbert MD to Maikol Palmer and understanding confirmed on 01/14/2024 15:21:11 (ET). Electronically Signed: Herbie Tolbert MD at 15:22 EDT , Head/Neck CTA 01/14/24 15:05 IMPRESSION: 1. Mild atherosclerotic calcifications of the cavernous internal carotid arteries with mild narrowing of the right side. 2. No evidence of significant intracranial great vessel stenosis. 3. Mild atherosclerotic calcifications of the common and internal carotid arteries without significant stenosis. 4. Patent bilateral vertebral arteries with dominant right side. N.B. : The above Results were Read Back by Devaughn Ames MD to Maikol Palmer MD, and understanding confirmed on 01/14/2024 15:36:44 (ET). Electronically Signed: Devaughn Ames MD at 15:38 EDT , ADDENDUM: 01/14/24 1545 IMPRESSION: 1. Mild atherosclerotic calcifications of the cavernous internal carotid arteries with mild narrowing of the right side. 2. No evidence of significant intracranial great vessel stenosis. 3. Mild atherosclerotic calcifications of the common and internal carotid arteries without significant stenosis. 4. Patent bilateral vertebral arteries with dominant right side. N.B. : The above Results were Read Back by Devaughn Ames MD to Maikol Palmer MD, and understanding confirmed on 01/14/2024 15:36:44 (ET). Electronically Signed: Devaughn Ames MD at 15:38 EDT , Chest X-Ray 01/14/24 15:35 IMPRESSION: No radiographic evidence of acute cardiopulmonary disease. Electronically Signed: Devaughn Ames MD at 15:47 EDT , Echocardiogram 01/14/24 18:25 Interpretation Summary The estimated ejection fraction is 55-60 %. Difficult to comment on Buble studies Ordering Physician: Chelsi Mejia Referring Physician: Sayda Peace Performed By: Tennille Fiore, RDCS, RVT Brain MRI 01/15/24 09:00 IMPRESSION: 1. Involutional changes of the brain, as described above. 2. No acute infarct or intracranial hemorrhage Electronically Signed: Jerel Pop MD at 11:46 EDT , Physical Exam Neuro Neuro Narrative: Neurological?examination: General: The patient appears nutritionally appropriate, well-groomed, and appears comfortable in no acute distress. Mental Status: ?The patient?s mental status shows confusion. Language was intact. ?Cranial nerves: ?No visual complains, and extra-ocular motion was intact. Face motion symmetric. Tongue was midline with normal movement. ?There was no dysarthria. Motor: Anti-graivty in all four extremities. No pronator drift. Sensation: Deferred. ?Coordination: ?Bilateral finger to nose was normal. ?There was no dysmetria. Gait: ?deferred Subject: Neurology Subjective Patient responds to questions with I cant remember or I dont know . She is only able to say her name. She is on asa/lipitor 40. Assessment and Plan: Stroke Assessment/Plan NITHIN KRISHNAN is a 88 F ex-smoker with a history of Alzheimers dementia, HTN, and hypothyroidism who presents for evaluation of mental statu changes. On 01/14/24 at 230p family reports she slumped ni her recliner and was confused. She needed assist to walk to the car due to generalized weakness. She presented to [place] [facility]. CT brain negative. CTA head/neck shows mild athero, otherwise negative. Intial NIHSS in ER for telestroke was 2. She was admitted. MRI brain DWI negative. LDL 61. Neurological examination shows confusion, otherwise nonfocal exam, NIHSS-3 (?-2, aphas-1). ASSESSMENT/PLAN: Acute encephalopathy superimposed upon dementia 1) Stroke ruled out with negative MRI Brain DWI. No further stroke work-up recommend. Stop Asa/Lipitor if these are not home meds 2) Recommend encephalopathy work-up (Rule out UTI, etc) 3) Please call us with any further stroke related questions. Primary team messaged with recommendations on backline.
--- NOTE | 2024-01-15 13:16 | CASEMGMT ---
Social Work Pt's daughter Jillian in room, SW spoke w/her in the room. PT/OT just finishing up, states pt a little unsteady but otherwise is moving fine. SW spoke w/Jillian about discharge plan. She confirms that she and daughter Paige can provide 24 hour care for pt, Jillian at night and Paige during the day. SW spoke w/Jillian about home health care, she declined referral at this time. Plan will be for pt to return home at discharge, family declining SNF and HHC. ЮЛИЯ Traore
--- OUTSIDE RECORDS SUMMARY | 2024-01-15 13:50 | XMS RPT_ITS | CCD ---
Author Organization [facility] Care Team Providers Care Safety Engineer Name Role Phone Nata WILKS, Ming Primary Care Provider [phone] Nata WILKS, Ming Primary Care Provider Cary WILKS, Stu Unavailable Nata WILKS, Ming Primary Care Provider STU SCHAEFFER Referring Unavailable GANTA, MING Primary Care Unavailable SAMIAAMSTU MONTANO Attending Unavailable ZORAN DUMONT Referring Unavailable GANTA, MING Primary Care Unavailable GANTA, MING Primary Care Unavailable ABRAMSTU MONTANO Referring Unavailable ABRAMOVICHSTU Referring Unavailable GANTA, MING Primary Care Unavailable [...] Amoxicillin / Clavulanate Drug Allergy 11-11-2012 Diarrhea [facility] Work Phone: donepezil (1 source) donepezil Drug Allergy 04-26-2023 Itching [facility] Quinolones (antibiotic) (2 sources) Ciprofloxacin Drug Allergy 07-18-2010 Rash [facility] (20 sources) Amoxicillin / Clavulanate; Translations: [AMOXICILLIN-POT CLAVULANATE] Drug Allergy 11-11-2012 Diarrhea [facility] Work Phone: (20 sources) Ciprofloxacin; Translations: [CIPROFLOXACIN] Drug Allergy 07-18-2010 Rash [facility] (20 sources) levoFLOXacin; Translations: [LEVOFLOXACIN] Drug Allergy 04-24-2013 Rash [facility] (13 sources) donepezil; Translations: [DONEPEZIL] Drug Allergy 04-26-2023 Itching [facility] Work Phone: Medications Current Medications Medication Drug [...] on above: Take 1 capsule by [facility] twice daily for 7 days. doxycycline hyclate [...] Comment on above: Take 1 tablet by [facility] two times a day for 5 days. Completed/Discontinued Medications Medication Drug Class(es) Dates Sig (Normalized) Sig (Original) oxyquinoline sulfate 0.43622 mg/mg / sodium dodecyl sulfate 0.0001 mg/mg [...] Comment on above: Take 1 tablet by [facility] once daily. magnesium oxide 200 mg oral [...] Test Name Value Interpretation Reference Range Facility [facility] 12-24-2023 [facility] Telephone (INTMWS) AINSLEY SORENSON ([id number]) 1935 F Date Time Provider Department 12/24/23 [facility] During your visit today, we recorded the following information about you: Isatu Moreno LPN 12/24/2023 3:59 PM Signed ----- Message from Ming Mcknight MD sent at 12/24/2023 2:33 PM EDT ----- Hb is a little improved from the last time Ming Vargas MD, Mary, LPN 12/24/2023 3:59 PM Signed Updated via Simple Admit Isatu Moreno LPN December 24, 2023 3:59 PM Allergies As of Date: 12/24/2023 Noted Allergy Reaction ARICEPT (DONEPEZIL) 04/26/2023 9 - Itching AUGMENTIN (AMOXICILLIN-POT CLAVUL*11/11/2012 6 - Diarrhea CIPROFLOXACIN 07/18/2010 2 - Rash LEVAQUIN (LEVOFLOXACIN) 04/24/2013 2 - Rash Comments: itching rash Date Reviewed: 12/10/2023 Reviewed by: Shonda Tyler APRN.[employer] - Fully Assessed Reason for Visit: Results [...] Status:Closed by ISATU MORENO on 12/24/23 Normal [facility] CBC W Auto Differential pane l (Bld)on 12-17-2023 Basophils (Bld) [#/Vol] 0.04 10*3/uL Normal <0.11 [facility] Comment on above: Order Comment: Speci men Type: BLOOD SPECIMENOrdering Facility: [facility] Address: [address] [place] [address] Performed By: #### 5 7021-8 ####[facility] LABIA [id number] [place] [address] [place] Basophils/100 WBC (Bld) 0.3 % Normal [facility] Comment on above: Order Comment: Speci men Type: BLOOD SPECIMENOrdering Facility: [facility] Address: [address] [place] [address] Performed By: #### 5 7021-8 ####[facility]IA [id number] [place] [address] [place] Differential cell count method Nom (Bld) Auto Normal [facility] Comment on above: Order Comment: Speci men Type: BLOOD SPECIMENOrdering Facility: [facility] Address: [address] [place] [address] Performed By: #### 5 7021-8 ####[facility] LABCLIA [id number] [place] [address] [place] Eosinophils (Bld) [#/Vol] 0.07 10*3/uL Normal <0.46 [facility] Comment on above: Order Comment: Speci men Type: BLOOD SPECIMENOrdering Facility: [facility] Address: [address] [place] [address] Performed By: #### 5 7021-8 ####[facility] LABCLIA [id number] [place] [address] [place] Eosinophils/100 WBC (Bld) 0.5 % Normal [facility] Comment on above: Order Comment: Speci men Type: BLOOD SPECIMENOrdering Facility: [facility] Address: [address] [place] [address] Performed By: #### 5 7021-8 ####[facility]IA [id number] [place] [address] [place] Erythrocyte distribution width (RBC) [Ratio] 22.7 % High 11.5-15.0 [facility] Comment on above: Order Comment: Speci men Type: BLOOD SPECIMENOrdering Facility: [facility] Address: [address] [place] [address] Performed By: #### 5 7021-8 ####[facility]IA [id number] [place] [address] [place] Hematocrit (Bld) [Volume fraction] 31.5 % Low 36.0-46.0 [facility] Comment on above: Order Comment: Speci men Type: BLOOD SPECIMENOrdering Facility: [facility] Address: [address] [place] [address] Performed By: #### 5 7021-8 ####[facility] LABCLIA [id number] [place] [address] [place] Hemoglobin (Bld) [Mass/Vol] 8.8 g/dL Low 11.5-15.5 [facility] Comment on above: Order Comment: Speci men Type: BLOOD SPECIMENOrdering Facility: [facility] Address: [address] [place] [address] Performed By: #### 5 7021-8 ####[facility] LABCLIA [id number] [place] [address] [place] Immature granulocytes (Bld) [#/Vol] 0.10 10*3/uL High <0.10 [facility] Comment on above: Order Comment: Speci men Type: BLOOD SPECIMENOrdering Facility: [facility] Address: [address] [place] [address] Performed By: #### 5 7021-8 ####[facility] LABCLIA [id number] [place] [address] [place] Immature granulocytes/100 WBC (Bld) 0.8 % Normal [facility] Comment on above: Order Comment: Speci men Type: BLOOD SPECIMENOrdering Facility: [facility] Address: [address] [place] [address] Performed By: #### 5 7021-8 ####[facility] LABCLIA [id number] [place] [address] [place] Lymphocytes (Bld) [#/Vol] 1.19 10*3/uL Normal 1.00-4.00 [facility] Comment on above: Order Comment: Speci men Type: BLOOD SPECIMENOrdering Facility: [facility] Address: [address] [place] [address] Performed By: #### 5 7021-8 ####[facility] LABCLIA [id number] [place] [address] [place] Lymphocytes/100 WBC (Bld) 9.2 % Normal [facility] Comment on above: Order Comment: Speci men Type: BLOOD SPECIMENOrdering Facility: [facility] Address: [address] [place] [address] Performed By: #### 5 7021-8 ####[facility] LABIA [id number] [place] [address] [place] MCH (RBC) [Entitic mass] 20.3 pg Low 26.0-34.0 [facility] Comment on above: Order Comment: Speci men Type: BLOOD SPECIMENOrdering Facility: [facility] Address: [address] [place] [address] Performed By: #### 5 7021-8 ####[facility]IA [id number] [place] [address] [place] MCHC (RBC) [Mass/Vol] 27.9 g/dL Low 30.5-36.0 [facility] Comment on above: Order Comment: Speci men Type: BLOOD SPECIMENOrdering Facility: [facility] Address: [address] [place] [address] Performed By: #### 5 7021-8 ####[facility] [id number] [place] [address] [place] MCV (RBC) [Entitic vol] 72.6 fL Low 80.0-100.0 [facility] Comment on above: Order Comment: Speci men Type: BLOOD SPECIMENOrdering Facility: [facility] Address: [address] [place] [address] Performed By: #### 5 7021-8 ####[facility] [id number] [place] [address] [place] Monocytes (Bld) [#/Vol] 0.61 10*3/uL Normal <0.87 [facility] Comment on above: Order Comment: Speci men Type: BLOOD SPECIMENOrdering Facility: [facility] Address: [address] [place] [address] Performed By: #### 5 7021-8 ####[facility] [id number] [place] [address] [place] Monocytes/100 WBC (Bld) 4.7 % Normal [facility] Comment on above: Order Comment: Speci men Type: BLOOD SPECIMENOrdering Facility: [facility] Address: [address] [place] [address] Performed By: #### 5 7021-8 ####[facility] LABCLIA [id number] [place] [address] [place] Neutrophils (Bld) [#/Vol] 10.99 10*3/uL High 1.45-7.50 [facility] Comment on above: Order Comment: Speci men Type: BLOOD SPECIMENOrdering Facility: [facility] Address: [address] [place] [address] Performed By: #### 5 7021-8 ####[facility] LABCLIA [id number] [place] [address] [place] Neutrophils/100 WBC (Bld) 84.5 % Normal [facility] Comment on above: Order Comment: Speci men Type: BLOOD SPECIMENOrdering Facility: [facility] Address: [address] [place] [address] Performed By: #### 5 7021-8 ####[facility] LABCLIA [id number] [place] [address] [place] Nucleated RBC (Bld) [#/Vol] 10*3/uL Normal <0.01 [facility] Comment on above: Order Comment: Speci men Type: BLOOD SPECIMENOrdering Facility: [facility] Address: [address] [place] [address] Performed By: #### 5 7021-8 ####[facility] LABCLIA [id number] [place] [address] [place] Nucleated RBC/100 WBC (Bld) [Ratio] 0.0 /100 WBC Normal [facility] Comment on above: Order Comment: Speci men Type: BLOOD SPECIMENOrdering Facility: [facility] Address: [address] [place] [address] Performed By: #### 5 7021-8 ####[facility] LABCLIA [id number] [place] [address] [place] Platelet mean volume (Bld) [Entitic vol] Normal [facility] Comment on above: Order Comment: Speci men Type: BLOOD SPECIMENOrdering Facility: [facility] Address: [address] [place] [address] Result Comment: Unab le to Report. Performed By: #### 5 7021-8 ####[facility] LABCLIA [id number] [place] [address] [place] Platelets (Bld) [#/Vol] 214 10*3/uL Normal 150-400 [facility] Comment on above: Order Comment: Speci men Type: BLOOD SPECIMENOrdering Facility: [facility] Address: [address] [place] [address] Performed By: #### 5 7021-8 ####[facility]IA [id number] [place] [address] [place] RBC (Bld) [#/Vol] 4.34 10*6/uL Normal 3.90-5.20 [facility] Comment on above: Order Comment: Speci men Type: BLOOD SPECIMENOrdering Facility: [facility] Address: [address] [place] [address] Performed By: #### 5 7021-8 ####[facility]IA [id number] [place] [address] [place] WBC (Bld) [#/Vol] 13.00 10*3/uL High 3.70-11.00 [facility] Comment on above: Order Comment: Speci men Type: BLOOD SPECIMENOrdering Facility: [facility] Address: [address] [place] [address] Performed By: #### 5 7021-8 ####[facility] LABCLIA [id number] [place] [address], [place] [address] [place] [facility] Angelo 12-14-2023 CNPN Telephone (INTMWS) AINSLEY SORENSON ([id number]) 1935 F Date Time Provider Department 12/14/23 MING MCKNIGHT INTMWS During your visit today, we recorded the following information about you: Johanna Gamez RN 12/14/2023 9:35 AM Signed Patient's Daughter calls and states that they had taken patient to [facility] yesterday. Patient's Hgb was 6.8 when patient [...] Date Reviewed: 12/10/2023 Reviewed by: Shonda Tyler APRN.[employer] - Fully Assessed Reason for Visit: Patient Update [1234] Primary Visit Diagnosis:Anemia, unspecified type [D64.9] Order(s):COMPLETE BLOOD COUNT AND DIFFERENTIAL [SQCBCDIF] Order #: [id number] FUTURE Prescriptions as of 12/14/2023 - sertraline [...] Encounter Status:Closed by ZORAN GAMBLE on 12/14/23 [facility] Angelo 12-13-2023 [place] Telephone (INTMWS) AINSLEY SORENSON ([id number]) 1935 F Date Time Provider Department 12/13/23 [...] patient daughter who said she lives in [place]. Went over results notes from Shonda Tyler [employer]ATION ELECT[employer]ICIAN SUPERVISOR, she said she does not see mother stools so she does not know, she said she sleeps a lot but thought it is medications. She said she just got back home from [place], she said so I need to get back in my car and come back to [place] and take her to the ER. Asked [...] identify a cause. Thank you Shonda Tyler APRN.[employer] CH[employer]IR KelsyDeeptiGRACE 12/13/2023 4:28 PM Signed Daughter notified, was already on way up from [place] and feels she will just plan on going to ER to be on the safe side. Allergies As of Date: 12/13/2023 Noted Allergy Reaction ARICEPT (DONEPEZIL) 04/26/2023 9 - Itching AUGMENTIN (AMOXICILLIN-POT CLAVUL*11/11/2012 6 - Diarrhea CIPROFLOXACIN 07/18/2010 2 - Rash LEVAQUIN (LEVOFLOXACIN) 04/24/2013 2 - Rash Comments: itching rash Date Reviewed: 12/10/2023 Reviewed by: Shonda Tyler APRN.[employer] - Fully Assessed Reason for Visit: Results [...] Status:Closed by DEEPTI TIERNEY on 12/13/23 Normal [facility] CBC W Auto Differential pane l (Bld)on 12-10-2023 Basophils (Bld) [#/Vol] 0.04 10*3/uL Normal <0.11 [facility] Comment on above: Order Comment: Speci men Type: BLOOD SPECIMENOrdering Facility: [facility] Address: [address] [place] [address] Performed By: #### 5 7021-8 ####[facility] LABCLIA [id number] [place] [address] [place] Basophils/100 WBC (Bld) 0.4 % Normal [facility] Comment on above: Order Comment: Speci men Type: BLOOD SPECIMENOrdering Facility: [facility] Address: [address] [place] [address] Performed By: #### 5 7021-8 ####[facility] LABCLIA [id number] [place] [address] [place] Differential cell count method Nom (Bld) Auto Normal [facility] Comment on above: Order Comment: Speci men Type: BLOOD SPECIMENOrdering Facility: [facility] Address: [address] [place] [address] Performed By: #### 5 7021-8 ####[facility] LABCLIA [id number] [place] [address] [place] Eosinophils (Bld) [#/Vol] 0.07 10*3/uL Normal <0.46 [facility] Comment on above: Order Comment: Speci men Type: BLOOD SPECIMENOrdering Facility: [facility] Address: [address] [place] [address] Performed By: #### 5 7021-8 ####[facility] LABCLIA [id number] [place] [address] [place] Eosinophils/100 WBC (Bld) 0.8 % Normal [facility] Comment on above: Order Comment: Speci men Type: BLOOD SPECIMENOrdering Facility: [facility] Address: [address] [place] [address] Performed By: #### 5 7021-8 ####[facility]CLIA [id number] [place] [address] [place] Erythrocyte distribution width (RBC) [Ratio] 20.1 % High 11.5-15.0 [facility] Comment on above: Order Comment: Speci men Type: BLOOD SPECIMENOrdering Facility: [facility] Address: [address] [place] [address] Performed By: #### 5 7021-8 ####[facility]CLIA [id number] [place] [address] [place] Hematocrit (Bld) [Volume fraction] 26.9 % Low 36.0-46.0 [facility] Comment on above: Order Comment: Speci men Type: BLOOD SPECIMENOrdering Facility: [facility] Address: [address] [place] [address] Performed By: #### 5 7021-8 ####[facility]CL[facility] [id number] [place] [address] [place] Hemoglobin (Bld) [Mass/Vol] 7.1 g/dL Low 11.5-15.5 [facility] Comment on above: Order Comment: Speci men Type: BLOOD SPECIMENOrdering Facility: [facility] Address: [address] [place] [address] Performed By: #### 5 7021-8 ####[facility]CL[facility] [id number] [place] [address] [place] Immature granulocytes (Bld) [#/Vol] 10*3/uL Normal <0.10 [facility] Comment on above: Order Comment: Speci men Type: BLOOD SPECIMENOrdering Facility: [facility] Address: [address] [place] [address] Performed By: #### 5 7021-8 ####[facility]CL[facility] [id number] [place] [address] [place] Immature granulocytes/100 WBC (Bld) 0.2 % Normal [facility] Comment on above: Order Comment: Speci men Type: BLOOD SPECIMENOrdering Facility: [facility] Address: [address] [place] [address] Performed By: #### 5 7021-8 ####[facility]CL[facility] [id number] [place] [address] [place] Lymphocytes (Bld) [#/Vol] 1.16 10*3/uL Normal 1.00-4.00 [facility] Comment on above: Order Comment: Speci men Type: BLOOD SPECIMENOrdering Facility: [facility] Address: [address] [place] [address] Performed By: #### 5 7021-8 ####[facility]CLIA [id number] [place] [address] [place] Lymphocytes/100 WBC (Bld) 12.8 % Normal [facility] Comment on above: Order Comment: Speci men Type: BLOOD SPECIMENOrdering Facility: [facility] Address: [address] [place] [address] Performed By: #### 5 7021-8 ####[facility]CL[facility] [id number] [place] [address] [place] MCH (RBC) [Entitic mass] 18.3 pg Low 26.0-34.0 [facility] Comment on above: Order Comment: Speci men Type: BLOOD SPECIMENOrdering Facility: [facility] Address: [address] [place] [address] Performed By: #### 5 7021-8 ####[facility]CL[facility] [id number] [place] [address] [place] MCHC (RBC) [Mass/Vol] 26.4 g/dL Low 30.5-36.0 [facility] Comment on above: Order Comment: Speci men Type: BLOOD SPECIMENOrdering Facility: [facility] Address: [address] [place] [address] Performed By: #### 5 7021-8 ####[facility] [id number] [place] [address] [place] MCV (RBC) [Entitic vol] 69.5 fL Low 80.0-100.0 [facility] Comment on above: Order Comment: Speci men Type: BLOOD SPECIMENOrdering Facility: [facility] Address: [address] [place] [address] Performed By: #### 5 7021-8 ####[facility]CL[facility] [id number] [place] [address] [place] Monocytes (Bld) [#/Vol] 0.69 10*3/uL Normal <0.87 [facility] Comment on above: Order Comment: Speci men Type: BLOOD SPECIMENOrdering Facility: [facility] Address: [address] [place] [address] Performed By: #### 5 7021-8 ####[facility]CL[facility] [id number] [place] [address] [place] Monocytes/100 WBC (Bld) 7.6 % Normal [facility] Comment on above: Order Comment: Speci men Type: BLOOD SPECIMENOrdering Facility: [facility] Address: [address] [place] [address] Performed By: #### 5 7021-8 ####[facility] [id number] [place] [address] [place] Neutrophils (Bld) [#/Vol] 7.09 10*3/uL Normal 1.45-7.50 [facility] Comment on above: Order Comment: Speci men Type: BLOOD SPECIMENOrdering Facility: [facility] Address: [address] [place] [address] Performed By: #### 5 7021-8 ####[facility]CL[facility] [id number] [place] [address] [place] Neutrophils/100 WBC (Bld) 78.2 % Normal [facility] Comment on above: Order Comment: Speci men Type: BLOOD SPECIMENOrdering Facility: [facility] Address: [address] [place] [address] Performed By: #### 5 7021-8 ####[facility]CL[facility] [id number] [place] [address] [place] Nucleated RBC (Bld) [#/Vol] 10*3/uL Normal <0.01 [facility] Comment on above: Order Comment: Speci men Type: BLOOD SPECIMENOrdering Facility: [facility] Address: [address] [place] [address] Performed By: #### 5 7021-8 ####[facility]CL[facility] [id number] [place] [address] [place] Nucleated RBC/100 WBC (Bld) [Ratio] 0.0 /100 WBC Normal [facility] Comment on above: Order Comment: Speci men Type: BLOOD SPECIMENOrdering Facility: [facility] Address: [address] [place] [address] Performed By: #### 5 7021-8 ####[facility] [id number] [place] [address] [place] Platelet mean volume (Bld) [Entitic vol] Normal [facility] Comment on above: Order Comment: Speci men Type: BLOOD SPECIMENOrdering Facility: [facility] Address: [address] [place] [address] Result Comment: Unab le to Report. Performed By: #### 5 7021-8 ####[facility] [id number] [place] [address] [place] Platelets (Bld) [#/Vol] 195 10*3/uL Normal 150-400 [facility] Comment on above: Order Comment: Speci men Type: BLOOD SPECIMENOrdering Facility: [facility] Address: [address] [place] [address] Performed By: #### 5 7021-8 ####[facility] [id number] [place] [address] [place] RBC (Bld) [#/Vol] 3.87 10*6/uL Low 3.90-5.20 [facility] Comment on above: Order Comment: Speci men Type: BLOOD SPECIMENOrdering Facility: [facility] Address: [address] [place] [address] Performed By: #### 5 7021-8 ####[facility] [id number] [place] [address] [place] WBC (Bld) [#/Vol] 9.07 10*3/uL Normal 3.70-11.00 [facility] Comment on above: Order Comment: Speci men Type: BLOOD SPECIMENOrdering Facility: [facility] Address: [address] [place] [address] Performed By: #### 5 7021-8 ####[facility] [id number] [id number] [id number] [facility] CNOVon 12-10-2023 CNOV Office Visit (INTMWS ) AINSLEY SORENSON ([id number]) 1935 F Date Time Provider Department 12/10/23 2:00 PM SHONDA TYLER INTMWANDA During your visit today, we recorded the following information about you: Pulse Blood pressure Weight 68/minute 128/74 47.3 kg Shonda Tyler APRN.[employer] HUMANITIES CHAIR 12/10/2023 2:57 PM Signed CC: Patient presents [...] 11/21/2023 R (more content not included)... Normal [facility] Comprehensive metabolic 2000 panelon 12-10-2023 Albumin [Mass/Vol] 3.9 g/dL Normal 3.9-4.9 [facility] Comment on above: Order Comment: Chiquita thornton Type: BLOOD SPECIMENOrdering Facility: [facility] Address: [address] [place] [address] Performed By: #### 3 051-0, 3016-3, 62878-5, 6354-7 ####[facility] LABCLIA [id number] [place] [address] [place] ALP [Catalytic activity/Vol] 94 U/L Normal 34-123 [facility] Comment on above: Order Comment: Chiquita thornton Type: BLOOD SPECIMENOrdering Facility: [facility] Address: [address] [place] [address] Performed By: #### 3 051-0, 3016-3, 91241-4, 3023-7 ####[facility] LABCLIA [id number] [place] [address] [place] ALT [Catalytic activity/Vol] 7 U/L Normal 7-38 [facility] Comment on above: Order Comment: Speci men Type: BLOOD SPECIMENOrdering Facility: [facility] Address: [address] [place] [address] Performed By: #### 3 051-0, 3016-3, 23793-3, 3023-7 ####[facility] LABCLIA [id number] [place] [address] [place] Anion gap [Moles/Vol] 13 mmol/L Normal 8-15 [facility] Comment on above: Order Comment: Speci men Type: BLOOD SPECIMENOrdering Facility: [facility] Address: [address] [place] [address] Performed By: #### 3 051-0, 6-3, 84469-3, 3023-7 ####[facility] LABIA [id number] [place] [address] [place] AST [Catalytic activity/Vol] 20 U/L Normal 13-35 [facility] Comment on above: Order Comment: Speci men Type: BLOOD SPECIMENOrdering Facility: [facility] Address: [address] [place] [address] Performed By: #### 3 051-0, 3016-3, 82632-3, 3023-7 ####[facility] LABCLIA [id number] [place] [address] [place] Bilirubin [Mass/Vol] 0.3 mg/dL Normal 0.2-1.3 [facility] Comment on above: Order Comment: Speci men Type: BLOOD SPECIMENOrdering Facility: [facility] Address: [address] [place] [address] Performed By: #### 3 051-0, 6-3, 88581-3, 3024-7 ####[facility] LABCLIA [id number] [address] [address] [place] Calcium [Mass/Vol] 9.0 mg/dL Normal 8.5-10.2 [facility] Comment on above: Order Comment: Speci men Type: BLOOD SPECIMENOrdering Facility: [facility] Address: [address] [place] [address] Performed By: #### 3 051-0, 3016-3, 74271-8, 3023-7 ####[facility] LABIA [id number] [place] [address] [place] Chloride [Moles/Vol] 106 mmol/L Normal 98-107 [facility] Comment on above: Order Comment: Speci men Type: BLOOD SPECIMENOrdering Facility: [facility] Address: [address] [place] [address] Performed By: #### 3 051-0, 6-3, 25149-6, 3023-7 ####[facility] LABIA [id number] [place] [address] [place] CO2 [Moles/Vol] 22 mmol/L Normal 22-30 [facility] Comment on above: Order Comment: Speci men Type: BLOOD SPECIMENOrdering Facility: [facility] Address: [address] [place] [address] Performed By: #### 3 051-0, 3016-3, 90445-8, 3024-7 ####[facility] LABIA [id number] [place] [address] [place] Creatinine [Mass/Vol] 1.31 mg/dL High 0.58-0.96 [facility] Comment on above: Order Comment: Speci men Type: BLOOD SPECIMENOrdering Facility: [facility] Address: [address] [place] [address] Performed By: #### 3 051-0, 3016-3, 70394-3, 3024-7 ####[facility] LABCLIA [id number] [place] [address] [place] Creatinine and Glomerular filtration rate.predicted panel (S/P/Bld) 40 mL/min/1.73m??? Low >=60 [facility] Comment on above: Order Comment: Chiquita thornton Type: BLOOD SPECIMENOrdering Facility: [facility] Address: [address] [place] [address] Result Comment: Genesis mated Glomerular Filtration Rate [...] GFR. Performed By: #### 3 051-0, 3016-3, 26897-2, 3024-7 ####[facility] LABCLIA [id number] [place] [id number] [place] Glucose [Mass/Vol] 99 mg/dL Normal 74-99 [facility] Comment on above: Order Comment: Chiquita thornton Type: BLOOD SPECIMENOrdering Facility: [facility] Address: [address] [place] [address] Result Comment: The [employer] (ADA) provides guidance for cutoff [...] Standards of Medical Care in Diabetes 2016, [employer]. Diabetes Care. 2016.39(Suppl 1). Performed By: #### 3 051-0, 3016-3, 64548-6, 7 ####[facility] LABCLIA [id number] [address] [address] [place] Potassium [Moles/Vol] 4.1 mmol/L Normal 3.7-5.1 [facility] Comment on above: Order Comment: Speci men Type: BLOOD SPECIMENOrdering Facility: [facility] Address: [address] [place] [address] Performed By: #### 3 051-0, 3016-3, 00801-1, 7 ####[facility] LABIA [id number] [place] [address] [place] Protein [Mass/Vol] 6.4 g/dL Normal 6.3-8.0 [facility] Comment on above: Order Comment: Speci men Type: BLOOD SPECIMENOrdering Facility: [facility] Address: [address] [place] [address] Performed By: #### 3 051-0, 3016-3, 32517-6, 7 ####[facility] LABIA [id number] [place] [id number] [place] Sodium [Moles/Vol] 141 mmol/L Normal 136-144 [facility] Comment on above: Order Comment: Speci men Type: BLOOD SPECIMENOrdering Facility: [facility] Address: [address] [place] [address] Performed By: #### 3 051-0, 3016-3, 59252-2, 7 ####[facility] LABCLIA [id number] [address] [address] [place] Urea nitrogen [Mass/Vol] 18 mg/dL Normal 7-21 [facility] Comment on above: Order Comment: Speci men Type: BLOOD SPECIMENOrdering Facility: [facility] Address: [address] [place] [address] Performed By: #### 3 051-0, 3016-3, 24757-7, 7 ####[facility] LABCLIA [id number] [place] [address] [place] T3Free SerPl-mCncon 12-10-19 24 Free T3 [Mass/Vol] 2.2 pg/mL Low 2.3-4.1 [facility] Comment on above: Order Comment: Speci men Type: BLOOD SPECIMENOrdering Facility: [facility] Address: [address] [place] [address] Performed By: #### 3 051-0, 6-3, 63631-7, 7 ####[facility] LABCLIA [id number] [place] [address] [place] T4 Free SerPl-mCncon 024 Free T4 [Mass/Vol] 1.1 ng/dL Normal 0.9-1.7 [facility] Comment on above: Order Comment: Speci men Type: BLOOD SPECIMENOrdering Facility: [facility] Address: [address] [place] [address] Performed By: #### 3 051-0, 6-3, 76017-5, 7 ####[facility] LABCLIA [id number] [place] [address] [place] TSH SerPl-aCncon 12-10-2023 TSH Qn 2.210 m[IU]/L Normal 0.270-4.200 [facility] Comment on above: Order Comment: Speci men Type: BLOOD SPECIMENOrdering Facility: [facility] Address: [address] [place] [address] Performed By: #### 3 051-0, 3016-3, 95505-0, 7 ####[facility] LABCLIA [id number] [address] [address] [facility] Angel[facility] AINSLEY SORENSON ([id number]) 1935 F Date Time Provider Department 09/24/23 KRYSTAL MEZA [facility] During your visit today, we recorded the [...] about any antibiotic. Please send antibiotic to [facility] in [place] and call and leave a VM on the daughters phone to let her know when it was sent. KEYONNA Steward Rebekah, APRN.[facility] 09/24/2023 2:47 PM Signed The following approved [...] Encounter Status:Closed by LILIA RICHMOND [facility] Tele[facility] (RAISA) AINSLEY SORENSON ([id number]) 1935 F Date Time Provider Department 09/22/23 [...] Status:Closed by SHONDA TYLER on 10/14/23 Normal [facility] Bacteria Ur Culton 4 Bacteria identified Cx [...] Resistant >=1 Nitrofurantoin R 65 F Abnormal [facility] Comment on above: Performed By: #### 6 30-4 ####[facility] LABCLIA [id number] [place] [address] [place] Urinalysis complete panel (U )on 09-21-2023 Bacteria LM.HPF (Urine sed) [#/Area] Negative Normal Negative [facility] Comment on above: Order Comment: Speci men Type: URINE SPECIMENOrdering Facility: [facility] Address: [address] [place] [address] Performed By: #### 2 4356-8 ####[facility] LABCLIA [id number] [place] [address] [place] Bilirubin Ql (U) Negative Normal Negative [facility] Comment on above: Order Comment: Speci men Type: URINE SPECIMENOrdering Facility: [facility] Address: [address] [place] [address] Performed By: #### 2 4356-8 ####[facility] LABIA [id number] [place] [address] [place] Clarity (Unsp spec) Clear Normal Clear [facility] Comment on above: Order Comment: Speci men Type: URINE SPECIMENOrdering Facility: [facility] Address: [address] [place] [address] Performed By: #### 2 4356-8 ####[facility] LABCLIA [id number] [place] [address] [place] Color (U) Yellow Normal Yellow [facility] Comment on above: Order Comment: Speci men Type: URINE SPECIMENOrdering Facility: [facility] Address: [address] [place] [address] Performed By: #### 2 4356-8 ####[facility] LABCLIA [id number] [place] [address] [place] Epithelial cells LM.HPF (Urine sed) [#/Area] None Seen Normal [facility] Comment on above: Order Comment: Speci men Type: URINE SPECIMENOrdering Facility: [facility] Address: [address] [place] [address] Performed By: #### 2 4356-8 ####[facility] LABCLIA [id number] [place] [address] [place] Glucose Test strip (U) [Mass/Vol] Negative Normal Negative [facility] Comment on above: Order Comment: Speci men Type: URINE SPECIMENOrdering Facility: [facility] Address: [address] [place] [address] Performed By: #### 2 4356-8 ####[facility] LABIA [id number] [place] [address] [place] Hemoglobin Ql (U) Negative Normal Negative [facility] Comment on above: Order Comment: Speci men Type: URINE SPECIMENOrdering Facility: [facility] Address: [address] [place] [address] Performed By: #### 2 4356-8 ####[facility] LABCLIA [id number] [place] [address] [place] Hyaline casts (Urine sed) [#/Area] 0 /[LPF] Normal 0 /LPF [facility] Comment on above: Order Comment: Speci men Type: URINE SPECIMENOrdering Facility: [facility] Address: [address] [place] [address] Performed By: #### 2 4356-8 ####[facility] LABCLIA [id number] [place] [address] [place] Ketones Ql (U) Negative Normal Negative [facility] Comment on above: Order Comment: Speci men Type: URINE SPECIMENOrdering Facility: [facility] Address: [address] [place] [address] Performed By: #### 2 4356-8 ####[facility] LABCLIA [id number] [place] [address] [place] Leukocyte esterase Test strip Ql (U) 2+ Abnormal Negative [facility] Comment on above: Order Comment: Speci men Type: URINE SPECIMENOrdering Facility: [facility] Address: [address] [place] [address] Performed By: #### 2 4356-8 ####[facility] LABCLIA [id number] [place] [address] [place] Nitrite Ql (U) Negative Normal Negative [facility] Comment on above: Order Comment: Speci men Type: URINE SPECIMENOrdering Facility: [facility] Address: [address] [place] [address] Performed By: #### 2 4356-8 ####[facility] LABCLIA [id number] [place] [address] [place] pH (U) 7.0 [pH] Normal <8.5 [facility] Comment on above: Order Comment: Speci men Type: URINE SPECIMENOrdering Facility: [facility] Address: [address] [place] [address] Performed By: #### 2 4356-8 ####[facility] LABCLIA [id number] [place] [address] [place] Protein (U) [Mass/Vol] Negative Normal Negative [facility] Comment on above: Order Comment: Speci men Type: URINE SPECIMENOrdering Facility: [facility] Address: [address] [place] [address] Performed By: #### 2 4356-8 ####[facility] LABIA [id number] [place] [address] [place] RBC LM.HPF (Urine sed) [#/Area] 0-2 /HPF Normal 0-2 /HPF [facility] Comment on above: Order Comment: Speci men Type: URINE SPECIMENOrdering Facility: [facility] Address: [address] [place] [address] Performed By: #### 2 4356-8 ####[facility] [id number] [place] [address] [place] Specific gravity (U) [Rel density] 1.017 Normal 1.005-1.030 [facility] Comment on above: Order Comment: Speci men Type: URINE SPECIMENOrdering Facility: [facility] Address: [address] [place] [address] Performed By: #### 2 4356-8 ####[facility] LABIA [id number] [place] [address] [place] Urobilinogen Ql (U) 1.0 EU/dL Normal 0.2-1.0 EU/dL [facility] Comment on above: Order Comment: Speci men Type: URINE SPECIMENOrdering Facility: [facility] Address: [address] [place] [address] Performed By: #### 2 4356-8 ####[facility] LABIA [id number] [place] [address] [place] WBC LM.HPF (Urine sed) [#/Area] 11-20 /HPF Abnormal 0-5 /HPF [facility] Comment on above: Order Comment: Speci men Type: URINE SPECIMENOrdering Facility: [facility] Address: [address] [place] [address] Performed By: #### 2 4356-8 ####[facility] BOUBACAR [id number] [address] [id number] OF [facility] Angelo 08-18-2023 [facility] Telephone (INTMWS) AINSLEY SORENSON ([id number]) 1935 F Date Time Provider Department 08/18/23 SHONDA TYLER During your visit today, we recorded the following information about you: Shonda Tyler APRN.[facility] 08/18/2023 2:32 PM Signed Urine still with [...] itching rash Date Reviewed: 08/13/2023 Reviewed by: Iastu Moreno LPN - Fully Assessed Reason for Visit: Results [95] Primary Visit Diagnosis:Recent urinary tract infection [Z87.440] Other Visit Diagnosis:Recurrent UTI [N39.0] Order(s):sulfamethoxaz ole-trimethoprim (BACTRIM) 400-80 mg per tabletTake 1 tablet by mouth once daily for 7 days.Disp: 7 tabletRfl: 0 URINALYSIS, WITH MICROSCOPIC [SQUAWMIC] Order #: [id number] FUTURE URINE CULTURE [SQURCUL] Order #: [id number] FUTURE Prescriptions as of 08/18/2023 - sulfamethoxazole-trime [...] Status:Closed by DEEPTI TIERNEY on 08/18/23 Normal [facility] Bacteria Ur Culton 4 Bacteria identified Cx Nom (U) ORGANISM ID: 1 50,000-<100,000 CFU/ml Lactose negative gram negative bacilli No susceptibility testing done. Call lab within 72 hours to initiate work-up if clinically indicated. ORGANISM ID: 2 50,000-<100,000 CFU/ml Normal urogenital aleksandr Normal [facility] Comment on above: Performed By: #### 6 30-4 ####[facility] LABCLIA [id number] [address] STATES OF [facility] CNOVon 08-13-2023 CNOV Office Visit (INTMWS ) AINSLEY SORENSON ([id number]) 1935 F Date Time Provider Department 08/13/23 [...] ICD9: V13.0 (more content not included)... Normal [facility] UA DIP, URINE (POC)on 2023 BILIRUBIN UA (POCT) Negative Negative [facility] CLARITY UA (POCT) Slightly Cloudy Cl [facility] COLOR UA (POCT) Other [facility] GLUCOSE UA (POCT) Negative Negative mg/dL [facility] Hemoglobin Ql (U) Trace-intact Abnormal Negative [facility] Interpretation and review of laboratory results Abnormal [facility] KETONE UA (POCT) Negative Negative mg/dL [facility] LEUKOCYTES UA (POCT) Small Abnormal Negative [facility] NITRITE UA (POCT) Negative Negative [facility] PH UA (POCT) 6.0 4.5 - 8.0 [facility] Protein Ql (U) Negative Negative mg/dL [facility] SPECIFIC GRAVITY UA (POCT) 1.020 1.005 - 1.030 [facility] UROBILINOGEN UA (POCT) 0.2 Normal E.U./dL [facility] Location:[address], [place], [place], [id number] [place] [address] POINT OF CARE [facility] 04-29-2023 SABIHAN Telephone (INTMWS) AINSLEY SORENSON ([id number]) 1935 F Date Time Provider Department 04/29/23 [...] Status:Closed by SUZY LINDO on 04/29/23 Normal [facility] Urinalysis complete panel (U )on 04-27-2023 Bacteria LM.HPF (Urine sed) [#/Area] Negative Normal Negative [facility] Comment on above: Order Comment: Speci men Type: URINE SPECIMENOrdering Facility: [facility] Address: [address] [place] [address] Performed By: #### 2 4356-8 ####[facility] LABCLIA [id number] [place] [address] [place] Bilirubin Ql (U) Negative Normal Negative [facility] Comment on above: Order Comment: Speci men Type: URINE SPECIMENOrdering Facility: [facility] Address: [address] [place] [address] Performed By: #### 2 4356-8 ####[facility] LABCLIA [id number] [place] [address] [place] Clarity (Unsp spec) Clear Normal Clear [facility] Comment on above: Order Comment: Speci men Type: URINE SPECIMENOrdering Facility: [facility] Address: [address] [place] [address] Performed By: #### 2 4356-8 ####[facility] LABCLIA [id number] [place] [address] [place] Color (U) Yellow Normal Yellow [facility] Comment on above: Order Comment: Speci men Type: URINE SPECIMENOrdering Facility: [facility] Address: [address] [place] [address] Performed By: #### 2 4356-8 ####[facility] LABCLIA [id number] [place] [address] [place] Epithelial cells LM.HPF (Urine sed) [#/Area] None Seen Normal [facility] Comment on above: Order Comment: Speci men Type: URINE SPECIMENOrdering Facility: [facility] Address: [address] [place] [address] Performed By: #### 2 4356-8 ####[facility] LABCLIA [id number] [place] [address] [place] Glucose Test strip (U) [Mass/Vol] Negative Normal Negative [facility] Comment on above: Order Comment: Speci men Type: URINE SPECIMENOrdering Facility: [facility] Address: [address] [place] [address] Performed By: #### 2 4356-8 ####[facility] LABCLIA [id number] [place] [address] [place] Hemoglobin Ql (U) Negative Normal Negative [facility] Comment on above: Order Comment: Speci men Type: URINE SPECIMENOrdering Facility: [facility] Address: [address] [place] [address] Performed By: #### 2 4356-8 ####[facility] LABCLIA [id number] [place] [address] [place] Hyaline casts (Urine sed) [#/Area] 1-3 /LPF Abnormal 0 /LPF [facility] Comment on above: Order Comment: Speci men Type: URINE SPECIMENOrdering Facility: [facility] Address: [address] [place] [address] Performed By: #### 2 4356-8 ####[facility] LABCLIA [id number] [place] [address] [place] Ketones Ql (U) Negative Normal Negative [facility] Comment on above: Order Comment: Speci men Type: URINE SPECIMENOrdering Facility: [facility] Address: [address] [place] [address] Performed By: #### 2 4356-8 ####[facility] LABCLIA [id number] [place] [address] [place] Leukocyte esterase Test strip Ql (U) 2+ Abnormal Negative [facility] Comment on above: Order Comment: Speci men Type: URINE SPECIMENOrdering Facility: [facility] Address: [address] [place] [address] Performed By: #### 2 4356-8 ####[facility] LABCLIA [id number] [place] [id number] [place] Nitrite Ql (U) Negative Normal Negative [facility] Comment on above: Order Comment: Speci men Type: URINE SPECIMENOrdering Facility: [facility] Address: [address] [place] [address] Performed By: #### 2 4356-8 ####[facility] LABIA [id number] [place] [address] [place] pH (U) 6.0 [pH] Normal <8.5 [facility] Comment on above: Order Comment: Speci men Type: URINE SPECIMENOrdering Facility: [facility] Address: [address] [place] [address] Performed By: #### 2 4356-8 ####[facility] LABIA [id number] [place] [address] [place] Protein (U) [Mass/Vol] Negative Normal Negative [facility] Comment on above: Order Comment: Speci men Type: URINE SPECIMENOrdering Facility: [facility] Address: [address] [place] [address] Performed By: #### 2 4356-8 ####[facility] LABIA [id number] [place] [address] [place] RBC LM.HPF (Urine sed) [#/Area] 0-2 /HPF Normal 0-2 /HPF [facility] Comment on above: Order Comment: Speci men Type: URINE SPECIMENOrdering Facility: [facility] Address: [address] [place] [address] Performed By: #### 2 4356-8 ####[facility] LABIA [id number] [place] [address] [place] Specific gravity (U) [Rel density] 1.017 Normal 1.005-1.030 [facility] Comment on above: Order Comment: Speci men Type: URINE SPECIMENOrdering Facility: [facility] Address: [address] [place] [address] Performed By: #### 2 4356-8 ####[facility] LABIA [id number] [place] [address] [place] Urobilinogen Ql (U) 1.0 EU/dL Normal 0.2-1.0 EU/dL Cl [facility] Comment on above: Order Comment: Speci men Type: URINE SPECIMENOrdering Facility: [facility] Address: [address] [place] [address] Performed By: #### 2 4356-8 ####[facility] LABIA [id number] [place] [address] [place] WBC LM.HPF (Urine sed) [#/Area] /[HPF] Abnormal 0-5 /HPF [facility] Comment on above: Order Comment: Speci men Type: URINE SPECIMENOrdering Facility: [facility] Address: [address] [place] [address] Performed By: #### 2 4356-8 ####[facility] LABIA [id number] [place] [address] [place] Urinalysis complete pnl [...] , Intermediate >32 , Resistant >64 Abnormal [facility] Comment on above: Order Comment: Speci men Type: URINE SPECIMENOrdering Facility: [facility] Address: [address] [place] [address] Performed By: #### 2 4356-8 ####[facility] LABCHRISTI [id number] [address] [address] [place] CNOVon 04-26-2023 CNOV Office Visit (INTMWS ) AINSLEY SORENSON ([id number]) 1935 F Date Time Provider Department 04/26/23 1:20 PM OLDER, SHONDA KLINE During your visit today, we recorded the following information about you: Pulse Respiration Blood pressure Weight 72/minute 16/minute 128/70 49 kg OlderShonda APRN.[employer] [facility] 04/26/2023 2:41 PM Signed CC: Patient presents [...] SENTENCE 0 (more content not included)... Normal [facility] Comprehensive metabolic 2000 panelon 04-26-2023 Albumin [Mass/Vol] 4.2 g/dL Normal 3.9-4.9 [facility] Comment on above: Order Comment: Speci men Type: BLOOD SPECIMENOrdering Facility: [facility] Address: [address] [place] [address] Performed By: #### 2 4323-8, 3016-3, 302-7 ####[facility] [id number] [place] [address] [place] ALP [Catalytic activity/Vol] 105 U/L Normal 34-123 [facility] Comment on above: Order Comment: Speci men Type: BLOOD SPECIMENOrdering Facility: [facility] Address: [address] [place] [address] Performed By: #### 2 4323-8, 3016-3, 3024-7 ####[facility] LABIA [id number] [place] [address] [place] ALT [Catalytic activity/Vol] 8 U/L Normal 7-38 [facility] Comment on above: Order Comment: Speci men Type: BLOOD SPECIMENOrdering Facility: [facility] Address: [address] [place] [address] Performed By: #### 2 4323-8, 3016-3, 302-7 ####[facility] LABCLIA [id number] [address] [address] [place] Anion gap [Moles/Vol] 11 mmol/L Normal 9-18 [facility] Comment on above: Order Comment: Speci men Type: BLOOD SPECIMENOrdering Facility: [facility] Address: [address] [place] [address] Performed By: #### 2 4323-8, 6-3, 7 ####[facility] [id number] [place] [address] [place] AST [Catalytic activity/Vol] 18 U/L Normal 13-35 [facility] Comment on above: Order Comment: Speci men Type: BLOOD SPECIMENOrdering Facility: [facility] Address: [address] [place], [place] [address] Performed By: #### 2 4323-8, 3015-3, 7 ####[facility]IA [id number] [place] [address] [place] Bilirubin [Mass/Vol] 0.3 mg/dL Normal 0.2-1.3 [facility] Comment on above: Order Comment: Speci men Type: BLOOD SPECIMENOrdering Facility: [facility] Address: [address] [place] [address] Performed By: #### 2 4323-8, 3015-3, 7 ####[facility] [id number] [address] [address] [place] Calcium [Mass/Vol] 9.6 mg/dL Normal 8.5-10.2 [facility] Comment on above: Order Comment: Speci men Type: BLOOD SPECIMENOrdering Facility: [facility] Address: [address] [place] [address] Performed By: #### 2 4323-8, 6-3, 3023-7 ####[facility]IA [id number] [address] [address] [place] Chloride [Moles/Vol] 104 mmol/L Normal 97-105 [facility] Comment on above: Order Comment: Speci men Type: BLOOD SPECIMENOrdering Facility: [facility] Address: [address] [place] [address] Performed By: #### 2 4323-8, 6-3, 7 ####[facility] [id number] [place] [address] [place] CO2 [Moles/Vol] 26 mmol/L Normal 22-30 [facility] Comment on above: Order Comment: Speci men Type: BLOOD SPECIMENOrdering Facility: [facility] Address: [address] [place] [address] Performed By: #### 2 4323-8, 3015-3, 7 ####[facility]IA [id number] [place] [address] [place] Creatinine [Mass/Vol] 1.25 mg/dL High 0.58-0.96 [facility] Comment on above: Order Comment: Speci men Type: BLOOD SPECIMENOrdering Facility: [facility] Address: [address] [place] [address] Performed By: #### 2 4323-8, 3, 7 ####[facility] [id number] [address] [address] [place] Creatinine and Glomerular filtration rate.predicted panel (S/P/Bld) 42 mL/min/1.73m??? Low >=60 [facility] Comment on above: Order Comment: Speci men Type: BLOOD SPECIMENOrdering Facility: [facility] Address: [address] [place] [address] Result Comment: Genesis mated Glomerular Filtration Rate [...] Performed By: #### 2 4323-8, 6-3, 3023-09 ####[facility] LABCLIA [id number] [facility] [address] [address] [place] Glucose [Mass/Vol] 100 mg/dL High 74-99 [facility] Comment on above: Order Comment: Speci men Type: BLOOD SPECIMENOrdering Facility: [facility] Address: [address] [place] [address] Result Comment: The [employer] (ADA) provides guidance for cutoff [...] Standards of Medical Care in Diabetes 2016, [employer]. Diabetes Care. 2016.39(Suppl 1). Performed By: #### 2 4323-8, 3015-3, 3023-09 ####[facility] LABCLIA [id number] [address] [address] [place] Potassium [Moles/Vol] 4.2 mmol/L Normal 3.7-5.1 [facility] Comment on above: Order Comment: Speci men Type: BLOOD SPECIMENOrdering Facility: [facility] Address: [address] [place] [address] Performed By: #### 2 4323-8, 6-3, 7 ####[facility] LABCLIA [id number] [place] [address] [place] Protein [Mass/Vol] 7.0 g/dL Normal 6.3-8.0 [facility] Comment on above: Order Comment: Speci men Type: BLOOD SPECIMENOrdering Facility: [facility] Address: [address] [place] [address] Performed By: #### 2 4323-8, 3016-3, 3023-7 ####[facility] LABCLIA [id number] [place] [address] [place] Sodium [Moles/Vol] 141 mmol/L Normal 136-144 [facility] Comment on above: Order Comment: Speci men Type: BLOOD SPECIMENOrdering Facility: [facility] Address: [address] [place] [address] Performed By: #### 2 4323-8, 3016-3, 7 ####[facility] LABCLIA [id number] [place] [address] [place] Urea nitrogen [Mass/Vol] 15 mg/dL Normal 7-21 [facility] Comment on above: Order Comment: Speci men Type: BLOOD SPECIMENOrdering Facility: [facility] Address: [address] [place] [address] Performed By: #### 2 4323-8, 3016-3, 7 ####[facility] LABCLIA [id number] [place] [address] [place] T4 Free SerPl-mCncon 024 Free T4 [Mass/Vol] 1.2 ng/dL Normal 0.9-1.7 [facility] Comment on above: Order Comment: Speci men Type: BLOOD SPECIMENOrdering Facility: [facility] Address: [address] [place] [address] Performed By: #### 2 4323-8, 3016-3, 302-7 ####[facility] LABCLIA [id number] [address] [address] [place] TSH SerPl-aCncon 04-26-2023 TSH Qn 1.310 m[IU]/L Normal 0.270-4.200 [facility] Comment on above: Order Comment: Speci men Type: BLOOD SPECIMENOrdering Facility: [facility] Address: [address] [place] [address] Performed By: #### 2 4323-8, 3016-3, 3024-7 ####[facility] LABCLIA [id number] [place] [id number] [place] CBC W Auto Differential pane l (Bld)on 03-12-2023 Basophils (Bld) [#/Vol] 0.05 10*3/uL Normal <0.11 [facility] Comment on above: Order Comment: Speci men Type: BLOOD SPECIMENOrdering Facility: [facility] Address: [address] [place] [address] Performed By: #### 5 7021-8 ####[facility] [id number] [place] [address] [place] Basophils/100 WBC (Bld) 0.7 % Normal [facility] Comment on above: Order Comment: Speci men Type: BLOOD SPECIMENOrdering Facility: [facility] Address: [address] [place] [address] Performed By: #### 5 7021-8 ####[facility] [id number] [place] [address] [place] Differential cell count method Nom (Bld) Auto Normal [facility] Comment on above: Order Comment: Speci men Type: BLOOD SPECIMENOrdering Facility: [facility] Address: [address] [place] [address] Performed By: #### 5 7021-8 ####[facility] [id number] [place] [address] [place] Eosinophils (Bld) [#/Vol] 0.17 10*3/uL Normal <0.46 [facility] Comment on above: Order Comment: Speci men Type: BLOOD SPECIMENOrdering Facility: [facility] Address: [address] [place] [address] Performed By: #### 5 7021-8 ####[facility] [id number] [place] [address] [place] Eosinophils/100 WBC (Bld) 2.3 % Normal [facility] Comment on above: Order Comment: Speci men Type: BLOOD SPECIMENOrdering Facility: [facility] Address: [address] [place] [address] Performed By: #### 5 7021-8 ####[facility] [id number] [place] [address] [place] Erythrocyte distribution width (RBC) [Ratio] 22.3 % High 11.5-15.0 [facility] Comment on above: Order Comment: Speci men Type: BLOOD SPECIMENOrdering Facility: [facility] Address: [address] [place] [address] Performed By: #### 5 7021-8 ####[facility] [id number] [place] [address] [place] Hematocrit (Bld) [Volume fraction] 36.4 % Normal 36.0-46.0 [facility] Comment on above: Order Comment: Speci men Type: BLOOD SPECIMENOrdering Facility: [facility] Address: [address] [place] [address] Performed By: #### 5 7021-8 ####[facility] [id number] [place] [address] [place] Hemoglobin (Bld) [Mass/Vol] 10.4 g/dL Low 11.5-15.5 [facility] Comment on above: Order Comment: Speci men Type: BLOOD SPECIMENOrdering Facility: [facility] Address: [address] [place] [address] Performed By: #### 5 7021-8 ####[facility] MILLWNCLIA [id number] [place] [address] [place] Immature granulocytes (Bld) [#/Vol] 10*3/uL Normal <0.10 [facility] Comment on above: Order Comment: Speci men Type: BLOOD SPECIMENOrdering Facility: [facility] Address: [address] [place] [address] Performed By: #### 5 7021-8 ####[facility] MILLWNCLIA [id number] [place] [address] [place] Immature granulocytes/100 WBC (Bld) 0.1 % Normal [facility] Comment on above: Order Comment: Speci men Type: BLOOD SPECIMENOrdering Facility: [facility] Address: [address] [place] [address] Performed By: #### 5 7021-8 ####[facility] [id number] [place] [address] [place] Lymphocytes (Bld) [#/Vol] 1.17 10*3/uL Normal 1.00-4.00 [facility] Comment on above: Order Comment: Speci men Type: BLOOD SPECIMENOrdering Facility: [facility] Address: [address] [place] [address] Performed By: #### 5 7021-8 ####[facility] MILLTOWNCLIA [id number] [place] [address] [place] Lymphocytes/100 WBC (Bld) 15.7 % Normal [facility] Comment on above: Order Comment: Speci men Type: BLOOD SPECIMENOrdering Facility: [facility] Address: [address] [place] [address] Performed By: #### 5 7021-8 ####[facility] [id number] [place] [address] [place] MCH (RBC) [Entitic mass] 22.7 pg Low 26.0-34.0 [facility] Comment on above: Order Comment: Speci men Type: BLOOD SPECIMENOrdering Facility: [facility] Address: [address] [place] [address] Performed By: #### 5 7021-8 ####[facility] [id number] [place] [address] [place] MCHC (RBC) [Mass/Vol] 28.6 g/dL Low 30.5-36.0 [facility] Comment on above: Order Comment: Speci men Type: BLOOD SPECIMENOrdering Facility: [facility] Address: [address] [place] [address] Performed By: #### 5 7021-8 ####[facility] [id number] [place] [address] [place] MCV (RBC) [Entitic vol] 79.5 fL Low 80.0-100.0 [facility] Comment on above: Order Comment: Speci men Type: BLOOD SPECIMENOrdering Facility: [facility] Address: [address] [place] [address] Performed By: #### 5 7021-8 ####[facility] [id number] [place] [address] [place] Monocytes (Bld) [#/Vol] 0.40 10*3/uL Normal <0.87 [facility] Comment on above: Order Comment: Speci men Type: BLOOD SPECIMENOrdering Facility: [facility] Address: [address] [place] [address] Performed By: #### 5 7021-8 ####[facility] [id number] [place] [address] [place] Monocytes/100 WBC (Bld) 5.4 % Normal [facility] Comment on above: Order Comment: Speci men Type: BLOOD SPECIMENOrdering Facility: [facility] Address: [address] [place] [address] Performed By: #### 5 7021-8 ####[facility] RODNEYROEBUCKJESSYLIA [id number] [place] [address] [place] Neutrophils (Bld) [#/Vol] 5.65 10*3/uL Normal 1.45-7.50 [facility] Comment on above: Order Comment: Speci men Type: BLOOD SPECIMENOrdering Facility: [facility] Address: [address] [place] [address] Performed By: #### 5 7021-8 ####[facility] [id number] [place] [address] [place] Neutrophils/100 WBC (Bld) 75.8 % Normal [facility] Comment on above: Order Comment: Speci men Type: BLOOD SPECIMENOrdering Facility: [facility] Address: [address] [place] [address] Performed By: #### 5 7021-8 ####[facility] [id number] [place] [address] [place] Nucleated RBC (Bld) [#/Vol] 10*3/uL Normal <0.01 [facility] Comment on above: Order Comment: Speci men Type: BLOOD SPECIMENOrdering Facility: [facility] Address: [address] [place] [address] Performed By: #### 5 7021-8 ####[facility] [id number] [place] [address] [place] Nucleated RBC/100 WBC (Bld) [Ratio] 0.0 /100 WBC Normal [facility] Comment on above: Order Comment: Speci men Type: BLOOD SPECIMENOrdering Facility: [facility] Address: [address] [place] [address] Performed By: #### 5 7021-8 ####[facility] [id number] [place] [address] [place] Platelet mean volume (Bld) [Entitic vol] 10.2 fL Normal 9.0-12.7 [facility] Comment on above: Order Comment: Speci men Type: BLOOD SPECIMENOrdering Facility: [facility] Address: [address] [place] [address] Performed By: #### 5 7021-8 ####[facility] [id number] [place] [address] [place] Platelets (Bld) [#/Vol] 179 10*3/uL Normal 150-400 [facility] Comment on above: Order Comment: Speci men Type: BLOOD SPECIMENOrdering Facility: [facility] Address: [address] [place] [address] Result Comment: No c lot detected. Performed By: #### 5 7021-8 ####[facility] [id number] [place] [address] [place] RBC (Bld) [#/Vol] 4.58 10*6/uL Normal 3.90-5.20 [facility] Comment on above: Order Comment: Speci men Type: BLOOD SPECIMENOrdering Facility: [facility] Address: [address] [place] [address] Performed By: #### 5 7021-8 ####[facility] [id number] [place] [address] [place] WBC (Bld) [#/Vol] 7.45 10*3/uL Normal 3.70-11.00 [facility] Comment on above: Order Comment: Speci men Type: BLOOD SPECIMENOrdering Facility: [facility] Address: [address] [place] [address] Performed By: #### 5 7021-8 ####[facility] [id number] [place] [id number] [place] Ferritin SerPl-mCncon 2022 Ferritin [Mass/Vol] 103.0 ng/mL Normal 14.7-205.1 [facility] Comment on above: Order Comment: Speci men Type: BLOOD SPECIMENOrdering Facility: [facility] Address: [address] [place] [address] Performed By: #### 2 276-4, 01781-1 ####[facility] LABCLIA [id number] [place] [address] [place] Iron and Iron binding capaci ty panelon 03-12-2023 Iron [Mass/Vol] 31 ug/dL Low 41-186 [facility] Comment on above: Order Comment: Speci men Type: BLOOD SPECIMENOrdering Facility: [facility] Address: [address] [place] [address] Performed By: #### 2 276-4, 76220-4 ####[facility] LABCLIA [id number] [place] [address] [place] Iron binding capacity [Mass/Vol] 317 ug/dL Normal 232-386 [facility] Comment on above: Order Comment: Speci men Type: BLOOD SPECIMENOrdering Facility: [facility] Address: [address] [place] [address] Performed By: #### 2 276-4, 28369-2 ####[facility] LABCLIA [id number] [place] [address] [place] Iron/TIBC [Molar ratio] 9.8 % Low 15.0-57.0 [facility] Comment on above: Order Comment: Speci men Type: BLOOD SPECIMENOrdering Facility: [facility] Address: [address] [place] [address] Performed By: #### 2 276-4, 73786-8 ####[facility] LABCLIA [id number] [place] [id number] [place] CNPNon 02-04-2023 CNPN Telephone (HEMAWS) AINSLEY SORENSON ([id number]) 1935 F Date Time Provider Department 02/04/23 SARAH THORNE During your visit today, we recorded the following information about you: Sarah Thorne LISW 02/04/2023 2:12 PM Signed Pt noted on [facility] 1st time treatment report. Pt has [...] Status:Closed by SARAH THORNE on 02/04/23 Normal [facility] CNOVSPon 01-25-2023 CNOVSP Visit (SP) Office (HEMAWS) AINSLEY SORENSON ([id number]) 1935 F Date Time Provider Department 01/25/23 [...] which included preparing to see the patient, [id number] patient care, completing clinical documentation, obtaining and/or reviewing separately obtained history, counseling and educating the patient/family/caregiv er, ordering medications, tests, or procedures, communicating with other HCPs (not separately reported), and communicating results to the patient/family/caregiv er. Electronically Signed: Stu Schaeffer MD January 25, 2023 1:08 PM Referring Provider: ZORAN DUMONT [[id number]] Allergies As of Date: 01/25/2023 Noted Allergy Reaction AUGMENTIN (AMOXICILLIN-POT CLAVUL*11/11/2012 6 - Diarrhea CIPROFLOXACIN 07/18/2010 2 - Rash LEVAQUIN (LEVOFLOXACIN) 04/24/2013 2 - Rash Comments: itching rash Date Reviewed: 01/25/2023 Reviewed by: Angel Bailey RN - Fully Assessed Reason for Visit: New Patient Evaluation [154] Visit Diagnosis:Iron deficiency anemia, unspecified iron deficiency anemia type [D50.9] Order(s):CONSULT TO HEMATOLOGY [9014] Order #: [id number]: 1 CBC + DIFF [SQCBCDIF] Order #: [id number] STANDING FERRITIN BLD [SQFERR] Order #: [id number] STANDING IRON + TIBC [SQIRON] Order #: [id number] STANDING Follow-up and Disposition History for Encounter Date Provider Department (more content not included)... Normal [facility] CNPNon 01-06-2023 CNPN Telephone (MINNIE) AINSLEY SORENSON ([id number]) 1935 F Date Time Provider Department 01/06/23 STU SCHAEFFER During your visit today, we recorded the following information about you: Ximena Odonnell 01/06/2023 1:25 PM Signed Please review and advise. CONSULT TO HEMATOLOGY Status: Needs Scheduling Requested appt date: Authorizing: Zoran Dumont PA-C in [facility] Referral: [id number] (Authorized) Expires: 01/04/2024 Priority: Routine Diagnosis: Iron [...] Status:Closed by JOHANNA CARLSON on 01/06/23 Normal [facility] FERRITIN BLDon 01-05-2023 Ferritin [Mass/Vol] 58.2 ng/mL 14.7 - 2 05.1 ng/mL [facility] Iron and Iron binding capaci ty panelon 01-05-2023 Iron [Mass/Vol] 20 ug/dL Low 41 - 186 ug/dL [facility] Iron binding capacity [Mass/Vol] 466 ug/dL High 232 - 386 ug/dL [facility] Iron/TIBC [Molar ratio] 4.3 % Low 15.0 - 57.0 % [facility] CBC W Auto Differential pane l (Bld)on 01-04-2023 Basophils (Bld) [#/Vol] 0.09 10*3/uL <0.11 k/uL [facility] Basophils/100 WBC (Bld) 1.1 % [facility] Differential cell count method Nom (Bld) Auto [facility] Eosinophils (Bld) [#/Vol] 0.09 10*3/uL <0.46 k/uL [facility] Eosinophils/100 WBC (Bld) 1.1 % [facility] Erythrocyte distribution width (RBC) [Ratio] 21.9 % High 11.5 - 15.0 % [facility] Hematocrit (Bld) [Volume fraction] 36.5 % 36.0 - 46.0 % [facility] Hemoglobin (Bld) [Mass/Vol] 9.9 g/dL Low 11.5 - 15.5 g/dL [facility] Immature granulocytes (Bld) [#/Vol] 0.04 10*3/uL <0.10 k/uL [facility] Immature granulocytes/100 WBC (Bld) 0.5 % [facility] Lymphocytes (Bld) [#/Vol] 1.48 10*3/uL 1.00 - 4.00 k/uL [facility] Lymphocytes/100 WBC (Bld) 17.4 % [facility] MCH (RBC) [Entitic mass] 21.3 pg Low 26.0 - 34.0 pg [facility] MCHC (RBC) [Mass/Vol] 27.1 g/dL Low 30.5 - 36.0 g/dL [facility] MCV (RBC) [Entitic vol] 78.5 fL Low 80.0 - 100.0 fL [facility] Monocytes (Bld) [#/Vol] 0.55 10*3/uL <0.87 k/uL [facility] Monocytes/100 WBC (Bld) 6.4 % [facility] Neutrophils (Bld) [#/Vol] 6.28 10*3/uL 1.45 - 7.50 k/uL [facility] Neutrophils/100 WBC (Bld) 73.5 % [facility] Nucleated RBC (Bld) [#/Vol] <0.01 k/uL [facility] Nucleated RBC/100 WBC (Bld) [Ratio] 0.0 /100 WBC [facility] Platelet mean volume (Bld) [Entitic vol] [facility] Platelets (Bld) [#/Vol] 211 10*3/uL 150 - 400 k/uL [facility] RBC (Bld) [#/Vol] 4.65 10*6/uL 3.90 - 5.2 0 m/uL [facility] WBC (Bld) [#/Vol] 8.53 10*3/uL 3.70 - 11. 00 k/uL [facility] Basophils (Bld) [#/Vol] 0.09 10*3/uL Normal <0.11 [facility] Comment on above: Order Comment: Speci men Type: BLOOD SPECIMENOrdering Facility: [facility] [facility] Address: [address] [place] [address] Performed By: #### 5 7021-8 ####[facility] LABCLIA [id number] [place] [address] [place] Basophils/100 WBC (Bld) 1.1 % Normal [facility] Comment on above: Order Comment: Speci men Type: BLOOD SPECIMENOrdering Facility: [facility] Address: [address] [place] [address] Performed By: #### 5 7021-8 ####[facility] LABCLIA [id number] [place] [address] [place] Differential cell count method Nom (Bld) Auto Normal [facility] Comment on above: Order Comment: Speci men Type: BLOOD SPECIMENOrdering Facility: [facility] Address: [address] [place] [address] Performed By: #### 5 7021-8 ####[facility]CLIA [id number] [place] [address] [place] Eosinophils (Bld) [#/Vol] 0.09 10*3/uL Normal <0.46 [facility] Comment on above: Order Comment: Speci men Type: BLOOD SPECIMENOrdering Facility: [facility] Address: [address] [place] [address] Performed By: #### 5 7021-8 ####[facility]CLIA [id number] [place] [address] [place] Eosinophils/100 WBC (Bld) 1.1 % Normal [facility] Comment on above: Order Comment: Speci men Type: BLOOD SPECIMENOrdering Facility: [facility] Address: [address] [place] [address] Performed By: #### 5 7021-8 ####[facility]CLIA [id number] [place] [address] [place] Erythrocyte distribution width (RBC) [Ratio] 21.9 % High 11.5-15.0 [facility] Comment on above: Order Comment: Speci men Type: BLOOD SPECIMENOrdering Facility: [facility] Address: [address] [place] [address] Performed By: #### 5 7021-8 ####[facility]CLIA [id number] [place] [address] [place] Hematocrit (Bld) [Volume fraction] 36.5 % Normal 36.0-46.0 [facility] Comment on above: Order Comment: Speci men Type: BLOOD SPECIMENOrdering Facility: [facility] Address: [address] [place] [address] Performed By: #### 5 7021-8 ####[facility]CLIA [id number] [place] [address] [place] Hemoglobin (Bld) [Mass/Vol] 9.9 g/dL Low 11.5-15.5 [facility] Comment on above: Order Comment: Speci men Type: BLOOD SPECIMENOrdering Facility: [facility] Address: [address] [place] [address] Performed By: #### 5 7021-8 ####[facility] LABIA [id number] [place] [address] [place] Immature granulocytes (Bld) [#/Vol] 0.04 10*3/uL Normal <0.10 [facility] Comment on above: Order Comment: Speci men Type: BLOOD SPECIMENOrdering Facility: [facility] Address: [address] [place] [address] Performed By: #### 5 7021-8 ####[facility]IA [id number] [place] [address] [place] Immature granulocytes/100 WBC (Bld) 0.5 % Normal [facility] Comment on above: Order Comment: Speci men Type: BLOOD SPECIMENOrdering Facility: [facility] Address: [address] [place] [address] Performed By: #### 5 7021-8 ####[facility]CLIA [id number] [place] [address] [place] Lymphocytes (Bld) [#/Vol] 1.48 10*3/uL Normal 1.00-4.00 [facility] Comment on above: Order Comment: Speci men Type: BLOOD SPECIMENOrdering Facility: [facility] Address: [address] [place] [address] Performed By: #### 5 7021-8 ####[facility]CLIA [id number] [place] [address] [place] Lymphocytes/100 WBC (Bld) 17.4 % Normal [facility] Comment on above: Order Comment: Speci men Type: BLOOD SPECIMENOrdering Facility: [facility] Address: [address] [place] [address] Performed By: #### 5 7021-8 ####[facility] LABIA [id number] [place] [address] [place] MCH (RBC) [Entitic mass] 21.3 pg Low 26.0-34.0 [facility] Comment on above: Order Comment: Speci men Type: BLOOD SPECIMENOrdering Facility: [facility] Address: [address] [place] [address] Performed By: #### 5 7021-8 ####[facility] LABIA [id number] [place] [address] [place] MCHC (RBC) [Mass/Vol] 27.1 g/dL Low 30.5-36.0 [facility] Comment on above: Order Comment: Speci men Type: BLOOD SPECIMENOrdering Facility: [facility] Address: [address] [place] [address] Performed By: #### 5 7021-8 ####[facility] LABIA [id number] [place] [address] [place] MCV (RBC) [Entitic vol] 78.5 fL Low 80.0-100.0 [facility] Comment on above: Order Comment: Speci men Type: BLOOD SPECIMENOrdering Facility: [facility] Address: [address] [place] [address] Performed By: #### 5 7021-8 ####[facility]CLIA [id number] [place] [address] [place] Monocytes (Bld) [#/Vol] 0.55 10*3/uL Normal <0.87 [facility] Comment on above: Order Comment: Speci men Type: BLOOD SPECIMENOrdering Facility: [facility] Address: [address] [place] [address] Performed By: #### 5 7021-8 ####[facility]CLIA [id number] [place] [address] [place] Monocytes/100 WBC (Bld) 6.4 % Normal [facility] Comment on above: Order Comment: Speci men Type: BLOOD SPECIMENOrdering Facility: [facility] Address: [address] [place] [address] Performed By: #### 5 7021-8 ####[facility]CLIA [id number] [place] [address] [place] Neutrophils (Bld) [#/Vol] 6.28 10*3/uL Normal 1.45-7.50 [facility] Comment on above: Order Comment: Speci men Type: BLOOD SPECIMENOrdering Facility: [facility] Address: [address] [place] [address] Performed By: #### 5 7021-8 ####[facility]CLIA [id number] [place] [address] [place] Neutrophils/100 WBC (Bld) 73.5 % Normal [facility] Comment on above: Order Comment: Speci men Type: BLOOD SPECIMENOrdering Facility: [facility] Address: [address] [place] [address] Performed By: #### 5 7021-8 ####[facility]CLIA [id number] [place] [address] [place] Nucleated RBC (Bld) [#/Vol] 10*3/uL Normal <0.01 [facility] Comment on above: Order Comment: Speci men Type: BLOOD SPECIMENOrdering Facility: [facility] Address: [address] [place] [address] Performed By: #### 5 7021-8 ####[facility]CLIA [id number] [place] [address] [place] Nucleated RBC/100 WBC (Bld) [Ratio] 0.0 /100 WBC Normal [facility] Comment on above: Order Comment: Speci men Type: BLOOD SPECIMENOrdering Facility: [facility] Address: [address] [place] [address] Performed By: #### 5 7021-8 ####[facility] LABIA [id number] [place] [address] [place] Platelet mean volume (Bld) [Entitic vol] Normal [facility] Comment on above: Order Comment: Speci men Type: BLOOD SPECIMENOrdering Facility: [facility] Address: [address] [place] [address] Result Comment: Unab le to Report. Performed By: #### 5 7021-8 ####[facility] LABIA [id number] [place] [address] [place] Platelets (Bld) [#/Vol] 211 10*3/uL Normal 150-400 [facility] Comment on above: Order Comment: Speci men Type: BLOOD SPECIMENOrdering Facility: [facility] Address: [address] [place] [address] Result Comment: Resu lts checked and verified.No clot detected. Performed By: #### 5 7021-8 ####[facility]CLIA [id number] [place] [address] [place] RBC (Bld) [#/Vol] 4.65 10*6/uL Normal 3.90-5.20 [facility] Comment on above: Order Comment: Speci men Type: BLOOD SPECIMENOrdering Facility: [facility] Address: [place] [address] Performed By: #### 5 7021-8 ####[facility] LABIA [id number] [place] [address] [place] WBC (Bld) [#/Vol] 8.53 10*3/uL Normal 3.70-11.00 [facility] Comment on above: Order Comment: Speci men Type: BLOOD SPECIMENOrdering Facility: [facility] Address: [place] [address] Performed By: #### 5 7021-8 ####[facility] LABCLIA [id number] [place] [address] [place] CNOVon 01-04-2023 CNOV Office Visit (INTMWS ) AINSLEY SORENSON ([id number]) 1935 F Date Time Provider Department 01/04/23 [...] her appts, has to drive in from [place] and states it's a lot every time [...] focal neurologic (more content not included)... Normal [facility] Angelo 01-04-2023 [facility] Telephone (FAMPWS) AINSLEY SORENSON ([id number]) 1935 F Date Time Provider Department 01/04/23 [...] appt date: Authorizing: Zoran Dumont PA-C in [facility] Referral: [id number] (Authorized) Expires: 01/04/2024 Priority: Routine Diagnosis: Iron deficiency anemia, unspecified iron deficiency anemia type [D50.9] Comments Alexandra Michel RN 01/04/2023 4:31 PM Signed OK to schedule with first available. KEYONNA Bull Stephanie 01/05/2023 8:52 AM Signed LM for a return call. When she calls, please schedule first available [employer] re: anemia that works for the patient. [...] Status:Closed by MARYJANE VINES on 01/07/23 Normal [facility] Ferritin SerPl-mCncon 2022 Ferritin [Mass/Vol] 58.2 ng/mL Normal 14.7-205.1 [facility] Comment on above: Order Comment: Speci men Type: BLOOD SPECIMENOrdering Facility: [facility] Address: [address] [place] [address] Performed By: #### 5 0190-8, 6-4 ####[facility]CLIA [id number] [place] [address] [place] Iron and Iron binding capaci ty panelon 01-04-2023 Iron [Mass/Vol] 20 ug/dL Low 41-186 [facility] Comment on above: Order Comment: Speci men Type: BLOOD SPECIMENOrdering Facility: [facility] Address: [address] [place] [address] Performed By: #### 5 0190-8, 2275-4 ####[facility] LABCLIA [id number] [place] [address] [place] Iron binding capacity [Mass/Vol] 466 ug/dL High 232-386 [facility] Comment on above: Order Comment: Speci men Type: BLOOD SPECIMENOrdering Facility: [facility] Address: [address] [place] [address] Performed By: #### 5 0190-8, 2275-06 ####[facility]CLIA [id number] [place] [address] [place] Iron/TIBC [Molar ratio] 4.3 % Low 15.0-57.0 [facility] Comment on above: Order Comment: Speci men Type: BLOOD SPECIMENOrdering Facility: [facility] Address: [address] [place] [address] Performed By: #### 5 0190-8, 2275- ####[facility]CLIA [id number] [place] [address] [place] CBC W Auto Differential pane l (Bld)on 11-13-2022 Basophils (Bld) [#/Vol] 0.05 10*3/uL <0.11 k/uL [facility] Basophils/100 WBC (Bld) 0.5 % [facility] Differential cell count method Nom (Bld) Auto [facility] Eosinophils (Bld) [#/Vol] <0.46 k/uL [facility] Eosinophils/100 WBC (Bld) 0.1 % [facility] Erythrocyte distribution width (RBC) [Ratio] 24.2 % High 11.5 - 15.0 % [facility] Hematocrit (Bld) [Volume fraction] 31.8 % Low 36.0 - 46.0 % [facility] Hemoglobin (Bld) [Mass/Vol] 9.0 g/dL Low 11.5 - 15.5 g/dL [facility] Immature granulocytes (Bld) [#/Vol] 0.05 10*3/uL <0.10 k/uL [facility] Immature granulocytes/100 WBC (Bld) 0.5 % [facility] Lymphocytes (Bld) [#/Vol] 0.81 10*3/uL Low 1.00 - 4.00 k/uL [facility] Lymphocytes/100 WBC (Bld) 7.9 % [facility] MCH (RBC) [Entitic mass] 19.7 pg Low 26.0 - 34.0 pg [facility] MCHC (RBC) [Mass/Vol] 28.3 g/dL Low 30.5 - 36.0 g/dL [facility] MCV (RBC) [Entitic vol] 69.6 fL Low 80.0 - 100.0 fL [facility] Monocytes (Bld) [#/Vol] 0.88 10*3/uL High <0.87 k/uL [facility] Monocytes/100 WBC (Bld) 8.6 % [facility] Neutrophils (Bld) [#/Vol] 8.40 10*3/uL High 1.45 - 7.50 k/uL [facility] Neutrophils/100 WBC (Bld) 82.4 % [facility] Nucleated RBC (Bld) [#/Vol] <0.01 k/uL [facility] Nucleated RBC/100 WBC (Bld) [Ratio] 0.0 /100 WBC [facility] Platelet mean volume (Bld) [Entitic vol] [facility] Platelets (Bld) [#/Vol] 172 10*3/uL 150 - 400 k/uL [facility] RBC (Bld) [#/Vol] 4.57 10*6/uL 3.90 - 5.2 0 m/uL [facility] WBC (Bld) [#/Vol] 10.20 10*3/uL 3.70 - 11 .00 k/uL [facility] XR Radius and Ulna - right A P and Lateralon 05-16-2021 IMPRESSION: No acute fractures demonstrated in the right radius or right ulna. There is mild soft tissue prominence in the mid forearm. 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 Trans[facility] Date/Time: May 16 2021 1:42P Dictated by : MEHREEN AYERS MD This examination was interpreted and the report reviewed and electronically signed by: MEHREEN AYERS MD on May 16 2021 1:45PM [facility] DIVISION OF RADIOLOGY * * *Final Report* [...] AND DIVISION OF RADIOLOGY Provider, [facility] - 05/16/2021 * * *Final Report* * [...] soft tissue prominence in the mid forearm. 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[employer] Transcribe Date/Time: May 16 2021 1:42P Dictated by : MEHREEN AYERS MD This examination was interpreted and the report reviewed and electronically signed by: MEHREEN AYERS MD on May 16 2021 1:45PM EST [facility] Radiology Study observation (narrative) [facility] XR Radius and Ulna - right A P and LateralOrdered By: [facility] Provider on 05-16-2021 [facility] Vital Signs Date Time Vital Sign Value Performing Clinician Faci lity 12-10-2023 13:59-0400 Body mass index (BMI) [Ratio] 17.35 kg/m2 Shonda Older DIRECTOR [employer] Work Phone: [facility] 12-10-2023 13:59-0400 Body weight 47.3 kg Shonda Older DIRECTOR [employer] Work Phone: [facility] 12-10-2023 13:59-0400 Diastolic blood pressure 74 mm[Hg] Shonda Older DIRECTOR [employer] Work Phone: [facility] 12-10-2023 13:59-0400 Heart rate 68 /min Shonda Older DIRECTOR [employer] Work Phone: [facility] 12-10-2023 13:59-0400 SaO2% (BldA) [Mass fraction] 100 % Shonda Older DIRECTOR [employer] Work Phone: [facility] 12-10-2023 13:59-0400 Systolic blood pressure 128 mm[Hg] Shonda Older DIRECTOR [employer] Work Phone: [facility] 08-13-2023 13:31-0400 Body mass index (BMI) [Ratio] 18.6 kg/m2 Shonda Older DIRECTOR [employer] Work Phone: [facility] 08-13-2023 13:31-0400 Body weight 50.71 kg Shonda Older DIRECTOR [employer] Work Phone: [facility] 08-13-2023 13:31-0400 Diastolic blood pressure 66 mm[Hg] Shonda Older DIRECTOR [employer] Work Phone: [facility] 08-13-2023 13:31-0400 Heart rate 85 /min Shonda Older DIRECTOR [employer] Work Phone: [facility] 08-13-2023 13:31-0400 SaO2% (BldA) [Mass fraction] 96 % Shonda Older DIRECTOR [employer] Work Phone: [facility] 08-13-2023 13:31-0400 Systolic blood pressure 122 mm[Hg] Shnoda Older DIRECTOR [employer] Work Phone: [facility] 04-26-2023 13:13-0500 Body weight 48.99 kg Shonda Older DIRECTOR [employer] Work Phone: [facility] 04-26-2023 13:13-0500 Diastolic blood pressure 70 mm[Hg] Shonda Older DIRECTOR [employer] Work Phone: [facility] 04-26-2023 13:13-0500 Heart rate 72 /min Shonda Older DIRECTOR [employer] Work Phone: [facility] 04-26-2023 13:13-0500 Respiratory rate 16 /min Shonda Older DIRECTOR [employer] Work Phone: [facility] 04-26-2023 13:13-0500 Systolic blood pressure 128 mm[Hg] Shonda Older DIRECTOR [employer] Work Phone: [facility] 02-26-2023 13:00-0500 Body temperature 97.59 [degF] Treatment Wstr Work Phone: [facility] 02-26-2023 13:00-0500 Diastolic blood pressure 70 mm[Hg] Treatment Wstr Work Phone: [facility] 02-26-2023 13:00-0500 Heart rate 81 /min Treatment Wstr Work Phone: [facility] 02-26-2023 13:00-0500 Systolic blood pressure 137 mm[Hg] Treatment Wstr Work Phone: [facility] 02-05-2023 13:33-0500 Body temperature 97.39 [degF] Treatment Wstr Work Phone: [facility] 02-05-2023 13:33-0500 Diastolic blood pressure 81 mm[Hg] Treatment Wstr Work Phone: [facility] 02-05-2023 13:33-0500 Heart rate 85 /min Treatment Wstr Work Phone: [facility] 02-05-2023 13:33-0500 Respiratory rate 18 /min Treatment Wstr Work Phone: [facility] 02-05-2023 13:33-0500 SaO2% (BldA) [Mass fraction] 97 % Treatment Wstr Work Phone: [facility] 02-05-2023 13:33-0500 Systolic blood pressure 118 mm[Hg] Treatment Wstr Work Phone: [facility] 01-25-2023 12:52-0500 Body height 165.1 cm Stu Schaeffer MD Work Phone: [facility] 01-25-2023 12:52-0500 Body temperature 97.9 [degF] Stu Schaeffer MD Work Phone: [facility] 01-25-2023 12:52-0500 Body weight 49.44 kg Stu Schaeffer MD Work Phone: [facility] 01-25-2023 12:52-0500 Diastolic blood pressure 74 mm[Hg] Stu Schaeffer MD Work Phone: [facility] 01-25-2023 12:52-0500 Heart rate 67 /min Stu Schaeffer MD Work Phone: [facility] 01-25-2023 12:52-0500 SaO2% (BldA) [Mass fraction] 99 % Stu Schaeffer MD Work Phone: [facility] 01-25-2023 12:52-0500 Systolic blood pressure 165 mm[Hg] Stu Schaeffer MD Work Phone: [facility] 01-04-2023 12:16-0400 Body height 167.6 cm Zoran Dumont PA-C Work Phone: [facility] 01-04-2023 12:16-0400 Body temperature 97.2 [degF] Zoran Denbow PA-C Work Phone: [facility] 01-04-2023 12:16-0400 Body weight 46.27 kg Zoran Denbow PA-C Work Phone: [facility] 01-04-2023 12:16-0400 Diastolic blood pressure 52 mm[Hg] Zoran Denbow PA-C Work Phone: [facility] 01-04-2023 12:16-0400 Heart rate 80 /min Zoran Denbow PA-C Work Phone: [facility] 01-04-2023 12:16-0400 Respiratory rate 12 /min Zoran Denbow PA-C Work Phone: [facility] 01-04-2023 12:16-0400 SaO2% (BldA) [Mass fraction] 100 % Zoran Denbow PA-C Work Phone: [facility] 01-04-2023 12:16-0400 Systolic blood pressure 102 mm[Hg] Zoran Denbow PA-C Work Phone: [facility] 11-13-2022 12:52-0400 Body height 167.6 cm Zoran Denbow PA-C Work Phone: [facility] 11-13-2022 12:52-0400 Body temperature 98.01 [degF] Zoran Denbow PA-C Work Phone: [facility] 11-13-2022 12:52-0400 Body weight 44.91 kg Zoran Denbow PA-C Work Phone: [facility] 11-13-2022 12:52-0400 Diastolic blood pressure 70 mm[Hg] Zoran Denbow PA-C Work Phone: [facility] 11-13-2022 12:52-0400 Heart rate 84 /min Zoran Denbow PA-C Work Phone: [facility] 11-13-2022 12:52-0400 Respiratory rate 12 /min Zoran Denbow PA-C Work Phone: [facility] 11-13-2022 12:52-0400 SaO2% (BldA) [Mass fraction] 98 % Zoran VALENTE-Immanuel Work Phone: [facility] 11-13-2022 12:52-0400 Systolic blood pressure 140 mm[Hg] Zoran Dumont PA-C Work Phone: [facility] 08-21-2022 14:20-0400 Body temperature 98.8 [degF] Shonda Older DIRECTOR [employer] Work Phone: [facility] 08-21-2022 14:20-0400 Body weight 45.36 kg Shonda Older DIRECTOR [employer]ICAL E[employer] Work Phone: [facility] 08-21-2022 14:20-0400 Diastolic blood pressure 52 mm[Hg] Shonda Older DIRECTOR [employer]ICAL E[employer] Work Phone: [facility] 08-21-2022 14:20-0400 Heart rate 72 /min Shonda Older DIRECTOR [employer]ICAL E[employer] Work Phone: [facility] 08-21-2022 14:20-0400 Respiratory rate 16 /min Shonda Older DIRECTOR [employer] Work Phone: [facility] 08-21-2022 14:20-0400 SaO2% (BldA) [Mass fraction] 99 % Shonda Older DIRECTOR [employer]ICAL [employer] Work Phone: [facility] 08-21-2022 14:20-0400 Systolic blood pressure 132 mm[Hg] Shonda Older DIRECTOR [employer]ICAL [employer] Work Phone: [facility] 05-29-2022 16:22-0500 Body height 167.6 cm Ming Mcknight MD Work Phone: [facility] 05-29-2022 16:22-0500 Body temperature 97.39 [degF] Ming Mcknight MD Work Phone: [facility] 05-29-2022 16:22-0500 Body weight 46.72 kg Ming Mcknight MD Work Phone: [facility] 05-29-2022 16:22-0500 Diastolic blood pressure 42 mm[Hg] Ming Mcknight MD Work Phone: [facility] 05-29-2022 16:22-0500 Heart rate 83 /min Ming Mcknight MD Work Phone: [facility] [facility] 05-29-2022 16:22-0500 Respiratory rate 12 /min Ming Mcknight MD Work Phone: [facility] 05-29-2022 16:22-0500 SaO2% (BldA) [Mass fraction] 99 % Ming Mcknight MD Work Phone: [facility] 05-29-2022 16:22-0500 Systolic blood pressure 98 mm[Hg] Ming Mcknight MD Work Phone: [facility] 01-30-2022 10:54-0500 Body weight 45.36 kg Mindy Mancia MD Work Phone: [facility] 01-30-2022 10:54-0500 Diastolic blood pressure 56 mm[Hg] Mindy Mancia MD Work Phone: [facility] 01-30-2022 10:54-0500 Systolic blood pressure 94 mm[Hg] Mindy Mancia MD Work Phone: [facility] 01-23-2022 14:24-0400 Body weight 45.81 kg Shonda Older DIRECTOR MEDICAL ECONOMICS.[employer] Work Phone: [facility] 01-23-2022 14:24-0400 Diastolic blood pressure 68 mm[Hg] Shonda Older DIRECTOR MEDICAL ECONOMICS.[employer] Work Phone: [facility] 01-23-2022 14:24-0400 Heart rate 64 /min Shonda Older DIRECTOR MEDICAL ECONOMICS.[employer] Work Phone: [facility] 01-23-2022 14:24-0400 Respiratory rate 16 /min Shonda Older DIRECTOR MEDICAL ECONOMICS.[employer] Work Phone: [facility] 01-23-2022 14:24-0400 Systolic blood pressure 118 mm[Hg] Shonda Older DIRECTOR MEDICAL ECONOMICS.[employer] Work Phone: [facility] 11-28-2021 16:10-0400 Body height 167.6 cm Ming Mcknight MD Work Phone: [facility] 11-28-2021 16:10-0400 Body temperature 98.71 [degF] Ming Mcknight MD Work Phone: [facility] 11-28-2021 16:10-0400 Body weight 47.17 kg Ming Mcknight MD Work Phone: [facility] 11-28-2021 16:10-0400 Diastolic blood pressure 70 mm[Hg] Ming Mcknight MD Work Phone: [facility] 11-28-2021 16:10-0400 Heart rate 74 /min Ming Mcknight MD Work Phone: [facility] 11-28-2021 16:10-0400 Respiratory rate 12 /min Ming Mcknight MD Work Phone: [facility] 11-28-2021 16:10-0400 SaO2% (BldA) [Mass fraction] 96 % Ming Mcknight MD Work Phone: [facility] 11-28-2021 16:10-0400 Systolic blood pressure 120 mm[Hg] Ming Mcknight MD Work Phone: [facility] 11-26-2021 18:01-0400 Body temperature 97.39 [degF] Neela Athy PA-C Work Phone: [facility] 11-26-2021 18:01-0400 Body weight 48.08 kg Neela Athy PA-C Work Phone: [facility] 11-26-2021 18:01-0400 Diastolic blood pressure 90 mm[Hg] Neela Athy PA-C Work Phone: [facility] 11-26-2021 18:01-0400 Heart rate 82 /min Neela Athy PA-C Work Phone: [facility] 11-26-2021 18:01-0400 Respiratory rate 21 /min Neela Athy PA-C Work Phone: [facility] 11-26-2021 18:01-0400 SaO2% (BldA) [Mass fraction] 98 % Neela Oneill PA-C Work Phone: [facility] 11-26-2021 18:01-0400 Systolic blood pressure 180 mm[Hg] Neela Oneill PA-C Work Phone: [facility] 07-25-2021 15:37-0400 Body weight 43.55 kg Mindy Mancia MD Work Phone: [facility] 07-25-2021 15:37-0400 Diastolic blood pressure 62 mm[Hg] Mindy Mancia MD Work Phone: [facility] 07-25-2021 15:37-0400 Systolic blood pressure 110 mm[Hg] Mindy Mancia MD Work Phone: [facility] Encounters Encounter Date Encounter Type Care Provider Facility Start: 12-24-2023 End: 12-24-2023 Telephone encounter Ming Mcknight MD Work Phone: [facility] Comment on above: Results Start: 12-17-2023 End: 12-17-2023 ambulatory MING MCKNIGHT Facility:[facility] Start: 12-14-2023 End: 12-14-2023 Telephone encounter Ming Mcknight MD Work Phone: [facility] [place] Comment on above: Patient Update Start: 12-13-2023 End: 12-13-2023 Telephone encounter Shonda Tyler APRN.[employer] Work Phone: [facility] [place] Comment on above: Results Start: 12-10-2023 End: 12-10-2023 ambulatory SHONDA TYLER Facility:[facility] Start: 12-10-2023 End: 12-10-2023 Patient encounter procedure Shonda Tyler APRN.[employer] Work Phone: [facility] [place] Comment on above: Unsteady gait (Prima ry Dx); Tremor of both hands; 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); Hypothyroidism, unspecified type; Hypertensive kidney disease with stage 3a chronic kidney disease (HCC); Stage 3a chronic kidney disease (HCC) Start: 10-04-2023 Refill Ming Berger Work Phone: [facility] [place] Comment on above: Refill Request Start: 09-24-2023 Telephone encounter Krystal Cobb DIRECTOR MEDICAL ECONOMICS.[employer] Work Phone: [facility] Comment on above: Results Start: 09-22-2023 Telephone encounter Shonda Older DIRECTOR MEDICAL ECONOMICS.[employer] Work Phone: [facility] [place] Start: 09-21-2023 End: 09-21-2023 [facility] Facility:[facility] Start: 08-18-2023 Telephone encounter Shonda Older DIRECTOR MEDICAL ECONOMICS.[employer] Work Phone: [facility] [place] Comment on above: Results Start: 08-13-2023 End: 08-13-2023 Patient encounter procedure Shonda Older DIRECTOR MEDICAL ECONOMICS.[employer] Work Phone: [facility] [place] Comment on above: Recent urinary tract infection (Primary Dx); Leukocytes in urine; 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); Diarrhea, unspecified type Refill Request Start: 08-13-2023 End: 08-13-2023 [facility] Facility:[facility] Start: 06-09-2023 Refill Shonda Older DIRECTOR MEDICAL ECONOMICS .[employer] Work Phone: [facility] [place] Comment on above: Refill Request Start: 04-29-2023 Telephone encounter Shonda Older DIRECTOR MEDICAL ECONOMICS.[employer] Work Phone: [facility] [place] Comment on above: Results Start: 04-26-2023 End: 04-26-2023 [facility] Facility:[facility] Start: 04-26-2023 End: 04-26-2023 Patient encounter procedure Shonda Older DIRECTOR MEDICAL ECONOMICS.[employer] Work Phone: [facility] [place] Comment on above: Late onset Alzheimer '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) (Primary Dx); Memory change; Hypothyroidism, unspecified type; Major depressive disorder with single episode, in full remission (HCC); Chronic anxiety; Stage 3a chronic kidney disease (HCC); Diarrhea, unspecified type Start: 03-12-2023 End: 03-12-2023 ambulatory STU SCHAEFFER Facility:[facility] Start: 02-26-2023 End: 02-26-2023 ambulatory Treatment Rm 13 [facility] Work Phone: Hematology/Oncology Comment on above: Other iron deficienc y anemia (Primary Dx); Iron deficiency anemia, unspecified iron deficiency anemia type Start: 02-19-2023 End: 02-19-2023 ambulatory STU SCHAEFFER Facility:[facility] Start: 02-05-2023 End: 02-05-2023 ambulatory Treatment Rm 13 [facility] Work Phone: Hematology/Oncology Comment on above: Iron deficiency anem ia, unspecified iron deficiency anemia type (Primary Dx) Start: 02-04-2023 Telephone encounter Sarah VALDOVINOS Hematology/Oncology Comment on above: 1st Time Treatment ( Non-Oncology) Start: 01-25-2023 End: 01-25-2023 Patient encounter procedure Stu Schaeffer MD Work Phone: [facility] Start: 01-25-2023 End: 01-25-2023 ambulatory Treatment Rm 10 [facility] Work Phone: Hematology/Oncology Comment on above: Iron deficiency anem ia, unspecified iron deficiency anemia type (Primary Dx) Iron deficiency anem ia, unspecified iron deficiency anemia type Start: 01-04-2023 Telephone encounter Ming hahn MD Work Phone: [facility] [place] Comment on above: Orders Start: 01-04-2023 End: 01-04-2023 ambulatory ZORAN DUMONT Facility:[facility] Start: 01-04-2023 End: 01-04-2023 ambulatory ZORAN DUMONT Facility:[facility] Start: 01-04-2023 End: 01-04-2023 Patient encounter procedure Zoran Dumont PA-C Work Phone: [facility] [place] Comment on above: Iron deficiency anem ia, unspecified iron deficiency anemia type (Primary Dx); 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); Gout with manifestations; Need for influenza vaccination Start: 11-17-2022 Telephone encounter Ming hahn MD Work Phone: [facility] [place] Comment on above: Results Start: 11-13-2022 End: 11-13-2022 Patient encounter procedure Zoran Dumont PA-C Work Phone: [facility] [place] Comment on above: Microcytic anemia (P rimary Dx); History of recent blood transfusion; Acute confusion Start: 11-10-2022 Telephone encounter Rainer roberts MD Work Phone: [facility] [place] Comment on above: Results (Critical Hg b.) Start: 08-21-2022 End: 08-21-2022 Patient encounter procedure Shonda Tyler APRN.[employer] Work Phone: [facility] [place] Comment on above: Essential hypertensi on, benign (Primary Dx); Major depressive disorder with single episode, in full remission (HCC); Chronic anxiety; Anemia, unspecified type; Hypothyroidism, unspecified type Start: 06-05-2022 Refill Ming Berger Work Phone: [facility] [place] Comment on above: Refill Request Start: 05-29-2022 End: 05-29-2022 Patient encounter procedure Ming Mcknight MD Work Phone: [facility] [place] Comment on above: Anemia, unspecified type (Primary Dx); Major depressive disorder with single episode, in full remission (HCC); Chronic anxiety; Hypothyroidism, unspecified type; Essential hypertension, benign Start: 05-03-2022 Refill Shonda Tyler APRN .[employer] Work Phone: [facility] [place] Comment on above: Refill Request Start: 02-10-2022 Telephone encounter Ming hahn MD Work Phone: [facility] [place] Comment on above: stool results Start: 02-09-2022 Refill Ming Berger Work Phone: [facility] Comment on above: Refill Request Start: 01-30-2022 End: 01-30-2022 Patient encounter procedure Mindy Mancia MD Work Phone: OB/Gynecology Comment on above: Pessary maintenance (Primary Dx); Incomplete uterovaginal prolapse Start: 01-29-2022 Telephone encounter Mindy Mancia MD Work Phone: OB/Gynecology Comment on above: Patient Update Start: 01-28-2022 Telephone encounter Shonda Jayson PHILLIPS.[employer] Work Phone: [facility] [place] Comment on above: Results Start: 01-26-2022 Telephone encounter Shonda Jayson PHILLIPS.[employer] Work Phone: [facility] [place] Comment on above: Results Start: 01-23-2022 End: 01-23-2022 Patient encounter procedure Shonda Tyler APRN.[employer] Work Phone: [facility] [place] Comment on above: Anemia, unspecified type (Primary Dx); Prediabetes; Major depressive disorder with single episode, in full remission (HCC); Chronic anxiety; 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) Start: 01-12-2022 Telephone encounter Ming hahn MD Work Phone: [facility] [place] Comment on above: Refill Request Start: 01-02-2022 Telephone encounter Ming hahn MD Work Phone: [facility] [place] Comment on above: Patient Update Start: 12-05-2021 Telephone encounter Ming hahn MD Work Phone: [facility] [place] Comment on above: Results Start: 11-28-2021 End: 11-28-2021 Patient encounter procedure Ming Mcknight MD Work Phone: [facility] [place] Comment on above: Vitamin B12 deficien cy (Primary Dx); Gout with manifestations; Vitamin D deficiency; Hypothyroidism, unspecified type; Essential hypertension, benign; Encounter for screening for diabetes mellitus; Elevated glucose Start: 11-26-2021 End: 11-26-2021 Patient encounter procedure Neela Oneill PA-C Work Phone: [facility] Comment on above: Skin infection (Prim ching Dx) Start: 11-11-2021 ambulatory Ming Berger Work Phone: [facility] [place] Start: 10-20-2021 Refill Ming Berger Work Phone: [facility] [place] Comment on above: Refill Request Start: 07-25-2021 End: 07-25-2021 Patient encounter procedure Mindy Mancia MD Work Phone: OB/Gynecology Comment on above: Uterovaginal prolaps e, complete (Primary Dx); Encounter for pessary maintenance Start: 07-05-2021 Refill Ming Berger Work Phone: [facility] [place] Comment on above: Refill Request Start: 05-16-2021 End: 05-16-2021 Subsequent hospital visit by physician Xr [facility] Work Phone: Radiology Comment on above: Injury of right fore arm, initial encounter [X43.292N] Procedures Date Procedure Procedure Detail Performing Clinician Start: 08-13-2023 Urnls dip stick/tabl et rgnt auto w/o microscopy Shonda Tyler DIRECTOR MEDICAL ECONOMICS.[employer] Work Phone: Start: 01-04-2023 INFLUENZA VACCINE, P RSV FREE, AGE 65+ YR, HIGH DOSE, QUADRIVALENT (FLUZONE HIGH-DOSE) Zoran Dumont PA-C Work Phone: Start: 05-16-2021 Radex forearm 2 views T perla Valerio DIRECTOR MEDICAL ECONOMICS.[employer] Work Phone: Plan of Treatment Date Care Activity Detail Author Start: 09-02-2030 Urine microalbumin profile [facility] Start: 12-09-2026 Diabetes Screening Diabetes Screenin g [facility] Start: 04-26-2026 Diabetes Screening Diabetes Screenin g [facility] Start: 11-09-2025 DIABETES SCREEN DIABETES SCREEN [facility] Start: 11-09-2025 Diabetes Screening Diabetes Screenin g [facility] Start: 05-08-2025 DIABETES SCREEN DIABETES SCREEN [facility] Start: 12-09-2024 Covid-19 Vaccine () Covid-19 Vaccine () [facility] Comment on above: Postponed from 11/20 (Declined at this time) Start: 12-09-2024 Covid-19 Vaccine () Covid-19 Vaccine () [facility] Comment on above: Postponed from 11/20 (Declined at this time) Start: 11-28-2024 DIABETES SCREEN DIABETES SCREEN [facility] Start: 08-12-2024 Covid-19 Vaccine () Covid-19 Vaccine () [facility] Comment on above: Postponed from 11/20 (Declined at this time) Start: 08-12-2024 RSV Vaccine (1 - 1-d ose 60+ series) RSV Vaccine (1 - 1-dose 60+ series) [facility] Comment on above: Postponed from 10/18 (Declined at this time) Start: 08-12-2024 RSV Vaccine (1 - 1-d ose 75+ series) RSV Vaccine (1 - 1-dose 75+ series) [facility] Comment on above: Postponed from 10/18 (Declined at this time) Start: 08-12-2024 Shingrix Vaccine (1 of 2) Smith grix Vaccine (1 of 2) [facility] Comment on above: Postponed from 10/18 (Declined at this time) Start: 01-12-2024 End: 01-12-2024 Patient encounter procedure 01/12/2024 1:30 PM EDT Office Visit Geriatrics [address] [place], [place] [id number] Ming Mcknight MD [address] [place], [place] [id number] 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 [facility] Comment on above: Late onset Alzheimer '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) [G30.1, F02.... Start: 12-14-2023 End: 03-14-2024 CBC W Auto Differential panel - Blood COMPLETE BLOOD COUNT AND DIFFERENTIAL Lab Routine Anemia, unspecified type Expected: 12/14/2023, Expires: 03/14/2024 [facility] Work Phone: Comment on above: Expected: 12/14/2023 , Expires: 03/14/2024 Start: 12-10-2023 End: 03-10-2024 CBC W Auto Differential panel - Blood [facility] Work Phone: Comment on above: Expected: 12/10/2023 , Expires: 03/10/2024 Start: 12-10-2023 End: 03-10-2024 Comprehensive metabolic 2000 panel - Serum or Plasma [facility] Comment on above: Expected: 12/10/2023 , Expires: 03/10/2024 Start: 12-10-2023 End: 03-10-2024 Thyrotropin [Units/volume] in Serum or Plasma [facility] Comment on above: Expected: 12/10/2023 , Expires: 03/10/2024 Start: 12-10-2023 End: 03-10-2024 Thyroxine (T4) free [Mass/volume] in Serum or Plasma [facility] Comment on above: Expected: 12/10/2023 , Expires: 03/10/2024 Start: 12-10-2023 End: 03-10-2024 Triiodothyronine (T3) Free [Mass/volume] in Serum or Plasma [facility] Comment on above: Expected: 12/10/2023 , Expires: 03/10/2024 Start: 11-15-2023 End: 11-15-2023 Patient encounter procedure 11/15/2023 2:20 PM EDT Office Visit [facility] [address] [place] [address] Ming Mcknight MD [address] [place] [address] 3 month follow up [facility] Comment on above: 3 month follow up Start: 09-01-2023 End: 12-01-2023 Bacteria identified in Urine by Culture URINE CULTURE Microbiology Routine Recent urinary tract infection Recurrent UTI Expected: 09/01/2023 (Approximate), Expires: 12/01/2023 [facility] Comment on above: Expected: 09/01/2023 (Approximate), Expires: 12/01/2023 Start: 09-01-2023 End: 12-01-2023 Urinalysis complete panel - Urine URINALYSIS, WITH MICROSCOPIC Lab Routine Recent urinary tract infection Recurrent UTI Expected: 09/01/2023 (Approximate), Expires: 12/01/2023 [facility] Work Phone: Comment on above: Expected: 09/01/2023 (Approximate), Expires: 12/01/2023 Start: 04-26-2023 End: 07-26-2023 Comprehensive metabolic 2000 panel - Serum or Plasma [facility] Work Phone: Comment on above: Expected: 04/26/2023 , Expires: 07/26/2023 Start: 04-26-2023 End: 07-26-2023 Thyrotropin [Units/volume] in Serum or Plasma [facility] Work Phone: Comment on above: Expected: 04/26/2023 , Expires: 07/26/2023 Start: 04-26-2023 End: 07-26-2023 Thyroxine (T4) free [Mass/volume] in Serum or Plasma [facility] Work Phone: Comment on above: Expected: 04/26/2023 , Expires: 07/26/2023 Start: 04-26-2023 End: 07-26-2023 Urinalysis complete panel - Urine URINALYSIS WITH MICROSCOPIC, REFLEX CULTURE Lab Routine 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) Memory change Expected: 04/26/2023, Expires: 07/26/2023 [facility] Work Phone: Comment on above: Expected: 04/26/2023 , Expires: 07/26/2023 Start: 03-22-2023 Advance Directive Discussion Advance Directive Discussion [facility] Start: 01-31-2023 DIABETES SCREEN DIABETES SCREEN [facility] Start: 11-20-2022 Covid-19 Vaccine () Covid-19 Vaccine () [facility] Start: 11-13-2022 End: 01-13-2023 Bacteria identified in Urine by Culture [facility] Work Phone: Comment on above: Expected: 11/13/2022 , Expires: 01/13/2023 Start: 11-13-2022 End: 01-13-2023 Ferritin [Mass/volume] in Serum or Plasma [facility] Work Phone: Comment on above: Expected: 11/13/2022 , Expires: 01/13/2023 Start: 11-13-2022 End: 01-13-2023 Iron and Iron binding capacity panel - Serum or Plasma [facility] Work Phone: Comment on above: Expected: 11/13/2022 , Expires: 01/13/2023 Start: 11-13-2022 End: 01-13-2023 URINALYSIS, DIPSTICK ONLY [facility] Work Phone: Comment on above: Expected: 11/13/2022 , Expires: 01/13/2023 Start: 09-21-2022 End: 11-21-2022 Basic metabolic 2000 panel - Serum or Plasma BASIC METABOLIC PNL Lab Routine Essential hypertension, benign Anemia, unspecified type Expected: 09/21/2022 (Approximate), Expires: 11/21/2022 [facility] Work Phone: Comment on above: Expected: 09/21/2022 (Approximate), Expires: 11/21/2022 Start: 09-21-2022 End: 11-21-2022 CBC W Auto Differential panel - Blood CBC + DIFF Lab Routine Essential hypertension, benign Anemia, unspecified type Expected: 09/21/2022 (Approximate), Expires: 11/21/2022 [facility] Work Phone: Comment on above: Expected: 09/21/2022 (Approximate), Expires: 11/21/2022 Start: 06-29-2022 End: 08-29-2022 Thyrotropin [Units/volume] in Serum or Plasma TSH BLD Lab Routine Hypothyroidism, unspecified type Expected: 06/29/2022, Expires: 08/29/2022 [facility] Work Phone: Comment on above: Expected: 06/29/2022 , Expires: 08/29/2022 Start: 05-29-2022 End: 07-29-2022 Erythropoietin (EPO) [Units/volume] in Serum or Plasma ERYTHROPOIETIN/EPO Lab Routine Anemia, unspecified type Expected: 05/29/2022, Expires: 07/29/2022 [facility] Work Phone: Comment on above: Expected: 05/29/2022 , Expires: 07/29/2022 Start: 05-29-2022 End: 07-29-2022 Ferritin [Mass/volume] in Serum or Plasma FERRITIN BLD Lab Routine Anemia, unspecified type Expected: 05/29/2022, Expires: 07/29/2022 [facility] Work Phone: Comment on above: Expected: 05/29/2022 , Expires: 07/29/2022 Start: 05-29-2022 End: 07-29-2022 Iron and Iron binding capacity panel - Serum or Plasma IRON + TIBC Lab Routine Anemia, unspecified type Expected: 05/29/2022, Expires: 07/29/2022 [facility] Work Phone: Comment on above: Expected: 05/29/2022 , Expires: 07/29/2022 Start: 05-29-2022 End: 07-29-2022 Lactate dehydrogenase [Enzymatic activity/volume] in Serum or Plasma LD LACTATE DEHYDRO Lab Routine Anemia, unspecified type Expected: 05/29/2022, Expires: 07/29/2022 [facility] Work Phone: Comment on above: Expected: 05/29/2022 , Expires: 07/29/2022 Start: 05-29-2022 End: 07-29-2022 RETIC COUNT RETIC COUNT Lab Routine Anemia, unspecified type Expected: 05/29/2022, Expires: 07/29/2022 [facility] Work Phone: Comment on above: Expected: 05/29/2022 , Expires: 07/29/2022 Start: 05-04-2022 End: 07-04-2022 Basic metabolic 2000 panel - Serum or Plasma BASIC METABOLIC PNL Lab Routine Hypokalemia Essential hypertension, benign Prediabetes Expected: 05/04/2022, Expires: 07/04/2022 [facility] Work Phone: Comment on above: Expected: 05/04/2022 , Expires: 07/04/2022 Start: 05-04-2022 End: 07-04-2022 CBC W Auto Differential panel - Blood CBC + DIFF Lab Routine Essential hypertension, benign Prediabetes Expected: 05/04/2022, Expires: 07/04/2022 [facility] Work Phone: Comment on above: Expected: 05/04/2022 , Expires: 07/04/2022 Start: 05-04-2022 End: 07-04-2022 Hemoglobin A1c in Blood HGB A1C Lab Routine Prediabetes Expected: 05/04/2022, Expires: 07/04/2022 [facility] Work Phone: Comment on above: Expected: 05/04/2022 , Expires: 07/04/2022 Start: 05-04-2022 End: 07-04-2022 Thyrotropin [Units/volume] in Serum or Plasma TSH BLD Lab Routine Hypothyroidism, unspecified type Expected: 05/04/2022, Expires: 07/04/2022 [facility] Work Phone: Comment on above: Expected: 05/04/2022 , Expires: 07/04/2022 Start: 03-22-2022 ADVANCE DIRECTIVE DISCUSSION ADVANCE DIRECTIVE DISCUSSION [facility] Start: 03-20-2022 End: 05-20-2022 CBC W Auto Differential panel - Blood CBC + DIFF Lab Routine Anemia, unspecified type Expected: 03/20/2022 (Approximate), Expires: 05/20/2022 [facility] Work Phone: Comment on above: Expected: 03/20/2022 (Approximate), Expires: 05/20/2022 Start: 02-27-2022 End: 04-29-2022 Thyrotropin [Units/volume] in Serum or Plasma TSH BLD Lab Routine Hypothyroidism, unspecified type Medication management Expected: 02/27/2022 (Approximate), Expires: 04/29/2022 [facility] Work Phone: Comment on above: Expected: 02/27/2022 (Approximate), Expires: 04/29/2022 Start: 01-26-2022 End: 03-28-2022 CBC W Auto Differential panel - Blood CBC + DIFF Lab Routine Anemia, unspecified type Expected: 01/26/2022, Expires: 03/28/2022 [facility] Work Phone: Comment on above: Expected: 01/26/2022 , Expires: 03/28/2022 Start: 01-23-2022 End: 03-25-2022 CBC W Auto Differential panel - Blood [facility] Work Phone: Comment on above: Expected: 01/23/2022 , Expires: 03/25/2022 Start: 01-23-2022 End: 03-25-2022 Ferritin [Mass/volume] in Serum or Plasma [facility] Work Phone: Comment on above: Expected: 01/23/2022 , Expires: 03/25/2022 Start: 01-23-2022 End: 03-25-2022 Iron and Iron binding capacity panel - Serum or Plasma [facility] Work Phone: Comment on above: Expected: 01/23/2022 , Expires: 03/25/2022 Start: 11-28-2021 End: 01-28-2022 25-hydroxyvitamin D3 [Mass/volume] in Serum or Plasma VITAMIN D 25 HYDROXY Lab Routine Vitamin D deficiency Expected: 11/28/2021, Expires: 01/28/2022 [facility] Work Phone: Comment on above: Expected: 11/28/2021 , Expires: 01/28/2022 Start: 11-28-2021 End: 01-28-2022 CBC W Auto Differential panel - Blood [facility] Work Phone: Comment on above: Expected: 11/28/2021 , Expires: 01/28/2022 Start: 11-28-2021 End: 01-28-2022 Cobalamin (Vitamin B12) [Mass/volume] in Serum or Plasma VITAMIN B12 BLOOD Lab Routine Vitamin B12 deficiency Expected: 11/28/2021, Expires: 01/28/2022 [facility] Work Phone: Comment on above: Expected: 11/28/2021 , Expires: 01/28/2022 Start: 11-28-2021 End: 01-28-2022 Comprehensive metabolic 2000 panel - Serum or Plasma [facility] Work Phone: Comment on above: Expected: 11/28/2021 , Expires: 01/28/2022 Start: 11-28-2021 End: 01-28-2022 Hemoglobin A1c in Blood [facility] Work Phone: Comment on above: Expected: 11/28/2021 , Expires: 01/28/2022 Start: 11-28-2021 End: 01-28-2022 Thyrotropin [Units/volume] in Serum or Plasma TSH BLD Lab Routine Hypothyroidism, unspecified type Expected: 11/28/2021, Expires: 01/28/2022 [facility] Work Phone: Comment on above: Expected: 11/28/2021 , Expires: 01/28/2022 Start: 11-28-2021 End: 01-28-2022 Urate [Mass/volume] in Serum or Plasma URIC ACID BLOOD Lab Routine Gout with manifestations Expected: 11/28/2021, Expires: 01/28/2022 [facility] Work Phone: Comment on above: Expected: 11/28/2021 , Expires: 01/28/2022 Start: 11-11-2021 End: 01-11-2022 CBC panel - Blood by Automated count CBC Lab Routine Hypertensive kidney disease with stage 3a chronic kidney disease (HCC) Expected: 11/11/2021, Expires: 01/11/2022 [facility] Work Phone: Comment on above: Expected: 11/11/2021 , Expires: 01/11/2022 Start: 11-11-2021 End: 01-11-2022 SCHEDULE LAB TESTING SCHEDULE LAB TESTING Lab Routine Expected: 11/11/2021, Expires: 01/11/2022 [facility] Work Phone: Comment on above: Expected: 11/11/2021 , Expires: 01/11/2022 Start: 06-12-2021 COVID-19 VACCINE (4 - Booster for Pfizer series) COVID-19 VACCINE (4 - Booster for Pfizer series) [facility] Start: 04-09-2021 COVID-19 VACCINE (4 - Booster for Pfizer series) COVID-19 VACCINE (4 - Booster for Pfizer series) [facility] Start: 04-09-2021 COVID-19 VACCINE (4 - Pfizer series) COVID-19 VACCINE (4 - Pfizer series) [facility] Start: 03-22-2021 ADVANCE DIRECTIVE DISCUSSION ADVANCE DIRECTIVE DISCUSSION [facility] Start: 1996 RSV Vaccine (1 - 1-d ose 60+ series) RSV Vaccine (1 - 1-dose 60+ series) [facility] Start: 1986 SHINGRIX VACCINE (1 of 2) SMITH GRIX VACCINE (1 of 2) [facility] Bacteria identified in Urine by Culture URINE CULTURE Microbiology Routine Recent urinary tract infection Leukocytes in urine 08/13/2023 2:28 PM EDT [facility] End: 01-25-2024 CBC W Auto Differential panel - Blood CBC + DIFF Lab Routine Iron deficiency anemia, unspecified iron deficiency anemia type Once per week for 6 Occurrences starting 01/25/2023 until 01/25/2024 [facility] Work Phone: Comment on above: Once per week for 6 Occurrences starting 01/25/2023 until 01/25/2024 End: 01-25-2024 Ferritin [Mass/volume] in Serum or Plasma FERRITIN BLD Lab Routine Iron deficiency anemia, unspecified iron deficiency anemia type Once per week for 6 Occurrences starting 01/25/2023 until 01/25/2024 [facility] Work Phone: Comment on above: Once per week for 6 Occurrences starting 01/25/2023 until 01/25/2024 Hemoglobin.gastroint estina l.lower [Presence] in Stool by Immunoassay FECAL OCCULT BLOOD TEST Lab Routine Anemia, unspecified type Ordered: 01/26/2022 [facility] Work Phone: Comment on above: Ordered: 01/26/2022 Hemoglobin.gastroint estina l.lower [Presence] in Stool by Immunoassay FECAL OCCULT BLOOD TEST Lab Routine Anemia, unspecified type Ordered: 05/29/2022 [facility] Work Phone: Comment on above: Ordered: 05/29/2022 End: 01-25-2024 Iron and Iron binding capacity panel - Serum or Plasma IRON + TIBC Lab Routine Iron deficiency anemia, unspecified iron deficiency anemia type Once per week for 6 Occurrences starting 01/25/2023 until 01/25/2024 [facility] Work Phone: Comment on above: Once per week for 6 Occurrences starting 01/25/2023 until 01/25/2024 UA DIP, URINE (POC) UA DIP, URIN E (POC) Lab Routine Recent urinary tract infection Ordered: 08/13/2023 [facility] Work Phone: Comment on above: Ordered: 08/13/2023 [facility] Immunizations Immunization Date Immunization Notes Care Provider Joao thorne 01-04-2023 influenza (HD-IIV4) vaccine, age 65+ yr, high dose, quadrivalent, PF (FLUZONE HIGH-DOSE) Zoran Dumont PA-C Work Phone: [facility] Work Phone: 02-12-2021 COVID-19 vaccine, ag e 12+ yr (Social Moov-m2M StrategiesNTcoComment - PURPLE TOP) Ming Mcknight MD Work Phone: [facility] Work Phone: 12-27-2020 influenza, high-dose , quadrivalent vaccine (FLUZONE HIGH DOSE QUADRIVALENT) Ming Mcknight MD Work Phone: [facility] Work Phone: 09-02-2020 tetanus and diphther ia toxoids, adsorbed, preservative free, for adult use (5 Lf of tetanus toxoid and 2 Lf of diphtheria toxoid) Ming Mcknight MD Work Phone: [facility] Work Phone: 06-13-2020 COVID-19 vaccine, ag e 12+ yr (PFIZER-BIONTECH - PURPLE TOP) Ming Mcknight MD Work Phone: [facility] 05-23-2020 COVID-19 vaccine, ag e 12+ yr (PFIZER-BIONTECH - PURPLE TOP) Ming Mcknight MD Work Phone: [facility] 03-19-2015 pneumococcal conjuga te vaccine, 13 valent Ming Mcknight MD Work Phone: [facility] 07-30-2011 tetanus toxoid, redu rene diphtheria toxoid, and acellular pertussis vaccine, adsorbed Ming Mcknight MD Work Phone: [facility] 09-27-2006 pneumococcal polysaccharide vaccine, 23 valent Ming Mcknight MD Work Phone: [facility] Work Phone: Payers Date Payer Category Payer Medicare MEDICARE MEDICAR E A AND B [id number] 2001-Present [phone] [place] [address] Medicare [id number] 2001 Medicare MEDICARE MEDICAR E A AND B [id number] 2001-Present [phone] [place] [address] Medicare [id number] 2001 Unknown [employer] INSUR [facility] MEDICARE SUPPLEMENT [id number] 2001-Present [phone] [address] [place] [address] Indemnity [id number] 2001 Unknown STATE FARM INSUR [facility] MEDICARE SUPPLEMENT [id number] 2001-Present [phone] [address] [place] [address] Indemnity [id number] 2001 Medicare [id number] 2001 Medicare [id number] Social History Date Type Detail Facility Start: 01-23-2011 End: 01-25-2023 Tobacco smoking status NHIS Ex-smoker [facility] Work Phone: Start: 06-06-2021 End: 12-10-2023 Alcohol intake Current non-drinker of alcohol (finding) [facility] Start: 1935 Sex Assigned At Not on file C [facility] Start: 05-27-2021 End: 01-30-2022 Exposure to SARS-CoV-2 (event) Not sure [facility] Work Phone: Start: 03-22-1972 End: 03-22-1992 History of tobacco use Current smoker [facility] Work Phone: Start: 01-23-2011 End: 01-25-2023 Tobacco use and exposure Smokeless tobacco non-user [facility] Work Phone: Start: 11-25-2021 End: 12-05-2021 Exposure to SARS-CoV-2 (event) Unable to assess [facility] Start: 05-26-2022 History SDOH Alcohol Frequency 1 [facility] Start: 05-26-2022 History SDOH Alcohol Std Drinks 0 [facility] Start: 05-26-2022 History SDOH Social Connections Phone 5 [facility] Start: 05-26-2022 History SDOH Social Connections Membership 2 [facility] Start: 05-26-2022 History SDOH Financial 4 [facility] Start: 05-26-2022 End: 08-21-2022 [facility] Start: 05-26-2022 End: 08-21-2022 Social connection and isolation panel [facility] Do you belong to any clubs or organizations such as alevism groups, unions, fraternal or athletic groups, or school groups? No [facility] Are you now , , , , never or living with a partner? [facility] How often to you hav e a drink containing alcohol? Never [facility] How many standard dr inks containing alcohol do you have on a typical day? Patient does not drink [facility] How hard is it for y ou to pay for the very basics like food, housing, medical care, and heating Not very hard [facility] Do you feel stress - tense, restless, nervous, or anxious, or unable to sleep at night because your mind is troubled all the time - these days [OSQ] Not at all [facility] (I/We) worried wheth er (my/our) food would run out before (I/we) got money to buy more. Never true [facility] Start: 03-22-1972 End: 03-22-1992 History of tobacco use Cigarette Smoker [facility] Clinical Notes 03-19-2015 to 12-24-2023 Telephone Encounter - Isatu Moreno LPN - 12/24/2023 3:59 PM EDTTelephone Encounter - Isatu Moreno LPN - 12/24/2023 3:59 PM EDTTelephone Encounter - Isatu Moreno LPN - 12/24/2023 3:59 PM EDT Note Date & Type Note Facility 12-24-2023 Telephone encounter Note Updated via Simple [employer] Isatu Moreno LPN December 24, 2023 3:59 PM [facility] 12-24-2023 Telephone encounter Note ----- Message from Ming Mcknight MD sent at 12/24/2023 2:33 PM EDT ----- Hb is a little improved from the last time Ming Vargas MD [facility] 12-24-2023 Miscellaneous Notes Updated via [employer] Isatu Moreno LPN December 24, 2023 3:59 PM ----- Message from Ming Mcknight MD sent at 12/24/2023 2:33 PM EDT ----- Hb is a little improved from the last time Ming Vargas MD documented in this encounter [facility] 12-14-2023 Telephone encounter Note Jillian notified and verbalized understanding. Zoran Gamble MA [facility] 12-14-2023 Miscellaneous Notes Jillian notified and verbalized understanding. Zoran Gamble MA I have ordered the cbc. She will need to have a follow up. Ming Vargas MD Patient's Daughter calls and states that they had taken patient to [facility] hospital yesterday. Patient's Hgb was 6.8 [...] Johanna Gamez RN documented in this encounter [facility] 12-14-2023 Telephone encounter Note I have ordered the cbc. She will need to have a follow up. Ming Vargas MD [facility] Work Phone: 12-14-2023 Telephone encounter Note Patient's Daughter calls and states that they had taken patient to [facility] hospital yesterday. Patient's Hgb was 6.8 [...] order to be placed. Johanna Gamez RN [facility] 12-13-2023 Telephone encounter Note Daughter notified, was already on way up from [place] and feels she will just plan on going to ER to be on the safe side. [facility] 12-13-2023 Miscellaneous Notes Daughter notified, was already on way up from [place] and feels she will just plan on going to ER to be on the safe side. She only needs to go to ER if actively bleeding or symptomatic. If not we can look into doing outpt transfusion if needed and as an outpt identify a cause. Thank you Shonda Tyler APRN.CNP Phoned Jillian patient daughter who said she lives in [place]. Went over results notes from Shonda Tyler [employer]IC[employer]PERVISOR, she said she does not see mother stools so she does not know, she said she sleeps a lot but thought it is medications. She said she just got back home from [place], she said so I need to get back in my car and come back to [place] and take her to the ER. Asked [...] Shonda Tyler APRN.CNP documented in this encounter [facility] 12-13-2023 Telephone encounter Note She only needs to go to ER if actively bleeding or symptomatic. If not we can look into doing outpt transfusion if needed and as an outpt identify a cause. Thank you Shonda Tyler APRN.CNP [facility] 12-13-2023 Telephone encounter Note Phoned Jillian patient daughter who said she lives in [place]. Went over results notes from Shonda Tyler [employer] SUPERVISOR, she said she does not see mother stools so she does not know, she said she sleeps a lot but thought it is medications. She said she just got back home from [place], she said so I need to get back in my car and come back to [place] and take her to the ER. Asked if she was her POA for healthcare and she said no, my niece is. So she is calling the niece to tell her she needs to go to the ER for possible blood transfusions. [facility] 12-13-2023 Telephone encounter Note Hgb is low at 7.1? Any active bleeding? Dark sticky stools? Shortness of breath? Lethargy? Chest pain? Palpitations? If symptomatic, she needs to go to ER. Thank you Shonda Tyler APRN.CNP [facility] 12-10-2023 Note HNO ID: [id number] Author: SHONDA TYLER APRN.CNP Service: ? Author [...] Take 1 tablet by mouth once daily. Wpwvagnxmnrda-Lezooyjc-Gydcvd (CENTRUM SILVER) ORAL Tab Take one(1) tablet [...] Screening Completed Adva (more content not included)... [facility] 12-10-2023 History of Presen t illness Narrative [...] Take 1 tablet by mouth once daily. Zpflurkoycoxo-Mbkchbwd-Ulylcq (CENTRUM SILVER) ORAL Tab Take one(1) tablet [...] Shonda Tyler APRN.CNP documented in this encounter [facility] 10-04-2023 Telephone encounter Note The patient has [...] Gamez RN October 04, 2023 8:12 AM [facility] 10-04-2023 Miscellaneous Notes The patient has been [...] 2023 8:12 AM documented in this encounter [facility] 09-24-2023 Telephone encounter Note Left detailed message with daughter. Lilia Richmond MA [facility] 09-24-2023 Miscellaneous Notes Left detailed message with daughter. Lilia Richmond MA The following approved medication requests have been transmitted electronically. Requested Prescriptions Signed Prescriptions Disp Refills sulfamethoxazole-trimethoprim (BACTRIM DS) 800-160 mg per tablet 14 tablet 0 Sig: Take 1 tablet by mouth two times a day for 7 days. Authorizing Provider: KRYSTAL MEZA APRN.[employer] Pts daughter called and is notified of providers results and instructions. She voices understanding and states she was never notified about any antibiotic. Please send antibiotic to [facility] in [place] and call and leave a VM on [...] Krystal Meza APRN.CNP documented in this encounter [facility] 09-24-2023 Telephone encounter Note The following approved medication requests have been transmitted electronically. Requested Prescriptions Signed Prescriptions Disp Refills sulfamethoxazole-trimethoprim (BACTRIM DS) 800-160 mg per tablet 14 tablet 0 Sig: Take 1 tablet by mouth two times a day for 7 days. Authorizing Provider: KRYSTAL MEZA APRN.CNP [facility] 09-24-2023 Telephone encounter Note Pts daughter called and is notified of providers results and instructions. She voices understanding and states she was never notified about any antibiotic. Please send antibiotic to [facility] in [place] and call and leave a VM on the daughters phone to let her know when it was sent. Suzy Lindo, KEYONNA [facility] 09-24-2023 Telephone encounter Note Left message to return call. [facility] 09-24-2023 Telephone encounter Note Please let her know that her urine culture does show a UTI. I don't see that Shonda sent her in an antibiotic? Please confirm this with her and I will send one in. Krystal Meza APRN.CNP [facility] 08-18-2023 Telephone encounter Note Patient daughter notified. [facility] 08-18-2023 Miscellaneous Notes Patient daughter notified. Urine still with bacteria but no sensitivity performed. I am repeating treatment of bactrim but slightly lowering dose in response to previous kidney function. Repeat urine 10-14 days after completion of treatment. documented in this encounter [facility] 08-18-2023 Telephone encounter Note Urine still with bacteria but no sensitivity performed. I am repeating treatment of bactrim but slightly lowering dose in response to previous kidney function. Repeat urine 10-14 days after completion of treatment. [facility] 08-13-2023 Telephone encounter Note Daughter phones for refill(s): Requested Prescriptions Pending Prescriptions Disp Refills levothyroxine (LEVOXYL) 50 mcg tablet 30 tablet 5 Sig: Take 1 tablet by mouth once daily. Take on empty stomach. For Thyroid Date of last office visit in primary care: 08/13/2023 Date of next office visit in primary care: 11/15/2023 Lara Rodríguez RN. [facility] 08-13-2023 Miscellaneous Notes Daughter phones for refill(s): Requested Prescriptions Pending Prescriptions Disp Refills levothyroxine (LEVOXYL) 50 mcg tablet 30 tablet 5 Sig: Take 1 tablet by mouth once daily. Take on empty stomach. For Thyroid Date of last office visit in primary care: 08/13/2023 Date of next office visit in primary care: 11/15/2023 Lara Rodríguez RN. documented in this encounter [facility] 08-13-2023 Note HNO ID: [id number] Author: SHONDA TYLER APRN.[employer]AIR Service: ? Author Type: Nurse Practitioner Type: [...] Take 1 tablet by mouth once daily. Zjbyrrwmtebjb-Fiegxbsa-Uhyvxk (CENTRUM SILVER) ORAL Tab Take one(1) tablet [...] URINE CULTURE 3. (more content not included)... [facility] 08-13-2023 History of Presen t illness Narrative [...] Take 1 tablet by mouth once daily. Vukmbtxwftgem-Zlgevzns-Gcbstc (CENTRUM SILVER) ORAL Tab Take one(1) tablet [...] Patient agreeable to treatment plan. Shonda Tyler APRN.[employer] CHAIR documented in this encounter [facility] 06-09-2023 Miscellaneous Notes Requested Prescriptions Pending Prescriptions [...] Zoran Steele Pss documented in this encounter [facility] 04-29-2023 Miscellaneous Notes Pts granddaughter Suzy called and is notified of providers results and instructions. She voices understanding and her or her mother will go pick the medication up for the Pt. Suzy Lindo RN Patient is positive for urinary tract infection. Hold your potassium supplement while on the antibiotic. Thank you Shonda Tyler APRN.CNP documented in this encounter [facility] 04-26-2023 Note HNO ID: [id number] Author: SHONDA TYLER APRN.CNP Service: ? Author [...] Take 1 tablet by mouth once daily. Kfprujzcztpdh-Hmfbpqzw-Qsmigt (CENTRUM SILVER) ORAL Tab Take one(1) tablet [...] Never done D (more content not included)... [facility] 04-26-2023 History of Presen t illness Narrative [...] Take 1 tablet by mouth once daily. Wjyojqrwttsqz-Cngcvnds-Xspgjj (CENTRUM SILVER) ORAL Tab Take one(1) tablet [...] - Instructed patient to contact office or bjiqj-qk-cipg after-hours promptly should condition worsen or any new symptoms appear. - Counseling [facility] and after hours crisis line 5. Chronic [...] Shonda Tyler APRN.SABIHA documented in this encounter [facility] 02-04-2023 Miscellaneous Notes Pt noted on [facility] 1st time treatment report. Pt has a non-oncology regimen. No social work follow up indicated. BONIFACIO Rodrigues-S Oncology SW documented in this encounter [facility] 01-25-2023 Note HNO ID: [id number] Author: Stu Schaeffer MD Service: ? Author [...] Take 1 tablet by mouth once daily. Zjdywksmhcvmx-Rdpwbdyf-Aedvfw (CENTRUM SILVER) ORAL Tab Take one(1) tablet [...] which included preparing to see the patient, wnwq-qf-ypck patient care, completing clinical documentation, obtaining and/or reviewing separately obtained history, counseling and educating the patient/family/caregiver, ordering medications, tests, or procedures, communicating with other HCPs (not separately reported), and communicating results to the patient/family/caregiver. Electronically Signed: Stu Schaeffer MD January 25, 2023 1:08 PM [facility] 01-25-2023 History of Presen t illness Narrative [...] Take 1 tablet by mouth once daily. Hsnwfkkdctrki-Fbtwmkpo-Jgcenp (CENTRUM SILVER) ORAL Tab Take one(1) tablet [...] which included preparing to see the patient, erjl-yr-mqjc patient care, completing clinical documentation, obtaining and/or reviewing separately obtained history, counseling and educating the patient/family/caregiver, ordering medications, tests, or procedures, communicating with other HCPs (not separately reported), and communicating results to the patient/family/caregiver. Electronically Signed: Stu Schaeffer MD January 25, 2023 1:08 PM documented in this encounter [facility] 01-07-2023 Miscellaneous Notes Pt scheduled by another PSS LM for a return call. When she calls, please schedule first available SUBSTATION ELECTRICIAN SUPERVISOR re: anemia that works for the patient. Johanna Carlson OK to schedule with first available. Alexandra Michel RN Please review and advise. CONSULT TO HEMATOLOGY Status: Needs Scheduling Requested appt date: Authorizing: Zoran Dumont PA-C in [facility] [place] Referral: [id number] (Authorized) Expires: 01/04/2024 Priority: Routine Diagnosis: Iron deficiency anemia, unspecified iron deficiency anemia type [D50.9] Comments Pt's provider would like pt to see Hematology. Due to anemia, iron deficiency. Zoran Dumont Please advise? documented in this encounter [facility] 01-04-2023 Note HNO ID: [id number] Author: Zoran Dumont PA-C Service: ? Author Type: Physician Landscaping Specialist Type: Progress Notes Filed: 01/05/2023 12:20 PM Note Text: CC: Patient presents with: Follow Up: labs,urine,confusion Immunizations: Flu vaccination HPI Ainsley Sorenson is a 87 year old female who presents today with daughter, Jillian, for 6 wk f/u regarding anemia. This daughter who takes her to all her appts, has to drive in from [place] and states it's a lot every time [...] Blood pressure monitor weight of pt 103# Fubgmmsauoouq-Ebxdvjto-Ornzdk (CENTRUM SILVER) ORAL Tab Take one(1) tablet [...] Due to progressi (more content not included)... [facility] 01-04-2023 History of Presen t illness Narrative CC: Patient presents with: Follow Up: labs,urine,confusion Immunizations: Flu vaccination [facility] Ainsley Sorenson is a 87 year old female who presents today with daughter, Jillian, for 6 wk f/u regarding anemia. This daughter who takes her to all her appts, has to drive in from [place] and states it's a lot every time [...] colonoscopy, or additional work-up regarding this. From [facility] prior visit on 11/13/22: Patient was [...] Blood pressure monitor weight of pt 103# Alfksdcltwhjn-Egrninvf-Htrkre (CENTRUM SILVER) ORAL Tab Take one(1) tablet [...] Zoran Dumont PA-C documented in this encounter [facility] 11-17-2022 Miscellaneous Notes Rx sent. Patient's daughter [...] those results. Please phone Jillian with reply: [phone] documented in this encounter [facility] 11-13-2022 History of Presen t illness Narrative [...] Take 1 tablet by mouth once daily. Rdelzphazyzcc-Penvevyq-Mlntje (CENTRUM SILVER) ORAL Tab Take one(1) tablet [...] Zoran Dumont PA-C documented in this encounter [facility] 11-10-2022 Miscellaneous Notes Zoran, looks like she is seeing you 11/13. Called pts daughter to review the procedure for this. Also called [facility] outpt infusion to let them know also. Order faxed and they will call pt to arrange for both the lab draw and the transfusion. Fyi to SUBSTATION ELECTRICIAN SUPERVISOR for 11/13/22 appt.(Nothing else is needed at [...] consult at that appointment. Jillian lives in [place] and works so will have to juggle that in order to get patient to an appointment. Please call Jillian at [phone] to schedule once orders are placed. Saumya [...] in the past. documented in this encounter [facility] 08-21-2022 History of Presen t illness Narrative CC: Patient presents with: Recheck: Follow up, review labs and BP HPI Ainsley Sorenson is a 86 year old female who presents today for routine follow up. Is accompanied by her daughter. Patient lives alone but other daughter lives across the street and comes over daily to check on mother, help with anything needed, and pastry cook apprentice. Last appointment with PCP zoloft decreased because [...] Take 1 tablet by mouth once daily. Nqovejmnbmmnc-Yubfzbsa-Uvvgyo (CENTRUM SILVER) ORAL Tab Take one(1) tablet [...] - Instructed patient to contact office or figgk-do-aucm after-hours promptly should condition worsen or any new symptoms appear. - [facility]ing [facility] and after hours crisis line 3. Chronic [...] Shonda Tyler APRN.SABIHA documented in this encounter [facility] 06-05-2022 Miscellaneous Notes Addended by: SHONDA TYLER [...] Iliana Mata LPN documented in this encounter [facility] 05-29-2022 History of Presen t illness Narrative [...] (ASPIRIN, ENTERIC COATED) 81 mg EC tablet Fellflwhghvxu-Kmooohiy-Ydjcql (CENTRUM SILVER) ORAL Tab Review of Systems [...] Ming Mcknight MD documented in this encounter [facility] 05-04-2022 Miscellaneous Notes Left a detailed message [...] done until Wednesday. documented in this encounter [facility] 02-18-2022 Miscellaneous Notes Left detailed message on [...] over results, notes below from Shonda Tyler SUBSTATION ELECTRICIAN SUPERVISOR. Daughter said my mother is under 100 hundred pounds and the prep for a colonoscopy would kill her, she can not do a colonoscopy. Daughter would like SUBSTATION ELECTRICIAN SUPERVISOR to call her about this please. Noted Regards, Ming Mcknight MD Left message for return call. Please let patient/daughter know stool was positive for hidden blood. I am consulting her to general surgery for further evaluation. Thank you Shonda Tyler APRN.CNP Suzygabby Sorenson calling for results of stool testing and next step. Please advise. Iliana Mata LPN documented in this encounter [facility] 02-09-2022 Miscellaneous Notes Patient has been identified [...] to pharmacy. No need to notify patient. [facility] documented in this encounter [facility] 01-30-2022 History of Presen t illness Narrative [...] Mindy Mancia MD documented in this encounter [facility] 01-30-2022 Miscellaneous Notes Noted. Thank you for [...] Angelic Franklin RN documented in this encounter [facility] 01-28-2022 Miscellaneous Notes Daughter notified. Order sent. TSH needs rechecked in 4-6 weeks. Thank you Shonda Tyler APRN.CNP Patient daughter states no thyroid medication has been taken, notified that 25mcg will be sent to [facility]. Levothyroxine 75mcg once daily is still [...] Shonda Tyler APRN.CNP documented in this encounter [facility] 01-26-2022 Miscellaneous Notes Noted, will re-evaluate with [...] Shonda Tyler APRN.SABIHA documented in this encounter [facility] 01-23-2022 History of Presen t illness Narrative [...] Take 1 tablet by mouth once daily. Dvzysnacgqrmj-Prhugstt-Tmantx (CENTRUM SILVER) ORAL Tab Take one(1) tablet [...] - Instructed patient to contact office or mhmoe-mn-jdtw after-hours promptly should condition worsen or any new symptoms appear. - [facility] and after hours crisis line 4. Chronic [...] Shonda Tyler APRN.CNP documented in this encounter [facility] 01-12-2022 Miscellaneous Notes Refilled medication Daughter calling and the last prescription for medication below had to be transferred to [facility]. Daughter spoke with them and they are [...] Iliana Mata LPN documented in this encounter [facility] 01-05-2022 Miscellaneous Notes Patient's Daughter calls and notified that iron prescription was sent to [facility]. Voices understanding. Johanna Gamez RN I sent [...] recommended? Jillian asking for call back at [phone]. Please review and advise, Saumya Maldonado RN documented in this encounter [facility] 12-05-2021 Miscellaneous Notes Spoke with daughter, appointment scheduled ----- Message from Ming Mcknight MD sent at 12/05/2021 1:23 PM EDT ----- Some abnormalities in labs, we can have her in for an apt to discuss or else we can do it at the next apt Nothing very very concerning; Regards, Ming Mcknight MD documented in this encounter [facility] 11-28-2021 History of Presen t illness Narrative Reason for Visit Patient presents with: F/U 6 months Ainsley Sorenson is a 86 year old female who presents here today for Above Complaints. Health Maintenance SHINGRIX VACCINE(1 of 2) ADVANCE DIRECTIVE DISCUSSION COVID-19 VACCINE(4 - Booster for Pfizer series) HPI SHISHMAREF IRA but does not want to have hearing [...] Anemia: In the recent hospital visit at [place] for UTI she had mild anemia and [...] (ASPIRIN, ENTERIC COATED) 81 mg EC tablet Diyepyxfkehaz-Dzofelzk-Caxotu (CENTRUM SILVER) ORAL Tab Oxyquinoline-Na Lauryl Sulfate [...] Ming Mcknight MD documented in this encounter [facility] 11-26-2021 History of Presen t illness Narrative Images from the original note were not included. This note was created using [email or web address]. Subjective Ainsley Sorenson is a 86 year [...] 1 tablet by mouth once daily. 0 Gneyfkijkibwi-Milmumbz-Gtjwod (CENTRUM SILVER) ORAL Tab Take one(1) tablet [...] Neela Oneill PA-C documented in this encounter [facility] 11-14-2021 Evaluation note Diagnosis Hypertensive kidney disease with stage 3a chronic kidney disease (HCC) documented in this encounter [facility]08-01-2022 Miscellaneous Notes* Telephone Encounter - Leah Salazar [...] patient. Zoran Steele Pss [facility] History of Present illness Narrative* Mindy Mancia [...] no apparent distress Pelvic: Bartholin's, urethra and [place]'s glands were normal. The ring with support [...] prn Mindy Mancia MD [facility] Miscellaneous Notes* Telephone Encounter - Rosario Hebert LPN - 07/05/2021 10:58 AM EDT Wednesday refill is fine. * Telephone Encounter - Rosario Hebert LPN - 07/05/2021 10:56 AM EDT Patient has been identified by name and date of : Yes [employer] phones for refill(s): Pending Prescriptions Disp Refills ALLOPURINOL 100 MG TABLET 90 tablet 3 Sig: Take 1 tablet by mouth once daily. For gout. GREGG: No Date of last office visit in primary care: 06/06/21 Please advise. Thank you. Rosario Hebret LPN [facility] History of Present illness Narrative* Melissa Zepeda, [...] 16, 2021 1:23 PM documented in [facility] History of Past illness Narrative* Problem Noted Date Resolved Date Depression 03/19/2015 10/12/2019 Internal hemorrhoids without mention of complica tion 04/07/2012 03/01/2014 Uterine prolapse without mention of vaginal wall prolapse 07/31/2009 07/31/2009 Other symptoms involving cardiovascular system 12/25/2015 documented as of this encounter (statuses as of 07/07/2021) [facility] of [facility] illness Narrative* Problem Noted Date Resolved Date Depression 03/19/2015 10/12/2019 Internal hemorrhoids without mention of complica tion 04/07/2012 03/01/2014 Uterine prolapse without mention of vaginal wall prolapse 07/31/2009 07/31/2009 Other symptoms involving cardiovascular system 12/25/2015 documented as of this encounter (statuses as of 07/25/2021) [facility] Narrative* Problem Noted Date Resolved Date Depression 03/19/2015 10/12/2019 Internal hemorrhoids without mention of complica tion 04/07/2012 03/01/2014 Uterine prolapse without mention of vaginal wall prolapse 07/31/2009 07/31/2009 Other symptoms involving cardiovascular system 12/25/2015 documented as of this encounter (statuses as of 10/20/2021) [facility] Narrative* Problem Noted Date Resolved Date Depression 03/19/2015 10/12/2019 Internal hemorrhoids without mention of complica tion 04/07/2012 03/01/2014 Uterine prolapse without mention of vaginal wall prolapse 07/31/2009 07/31/2009 Other symptoms involving cardiovascular system 12/25/2015 documented as of this encounter (statuses as of 11/14/2021) [facility] Narrative* Problem Noted Date Resolved Date Depression 03/19/2015 10/12/2019 Internal hemorrhoids without mention of complica tion 04/07/2012 03/01/2014 Uterine prolapse without mention of vaginal wall prolapse 07/31/2009 07/31/2009 Other symptoms involving cardiovascular system 12/25/2015 documented as of this encounter (statuses as of 11/26/2021) [facility] Narrative* Problem Noted Date Resolved Date Depression 03/19/2015 10/12/2019 Internal hemorrhoids without mention of complica tion 04/07/2012 03/01/2014 Uterine prolapse without mention of vaginal wall prolapse 07/31/2009 07/31/2009 Other symptoms involving cardiovascular system 12/25/2015 documented as of this encounter (statuses as of 11/28/2021) [facility] Narrative* Problem Noted Date Resolved Date Depression 03/19/2015 10/12/2019 Internal hemorrhoids without mention of complica tion 04/07/2012 03/01/2014 Uterine prolapse without mention of vaginal wall prolapse 07/31/2009 07/31/2009 Other symptoms involving cardiovascular system 12/25/2015 documented as of this encounter (statuses as of 12/05/2021) [facility] Narrative* Problem Noted Date Resolved Date Depression 03/19/2015 10/12/2019 Internal hemorrhoids without mention of complica tion 04/07/2012 03/01/2014 Uterine prolapse without mention of vaginal wall prolapse 07/31/2009 07/31/2009 Other symptoms involving cardiovascular system 12/25/2015 documented as of this encounter (statuses as of 01/05/2022) [facility] Narrative* Problem Noted Date Resolved Date Depression 03/19/2015 10/12/2019 Internal hemorrhoids without mention of complica tion 04/07/2012 03/01/2014 Uterine prolapse without mention of vaginal wall prolapse 07/31/2009 07/31/2009 Other symptoms involving cardiovascular system 12/25/2015 documented as of this encounter (statuses as of 01/13/2022) [facility] Narrative* Problem Noted Date Resolved Date Depression 03/19/2015 10/12/2019 Internal hemorrhoids without mention of complica tion 04/07/2012 03/01/2014 Uterine prolapse without mention of vaginal wall prolapse 07/31/2009 07/31/2009 Other symptoms involving cardiovascular system 12/25/2015 documented as of this encounter (statuses as of 01/23/2022) [facility] Narrative* Problem Noted Date Resolved Date Depression 03/19/2015 10/12/2019 Internal hemorrhoids without mention of complica tion 04/07/2012 03/01/2014 Uterine prolapse without mention of vaginal wall prolapse 07/31/2009 07/31/2009 Other symptoms involving cardiovascular system 12/25/2015 documented as of this encounter (statuses as of 01/26/2022) [facility] Narrative* Problem Noted Date Resolved Date Depression 03/19/2015 10/12/2019 Internal hemorrhoids without mention of complica tion 04/07/2012 03/01/2014 Uterine prolapse without mention of vaginal wall prolapse 07/31/2009 07/31/2009 Other symptoms involving cardiovascular system 12/25/2015 documented as of this encounter (statuses as of 01/28/2022) [facility] Narrative* Problem Noted Date Resolved Date Depression 03/19/2015 10/12/2019 Internal hemorrhoids without mention of complica tion 04/07/2012 03/01/2014 Uterine prolapse without mention of vaginal wall prolapse 07/31/2009 07/31/2009 Other symptoms involving cardiovascular system 12/25/2015 documented as of this encounter (statuses as of 01/30/2022) [facility] Narrative* Problem Noted Date Resolved Date Depression 03/19/2015 10/12/2019 Internal hemorrhoids without mention of complica tion 04/07/2012 03/01/2014 Uterine prolapse without mention of vaginal wall prolapse 07/31/2009 07/31/2009 Other symptoms involving cardiovascular system 12/25/2015 documented as of this encounter (statuses as of 01/30/2022) [facility] Narrative* Problem Noted Date Resolved Date Depression 03/19/2015 10/12/2019 Internal hemorrhoids without mention of complica tion 04/07/2012 03/01/2014 Uterine prolapse without mention of vaginal wall prolapse 07/31/2009 07/31/2009 Other symptoms involving cardiovascular system 12/25/2015 documented as of this encounter (statuses as of 02/11/2022) [facility] Narrative* Problem Noted Date Resolved Date Depression 03/19/2015 10/12/2019 Internal hemorrhoids without mention of complica tion 04/07/2012 03/01/2014 Uterine prolapse without mention of vaginal wall prolapse 07/31/2009 07/31/2009 Other symptoms involving cardiovascular system 12/25/2015 documented as of this encounter (statuses as of 02/18/2022) [facility] Narrative* Problem Noted Date Resolved Date Depression 03/19/2015 10/12/2019 Internal hemorrhoids without mention of complica tion 04/07/2012 03/01/2014 Uterine prolapse without mention of vaginal wall prolapse 07/31/2009 07/31/2009 Other symptoms involving cardiovascular system 12/25/2015 documented as of this encounter (statuses as of 05/05/2022) [facility] Narrative* Problem Noted Date Resolved Date Depression 03/19/2015 10/12/2019 Internal hemorrhoids without mention of complica tion 04/07/2012 03/01/2014 Uterine prolapse without mention of vaginal wall prolapse 07/31/2009 07/31/2009 Other symptoms involving cardiovascular system 12/25/2015 documented as of this encounter (statuses as of 05/30/2022) [facility] Narrative* Problem Noted Date Resolved Date Depression 03/19/2015 10/12/2019 Internal hemorrhoids without mention of complica tion 04/07/2012 03/01/2014 Uterine prolapse without mention of vaginal wall prolapse 07/31/2009 07/31/2009 Other symptoms involving cardiovascular system 12/25/2015 documented as of this encounter (statuses as of 06/05/2022) [facility] Narrative* Problem Noted Date Resolved Date Depression 03/19/2015 10/12/2019 Internal hemorrhoids without mention of complica tion 04/07/2012 03/01/2014 Uterine prolapse without mention of vaginal wall prolapse 07/31/2009 07/31/2009 Other symptoms involving cardiovascular system 12/25/2015 documented as of this encounter (statuses as of 08/21/2022) [facility]* Problem Noted Date Diagnosed Date Resolved Date Depression 03/19/2015 10/12/2019 Internal hemorrhoids without mention of complication 04/07/2012 03/01/2014 Uterine prolapse without men tion of vaginal wall prolapse 07/31/2009 07/31/2009 Other symptoms involving car diovascular system 12/25/2015 documented as of this encounter (statuses as of 11/13/2022) [facility] Narrative* Problem Noted Date Diagnosed Date Resolved Date Depression 03/19/2015 10/12/2019 Internal hemorrhoids without mention of complication 04/07/2012 03/01/2014 Uterine prolapse without men tion of vaginal wall prolapse 07/31/2009 07/31/2009 Other symptoms involving car diovascular system 12/25/2015 documented as of this encounter (statuses as of 11/14/2022) [facility] Narrative* Problem Noted Date Diagnosed Date Resolved Date Depression 03/19/2015 10/12/2019 Internal hemorrhoids without mention of complication 04/07/2012 03/01/2014 Uterine prolapse without men tion of vaginal wall prolapse 07/31/2009 07/31/2009 Other symptoms involving car diovascular system 12/25/2015 documented as of this encounter (statuses as of 11/18/2022) [facility] Narrative* Problem Noted Date Diagnosed Date Resolved Date Depression 03/19/2015 10/12/2019 Internal hemorrhoids without mention of complication 04/07/2012 03/01/2014 Uterine prolapse without men tion of vaginal wall prolapse 07/31/2009 07/31/2009 Other symptoms involving car diovascular system 12/25/2015 documented as of this encounter (statuses as of 01/05/2023) [facility] Narrative* Problem Noted Date Diagnosed Date Resolved Date Depression 03/19/2015 10/12/2019 Internal hemorrhoids without mention of complication 04/07/2012 03/01/2014 Uterine prolapse without men tion of vaginal wall prolapse 07/31/2009 07/31/2009 Other symptoms involving car diovascular system 12/25/2015 documented as of this encounter (statuses as of 01/07/2023) [facility] Narrative* Problem Noted Date Diagnosed Date Resolved Date Depression 03/19/2015 10/12/2019 Internal hemorrhoids without mention of complication 04/07/2012 03/01/2014 Uterine prolapse without men tion of vaginal wall prolapse 07/31/2009 07/31/2009 Other symptoms involving car diovascular system 12/25/2015 documented as of this encounter (statuses as of 01/26/2023) [facility] Narrative* Problem Noted Date Diagnosed Date Resolved Date Depression 03/19/2015 10/12/2019 Internal hemorrhoids without mention of complication 04/07/2012 03/01/2014 Uterine prolapse without men tion of vaginal wall prolapse 07/31/2009 07/31/2009 Other symptoms involving car diovascular system 12/25/2015 documented as of this encounter (statuses as of 02/04/2023) [facility] Narrative* Problem Noted Date Diagnosed Date Resolved Date Depression 03/19/2015 10/12/2019 Internal hemorrhoids without mention of complication 04/07/2012 03/01/2014 Uterine prolapse without men tion of vaginal wall prolapse 07/31/2009 07/31/2009 Other symptoms involving car diovascular system 12/25/2015 documented as of this encounter (statuses as of 02/05/2023) [facility] Narrative* Problem Noted Date Diagnosed Date Resolved Date Depression 03/19/2015 10/12/2019 Internal hemorrhoids without mention of complication 04/07/2012 03/01/2014 Uterine prolapse without men tion of vaginal wall prolapse 07/31/2009 07/31/2009 Other symptoms involving car diovascular system 12/25/2015 documented as of this encounter (statuses as of 02/26/2023) [facility] Narrative* Problem Noted Date Diagnosed Date Resolved Date Depression 03/19/2015 10/12/2019 Internal hemorrhoids without mention of complication 04/07/2012 03/01/2014 Uterine prolapse without men tion of vaginal wall prolapse 07/31/2009 07/31/2009 Other symptoms involving car diovascular system 12/25/2015 documented as of this encounter (statuses as of 04/27/2023) [facility] Narrative* Problem Noted Date Diagnosed Date Resolved Date Depression 03/19/2015 10/12/2019 Internal hemorrhoids without mention of complication 04/07/2012 03/01/2014 Uterine prolapse without men tion of vaginal wall prolapse 07/31/2009 07/31/2009 Other symptoms involving car diovascular system 12/25/2015 documented as of this encounter (statuses as of 04/29/2023) [facility] [facility] History of Past illness Narrative* Problem Noted Date Diagnosed Date Resolved Date Depression 03/19/2015 10/12/2019 Internal hemorrhoids without mention of complication 04/07/2012 03/01/2014 Uterine prolapse without men tion of vaginal wall prolapse 07/31/2009 07/31/2009 Other symptoms involving car diovascular system 12/25/2015 documented as of this encounter (statuses as of 06/09/2023) [facility] Diagnosis Gout with manifestations Gout with other specified manifestations [facility] Diagnosis Uterovaginal prolapse, complete- Primary Encounter for pessary maintenance Fitting and adjustment of other device documented [facility] this [facility] Diagnosis Hypokalemia Hypopotassemia [facility] Diagnosis Skin infection- Primary Unspecified local infection of skin and subcutaneous tissue [facility] Diagnosis Vitamin B12 deficiency- Primary Other B-complex deficiencies Gout with manifestations Gout with other specified manifestations Vitamin D deficiency Unspecified vitamin D deficiency Hypothyroidism, unspecified type Essential hypertension, benign Encounter for screening for diabetes mellitus Screening for diabetes mellitus Elevated glucose Other abnormal glucose [facility] this [facility] Diagnosis Anemia, unspecified type- Primary Prediabetes Other abnormal glucose Major depressive disorder with single episode, in full remission (HCC) Chronic anxiety Anxiety state, unspecified 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) [facility] Diagnosis Anemia, unspecified type- Primary [facility]* Diagnosis Hypothyroidism, unspecified type- Primary Medication management Encounter for long-term (current) use of other medications documented [facility] this [facility] Diagnosis Pessary maintenance- Primary Fitting and adjustment of other device Incomplete uterovaginal prolapse Uterovaginal prolapse, incomplete documented [facility] this [facility]* Diagnosis 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) documented in this encounter [facility] note* Diagnosis Anemia, unspecified type- Primary [facility] Diagnosis Hypothyroidism, unspecified type- Primary Hypokalemia Hypopotassemia Essential hypertension, benign Prediabetes Other abnormal glucose [facility] Diagnosis Anemia, unspecified type- Primary Major depressive disorder with single episode, in full remission (HCC) Chronic anxiety Anxiety state, unspecified Hypothyroidism, unspecified type Essential hypertension, benign documented [facility] this [facility] Diagnosis Essential hypertension, benign documented [facility] this [facility] Diagnosis Essential hypertension, benign- Primary Major depressive disorder with single episode, in full remission (HCC) Chronic anxiety Anxiety state, unspecified Anemia, unspecified type Hypothyroidism, unspecified type [facility] Diagnosis Microcytic anemia- Primary Iron deficiency anemia, unspecified History of recent blood transfusion Acute confusion Delirium due to conditions classified elsewhere documented [facility] this [facility] Diagnosis Iron deficiency anemia due to chronic blood loss- Primary Iron deficiency anemia secondary to blood loss (chronic) documented in this [facility]* Diagnosis Urinary tract infection without hematuria, site unspecified- Primary [facility] this [facility] Diagnosis Iron deficiency anemia, unspecified iron deficiency anemia type- Primary 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) Gout with manifestations Gout with other specified manifestations Need for influenza vaccination Need for prophylactic vaccination and inoculation against influenza documented [facility] this [facility] Diagnosis Iron deficiency anemia, unspecified iron deficiency anemia type- Primary documented in this encounter [facility]* Diagnosis Iron deficiency anemia, unspecified iron deficiency anemia type documented in this encounter [facility]* Diagnosis Iron deficiency anemia, unspecified iron deficiency anemia type- Primary documented in this [facility]* Diagnosis Other iron deficiency anemia- Primary Iron deficiency anemia, unspecified iron deficiency anemia type documented in this encounter [facility]* Diagnosis 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)- Primary Memory change Memory loss Hypothyroidism, unspecified type Major depressive disorder with single episode, in full remission (HCC) Chronic anxiety Anxiety state, unspecified Stage 3a chronic kidney disease (HCC) Diarrhea, unspecified type documented [facility] this [facility]* Diagnosis Major depressive disorder with single episode, in full remission (HCC) Chronic anxiety Anxiety state, unspecified documented [facility] this [facility]* Diagnosis Recent urinary tract infection- Primary Leukocytes in urine Other cells and casts in urine 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) Diarrhea, unspecified type documented [facility] this encounter [facility]* Diagnosis Recent urinary tract infection- Primary Recurrent UTI Urinary tract infection, site not specified [facility] Diagnosis Major depressive disorder with single episode, in full remission (HCC) Chronic anxiety Anxiety state, unspecified documented [facility] this [facility]* Diagnosis Unsteady gait- Primary Abnormality of gait Tremor of both hands 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) Hypothyroidism, unspecified type Hypertensive kidney disease with stage 3a chronic kidney disease (HCC) Stage 3a chronic kidney disease (HCC) documented [facility] this encounter [facility]* Diagnosis Injury of right forearm, initial encounter documented in this encounter [facility] for referral (narrative)* Diagnostic Procedure Only (Urgent) - Closed Specialty Diagnoses / Procedures Referred By Contac t Referred To Contact XR IMAGING Diagnoses Injury of right forearm, initial encounter Procedures XR FOREARM GENERAL 2V AP/LAT RIGHT RADEX FOREARM 2 VIEWS Marianna Valerio APRN.CNP [address] [place] [address] Xr Imaging [place] [address] Referral ID Status Reason Start Date Expiration Date V isits Requested Visits Authorized [id number] Closed Auto-Generate d Referral 05/16/2021 06/15/2022 1 1 [facility] for visit Narrative* Diagnostic Procedure Only (Urgent) - Closed Specialty Diagnoses / Procedures Referred By Contac t Referred To Contact XR IMAGING Diagnoses Injury of right forearm, initial encounter Procedures XR FOREARM GENERAL 2V AP/LAT RIGHT RADEX FOREARM 2 VIEWS Marianna Valerio APRN.CNP [address] [place] [address] [facility] [id number] Referral ID Status Reason Start Date Expiration Date V isits Requested Visits Authorized [id number] Closed Auto-Generate d Referral 05/16/2021 06/15/2022 1 1 [facility] Advance Directives Documents on File Type Date Recorded Patient Surgical Nurse Practitioner Expl anation Advance Directive(s) 07/31/2021 9:05 AM Documents on File Type Date Recorded Patient Surgical Nurse Practitioner Expl anation Advance Directive(s) 07/31/2021 9:05 AM Reason for Referral Specialty Diagnoses / Procedures Referred By Contac t Referred To Contact Gastroenterology Diagnoses Microcytic anemia History of recent blood transfusion Procedures CONSULT TO GASTROENTEROLOGY OFFICE/OUTPATIENT [facility] 60-74 MINUTES Zoran Dumont PA-C [address] [place] [address] Referral ID Status Reason Start Date Expiration Date Visits Requested Visits Authorized [id number] Authorized PCP Requested Referral 11/13/2022 11/13/2023 1 1 Specialty Diagnoses / Procedures Referred By Contac t Referred To Contact Hematology Diagnoses Iron deficiency anemia, unspecified iron deficiency anemia type Procedures CONSULT TO HEMATOLOGY OFFICE/OUTPATIENT [facility] 60-74 MINUTES Zoran Dumont PA-C [address] [place] [address] Referral ID Status Reason Start Date Expiration Date Visits Requested Visits Authorized [id number] Authorized PCP Requested Referral 3 01/04/2024 1 1 Specialty Diagnoses / Procedures Referred By Contac t Referred To Contact Gerontology Diagnoses 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) Unsteady gait Procedures CONSULT TO GERIATRICS OFFICE/OUTPATIENT [facility] 60 MINUTES Shonda Tyler APRN.[facility] [address] [place] [address] Referral ID Status Reason Start Date Expiration Date Visits Requested Visits Authorized [id number] Authorized PCP Requested Referral 12/10/2023 12/09/2024 1 [...] or prosecute any alcohol or drug abuse patient.[facility] the event this information is protected by the Federal Confidentiality of Alcohol and Drug Abuse Patient Records regulations: The Federal rules restrict any use of the information to criminally investigate or prosecute any alcohol or drug abuse patient.[facility] the event this information is protected by the Federal Confidentiality of Alcohol and Drug Abuse Patient Records regulations: The Federal rules restrict any use of the information to criminally investigate or prosecute any alcohol or drug abuse patient.[facility] Center[facility] the event this information is protected by the Federal Confidentiality of Alcohol and Drug Abuse Patient Records regulations: The Federal rules restrict any use of the information to criminally investigate or prosecute any alcohol or drug abuse patient.[facility] Center[facility] the event this information is protected by the Federal Confidentiality of Alcohol and Drug Abuse Patient Records regulations: The Federal rules restrict any use of the information to criminally investigate or prosecute any alcohol or drug abuse patient.[facility] Center[facility] the event this information is protected by the Federal Confidentiality of Alcohol and Drug Abuse Patient Records regulations: The Federal rules restrict any use of the information to criminally investigate or prosecute any alcohol or drug abuse patient.[facility] Center[facility] the event this information is protected by the Federal Confidentiality of Alcohol and Drug Abuse Patient Records regulations: The Federal rules restrict any use of the information to criminally investigate or prosecute any alcohol or drug abuse patient.[facility] Center[facility] the event this information is protected by the Federal Confidentiality of Alcohol and Drug Abuse Patient Records regulations: The Federal rules restrict any use of the information to criminally investigate or prosecute any alcohol or drug abuse patient.[facility] CenterIn the event this information is protected by the Federal Confidentiality of Alcohol and Drug Abuse Patient Records regulations: The Federal rules restrict any use of the information to criminally investigate or prosecute any alcohol or drug abuse patient.[facility] Center[facility] the event this information is protected by the Federal Confidentiality of Alcohol and Drug Abuse Patient Records regulations: The Federal rules restrict any use of the information to criminally investigate or prosecute any alcohol or drug abuse patient.[facility] CenterIn the event this information is protected by the Federal Confidentiality of Alcohol and Drug Abuse Patient Records regulations: The Federal rules restrict any use of the information to criminally investigate or prosecute any alcohol or drug abuse patient.[facility] CenterIn the event this information is protected by the Federal Confidentiality of Alcohol and Drug Abuse Patient Records regulations: The Federal rules restrict any use of the information to criminally investigate or prosecute any alcohol or drug abuse patient.[facility] CenterIn the event this information is protected by the Federal Confidentiality of Alcohol and Drug Abuse Patient Records regulations: The Federal rules restrict any use of the information to criminally investigate or prosecute any alcohol or drug abuse patient.[facility] CenterIn the event this information is protected by the Federal Confidentiality of Alcohol and Drug Abuse Patient Records regulations: The Federal rules restrict any use of the information to criminally investigate or prosecute any alcohol or drug abuse patient.[facility] CenterIn the event this information is protected by the Federal Confidentiality of Alcohol and Drug Abuse Patient Records regulations: The Federal rules restrict any use of the information to criminally investigate or prosecute any alcohol or drug abuse patient.[facility] CenterIn the event this information is protected by the Federal Confidentiality of Alcohol and Drug Abuse Patient Records regulations: The Federal rules restrict any use of the information to criminally investigate or prosecute any alcohol or drug abuse patient.[facility] CenterIn the event this information is protected by the Federal Confidentiality of Alcohol and Drug Abuse Patient Records regulations: The Federal rules restrict any use of the information to criminally investigate or prosecute any alcohol or drug abuse patient.[facility] CenterIn the event this information is protected by the Federal Confidentiality of Alcohol and Drug Abuse Patient Records regulations: The Federal rules restrict any use of the information to criminally investigate or prosecute any alcohol or drug abuse patient.[facility] CenterIn the event this information is protected by the Federal Confidentiality of Alcohol and Drug Abuse Patient Records regulations: The Federal rules restrict any use of the information to criminally investigate or prosecute any alcohol or drug abuse patient.[facility] CenterIn the event this information is protected by the Federal Confidentiality of Alcohol and Drug Abuse Patient Records regulations: The Federal rules restrict any use of the information to criminally investigate or prosecute any alcohol or drug abuse patient.[facility] CenterIn the event this information is protected by the Federal Confidentiality of Alcohol and Drug Abuse Patient Records regulations: The Federal rules restrict any use of the information to criminally investigate or prosecute any alcohol or drug abuse patient.[facility] CenterIn the event this information is protected by the Federal Confidentiality of Alcohol and Drug Abuse Patient Records regulations: The Federal rules restrict any use of the information to criminally investigate or prosecute any alcohol or drug abuse patient.[facility] CenterIn the event this information is protected by the Federal Confidentiality of Alcohol and Drug Abuse Patient Records regulations: The Federal rules restrict any use of the information to criminally investigate or prosecute any alcohol or drug abuse patient.[facility] CenterIn the event this information is protected by the Federal Confidentiality of Alcohol and Drug Abuse Patient Records regulations: The Federal rules restrict any use of the information to criminally investigate or prosecute any alcohol or drug abuse patient.[facility] CenterIn the event this information is protected by the Federal Confidentiality of Alcohol and Drug Abuse Patient Records regulations: The Federal rules restrict any use of the information to criminally investigate or prosecute any alcohol or drug abuse patient.[facility] CenterIn the event this information is protected by the Federal Confidentiality of Alcohol and Drug Abuse Patient Records regulations: The Federal rules restrict any use of the information to criminally investigate or prosecute any alcohol or drug abuse patient.[facility] CenterIn the event this information is protected by the Federal Confidentiality of Alcohol and Drug Abuse Patient Records regulations: The Federal rules restrict any use of the information to criminally investigate or prosecute any alcohol or drug abuse patient.[facility] CenterIn the event this information is protected by the Federal Confidentiality of Alcohol and Drug Abuse Patient Records regulations: The Federal rules restrict any use of the information to criminally investigate or prosecute any alcohol or drug abuse patient.[facility] CenterIn the event this information is protected by the Federal Confidentiality of Alcohol and Drug Abuse Patient Records regulations: The Federal rules restrict any use of the information to criminally investigate or prosecute any alcohol or drug abuse patient.[facility] CenterIn the event this information is protected by the Federal Confidentiality of Alcohol and Drug Abuse Patient Records regulations: The Federal rules restrict any use of the information to criminally investigate or prosecute any alcohol or drug abuse patient.[facility] CenterIn the event this information is protected by the Federal Confidentiality of Alcohol and Drug Abuse Patient Records regulations: The Federal rules restrict any use of the information to criminally investigate or prosecute any alcohol or drug abuse patient.[facility] CenterIn the event this information is protected by the Federal Confidentiality of Alcohol and Drug Abuse Patient Records regulations: The Federal rules restrict any use of the information to criminally investigate or prosecute any alcohol or drug abuse patient.[facility] CenterIn the event this information is protected by the Federal Confidentiality of Alcohol and Drug Abuse Patient Records regulations: The Federal rules restrict any use of the information to criminally investigate or prosecute any alcohol or drug abuse patient.[facility] CenterIn the event this information is protected by the Federal Confidentiality of Alcohol and Drug Abuse Patient Records regulations: The Federal rules restrict any use of the information to criminally investigate or prosecute any alcohol or drug abuse patient.[facility] CenterIn the event this information is protected by the Federal Confidentiality of Alcohol and Drug Abuse Patient Records regulations: The Federal rules restrict any use of the information to criminally investigate or prosecute any alcohol or drug abuse patient.[facility] CenterIn the event this information is protected by the Federal Confidentiality of Alcohol and Drug Abuse Patient Records regulations: The Federal rules restrict any use of the information to criminally investigate or prosecute any alcohol or drug abuse patient.[facility] CenterIn the event this information is protected by the Federal Confidentiality of Alcohol and Drug Abuse Patient Records regulations: The Federal rules restrict any use of the information to criminally investigate or prosecute any alcohol or drug abuse patient.[facility] CenterIn the event this information is protected by the Federal Confidentiality of Alcohol and Drug Abuse Patient Records regulations: The Federal rules restrict any use of the information to criminally investigate or prosecute any alcohol or drug abuse patient.[facility] CenterIn the event this information is protected by the Federal Confidentiality of Alcohol and Drug Abuse Patient Records regulations: The Federal rules restrict any use of the information to criminally investigate or prosecute any alcohol or drug abuse patient.[facility] CenterIn the event this information is protected by the Federal Confidentiality of Alcohol and Drug Abuse Patient Records regulations: The Federal rules restrict any use of the information to criminally investigate or prosecute any alcohol or drug abuse patient.[facility] CenterIn the event this information is protected by the Federal Confidentiality of Alcohol and Drug Abuse Patient Records regulations: The Federal rules restrict any use of the information to criminally investigate or prosecute any alcohol or drug abuse patient.[facility] CenterIn the event this information is protected by the Federal Confidentiality of Alcohol and Drug Abuse Patient Records regulations: The Federal rules restrict any use of the information to criminally investigate or prosecute any alcohol or drug abuse patient.[facility] CenterIn the event this information is protected by the Federal Confidentiality of Alcohol and Drug Abuse Patient Records regulations: The Federal rules restrict any use of the information to criminally investigate or prosecute any alcohol or drug abuse patient.[facility] CenterIn the event this information is protected by the Federal Confidentiality of Alcohol and Drug Abuse Patient Records regulations: The Federal rules restrict any use of the information to criminally investigate or prosecute any alcohol or drug abuse patient.[facility] Reason for Visit (unrecogniz ed section and [...] iron [place] [address] [place] [address] Maur[facility] [address] [place] [address] Referral ID Status Reason Start Date Expiration Date V isits Requested Visits Authorized [id number] Authorized 01/25/2023 04/25/2023 99 99 Reason Comments New Patient Evaluation Specialty Diagnoses / Procedures Referred By Contac t Referred To Contact Hematology Diagnoses Iron deficiency anemia, unspecified iron deficiency anemia type Procedures CONSULT TO HEMATOLOGY OFFICE/OUTPATIENT NEW HIGH MDM 60-74 MINUTES Zoran Dumont PA-C [address] [place] [address] Referral ID Status Reason Start Date Expiration Date V isits Requested Visits Authorized [id number] Closed PCP Requested Referral 01/04/2023 01/04/2024 1 1 Reason Comments 1st Time Treatment (Non-Oncology) Reason Comments Recheck Follow up anemia Reason Comments Recheck 6 week follow up Reason Onset Date Comments Refill Request 08/13/2023 Reason Onset Date Comments Refill Request 10/04/2023 Reason Comments Recheck Not as steady on fee t, walking is more difficult Care Teams (unrecognized sec tion and content) Safety Engineer Relationship Specialty Start Date End Date Ming Mcknight MD [address] [facility] [place] [address] PCP - General Internal Medicine 12/27/20 Safety Engineer Relationship Specialty Start Date End Date Ming Mcknight MD [address] [facility] [place] [address] PCP - General Internal Medicine 12/27/20 Safety Engineer Relationship Specialty Start Date End Date Ming Mcknight MD [address] [facility] [place] [address] PCP - General Internal Medicine 12/27/20 Safety Engineer Relationship Specialty Start Date End Date Ming Mcknight MD [address] [facility] [place] [address] PCP - General Internal Medicine 12/27/20 Safety Engineer Relationship Specialty Start Date End Date Ming Mcknight MD [address] [facility] [place] [address] PCP - General Internal Medicine 12/27/20 Safety Engineer Relationship Specialty Start Date End Date Ming Mcknight MD [address] [facility] [place] [address] PCP - General Internal Medicine 12/27/20 Safety Engineer Relationship Specialty Start Date End Date Ming Mcknight MD [address] [facility] [place] [address] PCP - General Internal Medicine 12/27/20 Safety Engineer Relationship Specialty Start Date End Date Ming Mcknight MD [address] [facility] [place] [address] PCP - General Internal Medicine 12/27/20 Safety Engineer Relationship Specialty Start Date End Date Ming Mcknight MD [address] [place] [address] PCP - General Internal Medicine 12/27/20 Safety Engineer Relationship Specialty Start Date End Date Ming Mcknight MD [address] [facility] [place] [address] PCP - General Internal Medicine 12/27/20 Safety Engineer Relationship Specialty Start Date End Date Ming Mcknight MD [address] [facility] [place] [address] PCP - General Internal Medicine 12/27/20 Safety Engineer Relationship Specialty Start Date End Date Ming Mcknight MD [address] [facility] [place] [address] PCP - General Internal Medicine 12/27/20 Safety Engineer Relationship Specialty Start Date End Date Ming Mcknight MD [address] [facility] [place] [address] PCP - General Internal Medicine 12/27/20 Safety Engineer Relationship Specialty Start Date End Date Ming Mcknight MD [address] [facility] [place] [address] PCP - General Internal Medicine 12/27/20 Safety Engineer Relationship Specialty Start Date End Date Ming Mcknight MD [address] [facility] [place] [address] PCP - General Internal Medicine 12/27/20 Safety Engineer Relationship Specialty Start Date End Date Ming Mcknight MD [address] [facility] [place] [address] PCP - General Internal Medicine 12/27/20 Safety Engineer Relationship Specialty Start Date End Date Ming Mcknight MD [address] [facility] [place] [address] PCP - General Internal Medicine 12/27/20 Safety Engineer Relationship Specialty Start Date End Date Ming Mcknight MD [address] [facility] [place] [address] PCP - General Internal Medicine 12/27/20 Safety Engineer Relationship Specialty Start Date End Date Ming Mcknight MD [address] [facility] [place] [address] PCP - General Internal Medicine 12/27/20 Safety Engineer Relationship Specialty Start Date End Date Ming Mcknight MD [address] [facility] [place] [address] PCP - General Internal Medicine 12/27/20 Safety Engineer Relationship Specialty Start Date End Date Ming Mcknight MD [address] [facility] [place] [address] PCP - General Internal Medicine 12/27/20 Safety Engineer Relationship Specialty Start Date End Date Ming Mcknight MD [address] [facility] [place] [address] PCP - General Internal Medicine 12/27/20 Safety Engineer Relationship Specialty Start Date End Date Ming Mcknight MD [address] [facility] [place] [address] PCP - General Internal Medicine 12/27/20 Stu Schaeffer MD [address] [place] [address] Hematology/Oncology 02/24/23 Safety Engineer Relationship Specialty Start Date End Date Ming Mcknight MD [address] [place] [address] PCP - General Internal Medicine 12/27/20 Stu Schaeffer MD [address] [place] [address] Hematology/Oncology 02/24/23 Safety Engineer Relationship Specialty Start Date End Date Ming Mcknight MD [address] [place] [address] PCP - General Internal Medicine 12/27/20 Stu Schaeffer MD [address] [place] [address] Hematology/Oncology 02/24/23 Safety Engineer Relationship Specialty Start Date End Date Ming Mcknight MD [address] [place] [address] PCP - General Internal Medicine 12/27/20 Stu Schaeffer MD [address] [place] [address] Hematology/Oncology 02/24/23 Safety Engineer Relationship Specialty Start Date End Date Ming Mcknight MD [address] [place] [address] PCP - General Internal Medicine 12/27/20 Stu Schaeffer MD [address] [place] [address] Hematology/Oncology 02/24/23 Safety Engineer Relationship Specialty Start Date End Date Ming Mcknight MD [address] [place] [address] PCP - General Internal Medicine 12/27/20 Stu Schaeffer MD [address] [place] [address] Hematology/Oncology 02/24/23 Safety Engineer Relationship Specialty Start Date End Date Ming Mcknight MD [address] [place] [address] PCP - General Internal Medicine 12/27/20 Stu Schaeffer MD [address] [place] [address] Hematology/Oncology 02/24/23 Safety Engineer Relationship Specialty Start Date End Date Ming Mcknight MD [address] [place] [address] PCP - General Internal Medicine 12/27/20 Stu Schaeffer MD [address] [place] [address] Hematology/Oncology 02/24/23 Safety Engineer Relationship Specialty Start Date End Date Ming Mcknight MD [address] [place] [address] PCP - General Internal Medicine 12/27/20 Safety Engineer Relationship Specialty Start Date End Date Ming Mcknight MD [address] [place] [address] PCP - General Internal Medicine 12/27/20 Stu Schaeffer MD [address] [place] [address] Hematology/Oncology 02/24/23 INFORMATION SOURCE (unrecogn ized section and content) DATE CREATED AUTHOR 12/26/2023 [facility] FOR RECORDS PERTAINING TO PATIENTS WHO ARE [...] BE BASED ON THE PRIMARY CLINICAL RECORDS. [email or web address] provides no warranty or guarantee of the accuracy or completeness of information in this document.
--- OUTSIDE RECORDS SUMMARY | 2024-01-15 13:51 | XMS RPT_ITS | CCD ---
Author Organization [facility] Care Team Providers Care Ditch Repairer Name Role Phone Nata WILKS, Ming Primary Care Provider [phone] Nata WILKS, Ming Primary Care Provider Cary WILSK, Stu Unavailable Nata WILKS, Ming Primary Care Provider STU SCHAEFFER Referring Unavailable GANTA, MING Primary Care Unavailable SAMIAAMSTU MONTANO Attending Unavailable ZORAN DUMONT Referring Unavailable GANTA, MING Primary Care Unavailable GANTA, MING Primary Care Unavailable ABRAMSTU MONTANO Referring Unavailable ABRAMOVICHSTU Referring Unavailable GANTA, MING Primary Care Unavailable OLDER, SHONDA Referring Unavailable GANTA, MING Primary Care Unavailable OLDER, SHONDA Attending Unavailable GANTA, IMNG Primary Care Unavailable OLDER, SHONDA Referring Unavailable [...] Amoxicillin / Clavulanate Drug Allergy 11-11-2012 Diarrhea [facility] Work Phone: donepezil (1 source) donepezil Drug Allergy 04-26-2023 Itching [facility] Quinolones (antibiotic) (2 sources) Ciprofloxacin Drug Allergy 07-18-2010 Rash [facility] (20 sources) Amoxicillin / Clavulanate; Translations: [AMOXICILLIN-POT CLAVULANATE] Drug Allergy 11-11-2012 Diarrhea [facility] Work Phone: (20 sources) Ciprofloxacin; Translations: [CIPROFLOXACIN] Drug Allergy 07-18-2010 Rash [facility] (20 sources) levoFLOXacin; Translations: [LEVOFLOXACIN] Drug Allergy 04-24-2013 Rash [facility] (13 sources) donepezil; Translations: [DONEPEZIL] Drug Allergy 04-26-2023 Itching [facility] Work Phone: Medications Current Medications Medication [...] on above: Take 1 capsule by [facility] twice daily for 7 days. doxycycline hyclate [...] Comment on above: Take 1 tablet by [facility] two times a day for 5 days. Completed/Discontinued Medications Medication Drug Class(es) Dates Sig (Normalized) Sig (Original) oxyquinoline sulfate 0.26577 mg/mg / sodium dodecyl sulfate 0.0001 mg/mg [...] Comment on above: Take 1 tablet by [facility] once daily. magnesium oxide 200 mg [...] Test Name Value Interpretation Reference Range Facility [facility] 12-24-2023 [facility] Telephone (INTMWS) AINSLEY SORENSON ([id number]) 1935 F Date Time Provider Department 12/24/23 MING MCKNIGHT [facility] During your visit today, we recorded the following information about you: Isatu Moreno LPN 12/24/2023 3:59 PM Signed ----- Message from Ming Mcknight MD sent at 12/24/2023 2:33 PM EDT ----- Hb is a little improved from the last time Ming Vargas MD, Mary, LPN 12/24/2023 3:59 PM Signed Updated via [employer] Isatu Moreno LPN December 24, 2023 3:59 PM Allergies As of Date: 12/24/2023 Noted Allergy Reaction ARICEPT (DONEPEZIL) 04/26/2023 9 - Itching AUGMENTIN (AMOXICILLIN-POT CLAVUL*11/11/2012 6 - Diarrhea CIPROFLOXACIN 07/18/2010 2 - Rash LEVAQUIN (LEVOFLOXACIN) 04/24/2013 2 - Rash Comments: itching rash Date Reviewed: 12/10/2023 Reviewed by: Shonda Tyler APRN.SURGERY ASSISTANT - Fully Assessed Reason for Visit: Results [...] Status:Closed by ISATU MORENO on 12/24/23 Normal [facility] CBC W Auto Differential pane l (Bld)on 12-17-2023 Basophils (Bld) [#/Vol] 0.04 10*3/uL Normal <0.11 [facility] Comment on above: Order Comment: Speci men Type: BLOOD SPECIMENOrdering Facility: [facility] Address: [address] [place] [address] Performed By: #### 5 7021-8 ####[facility] LABIA [id number] [place] [address] [place] Basophils/100 WBC (Bld) 0.3 % Normal [facility] Comment on above: Order Comment: Speci men Type: BLOOD SPECIMENOrdering Facility: [facility] Address: [address] [place] [address] Performed By: #### 5 7021-8 ####[facility]IA [id number] [place] [address] [place] Differential cell count method Nom (Bld) Auto Normal [facility] Comment on above: Order Comment: Speci men Type: BLOOD SPECIMENOrdering Facility: [facility] Address: [address] [place] [address] Performed By: #### 5 7021-8 ####[facility] LABCLIA [id number] [place] [address] [place] Eosinophils (Bld) [#/Vol] 0.07 10*3/uL Normal <0.46 [facility] Comment on above: Order Comment: Speci men Type: BLOOD SPECIMENOrdering Facility: [facility] Address: [address] [place] [address] Performed By: #### 5 7021-8 ####[facility] LABCLIA [id number] [place] [address] [place] Eosinophils/100 WBC (Bld) 0.5 % Normal [facility] Comment on above: Order Comment: Speci men Type: BLOOD SPECIMENOrdering Facility: [facility] Address: [address] [place] [address] Performed By: #### 5 7021-8 ####[facility] [id number] [place] [address] [place] Erythrocyte distribution width (RBC) [Ratio] 22.7 % High 11.5-15.0 [facility] Comment on above: Order Comment: Speci men Type: BLOOD SPECIMENOrdering Facility: [facility] Address: [address] [place] [address] Performed By: #### 5 7021-8 ####[facility]IA [id number] [place] [address] [place] Hematocrit (Bld) [Volume fraction] 31.5 % Low 36.0-46.0 [facility] Comment on above: Order Comment: Speci men Type: BLOOD SPECIMENOrdering Facility: [facility] Address: [address] [place] [address] Performed By: #### 5 7021-8 ####[facility] LABCLIA [id number] [place] [address] [place] Hemoglobin (Bld) [Mass/Vol] 8.8 g/dL Low 11.5-15.5 [facility] Comment on above: Order Comment: Speci men Type: BLOOD SPECIMENOrdering Facility: [facility] Address: [address] [place] [address] Performed By: #### 5 7021-8 ####[facility] LABCLIA [id number] [place] [address] [place] Immature granulocytes (Bld) [#/Vol] 0.10 10*3/uL High <0.10 [facility] Comment on above: Order Comment: Speci men Type: BLOOD SPECIMENOrdering Facility: [facility] Address: [address] [place] [address] Performed By: #### 5 7021-8 ####[facility]CL[facility] [id number] [place] [address] [place] Immature granulocytes/100 WBC (Bld) 0.8 % Normal [facility] Comment on above: Order Comment: Speci men Type: BLOOD SPECIMENOrdering Facility: [facility] Address: [address] [place] [address] Performed By: #### 5 7021-8 ####[facility] LABCL[facility] [id number] [place] [address] [place] Lymphocytes (Bld) [#/Vol] 1.19 10*3/uL Normal 1.00-4.00 [facility] Comment on above: Order Comment: Speci men Type: BLOOD SPECIMENOrdering Facility: [facility] Address: [address] [place] [address] Performed By: #### 5 7021-8 ####[facility] LABCLIA [id number] [place] [address] [place] Lymphocytes/100 WBC (Bld) 9.2 % Normal [facility] Comment on above: Order Comment: Speci men Type: BLOOD SPECIMENOrdering Facility: [facility] Address: [address] [place] [address] Performed By: #### 5 7021-8 ####[facility]IA [id number] [place] [address] [place] MCH (RBC) [Entitic mass] 20.3 pg Low 26.0-34.0 [facility] Comment on above: Order Comment: Speci men Type: BLOOD SPECIMENOrdering Facility: [facility] Address: [address] [place] [address] Performed By: #### 5 7021-8 ####[facility]IA [id number] [place] [address] [place] MCHC (RBC) [Mass/Vol] 27.9 g/dL Low 30.5-36.0 [facility] Comment on above: Order Comment: Speci men Type: BLOOD SPECIMENOrdering Facility: [facility] Address: [address] [place] [address] Performed By: #### 5 7021-8 ####[facility] [id number] [place] [address] [place] MCV (RBC) [Entitic vol] 72.6 fL Low 80.0-100.0 [facility] Comment on above: Order Comment: Speci men Type: BLOOD SPECIMENOrdering Facility: [facility] Address: [address] [place] [address] Performed By: #### 5 7021-8 ####[facility] [id number] [place] [address] [place] Monocytes (Bld) [#/Vol] 0.61 10*3/uL Normal <0.87 [facility] Comment on above: Order Comment: Speci men Type: BLOOD SPECIMENOrdering Facility: [facility] Address: [address] [place] [address] Performed By: #### 5 7021-8 ####[facility] [id number] [place] [address] [place] Monocytes/100 WBC (Bld) 4.7 % Normal [facility] Comment on above: Order Comment: Speci men Type: BLOOD SPECIMENOrdering Facility: [facility] Address: [address] [place] [address] Performed By: #### 5 7021-8 ####[facility] LABCL[facility] [id number] [place] [address] [place] Neutrophils (Bld) [#/Vol] 10.99 10*3/uL High 1.45-7.50 [facility] Comment on above: Order Comment: Speci men Type: BLOOD SPECIMENOrdering Facility: [facility] Address: [address] [place] [address] Performed By: #### 5 7021-8 ####[facility]CL[facility] [id number] [place] [address] [place] Neutrophils/100 WBC (Bld) 84.5 % Normal [facility] Comment on above: Order Comment: Speci men Type: BLOOD SPECIMENOrdering Facility: [facility] Address: [address] [place] [address] Performed By: #### 5 7021-8 ####[facility]CL[facility] [id number] [place] [address] [place] Nucleated RBC (Bld) [#/Vol] 10*3/uL Normal <0.01 [facility] Comment on above: Order Comment: Speci men Type: BLOOD SPECIMENOrdering Facility: [facility] Address: [address] [place] [address] Performed By: #### 5 7021-8 ####[facility]CL[facility] [id number] [place] [address] [place] Nucleated RBC/100 WBC (Bld) [Ratio] 0.0 /100 WBC Normal [facility] Comment on above: Order Comment: Speci men Type: BLOOD SPECIMENOrdering Facility: [facility] Address: [address] [place] [address] Performed By: #### 5 7021-8 ####[facility]CL[facility] [id number] [place] [address] [place] Platelet mean volume (Bld) [Entitic vol] Normal [facility] Comment on above: Order Comment: Speci men Type: BLOOD SPECIMENOrdering Facility: [facility] Address: [address] [place] [address] Result Comment: Unab le to Report. Performed By: #### 5 7021-8 ####[facility] LABCL[facility] [id number] [place] [address] [place] Platelets (Bld) [#/Vol] 214 10*3/uL Normal 150-400 [facility] Comment on above: Order Comment: Speci men Type: BLOOD SPECIMENOrdering Facility: [facility] Address: [address] [place] [address] Performed By: #### 5 7021-8 ####[facility] [id number] [place] [address] [place] RBC (Bld) [#/Vol] 4.34 10*6/uL Normal 3.90-5.20 [facility] Comment on above: Order Comment: Speci men Type: BLOOD SPECIMENOrdering Facility: [facility] Address: [address] [place] [address] Performed By: #### 5 7021-8 ####[facility] [id number] [place] [address] [place] WBC (Bld) [#/Vol] 13.00 10*3/uL High 3.70-11.00 [facility] Comment on above: Order Comment: Speci men Type: BLOOD SPECIMENOrdering Facility: [facility] Address: [address] [place] [address] Performed By: #### 5 7021-8 ####[facility] LABCLIA [id number] [place] [address] [address] [place] [facility] [place] 12-14-2023 [facility] Telephone (INTMWS) AINSLEY SORENSON ([id number]) 1935 F Date Time Provider Department 12/14/23 MING MCKNIGHT INTMWS During your visit today, we recorded the following information about you: Johanna Gamez RN 12/14/2023 9:35 AM Signed Patient's Daughter calls and states that they had taken patient to [facility] yesterday. Patient's Hgb was 6.8 when [...] Date Reviewed: 12/10/2023 Reviewed by: Shonda Tyler APRN.SURGERY ASSISTANT - Fully Assessed Reason for Visit: Patient Update [1234] Primary Visit Diagnosis:Anemia, unspecified type [D64.9] Order(s):COMPLETE BLOOD COUNT AND DIFFERENTIAL [SQCBCDIF] Order #: [id number] FUTURE Prescriptions as of 12/14/2023 - sertraline [...] Encounter Status:Closed by ZORAN GAMBLE on 12/14/23 [facility] [place] 12-13-2023 [facility] Telephone (INTMWS) AINSLEY SORENSON ([id number]) 1935 F Date Time Provider Department 12/13/23 [...] patient daughter who said she lives in [place]. Went over results notes from Shonda Tyler [employer], she said she does not see mother stools so she does not know, she said she sleeps a lot but thought it is medications. She said she just got back home from [place], she said so I need to get back in my car and come back to [place] and take her to the ER. Asked [...] identify a cause. Thank you Shonda Tyler APRN.SURGERY ASSISTANT KelsyDeeptiGRACE 12/13/2023 4:28 PM Signed Daughter notified, was already on way up from [place] and feels she will just plan on going to ER to be on the safe side. Allergies As of Date: 12/13/2023 Noted Allergy Reaction ARICEPT (DONEPEZIL) 04/26/2023 9 - Itching AUGMENTIN (AMOXICILLIN-POT CLAVUL*11/11/2012 6 - Diarrhea CIPROFLOXACIN 07/18/2010 2 - Rash LEVAQUIN (LEVOFLOXACIN) 04/24/2013 2 - Rash Comments: itching rash Date Reviewed: 12/10/2023 Reviewed by: Shonda Tyler APRN.SURGERY ASSISTANT - Fully Assessed Reason for Visit: Results [...] Status:Closed by DEEPTI TIERNEY on 12/13/23 Normal [facility] CBC W Auto Differential pane l (Bld)on 12-10-2023 Basophils (Bld) [#/Vol] 0.04 10*3/uL Normal <0.11 [facility] Comment on above: Order Comment: Speci men Type: BLOOD SPECIMENOrdering Facility: [facility] Address: [address] [place] [address] Performed By: #### 5 7021-8 ####[facility]CL[facility] [id number] [place] [address] [place] Basophils/100 WBC (Bld) 0.4 % Normal [facility] Comment on above: Order Comment: Speci men Type: BLOOD SPECIMENOrdering Facility: [facility] Address: [address] [place] [address] Performed By: #### 5 7021-8 ####[facility]CL[facility] [id number] [place] [address] [place] Differential cell count method Nom (Bld) Auto Normal [facility] Comment on above: Order Comment: Speci men Type: BLOOD SPECIMENOrdering Facility: [facility] Address: [address] [place] [address] Performed By: #### 5 7021-8 ####[facility]CL[facility] [id number] [place] [address] [place] Eosinophils (Bld) [#/Vol] 0.07 10*3/uL Normal <0.46 [facility] Comment on above: Order Comment: Speci men Type: BLOOD SPECIMENOrdering Facility: [facility] Address: [address] [place] [address] Performed By: #### 5 7021-8 ####[facility]CL[facility] [id number] [place] [address] [place] Eosinophils/100 WBC (Bld) 0.8 % Normal [facility] Comment on above: Order Comment: Speci men Type: BLOOD SPECIMENOrdering Facility: [facility] Address: [address] [place] [address] Performed By: #### 5 7021-8 ####[facility]CL[facility] [id number] [place] [address] [place] Erythrocyte distribution width (RBC) [Ratio] 20.1 % High 11.5-15.0 [facility] Comment on above: Order Comment: Speci men Type: BLOOD SPECIMENOrdering Facility: [facility] Address: [address] [place] [address] Performed By: #### 5 7021-8 ####[facility]CL[facility] [id number] [place] [address] [place] Hematocrit (Bld) [Volume fraction] 26.9 % Low 36.0-46.0 [facility] Comment on above: Order Comment: Speci men Type: BLOOD SPECIMENOrdering Facility: [facility] Address: [address] [place] [address] Performed By: #### 5 7021-8 ####[facility]CL[facility] [id number] [place] [address] [place] Hemoglobin (Bld) [Mass/Vol] 7.1 g/dL Low 11.5-15.5 [facility] Comment on above: Order Comment: Speci men Type: BLOOD SPECIMENOrdering Facility: [facility] Address: [address] [place] [address] Performed By: #### 5 7021-8 ####[facility] [id number] [place] [address] [place] Immature granulocytes (Bld) [#/Vol] 10*3/uL Normal <0.10 [facility] Comment on above: Order Comment: Speci men Type: BLOOD SPECIMENOrdering Facility: [facility] Address: [address] [place] [address] Performed By: #### 5 7021-8 ####[facility] [id number] [place] [address] [place] Immature granulocytes/100 WBC (Bld) 0.2 % Normal [facility] Comment on above: Order Comment: Speci men Type: BLOOD SPECIMENOrdering Facility: [facility] Address: [address] [place] [address] Performed By: #### 5 7021-8 ####[facility] [id number] [place] [address] [place] Lymphocytes (Bld) [#/Vol] 1.16 10*3/uL Normal 1.00-4.00 [facility] Comment on above: Order Comment: Speci men Type: BLOOD SPECIMENOrdering Facility: [facility] Address: [address] [place] [address] Performed By: #### 5 7021-8 ####[facility] [id number] [place] [address] [place] Lymphocytes/100 WBC (Bld) 12.8 % Normal [facility] Comment on above: Order Comment: Speci men Type: BLOOD SPECIMENOrdering Facility: [facility] Address: [address] [place] [address] Performed By: #### 5 7021-8 ####[facility] [id number] [place] [address] [place] MCH (RBC) [Entitic mass] 18.3 pg Low 26.0-34.0 [facility] Comment on above: Order Comment: Speci men Type: BLOOD SPECIMENOrdering Facility: [facility] Address: [address] [place] [address] Performed By: #### 5 7021-8 ####[facility]CL[facility] [id number] [place] [address] [place] MCHC (RBC) [Mass/Vol] 26.4 g/dL Low 30.5-36.0 [facility] Comment on above: Order Comment: Speci men Type: BLOOD SPECIMENOrdering Facility: [facility] Address: [address] [place] [address] Performed By: #### 5 7021-8 ####[facility] [id number] [place] [address] [place] MCV (RBC) [Entitic vol] 69.5 fL Low 80.0-100.0 [facility] Comment on above: Order Comment: Speci men Type: BLOOD SPECIMENOrdering Facility: [facility] Address: [address] [place] [address] Performed By: #### 5 7021-8 ####[facility]CL[facility] [id number] [place] [address] [place] Monocytes (Bld) [#/Vol] 0.69 10*3/uL Normal <0.87 [facility] Comment on above: Order Comment: Speci men Type: BLOOD SPECIMENOrdering Facility: [facility] Address: [address] [place] [address] Performed By: #### 5 7021-8 ####[facility]CL[facility] [id number] [place] [address] [place] Monocytes/100 WBC (Bld) 7.6 % Normal [facility] Comment on above: Order Comment: Speci men Type: BLOOD SPECIMENOrdering Facility: [facility] Address: [address] [place] [address] Performed By: #### 5 7021-8 ####[facility] [id number] [place] [address] [place] Neutrophils (Bld) [#/Vol] 7.09 10*3/uL Normal 1.45-7.50 [facility] Comment on above: Order Comment: Speci men Type: BLOOD SPECIMENOrdering Facility: [facility] Address: [address] [place] [address] Performed By: #### 5 7021-8 ####[facility] [id number] [place] [address] [place] Neutrophils/100 WBC (Bld) 78.2 % Normal [facility] Comment on above: Order Comment: Speci men Type: BLOOD SPECIMENOrdering Facility: [facility] Address: [address] [place] [address] Performed By: #### 5 7021-8 ####[facility] [id number] [place] [address] [place] Nucleated RBC (Bld) [#/Vol] 10*3/uL Normal <0.01 [facility] Comment on above: Order Comment: Speci men Type: BLOOD SPECIMENOrdering Facility: [facility] Address: [address] [place] [address] Performed By: #### 5 7021-8 ####[facility] [id number] [place] [address] [place] Nucleated RBC/100 WBC (Bld) [Ratio] 0.0 /100 WBC Normal [facility] Comment on above: Order Comment: Speci men Type: BLOOD SPECIMENOrdering Facility: [facility] Address: [address] [place] [address] Performed By: #### 5 7021-8 ####[facility] [id number] [place] [address] [place] Platelet mean volume (Bld) [Entitic vol] Normal [facility] Comment on above: Order Comment: Speci men Type: BLOOD SPECIMENOrdering Facility: [facility] Address: [address] [place] [address] Result Comment: Unab le to Report. Performed By: #### 5 7021-8 ####[facility] [id number] [place] [address] [place] Platelets (Bld) [#/Vol] 195 10*3/uL Normal 150-400 [facility] Comment on above: Order Comment: Speci men Type: BLOOD SPECIMENOrdering Facility: [facility] Address: [address] [place] [address] Performed By: #### 5 7021-8 ####[facility] [id number] [place] [address] [place] RBC (Bld) [#/Vol] 3.87 10*6/uL Low 3.90-5.20 [facility] Comment on above: Order Comment: Speci men Type: BLOOD SPECIMENOrdering Facility: [facility] Address: [address] [place] [address] Performed By: #### 5 7021-8 ####[facility] [id number] [place] [address] [place] WBC (Bld) [#/Vol] 9.07 10*3/uL Normal 3.70-11.00 [facility] Comment on above: Order Comment: Speci men Type: BLOOD SPECIMENOrdering Facility: [facility] Address: [address] [place] [address] Performed By: #### 5 7021-8 ####[facility] [id number] [place] [id number] [id number] [facility] CNOVon 12-10-2023 CNOV Office Visit (INTMWS ) AINSLEY SORENSON ([id number]) 1935 F Date Time Provider Department 12/10/23 2:00 PM SHONDA TYLER INTMWANDA During your visit today, we recorded the following information about you: Pulse Blood pressure Weight 68/minute 128/74 47.3 kg Shonda Tyler APRN.SURGERY ASSISTANT 12/10/2023 2:57 PM Signed CC: Patient presents [...] 11/21/2023 R (more content not included)... Normal [facility] Comprehensive metabolic 2000 panelon 12-10-2023 Albumin [Mass/Vol] 3.9 g/dL Normal 3.9-4.9 [facility] Comment on above: Order Comment: Chiquita thornton Type: BLOOD SPECIMENOrdering Facility: [facility] Address: [address] [place] [address] Performed By: #### 3 051-0, 3016-3, 76925-0, 7434-7 ####[facility] [id number] [place] [address] [place] ALP [Catalytic activity/Vol] 94 U/L Normal 34-123 [facility] Comment on above: Order Comment: Chiquita thornton Type: BLOOD SPECIMENOrdering Facility: [facility] Address: [address] [place] [address] Performed By: #### 3 051-0, 3016-3, 11214-1, 3023-7 ####[facility] [id number] [place] [address] [place] ALT [Catalytic activity/Vol] 7 U/L Normal 7-38 [facility] Comment on above: Order Comment: Speci men Type: BLOOD SPECIMENOrdering Facility: [facility] Address: [address] [place] [address] Performed By: #### 3 051-0, 3016-3, 11563-3, 3023-7 ####[facility] [id number] [place] [address] [place] Anion gap [Moles/Vol] 13 mmol/L Normal 8-15 [facility] Comment on above: Order Comment: Speci men Type: BLOOD SPECIMENOrdering Facility: [facility] Address: [address] [place] [address] Performed By: #### 3 051-0, 6-3, 92661-5, 3023-7 ####[facility] LABIA [id number] [place] [address] [place] AST [Catalytic activity/Vol] 20 U/L Normal 13-35 [facility] Comment on above: Order Comment: Speci men Type: BLOOD SPECIMENOrdering Facility: [facility] Address: [address] [place] [address] Performed By: #### 3 051-0, 3016-3, 86031-5, 3023-7 ####[facility] LABCLIA [id number] [place] [address] [place] Bilirubin [Mass/Vol] 0.3 mg/dL Normal 0.2-1.3 [facility] Comment on above: Order Comment: Speci men Type: BLOOD SPECIMENOrdering Facility: [facility] Address: [address] [place] [address] Performed By: #### 3 051-0, 6-3, 21698-8, 3024-7 ####[facility] LABCLIA [id number] [address] [address] [place] Calcium [Mass/Vol] 9.0 mg/dL Normal 8.5-10.2 [facility] Comment on above: Order Comment: Speci men Type: BLOOD SPECIMENOrdering Facility: [facility] Address: [address] [place] [address] Performed By: #### 3 051-0, 3016-3, 46377-9, 3023-7 ####[facility] LABIA [id number] [place] [address] [place] Chloride [Moles/Vol] 106 mmol/L Normal 98-107 [facility] Comment on above: Order Comment: Speci men Type: BLOOD SPECIMENOrdering Facility: [facility] Address: [address] [place] [address] Performed By: #### 3 051-0, 6-3, 75888-3, 3023-7 ####[facility] LABIA [id number] [place] [address] [place] CO2 [Moles/Vol] 22 mmol/L Normal 22-30 [facility] Comment on above: Order Comment: Speci men Type: BLOOD SPECIMENOrdering Facility: [facility] Address: [address] [place] [address] Performed By: #### 3 051-0, 3016-3, 56409-3, 3024-7 ####[facility] LABIA [id number] [place] [address] [place] Creatinine [Mass/Vol] 1.31 mg/dL High 0.58-0.96 [facility] Comment on above: Order Comment: Speci men Type: BLOOD SPECIMENOrdering Facility: [facility] Address: [address] [place] [address] Performed By: #### 3 051-0, 3016-3, 18700-3, 3024-7 ####[facility] LABCLIA [id number] [place] [address] [place] Creatinine and Glomerular filtration rate.predicted panel (S/P/Bld) 40 mL/min/1.73m??? Low >=60 [facility] Comment on above: Order Comment: Chiquita thornton Type: BLOOD SPECIMENOrdering Facility: [facility] Address: [address] [place] [address] Result Comment: Genesis mated Glomerular Filtration Rate [...] GFR. Performed By: #### 3 051-0, 3016-3, 78616-6, 3024-7 ####[facility] LABCLIA [id number] [place] [id number] [place] Glucose [Mass/Vol] 99 mg/dL Normal 74-99 [facility] Comment on above: Order Comment: Chiquita thornton Type: BLOOD SPECIMENOrdering Facility: [facility] Address: [address] [place] [address] Result Comment: The [place] [employer] Association (ADA) provides guidance for cutoff [...] Standards of Medical Care in Diabetes 2016, [place] [employer]. Diabetes Care. 2016.39(Suppl 1). Performed By: #### 3 051-0, 3016-3, 00846-9, 7 ####[facility] LABCLIA [id number] [address] [address] [place] Potassium [Moles/Vol] 4.1 mmol/L Normal 3.7-5.1 [facility] Comment on above: Order Comment: Speci men Type: BLOOD SPECIMENOrdering Facility: [facility] Address: [address] [place] [address] Performed By: #### 3 051-0, 3016-3, 67999-3, 7 ####[facility] LABIA [id number] [place] [address] [place] Protein [Mass/Vol] 6.4 g/dL Normal 6.3-8.0 [facility] Comment on above: Order Comment: Speci men Type: BLOOD SPECIMENOrdering Facility: [facility] Address: [address] [place] [address] Performed By: #### 3 051-0, 3016-3, 17422-1, 7 ####[facility] LABIA [id number] [place] [id number] [place] Sodium [Moles/Vol] 141 mmol/L Normal 136-144 [facility] Comment on above: Order Comment: Speci men Type: BLOOD SPECIMENOrdering Facility: [facility] Address: [address] [place] [address] Performed By: #### 3 051-0, 3016-3, 85439-9, 7 ####[facility] LABCLIA [id number] [address] [address] [place] Urea nitrogen [Mass/Vol] 18 mg/dL Normal 7-21 [facility] Comment on above: Order Comment: Speci men Type: BLOOD SPECIMENOrdering Facility: [facility] Address: [address] [place] [address] Performed By: #### 3 051-0, 3016-3, 77026-0, 7 ####[facility] LABCLIA [id number] [place] [address] [place] T3Free SerPl-mCncon 12-10-19 24 Free T3 [Mass/Vol] 2.2 pg/mL Low 2.3-4.1 [facility] Comment on above: Order Comment: Speci men Type: BLOOD SPECIMENOrdering Facility: [facility] Address: [address] [place] [address] Performed By: #### 3 051-0, 6-3, 20088-0, 7 ####[facility] LABCLIA [id number] [place] [address] [place] T4 Free SerPl-mCncon 024 Free T4 [Mass/Vol] 1.1 ng/dL Normal 0.9-1.7 [facility] Comment on above: Order Comment: Speci men Type: BLOOD SPECIMENOrdering Facility: [facility] Address: [address] [place] [address] Performed By: #### 3 051-0, 6-3, 83497-3, 7 ####[facility] LABCLIA [id number] [place] [address] [place] TSH SerPl-aCncon 12-10-2023 TSH Qn 2.210 m[IU]/L Normal 0.270-4.200 [facility] Comment on above: Order Comment: Speci men Type: BLOOD SPECIMENOrdering Facility: [facility] Address: [address] [place] [address] Performed By: #### 3 051-0, 3016-3, 40068-1, 7 ####[facility] LABCLIA [id number] [address] [address] [facility] [place]-20[facility] AINSLEY SORENSON ([id number]) 1935 F Date Time Provider Department 09/24/23 KRYSTAL MEZA [facility] During your visit today, we recorded the following information about you: Krystal Meza APRN.SABIHA 09/24/2023 7:32 AM Signed Please let her know that her urine culture does show a UTI. I don't see that Shonda sent her in an antibiotic? Please confirm this with her and I will send one in. Krystal Meza APRN.Jillian Beckre LPN 09/24/2023 8:10 AM Signed Left message to return call. Suzy Lindo RN 09/24/2023 11:15 AM Signed Pts daughter called and is notified of providers results and instructions. She voices understanding and states she was never notified about any antibiotic. Please send antibiotic to [facility] in [place] and call and leave a VM on the daughters phone to let her know when it was sent. KEYONNA Steward Rebekah, APRN.[facility] 09/24/2023 2:47 PM Signed The following [...] Encounter Status:Closed by LILIA RICHMOND on 09/24/23 [facility] Telephone (RAISA) AINSLEY SORENSON ([id number]) 1935 F Date Time Provider Department 09/22/23 [...] Status:Closed by SHONDA TYLER on 10/14/23 Normal [facility] Bacteria Ur Culton 4 Bacteria identified Cx [...] Resistant >=1 Nitrofurantoin R 65 F Abnormal [facility] Comment on above: Performed By: #### 6 30-4 ####[facility] LABCLIA [id number] [place] [address] [place] Urinalysis complete panel (U )on 09-21-2023 Bacteria LM.HPF (Urine sed) [#/Area] Negative Normal Negative [facility] Comment on above: Order Comment: Speci men Type: URINE SPECIMENOrdering Facility: [facility] Address: [address] [place] [address] Performed By: #### 2 4356-8 ####[facility] LABCLIA [id number] [place] [address] [place] Bilirubin Ql (U) Negative Normal Negative [facility] Comment on above: Order Comment: Speci men Type: URINE SPECIMENOrdering Facility: [facility] Address: [address] [place] [address] Performed By: #### 2 4356-8 ####[facility] LABIA [id number] [place] [address] [place] Clarity (Unsp spec) Clear Normal Clear [facility] Comment on above: Order Comment: Speci men Type: URINE SPECIMENOrdering Facility: [facility] Address: [address] [place] [address] Performed By: #### 2 4356-8 ####[facility] LABCLIA [id number] [place] [address] [place] Color (U) Yellow Normal Yellow [facility] Comment on above: Order Comment: Speci men Type: URINE SPECIMENOrdering Facility: [facility] Address: [address] [place] [address] Performed By: #### 2 4356-8 ####[facility] LABCLIA [id number] [place] [address] [place] Epithelial cells LM.HPF (Urine sed) [#/Area] None Seen Normal [facility] Comment on above: Order Comment: Speci men Type: URINE SPECIMENOrdering Facility: [facility] Address: [address] [place] [address] Performed By: #### 2 4356-8 ####[facility] LABCLIA [id number] [place] [address] [place] Glucose Test strip (U) [Mass/Vol] Negative Normal Negative [facility] Comment on above: Order Comment: Speci men Type: URINE SPECIMENOrdering Facility: [facility] Address: [address] [place] [address] Performed By: #### 2 4356-8 ####[facility] LABIA [id number] [place] [address] [place] Hemoglobin Ql (U) Negative Normal Negative [facility] Comment on above: Order Comment: Speci men Type: URINE SPECIMENOrdering Facility: [facility] Address: [address] [place] [address] Performed By: #### 2 4356-8 ####[facility] LABCLIA [id number] [place] [address] [place] Hyaline casts (Urine sed) [#/Area] 0 /[LPF] Normal 0 /LPF [facility] Comment on above: Order Comment: Speci men Type: URINE SPECIMENOrdering Facility: [facility] Address: [address] [place] [address] Performed By: #### 2 4356-8 ####[facility] LABCLIA [id number] [place] [address] [place] Ketones Ql (U) Negative Normal Negative [facility] Comment on above: Order Comment: Speci men Type: URINE SPECIMENOrdering Facility: [facility] Address: [address] [place] [address] Performed By: #### 2 4356-8 ####[facility] LABCLIA [id number] [place] [address] [place] Leukocyte esterase Test strip Ql (U) 2+ Abnormal Negative [facility] Comment on above: Order Comment: Speci men Type: URINE SPECIMENOrdering Facility: [facility] Address: [address] [place] [address] Performed By: #### 2 4356-8 ####[facility] LABCLIA [id number] [place] [address] [place] Nitrite Ql (U) Negative Normal Negative [facility] Comment on above: Order Comment: Speci men Type: URINE SPECIMENOrdering Facility: [facility] Address: [address] [place] [address] Performed By: #### 2 4356-8 ####[facility] LABCLIA [id number] [place] [address] [place] pH (U) 7.0 [pH] Normal <8.5 [facility] Comment on above: Order Comment: Speci men Type: URINE SPECIMENOrdering Facility: [facility] Address: [address] [place] [address] Performed By: #### 2 4356-8 ####[facility] LABCLIA [id number] [place] [address] [place] Protein (U) [Mass/Vol] Negative Normal Negative [facility] Comment on above: Order Comment: Speci men Type: URINE SPECIMENOrdering Facility: [facility] Address: [address] [place] [address] Performed By: #### 2 4356-8 ####[facility] LABIA [id number] [place] [address] [place] RBC LM.HPF (Urine sed) [#/Area] 0-2 /HPF Normal 0-2 /HPF [facility] Comment on above: Order Comment: Speci men Type: URINE SPECIMENOrdering Facility: [facility] Address: [address] [place] [address] Performed By: #### 2 4356-8 ####[facility] [id number] [place] [address] [place] Specific gravity (U) [Rel density] 1.017 Normal 1.005-1.030 [facility] Comment on above: Order Comment: Speci men Type: URINE SPECIMENOrdering Facility: [facility] Address: [address] [place] [address] Performed By: #### 2 4356-8 ####[facility] LABIA [id number] [place] [address] [place] Urobilinogen Ql (U) 1.0 EU/dL Normal 0.2-1.0 EU/dL [facility] Comment on above: Order Comment: Speci men Type: URINE SPECIMENOrdering Facility: [facility] Address: [address] [place] [address] Performed By: #### 2 4356-8 ####[facility] LABIA [id number] [place] [address] [place] WBC LM.HPF (Urine sed) [#/Area] 11-20 /HPF Abnormal 0-5 /HPF [facility] Comment on above: Order Comment: Speci men Type: URINE SPECIMENOrdering Facility: [facility] Address: [address] [place] [address] Performed By: #### 2 4356-8 ####[facility] BOUBACAR [id number] ROLAND SANCHES [id number] [facility] [place] 08-18-2023 [facility] Telephone (INTMWS) AINSLEY SORENSON ([id number]) 1935 F Date Time Provider Department 08/18/23 SHONDA TYLER During your visit today, we recorded the following information about you: Shonda Tyler APRN.SURGERY ASSISTANT 08/18/2023 2:32 PM Signed Urine still with [...] 0 URINALYSIS, WITH MICROSCOPIC [SQUAWMIC] Order #: [id number] FUTURE URINE CULTURE [SQURCUL] Order #: [id number] FUTURE Prescriptions as of 08/18/2023 - sulfamethoxazole-trime [...] Status:Closed by DEEPTI TIERNEY on 08/18/23 Normal [facility] Bacteria Ur Culton 4 Bacteria identified Cx Nom (U) ORGANISM ID: 1 50,000-<100,000 CFU/ml Lactose negative gram negative bacilli No susceptibility testing done. Call lab within 72 hours to initiate work-up if clinically indicated. ORGANISM ID: 2 50,000-<100,000 CFU/ml Normal urogenital aleksandr Normal [facility] Comment on above: Performed By: #### 6 30-4 ####[facility] LABCLIA [id number] [address] STATES OF [facility] CNOVon 08-13-2023 CNOV Office Visit (INTMWS ) AINSLEY SORENSON ([id number]) 1935 F Date Time Provider Department 08/13/23 [...] ICD9: V13.0 (more content not included)... Normal [facility] UA DIP, URINE (POC)on 2023 BILIRUBIN UA (POCT) Negative Negative [facility] CLARITY UA (POCT) Slightly Cloudy Cl [facility] COLOR UA (POCT) Other [facility] GLUCOSE UA (POCT) Negative Negative mg/dL [facility] Hemoglobin Ql (U) Trace-intact Abnormal Negative [facility] Interpretation and review of laboratory results Abnormal [facility] KETONE UA (POCT) Negative Negative mg/dL [facility] LEUKOCYTES UA (POCT) Small Abnormal Negative [facility] NITRITE UA (POCT) Negative [facility] PH UA (POCT) 6.0 4.5 - 8.0 [facility] Protein Ql (U) Negative Negative mg/dL [facility] SPECIFIC GRAVITY UA (POCT) 1.020 1.005 - 1.030 [facility] UROBILINOGEN UA (POCT) 0.2 Normal E.U./dL [facility] Location:[address], [place], [place], [id number] [place] [address] POINT OF CARE [facility] 04-29-2023 SABIHAN Telephone (INTMWS) AINSLEY SORENSON ([id number]) 1935 F Date Time Provider Department 04/29/23 [...] Status:Closed by SUZY LINDO on 04/29/23 Normal [facility] Urinalysis complete panel (U )on 04-27-2023 Bacteria LM.HPF (Urine sed) [#/Area] Negative Normal Negative [facility] Comment on above: Order Comment: Speci men Type: URINE SPECIMENOrdering Facility: [facility] Address: [address] [place] [address] Performed By: #### 2 4356-8 ####[facility] LABCLIA [id number] [place] [address] [place] Bilirubin Ql (U) Negative Normal Negative [facility] Comment on above: Order Comment: Speci men Type: URINE SPECIMENOrdering Facility: [facility] Address: [address] [place] [address] Performed By: #### 2 4356-8 ####[facility] LABCLIA [id number] [place] [address] [place] Clarity (Unsp spec) Clear Normal Clear [facility] Comment on above: Order Comment: Speci men Type: URINE SPECIMENOrdering Facility: [facility] Address: [address] [place] [address] Performed By: #### 2 4356-8 ####[facility] LABCLIA [id number] [place] [address] [place] Color (U) Yellow Normal Yellow [facility] Comment on above: Order Comment: Speci men Type: URINE SPECIMENOrdering Facility: [facility] Address: [address] [place] [address] Performed By: #### 2 4356-8 ####[facility] LABCLIA [id number] [place] [address] [place] Epithelial cells LM.HPF (Urine sed) [#/Area] None Seen Normal [facility] Comment on above: Order Comment: Speci men Type: URINE SPECIMENOrdering Facility: [facility] Address: [address] [place] [address] Performed By: #### 2 4356-8 ####[facility] LABCLIA [id number] [place] [address] [place] Glucose Test strip (U) [Mass/Vol] Negative Normal Negative [facility] Comment on above: Order Comment: Speci men Type: URINE SPECIMENOrdering Facility: [facility] Address: [address] [place] [address] Performed By: #### 2 4356-8 ####[facility] LABCLIA [id number] [place] [address] [place] Hemoglobin Ql (U) Negative Normal Negative [facility] Comment on above: Order Comment: Speci men Type: URINE SPECIMENOrdering Facility: [facility] Address: [address] [place] [address] Performed By: #### 2 4356-8 ####[facility] LABCLIA [id number] [place] [address] [place] Hyaline casts (Urine sed) [#/Area] 1-3 /LPF Abnormal 0 /LPF [facility] Comment on above: Order Comment: Speci men Type: URINE SPECIMENOrdering Facility: [facility] Address: [address] [place] [address] Performed By: #### 2 4356-8 ####[facility] LABCLIA [id number] [place] [address] [place] Ketones Ql (U) Negative Normal Negative [facility] Comment on above: Order Comment: Speci men Type: URINE SPECIMENOrdering Facility: [facility] Address: [address] [place] [address] Performed By: #### 2 4356-8 ####[facility] LABCLIA [id number] [place] [address] [place] Leukocyte esterase Test strip Ql (U) 2+ Abnormal Negative [facility] Comment on above: Order Comment: Speci men Type: URINE SPECIMENOrdering Facility: [facility] Address: [address] [place] [address] Performed By: #### 2 4356-8 ####[facility] LABCLIA [id number] [place] [id number] [place] Nitrite Ql (U) Negative Normal Negative [facility] Comment on above: Order Comment: Speci men Type: URINE SPECIMENOrdering Facility: [facility] Address: [address] [place] [address] Performed By: #### 2 4356-8 ####[facility] LABIA [id number] [place] [address] [place] pH (U) 6.0 [pH] Normal <8.5 [facility] Comment on above: Order Comment: Speci men Type: URINE SPECIMENOrdering Facility: [facility] Address: [address] [place] [address] Performed By: #### 2 4356-8 ####[facility] LABIA [id number] [place] [address] [place] Protein (U) [Mass/Vol] Negative Normal Negative [facility] Comment on above: Order Comment: Speci men Type: URINE SPECIMENOrdering Facility: [facility] Address: [address] [place] [address] Performed By: #### 2 4356-8 ####[facility] LABIA [id number] [place] [address] [place] RBC LM.HPF (Urine sed) [#/Area] 0-2 /HPF Normal 0-2 /HPF [facility] Comment on above: Order Comment: Speci men Type: URINE SPECIMENOrdering Facility: [facility] Address: [address] [place] [address] Performed By: #### 2 4356-8 ####[facility] LABIA [id number] [place] [address] [place] Specific gravity (U) [Rel density] 1.017 Normal 1.005-1.030 [facility] Comment on above: Order Comment: Speci men Type: URINE SPECIMENOrdering Facility: [facility] Address: [address] [place] [address] Performed By: #### 2 4356-8 ####[facility] LABIA [id number] [place] [address] [place] Urobilinogen Ql (U) 1.0 EU/dL Normal 0.2-1.0 EU/dL Cl [facility] Comment on above: Order Comment: Speci men Type: URINE SPECIMENOrdering Facility: [facility] Address: [address] [place] [address] Performed By: #### 2 4356-8 ####[facility] LABIA [id number] [place] [address] [place] WBC LM.HPF (Urine sed) [#/Area] /[HPF] Abnormal 0-5 /HPF [facility] Comment on above: Order Comment: Speci men Type: URINE SPECIMENOrdering Facility: [facility] Address: [address] [place] [address] Performed By: #### 2 4356-8 ####[facility] LABIA [id number] [place] [address] [place] Urinalysis complete pnl [...] , Intermediate >32 , Resistant >64 Abnormal [facility] Comment on above: Order Comment: Speci men Type: URINE SPECIMENOrdering Facility: [facility] Address: [address] [place] [address] Performed By: #### 2 4356-8 ####[facility] LABCHRISTI [id number] [address] [address] [place] CNOVon 04-26-2023 CNOV Office Visit (INTMWS ) AINSLEY SORENSON ([id number]) 1935 F Date Time Provider Department 04/26/23 1:20 PM OLDER, SHONDA KLINE During your visit today, we recorded the following information about you: Pulse Respiration Blood pressure Weight 72/minute 16/minute 128/70 49 kg OlderShonda APRN.SURGERY ASSISTANT 04/26/2023 2:41 PM Signed CC: Patient presents [...] SENTENCE 0 (more content not included)... Normal [facility] Comprehensive metabolic 2000 panelon 04-26-2023 Albumin [Mass/Vol] 4.2 g/dL Normal 3.9-4.9 [facility] Comment on above: Order Comment: Speci men Type: BLOOD SPECIMENOrdering Facility: [facility] Address: [address] [place] [address] Performed By: #### 2 4323-8, 3016-3, 302-7 ####[facility] [id number] [place] [address] [place] ALP [Catalytic activity/Vol] 105 U/L Normal 34-123 [facility] Comment on above: Order Comment: Speci men Type: BLOOD SPECIMENOrdering Facility: [facility] Address: [address] [place] [address] Performed By: #### 2 4323-8, 3016-3, 3024-7 ####[facility] LABIA [id number] [place] [address] [place] ALT [Catalytic activity/Vol] 8 U/L Normal 7-38 [facility] Comment on above: Order Comment: Speci men Type: BLOOD SPECIMENOrdering Facility: [facility] Address: [address] [place] [address] Performed By: #### 2 4323-8, 3016-3, 302-7 ####[facility] LABCLIA [id number] [address] [address] [place] Anion gap [Moles/Vol] 11 mmol/L Normal 9-18 [facility] Comment on above: Order Comment: Speci men Type: BLOOD SPECIMENOrdering Facility: [facility] Address: [address] [place] [address] Performed By: #### 2 4323-8, 6-3, 7 ####[facility] LABIA [id number] [place] [address] [place] AST [Catalytic activity/Vol] 18 U/L Normal 13-35 [facility] Comment on above: Order Comment: Speci men Type: BLOOD SPECIMENOrdering Facility: [facility] Address: [address] [place], [place] [address] Performed By: #### 2 4323-8, 3015-3, 7 ####[facility] LABIA [id number] [place] [address] [place] Bilirubin [Mass/Vol] 0.3 mg/dL Normal 0.2-1.3 [facility] Comment on above: Order Comment: Speci men Type: BLOOD SPECIMENOrdering Facility: [facility] Address: [address] [place] [address] Performed By: #### 2 4323-8, 3015-3, 7 ####[facility] LABIA [id number] [address] [address] [place] Calcium [Mass/Vol] 9.6 mg/dL Normal 8.5-10.2 [facility] Comment on above: Order Comment: Speci men Type: BLOOD SPECIMENOrdering Facility: [facility] Address: [address] [place] [address] Performed By: #### 2 4323-8, 6-3, 3023-7 ####[facility] LABIA [id number] [address] [address] [place] Chloride [Moles/Vol] 104 mmol/L Normal 97-105 [facility] Comment on above: Order Comment: Speci men Type: BLOOD SPECIMENOrdering Facility: [facility] Address: [address] [place] [address] Performed By: #### 2 4323-8, 6-3, 7 ####[facility] LABIA [id number] [place] [address] [place] CO2 [Moles/Vol] 26 mmol/L Normal 22-30 [facility] Comment on above: Order Comment: Speci men Type: BLOOD SPECIMENOrdering Facility: [facility] Address: [address] [place] [address] Performed By: #### 2 4323-8, 3015-3, 7 ####[facility] LABIA [id number] [place] [address] [place] Creatinine [Mass/Vol] 1.25 mg/dL High 0.58-0.96 [facility] Comment on above: Order Comment: Speci men Type: BLOOD SPECIMENOrdering Facility: [facility] Address: [address] [place] [address] Performed By: #### 2 4323-8, 3, 7 ####[facility] LABIA [id number] [address] [address] [place] Creatinine and Glomerular filtration rate.predicted panel (S/P/Bld) 42 mL/min/1.73m??? Low >=60 [facility] Comment on above: Order Comment: Speci men Type: BLOOD SPECIMENOrdering Facility: [facility] Address: [address] [place] [address] Result Comment: Genesis mated Glomerular Filtration Rate [...] Performed By: #### 2 4323-8, 6-3, 3023-09 ####[facility] LABCLIA [id number] [facility] [address] [address] [place] Glucose [Mass/Vol] 100 mg/dL High 74-99 [facility] Comment on above: Order Comment: Speci men Type: BLOOD SPECIMENOrdering Facility: [facility] Address: [address] [place] [address] Result Comment: The [place] [employer] (ADA) provides guidance for cutoff [...] Standards of Medical Care in Diabetes 2016, [place] [employer]. Diabetes Care. 2016.39(Suppl 1). Performed By: #### 2 4323-8, 3015-3, 3023-09 ####[facility] LABCLIA [id number] [address] [address] [place] Potassium [Moles/Vol] 4.2 mmol/L Normal 3.7-5.1 [facility] Comment on above: Order Comment: Speci men Type: BLOOD SPECIMENOrdering Facility: [facility] Address: [address] [place] [address] Performed By: #### 2 4323-8, 6-3, 7 ####[facility] LABCLIA [id number] [place] [address] [place] Protein [Mass/Vol] 7.0 g/dL Normal 6.3-8.0 [facility] Comment on above: Order Comment: Speci men Type: BLOOD SPECIMENOrdering Facility: [facility] Address: [address] [place] [address] Performed By: #### 2 4323-8, 3016-3, 3023-7 ####[facility] LABCLIA [id number] [place] [address] [place] Sodium [Moles/Vol] 141 mmol/L Normal 136-144 [facility] Comment on above: Order Comment: Speci men Type: BLOOD SPECIMENOrdering Facility: [facility] Address: [address] [place] [address] Performed By: #### 2 4323-8, 3016-3, 7 ####[facility] LABCLIA [id number] [place] [address] [place] Urea nitrogen [Mass/Vol] 15 mg/dL Normal 7-21 [facility] Comment on above: Order Comment: Speci men Type: BLOOD SPECIMENOrdering Facility: [facility] Address: [address] [place] [address] Performed By: #### 2 4323-8, 3016-3, 7 ####[facility] LABCLIA [id number] [place] [address] [place] T4 Free SerPl-mCncon 024 Free T4 [Mass/Vol] 1.2 ng/dL Normal 0.9-1.7 [facility] Comment on above: Order Comment: Speci men Type: BLOOD SPECIMENOrdering Facility: [facility] Address: [address] [place] [address] Performed By: #### 2 4323-8, 3016-3, 302-7 ####[facility] LABCLIA [id number] [address] [address] [place] TSH SerPl-aCncon 04-26-2023 TSH Qn 1.310 m[IU]/L Normal 0.270-4.200 [facility] Comment on above: Order Comment: Speci men Type: BLOOD SPECIMENOrdering Facility: [facility] Address: [address] [place] [address] Performed By: #### 2 4323-8, 3016-3, 3024-7 ####[facility] LABCLIA [id number] [place] [id number] [place] CBC W Auto Differential pane l (Bld)on 03-12-2023 Basophils (Bld) [#/Vol] 0.05 10*3/uL Normal <0.11 [facility] Comment on above: Order Comment: Speci men Type: BLOOD SPECIMENOrdering Facility: [facility] Address: [address] [place] [address] Performed By: #### 5 7021-8 ####[facility] [id number] [place] [address] [place] Basophils/100 WBC (Bld) 0.7 % Normal [facility] Comment on above: Order Comment: Speci men Type: BLOOD SPECIMENOrdering Facility: [facility] Address: [address] [place] [address] Performed By: #### 5 7021-8 ####[facility] [id number] [place] [address] [place] Differential cell count method Nom (Bld) Auto Normal [facility] Comment on above: Order Comment: Speci men Type: BLOOD SPECIMENOrdering Facility: [facility] Address: [address] [place] [address] Performed By: #### 5 7021-8 ####[facility] SHAWLIA [id number] [place] [address] [place] Eosinophils (Bld) [#/Vol] 0.17 10*3/uL Normal <0.46 [facility] Comment on above: Order Comment: Speci men Type: BLOOD SPECIMENOrdering Facility: [facility] Address: [address] [place] [address] Performed By: #### 5 7021-8 ####[facility] [id number] [place] [address] [place] Eosinophils/100 WBC (Bld) 2.3 % Normal [facility] Comment on above: Order Comment: Speci men Type: BLOOD SPECIMENOrdering Facility: [facility] Address: [address] [place] [address] Performed By: #### 5 7021-8 ####[facility] [id number] [place] [address] [place] Erythrocyte distribution width (RBC) [Ratio] 22.3 % High 11.5-15.0 [facility] Comment on above: Order Comment: Speci men Type: BLOOD SPECIMENOrdering Facility: [facility] Address: [address] [place] [address] Performed By: #### 5 7021-8 ####[facility] [id number] [place] [address] [place] Hematocrit (Bld) [Volume fraction] 36.4 % Normal 36.0-46.0 [facility] Comment on above: Order Comment: Speci men Type: BLOOD SPECIMENOrdering Facility: [facility] Address: [address] [place] [address] Performed By: #### 5 7021-8 ####[facility] [id number] [place] [address] [place] Hemoglobin (Bld) [Mass/Vol] 10.4 g/dL Low 11.5-15.5 [facility] Comment on above: Order Comment: Speci men Type: BLOOD SPECIMENOrdering Facility: [facility] Address: [address] [place] [address] Performed By: #### 5 7021-8 ####[facility] MILLWNCLIA [id number] [place] [address] [place] Immature granulocytes (Bld) [#/Vol] 10*3/uL Normal <0.10 [facility] Comment on above: Order Comment: Speci men Type: BLOOD SPECIMENOrdering Facility: [facility] Address: [address] [place] [address] Performed By: #### 5 7021-8 ####[facility] MILLWNCLIA [id number] [place] [address] [place] Immature granulocytes/100 WBC (Bld) 0.1 % Normal [facility] Comment on above: Order Comment: Speci men Type: BLOOD SPECIMENOrdering Facility: [facility] Address: [address] [place] [address] Performed By: #### 5 7021-8 ####[facility] SHAWLIA [id number] [place] [address] [place] Lymphocytes (Bld) [#/Vol] 1.17 10*3/uL Normal 1.00-4.00 [facility] Comment on above: Order Comment: Speci men Type: BLOOD SPECIMENOrdering Facility: [facility] Address: [address] [place] [address] Performed By: #### 5 7021-8 ####[facility] MILLTOWNCLIA [id number] [place] [address] [place] Lymphocytes/100 WBC (Bld) 15.7 % Normal [facility] Comment on above: Order Comment: Speci men Type: BLOOD SPECIMENOrdering Facility: [facility] Address: [address] [place] [address] Performed By: #### 5 7021-8 ####[facility] [id number] [place] [address] [place] MCH (RBC) [Entitic mass] 22.7 pg Low 26.0-34.0 [facility] Comment on above: Order Comment: Speci men Type: BLOOD SPECIMENOrdering Facility: [facility] Address: [address] [place] [address] Performed By: #### 5 7021-8 ####[facility] [id number] [place] [address] [place] MCHC (RBC) [Mass/Vol] 28.6 g/dL Low 30.5-36.0 [facility] Comment on above: Order Comment: Speci men Type: BLOOD SPECIMENOrdering Facility: [facility] Address: [address] [place] [address] Performed By: #### 5 7021-8 ####[facility] [id number] [place] [address] [place] MCV (RBC) [Entitic vol] 79.5 fL Low 80.0-100.0 [facility] Comment on above: Order Comment: Speci men Type: BLOOD SPECIMENOrdering Facility: [facility] Address: [address] [place] [address] Performed By: #### 5 7021-8 ####[facility] [id number] [place] [address] [place] Monocytes (Bld) [#/Vol] 0.40 10*3/uL Normal <0.87 [facility] Comment on above: Order Comment: Speci men Type: BLOOD SPECIMENOrdering Facility: [facility] Address: [address] [place] [address] Performed By: #### 5 7021-8 ####[facility]ITAL[facility] [id number] [place] [address] [place] Monocytes/100 WBC (Bld) 5.4 % Normal [facility] Comment on above: Order Comment: Speci men Type: BLOOD SPECIMENOrdering Facility: [facility] Address: [address] [place] [address] Performed By: #### 5 7021-8 ####[facility] RODNEYBRYANTJESSYLIA [id number] [place] [address] [place] Neutrophils (Bld) [#/Vol] 5.65 10*3/uL Normal 1.45-7.50 [facility] Comment on above: Order Comment: Speci men Type: BLOOD SPECIMENOrdering Facility: [facility] Address: [address] [place] [address] Performed By: #### 5 7021-8 ####[facility] [id number] [place] [address] [place] Neutrophils/100 WBC (Bld) 75.8 % Normal [facility] Comment on above: Order Comment: Speci men Type: BLOOD SPECIMENOrdering Facility: [facility] Address: [address] [place] [address] Performed By: #### 5 7021-8 ####[facility] [id number] [place] [address] [place] Nucleated RBC (Bld) [#/Vol] 10*3/uL Normal <0.01 [facility] Comment on above: Order Comment: Speci men Type: BLOOD SPECIMENOrdering Facility: [facility] Address: [address] [place] [address] Performed By: #### 5 7021-8 ####[facility] [id number] [place] [address] [place] Nucleated RBC/100 WBC (Bld) [Ratio] 0.0 /100 WBC Normal [facility] Comment on above: Order Comment: Speci men Type: BLOOD SPECIMENOrdering Facility: [facility] Address: [address] [place] [address] Performed By: #### 5 7021-8 ####[facility] [id number] [place] [address] [place] Platelet mean volume (Bld) [Entitic vol] 10.2 fL Normal 9.0-12.7 [facility] Comment on above: Order Comment: Speci men Type: BLOOD SPECIMENOrdering Facility: [facility] Address: [address] [place] [address] Performed By: #### 5 7021-8 ####[facility] [id number] [place] [address] [place] Platelets (Bld) [#/Vol] 179 10*3/uL Normal 150-400 [facility] Comment on above: Order Comment: Speci men Type: BLOOD SPECIMENOrdering Facility: [facility] Address: [address] [place] [address] Result Comment: No c lot detected. Performed By: #### 5 7021-8 ####[facility] [id number] [place] [address] [place] RBC (Bld) [#/Vol] 4.58 10*6/uL Normal 3.90-5.20 [facility] Comment on above: Order Comment: Speci men Type: BLOOD SPECIMENOrdering Facility: [facility] Address: [address] [place] [address] Performed By: #### 5 7021-8 ####[facility] [id number] [place] [address] [place] WBC (Bld) [#/Vol] 7.45 10*3/uL Normal 3.70-11.00 [facility] Comment on above: Order Comment: Speci men Type: BLOOD SPECIMENOrdering Facility: [facility] Address: [address] [place] [address] Performed By: #### 5 7021-8 ####[facility] [id number] [place] [id number] [place] Ferritin SerPl-mCncon 2022 Ferritin [Mass/Vol] 103.0 ng/mL Normal 14.7-205.1 [facility] Comment on above: Order Comment: Speci men Type: BLOOD SPECIMENOrdering Facility: [facility] Address: [address] [place] [address] Performed By: #### 2 276-4, 52398-8 ####[facility] LABCLIA [id number] [place] [address] [place] Iron and Iron binding capaci ty panelon 03-12-2023 Iron [Mass/Vol] 31 ug/dL Low 41-186 [facility] Comment on above: Order Comment: Speci men Type: BLOOD SPECIMENOrdering Facility: [facility] Address: [address] [place] [address] Performed By: #### 2 276-4, 89817-8 ####[facility] LABCLIA [id number] [place] [address] [place] Iron binding capacity [Mass/Vol] 317 ug/dL Normal 232-386 [facility] Comment on above: Order Comment: Speci men Type: BLOOD SPECIMENOrdering Facility: [facility] Address: [address] [place] [address] Performed By: #### 2 276-4, 17741-9 ####[facility] LABCLIA [id number] [place] [address] [place] Iron/TIBC [Molar ratio] 9.8 % Low 15.0-57.0 [facility] Comment on above: Order Comment: Speci men Type: BLOOD SPECIMENOrdering Facility: [facility] Address: [address] [place] [address] Performed By: #### 2 276-4, 60127-8 ####[facility] LABCLIA [id number] [place] [id number] [place] CNPNon 02-04-2023 CNPN Telephone (HEMAWS) AINSLEY SORENSON ([id number]) 1935 F Date Time Provider Department 02/04/23 SARAH THORNE During your visit today, we recorded the following information about you: Sarah Thorne LISW 02/04/2023 2:12 PM Signed Pt noted on [facility] 1st time treatment report. Pt has [...] Status:Closed by SARAH THORNE on 02/04/23 Normal [facility] CNOVSPon 01-25-2023 CNOVSP Visit (SP) Office (HEMAWS) AINSLEY SORENSON ([id number]) 1935 F Date Time Provider Department 01/25/23 [...] which included preparing to see the patient, [id number] patient care, completing clinical documentation, obtaining and/or reviewing separately obtained history, counseling and educating the patient/family/caregiv er, ordering medications, tests, or procedures, communicating with other HCPs (not separately reported), and communicating results to the patient/family/caregiv er. Electronically Signed: Stu Schaeffer MD January 25, 2023 1:08 PM Referring Provider: ZORAN DUMONT [[id number]] Allergies As of Date: 01/25/2023 Noted Allergy Reaction AUGMENTIN (AMOXICILLIN-POT CLAVUL*11/11/2012 6 - Diarrhea CIPROFLOXACIN 07/18/2010 2 - Rash LEVAQUIN (LEVOFLOXACIN) 04/24/2013 2 - Rash Comments: itching rash Date Reviewed: 01/25/2023 Reviewed by: Angel Bailey RN - Fully Assessed Reason for Visit: New Patient Evaluation [154] Visit Diagnosis:Iron deficiency anemia, unspecified iron deficiency anemia type [D50.9] Order(s):CONSULT TO HEMATOLOGY [9014] Order #: [id number]: 1 CBC + DIFF [SQCBCDIF] Order #: [id number] STANDING FERRITIN BLD [SQFERR] Order #: [id number] STANDING IRON + TIBC [SQIRON] Order #: [id number] STANDING Follow-up and Disposition History for Encounter Date Provider Department (more content not included)... Normal [facility] CNPNon 01-06-2023 CNPN Telephone (MINNIE) AINSLEY SORENSON ([id number]) 1935 F Date Time Provider Department 01/06/23 STU SCHAEFFER During your visit today, we recorded the following information about you: Ximena Odonnell 01/06/2023 1:25 PM Signed Please review and advise. CONSULT TO HEMATOLOGY Status: Needs Scheduling Requested appt date: Authorizing: Zoran Dumont PA-C in [facility] Referral: [id number] (Authorized) Expires: 01/04/2024 Priority: Routine Diagnosis: Iron [...] Status:Closed by JOHANNA CARLSON on 01/06/23 Normal [facility] FERRITIN BLDon 01-05-2023 Ferritin [Mass/Vol] 58.2 ng/mL 14.7 - 2 05.1 ng/mL [facility] Iron and Iron binding capaci ty panelon 01-05-2023 Iron [Mass/Vol] 20 ug/dL Low 41 - 186 ug/dL [facility] Iron binding capacity [Mass/Vol] 466 ug/dL High 232 - 386 ug/dL [facility] Iron/TIBC [Molar ratio] 4.3 % Low 15.0 - 57.0 % [facility] CBC W Auto Differential pane l (Bld)on 01-04-2023 Basophils (Bld) [#/Vol] 0.09 10*3/uL <0.11 k/uL [facility] Basophils/100 WBC (Bld) 1.1 % [facility] Differential cell count method Nom (Bld) Auto [facility] Eosinophils (Bld) [#/Vol] 0.09 10*3/uL <0.46 k/uL [facility] Eosinophils/100 WBC (Bld) 1.1 % [facility] Erythrocyte distribution width (RBC) [Ratio] 21.9 % High 11.5 - 15.0 % [facility] Hematocrit (Bld) [Volume fraction] 36.5 % 36.0 - 46.0 % [facility] Hemoglobin (Bld) [Mass/Vol] 9.9 g/dL Low 11.5 - 15.5 g/dL [facility] Immature granulocytes (Bld) [#/Vol] 0.04 10*3/uL <0.10 k/uL [facility] Immature granulocytes/100 WBC (Bld) 0.5 % [facility] Lymphocytes (Bld) [#/Vol] 1.48 10*3/uL 1.00 - 4.00 k/uL [facility] Lymphocytes/100 WBC (Bld) 17.4 % [facility] MCH (RBC) [Entitic mass] 21.3 pg Low 26.0 - 34.0 pg [facility] MCHC (RBC) [Mass/Vol] 27.1 g/dL Low 30.5 - 36.0 g/dL [facility] MCV (RBC) [Entitic vol] 78.5 fL Low 80.0 - 100.0 fL [facility] Monocytes (Bld) [#/Vol] 0.55 10*3/uL <0.87 k/uL [facility] Monocytes/100 WBC (Bld) 6.4 % [facility] Neutrophils (Bld) [#/Vol] 6.28 10*3/uL 1.45 - 7.50 k/uL [facility] Neutrophils/100 WBC (Bld) 73.5 % [facility] Nucleated RBC (Bld) [#/Vol] <0.01 k/uL [facility] Nucleated RBC/100 WBC (Bld) [Ratio] 0.0 /100 WBC [facility] Platelet mean volume (Bld) [Entitic vol] [facility] Platelets (Bld) [#/Vol] 211 10*3/uL 150 - 400 k/uL [facility] RBC (Bld) [#/Vol] 4.65 10*6/uL 3.90 - 5.2 0 m/uL [facility] WBC (Bld) [#/Vol] 8.53 10*3/uL 3.70 - 11. 00 k/uL [facility] Basophils (Bld) [#/Vol] 0.09 10*3/uL Normal <0.11 [facility] Comment on above: Order Comment: Speci men Type: BLOOD SPECIMENOrdering Facility: [facility] Address: [address] [place] [address] Performed By: #### 5 7021-8 ####[facility] LABCLIA [id number] [place] [address] [place] Basophils/100 WBC (Bld) 1.1 % Normal [facility] Comment on above: Order Comment: Speci men Type: BLOOD SPECIMENOrdering Facility: [facility] Address: [address] [place] [address] Performed By: #### 5 7021-8 ####[facility] LABCLIA [id number] [place] [address] [place] Differential cell count method Nom (Bld) Auto Normal [facility] Comment on above: Order Comment: Speci men Type: BLOOD SPECIMENOrdering Facility: [facility] Address: [address] [place] [address] Performed By: #### 5 7021-8 ####[facility] LABCLIA [id number] [place] [address] [place] Eosinophils (Bld) [#/Vol] 0.09 10*3/uL Normal <0.46 [facility] Comment on above: Order Comment: Speci men Type: BLOOD SPECIMENOrdering Facility: [facility] Address: [address] [place] [address] Performed By: #### 5 7021-8 ####[facility] LABCLIA [id number] [place] [address] [place] Eosinophils/100 WBC (Bld) 1.1 % Normal [facility] Comment on above: Order Comment: Speci men Type: BLOOD SPECIMENOrdering Facility: [facility] Address: [address] [place] [address] Performed By: #### 5 7021-8 ####[facility] LABCLIA [id number] [place] [address] [place] Erythrocyte distribution width (RBC) [Ratio] 21.9 % High 11.5-15.0 [facility] Comment on above: Order Comment: Speci men Type: BLOOD SPECIMENOrdering Facility: [facility] Address: [address] [place] [address] Performed By: #### 5 7021-8 ####[facility] LABCLIA [id number] [place] [address] [place] Hematocrit (Bld) [Volume fraction] 36.5 % Normal 36.0-46.0 [facility] Comment on above: Order Comment: Speci men Type: BLOOD SPECIMENOrdering Facility: [facility] Address: [address] [place] [address] Performed By: #### 5 7021-8 ####[facility] LABCLIA [id number] [place] [address] [place] Hemoglobin (Bld) [Mass/Vol] 9.9 g/dL Low 11.5-15.5 [facility] Comment on above: Order Comment: Speci men Type: BLOOD SPECIMENOrdering Facility: [facility] Address: [address] [place] [address] Performed By: #### 5 7021-8 ####[facility] LABIA [id number] [place] [address] [place] Immature granulocytes (Bld) [#/Vol] 0.04 10*3/uL Normal <0.10 [facility] Comment on above: Order Comment: Speci men Type: BLOOD SPECIMENOrdering Facility: [facility] Address: [address] [place] [address] Performed By: #### 5 7021-8 ####[facility] LABCLIA [id number] [place] [address] [place] Immature granulocytes/100 WBC (Bld) 0.5 % Normal [facility] Comment on above: Order Comment: Speci men Type: BLOOD SPECIMENOrdering Facility: [facility] Address: [address] [place] [address] Performed By: #### 5 7021-8 ####[facility] LABCLIA [id number] [place] [address] [place] Lymphocytes (Bld) [#/Vol] 1.48 10*3/uL Normal 1.00-4.00 [facility] Comment on above: Order Comment: Speci men Type: BLOOD SPECIMENOrdering Facility: [facility] Address: [address] [place] [address] Performed By: #### 5 7021-8 ####[facility] [facility] [id number] [place] [address] [place] Lymphocytes/100 WBC (Bld) 17.4 % Normal [facility] Comment on above: Order Comment: Speci men Type: BLOOD SPECIMENOrdering Facility: [facility] Address: [address] [place] [address] Performed By: #### 5 7021-8 ####[facility] LABIA [id number] [place] [address] [place] MCH (RBC) [Entitic mass] 21.3 pg Low 26.0-34.0 [facility] Comment on above: Order Comment: Speci men Type: BLOOD SPECIMENOrdering Facility: [facility] Address: [address] [place] [address] Performed By: #### 5 7021-8 ####[facility] LABIA [id number] [place] [address] [place] MCHC (RBC) [Mass/Vol] 27.1 g/dL Low 30.5-36.0 [facility] Comment on above: Order Comment: Speci men Type: BLOOD SPECIMENOrdering Facility: [facility] Address: [address] [place] [address] Performed By: #### 5 7021-8 ####[facility] LABIA [id number] [place] [address] [place] MCV (RBC) [Entitic vol] 78.5 fL Low 80.0-100.0 [facility] Comment on above: Order Comment: Speci men Type: BLOOD SPECIMENOrdering Facility: [facility] Address: [address] [place] [address] Performed By: #### 5 7021-8 ####[facility] LABCLIA [id number] [place] [address] [place] Monocytes (Bld) [#/Vol] 0.55 10*3/uL Normal <0.87 [facility] Comment on above: Order Comment: Speci men Type: BLOOD SPECIMENOrdering Facility: [facility] Address: [address] [place] [address] Performed By: #### 5 7021-8 ####[facility] LABCLIA [id number] [place] [address] [place] Monocytes/100 WBC (Bld) 6.4 % Normal [facility] Comment on above: Order Comment: Speci men Type: BLOOD SPECIMENOrdering Facility: [facility] Address: [address] [place] [address] Performed By: #### 5 7021-8 ####[facility] LABCLIA [id number] [place] [address] [place] Neutrophils (Bld) [#/Vol] 6.28 10*3/uL Normal 1.45-7.50 [facility] Comment on above: Order Comment: Speci men Type: BLOOD SPECIMENOrdering Facility: [facility] Address: [address] [place] [address] Performed By: #### 5 7021-8 ####[facility] LABCLIA [id number] [place] [address] [place] Neutrophils/100 WBC (Bld) 73.5 % Normal [facility] Comment on above: Order Comment: Speci men Type: BLOOD SPECIMENOrdering Facility: [facility] Address: [address] [place] [address] Performed By: #### 5 7021-8 ####[facility] LABCLIA [id number] [place] [address] [place] Nucleated RBC (Bld) [#/Vol] 10*3/uL Normal <0.01 [facility] Comment on above: Order Comment: Speci men Type: BLOOD SPECIMENOrdering Facility: [facility] Address: [address] [place] [address] Performed By: #### 5 7021-8 ####[facility] LABCLIA [id number] [place] [address] [place] Nucleated RBC/100 WBC (Bld) [Ratio] 0.0 /100 WBC Normal [facility] Comment on above: Order Comment: Speci men Type: BLOOD SPECIMENOrdering Facility: [facility] Address: [address] [place] [address] Performed By: #### 5 7021-8 ####[facility] LABIA [id number] [place] [address] [place] Platelet mean volume (Bld) [Entitic vol] Normal [facility] Comment on above: Order Comment: Speci men Type: BLOOD SPECIMENOrdering Facility: [facility] Address: [address] [place] [address] Result Comment: Unab le to Report. Performed By: #### 5 7021-8 ####[facility] LABIA [id number] [place] [address] [place] Platelets (Bld) [#/Vol] 211 10*3/uL Normal 150-400 [facility] Comment on above: Order Comment: Speci men Type: BLOOD SPECIMENOrdering Facility: [facility] Address: [address] [place] [address] Result Comment: Resu lts checked and verified.No clot detected. Performed By: #### 5 7021-8 ####[facility] LABCLIA [id number] [place] [address] [place] RBC (Bld) [#/Vol] 4.65 10*6/uL Normal 3.90-5.20 [facility] Comment on above: Order Comment: Speci men Type: BLOOD SPECIMENOrdering Facility: [facility] Address: [place] [address] Performed By: #### 5 7021-8 ####[facility] LABIA [id number] [place] [address] [place] WBC (Bld) [#/Vol] 8.53 10*3/uL Normal 3.70-11.00 [facility] Comment on above: Order Comment: Speci men Type: BLOOD SPECIMENOrdering Facility: [facility] Address: [place] [address] Performed By: #### 5 7021-8 ####[facility] LABCLIA [id number] [place] [address] [place] CNOVon 01-04-2023 CNOV Office Visit (INTMWS ) AINSLEY SORENSON ([id number]) 1935 F Date Time Provider Department 01/04/23 [...] her appts, has to drive in from [place] and states it's a lot every time [...] focal neurologic (more content not included)... Normal [facility] Angelo 01-04-2023 [facility] Telephone (FAMPWS) AINSLEY SORENSON ([id number]) 1935 F Date Time Provider Department 01/04/23 [...] appt date: Authorizing: Zoran Dumont PA-C in [facility] Referral: [id number] (Authorized) Expires: 01/04/2024 Priority: Routine Diagnosis: Iron deficiency anemia, unspecified iron deficiency anemia type [D50.9] Comments Alexandra Michel RN 01/04/2023 4:31 PM Signed OK to schedule with first available. KEYONNA Bull Stephanie 01/05/2023 8:52 AM Signed LM for a return call. When she calls, please schedule first available [employer] re: anemia that works for the patient. [...] Status:Closed by MARYJANE VINES on 01/07/23 Normal [facility] Ferritin SerPl-mCncon 2022 Ferritin [Mass/Vol] 58.2 ng/mL Normal 14.7-205.1 [facility] Comment on above: Order Comment: Speci men Type: BLOOD SPECIMENOrdering Facility: [facility] Address: [address] [place] [address] Performed By: #### 5 0190-8, 6-4 ####[facility] LABCLIA [id number] [place] [address] [place] Iron and Iron binding capaci ty panelon 01-04-2023 Iron [Mass/Vol] 20 ug/dL Low 41-186 [facility] Comment on above: Order Comment: Speci men Type: BLOOD SPECIMENOrdering Facility: [facility] Address: [address] [place] [address] Performed By: #### 5 0190-8, 2275-4 ####[facility] LABCLIA [id number] [place] [address] [place] Iron binding capacity [Mass/Vol] 466 ug/dL High 232-386 [facility] Comment on above: Order Comment: Speci men Type: BLOOD SPECIMENOrdering Facility: [facility] Address: [address] [place] [address] Performed By: #### 5 0190-8, 2275-06 ####[facility] LABCLIA [id number] [place] [address] [place] Iron/TIBC [Molar ratio] 4.3 % Low 15.0-57.0 [facility] Comment on above: Order Comment: Speci men Type: BLOOD SPECIMENOrdering Facility: [facility] Address: [address] [place] [address] Performed By: #### 5 0190-8, 2275- ####[facility] LABCLIA [id number] [place] [address] [place] CBC W Auto Differential pane l (Bld)on 11-13-2022 Basophils (Bld) [#/Vol] 0.05 10*3/uL <0.11 k/uL [facility] Basophils/100 WBC (Bld) 0.5 % [facility] Differential cell count method Nom (Bld) Auto [facility] Eosinophils (Bld) [#/Vol] <0.46 k/uL [facility] Eosinophils/100 WBC (Bld) 0.1 % [facility] Erythrocyte distribution width (RBC) [Ratio] 24.2 % High 11.5 - 15.0 % [facility] Hematocrit (Bld) [Volume fraction] 31.8 % Low 36.0 - 46.0 % [facility] Hemoglobin (Bld) [Mass/Vol] 9.0 g/dL Low 11.5 - 15.5 g/dL [facility] Immature granulocytes (Bld) [#/Vol] 0.05 10*3/uL <0.10 k/uL [facility] Immature granulocytes/100 WBC (Bld) 0.5 % [facility] Lymphocytes (Bld) [#/Vol] 0.81 10*3/uL Low 1.00 - 4.00 k/uL [facility] Lymphocytes/100 WBC (Bld) 7.9 % [facility] MCH (RBC) [Entitic mass] 19.7 pg Low 26.0 - 34.0 pg [facility] MCHC (RBC) [Mass/Vol] 28.3 g/dL Low 30.5 - 36.0 g/dL [facility] MCV (RBC) [Entitic vol] 69.6 fL Low 80.0 - 100.0 fL [facility] Monocytes (Bld) [#/Vol] 0.88 10*3/uL High <0.87 k/uL [facility] Monocytes/100 WBC (Bld) 8.6 % [facility] Neutrophils (Bld) [#/Vol] 8.40 10*3/uL High 1.45 - 7.50 k/uL [facility] Neutrophils/100 WBC (Bld) 82.4 % [facility] Nucleated RBC (Bld) [#/Vol] <0.01 k/uL [facility] Nucleated RBC/100 WBC (Bld) [Ratio] 0.0 /100 WBC [facility] Platelet mean volume (Bld) [Entitic vol] [facility] Platelets (Bld) [#/Vol] 172 10*3/uL 150 - 400 k/uL [facility] RBC (Bld) [#/Vol] 4.57 10*6/uL 3.90 - 5.2 0 m/uL [facility] WBC (Bld) [#/Vol] 10.20 10*3/uL 3.70 - 11 .00 k/uL [facility] XR Radius and Ulna - right A P and Lateralon 05-16-2021 IMPRESSION: No acute fractures demonstrated in the right radius or right ulna. There is mild soft tissue prominence in the mid forearm. 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 Trans[facility] Date/Time: May 16 2021 1:42P Dictated by : MEHREEN AYERS MD This examination was interpreted and the report reviewed and electronically signed by: MEHREEN AYERS MD on May 16 2021 1:45PM [facility] DIVISION OF RADIOLOGY * * *Final Report* [...] presented. FINDINGS AND DIVISION OF RADIOLOGY Provider, [facility] - 05/16/2021 * * *Final [...] soft tissue prominence in the mid forearm. 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: [employer] Transcribe Date/Time: May 16 2021 1:42P Dictated by : MEHREEN AYERS MD This examination was interpreted and the report reviewed and electronically signed by: MEHREEN AYERS MD on May 16 2021 1:45PM EST [facility] Radiology Study observation (narrative) [facility] XR Radius and Ulna - right A P and LateralOrdered By: [facility] Provider on 05-16-2021 [facility] Vital Signs Date Time Vital Sign Value Performing Clinician Faci lity 12-10-2023 13:59-0400 Body mass index (BMI) [Ratio] 17.35 kg/m2 Shonda Older NET TRAINER.SURGERY ASSISTANT Work Phone: [facility] 12-10-2023 13:59-0400 Body weight 47.3 kg Shonda Older NET TRAINER.SURGERY ASSISTANT Work Phone: [facility] 12-10-2023 13:59-0400 Diastolic blood pressure 74 mm[Hg] Shonda Older NET TRAINER.SURGERY ASSISTANT Work Phone: [facility] 12-10-2023 13:59-0400 Heart rate 68 /min Shonda Older NET TRAINER.SURGERY ASSISTANT Work Phone: [facility] 12-10-2023 13:59-0400 SaO2% (BldA) [Mass fraction] 100 % Shonda Older NET TRAINER.SURGERY ASSISTANT Work Phone: [facility] 12-10-2023 13:59-0400 Systolic blood pressure 128 mm[Hg] Shonda Older NET TRAINER.SURGERY ASSISTANT Work Phone: [facility] 08-13-2023 13:31-0400 Body mass index (BMI) [Ratio] 18.6 kg/m2 Shonda Older NET TRAINER.SURGERY ASSISTANT Work Phone: [facility] 08-13-2023 13:31-0400 Body weight 50.71 kg Shonda Older NET TRAINER.SURGERY ASSISTANT Work Phone: [facility] 08-13-2023 13:31-0400 Diastolic blood pressure 66 mm[Hg] Shonda Older NET TRAINER.SURGERY ASSISTANT Work Phone: [facility] 08-13-2023 13:31-0400 Heart rate 85 /min Shonda Older NET TRAINER.SURGERY ASSISTANT Work Phone: [facility] 08-13-2023 13:31-0400 SaO2% (BldA) [Mass fraction] 96 % Shonda Older NET TRAINER.SURGERY ASSISTANT Work Phone: [facility] 08-13-2023 13:31-0400 Systolic blood pressure 122 mm[Hg] Shonda Older NET TRAINER.SURGERY ASSISTANT Work Phone: [facility] 04-26-2023 13:13-0500 Body weight 48.99 kg Shonda Older NET TRAINER.SURGERY ASSISTANT Work Phone: [facility] 04-26-2023 13:13-0500 Diastolic blood pressure 70 mm[Hg] Shonda Older NET TRAINER.SURGERY ASSISTANT Work Phone: [facility] 04-26-2023 13:13-0500 Heart rate 72 /min Shonda Older NET TRAINER.SURGERY ASSISTANT Work Phone: [facility] 04-26-2023 13:13-0500 Respiratory rate 16 /min Shonda Older NET TRAINER.SURGERY ASSISTANT Work Phone: [facility] 04-26-2023 13:13-0500 Systolic blood pressure 128 mm[Hg] Shonda Older NET TRAINER.SURGERY ASSISTANT Work Phone: [facility] 02-26-2023 13:00-0500 Body temperature 97.59 [degF] Treatment Wstr Work Phone: [facility] 02-26-2023 13:00-0500 Diastolic blood pressure 70 mm[Hg] Treatment Wstr Work Phone: [facility] 02-26-2023 13:00-0500 Heart rate 81 /min Treatment Wstr Work Phone: [facility] 02-26-2023 13:00-0500 Systolic blood pressure 137 mm[Hg] Treatment Wstr Work Phone: [facility] 02-05-2023 13:33-0500 Body temperature 97.39 [degF] Treatment Wstr Work Phone: [facility] 02-05-2023 13:33-0500 Diastolic blood pressure 81 mm[Hg] Treatment Wstr Work Phone: [facility] 02-05-2023 13:33-0500 Heart rate 85 /min Treatment Wstr Work Phone: [facility] 02-05-2023 13:33-0500 Respiratory rate 18 /min Treatment Wstr Work Phone: [facility] 02-05-2023 13:33-0500 SaO2% (BldA) [Mass fraction] 97 % Treatment Wstr Work Phone: [facility] 02-05-2023 13:33-0500 Systolic blood pressure 118 mm[Hg] Treatment Wstr Work Phone: [facility] 01-25-2023 12:52-0500 Body height 165.1 cm Stu Schaeffer MD Work Phone: [facility] 01-25-2023 12:52-0500 Body temperature 97.9 [degF] Stu Schaeffer MD Work Phone: [facility] 01-25-2023 12:52-0500 Body weight 49.44 kg Stu Schaeffer MD Work Phone: [facility] 01-25-2023 12:52-0500 Diastolic blood pressure 74 mm[Hg] Stu Schaeffer MD Work Phone: [facility] 01-25-2023 12:52-0500 Heart rate 67 /min Stu Schaeffer MD Work Phone: [facility] 01-25-2023 12:52-0500 SaO2% (BldA) [Mass fraction] 99 % Stu Schaeffer MD Work Phone: [facility] 01-25-2023 12:52-0500 Systolic blood pressure 165 mm[Hg] Stu Schaeffer MD Work Phone: [facility] 01-04-2023 12:16-0400 Body height 167.6 cm Zoran Dumont PA-C Work Phone: [facility] 01-04-2023 12:16-0400 Body temperature 97.2 [degF] Zoran Denbow PA-C Work Phone: [facility] 01-04-2023 12:16-0400 Body weight 46.27 kg Zoran Denbow PA-C Work Phone: [facility] 01-04-2023 12:16-0400 Diastolic blood pressure 52 mm[Hg] Zoran Denbow PA-C Work Phone: [facility] 01-04-2023 12:16-0400 Heart rate 80 /min Zoran Denbow PA-C Work Phone: [facility] 01-04-2023 12:16-0400 Respiratory rate 12 /min Zoran Denbow PA-C Work Phone: [facility] 01-04-2023 12:16-0400 SaO2% (BldA) [Mass fraction] 100 % Zoran Denbow PA-C Work Phone: [facility] 01-04-2023 12:16-0400 Systolic blood pressure 102 mm[Hg] Zoran Denbow PA-C Work Phone: [facility] 11-13-2022 12:52-0400 Body height 167.6 cm Zoran Denbow PA-C Work Phone: [facility] 11-13-2022 12:52-0400 Body temperature 98.01 [degF] Zoran Denbow PA-C Work Phone: [facility] 11-13-2022 12:52-0400 Body weight 44.91 kg Zoran Denbow PA-C Work Phone: [facility] 11-13-2022 12:52-0400 Diastolic blood pressure 70 mm[Hg] Zoran Denbow PA-C Work Phone: [facility] 11-13-2022 12:52-0400 Heart rate 84 /min Zoran Denbow PA-C Work Phone: [facility] 11-13-2022 12:52-0400 Respiratory rate 12 /min Zoran Denbow PA-C Work Phone: [facility] 11-13-2022 12:52-0400 SaO2% (BldA) [Mass fraction] 98 % Zoran VALENTE-Immanuel Work Phone: [facility] 11-13-2022 12:52-0400 Systolic blood pressure 140 mm[Hg] Zoran Dumont PA-C Work Phone: [facility] 08-21-2022 14:20-0400 Body temperature 98.8 [degF] Shonda Older NET TRAINER.SURGERY ASSISTANT Work Phone: [facility] 08-21-2022 14:20-0400 Body weight 45.36 kg Shonda Older NET TRAINER.SURGERY ASSISTANT Work Phone: [facility] 08-21-2022 14:20-0400 Diastolic blood pressure 52 mm[Hg] Shonda Older NET TRAINER.SURGERY ASSISTANT Work Phone: [facility] 08-21-2022 14:20-0400 Heart rate 72 /min Shonda Older NET TRAINER.SURGERY ASSISTANT Work Phone: [facility] 08-21-2022 14:20-0400 Respiratory rate 16 /min Shonda Older NET TRAINER.SURGERY ASSISTANT Work Phone: [facility] 08-21-2022 14:20-0400 SaO2% (BldA) [Mass fraction] 99 % Shonda Older NET TRAINER.SURGERY ASSISTANT Work Phone: [facility] 08-21-2022 14:20-0400 Systolic blood pressure 132 mm[Hg] Shonda Older NET TRAINER.SURGERY ASSISTANT Work Phone: [facility] 05-29-2022 16:22-0500 Body height 167.6 cm Ming Mcknight MD Work Phone: [facility] 05-29-2022 16:22-0500 Body temperature 97.39 [degF] Ming Mcknight MD Work Phone: [facility] 05-29-2022 16:22-0500 Body weight 46.72 kg Ming Mcknight MD Work Phone: [facility] 05-29-2022 16:22-0500 Diastolic blood pressure 42 mm[Hg] Ming Mcknight MD Work Phone: [facility] 05-29-2022 16:22-0500 Heart rate 83 /min Ming Mcknight MD Work Phone: [facility] 05-29-2022 16:22-0500 Respiratory rate 12 /min Ming Mcknight MD Work Phone: [facility] 05-29-2022 16:22-0500 SaO2% (BldA) [Mass fraction] 99 % Ming Mcknight MD Work Phone: [facility] 05-29-2022 16:22-0500 Systolic blood pressure 98 mm[Hg] Ming Mcknight MD Work Phone: [facility] 01-30-2022 10:54-0500 Body weight 45.36 kg Mindy Mancia MD Work Phone: [facility] 01-30-2022 10:54-0500 Diastolic blood pressure 56 mm[Hg] Mindy Mancia MD Work Phone: [facility] 01-30-2022 10:54-0500 Systolic blood pressure 94 mm[Hg] Mindy Mancia MD Work Phone: [facility] 01-23-2022 14:24-0400 Body weight 45.81 kg Shonda Older NET TRAINER.SURGERY ASSISTANT Work Phone: [facility] 01-23-2022 14:24-0400 Diastolic blood pressure 68 mm[Hg] Shonda Older NET TRAINER.SURGERY ASSISTANT Work Phone: [facility] 01-23-2022 14:24-0400 Heart rate 64 /min Shonda Older NET TRAINER.SURGERY ASSISTANT Work Phone: [facility] 01-23-2022 14:24-0400 Respiratory rate 16 /min Shonda Older NET TRAINER.SURGERY ASSISTANT Work Phone: [facility] 01-23-2022 14:24-0400 Systolic blood pressure 118 mm[Hg] Shonda Older NET TRAINER.SURGERY ASSISTANT Work Phone: [facility] 11-28-2021 16:10-0400 Body height 167.6 cm Ming Mcknight MD Work Phone: [facility] 11-28-2021 16:10-0400 Body temperature 98.71 [degF] Ming Mcknight MD Work Phone: [facility] 11-28-2021 16:10-0400 Body weight 47.17 kg Ming Mcknight MD Work Phone: [facility] 11-28-2021 16:10-0400 Diastolic blood pressure 70 mm[Hg] Ming Mcknight MD Work Phone: [facility] 11-28-2021 16:10-0400 Heart rate 74 /min Ming Mcknight MD Work Phone: [facility] 11-28-2021 16:10-0400 Respiratory rate 12 /min Ming Mcknight MD Work Phone: [facility] 11-28-2021 16:10-0400 SaO2% (BldA) [Mass fraction] 96 % Ming Mcknight MD Work Phone: [facility] 11-28-2021 16:10-0400 Systolic blood pressure 120 mm[Hg] Ming Mcknight MD Work Phone: [facility] 11-26-2021 18:01-0400 Body temperature 97.39 [degF] Neela Athy PA-C Work Phone: [facility] 11-26-2021 18:01-0400 Body weight 48.08 kg Neela Athy PA-C Work Phone: [facility] 11-26-2021 18:01-0400 Diastolic blood pressure 90 mm[Hg] Neela Athy PA-C Work Phone: [facility] 11-26-2021 18:01-0400 Heart rate 82 /min Neela Athy PA-C Work Phone: [facility] 11-26-2021 18:01-0400 Respiratory rate 21 /min Neela Athy PA-C Work Phone: [facility] 11-26-2021 18:01-0400 SaO2% (BldA) [Mass fraction] 98 % Neela Oneill PA-C Work Phone: [facility] 11-26-2021 18:01-0400 Systolic blood pressure 180 mm[Hg] Neela Oneill PA-C Work Phone: [facility] 07-25-2021 15:37-0400 Body weight 43.55 kg Mindy Mancia MD Work Phone: [facility] 07-25-2021 15:37-0400 Diastolic blood pressure 62 mm[Hg] Mindy Mancia MD Work Phone: [facility] 07-25-2021 15:37-0400 Systolic blood pressure 110 mm[Hg] Mindy Mancia MD Work Phone: [facility] Encounters Encounter Date Encounter Type Care Provider Facility Start: 12-24-2023 End: 12-24-2023 Telephone encounter Ming Mcknight MD Work Phone: [facility] Comment on above: Results Start: 12-17-2023 End: 12-17-2023 ambulatory MING MCKNIGHT Facility:[facility] Start: 12-14-2023 End: 12-14-2023 Telephone encounter Ming Mcknight MD Work Phone: [facility] Comment on above: Patient Update Start: 12-13-2023 End: 12-13-2023 Telephone encounter Shonda Tyler APRN.SURGERY ASSISTANT Work Phone: [facility] Comment on above: Results Start: 12-10-2023 End: 12-10-2023 ambulatory SHONDA TYLER Facility:[facility] Start: 12-10-2023 End: 12-10-2023 Patient encounter procedure Shonda Tyler APRN.SURGERY ASSISTANT Work Phone: [facility] Comment on above: Unsteady gait (Prima ry Dx); Tremor of both hands; 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 Comment on above: Results Start: 09-22-2023 Telephone encounter Shonda Older NET TRAINER.SURGERY ASSISTANT Work Phone: [facility] Start: 09-21-2023 End: 09-21-2023 [facility] Facility:[facility] Start: 08-18-2023 Telephone encounter Shonda Older NET TRAINER.SURGERY ASSISTANT Work Phone: [facility] Comment on above: Results Start: 08-13-2023 End: 08-13-2023 Patient encounter procedure Shonda Older NET TRAINER.SURGERY ASSISTANT Work Phone: [facility] Comment on above: Recent urinary tract infection (Primary Dx); Leukocytes in urine; 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); Diarrhea, unspecified type Refill Request Start: 08-13-2023 End: 08-13-2023 [facility] Facility:[facility] Start: 06-09-2023 Refill Shonda Older NET TRAINER .SURGERY ASSISTANT Work Phone: [facility] Comment on above: Refill Request Start: 04-29-2023 Telephone encounter Shonda Older NET TRAINER.SURGERY ASSISTANT Work Phone: [facility] Comment on above: Results Start: 04-26-2023 End: 04-26-2023 [facility] Facility:[facility] Start: 04-26-2023 End: 04-26-2023 Patient encounter procedure Shonda Older NET TRAINER.SURGERY ASSISTANT Work Phone: [facility] Comment on above: Late onset Alzheimer '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) (Primary Dx); Memory change; Hypothyroidism, unspecified type; Major depressive disorder with single episode, in full remission (HCC); Chronic anxiety; Stage 3a chronic kidney disease (HCC); Diarrhea, unspecified type Start: 03-12-2023 End: 03-12-2023 ambulatory STU SCHAEFFER Facility:[facility] Start: 02-26-2023 End: 02-26-2023 ambulatory Treatment Rm 13 [facility] Work Phone: Hematology/Oncology Comment on above: Other iron deficienc y anemia (Primary Dx); Iron deficiency anemia, unspecified iron deficiency anemia type Start: 02-19-2023 End: 02-19-2023 ambulatory STU SCHAEFFER Facility:[facility] Start: 02-05-2023 End: 02-05-2023 ambulatory Treatment Rm 13 [facility] Work Phone: Hematology/Oncology Comment on above: Iron deficiency anem ia, unspecified iron deficiency anemia type (Primary Dx) Start: 02-04-2023 Telephone encounter Sarah VALDOVINOS Hematology/Oncology Comment on above: 1st Time Treatment ( Non-Oncology) Start: 01-25-2023 End: 01-25-2023 Patient encounter procedure Stu Schaeffer MD Work Phone: [facility] Start: 01-25-2023 End: 01-25-2023 ambulatory Treatment Rm 10 [facility] Work Phone: Hematology/Oncology Comment on above: Iron deficiency anem ia, unspecified iron deficiency anemia type (Primary Dx) Iron deficiency anem ia, unspecified iron deficiency anemia type Start: 01-04-2023 Telephone encounter Ming hahn MD Work Phone: [facility] [place] Comment on above: Orders Start: 01-04-2023 End: 01-04-2023 ambulatory ZORAN DUMONT Facility:[facility] Start: 01-04-2023 End: 01-04-2023 ambulatory ZORAN DUMONT Facility:[facility] Start: 01-04-2023 End: 01-04-2023 Patient encounter procedure Zoran Dumont PA-C Work Phone: [facility] [place] Comment on above: Iron deficiency anem ia, unspecified iron deficiency anemia type (Primary Dx); 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); Gout with manifestations; Need for influenza vaccination Start: 11-17-2022 Telephone encounter Ming hahn MD Work Phone: [facility] [place] Comment on above: Results Start: 11-13-2022 End: 11-13-2022 Patient encounter procedure Zoran Dumont PA-C Work Phone: [facility] [place] Comment on above: Microcytic anemia (P rimary Dx); History of recent blood transfusion; Acute confusion Start: 11-10-2022 Telephone encounter Rainer roberts MD Work Phone: [facility] [place] Comment on above: Results (Critical Hg b.) Start: 08-21-2022 End: 08-21-2022 Patient encounter procedure Shonda Tyler APRN.SURGERY ASSISTANT Work Phone: [facility] [place] Comment on above: Essential hypertensi on, benign (Primary Dx); Major depressive disorder with single episode, in full remission (HCC); Chronic anxiety; Anemia, unspecified type; Hypothyroidism, unspecified type Start: 06-05-2022 Refill Ming Berger Work Phone: [facility] [place] Comment on above: Refill Request Start: 05-29-2022 End: 05-29-2022 Patient encounter procedure Ming Mcknight MD Work Phone: [facility] [place] Comment on above: Anemia, unspecified type (Primary Dx); Major depressive disorder with single episode, in full remission (HCC); Chronic anxiety; Hypothyroidism, unspecified type; Essential hypertension, benign Start: 05-03-2022 Refill Shonda Tyler APRN .SURGERY ASSISTANT Work Phone: [facility] [place] Comment on above: Refill Request Start: 02-10-2022 Telephone encounter Ming hahn MD Work Phone: [facility] [place] Comment on above: stool results Start: 02-09-2022 Refill Ming Berger Work Phone: [facility] Comment on above: Refill Request Start: 01-30-2022 End: 01-30-2022 Patient encounter procedure Mindy Mancia MD Work Phone: OB/Gynecology Comment on above: Pessary maintenance (Primary Dx); Incomplete uterovaginal prolapse Start: 01-29-2022 Telephone encounter Mindy Mancia MD Work Phone: OB/Gynecology Comment on above: Patient Update Start: 01-28-2022 Telephone encounter Shonda Jayson PHILLIPS.SURGERY ASSISTANT Work Phone: [facility] [place] Comment on above: Results Start: 01-26-2022 Telephone encounter Shonda Jayson PHILLIPS.SURGERY ASSISTANT Work Phone: [facility] [place] Comment on above: Results Start: 01-23-2022 End: 01-23-2022 Patient encounter procedure Shonda Tyler APRN.SURGERY ASSISTANT Work Phone: [facility] [place] Comment on above: Anemia, unspecified type (Primary Dx); Prediabetes; Major depressive disorder with single episode, in full remission (HCC); Chronic anxiety; 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) Start: 01-12-2022 Telephone encounter Ming hahn MD Work Phone: [facility] [place] Comment on above: Refill Request Start: 01-02-2022 Telephone encounter Ming hahn MD Work Phone: [facility] [place] Comment on above: Patient Update Start: 12-05-2021 Telephone encounter Ming hahn MD Work Phone: [facility] [place] Comment on above: Results Start: 11-28-2021 End: 11-28-2021 Patient encounter procedure Ming Mcknight MD Work Phone: [facility] [place] Comment on above: Vitamin B12 deficien cy (Primary Dx); Gout with manifestations; Vitamin D deficiency; Hypothyroidism, unspecified type; Essential hypertension, benign; Encounter for screening for diabetes mellitus; Elevated glucose Start: 11-26-2021 End: 11-26-2021 Patient encounter procedure Neela Oneill PA-C Work Phone: [facility] Comment on above: Skin infection (Prim ching Dx) Start: 11-11-2021 ambulatory Ming Berger Work Phone: Internal Medicine [facility] [place] Start: 10-20-2021 Refill Ming Berger Work Phone: [facility] [place] Comment on above: Refill Request Start: 07-25-2021 End: 07-25-2021 Patient encounter procedure Mindy Mancia MD Work Phone: OB/Gynecology Comment on above: Uterovaginal prolaps e, complete (Primary Dx); Encounter for pessary maintenance Start: 07-05-2021 Refill Ming Berger Work Phone: [facility] [place] Comment on above: Refill Request Start: 05-16-2021 End: 05-16-2021 Subsequent hospital visit by physician Xr [facility] [place] Work Phone: Radiology Comment on above: Injury of right fore arm, initial encounter [N28.033I] Procedures Date Procedure Procedure Detail Performing Clinician Start: 08-13-2023 Urnls dip stick/tabl et rgnt auto w/o microscopy Shonda Tyler NET TRAINER.SURGERY ASSISTANT Work Phone: Start: 01-04-2023 INFLUENZA VACCINE, P RSV FREE, AGE 65+ YR, HIGH DOSE, QUADRIVALENT (FLUZONE HIGH-DOSE) Zoran Dumont PA-C Work Phone: Start: 05-16-2021 Radex forearm 2 views T perla Valerio NET TRAINER.SURGERY ASSISTANT Work Phone: Plan of Treatment Date Care Activity Detail Author Start: 09-02-2030 Urine microalbumin profile [facility] Start: 12-09-2026 Diabetes Screening Diabetes Screenin g [facility] Start: 04-26-2026 Diabetes Screening Diabetes Screenin g [facility] Start: 11-09-2025 DIABETES SCREEN [facility] Start: 11-09-2025 Diabetes Screening Diabetes Screenin g [facility] Start: 05-08-2025 DIABETES SCREEN [facility]CREEN [facility] Start: 12-09-2024 Covid-19 Vaccine () Covid-19 Vaccine () [facility] Comment on above: Postponed from 11/20 (Declined at this time) Start: 12-09-2024 Covid-19 Vaccine () Covid-19 Vaccine () [facility] Comment on above: Postponed from 11/20 (Declined at this time) Start: 11-28-2024 DIABETES SCREEN DIABETES SCREEN [facility] Start: 08-12-2024 Covid-19 Vaccine () Covid-19 Vaccine () [facility] Comment on above: Postponed from 11/20 (Declined at this time) Start: 08-12-2024 RSV Vaccine (1 - 1-d ose 60+ series) RSV Vaccine (1 - 1-dose 60+ series) [facility] Comment on above: Postponed from 10/18 (Declined at this time) Start: 08-12-2024 RSV Vaccine (1 - 1-d ose 75+ series) RSV Vaccine (1 - 1-dose 75+ series) [facility] Comment on above: Postponed from 10/18 (Declined at this time) Start: 08-12-2024 Shingrix Vaccine (1 of 2) Smith grix Vaccine (1 of 2) [facility] Comment on above: Postponed from 10/18 (Declined at this time) Start: 01-12-2024 End: 01-12-2024 Patient encounter procedure 01/12/2024 1:30 PM EDT Office Visit Geriatrics [address] [place], [place] [id number] Ming Mcknight MD [address] [place], [place] [id number] 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 Geriatrics Comment on above: Late onset Alzheimer '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) [G30.1, F02.... Start: 12-14-2023 End: 03-14-2024 CBC W Auto Differential panel - Blood COMPLETE BLOOD COUNT AND DIFFERENTIAL Lab Routine Anemia, unspecified type Expected: 12/14/2023, Expires: 03/14/2024 [facility] Work Phone: Comment on above: Expected: 12/14/2023 , Expires: 03/14/2024 Start: 12-10-2023 End: 03-10-2024 CBC W Auto Differential panel - Blood [facility] Work Phone: Comment on above: Expected: 12/10/2023 , Expires: 03/10/2024 Start: 12-10-2023 End: 03-10-2024 Comprehensive metabolic 2000 panel - Serum or Plasma [facility] Comment on above: Expected: 12/10/2023 , Expires: 03/10/2024 Start: 12-10-2023 End: 03-10-2024 Thyrotropin [Units/volume] in Serum or Plasma [facility] Comment on above: Expected: 12/10/2023 , Expires: 03/10/2024 Start: 12-10-2023 End: 03-10-2024 Thyroxine (T4) free [Mass/volume] in Serum or Plasma [facility] Comment on above: Expected: 12/10/2023 , Expires: 03/10/2024 Start: 12-10-2023 End: 03-10-2024 Triiodothyronine (T3) Free [Mass/volume] in Serum or Plasma [facility] Comment on above: Expected: 12/10/2023 , Expires: 03/10/2024 Start: 11-15-2023 End: 11-15-2023 Patient encounter procedure 11/15/2023 2:20 PM EDT Office Visit [facility] [address] [place] [address] Ming Mcknight MD [address] [place] [address] 3 month follow up [facility] [place] Comment on above: 3 month follow up Start: 09-01-2023 End: 12-01-2023 Bacteria identified in Urine by Culture URINE CULTURE Microbiology Routine Recent urinary tract infection Recurrent UTI Expected: 09/01/2023 (Approximate), Expires: 12/01/2023 [facility] Comment on above: Expected: 09/01/2023 (Approximate), Expires: 12/01/2023 Start: 09-01-2023 End: 12-01-2023 Urinalysis complete panel - Urine URINALYSIS, WITH MICROSCOPIC Lab Routine Recent urinary tract infection Recurrent UTI Expected: 09/01/2023 (Approximate), Expires: 12/01/2023 [facility] Work Phone: Comment on above: Expected: 09/01/2023 (Approximate), Expires: 12/01/2023 Start: 04-26-2023 End: 07-26-2023 Comprehensive metabolic 2000 panel - Serum or Plasma [facility] Work Phone: Comment on above: Expected: 04/26/2023 , Expires: 07/26/2023 Start: 04-26-2023 End: 07-26-2023 Thyrotropin [Units/volume] in Serum or Plasma [facility] Work Phone: Comment on above: Expected: 04/26/2023 , Expires: 07/26/2023 Start: 04-26-2023 End: 07-26-2023 Thyroxine (T4) free [Mass/volume] in Serum or Plasma [facility] Work Phone: Comment on above: Expected: 04/26/2023 , Expires: 07/26/2023 Start: 04-26-2023 End: 07-26-2023 Urinalysis complete panel - Urine URINALYSIS WITH MICROSCOPIC, REFLEX CULTURE Lab Routine 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) Memory change Expected: 04/26/2023, Expires: 07/26/2023 [facility] Work Phone: Comment on above: Expected: 04/26/2023 , Expires: 07/26/2023 Start: 03-22-2023 Advance Directive Discussion Advance Directive Discussion [facility] Start: 01-31-2023 DIABETES SCREEN DIABETES SCREEN [facility] Start: 11-20-2022 Covid-19 Vaccine () Covid-19 Vaccine () [facility] Start: 11-13-2022 End: 01-13-2023 Bacteria identified in Urine by Culture [facility] Work Phone: Comment on above: Expected: 11/13/2022 , Expires: 01/13/2023 Start: 11-13-2022 End: 01-13-2023 Ferritin [Mass/volume] in Serum or Plasma [facility] Work Phone: Comment on above: Expected: 11/13/2022 , Expires: 01/13/2023 Start: 11-13-2022 End: 01-13-2023 Iron and Iron binding capacity panel - Serum or Plasma [facility] Work Phone: Comment on above: Expected: 11/13/2022 , Expires: 01/13/2023 Start: 11-13-2022 End: 01-13-2023 URINALYSIS, DIPSTICK ONLY [facility] Work Phone: Comment on above: Expected: 11/13/2022 , Expires: 01/13/2023 Start: 09-21-2022 End: 11-21-2022 Basic metabolic 2000 panel - Serum or Plasma BASIC METABOLIC PNL Lab Routine Essential hypertension, benign Anemia, unspecified type Expected: 09/21/2022 (Approximate), Expires: 11/21/2022 [facility] Work Phone: Comment on above: Expected: 09/21/2022 (Approximate), Expires: 11/21/2022 Start: 09-21-2022 End: 11-21-2022 CBC W Auto Differential panel - Blood CBC + DIFF Lab Routine Essential hypertension, benign Anemia, unspecified type Expected: 09/21/2022 (Approximate), Expires: 11/21/2022 [facility] Work Phone: Comment on above: Expected: 09/21/2022 (Approximate), Expires: 11/21/2022 Start: 06-29-2022 End: 08-29-2022 Thyrotropin [Units/volume] in Serum or Plasma TSH BLD Lab Routine Hypothyroidism, unspecified type Expected: 06/29/2022, Expires: 08/29/2022 [facility] Work Phone: Comment on above: Expected: 06/29/2022 , Expires: 08/29/2022 Start: 05-29-2022 End: 07-29-2022 Erythropoietin (EPO) [Units/volume] in Serum or Plasma ERYTHROPOIETIN/EPO Lab Routine Anemia, unspecified type Expected: 05/29/2022, Expires: 07/29/2022 [facility] Work Phone: Comment on above: Expected: 05/29/2022 , Expires: 07/29/2022 Start: 05-29-2022 End: 07-29-2022 Ferritin [Mass/volume] in Serum or Plasma FERRITIN BLD Lab Routine Anemia, unspecified type Expected: 05/29/2022, Expires: 07/29/2022 [facility] Work Phone: Comment on above: Expected: 05/29/2022 , Expires: 07/29/2022 Start: 05-29-2022 End: 07-29-2022 Iron and Iron binding capacity panel - Serum or Plasma IRON + TIBC Lab Routine Anemia, unspecified type Expected: 05/29/2022, Expires: 07/29/2022 [facility] Work Phone: Comment on above: Expected: 05/29/2022 , Expires: 07/29/2022 Start: 05-29-2022 End: 07-29-2022 Lactate dehydrogenase [Enzymatic activity/volume] in Serum or Plasma LD LACTATE DEHYDRO Lab Routine Anemia, unspecified type Expected: 05/29/2022, Expires: 07/29/2022 [facility] Work Phone: Comment on above: Expected: 05/29/2022 , Expires: 07/29/2022 Start: 05-29-2022 End: 07-29-2022 RETIC COUNT RETIC COUNT Lab Routine Anemia, unspecified type Expected: 05/29/2022, Expires: 07/29/2022 [facility] Work Phone: Comment on above: Expected: 05/29/2022 , Expires: 07/29/2022 Start: 05-04-2022 End: 07-04-2022 Basic metabolic 2000 panel - Serum or Plasma BASIC METABOLIC PNL Lab Routine Hypokalemia Essential hypertension, benign Prediabetes Expected: 05/04/2022, Expires: 07/04/2022 [facility] Work Phone: Comment on above: Expected: 05/04/2022 , Expires: 07/04/2022 Start: 05-04-2022 End: 07-04-2022 CBC W Auto Differential panel - Blood CBC + DIFF Lab Routine Essential hypertension, benign Prediabetes Expected: 05/04/2022, Expires: 07/04/2022 [facility] Work Phone: Comment on above: Expected: 05/04/2022 , Expires: 07/04/2022 Start: 05-04-2022 End: 07-04-2022 Hemoglobin A1c in Blood HGB A1C Lab Routine Prediabetes Expected: 05/04/2022, Expires: 07/04/2022 [facility] Work Phone: Comment on above: Expected: 05/04/2022 , Expires: 07/04/2022 Start: 05-04-2022 End: 07-04-2022 Thyrotropin [Units/volume] in Serum or Plasma TSH BLD Lab Routine Hypothyroidism, unspecified type Expected: 05/04/2022, Expires: 07/04/2022 [facility] Work Phone: Comment on above: Expected: 05/04/2022 , Expires: 07/04/2022 Start: 03-22-2022 ADVANCE DIRECTIVE DISCUSSION ADVANCE DIRECTIVE DISCUSSION [facility] Start: 03-20-2022 End: 05-20-2022 CBC W Auto Differential panel - Blood CBC + DIFF Lab Routine Anemia, unspecified type Expected: 03/20/2022 (Approximate), Expires: 05/20/2022 [facility] Work Phone: Comment on above: Expected: 03/20/2022 (Approximate), Expires: 05/20/2022 Start: 02-27-2022 End: 04-29-2022 Thyrotropin [Units/volume] in Serum or Plasma TSH BLD Lab Routine Hypothyroidism, unspecified type Medication management Expected: 02/27/2022 (Approximate), Expires: 04/29/2022 [facility] Work Phone: Comment on above: Expected: 02/27/2022 (Approximate), Expires: 04/29/2022 Start: 01-26-2022 End: 03-28-2022 CBC W Auto Differential panel - Blood CBC + DIFF Lab Routine Anemia, unspecified type Expected: 01/26/2022, Expires: 03/28/2022 [facility] Work Phone: Comment on above: Expected: 01/26/2022 , Expires: 03/28/2022 Start: 01-23-2022 End: 03-25-2022 CBC W Auto Differential panel - Blood [facility] Work Phone: Comment on above: Expected: 01/23/2022 , Expires: 03/25/2022 Start: 01-23-2022 End: 03-25-2022 Ferritin [Mass/volume] in Serum or Plasma [facility] Work Phone: Comment on above: Expected: 01/23/2022 , Expires: 03/25/2022 Start: 01-23-2022 End: 03-25-2022 Iron and Iron binding capacity panel - Serum or Plasma [facility] Work Phone: Comment on above: Expected: 01/23/2022 , Expires: 03/25/2022 Start: 11-28-2021 End: 01-28-2022 25-hydroxyvitamin D3 [Mass/volume] in Serum or Plasma VITAMIN D 25 HYDROXY Lab Routine Vitamin D deficiency Expected: 11/28/2021, Expires: 01/28/2022 [facility] Work Phone: Comment on above: Expected: 11/28/2021 , Expires: 01/28/2022 Start: 11-28-2021 End: 01-28-2022 CBC W Auto Differential panel - Blood [facility] Work Phone: Comment on above: Expected: 11/28/2021 , Expires: 01/28/2022 Start: 11-28-2021 End: 01-28-2022 Cobalamin (Vitamin B12) [Mass/volume] in Serum or Plasma VITAMIN B12 BLOOD Lab Routine Vitamin B12 deficiency Expected: 11/28/2021, Expires: 01/28/2022 [facility] Work Phone: Comment on above: Expected: 11/28/2021 , Expires: 01/28/2022 Start: 11-28-2021 End: 01-28-2022 Comprehensive metabolic 2000 panel - Serum or Plasma [facility] Work Phone: Comment on above: Expected: 11/28/2021 , Expires: 01/28/2022 Start: 11-28-2021 End: 01-28-2022 [address] A1c in Blood [facility] Work Phone: Comment on above: Expected: 11/28/2021 , Expires: 01/28/2022 Start: 11-28-2021 End: 01-28-2022 Thyrotropin [Units/volume] in Serum or Plasma TSH BLD Lab Routine Hypothyroidism, unspecified type Expected: 11/28/2021, Expires: 01/28/2022 [facility] Work Phone: Comment on above: Expected: 11/28/2021 , Expires: 01/28/2022 Start: 11-28-2021 End: 01-28-2022 Urate [Mass/volume] in Serum or Plasma URIC ACID BLOOD Lab Routine Gout with manifestations Expected: 11/28/2021, Expires: 01/28/2022 [facility] Work Phone: Comment on above: Expected: 11/28/2021 , Expires: 01/28/2022 Start: 11-11-2021 End: 01-11-2022 CBC panel - Blood by Automated count CBC Lab Routine Hypertensive kidney disease with stage 3a chronic kidney disease (HCC) Expected: 11/11/2021, Expires: 01/11/2022 [facility] Work Phone: Comment on above: Expected: 11/11/2021 , Expires: 01/11/2022 Start: 11-11-2021 End: 01-11-2022 SCHEDULE LAB TESTING SCHEDULE LAB TESTING Lab Routine Expected: 11/11/2021, Expires: 01/11/2022 [facility] Work Phone: Comment on above: Expected: 11/11/2021 , Expires: 01/11/2022 Start: 06-12-2021 COVID-19 VACCINE (4 - Booster for Pfizer series) COVID-19 VACCINE (4 - Booster for Pfizer series) [facility] Start: 04-09-2021 COVID-19 VACCINE (4 - Booster for Pfizer series) COVID-19 VACCINE (4 - Booster for Pfizer series) [facility] Start: 04-09-2021 COVID-19 VACCINE (4 - Pfizer series) COVID-19 VACCINE (4 - Pfizer series) [facility] Start: 03-22-2021 ADVANCE DIRECTIVE DISCUSSION ADVANCE DIRECTIVE DISCUSSION [facility] Start: 1996 RSV Vaccine (1 - 1-d ose 60+ series) RSV Vaccine (1 - 1-dose 60+ series) [facility] Start: 1986 SHINGRIX VACCINE (1 of 2) SMITH GRIX VACCINE (1 of 2) [facility] Bacteria identified in Urine by Culture URINE CULTURE Microbiology Routine Recent urinary tract infection Leukocytes in urine 08/13/2023 2:28 PM EDT [facility] End: 01-25-2024 CBC W Auto Differential panel - Blood CBC + DIFF Lab Routine Iron deficiency anemia, unspecified iron deficiency anemia type Once per week for 6 Occurrences starting 01/25/2023 until 01/25/2024 [facility] Work Phone: Comment on above: Once per week for 6 Occurrences starting 01/25/2023 until 01/25/2024 End: 01-25-2024 Ferritin [Mass/volume] in Serum or Plasma FERRITIN BLD Lab Routine Iron deficiency anemia, unspecified iron deficiency anemia type Once per week for 6 Occurrences starting 01/25/2023 until 01/25/2024 [facility] Work Phone: Comment on above: Once per week for 6 Occurrences starting 01/25/2023 until 01/25/2024 Hemoglobin.gastroint estina l.lower [Presence] in Stool by Immunoassay FECAL OCCULT BLOOD TEST Lab Routine Anemia, unspecified type Ordered: 01/26/2022 [facility] Work Phone: Comment on above: Ordered: 01/26/2022 Hemoglobin.gastroint estina l.lower [Presence] in Stool by Immunoassay FECAL OCCULT BLOOD TEST Lab Routine Anemia, unspecified type Ordered: 05/29/2022 [facility] Work Phone: Comment on above: Ordered: 05/29/2022 End: 01-25-2024 Iron and Iron binding capacity panel - Serum or Plasma IRON + TIBC Lab Routine Iron deficiency anemia, unspecified iron deficiency anemia type Once per week for 6 Occurrences starting 01/25/2023 until 01/25/2024 [facility] Work Phone: Comment on above: Once per week for 6 Occurrences starting 01/25/2023 until 01/25/2024 UA DIP, URINE (POC) UA DIP, URIN E (POC) Lab Routine Recent urinary tract infection Ordered: 08/13/2023 [facility] Work Phone: Comment on above: Ordered: 08/13/2023 [facility] Immunizations Immunization Date Immunization Notes Care Provider Joao thorne 01-04-2023 influenza (HD-IIV4) vaccine, age 65+ yr, high dose, quadrivalent, PF (FLUZONE HIGH-DOSE) Zoran Dumont PA-C Work Phone: [facility] Work Phone: 02-12-2021 COVID-19 vaccine, ag e 12+ yr (Copanion-PasslogixNTTheBankCloud - PURPLE TOP) Ming Mcknight MD Work Phone: [facility] Work Phone: 12-27-2020 influenza, high-dose , quadrivalent vaccine (FLUZONE HIGH DOSE QUADRIVALENT) Ming Mcknight MD Work Phone: [facility] Work Phone: 09-02-2020 tetanus and diphther ia toxoids, adsorbed, preservative free, for adult use (5 Lf of tetanus toxoid and 2 Lf of diphtheria toxoid) Ming Mcknight MD Work Phone: [facility] Work Phone: 06-13-2020 COVID-19 vaccine, ag e 12+ yr (PFIZER-BIONTECH - PURPLE TOP) Ming Mcknight MD Work Phone: [facility] 05-23-2020 COVID-19 vaccine, ag e 12+ yr (PFIZER-BIONTECH - PURPLE TOP) Ming Mcknight MD Work Phone: [facility] 03-19-2015 pneumococcal conjuga te vaccine, 13 valent Ming Mcknight MD Work Phone: [facility] 07-30-2011 tetanus toxoid, redu rene diphtheria toxoid, and acellular pertussis vaccine, adsorbed Ming Mcknight MD Work Phone: [facility] 09-27-2006 pneumococcal polysaccharide vaccine, 23 valent Ming Mcknight MD Work Phone: [facility] Work Phone: Payers Date Payer Category Payer Medicare MEDICARE MEDICAR E A AND B [id number] 2001-Present [phone] [place] [address] Medicare [id number] 2001 Medicare MEDICARE MEDICAR E A AND B [id number] 2001-Present [phone] [place] [address] Medicare [id number] 2001 Unknown [employer] [place] HOSPITAL MEDICARE SUPPLEMENT [id number] 2001-Present [phone] [address] [place] [address] Indemnity [id number] 2001 Unknown [employer] [facility] MEDICARE SUPPLEMENT [id number] 2001-Present [phone] [address] [place] [address] Indemnity [id number] 2001 Medicare [id number] 2001 Medicare [id number] Social History Date Type Detail Facility Start: 01-23-2011 End: 01-25-2023 Tobacco smoking status NHIS Ex-smoker [facility] Work Phone: Start: 06-06-2021 End: 12-10-2023 Alcohol intake Current non-drinker of alcohol (finding) [facility] Start: 1935 Sex Assigned At Not on file [facility] Start: 05-27-2021 End: 01-30-2022 Exposure to SARS-CoV-2 (event) Not sure [facility] Work Phone: Start: 03-22-1972 End: 03-22-1992 History of tobacco use Current smoker [facility] Work Phone: Start: 01-23-2011 End: 01-25-2023 Tobacco use and exposure Smokeless tobacco non-user [facility] Work Phone: Start: 11-25-2021 End: 12-05-2021 Exposure to SARS-CoV-2 (event) Unable to assess [facility] Start: 05-26-2022 History SDOH Alcohol Frequency 1 [facility] Start: 05-26-2022 History SDOH Alcohol Std Drinks 0 [facility] Start: 05-26-2022 History SDOH Social Connections Phone 5 [facility] Start: 05-26-2022 History SDOH Social Connections Membership 2 [facility] Start: 05-26-2022 History SDOH Financial 4 [facility] Start: 05-26-2022 End: 08-21-2022 [facility] of [facility] Start: 05-26-2022 End: 08-21-2022 Social connection and isolation panel [facility] Do you belong to any clubs or organizations such as caodaism groups, unions, fraternal or athletic groups, or school groups? No [facility] Are you now , , , , never or living with a partner? [facility] How often to you hav e a drink containing alcohol? Never [facility] How many standard dr inks containing alcohol do you have on a typical day? Patient does not drink [facility] How hard is it for y ou to pay for the very basics like food, housing, medical care, and heating Not very hard [facility] Do you feel stress - tense, restless, nervous, or anxious, or unable to sleep at night because your mind is troubled all the time - these days [OSQ] Not at all [facility] (I/We) worried wheth er (my/our) food would run out before (I/we) got money to buy more. Never true [facility] Start: 03-22-1972 End: 03-22-1992 History of tobacco use Cigarette Smoker [facility] Clinical Notes 03-19-2015 to 12-24-2023 Telephone Encounter - Isatu Moreno LPN - 12/24/2023 3:59 PM EDTTelephone Encounter - Isatu Moreno LPN - 12/24/2023 3:59 PM EDTTelephone Encounter - Isatu Moreno LPN - 12/24/2023 3:59 PM EDT Note Date & Type Note Facility 12-24-2023 Telephone encounter Note Updated via [employer] Isatu Moreno LPN December 24, 2023 3:59 PM [facility] 12-24-2023 Telephone encounter Note ----- Message from Ming Mcknight MD sent at 12/24/2023 2:33 PM EDT ----- Hb is a little improved from the last time Ming Vargas MD [facility] 12-24-2023 Miscellaneous Notes Updated via [employer] Isatu Moreno LPN December 24, 2023 3:59 PM ----- Message from Ming Mcknight MD sent at 12/24/2023 2:33 PM EDT ----- Hb is a little improved from the last time Ming Vargas MD documented in this encounter [facility] 12-14-2023 Telephone encounter Note Jillian notified and verbalized understanding. Zoran Gamble MA [facility] 12-14-2023 Miscellaneous Notes Jillian notified and verbalized understanding. Zoran Gamble MA I have ordered the cbc. She will need to have a follow up. Ming Vargas MD Patient's Daughter calls and states that they had taken patient to [facility] hospital yesterday. Patient's Hgb was 6.8 [...] Johanna Gamez RN documented in this encounter [facility] 12-14-2023 Telephone encounter Note I have ordered the cbc. She will need to have a follow up. Ming Vargas MD [facility] Work Phone: 12-14-2023 Telephone encounter Note Patient's Daughter calls and states that they had taken patient to [facility] hospital yesterday. Patient's Hgb was 6.8 [...] order to be placed. Johanna Gamez RN [facility] 12-13-2023 Telephone encounter Note Daughter notified, was already on way up from [place] and feels she will just plan on going to ER to be on the safe side. [facility] 12-13-2023 Miscellaneous Notes Daughter notified, was already on way up from [place] and feels she will just plan on going to ER to be on the safe side. She only needs to go to ER if actively bleeding or symptomatic. If not we can look into doing outpt transfusion if needed and as an outpt identify a cause. Thank you Shonda Tyler APRN.CNP Phoned Jillian patient daughter who said she lives in [place]. Went over results notes from Shonda Tyler [employer], she said she does not see mother stools so she does not know, she said she sleeps a lot but thought it is medications. She said she just got back home from [place], she said so I need to get back in my car and come back to [place] and take her to the ER. Asked [...] Shonda Tyler APRN.CNP documented in this encounter [facility] 12-13-2023 Telephone encounter Note She only needs to go to ER if actively bleeding or symptomatic. If not we can look into doing outpt transfusion if needed and as an outpt identify a cause. Thank you Shonda Tyler APRN.CNP [facility] 12-13-2023 Telephone encounter Note Phoned Jillian patient daughter who said she lives in [place]. Went over results notes from Shonda Tyler [employer], she said she does not see mother stools so she does not know, she said she sleeps a lot but thought it is medications. She said she just got back home from [place], she said so I need to get back in my car and come back to [place] and take her to the ER. Asked if she was her POA for healthcare and she said no, my niece is. So she is calling the niece to tell her she needs to go to the ER for possible blood transfusions. [facility] 12-13-2023 Telephone encounter Note Hgb is low at 7.1? Any active bleeding? Dark sticky stools? Shortness of breath? Lethargy? Chest pain? Palpitations? If symptomatic, she needs to go to ER. Thank you Shonda Tyler APRN.CNP [facility] 12-10-2023 Note HNO ID: [id number] Author: SHONDA TYLER APRN.CNP Service: ? Author [...] Take 1 tablet by mouth once daily. Sgtucabseoirs-Bwemddfp-Muzzdn (CENTRUM SILVER) ORAL Tab Take one(1) tablet [...] Screening Completed Adva (more content not included)... [facility] 12-10-2023 History of Presen t illness Narrative [...] Take 1 tablet by mouth once daily. Byadlxlnzenph-Gjsrmrro-Nbghwh (CENTRUM SILVER) ORAL Tab Take one(1) tablet [...] Shonda Tyler APRN.CNP documented in this encounter [facility] 10-04-2023 Telephone encounter Note The patient [...] Gamez RN October 04, 2023 8:12 AM [facility] 10-04-2023 Miscellaneous Notes The patient has [...] 2023 8:12 AM documented in this encounter [facility] 09-24-2023 Telephone encounter Note Left detailed message with daughter. Lilia Richmond MA [facility] 09-24-2023 Miscellaneous Notes Left detailed message with daughter. Lilia Richmond MA The following approved medication requests have been transmitted electronically. Requested Prescriptions Signed Prescriptions Disp Refills sulfamethoxazole-trimethoprim (BACTRIM DS) 800-160 mg per tablet 14 tablet 0 Sig: Take 1 tablet by mouth two times a day for 7 days. Authorizing Provider: KRYSTAL MEZA APRN.SURGERY ASSISTANT Pts daughter called and is notified of providers results and instructions. She voices understanding and states she was never notified about any antibiotic. Please send antibiotic to [facility] in [place] and call and leave a VM on [...] Krystal Meza APRN.CNP documented in this encounter [facility] 09-24-2023 Telephone encounter Note The following approved medication requests have been transmitted electronically. Requested Prescriptions Signed Prescriptions Disp Refills sulfamethoxazole-trimethoprim (BACTRIM DS) 800-160 mg per tablet 14 tablet 0 Sig: Take 1 tablet by mouth two times a day for 7 days. Authorizing Provider: KRYSTAL MEZA APRN.CNP [facility] 09-24-2023 Telephone encounter Note Pts daughter called and is notified of providers results and instructions. She voices understanding and states she was never notified about any antibiotic. Please send antibiotic to [facility] in [place] and call and leave a VM on the daughters phone to let her know when it was sent. Suzy Lindo, KEYONNA [facility] 09-24-2023 Telephone encounter Note Left message to return call. [facility] 09-24-2023 Telephone encounter Note Please let her know that her urine culture does show a UTI. I don't see that Shonda sent her in an antibiotic? Please confirm this with her and I will send one in. Krystal Meza APRN.CNP [facility] 08-18-2023 Telephone encounter Note Patient daughter notified. [facility] 08-18-2023 Miscellaneous Notes Patient daughter notified. Urine still with bacteria but no sensitivity performed. I am repeating treatment of bactrim but slightly lowering dose in response to previous kidney function. Repeat urine 10-14 days after completion of treatment. documented in this encounter [facility] 08-18-2023 Telephone encounter Note Urine still with bacteria but no sensitivity performed. I am repeating treatment of bactrim but slightly lowering dose in response to previous kidney function. Repeat urine 10-14 days after completion of treatment. [facility] 08-13-2023 Telephone encounter Note Daughter phones for refill(s): Requested Prescriptions Pending Prescriptions Disp Refills levothyroxine (LEVOXYL) 50 mcg tablet 30 tablet 5 Sig: Take 1 tablet by mouth once daily. Take on empty stomach. For Thyroid Date of last office visit in primary care: 08/13/2023 Date of next office visit in primary care: 11/15/2023 Lara Rodríguez RN. [facility] 08-13-2023 Miscellaneous Notes Daughter phones for refill(s): Requested Prescriptions Pending Prescriptions Disp Refills levothyroxine (LEVOXYL) 50 mcg tablet 30 tablet 5 Sig: Take 1 tablet by mouth once daily. Take on empty stomach. For Thyroid Date of last office visit in primary care: 08/13/2023 Date of next office visit in primary care: 11/15/2023 Lara Rodríguez RN. documented in this encounter [facility] 08-13-2023 Note HNO ID: [id number] Author: SHONDA TYLER APRN.SURGERY ASSISTANT Service: ? Author Type: Nurse Practitioner Type: [...] Take 1 tablet by mouth once daily. Owbzaknkkvcux-Goymibfa-Lsvyej (CENTRUM SILVER) ORAL Tab Take one(1) tablet [...] URINE CULTURE 3. (more content not included)... [facility] 08-13-2023 History of Presen t illness Narrative [...] Take 1 tablet by mouth once daily. Yhtxzksjrlytv-Sacluztb-Bkmpxf (CENTRUM SILVER) ORAL Tab Take one(1) tablet [...] Patient agreeable to treatment plan. Shonda Tyler APRN.SURGERY ASSISTANT documented in this encounter [facility] 06-09-2023 Miscellaneous Notes Requested Prescriptions Pending [...] Zoran Steele Pss documented in this encounter [facility] 04-29-2023 Miscellaneous Notes Pts granddaughter Suzy called and is notified of providers results and instructions. She voices understanding and her or her mother will go pick the medication up for the Pt. Suzy Lindo RN Patient is positive for urinary tract infection. Hold your potassium supplement while on the antibiotic. Thank you Shonda Tyler APRN.CNP documented in this encounter [facility] 04-26-2023 Note HNO ID: [id number] Author: SHONDA TYLER APRN.CNP Service: ? Author [...] Take 1 tablet by mouth once daily. Piiankfeajcjr-Fhkcutkn-Vwqhyp (CENTRUM SILVER) ORAL Tab Take one(1) tablet [...] Never done D (more content not included)... [facility] 04-26-2023 History of Presen t illness Narrative [...] Take 1 tablet by mouth once daily. Ndadcexpekoyx-Gjfecjbh-Qdiuaz (CENTRUM SILVER) ORAL Tab Take one(1) tablet [...] - Instructed patient to contact office or znbnk-hj-odbd after-hours promptly should condition worsen or any new symptoms appear. - Counseling Center [facility] and after hours crisis line [...] Shonda Tyler APRN.SABIHA documented in this encounter [facility] 02-04-2023 Miscellaneous Notes Pt noted on [facility] 1st time treatment report. Pt has a non-oncology regimen. No social work follow up indicated. BONIFACIO Rodrigues-S Oncology SW documented in this encounter [facility] 01-25-2023 Note HNO ID: [id number] Author: Stu Schaeffer MD Service: ? Author [...] Take 1 tablet by mouth once daily. Rvojlkmwruanq-Bdtkxorf-Gacciu (CENTRUM SILVER) ORAL Tab Take one(1) tablet [...] which included preparing to see the patient, wfqb-bw-anol patient care, completing clinical documentation, obtaining and/or reviewing separately obtained history, counseling and educating the patient/family/caregiver, ordering medications, tests, or procedures, communicating with other HCPs (not separately reported), and communicating results to the patient/family/caregiver. Electronically Signed: Stu Schaeffer MD January 25, 2023 1:08 PM [facility] 01-25-2023 History of Presen t illness Narrative [...] Take 1 tablet by mouth once daily. Yoppnsiwcphfj-Wnwlaobl-Doajon (CENTRUM SILVER) ORAL Tab Take one(1) tablet [...] which included preparing to see the patient, dmgr-ya-vkka patient care, completing clinical documentation, obtaining and/or reviewing separately obtained history, counseling and educating the patient/family/caregiver, ordering medications, tests, or procedures, communicating with other HCPs (not separately reported), and communicating results to the patient/family/caregiver. Electronically Signed: Stu Schaeffer MD January 25, 2023 1:08 PM documented in this encounter [facility] 01-07-2023 Miscellaneous Notes Pt scheduled by another PSS LM for a return call. When she calls, please schedule first available [employer] re: anemia that works for the patient. Johanna Carlson OK to schedule with first available. Alexandra Michel RN Please review and advise. CONSULT TO HEMATOLOGY Status: Needs Scheduling Requested appt date: Authorizing: Zoran Dumont PA-C in [facility] Referral: [id number] (Authorized) Expires: 01/04/2024 Priority: Routine Diagnosis: Iron deficiency anemia, unspecified iron deficiency anemia type [D50.9] Comments Pt's provider would like pt to see Hematology. Due to anemia, iron deficiency. Zoran Dumont Please advise? documented in this encounter [facility] 01-04-2023 Note HNO ID: [id number] Author: Zoran Dumont PA-C Service: ? Author Type: Physician Snap Attacher Type: Progress Notes Filed: 01/05/2023 12:20 PM Note Text: CC: Patient presents with: Follow Up: labs,urine,confusion Immunizations: Flu vaccination HPI Ainsley Sorenson is a 87 year old female who presents today with daughter, Jillian, for 6 wk f/u regarding anemia. This daughter who takes her to all her appts, has to drive in from [place] and states it's a lot every time [...] Blood pressure monitor weight of pt 103# Yzvakojfvhppp-Jlowavir-Crflgc (CENTRUM SILVER) ORAL Tab Take one(1) tablet [...] Due to progressi (more content not included)... [facility] 01-04-2023 History of Presen t illness Narrative CC: Patient presents with: Follow Up: labs,urine,confusion Immunizations: Flu vaccination [facility] Ainsley Sorenson is a 87 year old female who presents today with daughter, Jillian, for 6 wk f/u regarding anemia. This daughter who takes her to all her appts, has to drive in from [place] and states it's a lot every time [...] colonoscopy, or additional work-up regarding this. From [facility] prior visit on 11/13/22: Patient was last [...] Blood pressure monitor weight of pt 103# Lwmxuqgnqxdse-Sqbkxhpj-Ausegn (CENTRUM SILVER) ORAL Tab Take one(1) tablet [...] Zoran Dumont PA-C documented in this encounter [facility] 11-17-2022 Miscellaneous Notes Rx sent. Patient's [...] those results. Please phone Jillian with reply: [phone] documented in this encounter [facility] 11-13-2022 History of Presen t illness [...] Take 1 tablet by mouth once daily. Khqmjuedihcrx-Cxgizdqr-Kxlgfs (CENTRUM SILVER) ORAL Tab Take one(1) tablet [...] Zoran Dumont PA-C documented in this encounter [facility] 11-10-2022 Miscellaneous Notes Zoran, looks like she is seeing you 11/13. Called pts daughter to review the procedure for this. Also called [facility] outpt infusion to let them know also. Order faxed and they will call pt to arrange for both the lab draw and the transfusion. Fyi to [employer] for 11/13/22 appt.(Nothing else is needed at [...] consult at that appointment. Jillian lives in [place] and works so will have to juggle that in order to get patient to an appointment. Please call Jillian at [phone] to schedule once orders are placed. Saumya [...] in the past. documented in this encounter [facility] 08-21-2022 History of Presen t illness Narrative CC: Patient presents with: Recheck: Follow up, review labs and BP HPI Ainsley Sorenson is a 86 year old female who presents today for routine follow up. Is accompanied by her daughter. Patient lives alone but other daughter lives across the street and comes over daily to check on mother, help with anything needed, and cookee. Last appointment with PCP zoloft decreased because of fatigue and lisinopril stopped because of low blood pressure. HTN: Ms. Soernson indicates that she is feeling well and [...] Take 1 tablet by mouth once daily. Nkjmqvnmwcnkg-Kanbwyoy-Lajioj (CENTRUM SILVER) ORAL Tab Take one(1) tablet [...] - Instructed patient to contact office or tcmzs-tt-fgab after-hours promptly should condition worsen or any new symptoms appear. - Counseling Center [facility] and after hours crisis line [...] Shonda Tyler APRN.SABIHA documented in this encounter [facility] 06-05-2022 Miscellaneous Notes Addended by: SHONDA [...] Iliana Mata LPN documented in this encounter [facility] 05-29-2022 History of Presen t illness [...] (ASPIRIN, ENTERIC COATED) 81 mg EC tablet Awcaxyekvlldq-Mnijfgxb-Qpdrtv (CENTRUM SILVER) ORAL Tab Review of Systems [...] Ming Mcknight MD documented in this encounter [facility] 05-04-2022 Miscellaneous Notes Left a detailed [...] done until Wednesday. documented in this encounter [facility] 02-18-2022 Miscellaneous Notes Left detailed message [...] over results, notes below from Shonda Tyler [employer]. Daughter said my mother is under 100 hundred pounds and the prep for a colonoscopy would kill her, she can not do a colonoscopy. Daughter would like [employer] to call her about this please. Noted Regards, Ming Mcknight MD Left message for return call. Please let patient/daughter know stool was positive for hidden blood. I am consulting her to general surgery for further evaluation. Thank you Shonda Tyler APRN.CNP Suzygabby Sorenson calling for results of stool testing and next step. Please advise. Iliana Mata LPN documented in this encounter [facility] 02-09-2022 Miscellaneous Notes Patient has been [...] to pharmacy. No need to notify patient. [facility] documented in this encounter [facility] 01-30-2022 History of Presen t illness [...] Mindy Mancia MD documented in this encounter [facility] 01-30-2022 Miscellaneous Notes Noted. Thank you [...] Angelic Franklin RN documented in this encounter [facility] 01-28-2022 Miscellaneous Notes Daughter notified. Order sent. TSH needs rechecked in 4-6 weeks. Thank you Shonda Tyler APRN.CNP Patient daughter states no thyroid medication has been taken, notified that 25mcg will be sent to [facility]. Levothyroxine 75mcg once daily is still active [...] Shonda Tyler APRN.CNP documented in this encounter [facility] 01-26-2022 Miscellaneous Notes Noted, will re-evaluate [...] Shonda Tyler APRN.SABIHA documented in this encounter [facility] 01-23-2022 History of Presen t illness [...] Take 1 tablet by mouth once daily. Kmwvvwaxozrjw-Vdjcwvnj-Eldavb (CENTRUM SILVER) ORAL Tab Take one(1) tablet [...] - Instructed patient to contact office or tljou-yi-rhwq after-hours promptly should condition worsen or any new symptoms appear. - Counseling Center [facility] and after hours crisis line [...] Shonda Tyler APRN.CNP documented in this encounter [facility] 01-12-2022 Miscellaneous Notes Refilled medication Daughter calling and the last prescription for medication below had to be transferred to [facility]. Daughter spoke with them and they [...] Iliana Mata LPN documented in this encounter [facility] 01-05-2022 Miscellaneous Notes Patient's Daughter calls and notified that iron prescription was sent to [facility]. Voices understanding. Johanna Gamez RN I sent [...] recommended? Jillian asking for call back at [phone]. Please review and advise, Saumya Maldonado RN documented in this encounter [facility] 12-05-2021 Miscellaneous Notes Spoke with daughter, appointment scheduled ----- Message from Ming Mcknight MD sent at 12/05/2021 1:23 PM EDT ----- Some abnormalities in labs, we can have her in for an apt to discuss or else we can do it at the next apt Nothing very very concerning; Regards, Ming Mcknight MD documented in this encounter [facility] 11-28-2021 History of Presen t illness Narrative Reason for Visit Patient presents with: F/U 6 months Ainsley Sorenson is a 86 year old female who presents here today for Above Complaints. Health Maintenance SHINGRIX VACCINE(1 of 2) ADVANCE DIRECTIVE DISCUSSION COVID-19 VACCINE(4 - Booster for Pfizer series) HPI SYCUAN but does not want to have hearing [...] Anemia: In the recent hospital visit at [place] for UTI she had mild anemia and [...] (ASPIRIN, ENTERIC COATED) 81 mg EC tablet Ymdbwikpebabq-Skexdyqj-Jfgysv (CENTRUM SILVER) ORAL Tab Oxyquinoline-Na Lauryl Sulfate [...] Ming Mcknight MD documented in this encounter [facility] 11-26-2021 History of Presen t illness Narrative Images from the original note were not included. This note was created using [employer]. Subjective Ainsley Sorenson is a 86 year [...] 1 tablet by mouth once daily. 0 Pcshtywaoeyyd-Sroujbiu-Hawjnh (CENTRUM SILVER) ORAL Tab Take one(1) tablet [...] Neela Oneill PA-C documented in this encounter [facility] 11-14-2021 Evaluation note Diagnosis Hypertensive kidney disease with stage 3a chronic kidney disease (HCC) documented in this encounter [facility]08[facility] Miscellaneous Notes* Telephone Encounter - Leah [...] patient. Zoran Steele Pss documented in [facility] [facility] of Present illness Narrative* Mindy [...] no apparent distress Pelvic: Bartholin's, urethra and Pabellones's glands were normal. The ring with support [...] prn Mindy Mancia MD [facility] Miscellaneous Notes* Telephone Encounter - Rosario Hebert LPN - 07/05/2021 10:58 AM EDT Wednesday refill is fine. * Telephone Encounter - Rosario Hebert LPN - 07/05/2021 10:56 AM EDT Patient has been identified by name and date of : Yes [employer] phones for refill(s): Pending Prescriptions Disp Refills ALLOPURINOL 100 MG TABLET 90 tablet 3 Sig: Take 1 tablet by mouth once daily. For gout. GREGG: No Date of last office visit in primary care: 06/06/21 Please advise. Thank you. Rosario Hebert LPN documented in this encounterN[facility] History of Present illness Narrative* Melissa [...] 16, 2021 1:23 PM documented in this encounterN[facility] History of Past illness Narrative* Problem Noted Date Resolved Date Depression 03/19/2015 10/12/2019 Internal hemorrhoids without mention of complica tion 04/07/2012 03/01/2014 Uterine prolapse without mention of vaginal wall prolapse 07/31/2009 07/31/2009 Other symptoms involving cardiovascular system 12/25/2015 documented as of this encounter (statuses as of 07/07/2021) [facility] of Past illness Narrative* Problem Noted Date Resolved Date Depression 03/19/2015 10/12/2019 Internal hemorrhoids without mention of complica tion 04/07/2012 03/01/2014 Uterine prolapse without mention of vaginal wall prolapse 07/31/2009 07/31/2009 Other symptoms involving cardiovascular system 12/25/2015 documented as of this encounter (statuses as of 07/25/2021) [facility] Narrative* Problem Noted Date Resolved Date Depression 03/19/2015 10/12/2019 Internal hemorrhoids without mention of complica tion 04/07/2012 03/01/2014 Uterine prolapse without mention of vaginal wall prolapse 07/31/2009 07/31/2009 Other symptoms involving cardiovascular system 12/25/2015 documented as of this encounter (statuses as of 10/20/2021) [facility] illness Narrative* Problem Noted Date Resolved Date Depression 03/19/2015 10/12/2019 Internal hemorrhoids without mention of complica tion 04/07/2012 03/01/2014 Uterine prolapse without mention of vaginal wall prolapse 07/31/2009 07/31/2009 Other symptoms involving cardiovascular system 12/25/2015 documented as of this encounter (statuses as of 11/14/2021) [facility] Narrative* Problem Noted Date Resolved Date Depression 03/19/2015 10/12/2019 Internal hemorrhoids without mention of complica tion 04/07/2012 03/01/2014 Uterine prolapse without mention of vaginal wall prolapse 07/31/2009 07/31/2009 Other symptoms involving cardiovascular system 12/25/2015 documented as of this encounter (statuses as of 11/26/2021) [facility] Narrative* Problem Noted Date Resolved Date Depression 03/19/2015 10/12/2019 Internal hemorrhoids without mention of complica tion 04/07/2012 03/01/2014 Uterine prolapse without mention of vaginal wall prolapse 07/31/2009 07/31/2009 Other symptoms involving cardiovascular system 12/25/2015 documented as of this encounter (statuses as of 11/28/2021) [facility] Narrative* Problem Noted Date Resolved Date Depression 03/19/2015 10/12/2019 Internal hemorrhoids without mention of complica tion 04/07/2012 03/01/2014 Uterine prolapse without mention of vaginal wall prolapse 07/31/2009 07/31/2009 Other symptoms involving cardiovascular system 12/25/2015 documented as of this encounter (statuses as of 12/05/2021) [facility] Narrative* Problem Noted Date Resolved Date Depression 03/19/2015 10/12/2019 Internal hemorrhoids without mention of complica tion 04/07/2012 03/01/2014 Uterine prolapse without mention of vaginal wall prolapse 07/31/2009 07/31/2009 Other symptoms involving cardiovascular system 12/25/2015 documented as of this encounter (statuses as of 01/05/2022) [facility] Narrative* Problem Noted Date Resolved Date Depression 03/19/2015 10/12/2019 Internal hemorrhoids without mention of complica tion 04/07/2012 03/01/2014 Uterine prolapse without mention of vaginal wall prolapse 07/31/2009 07/31/2009 Other symptoms involving cardiovascular system 12/25/2015 documented as of this encounter (statuses as of 01/13/2022) [facility] Narrative* Problem Noted Date Resolved Date Depression 03/19/2015 10/12/2019 Internal hemorrhoids without mention of complica tion 04/07/2012 03/01/2014 Uterine prolapse without mention of vaginal wall prolapse 07/31/2009 07/31/2009 Other symptoms involving cardiovascular system 12/25/2015 documented as of this encounter (statuses as of 01/23/2022) [facility] Narrative* Problem Noted Date Resolved Date Depression 03/19/2015 10/12/2019 Internal hemorrhoids without mention of complica tion 04/07/2012 03/01/2014 Uterine prolapse without mention of vaginal wall prolapse 07/31/2009 07/31/2009 Other symptoms involving cardiovascular system 12/25/2015 documented as of this encounter (statuses as of 01/26/2022) [facility] Narrative* Problem Noted Date Resolved Date Depression 03/19/2015 10/12/2019 Internal hemorrhoids without mention of complica tion 04/07/2012 03/01/2014 Uterine prolapse without mention of vaginal wall prolapse 07/31/2009 07/31/2009 Other symptoms involving cardiovascular system 12/25/2015 documented as of this encounter (statuses as of 01/28/2022) [facility] Narrative* Problem Noted Date Resolved Date Depression 03/19/2015 10/12/2019 Internal hemorrhoids without mention of complica tion 04/07/2012 03/01/2014 Uterine prolapse without mention of vaginal wall prolapse 07/31/2009 07/31/2009 Other symptoms involving cardiovascular system 12/25/2015 documented as of this encounter (statuses as of 01/30/2022) [facility] Narrative* Problem Noted Date Resolved Date Depression 03/19/2015 10/12/2019 Internal hemorrhoids without mention of complica tion 04/07/2012 03/01/2014 Uterine prolapse without mention of vaginal wall prolapse 07/31/2009 07/31/2009 Other symptoms involving cardiovascular system 12/25/2015 documented as of this encounter (statuses as of 01/30/2022) [facility] Narrative* Problem Noted Date Resolved Date Depression 03/19/2015 10/12/2019 Internal hemorrhoids without mention of complica tion 04/07/2012 03/01/2014 Uterine prolapse without mention of vaginal wall prolapse 07/31/2009 07/31/2009 Other symptoms involving cardiovascular system 12/25/2015 documented as of this encounter (statuses as of 02/11/2022) [facility] Narrative* Problem Noted Date Resolved Date Depression 03/19/2015 10/12/2019 Internal hemorrhoids without mention of complica tion 04/07/2012 03/01/2014 Uterine prolapse without mention of vaginal wall prolapse 07/31/2009 07/31/2009 Other symptoms involving cardiovascular system 12/25/2015 documented as of this encounter (statuses as of 02/18/2022) [facility] Narrative* Problem Noted Date Resolved Date Depression 03/19/2015 10/12/2019 Internal hemorrhoids without mention of complica tion 04/07/2012 03/01/2014 Uterine prolapse without mention of vaginal wall prolapse 07/31/2009 07/31/2009 Other symptoms involving cardiovascular system 12/25/2015 documented as of this encounter (statuses as of 05/05/2022) [facility] Narrative* Problem Noted Date Resolved Date Depression 03/19/2015 10/12/2019 Internal hemorrhoids without mention of complica tion 04/07/2012 03/01/2014 Uterine prolapse without mention of vaginal wall prolapse 07/31/2009 07/31/2009 Other symptoms involving cardiovascular system 12/25/2015 documented as of this encounter (statuses as of 05/30/2022) [facility] Narrative* Problem Noted Date Resolved Date Depression 03/19/2015 10/12/2019 Internal hemorrhoids without mention of complica tion 04/07/2012 03/01/2014 Uterine prolapse without mention of vaginal wall prolapse 07/31/2009 07/31/2009 Other symptoms involving cardiovascular system 12/25/2015 documented as of this encounter (statuses as of 06/05/2022) [facility] Narrative* Problem Noted Date Resolved Date Depression 03/19/2015 10/12/2019 Internal hemorrhoids without mention of complica tion 04/07/2012 03/01/2014 Uterine prolapse without mention of vaginal wall prolapse 07/31/2009 07/31/2009 Other symptoms involving cardiovascular system 12/25/2015 documented as of this encounter (statuses as of 08/21/2022) [facility] N[facility]ative* Problem Noted Date Diagnosed Date Resolved Date Depression 03/19/2015 10/12/2019 Internal hemorrhoids without mention of complication 04/07/2012 03/01/2014 Uterine prolapse without men tion of vaginal wall prolapse 07/31/2009 07/31/2009 Other symptoms involving car diovascular system 12/25/2015 documented as of this encounter (statuses as of 11/13/2022) [facility] N[facility]ative* Problem Noted Date Diagnosed Date Resolved Date Depression 03/19/2015 10/12/2019 Internal hemorrhoids without mention of complication 04/07/2012 03/01/2014 Uterine prolapse without men tion of vaginal wall prolapse 07/31/2009 07/31/2009 Other symptoms involving car diovascular system 12/25/2015 documented as of this encounter (statuses as of 11/14/2022) [facility]* Problem Noted Date Diagnosed Date Resolved Date Depression 03/19/2015 10/12/2019 Internal hemorrhoids without mention of complication 04/07/2012 03/01/2014 Uterine prolapse without men tion of vaginal wall prolapse 07/31/2009 07/31/2009 Other symptoms involving car diovascular system 12/25/2015 documented as of this encounter (statuses as of 11/18/2022) [facility] N[facility]ative* Problem Noted Date Diagnosed Date Resolved Date Depression 03/19/2015 10/12/2019 Internal hemorrhoids without mention of complication 04/07/2012 03/01/2014 Uterine prolapse without men tion of vaginal wall prolapse 07/31/2009 07/31/2009 Other symptoms involving car diovascular system 12/25/2015 documented as of this encounter (statuses as of 01/05/2023) [facility] N[facility]ative* Problem Noted Date Diagnosed Date Resolved Date Depression 03/19/2015 10/12/2019 Internal hemorrhoids without mention of complication 04/07/2012 03/01/2014 Uterine prolapse without men tion of vaginal wall prolapse 07/31/2009 07/31/2009 Other symptoms involving car diovascular system 12/25/2015 documented as of this encounter (statuses as of 01/07/2023) [facility] N[facility]ative* Problem Noted Date Diagnosed Date Resolved Date Depression 03/19/2015 10/12/2019 Internal hemorrhoids without mention of complication 04/07/2012 03/01/2014 Uterine prolapse without men tion of vaginal wall prolapse 07/31/2009 07/31/2009 Other symptoms involving car diovascular system 12/25/2015 documented as of this encounter (statuses as of 01/26/2023) [facility]ative* Problem Noted Date Diagnosed Date Resolved Date Depression 03/19/2015 10/12/2019 Internal hemorrhoids without mention of complication 04/07/2012 03/01/2014 Uterine prolapse without men tion of vaginal wall prolapse 07/31/2009 07/31/2009 Other symptoms involving car diovascular system 12/25/2015 documented as of this encounter (statuses as of 02/04/2023) [facility] N[facility]ative* Problem Noted Date Diagnosed Date Resolved Date Depression 03/19/2015 10/12/2019 Internal hemorrhoids without mention of complication 04/07/2012 03/01/2014 Uterine prolapse without men tion of vaginal wall prolapse 07/31/2009 07/31/2009 Other symptoms involving car diovascular system 12/25/2015 documented as of this encounter (statuses as of 02/05/2023) [facility] N[facility]ative* Problem Noted Date Diagnosed Date Resolved Date Depression 03/19/2015 10/12/2019 Internal hemorrhoids without mention of complication 04/07/2012 03/01/2014 Uterine prolapse without men tion of vaginal wall prolapse 07/31/2009 07/31/2009 Other symptoms involving car diovascular system 12/25/2015 documented as of this encounter (statuses as of 02/26/2023) [facility]ative* Problem Noted Date Diagnosed Date Resolved Date Depression 03/19/2015 10/12/2019 Internal hemorrhoids without mention of complication 04/07/2012 03/01/2014 Uterine prolapse without men tion of vaginal wall prolapse 07/31/2009 07/31/2009 Other symptoms involving car diovascular system 12/25/2015 documented as of this encounter (statuses as of 04/27/2023) [facility] Narrative* Problem Noted Date Diagnosed Date Resolved Date Depression 03/19/2015 10/12/2019 Internal hemorrhoids without mention of complication 04/07/2012 03/01/2014 Uterine prolapse without men tion of vaginal wall prolapse 07/31/2009 07/31/2009 Other symptoms involving car diovascular system 12/25/2015 documented as of this encounter (statuses as of 04/29/2023) [facility] Narrative* Problem Noted Date Diagnosed Date Resolved Date Depression 03/19/2015 10/12/2019 Internal hemorrhoids without mention of complication 04/07/2012 03/01/2014 Uterine prolapse without men tion of vaginal wall prolapse 07/31/2009 07/31/2009 Other symptoms involving car diovascular system 12/25/2015 documented as of this encounter (statuses as of 06/09/2023) [facility] Diagnosis Gout with manifestations Gout with other specified manifestations [facility] Diagnosis Uterovaginal prolapse, complete- Primary Encounter for pessary maintenance Fitting and adjustment of other device [facility] this encounter [facility] Diagnosis Hypokalemia Hypopotassemia [facility] Diagnosis Skin infection- Primary Unspecified local infection of skin and subcutaneous tissue [facility] Diagnosis Vitamin B12 deficiency- Primary Other B-complex deficiencies Gout with manifestations Gout with other specified manifestations Vitamin D deficiency Unspecified vitamin D deficiency Hypothyroidism, unspecified type Essential hypertension, benign Encounter for screening for diabetes mellitus Screening for diabetes mellitus Elevated glucose Other abnormal glucose [facility] this encounter [facility]* Diagnosis Anemia, unspecified type- Primary Prediabetes Other abnormal glucose Major depressive disorder with single episode, in full remission (HCC) Chronic anxiety Anxiety state, unspecified 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) [facility]* Diagnosis Anemia, unspecified type- Primary [facility] Diagnosis Hypothyroidism, unspecified type- Primary Medication management Encounter for long-term (current) use of other medications [facility] Diagnosis Pessary maintenance- Primary Fitting and adjustment of other device Incomplete uterovaginal prolapse Uterovaginal prolapse, incomplete [facility] this [facility]* Diagnosis 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 Diagnosis Hypothyroidism, unspecified type- Primary Hypokalemia Hypopotassemia Essential hypertension, benign Prediabetes Other abnormal glucose [facility] Diagnosis Anemia, unspecified type- Primary Major depressive disorder with single episode, in full remission (HCC) Chronic anxiety Anxiety state, unspecified Hypothyroidism, unspecified type Essential hypertension, benign [facility]* Diagnosis Essential hypertension, benign [facility]* Diagnosis Essential hypertension, benign- Primary Major depressive disorder with single episode, in full remission (HCC) Chronic anxiety Anxiety state, unspecified Anemia, unspecified type Hypothyroidism, unspecified type [facility] Diagnosis Microcytic anemia- Primary Iron deficiency anemia, unspecified History of recent blood transfusion Acute confusion Delirium due to conditions classified elsewhere [facility] this encounter [facility] Diagnosis Iron deficiency anemia due to chronic blood loss- Primary Iron deficiency anemia secondary to blood loss (chronic) documented [facility]* Diagnosis Urinary tract infection without hematuria, site unspecified- Primary [facility] Diagnosis Iron deficiency anemia, unspecified iron deficiency anemia type- Primary 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) Gout with manifestations Gout with other specified manifestations Need for influenza vaccination Need for prophylactic vaccination and inoculation against influenza [facility] this encounter [facility] Diagnosis Iron deficiency anemia, unspecified iron deficiency anemia type- Primary [facility] Diagnosis Iron deficiency anemia, unspecified iron deficiency anemia type [facility] this [facility] Diagnosis Iron deficiency anemia, unspecified iron deficiency anemia type- Primary [facility]* Diagnosis Other iron deficiency anemia- Primary Iron deficiency anemia, unspecified iron deficiency anemia type [facility]* Diagnosis 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)- Primary Memory change Memory loss Hypothyroidism, unspecified type Major depressive disorder with single episode, in full remission (HCC) Chronic anxiety Anxiety state, unspecified Stage 3a chronic kidney disease (HCC) Diarrhea, unspecified type [facility] this encounter [facility] Diagnosis Major depressive disorder with single episode, in full remission (HCC) Chronic anxiety Anxiety state, unspecified [facility] Diagnosis Recent urinary tract infection- Primary Leukocytes in urine Other cells and casts in urine 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) Hypothyroidism, unspecified type Hypertensive kidney disease with stage 3a chronic kidney disease (HCC) Stage 3a chronic kidney disease (HCC) documented [facility] this encounter [facility]* Diagnosis Injury of right forearm, initial encounter documented in this encounter [facility] for referral (narrative)* Diagnostic Procedure Only (Urgent) - Closed Specialty Diagnoses / Procedures Referred By Contac t Referred To Contact XR IMAGING Diagnoses Injury of right forearm, initial encounter Procedures XR FOREARM GENERAL 2V AP/LAT RIGHT RADEX FOREARM 2 VIEWS Marianna Valerio APRN.CNP [id number] [place] [address] Xr Imaging [place] [address] Referral ID Status Reason Start Date Expiration Date V isits Requested Visits Authorized [id number] Closed Auto-Generate d Referral 05/16/2021 06/15/2022 1 1 [facility] for visit Narrative* Diagnostic Procedure Only (Urgent) - Closed Specialty Diagnoses / Procedures Referred By Contac t Referred To Contact XR IMAGING Diagnoses Injury of right forearm, initial encounter Procedures XR FOREARM GENERAL 2V AP/LAT RIGHT RADEX FOREARM 2 VIEWS Marianna Valerio APRN.CNP [address] [place] [address] [facility] [id number] Referral ID Status Reason Start Date Expiration Date V isits Requested Visits Authorized [id number] Closed Auto-Generate d Referral 05/16/2021 06/15/2022 1 1 [facility] Advance Directives Documents on File Type Date Recorded 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 Advance Directive(s) 07/31/2021 9:05 AM Documents on File Type Date Recorded 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 Advance Directive(s) 07/31/2021 9:05 AM Reason for Referral Specialty Diagnoses / Procedures Referred By Contac t Referred To Contact Gastroenterology Diagnoses Microcytic anemia History of recent blood transfusion Procedures CONSULT TO GASTROENTEROLOGY OFFICE/OUTPATIENT [facility] 60-74 MINUTES Zoran Dumont PA-C [address] [place] [address] Referral ID Status Reason Start Date Expiration Date Visits Requested Visits Authorized [id number] Authorized PCP Requested Referral 11/13/2022 11/13/2023 1 1 Specialty Diagnoses / Procedures Referred By Contac t Referred To Contact Hematology Diagnoses Iron deficiency anemia, unspecified iron deficiency anemia type Procedures CONSULT TO HEMATOLOGY OFFICE/OUTPATIENT [facility] 60-74 MINUTES Zoran Dumont PA-C [address] [place] [address] Referral ID Status Reason Start Date Expiration Date Visits Requested Visits Authorized [id number] Authorized PCP Requested Referral 3 01/04/2024 1 1 Specialty Diagnoses / Procedures Referred By Contac t Referred To Contact Gerontology Diagnoses 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) Unsteady gait Procedures CONSULT TO GERIATRICS OFFICE/OUTPATIENT [facility] 60 MINUTES Shonda Tyler APRN.SURGERY ASSISTANT [address] [place] [address] Referral ID Status Reason Start Date Expiration Date Visits Requested Visits Authorized [id number] Authorized PCP Requested Referral 12/10/2023 12/09/2024 1 [...] or prosecute any alcohol or drug abuse patient.[facility] HospitalIn the event this information is protected by the Federal Confidentiality of Alcohol and Drug Abuse Patient Records regulations: The Federal rules restrict any use of the information to criminally investigate or prosecute any alcohol or drug abuse patient.[facility] HospitalIn the event this information is protected by the Federal Confidentiality of Alcohol and Drug Abuse Patient Records regulations: The Federal rules restrict any use of the information to criminally investigate or prosecute any alcohol or drug abuse patient.[facility] HospitalIn the event this information is protected by the Federal Confidentiality of Alcohol and Drug Abuse Patient Records regulations: The Federal rules restrict any use of the information to criminally investigate or prosecute any alcohol or drug abuse patient.[facility] HospitalIn the event this information is protected by the Federal Confidentiality of Alcohol and Drug Abuse Patient Records regulations: The Federal rules restrict any use of the information to criminally investigate or prosecute any alcohol or drug abuse patient.[facility] HospitalIn the event this information is protected by the Federal Confidentiality of Alcohol and Drug Abuse Patient Records regulations: The Federal rules restrict any use of the information to criminally investigate or prosecute any alcohol or drug abuse patient.[facility] HospitalIn the event this information is protected by the Federal Confidentiality of Alcohol and Drug Abuse Patient Records regulations: The Federal rules restrict any use of the information to criminally investigate or prosecute any alcohol or drug abuse patient.[facility] HospitalIn the event this information is protected by the Federal Confidentiality of Alcohol and Drug Abuse Patient Records regulations: The Federal rules restrict any use of the information to criminally investigate or prosecute any alcohol or drug abuse patient.[facility] HospitalIn the event this information is protected by the Federal Confidentiality of Alcohol and Drug Abuse Patient Records regulations: The Federal rules restrict any use of the information to criminally investigate or prosecute any alcohol or drug abuse patient.[facility] HospitalIn the event this information is protected by the Federal Confidentiality of Alcohol and Drug Abuse Patient Records regulations: The Federal rules restrict any use of the information to criminally investigate or prosecute any alcohol or drug abuse patient.[facility] HospitalIn the event this information is protected by the Federal Confidentiality of Alcohol and Drug Abuse Patient Records regulations: The Federal rules restrict any use of the information to criminally investigate or prosecute any alcohol or drug abuse patient.[facility] HospitalIn the event this information is protected by the Federal Confidentiality of Alcohol and Drug Abuse Patient Records regulations: The Federal rules restrict any use of the information to criminally investigate or prosecute any alcohol or drug abuse patient.[facility] HospitalIn the event this information is protected by the Federal Confidentiality of Alcohol and Drug Abuse Patient Records regulations: The Federal rules restrict any use of the information to criminally investigate or prosecute any alcohol or drug abuse patient.[facility] HospitalIn the event this information is protected by the Federal Confidentiality of Alcohol and Drug Abuse Patient Records regulations: The Federal rules restrict any use of the information to criminally investigate or prosecute any alcohol or drug abuse patient.[facility] HospitalIn the event this information is protected by the Federal Confidentiality of Alcohol and Drug Abuse Patient Records regulations: The Federal rules restrict any use of the information to criminally investigate or prosecute any alcohol or drug abuse patient.[facility] HospitalIn the event this information is protected by the Federal Confidentiality of Alcohol and Drug Abuse Patient Records regulations: The Federal rules restrict any use of the information to criminally investigate or prosecute any alcohol or drug abuse patient.[facility] HospitalIn the event this information is protected by the Federal Confidentiality of Alcohol and Drug Abuse Patient Records regulations: The Federal rules restrict any use of the information to criminally investigate or prosecute any alcohol or drug abuse patient.[facility] HospitalIn the event this information is protected by the Federal Confidentiality of Alcohol and Drug Abuse Patient Records regulations: The Federal rules restrict any use of the information to criminally investigate or prosecute any alcohol or drug abuse patient.[facility] HospitalIn the event this information is protected by the Federal Confidentiality of Alcohol and Drug Abuse Patient Records regulations: The Federal rules restrict any use of the information to criminally investigate or prosecute any alcohol or drug abuse patient.[facility] HospitalIn the event this information is protected by the Federal Confidentiality of Alcohol and Drug Abuse Patient Records regulations: The Federal rules restrict any use of the information to criminally investigate or prosecute any alcohol or drug abuse patient.[facility] HospitalIn the event this information is protected by the Federal Confidentiality of Alcohol and Drug Abuse Patient Records regulations: The Federal rules restrict any use of the information to criminally investigate or prosecute any alcohol or drug abuse patient.[facility] HospitalIn the event this information is protected by the Federal Confidentiality of Alcohol and Drug Abuse Patient Records regulations: The Federal rules restrict any use of the information to criminally investigate or prosecute any alcohol or drug abuse patient.[facility] HospitalIn the event this information is protected by the Federal Confidentiality of Alcohol and Drug Abuse Patient Records regulations: The Federal rules restrict any use of the information to criminally investigate or prosecute any alcohol or drug abuse patient.[facility] HospitalIn the event this information is protected by the Federal Confidentiality of Alcohol and Drug Abuse Patient Records regulations: The Federal rules restrict any use of the information to criminally investigate or prosecute any alcohol or drug abuse patient.[facility] HospitalIn the event this information is protected by the Federal Confidentiality of Alcohol and Drug Abuse Patient Records regulations: The Federal rules restrict any use of the information to criminally investigate or prosecute any alcohol or drug abuse patient.[facility] HospitalIn the event this information is protected by the Federal Confidentiality of Alcohol and Drug Abuse Patient Records regulations: The Federal rules restrict any use of the information to criminally investigate or prosecute any alcohol or drug abuse patient.[facility] HospitalIn the event this information is protected by the Federal Confidentiality of Alcohol and Drug Abuse Patient Records regulations: The Federal rules restrict any use of the information to criminally investigate or prosecute any alcohol or drug abuse patient.[facility] HospitalIn the event this information is protected by the Federal Confidentiality of Alcohol and Drug Abuse Patient Records regulations: The Federal rules restrict any use of the information to criminally investigate or prosecute any alcohol or drug abuse patient.[facility] HospitalIn the event this information is protected by the Federal Confidentiality of Alcohol and Drug Abuse Patient Records regulations: The Federal rules restrict any use of the information to criminally investigate or prosecute any alcohol or drug abuse patient.[facility] HospitalIn the event this information is protected by the Federal Confidentiality of Alcohol and Drug Abuse Patient Records regulations: The Federal rules restrict any use of the information to criminally investigate or prosecute any alcohol or drug abuse patient.[facility] HospitalIn the event this information is protected by the Federal Confidentiality of Alcohol and Drug Abuse Patient Records regulations: The Federal rules restrict any use of the information to criminally investigate or prosecute any alcohol or drug abuse patient.[facility] HospitalIn the event this information is protected by the Federal Confidentiality of Alcohol and Drug Abuse Patient Records regulations: The Federal rules restrict any use of the information to criminally investigate or prosecute any alcohol or drug abuse patient.[facility] HospitalIn the event this information is protected by the Federal Confidentiality of Alcohol and Drug Abuse Patient Records regulations: The Federal rules restrict any use of the information to criminally investigate or prosecute any alcohol or drug abuse patient.[facility] HospitalIn the event this information is protected by the Federal Confidentiality of Alcohol and Drug Abuse Patient Records regulations: The Federal rules restrict any use of the information to criminally investigate or prosecute any alcohol or drug abuse patient.[facility] HospitalIn the event this information is protected by the Federal Confidentiality of Alcohol and Drug Abuse Patient Records regulations: The Federal rules restrict any use of the information to criminally investigate or prosecute any alcohol or drug abuse patient.[facility] HospitalIn the event this information is protected by the Federal Confidentiality of Alcohol and Drug Abuse Patient Records regulations: The Federal rules restrict any use of the information to criminally investigate or prosecute any alcohol or drug abuse patient.[facility] HospitalIn the event this information is protected by the Federal Confidentiality of Alcohol and Drug Abuse Patient Records regulations: The Federal rules restrict any use of the information to criminally investigate or prosecute any alcohol or drug abuse patient.[facility] HospitalIn the event this information is protected by the Federal Confidentiality of Alcohol and Drug Abuse Patient Records regulations: The Federal rules restrict any use of the information to criminally investigate or prosecute any alcohol or drug abuse patient.[facility] HospitalIn the event this information is protected by the Federal Confidentiality of Alcohol and Drug Abuse Patient Records regulations: The Federal rules restrict any use of the information to criminally investigate or prosecute any alcohol or drug abuse patient.[facility] HospitalIn the event this information is protected by the Federal Confidentiality of Alcohol and Drug Abuse Patient Records regulations: The Federal rules restrict any use of the information to criminally investigate or prosecute any alcohol or drug abuse patient.[facility] HospitalIn the event this information is protected by the Federal Confidentiality of Alcohol and Drug Abuse Patient Records regulations: The Federal rules restrict any use of the information to criminally investigate or prosecute any alcohol or drug abuse patient.[facility] HospitalIn the event this information is protected by the Federal Confidentiality of Alcohol and Drug Abuse Patient Records regulations: The Federal rules restrict any use of the information to criminally investigate or prosecute any alcohol or drug abuse patient.[facility] HospitalIn the event this information is protected by the Federal Confidentiality of Alcohol and Drug Abuse Patient Records regulations: The Federal rules restrict any use of the information to criminally investigate or prosecute any alcohol or drug abuse patient.[facility] HospitalIn the event this information is protected by the Federal Confidentiality of Alcohol and Drug Abuse Patient Records regulations: The Federal rules restrict any use of the information to criminally investigate or prosecute any alcohol or drug abuse patient.[facility] Reason for Visit (unrecogniz ed section [...] [place] [address] [place] [address] Mauricio [facility] [address] [place] [address] Referral ID Status Reason Start Date Expiration Date V isits Requested Visits Authorized [id number] Authorized 01/25/2023 04/25/2023 99 99 Reason Comments New Patient Evaluation Specialty Diagnoses / Procedures Referred By Contac t Referred To Contact Hematology Diagnoses Iron deficiency anemia, unspecified iron deficiency anemia type Procedures CONSULT TO HEMATOLOGY OFFICE/OUTPATIENT NEW HIGH MDM 60-74 MINUTES Zoran Dumont PA-C [address] [place] [address] Referral ID Status Reason Start Date Expiration Date V isits Requested Visits Authorized [id number] Closed PCP Requested Referral 01/04/2023 01/04/2024 1 1 Reason Comments 1st Time Treatment (Non-Oncology) Reason Comments Recheck Follow up anemia Reason Comments Recheck 6 week follow up Reason Onset Date Comments Refill Request 08/13/2023 Reason Onset Date Comments Refill Request 10/04/2023 Reason Comments Recheck Not as steady on fee t, walking is more difficult Care Teams (unrecognized sec tion and content) Ditch Repairer Relationship Specialty Start Date End Date Ming Mcknight MD [address] [place] [address] PCP - General Internal Medicine 12/27/20 Ditch Repairer Relationship Specialty Start Date End Date Ming Mcknight MD [address] [place] [address] PCP - General Internal Medicine 12/27/20 Ditch Repairer Relationship Specialty Start Date End Date Ming Mcknight MD [address] [place] [address] PCP - General Internal Medicine 12/27/20 Ditch Repairer Relationship Specialty Start Date End Date Ming Mcknight MD [address] [place] [address] PCP - General Internal Medicine 12/27/20 Ditch Repairer Relationship Specialty Start Date End Date Ming Mcknight MD [address] [place] [address] PCP - General Internal Medicine 12/27/20 Ditch Repairer Relationship Specialty Start Date End Date Ming Mcknight MD [address] [place] [address] PCP - General Internal Medicine 12/27/20 Ditch Repairer Relationship Specialty Start Date End Date Ming Mcknight MD [address] [place] [address] PCP - General Internal Medicine 12/27/20 Ditch Repairer Relationship Specialty Start Date End Date Ming Mcknight MD [address] [place] [address] PCP - General Internal Medicine 12/27/20 Ditch Repairer Relationship Specialty Start Date End Date Ming Mcknight MD [address] [facility] [address] PCP - General Internal Medicine 12/27/20 Ditch Repairer Relationship Specialty Start Date End Date Ming Mcknight MD [address] [place] [address] PCP - General Internal Medicine 12/27/20 Ditch Repairer Relationship Specialty Start Date End Date Ming Mcknight MD [address] [place] [address] PCP - General Internal Medicine 12/27/20 Ditch Repairer Relationship Specialty Start Date End Date Ming Mcknight MD [address] [place] [address] PCP - General Internal Medicine 12/27/20 Ditch Repairer Relationship Specialty Start Date End Date Ming Mcknight MD [address] [place] [address] PCP - General Internal Medicine 12/27/20 Ditch Repairer Relationship Specialty Start Date End Date Ming Mcknight MD [address] [place] [address] PCP - General Internal Medicine 12/27/20 Ditch Repairer Relationship Specialty Start Date End Date Ming Mcknight MD [address] [place] [address] PCP - General Internal Medicine 12/27/20 Ditch Repairer Relationship Specialty Start Date End Date Ming Mcknight MD [address] [place] [address] PCP - General Internal Medicine 12/27/20 Ditch Repairer Relationship Specialty Start Date End Date Ming Mcknight MD [address] [place] [address] PCP - General Internal Medicine 12/27/20 Ditch Repairer Relationship Specialty Start Date End Date Ming Mcknight MD [address] [place] [address] PCP - General Internal Medicine 12/27/20 Ditch Repairer Relationship Specialty Start Date End Date Ming Mcknight MD [address] [place] [address] PCP - General Internal Medicine 12/27/20 Ditch Repairer Relationship Specialty Start Date End Date Ming Mcknight MD [address] [place] [address] PCP - General Internal Medicine 12/27/20 Ditch Repairer Relationship Specialty Start Date End Date Ming Mcknight MD [address] [place] [address] PCP - General Internal Medicine 12/27/20 Ditch Repairer Relationship Specialty Start Date End Date Ming Mcknight MD [address] [place] [address] PCP - General Internal Medicine 12/27/20 Ditch Repairer Relationship Specialty Start Date End Date Ming Mcknight MD [address] [place] [address] PCP - General Internal Medicine 12/27/20 Stu Schaeffer MD [address] [place] [address] Hematology/Oncology 02/24/23 Ditch Repairer Relationship Specialty Start Date End Date Ming Mcknight MD [address] [place] [address] PCP - General Internal Medicine 12/27/20 Stu Schaeffer MD [address] [place] [address] Hematology/Oncology 02/24/23 Ditch Repairer Relationship Specialty Start Date End Date Ming Mcknight MD [address] [place] [address] PCP - General Internal Medicine 12/27/20 Stu Schaeffer MD [address] [place] [address] Hematology/Oncology 02/24/23 Ditch Repairer Relationship Specialty Start Date End Date Ming Mcknight MD [address] [place] [address] PCP - General Internal Medicine 12/27/20 Stu Schaeffer MD [address] [place] [address] Hematology/Oncology 02/24/23 Ditch Repairer Relationship Specialty Start Date End Date Ming Mcknight MD [address] [place] [address] PCP - General Internal Medicine 12/27/20 Stu Schaeffer MD [address] [place] [address] Hematology/Oncology 02/24/23 Ditch Repairer Relationship Specialty Start Date End Date Ming Mcknight MD [address] [facility] [address] PCP - General Internal Medicine 12/27/20 Stu Schaeffer MD [address] [place] [address] Hematology/Oncology 02/24/23 Ditch Repairer Relationship Specialty Start Date End Date Ming Mcknight MD [address] [place] [address] PCP - General Internal Medicine 12/27/20 Stu Schaeffer MD [address] [place] [address] Hematology/Oncology 02/24/23 Ditch Repairer Relationship Specialty Start Date End Date Ming Mcknight MD [address] [place] [address] PCP - General Internal Medicine 12/27/20 Stu Schaeffer MD [address] [place] [address] Hematology/Oncology 02/24/23 Ditch Repairer Relationship Specialty Start Date End Date Ming Mcknight MD [address] [place] [address] PCP - General Internal Medicine 12/27/20 Ditch Repairer Relationship Specialty Start Date End Date Ming Mcknight MD [address] [place] [address] PCP - General Internal Medicine 12/27/20 Stu Schaeffer MD [address] [place] [address] Hematology/Oncology 02/24/23 INFORMATION SOURCE (unrecogn ized section and content) DATE CREATED AUTHOR 12/26/2023 [facility] FOR RECORDS PERTAINING TO PATIENTS WHO ARE [...] BE BASED ON THE PRIMARY CLINICAL RECORDS. [employer] provides no warranty or guarantee of the accuracy or completeness of information in this document.
[2024-01-15] MEDS: Sodium Ferric Gluconat/Sucrose 250 MG in 0.9% Normal Saline (250mL Bag) 250 ML 135 MG IV (14:56)
[2024-01-15] MEDS: 0.9% Saline Lock 10 ML Syringe IV (14:56)
[2024-01-15] MEDS: Ensure Plus High Protein 120 ML LIQUID PO ×2 (15:01→21:17)
[2024-01-15] MEDS: MELATONIN 3 MG TABLET PO (21:15)
[2024-01-15] MEDS: Acetaminophen 325 MG Tablet 650 MG PO (21:15)
[2024-01-15] MEDS: QUEtiapine 25 MG Tablet PO (21:16)
[2024-01-16 05:00] VITALS: BP 142/68; PULSE 78; RESP 16; TEMP 36.9; O2SAT 96
[2024-01-16 05:08] LABS: Mucous, Urine 0 SEEN /hpf (<or=2+); Red Blood Cells-Urine 0 SEEN /hpf (0-5); Squamous Epithelial Cells - UA 0 SEEN /hpf (5-10)
[2024-01-16 05:19] LABS: Color, Urine Yellow (Yellow); Glucose, Dipstick Normal (Normal); Ketone-Dipstick Negative (Negative); Leukocyte Esterase-Dipstick 500 /ul (Negative); Nitrite-Dipstick Positive (Negative); Occult Blood-Urine 25 /ul (Negative); Protein-Dipstick 30 mg/dl (Negative); Specific Gravity, Urine 1.015 (1.002-1.030); Urine Bilirubin Dipstick Negative (Negative); Urine Clarity Sl. Cloudy (Clear); Urine Urobilinogen Normal (Normal)
[2024-01-16] MEDS: Levothyroxine 50 MCG Tablet PO (05:29)
[2024-01-16 06:49] LABS: Absolute Lymphocyte Count 1.57 X10^3/uL (0.83-4.51); Absolute Neutrophil Count 7.6 X10^3/uL (2.0-7.7); Basophil# 0.05 X10^3/uL; Basophil% 0.5 % (0-1); Eosinophil# 0.25 X10^3/uL; Eosinophils% 2.4 % (0-5); Hematocrit 29.1 % (37-47); Hemoglobin 8.2 g/dL (12.0-15.0); Lymphocyte # 1.57 X10^3/ul (0.83-4.51); Lymphocyte % 15.1 % (19-41); Mean Corp Hgb Conc 28.2 g/dL (32-36); Mean Corpuscular Hgb 20.6 pg (27.0-32.0); Mean Corpuscular Volume 73.1 fL (81-99); Monocyte# 0.89 X10^3/uL; Monocyte% 8.6 % (0-10); NRBC Flagged by Analyzer 0 % (0-5); Neutrophil # 7.57 X10^3/uL (2.7-7.7); Neutrophil % 72.9 % (47-70); POSITIVE MORPHOLOGY YES; Platelet Count 140 K/mm3 (150-450); RBC Distribution Width CV 23.4 % (11.6-14.6); RBC Distribution Width SD 61.5 fl (35.1-43.9); Red Blood Count 3.98 M/mm3 (4.2-5.4); White Blood Count 10.4 K/mm3 (4.4-11.0)
[2024-01-16 06:58] LABS: Differential Indicated SCAN CRITERIA MET
[2024-01-16 07:11] LABS: Bacteria 3+ /hpf (None Seen); White Blood Cells 5-10 SEEN /hpf (0-5)
[2024-01-16 07:14] LABS: Anion Gap 5 (5-15); BUN 27 mg/dL (7-18); BUN/Creat Ratio 21.1 RATIO (10-20); Calcium,Total 9.2 mg/dL (8.5-10.1); Chloride 114 mmol/L (98-107); Creatinine, Serum 1.28 mg/dL (0.55-1.02); EST Glomerular Filtration Rate 42 mL/min (>60); Est Glom Filt Rate - Afr Amer 51 mL/min (>60); Estimated Creatinine Clearance 23.27 ml/min; Glucose 88 mg/dL (74-106); Potassium 3.8 mmol/L (3.5-5.1); Sodium Level 143 mmol/L (136-145)
[2024-01-16 08:14] VITALS: BP 170/66; PULSE 85; RESP 25; TEMP 36.6; O2SAT 100
--- NOTE | 2024-01-16 08:25 | PN.HOSP_ITS ---
Reason for Visit Reason for Visit: Diagnoses Other symptoms and signs involving the nervous system (01/15/24) Subjective Subjective Awake. Nontoxic. Objective Data Objective Data Vital Signs: Vital Signs Temp Pulse Resp BP Pulse Ox O2 Del Method O2 Flow Rate 36.6 C 85 25 H 170/66 H 100 Nasal Cannula 2 01/16/24 08:14 01/16/24 08:14 01/16/24 08:14 01/16/24 08:14 01/16/24 08:14 01/16/24 08:14 01/16/24 08:14 Oxygen Flow Rate (L/min) 2 Oxygen Delivery Method Nasal Cannula Weight: 47.6 kg Body Mass Index (BMI) 16.4 Intake & Output: Intake and Output for Last 24 Hours 01/14/24 01/15/24 01/16/24 23:59 23:59 23:59 Intake Total 440 / 440 Output Total 300 / 300 Balance 440 / 440 -300 / -300 Lab / Micro Data 01/16/24 05:29 01/16/24 05:29 Labs: Laboratory Results - last 24 hr 01/15/24 04:40: Iron 15 L, TIBC 336, Iron Saturation 4.5 L, Ferritin 24, Folate 10.60, Free T4 0.79 01/16/24 04:45: Urine Color Yellow, Urine Clarity Sl. Cloudy, Urine pH 8.0, Ur Specific Spring 1.015, Urine Protein 30 H, Urine Glucose (UA) Normal, Urine Ketones Negative, Urine Occult Blood 25 H, Urine Nitrite Positive H, Urine Bilirubin Negative, Urine Urobilinogen Normal, Ur Leukocyte Esterase 500 H, Urine RBC 0 SEEN, Urine WBC 5-10 SEEN, Ur Squamous Epith Cells 0 SEEN, Urine Bacteria 3+, Urine Mucus 0 SEEN 01/16/24 05:29: WBC 10.4, RBC 3.98 L, Hgb 8.2 L, Hct 29.1 L, MCV 73.1 L, MCH 20.6 L, MCHC 28.2 L, RDW Std Deviation 61.5 H, RDW Coeff of Sol 23.4 H, Plt Count 140 L, MPV TNP, Immature Gran % (Auto) 0.500, Neut % (Auto) 72.9 H, Lymph % (Auto) 15.1 L, [place] % (Auto) 8.6, Eos % (Auto) 2.4, Baso % (Auto) 0.5, Absolute Neuts (auto) 7.6, Absolute Lymphs (auto) 1.57, Nucleated RBC % 0, Sodium 143, Potassium 3.8, Chloride 114 H, Carbon Dioxide 24.0, Anion Gap 5, BUN 27 H, Creatinine 1.28 H, Estim Creat Clear Calc 23.27, Est GFR (MDRD) Af Amer 51 L, Est GFR (MDRD) Non-Af 42 L, BUN/Creatinine Ratio 21.1 H, Glucose 88, Calcium 9.2 Radiography Diagnostic Testing: Radiology Impression Echocardiogram 01/14/24 18:25 Interpretation Summary The estimated ejection fraction is 55-60 %. Difficult to comment on Buble studies Ordering Physician: Chelsi Mejia Referring Physician: Sayda Peace Performed By: Tennille Fiore, RDCS, RVT Brain MRI 01/15/24 09:00 IMPRESSION: 1. Involutional changes of the brain, as described above. 2. No acute infarct or intracranial hemorrhage Electronically Signed: Jerel Pop MD at 11:46 EDT Reading Location ID and State: [facility] / [place] , Service support , Physical Exam Const alert and no apparent distress Constitutional Narrative: confused but more alert. Neck no lymphadenopathy Resp normal respiratory effort, no retractions and no use of accessory muscles Cardio regular rate, regular rhythm, S1 normal heart sound and S2 normal heart sound GI normal to inspection, nondistended, normoactive bowel sounds, soft to palpation, non-tender and non-distended Assessment & Plan Assessment/Plan (1) Neurologic abnormality: PLAN: Plan Change in mental status/staring spell and abnormal speech * last known normal 1430 on 01/13. Not felt to be candidate for TNK. Concern was for CVA v complex szr. * head CT, CTA head and neck negative. * MRI brain negative for any acute process, though does show marked atrophy. No additional stroke work up per neurology. DC ASA and statin since no CVA. * EEG, pending (Neuro advising holding any antiepileptic medications at this time) * UA: + nitrites, LE, 3+ bacteria, but only 5-10 WBCs. Not sure she actually has a UTI, but will start empiric cephalexin. * PT OT ST eval iron-deficiency anemia * iron, ferritin low * TSH elevated, FT4 WNL. folate, B12 pending. * IV iron * outpt GI evaluation Chronic conditions: * CKD stage IIIb: stable post IV contrast. * Hypothyroidism: continue levothyroxine. Elevated TSH. Check FT4. * Depression/anxiety: sertraline * Hypertension: lisinopril on hold 24 post CVA to allow permissive HTN. Resume 01/15. * Alzheimer's disease: complicates care and recovery. Continue rivastigmine. VTE prophylaxis: SCDs. DC home. DW pt's Jillian peralta.
[2024-01-16 09:11] LABS: Differential Comment SCANNED
[2024-01-16 09:12] LABS: Platelet Estimate SLT DEC (ADEQ)
[2024-01-16 09:13] LABS: Acanthocytes 1+; Anisocytosis 3+; Hypochromasia 1+; Macrocytosis 1+; Microcytosis 2+; Ovalocyte 2+; Polychromasia 1+; Schistocytes RARE; Target Cells RARE; Tear Drop Cell 1+
[2024-01-16 09:34] VITALS: BP 142/66; PULSE 79; RESP 16; TEMP 36.3; O2SAT 100
[2024-01-16] MEDS: Rivastigmine Tartrate 1.5 MG Capsule 3 MG PO (09:41)
[2024-01-16] MEDS: Sertraline 50 MG Tablet PO (09:42)
[2024-01-16] MEDS: Lisinopril 10 MG Tablet PO (09:47)
[2024-01-16] MEDS: FLU VACCINE **HIGH DOSE** TV 24-25 180 MCG/0.5 ML SYRINGE IM (11:33)
--- NOTE | 2024-01-16 12:14 | DS.PCM_ITS ---
Providers Date of Admission: 01/15/24 Primary Care Physician: Dr. Sayda Peace MD Consultations 01/14/24 19:27 Consult: Tele-Neurology Routine Consulting Provider: [facility] Reason for Consult: Acute Ischemic Stroke/TIA EMERGENT Consult: No MD Notified: Yes Date Notified: 01/14/24 Time Notified: 22:16 Method of Notification: Answering Service Nursing Unit Staff Notify [facility] of Tele-Neurology Consult: Yes Reason For Visit: CVA VS SZ Diagnosis Discharge Diagnosis (1) Neurologic abnormality: Status: Acute Code(s): R29.818 - Other symptoms and signs involving the nervous system Plan Change in mental status/staring spell and abnormal speech * last known normal 1430 on 01/13. Not felt to be candidate for TNK. Concern was for CVA v complex szr. * head CT, CTA head and neck negative. * MRI brain negative for any acute process, though does show marked atrophy. No additional stroke work up per neurology. DC ASA and statin since no CVA. * EEG, pending (Neuro advising holding any antiepileptic medications at this time) * UA: + nitrites, LE, 3+ bacteria, but only 5-10 WBCs. Not sure she actually has a UTI, but will start empiric cephalexin. * PT OT ST eval iron-deficiency anemia * iron, ferritin low * TSH elevated, FT4 WNL. folate, B12 pending. * IV iron * outpt GI evaluation Chronic conditions: * CKD stage IIIb: stable post IV contrast. * Hypothyroidism: continue levothyroxine. Elevated TSH. Check FT4. * Depression/anxiety: sertraline * Hypertension: lisinopril on hold 24 post CVA to allow permissive HTN. Resume 01/15. * Alzheimer's disease: complicates care and recovery. Continue rivastigmine. VTE prophylaxis: SCDs. DC home. DW pt's Jillian peralta. Medications at Discharge Home Medications lisinopril 10 mg tablet 10 mg PO DAILY blood pressure 01/08/13 sertraline 50 mg tablet 50 mg PO DAILY mental health 12/08/19 levothyroxine 50 mcg tablet 50 mcg PO DAILY disorder of thyroid gland 01/14/24 rivastigmine tartrate 3 mg capsule 3 mg PO .qd 01/14/24 cephalexin 500 mg capsule 500 mg PO Q8 #15 caps 01/16/24 quetiapine 25 mg tablet (Seroquel) 25 mg PO QHS #30 tabs 01/16/24 Hospital Course Operations None Procedures 2-D Echocardiogram Summary of Care Provided Minutes Spent on Discharge: 32 Hospital Course: Patient presents with confusion. [place] to be due to patient with dementia due to an underlying urinary tract infection. Patient's mental status is overall improved. Patient started on cephalexin and that we will continue for 5-day course. Patient did have an MRI that showed no acute process. EEG was performed but results of which were still pending but patient had no seizure before and no seizure-like activity since that seems extremely likely that this is due to the seizure. Seen by neurology felt the encephalopathy was related with metabolic process with her underlying dementia. Subsequently found possible urinary tract infection on urinalysis. I discussed the case with her daughter, Jillian, patient will be discharged home in stable condition. Additionally patient had did have some behavioral issues where she would become combative. Patient was started on Seroquel on the and had a rather calm night. Patient will be on that moving forward to help with her behavioral issues. Weight / BMI Weight Weight: 47.6 kg Body Mass Index (BMI) 16.4 ABG / Lab / Microbiology Data 01/16/24 05:29 01/16/24 05:29 Laboratory: Laboratory Results - last 24 hr 01/16/24 04:45: Urine Color Yellow, Urine Clarity Sl. Cloudy, Urine pH 8.0, Ur Specific [place] 1.015, Urine Protein 30 H, Urine Glucose (UA) Normal, Urine Ketones Negative, Urine Occult Blood 25 H, Urine Nitrite Positive H, Urine Bilirubin Negative, Urine Urobilinogen Normal, Ur Leukocyte Esterase 500 H, Urine RBC 0 SEEN, Urine WBC 5-10 SEEN, Ur Squamous Epith Cells 0 SEEN, Urine Bacteria 3+, Urine Mucus 0 SEEN 01/16/24 05:29: WBC 10.4, RBC 3.98 L, Hgb 8.2 L, Hct 29.1 L, MCV 73.1 L, MCH 20.6 L, MCHC 28.2 L, RDW Std Deviation 61.5 H, RDW Coeff of Sol 23.4 H, Plt Count 140 L, MPV TNP, Immature Gran % (Auto) 0.500, Neut % (Auto) 72.9 H, Lymph % (Auto) 15.1 L, [place] % (Auto) 8.6, Eos % (Auto) 2.4, Baso % (Auto) 0.5, Absolute Neuts (auto) 7.6, Absolute Lymphs (auto) 1.57, Nucleated RBC % 0, Differential Comment SCANNED, Platelet Estimate SLT DEC, Polychromasia 1+, Hypochromasia 1+, Anisocytosis 3+, Microcytosis 2+, Macrocytosis 1+, Target Cells RARE, Tear Drop Cells 1+, Ovalocytes 2+, Acanthocytes (Spur) 1+, Schistocytes RARE, Sodium 143, Potassium 3.8, Chloride 114 H, Carbon Dioxide 24.0, Anion Gap 5, BUN 27 H, Creatinine 1.28 H, Estim Creat Clear Calc 23.27, E st GFR (MDRD) Af Amer 51 L, Est GFR (MDRD) Non-Af 42 L, BUN/Creatinine Ratio 21.1 H, Glucose 88, Calcium 9.2 D/C Instructions Discharge Diet: No restrictions Meaningful Use Info Meaningful Use Meaningful Use Diagnoses (Choose all that apply): None applicable Ischemic Stroke Statin Dosing Therapy Reference: STATIN DOSE THERAPY REFERENCE: * Patients > 75 years receive moderate or high dose statin therapy. * Patients 75 years or YOUNGER should receive HIGH intensity statin dose unless contraindicated. You will be required to document reason for non-treatment if statin daily dose does not meet guidelines. HIGH DOSE STATIN THERAPY DAILY Atorvastatin > than or = to 40 mg Rosuvastatin > than or = to 20 mg Amlodipine + Atorvastatin > than or = to 2.5/40 mg Ezetimibe + Simvastatin 10/80 mg Simvastatin 80mg Discharge Plan Admission Admit Date/Time: 01/15/24 13:36 Primary Reason for Your Visit: confusion. UTI. Attending Provider: Neo Schulz Primary Care Provider: Sayda Peace Consulting Providers: Gilmer Soares; Sarah Milan; Vidhya Pink; Ashok Dickinson; Chele Jones; Clarke Pearson; FREIDA HERNANDEZ; Andra Rodríguez; Brea Reyes; Jermain Kincaid; Harriet Garcia; Chelsi Mejia Discharge Orders/Prescriptions Prescriptions: New cephalexin 500 mg Capsule 500 mg PO Q8 Qty: 15 0RF quetiapine [Seroquel] 25 mg tablet 25 mg PO QHS Qty: 30 0RF Continued lisinopril 10 MG tablet 10 mg PO DAILY sertraline 50 MG tablet 50 mg PO DAILY levothyroxine 50 mcg tablet 50 mcg PO DAILY rivastigmine tartrate 3 mg capsule 3 mg PO .qd Referrals / Follow Up: Sayda Peace MD [Primary Care Provider] - Within 2 Weeks Disposition Disposition (needs filled in before D/C Order can be placed): Home, Self Care Charges/Coding Visit Charges Inpatient E&M: 70452 Disch Hosp >30min
[2024-01-17 09:00] LABS: Vitamin B12 302 pg/mL (211-911)
== END 2024-01-16 13:33 | disposition home or self-care (01) | DRG 56 ==
LOC: ED 18:48 → PCU 21:17
PROVIDERS: Admitting Provider Internal Medicine; Emergency Provider Emergency Medicine; PCP Internal Medicine
DX: G30.9 Alzheimer's disease, unspecified (principal); G93.41 Metabolic encephalopathy; F02.811 Dementia in other diseases classified elsewhere, unspecified severity, with agitation; N39.0 Urinary tract infection, site not specified; N18.32 Chronic kidney disease, stage 3b; D63.1 Anemia in chronic kidney disease; E03.9 Hypothyroidism, unspecified; I12.9 Hypertensive chronic kidney disease with stage 1 through stage 4 chronic kidney disease, or unspecified chronic kidney disease; F32.A Depression, unspecified; D50.9 Iron deficiency anemia, unspecified; F41.9 Anxiety disorder, unspecified; Z79.890 Hormone replacement therapy; Z79.899 Other long term (current) drug therapy; Z87.891 Personal history of nicotine dependence; Z23 Encounter for immunization
CPT/HCPCS: 36415; 70450; 70496; 70498; 70551; 71045; 80048; 80053; 80061; 81001; 82607; 82728; 82746; 82962; 83036; 83540; 83550; 83735; 84439; 84443; 84484; 85025; 85610; 85730; 87077; 87086; 87088; 87186; 90662; 92523; 92526; 93005; 93306; 94762; 95819; 97129; 97162; 97166; 99285; J7050; Q9967; A4216; J2916

== ENCOUNTER 2024-04-12 16:13 | Emergency (ER) | payer MEDICARE, OTHER, SELFPAY ==
[2024-04-12 16:17] VITALS: BP 150/102; PULSE 66; RESP 18; TEMP 36.3; O2SAT 96; BMI 17.6
--- NOTE | 2024-04-12 17:03 | CT_ITS ---
STUDY: CT BRAIN WITHOUT CONTRAST REASON FOR EXAM: Female, 88 years old. head trauma RADIATION DOSAGE (If Supplied By Facility): CTDIvol = ( 44.99 ) mGy, DLP = ( 779.24 ) mGycm TECHNIQUE: Transaxial CT imaging of the brain was performed without administration of intravenous contrast material. Individualized dose optimization techniques were used for this CT. COMPARISON: CT scan 01/14/2024, MRI 01/15/2024 FINDINGS: Normal soft tissue structures. Normal calvarium. There is mild cerebral atrophy with widening of the extra-axial spaces and ventricular dilatation. There are areas of decreased attenuation within the white matter tracts of the supratentorial brain, consistent with microvascular disease changes. There are small punctate calcifications of the basal ganglia which are seen in the aging brain as a normal variant. There are bilateral lacunar infarcts of the basal ganglia, stable. Normal brainstem. There is mild cerebellar atrophy. There is no intracranial hemorrhage. There are no findings of an acute ischemic infarction. Normal visualized paranasal sinuses. CT/Brain/Head without Contrast IMPRESSION: Chronic involutional changes of the brain. No change or acute abnormality. Electronically Signed: Andry Deluna MD at 17:42 EST ,
--- NOTE | 2024-04-12 17:03 | CT_ITS ---
STUDY: CT CERVICAL SPINE WITHOUT CONTRAST REASON FOR EXAM: Female, 88 years old. head trauma RADIATION DOSAGE (If Supplied By Facility): CTDIvol = ( 12.30 ) mGy, DLP = ( 228.13 ) mGycm TECHNIQUE: High resolution transaxial imaging was performed without contrast material. Sagittal and coronal images were reconstructed. Individualized dose optimization techniques were used for this CT. COMPARISON: None FINDINGS: No definite acute fracture/dislocation. The cervical junction is intact. C1-C2 articulation is intact. Curvature is within normal limits. There is normal alignment. Facet joints are intact at all levels bilaterally. No jumped facets. There is multilevel spondyloarthropathy. Multilevel degenerative disc disease seen. Multilevel loss of disc height. Multilevel posterior marginal osteophytes and disc bulges. Multilevel neural foraminal narrowing. Multilevel narrowing of the spinal canal. Visualized paraspinal soft tissues and structures are unremarkable. CT/Spine Cervical without Contras IMPRESSION: There is no definite acute fracture/dislocation. Degenerative changes. Electronically Signed: Andry Deluna MD at 17:48 EST ,
--- NOTE | 2024-04-12 17:06 | EDS_ITS ---
HPI History of Present Illness Chief Complaint: Lower Extremity Injury Informant: family (Daughter present in the room. Patient very limited informant due to dementia.) Onset/Context/Timing Onset: Today Current Severity: Moderate Maximum Severity: Moderate Narrative Narrative: 88-year-old female history of dementia and gout. She fell today injuring her left hip. He has been unable to stand or walk since the fall is happened about an hour ago. When she fell struck her head and has some dried blood on her left scalp. Denies any neck pain. No LOC. Reportedly no blood thinners. No recent illness nor recent admission. Patient is a limited informant due to her dementia. Daughter is present in the room and is providing the information. Prior similar symptoms: No Recent Illness/Hospitalization: No PFSH PFSH Medical History Gout Hypothyroid Hypertension Alzheimer disease Depression Hypertension Hypothyroid Home Medications ?Medication ?Instructions ?Recorded ?Last Taken ?Type lisinopril 10 mg tablet 10 mg PO DAILY blood pressure 01/08/13 01/13/24 22:41 History sertraline 50 mg tablet 50 mg PO DAILY mental health 12/08/19 12/08/19 History levothyroxine 50 mcg tablet 50 mcg PO DAILY disorder of 01/14/24 01/13/24 22:00 History thyroid gland rivastigmine tartrate 3 mg capsule 3 mg PO .qd memory 01/14/24 Unknown History allopurinol 100 mg tablet 100 mg PO DAILY gout pain 04/12/24 Unknown History rivastigmine tartrate 6 mg capsule 6 mg PO BID 04/12/24 Unknown History Allergy/AdvReac Type Severity Reaction Status Date / Time ciprofloxacin (From Cipro) Allergy Hives Verified 04/12/24 16:14 ciprofloxacin HCl (From Allergy Hives Verified 04/12/24 16:14 Cipro) amoxicillin trihydrate (From AdvReac Abd Verified 04/12/24 16:14 Augmentin) cramps/diarrhea potassium clavulanate (From AdvReac Abd Verified 04/12/24 16:14 Augmentin) cramps/diarrhea Social History Smoking Status: Former smoker ROS ROS ED ROS Narrative No recent illness according to the daughter. No LOC today. Limited ROS due to patient's dementia. Constitutional Constitutional ED: Denies chills or fever(s) Eyes Eyes: Denies blurry vision ENT ENT ED: Denies ear pain Cardiovascular Cardiovascular: Denies chest pain Respiratory/Chest Respiratory/Chest: Denies cough Gastrointestinal Gastrointestinal: Denies abdominal pain Genitourinary Genitourinary ED: Denies dysuria Musculoskeletal Musculoskeletal: Denies arthralgias Integumentary Denies abscess Neurologic Neurologic: Denies headache(s) Psychiatric Psychiatric: Denies anxiety Endocrine Endocrinology: Denies cold intolerance Hematologic/Lymphatic Hematologic/Lymphatic: Reports none Allergic/Immunologic Allergic/Immunologic ED: Denies mouth swelling, tongue swelling or urticaria EXAM Physical Exam Narrative Exam Narrative: 88-year-old female lying in bed. Daughter at bedside. Vital signs are stable afebrile. H EENT exam pupils round react light. Poor dentition. No facial trauma. She has some dried blood on the left lateral scalp behind her ear. No active bleeding. No large laceration. This will need to be cleaned to be reassessed. No hematoma on her scalp. Neck nontender. Trachea midline. Back nontender. No spinal tenderness. No bruising. Trachea midline. Lungs clear to auscultation bilaterally. Chest wall ribs nontender. Heart regular rhythm rate about 65 no murmur. Pelvic girdle intact. Left hip shortened and rotated. Pain with passive range of motion. Left lower leg, knee ankle and foot nontender. Right lower extremity nontender. No shortening or rotation. Upper extremities are nontender. 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 Neurologically she is awake. She has dementia and is confused. According to her daughter this is around her baseline. Const Vital Signs: 04/12/24 16:17 04/12/24 17:55 Temperature 97.3 F L Temperature Source Oral Pulse Rate 66 Respiratory Rate 18 Blood Pressure 150/102 H 138/82 H Blood Pressure Mean 118 100 Pulse Ox 96 Oxygen Delivery Method Room Air Positive well nourished and well developed; Negative for obese, cachectic or contractures General Appearance ED: well developed and NAD; Negative for cachectic, contractures, cyanotic, diaphoretic or pallor Nutritional Appearance: Negative for cachectic or obese HEENT Reports moist mucous membranes HEENT Narrative: Left scalp dried blood. No gaping wound. Will need to be cleaned and reassess. No hematoma. trauma Eyes PERRL and EOMs intact bilaterally General Eye ED: Negative for pale conjunctiva or scleral icterus Neck no lymphadenopathy, supple and no JVD General: Negative for tenderness Lymph Lymphatic: Negative for other Chest Wall inspection of chest normal and palpation of chest normal Resp normal respiratory effort and clear to auscultation bilaterally Effort and Inspection: Negative for retractions, pain with movement or other Auscultation: Negative for rales, rhonchi, wheezes or diminished lung sounds Cardio regular rate, regular rhythm, S1 normal heart sound, S2 normal heart sound and no murmurs Palpation: Negative for palpable S3 or palpable S4 Rate: Negative for bradycardia, tachycardic or other Rhythm: Negative for abnormal rhythm GI normal to inspection, nondistended, normoactive bowel sounds, non-tender, non- distended and no masses Auscultation: normoactive bowel sounds Palpation: soft; Negative for tender, guarding, mass or rebound tenderness present Back/Spine no CVA tenderness General Back: Negative for CVA tenderness Cervical Spine: Negative for cervical spine tenderness Thoracic Spine / Upper Back: Negative for thoracic spinal tenderness or paraspinal muscle tenderness Lumbar Spine / Lower Back: Negative for lumbar spinal tenderness Extremity Negative for normal to inspection Extremity Narrative: Left lower extremity tender. Short and rotated. Pain with passive range of motion. No gross bony deformity. Lower leg nontender. Right lower extremity nontender. Upper extremities nontender. General Extremety ED: Yes tenderness; Negative for edema General Extremity: Negative for edema Neuro No oriented x3 Neuro Narrative: Confused. History of dementia. Per daughter baseline. Sensorium / Orientation: alert Motor Exam: general weakness Psych mental status grossly normal Attitude: No agitated Mood & Affect: Negative for depressed, anxious or tearful Skin no rashes or lesions noted and No no wounds Skin Narrative: Left scalp suspect laceration. Dried blood. General Skin Exam: Negative for jaundice or pallor Rashes: No rashes noted Trauma: Negative for abrasion Wounds: Negative for wounds noted MDM MDM MDM Narrative Medical decision making narrative: 88-year-old female fell clinically looks like she has a fracture of the left hip. X-ray being obtained. Due to she hit her head she is also getting a head neck CT. Screening labs. Morphine for pain. Repeat exam at 5:55 PM. I instructed the patient's daughter of her left hip fracture. I spoke to her orthopedic physician and he was unavailable to do the surgery. There is currently no orthopedic physician on-call for no doc. I am attempting to transfer the patient if there is an open bed locally. Patient is currently resting comfortably after being given the initial dose of morphine. I spoke to [facility] Transfer line. It was an ER to ER transfer. I spoke to the ER physician patient's excepted. Were awaiting a ambulance. Due to the elevated white count we will place a Roblero catheter and send a urinalysis. I will have the CT and films electronically sent up to [facility]. I have discussed all this with the patient's daughter at bedside. Patient remained stable with stable vital signs. Urinalysis came back positive for nitrates, 10-25 white cells and 3+ bacteria. Urine culture was sent. She was started on IV Rocephin. History & Record Review Discussion w/independent historian: Patient and Family Lab Data Attestation: I reviewed the patient's lab results. Lab results narrative: CBC shows a white count 22.7. H&H is 7.5 and 25 which is she has a chronic baseline anemia of around 7-8. Platelets 245. Due to the elevated white count I am also obtaining a UA. Roblero catheter replaced. She has no fever. No recent illness and unaware of. Labs: Laboratory Results - last 24 hr 04/12/24 04/12/24 17:46 18:00 WBC 22.7 H RBC 3.45 L Hgb 7.5 L Hct 25.5 L MCV 73.9 L MCH 21.7 L MCHC 29.4 L RDW Std Deviation 49.9 H RDW Coeff of Sol 18.9 H Plt Count 245 MPV 11.0 Immature Gran % (Auto) 0.800 Neut % (Auto) 76.8 H Lymph % (Auto) 3.4 L [place] % (Auto) 7.1 Eos % (Auto) 11.7 H Baso % (Auto) 0.2 Absolute Neuts (auto) 17.4 H Absolute Lymphs (auto) 0.78 L Nucleated RBC % 0 Differential Comment SCANNED Diff Path Review May foll Hypochromasia 3+ Ovalocytes RARE Crenated Cell 1+ Schistocytes RARE Sodium 142 Potassium 3.5 Chloride 112 H Carbon Dioxide 18.0 L Anion Gap 12 BUN 25 H Creatinine 1.25 H Estim Creat Clear Calc 24.78 Est GFR (MDRD) Af Amer 52 L Est GFR (MDRD) Non-Af 43 L BUN/Creatinine Ratio 20.0 Glucose 146 H Calcium 8.1 L Urine Color Yellow Urine Clarity Clear Urine pH 6.0 Ur Specific [place] 1.020 Urine Protein 15 H Urine Glucose (UA) Normal Urine Ketones Negative Urine Occult Blood Negative Urine Nitrite Positive H Urine Bilirubin Negative Urine Urobilinogen Normal Ur Leukocyte Esterase 500 H Urine RBC 0 SEEN Urine WBC 10-25 SEEN Ur Squamous Epith Cells 0-5 SEEN Urine Bacteria 3+ Urine Mucus 0 SEEN Radiography Chest X-Ray - ED: 1 View, Read by ED Physician, Read by Radiologist, Heart, Lungs, Mediastinum, Bony Structures, No Acute Disease and Chronic Changes Diagnostic Testing: Clinical Impression(s) from Imaging Studies Brain CT 04/12/24 17:03 IMPRESSION: Chronic involutional changes of the brain. No change or acute abnormality. Electronically Signed: Andry Deluna MD at 17:42 EST Reading Location ID and State: [facility] / [place] , Service support , Cervical Spine CT 04/12/24 17:03 IMPRESSION: There is no definite acute fracture/dislocation. Degenerative changes. Electronically Signed: Andry Deluna MD at 17:48 EST Reading Location ID and State: [facility] / [place] , Service support , Chest X-Ray 04/12/24 17:11 IMPRESSION: COPD. No acute chest disease. Electronically Signed: Andry Deluna MD at 17:29 EST Reading Location ID and State: [facility] / [place] , Service support , Hip/Pelvis X-Ray 04/12/24 17:11 IMPRESSION: There is a highly comminuted intratrochanteric fracture of the left femur with displaced fracture fragments and impaction. Electronically Signed: Andry Deluna MD at 17:33 EST , Chest x-ray, 1 view, shows no acute abnormality. Normal cardiac silhouette. Normal lung worthy. Chronic changes. Interpreted by myself and the radiologist. Pelvis left hip shows an intertrochanteric comminuted left hip fracture. Interpreted both by myself and the radiologist. 3 views. Procedures Lacerations Left lateral scalp laceration puncture wound. 1 cm. Cleaned with Shur-Clens. Washed with saline. Discussed with the family we withheld: Length: 0.5 in Depth: Sub Q Shape: Linear Prep: Shure-Clens Laceration repair: Irrigated and Skin sutures Number of Sutures/[place]: 1 Suture Information: Ethilon and 4-0 Comment: Left lateral scalp laceration. It was small about 1 cm in length. Was cleaned using Shur-Clens. Washed and irrigated with saline. I discussed with family and because of such a small wound was only taken 1 stitch we withheld lidocaine. Patient tolerated very well. She had 1 simple interrupted 4-0 Ethilon suture placed. She tolerated well. Proper hemostasis wound closure obtained. No bleeding. No hematoma. Last tetanus shot was less than a year ago according the family. Discharge Plan Triage Chief Complaint: Lower Extremity Injury ED Provider: Tony Lancaster Dx/Rx/DC Orders Clinical Impression: Fall, Closed fracture of left hip, History of dementia, Head injury, Leukocytosis, Chronic anemia, Chronic renal insufficiency, Urinary tract infection, Laceration of scalp Prescriptions: No Action lisinopril 10 MG tablet 10 mg PO DAILY sertraline 50 MG tablet 50 mg PO DAILY levothyroxine 50 mcg tablet 50 mcg PO DAILY rivastigmine tartrate 3 mg capsule 3 mg PO .qd allopurinol 100 mg tablet 100 mg PO DAILY rivastigmine tartrate 6 mg capsule 6 mg PO BID Primary Care Provider: Sayda Peace Referrals: Sayda Peace MD [Primary Care Provider] - Print Language: French Disposition Disposition: [facility]
--- NOTE | 2024-04-12 17:11 | RAD_ITS ---
STUDY: X-RAY - PELVIS AND LEFT HIP REASON FOR EXAM: Female, 88 years old. fall TECHNIQUE: 2 views of the pelvis and hip. COMPARISON: None. FINDINGS: There is a non-specific bowel gas pattern. Normal visualized soft tissue structures. There is a highly comminuted intratrochanteric fracture of the left femur with displaced fracture fragments and impaction. Mild angulation. No dislocation. Normal bilateral iliac wings, sacroiliac joints and visualized sacrum. Normal bilateral superior and inferior pubic rami. Normal pubic symphysis. Normal bilateral ischial tuberosities. RAD/HIP, UNI W/ Pelvis 2-3 Views IMPRESSION: There is a highly comminuted intratrochanteric fracture of the left femur with displaced fracture fragments and impaction. Electronically Signed: Andry Deluna MD at 17:33 EST ,
--- NOTE | 2024-04-12 17:11 | RAD_ITS ---
STUDY: X-RAY CHEST REASON FOR EXAM: Female, 88 years old. PRE OP TECHNIQUE: Single AP portable view of the chest. COMPARISON: 01/14/2024. FINDINGS: There is hyperinflation of the lungs consistent with chronic obstructive lung disease (COPD). No infiltrates or effusions. There is no demonstrated pleural abnormality. Normal size heart. Normal mediastinum and hao. Normal visualized pulmonary arteries. There is atherosclerotic calcification of the aortic arch with tortuosity. There is a dextroscoliosis of the thoracic spine. Normal visualized ribs, clavicles, and shoulders. There is no demonstrated abnormality of the visualized soft tissue structures of the upper abdomen. RAD/Chest 1 View IMPRESSION: COPD. No acute chest disease. Electronically Signed: Andry Deluna MD at 17:29 EST ,
[2024-04-12] MEDS: Ondansetron 4 MG/2 ML Vial IV (17:40)
[2024-04-12] MEDS: Morphine 4 MG/ML Syringe IV ×2 (17:41→21:21)
[2024-04-12 17:55] VITALS: BP 138/82
[2024-04-12 18:02] LABS: Absolute Lymphocyte Count 0.78 X10^3/uL (0.83-4.51); Absolute Neutrophil Count 17.4 X10^3/uL (2.0-7.7); Basophil# 0.04 X10^3/uL; Basophil% 0.2 % (0-1); Eosinophil# 2.65 X10^3/uL; Eosinophils% 11.7 % (0-5); Hematocrit 25.5 % (37-47); Hemoglobin 7.5 g/dL (12.0-15.0); Lymphocyte # 0.78 X10^3/ul (0.83-4.51); Lymphocyte % 3.4 % (19-41); Mean Corp Hgb Conc 29.4 g/dL (32-36); Mean Corpuscular Hgb 21.7 pg (27.0-32.0); Mean Corpuscular Volume 73.9 fL (81-99); Monocyte% 7.1 % (0-10); NRBC Flagged by Analyzer 0 % (0-5); Neutrophil # 17.42 X10^3/uL (2.7-7.7); Neutrophil % 76.8 % (47-70); POSITIVE DIFFERENTIAL YES; POSITIVE MORPHOLOGY YES; Platelet Count 245 K/mm3 (150-450); RBC Distribution Width CV 18.9 % (11.6-14.6); RBC Distribution Width SD 49.9 fl (35.1-43.9); Red Blood Count 3.45 M/mm3 (4.2-5.4); White Blood Count 22.7 K/mm3 (4.4-11.0)
[2024-04-12 18:04] LABS: Differential Indicated SCAN CRITERIA MET
[2024-04-12 18:20] LABS: Anion Gap 12 (5-15); BUN 25 mg/dL (7-18); Calcium,Total 8.1 mg/dL (8.5-10.1); Chloride 112 mmol/L (98-107); Creatinine, Serum 1.25 mg/dL (0.55-1.02); EST Glomerular Filtration Rate 43 mL/min (>60); Est Glom Filt Rate - Afr Amer 52 mL/min (>60); Estimated Creatinine Clearance 24.78 ml/min; Glucose 146 mg/dL (74-106); Potassium 3.5 mmol/L (3.5-5.1); Sodium Level 142 mmol/L (136-145)
[2024-04-12 18:26] LABS: Differential Comment SCANNED; Hypochromasia 3+
[2024-04-12 18:27] LABS: Crenated RBC 1+; Ovalocyte RARE; Schistocytes RARE
--- NOTE | 2024-04-12 18:39 | ED.RN ---
CALLED [facility] TO ARRANGE TRANSPORT FOR PT TO [facility] ED, SPOKE TO ATUL. ETA IS 2 HOURS ([id number]).
[2024-04-12 18:57] LABS: Mucous, Urine 0 SEEN /hpf (<or=2+); Red Blood Cells-Urine 0 SEEN /hpf (0-5)
[2024-04-12 19:00] LABS: Color, Urine Yellow (Yellow); Glucose, Dipstick Normal (Normal); Ketone-Dipstick Negative (Negative); Leukocyte Esterase-Dipstick 500 /ul (Negative); Nitrite-Dipstick Positive (Negative); Occult Blood-Urine Negative /ul (Negative); Protein-Dipstick 15 mg/dl (Negative); Urine Bilirubin Dipstick Negative (Negative); Urine Clarity Clear (Clear); Urine Urobilinogen Normal (Normal)
[2024-04-12 19:20] LABS: Bacteria 3+ /hpf (None Seen); Squamous Epithelial Cells - UA 0-5 SEEN /hpf (5-10); White Blood Cells 10-25 SEEN /hpf (0-5)
[2024-04-12] MEDS: Ceftriaxone 1 GM/50 ML BAG IV (20:23)
--- NOTE | 2024-04-12 20:26 | CM.ED ---
Social Work SW met with patient daughter Paige. Paige stated that she had been spending the majority of her time with patient as patient has been living on her own. Paige stated that she feels patient will need skilled nursing care after hospitalization, however stated that her sister was HPOA and would be making those decision. Barney sister Jillian arrived in ER, Paige left when she arrived. SW met with patients daughter Jillian, who is HPOA. Daughter had questions regarding the process of getting patient into a jail after her hospitalization. SW reviewed SNF process with daughter. Daughter requested a list of SNFs to review, a list of snf?providers including quality and resource use data and consistent with the patient's preferred geographic region, medical needs, and insurance network was created in [employer] Guide and given to daughter. No further needs identified at this time. Anaya Foote, COLD PRESS LOADER, TEST PILOT
--- NOTE | 2024-04-12 20:47 | ED.RN ---
[facility]ed [facility] to get an updated eta, dispatch stated it would be another 90 min-2 hours due to having another trip in front of pt. ([phone])
[2024-04-12 22:00] VITALS: BP 138/89; PULSE 96; RESP 16; O2SAT 96
[2024-04-13 14:27] LABS: Pathologist Review Reviewed
== END 2024-04-13 00:12 | disposition short-term general hospital (02) ==
PROVIDERS: Emergency Provider Emergency Medicine; PCP Internal Medicine; Visit Provider Emergency Medicine
DX: S01.01XA Laceration without foreign body of scalp, initial encounter (principal); S72.002A Fracture of unspecified part of neck of left femur, initial encounter for closed fracture; G30.9 Alzheimer's disease, unspecified; F02.80 Dementia in other diseases classified elsewhere, unspecified severity, without behavioral disturbance, psychotic disturbance, mood disturbance, and anxiety; J44.9 Chronic obstructive pulmonary disease, unspecified; I12.9 Hypertensive chronic kidney disease with stage 1 through stage 4 chronic kidney disease, or unspecified chronic kidney disease; Z87.891 Personal history of nicotine dependence; N18.9 Chronic kidney disease, unspecified; Z79.899 Other long term (current) drug therapy; D72.829 Elevated white blood cell count, unspecified; N39.0 Urinary tract infection, site not specified; D64.9 Anemia, unspecified; S09.90XA Unspecified injury of head, initial encounter; W19.XXXA Unspecified fall, initial encounter
CPT/HCPCS: 12001; 51702; 70450; 71045; 72125; 73502; 80048; 81001; 85025; 87077; 87086; 87088; 87186; 96365; 96375; 96376; 99285; A4216; J2405

== ENCOUNTER 2024-04-27 12:46 | Emergency (ER) | payer MEDICARE, SELFPAY ==
[2024-04-27 12:47] VITALS: BP 183/88; PULSE 85; RESP 16; TEMP 36.8; O2SAT 96; BMI 18.3
--- NOTE | 2024-04-27 13:00 | ED.RN ---
EMS STATES NURSE ON [facility] SAID PT IS NEW TO [facility] AND DID NOT HAVE ANY HELPFUL INFO FOR THEM WHEN ASKING ABOUT PTS BASELINE. NURSE CALLED REPORT TO CHARGE HERE. THIS NURSE IS ABLE TO HAVE PT OPEN EYES AND FOLLOW COMMANDS WITH PAINFUL STIMULI;STERNAL RUB. PUPILS LOOK PIN POINT. FAMILY TOLD CHARGE NURSE THIS HAS HAPPENED ONE OTHER TIME AND STATES NOTHING WAS FOUND. PTS VS ARE STABLE, WITH BP SLIGHTLY ELEVATED. MADE AWARE.
[2024-04-27 14:00] VITALS: BP 190/89; PULSE 71; RESP 16; TEMP 36.8; O2SAT 99
--- NOTE | 2024-04-27 14:13 | RAD_ITS ---
EXAM: XR Chest, 1 View CLINICAL INDICATION: TECHNIQUE: Frontal view of the chest. COMPARISON: No relevant prior studies available. FINDINGS: LUNGS AND PLEURAL SPACES: Bibasilar atelectasis or pneumonia. No pneumothorax. HEART: Unremarkable. No cardiomegaly. MEDIASTINUM: Unremarkable. Normal mediastinal contour. BONES/JOINTS: Unremarkable. No acute fracture. RAD/Chest 1 View (Portable) IMPRESSION: Bibasilar atelectasis or pneumonia. [facility]
--- NOTE | 2024-04-27 14:20 | EDS_ITS ---
HPI History of Present Illness Chief Complaint: Unresponsive Informant: patient Narrative Narrative: Patient is an 88-year-old female with history of dementia, hypertension, hypothyroid and recent left hip fracture presenting for [facility] after an episode of responsiveness. Per nursing report they were not able to get her to respond to her she would only respond to sternal rub. Upon arrival to the ER patient was only responsive to painful stimuli and not talking. She then started to open her eyes and follow commands. She then started talking. She is since returned to her baseline. Daughters at the bedside who states she is acting normally for her now. Her daughter also states that she has had episodes of doing this in the past and sometimes it happens when she is not happy with what is going on around her. She did have 1 fall out of bed at her nursing facility but no injuries were reported. She is not any blood thinners. No other report of any recent illness. Patient currently is only seen that she is hungry. [facility] Medical History Gout Hypothyroid Hypertension Alzheimer disease Depression Hypertension Hypothyroid Home Medications ?Medication ?Instructions ?Recorded ?Last Taken ?Type lisinopril 10 mg tablet 10 mg PO DAILY blood pressur e 01/08/13 01/13/24 22:41 History sertraline 50 mg tablet 50 mg PO DAILY mental health 12/08/19 12/08/19 History levothyroxine 50 mcg tablet 50 mcg PO DAILY disorder o f 01/14/24 01/13/24 22:00 History thyroid gland rivastigmine tartrate 3 mg capsule 3 mg PO .qd memory 01/14/24 Unknown History allopurinol 100 mg tablet 100 mg PO DAILY gout pain Unknown History rivastigmine tartrate 6 mg capsule 6 mg PO BID 5 Unknown History Held on 04/12/24. Instructions: see script doxycycline hyclate 100 mg tablet 100 mg PO BID #20 ta bs 04/27/24 Unknown Rx Allergy/AdvReac Type Severity Reaction Status Date / Time ciprofloxacin (From Cipro) Allergy Hives Verified 04/27/24 13:00 ciprofloxacin HCl (From Allergy Hives Verified 04/27/24 13:00 Cipro) amoxicillin trihydrate (From AdvReac Abd Verified 04/27/24 13:00 Augmentin) cramps/diarrhea potassium clavulanate (From AdvReac Abd Verified 04/27/24 13:00 Augmentin) cramps/diarrhea Social History Smoking Status: Former smoker ROS ROS ED Review of Systems ROS Unobtainable: due to mental status EXAM Physical Exam Const Vital Signs: 04/27/24 12:47 04/27/24 12:59 04/27/24 14:00 Temperature 98.3 F 98.2 F Temperature Source Oral Oral Pulse Rate 85 71 Respiratory Rate 16 16 Respiratory Effort Normal Respiratory Pattern Normal Blood Pressure 183/88 H 190/89 H Blood Pressure Mean 119 122 Pulse Ox 96 99 Oxygen Delivery Method Room Air Room Air 04/27/24 14:41 04/27/24 15:00 04/27/24 16:00 Temperature 98.6 F Temperature Source Oral Pulse Rate 71 80 95 Respiratory Rate 16 16 16 Respiratory Effort Respiratory Pattern Blood Pressure 190/89 H 163/89 H 120/87 H Blood Pressure Mean 122 113 98 Pulse Ox 99 96 100 Oxygen Delivery Method Room Air Room Air Room Air Positive well nourished and well developed General Appearance ED: well developed and NAD HEENT Reports moist mucous membranes Eyes PERRL Neck supple and no JVD Neck Narrative: No meningeal signs Chest Wall inspection of chest normal and palpation of chest normal Resp normal respiratory effort Resp Narrative: Mildly coarse breath sounds at the bases Cardio regular rate, regular rhythm and no murmurs GI normal to inspection, nondistended, normoactive bowel sounds and non-tender Extremity normal to inspection Extremity Narrative: Decreased range of motion of the left hip from prior surgery General Extremety ED: Negative for edema General Extremity: Negative for edema Neuro Neuro Narrative: Patient at her baseline. Oriented to self only. Sensorium / Orientation: alert and orientation impaired Motor Exam: general weakness Psych mental status grossly normal Skin no rashes or lesions noted MDM MDM MDM Narrative Medical decision making narrative: Patient evaluated after an episode of mental status change with decreased responsiveness. Patient returns to baseline while in the emergency room. Differential includes hypoglycemia, intracranial hemorrhage, seizure, encephalopathy, medication side effect, behavioral disturbance, sepsis, infection. Workup including CT of the brain, chest x-ray, CBC, CMP and urinalysis is obtained. Patient has a mild leukocytosis with a white blood cell count of 11.1 with a left shift and it is mildly uptrending. She has a stable and uptrending hemoglobin of 9.1. BMP normal. Urinalysis not consistent with infection. Chest x-ray reviewed by radiology is concerning for atelectasis versus bibasilar pneumonia. I do not appreciate pneumonia on my view however given the patient does have a left shift with new leukocytosis will cover with doxycycline. She is 100% on room air and I do not think requires admission for this. Will be discharged back to [facility]. Patient's daughters at the bedside is agreeable this plan of care. Patient's remains hemodynamically stable in the emergency room and is back to baseline. Given the report from her daughter that the patient does this from time to time I do not think she requires further admission for evaluation of this episode of mental status change. Is given return precautions to the emergency room. Lab Data Attestation: I reviewed the patient's lab results. Labs: Laboratory Results - last 24 hr 04/27/24 04/27/24 14:31 14:34 WBC 11.1 H RBC 3.74 L Hgb 9.1 L Hct 31.0 L MCV 82.9 MCH 24.3 L MCHC 29.4 L RDW Std Deviation 66.7 H RDW Coeff of Sol 22.7 H Plt Count 409 MPV 10.4 Immature Gran % (Auto) 1.100 H Neut % (Auto) 82.4 H Lymph % (Auto) 9.2 L Mccracken % (Auto) 6.6 Eos % (Auto) 0.4 Baso % (Auto) 0.3 Absolute Neuts (auto) 9.2 H Absolute Lymphs (auto) 1.02 Nucleated RBC % 0 Plt Morphology Comment LARGE Polychromasia 1+ Anisocytosis 2+ Ovalocytes RARE [place] Cells 1+ Bite Cells RARE Sodium 141 Potassium 3.5 Chloride 111 H Carbon Dioxide 22.0 Anion Gap 8 BUN 19 H Creatinine 1.04 H Estim Creat Clear Calc 31.04 Est GFR (MDRD) Af Amer 64 Est GFR (MDRD) Non-Af 53 L BUN/Creatinine Ratio 18.3 Glucose 98 Calcium 8.2 L Urine Color Yellow Urine Clarity Clear Urine pH 6.0 Ur Specific Osteen 1.020 Urine Protein 15 H Urine Glucose (UA) Normal Urine Ketones Negative Urine Occult Blood 25 H Urine Nitrite Negative Urine Bilirubin Negative Urine Urobilinogen 1 H Ur Leukocyte Esterase 25 H Urine RBC 0-5 SEEN Urine WBC 0-5 SEEN Ur Squamous Epith Cells Not Reportable Ur Transition Epith Cell 0-5 SEEN Urine Bacteria 0 SEEN Urine Mucus 0 SEEN Radiography Diagnostic Testing: Clinical Impression(s) from Imaging Studies Chest X-Ray 04/27/24 14:13 IMPRESSION: Bibasilar atelectasis or pneumonia. Reading Location: [facility] Brain CT 04/27/24 14:50 IMPRESSION: 1. Generalized brain atrophy. 2. Small vessel ischemic/degenerative changes. 3. No acute intracranial hemorrhage, midline shift or mass effect. If symptoms persist, further evaluation with MRI is recommended. Reading Location: [facility] Discharge Plan Triage Chief Complaint: Unresponsive ED Provider: Alexandrea Smith Dx/Rx/DC Orders Clinical Impression: Pneumonia, Transient alteration of awareness Instructions: ED ALOC, ED Pneumonia (Adult) Prescriptions: New doxycycline hyclate 100 mg tablet 100 mg PO BID Qty: 20 0RF No Action lisinopril 10 MG tablet 10 mg PO DAILY sertraline 50 MG tablet 50 mg PO DAILY levothyroxine 50 mcg tablet 50 mcg PO DAILY rivastigmine tartrate 3 mg capsule 3 mg PO .qd allopurinol 100 mg tablet 100 mg PO DAILY rivastigmine tartrate 6 mg capsule 6 mg PO BID Primary Care Provider: Sayda Peace Referrals: Sayda Peace MD [Primary Care Provider] - Activity Restrictions/Additional Instructions: There is a questionable pneumonia on her chest x-ray. Ainsley's oxygen has been n ormal in the emergency room but she does have a slight increase of her white blood cell count. Will treat her empirically with doxycycline. Her mentation returned to baseline here. Her workup is otherwise normal. The exact cause of episodes not clear but this time she can be discharged back. Print Language: Divehi Disposition Disposition: Longterm Facility Discharge Location: [facility]
[2024-04-27 14:41] VITALS: BP 190/89; PULSE 71; RESP 16; O2SAT 99
--- NOTE | 2024-04-27 14:50 | CT_ITS ---
EXAM: CT Head Without Intravenous Contrast CLINICAL INDICATION: TECHNIQUE: Axial computed tomography images of the head/brain without intravenous contrast. This CT exam was performed using one or more of the following dose reduction techniques: automated exposure control, adjustment of the mA and/or kV according to patient size, and/or use of iterative reconstruction technique. COMPARISON: No relevant prior studies available. FINDINGS: BRAIN AND EXTRA-AXIAL SPACES: The cerebral and cerebellar sulci are prominent consistent with brain atrophy. Areas of decreased attenuation in the deep cerebral white matter are consistent with small vessel ischemic/degenerative changes. No acute intracranial hemorrhage, midline shift or mass effect. If symptoms persist, further evaluation with MRI is recommended. BONES/JOINTS: Unremarkable. No acute fracture. SOFT TISSUES: Unremarkable. SINUSES: Unremarkable as visualized. No acute sinusitis. MASTOID AIR CELLS: Unremarkable as visualized. No mastoid effusion. CT/Brain/Head without Contrast IMPRESSION: 1. Generalized brain atrophy. 2. Small vessel ischemic/degenerative changes. 3. No acute intracranial hemorrhage, midline shift or mass effect. If symptoms persist, further evaluation with MRI is recommended. Reading Location: [facility]
[2024-04-27 14:52] LABS: Bacteria 0 SEEN /hpf (None Seen); Mucous, Urine 0 SEEN /hpf (<or=2+)
[2024-04-27 14:53] LABS: Absolute Lymphocyte Count 1.02 X10^3/uL (0.83-4.51); Absolute Neutrophil Count 9.2 X10^3/uL (2.0-7.7); Basophil# 0.03 X10^3/uL; Basophil% 0.3 % (0-1); Eosinophil# 0.04 X10^3/uL; Eosinophils% 0.4 % (0-5); Hemoglobin 9.1 g/dL (12.0-15.0); Lymphocyte # 1.02 X10^3/ul (0.83-4.51); Lymphocyte % 9.2 % (19-41); Mean Corp Hgb Conc 29.4 g/dL (32-36); Mean Corpuscular Hgb 24.3 pg (27.0-32.0); Mean Corpuscular Volume 82.9 fL (81-99); Mean Platelet Vol. 10.4 fl (6.2-12.0); Monocyte# 0.73 X10^3/uL; Monocyte% 6.6 % (0-10); NRBC Flagged by Analyzer 0 % (0-5); Neutrophil # 9.18 X10^3/uL (2.7-7.7); Neutrophil % 82.4 % (47-70); POSITIVE MORPHOLOGY YES; Platelet Count 409 K/mm3 (150-450); RBC Distribution Width CV 22.7 % (11.6-14.6); RBC Distribution Width SD 66.7 fl (35.1-43.9); Red Blood Count 3.74 M/mm3 (4.2-5.4); White Blood Count 11.1 K/mm3 (4.4-11.0)
[2024-04-27 14:59] LABS: Color, Urine Yellow (Yellow); Glucose, Dipstick Normal (Normal); Ketone-Dipstick Negative (Negative); Leukocyte Esterase-Dipstick 25 /ul (Negative); Nitrite-Dipstick Negative (Negative); Occult Blood-Urine 25 /ul (Negative); Protein-Dipstick 15 mg/dl (Negative); Urine Bilirubin Dipstick Negative (Negative); Urine Clarity Clear (Clear); Urine Urobilinogen 1 mg/dl (Normal)
[2024-04-27 15:00] VITALS: BP 163/89; PULSE 80; RESP 16; TEMP 37; O2SAT 96
[2024-04-27 15:00] LABS: Differential Indicated SCAN CRITERIA MET
[2024-04-27 15:10] LABS: Red Blood Cells-Urine 0-5 SEEN /hpf (0-5); Transitional Epithelial - Ur 0-5 SEEN /hpf (0-5); White Blood Cells 0-5 SEEN /hpf (0-5)
[2024-04-27 15:20] LABS: Anion Gap 8 (5-15); BUN 19 mg/dL (7-18); BUN/Creat Ratio 18.3 RATIO (10-20); Calcium,Total 8.2 mg/dL (8.5-10.1); Chloride 111 mmol/L (98-107); Creatinine, Serum 1.04 mg/dL (0.55-1.02); EST Glomerular Filtration Rate 53 mL/min (>60); Est Glom Filt Rate - Afr Amer 64 mL/min (>60); Estimated Creatinine Clearance 31.04 ml/min; Glucose 98 mg/dL (74-106); Potassium 3.5 mmol/L (3.5-5.1); Sodium Level 141 mmol/L (136-145)
[2024-04-27 16:00] VITALS: BP 120/87; PULSE 95; RESP 16; O2SAT 100
[2024-04-27 16:24] LABS: Bite Cell RARE; Platelet Morphology LARGE
[2024-04-27 16:25] LABS: Burr Cells 1+; Ovalocyte RARE; Polychromasia 1+
[2024-04-27 16:26] LABS: Anisocytosis 2+
[2024-04-27] MEDS: Doxycycline 100 MG CAPSULE PO (16:35)
== END 2024-04-27 17:45 | disposition skilled nursing facility (03) ==
PROVIDERS: Emergency Provider Emergency Medicine; PCP Internal Medicine; Visit Provider Emergency Medicine
DX: J18.9 Pneumonia, unspecified organism (principal); F03.90 Unspecified dementia, unspecified severity, without behavioral disturbance, psychotic disturbance, mood disturbance, and anxiety; I10 Essential (primary) hypertension; R40.4 Transient alteration of awareness; Z87.891 Personal history of nicotine dependence; E03.9 Hypothyroidism, unspecified
CPT/HCPCS: 70450; 71045; 80048; 81001; 85025; 99285; A4216

== ENCOUNTER 2024-05-01 14:37 | Observation (INO) | payer MEDICARE, SELFPAY ==
[2024-05-01] VITALS (7 sets, daily range): BP systolic 133–164; BP diastolic 65–89; PULSE 83–99; RESP 16–20; TEMP 36.2–36.8; O2SAT 92–99; BMI 18.6; BMI 18.5
--- NOTE | 2024-05-01 15:26 | EDS_ITS ---
HPI History of Present Illness Chief Complaint: Lower Extremity Injury Detail of Chief Complaint: Right femoral artery occlusion Informant: family Narrative Narrative: Patient brought to the emergency department by EMS from [facility] with concern for right femoral artery occlusion. Patient apparently had a fall 3 weeks ago and fractured her left hip and had surgery at [facility]. Patient was having pain in both legs and had arterial ultrasound performed today bilaterally and it showed superficial femoral artery proximal mid and distal completely occluded. Patient also had moderate to high stenosis throughout the left lower extremity and between the left popliteal and posterior tibial arteries. Patient has history of dementia and is a poor historian she denies pain currently. Currently on Lovenox for DVT prophylaxis. [facility] Medical History CKD (chronic kidney disease) stage 3, GFR 30-59 ml/min Scalp wound Pneumonia Transient alteration of awareness Gout Hypothyroid Hypertension Alzheimer disease Depression Hypertension Hypothyroid Home Medications ?Medication ?Instructions ?Recorded ?Last Taken ?Type lisinopril 10 mg tablet 10 mg PO DAILY blood pressur e 01/08/13 01/13/24 22:41 History sertraline 50 mg tablet 50 mg PO DAILY mental health 12/08/19 12/08/19 History levothyroxine 50 mcg tablet 50 mcg PO DAILY disorder o f 01/14/24 01/13/24 22:00 History thyroid gland rivastigmine tartrate 3 mg capsule 3 mg PO BID memory 01/14/24 Unknown History allopurinol 100 mg tablet 100 mg PO DAILY gout pain Unknown History acetaminophen 500 mg capsule 1,000 mg PO Q8H PRN fever or pain 05/01/24 Unknown History acetaminophen 650 mg rectal 650 mg IN Q4H PRN fever or pain 05/01/24 Unknown History suppository aluminum-magnesium hydroxide 225 30 ml PO Q4H PRN acid reflux 05/01/24 Unknown History mg-200 mg/5 mL oral suspension ascorbic acid (vitamin C) 500 mg 500 mg PO DAILY 05/01 Unknown History capsule bisacodyl 10 mg rectal suppository 10 mg IN DAILY PRN constipation 05/01/24 Unknown History (OneLAX Bisacodyl) cholecalciferol (vitamin D3) 1,250 50,000 unit PO QWEE K 05/01/24 Unknown History mcg (50,000 unit) capsule dextrose 40 % oral gel (Glutose-15) 15 g PO Q15M PRN h ypoglycemia 05/01/24 Unknown History doxycycline monohydrate 100 mg 100 mg PO BID 05/01/24 Unknown History capsule enoxaparin 30 mg/0.3 mL 30 mg subcut DAILY 05/01/24 Unknown History subcutaneous syringe glucagon HCl 1 mg solution for 1 mg IM Q20M PRN hypogl ycemia 05/01/24 Unknown History injection (Glucagon (HCl) Emergency Kit) guaifenesin 100 mg/5 mL oral 400 mg PO Q4H PRN cough 0 05/01/24 Unknown History liquid (Cough Syrup) melatonin 1 mg chewable tablet 1 mg PO QHS 05/01/24 Un known History (Kids Melatonin) memantine 5 mg tablet 5 mg PO BID 05/01/24 Unknown History multivit,stress formula-zinc 1 tab PO DAILY 05/01/24 U nknown History tablet (Stress B With Zinc tablet) multivitamin-iron 9 mg-folic acid 1 tab PO DAILY 05/01 Unknown History 400 mcg-calcium and minerals tablet (One-A-Day Teen Advantage) oxycodone 5 mg tablet 5 mg PO Q8H PRN pain 5 Unknown History potassium chloride 20 mEq 20 meq PO DAILY 05/01/24 Unk nown History tablet,extended release(part/cryst) (Klor-Con M) Allergy/AdvReac Type Severity Reaction Status Date / Time ciprofloxacin (From Cipro) Allergy Hives Verified 05/01/24 14:39 ciprofloxacin HCl (From Allergy Hives Verified 05/01/24 14:39 Cipro) donepezil Allergy PT UNSURE Verified 05/01/24 14:39 OF REACTION levofloxacin (From Levaquin) Allergy PT UNSURE Verified 05/01/24 14:39 OF REACTION amoxicillin trihydrate (From AdvReac Abd Verified 05/01/24 14:39 Augmentin) cramps/diarrhea potassium clavulanate (From AdvReac Abd Verified 05/01/24 14:39 Augmentin) cramps/diarrhea Surgical History (Updated 05/01/24 @ 19:[address] Miranda Diggs DO) S/P ORIF (open reduction internal fixation) fracture Social History (Updated 05/01/24 @ 19:[address] Miranda Diggs, DO) housing: [facility] Smoking Status: Former smoker alcohol intake: never substance use type: does not use ROS ROS ED Review of Systems ROS Unobtainable: due to mental condition and other Constitutional Constitutional ED: Reports lethargy; Denies chills, fever(s), sweats or weight loss Eyes Eyes: Denies blurry vision, change in vision or diplopia ENT ENT ED: Denies rhinorrhea or sore throat Cardiovascular Cardiovascular: Denies chest pain, orthopnea or racing heartbeat Respiratory/Chest Respiratory/Chest: Denies cough, dyspnea, dyspnea on exertion, orthopnea or sputum Gastrointestinal Gastrointestinal: Denies abdominal pain, diarrhea, nausea or vomiting Genitourinary Genitourinary ED: Denies dysuria, hematuria or urinary frequency Musculoskeletal Musculoskeletal: Denies arthralgias, back pain, myalgias or neck pain Integumentary Denies abscess, Abrasions or rash Neurologic Neurologic: Denies headache(s) or weakness Psychiatric Psychiatric: Denies anxiety, depression or suicidal thoughts Endocrine Endocrinology: Denies polydipsia, polyphagia or polyuria Hematologic/Lymphatic Hematologic/Lymphatic: Denies easy bleeding, easy bruising or lymphadenopathy Allergic/Immunologic Allergic/Immunologic ED: Denies mouth swelling, tongue swelling or urticaria EXAM Physical Exam Const Vital Signs: 05/01/24 14:40 05/01/24 16:38 05/01/24 18:08 Temperature 98.3 F Temperature Source Oral Pulse Rate 99 89 83 Respiratory Rate 16 19 H 20 H Blood Pressure 153/65 H 133/68 H Blood Pressure Mean 94 89 Pulse Ox 99 92 Oxygen Delivery Method Room Air Room Air Positive well nourished and well developed General Appearance ED: well developed and NAD HEENT Reports TM's clear and moist mucous membranes normocephalic and atraumatic; Negative for trauma or tenderness Tympanic Membrane ED: Yes TM's clear Eyes PERRL and EOMs intact bilaterally General Eye ED: Negative for pale conjunctiva or scleral icterus Neck no lymphadenopathy, supple and no JVD General: Negative for tenderness Chest Wall inspection of chest normal and palpation of chest normal Chest: Negative for tenderness Resp normal respiratory effort and clear to auscultation bilaterally Effort and Inspection: Negative for respiratory distress or pain with movement Auscultation: Negative for rhonchi, wheezes or diminished lung sounds Cardio regular rate, regular rhythm, S1 normal heart sound, S2 normal heart sound and no murmurs Peripheral Pulses: pulses 2+ throughout GI normal to inspection, nondistended, normoactive bowel sounds, soft to palpation, non-tender, non-distended and no masses Back/Spine no CVA tenderness and no thoracic nor lumbar tenderness Extremity Extremity Narrative: Evaluation of the right leg I am able to palpate a dorsal pedal pulse that is faint. Also able to palpate a posterior tibial pulse. Patient has ecchymosis and bruising noted to the left foot. Minimally palpable dorsal pedal and posterior tibial pulses. I am able to palpate femoral pulses bilaterally and popliteal pulses bilaterally. General Extremety ED: Negative for edema General Extremity: Negative for edema Neuro oriented x3, CN's II-XII intact bilaterally, no sensory deficits noted and gait normal Sensorium / Orientation: awake, alert, oriented to person, oriented to place and oriented to time Motor Exam: strength 5/5 throughout and strength abnormal Psych mental status grossly normal Skin no rashes or lesions noted and no wounds MDM MDM MDM Narrative Medical decision making narrative: Patient sent to the emergency department from [facility] with concern for an occluded right superficial femoral artery. On exam the right foot is cooler to the touch compared to the left and she does have diminished cap refill of 7-8 seconds. Case discussed with Dr. Pisano who recommended obtaining CTA of the abdomen pelvis with runoffs to evaluate further. He recommended full dose Lovenox and admission to medicine with recommendation that ABIs performed in the morning. Spoke with hospitalist will evaluate patient for admission. CBC with differential, 7.6 with hemoglobin 9.5 and platelet count of 399. Chemistries unremarkable. CTA with runoff results pending. CTA results did return and radiologist called to talk to me to let me know that there was concern about fracture of the left knee to obtain plain x-rays which was ordered. Also there was a mass in the right lower quadrant that was arterially enhancing and radiology recommended dedicated CT of the abdomen pelvis for evaluation also noted was left hip fluid collection that again was arterially enhancing saba rning for possible abscess although clinically have low suspicion for this given no fever and no skin changes concerning for infection to the left hip and normal white count. Discussed findings with hospitalist. Lab Data Attestation: I reviewed the patient's lab results. Labs: Laboratory Results - last 24 hr 05/01/24 14:45 WBC 7.6 RBC 3.99 L Hgb 9.5 L Hct 32.2 L MCV 80.7 L MCH 23.8 L MCHC 29.5 L RDW Std Deviation 63.2 H RDW Coeff of Sol 21.7 H Plt Count 399 MPV 10.0 Immature Gran % (Auto) 0.700 Neut % (Auto) 78.6 H Lymph % (Auto) 11.5 L Merrick % (Auto) 9.0 Eos % (Auto) 0.1 Baso % (Auto) 0.1 Absolute Neuts (auto) 6.0 Absolute Lymphs (auto) 0.88 Nucleated RBC % 0 Differential Comment SCANNED Platelet Estimate ADEQUATE Anisocytosis 2+ Ovalocytes 2+ Sodium 140 Potassium 4.2 Chloride 111 H Carbon Dioxide 22.0 Anion Gap 7 BUN 33 H Creatinine 1.38 H Estim Creat Clear Calc 23.71 Est GFR (MDRD) Af Amer 47 L Est GFR (MDRD) Non-Af 38 L BUN/Creatinine Ratio 23.9 H Glucose 92 Calcium 8.4 L Radiography Diagnostic Testing: Clinical Impression(s) from Imaging Studies Abdomen/Pelvis CTA 05/01/24 16:20 IMPRESSION: 1. Arterially enhancing right lower quadrant mass, incompletely evaluated on arterial examination. If not recently performed, CT abdomen pelvis with contrast could be obtained for further evaluation. 2. Intramedullary nail fixation of the complex left femoral neck fracture with large rim enhancing fluid collection, concerning for developing abscess. Dedicated CT examination of the left hip with contrast is recommended if not recently performed. 3. Complete occlusion of the right superficial femoral artery, with partial reconstitution within the proximal right popliteal artery. 4. High-grade stenosis of the proximal left popliteal artery. 5. High-grade right and moderate grade left multifocal stenoses of the trifurcation arteries. 6. Probable complex fracture of the left knee as described. If not previously performed, left knee radiographs recommended for further evaluation. 7. Partially visualized suprarenal abdominal aortic aneurysm with marked stenosis of the right renal artery, chronic given asymmetric right renal cortical atrophy. Dr. Flaherty discussed these findings via telephone with Dr. Ulloa on 05/01/24 at 6:42 pm. One or more dose reduction techniques were used (e.g., Automated exposure control, adjustment of the mA and/or kV according to patient size, use of iterative reconstruction technique). Reading Location: [id number] view x-ray of left knee obtained interpreted by myself as no evidence of fracture or dislocation Discharge Plan Dx/Rx/DC Orders Clinical Impression: Peripheral vascular disease, Arterial occlusion, Hypertension Disposition Disposition: Acute Care Hospital [facility] Discharge Date/Time: 05/01/24 19:18
--- NOTE | 2024-05-01 16:20 | CT_ITS ---
PROCEDURE: CTA ABD W/RUNOFF W/WO CONTRAST REASON FOR EXAM: 88-year-old female, concern for right femoral artery occlusion, recent left femoral fracture. TECHNIQUE: CTA imaging of the abdomen, pelvis, and lower extremities with intravenous contrast. 3D reconstructions. IV CONTRAST: Isovue-[id number] COMPARISON: None. FINDINGS: There is diffuse moderate to marked multifocal atherosclerotic plaque throughout the visualized abdominal aorta and bilateral iliac arteries. Aorta: Partially visualized suprarenal abdominal aortic aneurysm measuring at least 4.3 cm (series 2, image 3). Celiac: Partially visualized, however grossly patent. SMA: Moderate mixed calcified and soft plaque identified resulting in mild stenosis. EFE : Not discretely visualized. Right Renal: Marked stenosis at its origin secondary to aneurysmal sac. Left Renal: Normal. Iliac Arteries: Moderate mixed atherosclerotic plaque throughout the common, internal and external bilateral iliac arteries. Multifocal ectasia of the left common iliac artery. No focal stenosis. RIGHT Lower Extremity: Common Femoral: Moderate focal narrowing of the right common femoral artery at the level of the takeoff of the deep femoral artery secondary to calcific plaque. Superficial Femoral: Complete occlusion of the right superficial femoral artery just distal to its origin secondary to large calcified plaque. Deep Femoral: Normal. Popliteal: Partial reconstitution near the region of the popliteal artery with persistent marked mixed calcification and short-segment stenoses. High-grade, multifocal stenoses of the trifurcation arteries. LEFT Lower Extremity: Common Femoral: Normal. Superficial Femoral: Moderate multifocal narrowing throughout the left SFA. Deep Femoral: Normal. Popliteal: High-grade stenosis of the proximal left popliteal artery measuring approximately 1.7 cm in length (series 602, image 97). Moderate grade, multifocal stenoses of the trifurcation arteries. Other Stents/Grafts: None. Other Findings: Asymmetric right renal cortical atrophy. Left lower pole nephrolithiasis. Cholelithiasis without evidence of acute cholecystitis. Arterially enhancing right lower quadrant mass measuring approximately 6.1 cm (series 2, image 44). Moderate distal colonic diverticulosis. Moderate rightward curvature of the lumbar spine with severe lumbar spondylosis. Partially visualized right rib fracture deformities, of indeterminate age. Intramedullary nail fixation of the complex, impacted left femoral neck fracture with large rim enhancing fluid collection subjacent to the subtrochanteric area, measuring approximately 5.5 by 3.0 cm (series 2, image 83). Adjacent soft tissue swelling and small subcutaneous dense fluid collection, likely developing hematoma. Marked subcutaneous stranding along the left posterolateral knee. Osseous visualization is limited by technique, however concern for left posterior medial tibial plateau fracture, and possible lateral femoral condyle fracture. CT/CTA Abd w/Runoff W/WO Contrast IMPRESSION: 1. Arterially enhancing right lower quadrant mass, incompletely evaluated on ar terial examination. If not recently performed, CT abdomen pelvis with contrast could be obtained for further evaluation. 2. Intramedullary nail fixation of the complex left femoral neck fracture with large rim enhancing fluid collection, concerning for developing abscess. Dedicated CT examination of the left hip with contrast is recommended if not recently performed. 3. Complete occlusion of the right superficial femoral artery, with partial rec onstitution within the proximal right popliteal artery. 4. High-grade stenosis of the proximal left popliteal artery. 5. High-grade right and moderate grade left multifocal stenoses of the trifurca tion arteries. 6. Probable complex fracture of the left knee as described. If not previously performed, left knee radiographs recommended for further evaluation. 7. Partially visualized suprarenal abdominal aortic aneurysm with marked stenos is of the right renal artery, chronic given asymmetric right renal cortical atrophy. Dr. Flaherty discussed these findings via telephone with Dr. Ulloa on 05/01/24 a t 6:42 pm. One or more dose reduction techniques were used (e.g., Automated exposure contr ol, adjustment of the mA and/or kV according to patient size, use of iterative reconstruction technique). Reading Location: [id number]
[2024-05-01 16:47] LABS: Absolute Lymphocyte Count 0.88 X10^3/uL (0.83-4.51); Basophil# 0.01 X10^3/uL; Basophil% 0.1 % (0-1); Eosinophil# 0.01 X10^3/uL; Eosinophils% 0.1 % (0-5); Hematocrit 32.2 % (37-47); Hemoglobin 9.5 g/dL (12.0-15.0); Lymphocyte # 0.88 X10^3/ul (0.83-4.51); Lymphocyte % 11.5 % (19-41); Mean Corp Hgb Conc 29.5 g/dL (32-36); Mean Corpuscular Hgb 23.8 pg (27.0-32.0); Mean Corpuscular Volume 80.7 fL (81-99); Monocyte# 0.69 X10^3/uL; NRBC Flagged by Analyzer 0 % (0-5); Neutrophil % 78.6 % (47-70); POSITIVE MORPHOLOGY YES; Platelet Count 399 K/mm3 (150-450); RBC Distribution Width CV 21.7 % (11.6-14.6); RBC Distribution Width SD 63.2 fl (35.1-43.9); Red Blood Count 3.99 M/mm3 (4.2-5.4); White Blood Count 7.6 K/mm3 (4.4-11.0)
[2024-05-01 16:54] LABS: Anion Gap 7 (5-15); BUN 33 mg/dL (7-18); BUN/Creat Ratio 23.9 RATIO (10-20); Calcium,Total 8.4 mg/dL (8.5-10.1); Chloride 111 mmol/L (98-107); Creatinine, Serum 1.38 mg/dL (0.55-1.02); EST Glomerular Filtration Rate 38 mL/min (>60); Est Glom Filt Rate - Afr Amer 47 mL/min (>60); Estimated Creatinine Clearance 23.71 ml/min; Glucose 92 mg/dL (74-106); Potassium 4.2 mmol/L (3.5-5.1); Sodium Level 140 mmol/L (136-145)
[2024-05-01 16:59] LABS: Differential Indicated SCAN CRITERIA MET
[2024-05-01] MEDS: Enoxaparin 60 MG/0.6 ML Syringe 50 MG SC (17:11)
--- NOTE | 2024-05-01 18:26 | ART_ITS ---
Reason For Study Reason For Study: RT SFA Occlusion Procedure A bilateral lower extremity continuous wave Doppler with analog waveform analysis and ankle brachial indexes. Left Segmental Pressures Left brachial= 94mmHg. Left posterior tibial artery = 122mmHg. Left dorsalis pedis artery = 118mmHg. Left digit = 62 mmHg. The left posterior tibial artery waveforms are monophasic. The left dorsalis pedis waveforms are biphasic. Right Segmental Pressures Right brachial= 132mmHg. Right posterior tibial artery = 94mmHg. Right dorsalis pedis artery = 94mmHg. Right digit = 42 mmHg. The right posterior tibial artery waveforms are monophasic. The right dorsalis pedis waveforms are monophasic. Indices The right ankle brachial index by the posterior tibial artery is 0.71. The right ankle brachial index by the dorsalis pedis is 0.71. The right digital-brachial index is 0.32. The left ankle brachial index by the posterior tibial artery is 0.92. The left ankle brachial index by the dorsalis pedis is 0.89. The left digital-brachial index is 0.47. VL/Ankle Brachial Index Interpretation Summary Right ROMULO 0.71, moderate arterial insufficiency. Doppler/PVR waveforms of the r ight ankle moderately diminished at rest. Left ROMULO 0.92, mild arterial insufficiency. Doppler/PVR waveforms of the left a nkle mildly diminished at rest. Ordering Physician: Miranda Diggs Referring Physician: Nona Bosch Performed By: Bonifacio Aguilar RVT
--- NOTE | 2024-05-01 18:28 | PCM.HP.STD ---
[facility] - General General Date of Admission: 05/01/24 Date of Service: 05/01/24 Chief Complaint: R Leg Pain HPI Narrative NITHIN KRISHNAN, is a 88 F who presented to the emergency department was from hospital on 05/01/2024 from [facility] due to bilateral lower extremity pain. Patient had a fall 3 weeks ago and had a fracture in her left hip. Surgery was performed at [facility] by Dr. Corrales. Due to the pain she was having arterial ultrasound was performed to both legs today and showed a right superficial femoral artery proximal mid and distal occlusion with moderate to high-grade stenosis throughout the left lower extremity between the left popliteal and posterior tibial arteries. Given this finding she was sent to emergency department for further evaluation. At the time of my evaluation her daughter who is the DPOA for healthcare was at the bedside and indicated her mother's quality of life was not very good prior to the fracture and has been nothing but problematic since. She did voice interest in more quality focus measures and did for sure indicates she did not want any more surgery. We did discuss hospice is a possibility however she did feel that she needed talk further with family and would like the patient to be treated for now from a medical standpoint and have a conversation with hospice tomorrow to discuss further options after she had the opportunity to talk to the rest of her family. She did indicate taking her home would not be possible and she would need to be hospice and inpatient hospice unit or long-term. Vital signs on presentation showed a temperature of 98.3, heart rate 99, respiratory rate 16, blood pressure 153/65, and pulse ox 92-99% on room air. CBC shows a normal white count, stable anemia with a hemoglobin of 9.5. This is microcytic in nature. Platelet count was 399,000 chemistry panel showed CKD stage IIIb but was otherwise unremarkable. The case was discussed with Dr. Pisano given the vascular occlusion and he suggested a CTA with runoff be performed in her being placed on therapeutic Lovenox which had already been initiated the emergency department. CTA with runoff shows arterial enhancing right lower quadrant mass incompletely evaluated on the arterial exam, intramedullary nail fixation of a complex left femoral neck fracture with large rim-enhancing fluid collection, complete occlusion of the right superficial femoral artery with partial reconstitution of the proximal right popliteal artery, high-grade stenosis of the proximal left popliteal artery high-grade stenosis and moderate grade left multifocal stenoses of the trifurcation arteries, probable complex fracture of the left knee and partially visualized suprarenal abdominal aortic aneurysm with marked stenosis of the right renal artery that appeared to be chronic. I was unable to get the CT them and pelvis because it needs to be done with contrast and she had contrast already this evening. We will get a CT of the hip. Family is deciding about hospice but wanted to pursue treatment at this time. [facility] Medical History CKD (chronic kidney disease) stage 3, GFR 30-59 ml/min Scalp wound Pneumonia Transient alteration of awareness Gout Hypothyroid Hypertension Alzheimer disease Depression Hypertension Hypothyroid Home Medications ?Medication ?Instructions ?Recorded ?Last Taken ?Type lisinopril 10 mg tablet 10 mg PO DAILY blood pressure 01/08/13 01/13/24 22:41 History sertraline 50 mg tablet 50 mg PO DAILY mental health 12/08/19 12/08/19 History levothyroxine 50 mcg tablet 50 mcg PO DAILY disorder of 01/14/24 01/13/24 22:00 History thyroid gland rivastigmine tartrate 3 mg capsule 3 mg PO BID memory 01/14/24 Unknown History allopurinol 100 mg tablet 100 mg PO DAILY gout pain 04/12/24 Unknown History acetaminophen 500 mg capsule 1,000 mg PO Q8H PRN fever or pain 05/01/24 Unknown History acetaminophen 650 mg rectal 650 mg UT Q4H PRN fever or pain 05/01/24 Unknown History suppository aluminum-magnesium hydroxide 225 30 ml PO Q4H PRN acid reflux 05/01/24 Unknown History mg-200 mg/5 mL oral suspension ascorbic acid (vitamin C) 500 mg 500 mg PO DAILY 05/01/24 Unknown History capsule bisacodyl 10 mg rectal suppository 10 mg UT DAILY PRN constipation 05/01/24 Unknown History (OneLAX Bisacodyl) cholecalciferol (vitamin D3) 1,250 50,000 unit PO QWEEK 05/01/24 Unknown History mcg (50,000 unit) capsule dextrose 40 % oral gel (Glutose-15) 15 g PO Q15M PRN hypoglycemia 05/01/24 Unknown History doxycycline monohydrate 100 mg 100 mg PO BID 05/01/24 Unknown History capsule enoxaparin 30 mg/0.3 mL 30 mg subcut DAILY 05/01/24 Unknown History subcutaneous syringe glucagon HCl 1 mg solution for 1 mg IM Q20M PRN hypoglycemia 05/01/24 Unknown History injection (Glucagon (HCl) Emergency Kit) guaifenesin 100 mg/5 mL oral 400 mg PO Q4H PRN cough 05/01/24 Unknown History liquid (Cough Syrup) melatonin 1 mg chewable tablet 1 mg PO QHS 05/01/24 Unknown History (Kids Melatonin) memantine 5 mg tablet 5 mg PO BID 05/01/24 Unknown History multivit,stress formula-zinc 1 tab PO DAILY 05/01/24 Unknown History tablet (Stress B With Zinc tablet) multivitamin-iron 9 mg-folic acid 1 tab PO DAILY 05/01/24 Unknown History 400 mcg-calcium and minerals tablet (One-A-Day Teen Advantage) oxycodone 5 mg tablet 5 mg PO Q8H PRN pain 05/01/24 Unknown History potassium chloride 20 mEq 20 meq PO DAILY 05/01/24 Unknown History tablet,extended release(part/cryst) (Klor-Con M) Allergy/AdvReac Type Severity Reaction Status Date / Time ciprofloxacin (From Cipro) Allergy Hives Verified 05/01/24 14:39 ciprofloxacin HCl (From Allergy Hives Verified 05/01/24 14:39 Cipro) donepezil Allergy PT UNSURE Verified 05/01/24 14:39 OF REACTION levofloxacin (From Levaquin) Allergy PT UNSURE Verified 05/01/24 14:39 OF REACTION amoxicillin trihydrate (From AdvReac Abd Verified 05/01/24 14:39 Augmentin) cramps/diarrhea potassium clavulanate (From AdvReac Abd Verified 05/01/24 14:39 Augmentin) cramps/diarrhea unable to obtain Surgical History (Updated 05/01/24 @ 19:[address] Miranda Diggs DO) S/P ORIF (open reduction internal fixation) fracture Social History (Updated 05/01/24 @ 19:[address] Miranda Diggs DO) housing: long-term Smoking Status: Former smoker alcohol intake: never substance use type: does not use ROS Review of Systems ROS Unobtainable: due to mental condition Vital Signs Vital Signs Vital Signs: 05/01/24 14:40 05/01/24 16:38 05/01/24 18:08 Temperature 98.3 F Temperature Source Oral Pulse Rate 99 89 83 Respiratory Rate 16 19 H 20 H Blood Pressure 153/65 H 133/68 H Blood Pressure Mean 94 89 Pulse Ox 99 92 Oxygen Delivery Method Room Air Room Air Weight Weight: 52.3 kg Body Mass Index (BMI) 18.6 Physical Exam Const no apparent distress; Negative for average body habitus, healthy appearing or well nourished Constitutional Narrative: Cachectic, frail appearing, elderly, white female, lying in bed, daughter at bedside, patient does not answer any questions at this time but will intermittently open her eyes, does not appear toxic and currently appears comfortable Orientation / Consciousness: confused HEENT normocephalic, head/scalp atraumatic and moist oral mucous membranes HEENT Narrative: Temporal wasting Eyes PERRL, EOMs intact bilaterally and conjunctivae normal Eyes Narrative: No scleral icterus Neck supple Neck Narrative: Trachea midline Resp normal respiratory effort, no retractions, no use of accessory muscles and clear to auscultation bilaterally Resp Narrative: Markedly diminished but no adventitious sounds Auscultation: rales, rhonchi and wheezes Cardio regular rate, regular rhythm, S1 normal heart sound, S2 normal heart sound, no murmurs, no rub, no gallops and no clicks GI normal to inspection, nondistended, normoactive bowel sounds, soft to palpation and non-tender GI Narrative: Scaphoid abdomen Extremity Extremity Narrative: Bilateral lower extremity edema right greater than left, no clubbing or cyanosis Skin Skin Narrative: Skin is fragile and thin, multiple scattered ecchymosis with severe ecchymosis on his feet Neuro Neuro Narrative: Difficult exam due to patient's cooperation and current mental status Psych Psych Narrative: Unable to assess Results Lab / Micro Data 05/01/24 14:45 05/01/24 14:45 Labs: Laboratory Results - last 24 hr 05/01/24 14:45: WBC 7.6, RBC 3.99 L, Hgb 9.5 L, Hct 32.2 L, MCV 80.7 L, MCH 23.8 L, MCHC 29.5 L, RDW Std Deviation 63.2 H, RDW Coeff of Sol 21.7 H, Plt Count 399, MPV 10.0, Immature Gran % (Auto) 0.700, Neut % (Auto) 78.6 H, Lymph % (Auto) 11.5 L, [place] % (Auto) 9.0, Eos % (Auto) 0.1, Baso % (Auto) 0.1, Absolute Neuts (auto) 6.0, Absolute Lymphs (auto) 0.88, Nucleated RBC % 0, Sodium 140, Potassium 4.2, Chloride 111 H, Carbon Dioxide 22.0, Anion Gap 7, BUN 33 H, Creatinine 1.38 H, Estim Creat Clear Calc 23.71, Est GFR (MDRD) Af Amer 47 L, Est GFR (MDRD) Non-Af 38 L, BUN/Creatinine Ratio 23.9 H, Glucose 92, Calcium 8.4 L Assessment & Plan Assessment/Plan (1) Arterial occlusion: (2) Anemia: (3) CKD (chronic kidney disease) stage 3, GFR 30-59 ml/min: PLAN: Plan Right lower extremity arterial occlusion/severe PVD -Daughter at bedside who is POA states she does not want any surgical intervention at this time -Vascular surgery is consulted for assistance with management but is aware per my discussion with Dr. Pisano that surgical intervention is not something family wanted to pursue at the time of admission -Lovenox 50 mg SQ twice daily -Check ABIs in a.m. -Vascular checks as ordered -As needed pain medication as ordered Failure to thrive -Extensive discussion with daughter at this time of admission and they are really looking to possibly focus on more quality based goals of care rather than quantitative goals of care -Hospice consultation in place -Daughter-DPOA for healthcare intends to talk to family further tonight -Patient's health was not good prior to her fracture and has been severely compromised since that point in time -I do have a high suspicion without hospice she will have multiple readmissions to the hospital based on current state Anemia -Hemoglobin is 9.5 and appears to be running stable between 9 and 10 -Will monitor closely with heparin Possible left hip fluid collection -Will get dedicated CT of the hip--> no contrast at this time as she is already had a contrast load -Hopefully imaging will help with overall goals of care discussion -Hold antibiotics until can further clarify Intra-abdominal fluid collection -Will need a CT of the abdomen pelvis with and without contrast of possible--> should at least have IV contrast and unable to this evening because of CTA with runoff of the lower extremities -Unable to get another contrast load -Doubt family want any intervention however may help with goals of care discussion -Would recommend CT abdomen pelvis tomorrow depending on family's wishes -No white count so we will hold off on antibiotics for now CKD stage IIIb -Serum creatinine relatively close to baseline -Will monitor -Avoid nephrotoxins as able Severe malnutrition with weight loss -Patient is underweight with a BMI of 18.6 -Dietitian consulted -Supplements added History of gout -continue home allopurinol Pneumonia -Continue home doxycycline -I-S -Patient is currently on room air Hypothyroidism -Continue home levothyroxine Essential hypertension -Continue home lisinopril Dementia -Continue home rivastigmine -Continue home memantine COPD -As needed nebulizers -I-S as patient able AAA -Patient would not survive repair or stenting DVT prophylaxis -Full anticoagulation as noted above CODE STATUS -DNR CCA with no intubation per documentation and discussion with daughter who is DPOA for healthcare -Hospice consult placed for discussion with family tomorrow--> DPOA for healthcare is going to discuss options with family further this evening Charges/Coding Visit Charges Inpatient E&M: 27082 Init Hosp L3
--- NOTE | 2024-05-01 19:12 | RAD_ITS ---
PROCEDURE: KNEE 4 OR MORE VIEWS REASON FOR EXAM: Pain. TECHNIQUE: 4 views of the left knee COMPARISON: None. FINDINGS: No acute fracture or dislocation is present. Tricompartment degenerative changes are identified with joint space narrowing and marginal osteophytes. There is chondrocalcinosis of the knee joint. There is a small suprapatellar knee joint effusion. Extensive vascular calcifications are present. RAD/Knee 4 or More Views IMPRESSION: 1. No acute osseous abnormality. 2. Degenerative changes. 3. Small suprapatellar knee joint effusion. Reading Location: [facility]
[2024-05-01 19:20] LABS: Anisocytosis 2+; Differential Comment SCANNED; Ovalocyte 2+; Platelet Estimate ADEQUATE (ADEQ)
--- NOTE | 2024-05-01 19:49 | CT_ITS ---
PROCEDURE: CT left hip without IV contrast REASON FOR EXAM: Pain, infection TECHNIQUE: Multiple contiguous axial images through the left hip were obtained without the administration of intravenous contrast. Two-dimensional coronal and sagittal reformatted images were reconstructed. Low-dose imaging technique was utilized. COMPARISON: None FINDINGS: Subacute comminuted intertrochanteric fracture width intact fixation hardware. Mild callus formation surrounds the fracture margins, however there is no significant osseous bridging. No new acute fracture or dislocation. Generalized soft tissue swelling about the fracture site. Small fluid collections in the lateral subcutaneous tissues in the subtrochanteric region measuring 2.3 x 2.0 x 3.4 cm (AP, TV and CC dimensions) and in the supra trochanteric region measuring 1.9 x 2.3 x 2.2 cm (AP, TV and CC dimensions). Fecal retention. Extensive vascular calcifications. Gluteus muscle atrophy. Chondrocalcinosis. Mild left hip osteoarthritis. Degenerative changes of the lower lumbar spine. CT/Extremity Lower without Contra IMPRESSION: 1. Subacute trochanteric fracture as above with intact fixation hardware. 2. Small fluid collections in the lateral subcutaneous tissues as above. Hemat liya, seroma and infection are all considered. One or more dose reduction techniques were used (e.g., Automated exposure contr ol, adjustment of the mA and/or kV according to patient size, use of iterative reconstruction technique). Reading Location: [facility]
[2024-05-02 02:00] VITALS: BP 162/86; PULSE 75; RESP 16; TEMP 36.4; O2SAT 95
[2024-05-02 04:04] LABS: Absolute Lymphocyte Count 0.94 X10^3/uL (0.83-4.51); Absolute Neutrophil Count 4.7 X10^3/uL (2.0-7.7); Basophil# 0.01 X10^3/uL; Basophil% 0.2 % (0-1); Eosinophil# 0.01 X10^3/uL; Eosinophils% 0.2 % (0-5); Hematocrit 28.3 % (37-47); Hemoglobin 8.3 g/dL (12.0-15.0); Lymphocyte # 0.94 X10^3/ul (0.83-4.51); Lymphocyte % 15.2 % (19-41); Mean Corp Hgb Conc 29.3 g/dL (32-36); Mean Corpuscular Hgb 23.6 pg (27.0-32.0); Mean Corpuscular Volume 80.4 fL (81-99); Mean Platelet Vol. 9.2 fl (6.2-12.0); Monocyte# 0.48 X10^3/uL; Monocyte% 7.8 % (0-10); NRBC Flagged by Analyzer 0 % (0-5); Neutrophil % 76.1 % (47-70); POSITIVE MORPHOLOGY YES; Platelet Count 350 K/mm3 (150-450); RBC Distribution Width CV 21.7 % (11.6-14.6); RBC Distribution Width SD 63.2 fl (35.1-43.9); Red Blood Count 3.52 M/mm3 (4.2-5.4); White Blood Count 6.2 K/mm3 (4.4-11.0)
[2024-05-02 04:34] LABS: Differential Indicated SCAN CRITERIA MET
[2024-05-02 04:48] LABS: ALB/GLOB Ratio 0.7 RATIO (0.9-2.4); AST(SGOT) 22 U/L (15-37); Alanine Aminotransfer ALT/SGPT 14 U/L (13-56); Albumin, Serum 2.3 g/dL (3.2-5.0); Alkaline Phosphatase 256 U/L (45-117); Anion Gap 9 (5-15); BUN 27 mg/dL (7-18); BUN/Creat Ratio 24.5 RATIO (10-20); Calcium,Total 7.8 mg/dL (8.5-10.1); Chloride 111 mmol/L (98-107); EST Glomerular Filtration Rate 50 mL/min (>60); Est Glom Filt Rate - Afr Amer 60 mL/min (>60); Estimated Creatinine Clearance 29.64 ml/min; Globulin 3.4 g/dL (2.2-4.2); Glucose 81 mg/dL (74-106); Magnesium 1.8 mg/dL (1.6-2.6); Phosphorus 3.4 mg/dL (2.5-4.9); Potassium 3.8 mmol/L (3.5-5.1); Protein, Total 5.7 g/dL (6.4-8.2); Sodium Level 137 mmol/L (136-145)
[2024-05-02 07:18] VITALS: O2SAT 95
[2024-05-02 08:50] LABS: Anisocytosis 1+
[2024-05-02 09:27] VITALS: BP 152/77; PULSE 77; RESP 15; TEMP 36.6; O2SAT 96
--- NOTE | 2024-05-02 10:11 | PN.HOSP_ITS ---
Reason for Visit Reason for Visit: Diagnoses Anemia, unspecified (05/01/24) Unspecified atherosclerosis (05/01/24) Chronic kidney disease, stage 3 unspecified (05/01/24) Objective Data Objective Data Vital Signs: Vital Signs Temp Pulse Resp BP Pulse Ox O2 Del Method 36.6 C 77 15 152/77 H 96 Room Air 05/02/24 09:27 05/02/24 09:27 05/02/24 09:27 05/02/24 09:27 05/02/24 09:27 05/02/24 09:27 Oxygen Delivery Method Room Air Weight: 52.1 kg Body Mass Index (BMI) 18.5 Lab / Micro Data 05/02/24 03:52 05/02/24 03:52 Labs: Laboratory Results - last 24 hr 05/01/24 14:45: WBC 7.6, RBC 3.99 L, Hgb 9.5 L, Hct 32.2 L, MCV 80.7 L, MCH 23.8 L, MCHC 29.5 L, RDW Std Deviation 63.2 H, RDW Coeff of Sol 21.7 H, Plt Count 399, MPV 10.0, Immature Gran % (Auto) 0.700, Neut % (Auto) 78.6 H, Lymph % (Auto) 11.5 L, [place] % (Auto) 9.0, Eos % (Auto) 0.1, Baso % (Auto) 0.1, Absolute Neuts (auto) 6.0, Absolute Lymphs (auto) 0.88, Nucleated RBC % 0, Differential Comment SCANNED, Platelet Estimate ADEQUATE, Anisocytosis 2+, Ovalocytes 2+, Sodium 140, Potassium 4.2, Chloride 111 H, Carbon Dioxide 22.0, Anion Gap 7, BUN 33 H, Creatinine 1.38 H, Estim Creat Clear Calc 23.71, Est GFR (MDRD) Af Amer 47 L, Est GFR (MDRD) Non-Af 38 L, BUN/Creatinine Ratio 23.9 H, Glucose 92, Calcium 8.4 L 05/02/24 03:52: WBC 6.2, RBC 3.52 L, Hgb 8.3 L, Hct 28.3 L, MCV 80.4 L, MCH 23.6 L, MCHC 29.3 L, RDW Std Deviation 63.2 H, RDW Coeff of Sol 21.7 H, Plt Count 350, MPV 9.2, Immature Gran % (Auto) 0.500, Neut % (Auto) 76.1 H, Lymph % (Auto) 15.2 L, [place] % (Auto) 7.8, Eos % (Auto) 0.2, Baso % (Auto) 0.2, Absolute Neuts (auto) 4.7, Absolute Lymphs (auto) 0.94, Nucleated RBC % 0, Anisocytosis 1+, Sodium 137, Potassium 3.8, Chloride 111 H, Carbon Dioxide 18.0 L, Anion Gap 9, B UN 27 H, Creatinine 1.10 H, Estim Creat Clear Calc 29.64, Est GFR (MDRD) Af Amer 60, Est GFR (MDRD) Non-Af 50 L, BUN/Creatinine Ratio 24.5 H, Glucose 81, Calcium 7.8 L, Phosphorus 3.4, Magnesium 1.8, Total Bilirubin 0.50, AST 22, ALT 14, A lkaline Phosphatase 256 H, Total Protein 5.7 L, Albumin 2.3 L, Globulin 3.4, A lbumin/Globulin Ratio 0.7 L Radiography Diagnostic Testing: Radiology Impression Abdomen/Pelvis CTA 05/01/24 16:20 IMPRESSION: 1. Arterially enhancing right lower quadrant mass, incompletely evaluated on arterial examination. If not recently performed, CT abdomen pelvis with contrast could be obtained for further evaluation. 2. Intramedullary nail fixation of the complex left femoral neck fracture with large rim enhancing fluid collection, concerning for developing abscess. Dedicated CT examination of the left hip with contrast is recommended if not recently performed. 3. Complete occlusion of the right superficial femoral artery, with partial reconstitution within the proximal right popliteal artery. 4. High-grade stenosis of the proximal left popliteal artery. 5. High-grade right and moderate grade left multifocal stenoses of the trifurcation arteries. 6. Probable complex fracture of the left knee as described. If not previously performed, left knee radiographs recommended for further evaluation. 7. Partially visualized suprarenal abdominal aortic aneurysm with marked stenosis of the right renal artery, chronic given asymmetric right renal cortical atrophy. Dr. Flaherty discussed these findings via telephone with Dr. Ulloa on 05/01/24 at 6:42 pm. One or more dose reduction techniques were used (e.g., Automated exposure control, adjustment of the mA and/or kV according to patient size, use of iterative reconstruction technique). Reading Location: [id number] Knee X-Ray 05/01/24 19:12 IMPRESSION: 1. No acute osseous abnormality. 2. Degenerative changes. 3. Small suprapatellar knee joint effusion. Reading [facility] Extrem[facility] 05/01/24 19:49 IMPRESSION: 1. Subacute trochanteric fracture as above with intact fixation hardware. 2. Small fluid collections in the lateral subcutaneous tissues as above. Hematoma, seroma and infection are all considered. One or more dose reduction techniques were used (e.g., Automated exposure control, adjustment of the mA and/or kV according to patient size, use of iterative reconstruction technique). Reading [facility] Assessment & Plan Assessment/Plan (1) Arterial occlusion: (2) Anemia: (3) CKD (chronic kidney disease) stage 3, GFR 30-59 ml/min: PLAN: Plan Right lower extremity arterial occlusion/severe PVD -Daughter at bedside who is POA states she does not want any surgical intervention at this time -Vascular surgery is consulted for assistance with management but is aware per my discussion with Dr. Pisano that surgical intervention is not something family wanted to pursue at the time of admission -Lovenox 50 mg SQ twice daily -Check ABIs in a.m. -Vascular checks as ordered -As needed pain medication as ordered Failure to thrive -Extensive discussion with daughter at this time of admission and they are really looking to possibly focus on more quality based goals of care rather than quantitative goals of care -Hospice consultation in place -Daughter-DPOA for healthcare intends to talk to family further tonight -Patient's health was not good prior to her fracture and has been severely compromised since that point in time -I do have a high suspicion without hospice she will have multiple readmissions to the hospital based on current state Anemia -Hemoglobin is 9.5 and appears to be running stable between 9 and 10 -Will monitor closely with heparin Possible left hip fluid collection -Will get dedicated CT of the hip--> no contrast at this time as she is already had a contrast load -Hopefully imaging will help with overall goals of care discussion -Hold antibiotics until can further clarify Intra-abdominal fluid collection -Will need a CT of the abdomen pelvis with and without contrast of possible--> should at least have IV contrast and unable to this evening because of CTA with runoff of the lower extremities -Unable to get another contrast load -Doubt family want any intervention however may help with goals of care discussion -Would recommend CT abdomen pelvis tomorrow depending on family's wishes -No white count so we will hold off on antibiotics for now CKD stage IIIb -Serum creatinine relatively close to baseline -Will monitor -Avoid nephrotoxins as able Severe malnutrition with weight loss -Patient is underweight with a BMI of 18.6 -Dietitian consulted -Supplements added History of gout -continue home allopurinol Pneumonia -Continue home doxycycline -I-S -Patient is currently on room air Hypothyroidism -Continue home levothyroxine Essential hypertension -Continue home lisinopril Dementia -Continue home rivastigmine -Continue home memantine COPD -As needed nebulizers -I-S as patient able AAA -Patient would not survive repair or stenting DVT prophylaxis -Full anticoagulation as noted above CODE STATUS -DNR CCA with no intubation per documentation and discussion with daughter who is DPOA for healthcare -Hospice consult placed for discussion with family tomorrow--> DPOA for healthcare is going to discuss options with family further this evening
--- NOTE | 2024-05-02 10:11 | PCM.PN.HOSP ---
Reason for Visit Reason for Visit: Diagnoses Anemia, unspecified (05/01/24) Unspecified atherosclerosis (05/01/24) Chronic kidney disease, stage 3 unspecified (05/01/24) Subjective Subjective Feeling well. No events. Objective Data Objective Data Vital Signs: Vital Signs Temp Pulse Resp BP Pulse Ox O2 Del Method 36.6 C 77 15 152/77 H 96 Room Air 05/02/24 09:27 05/02/24 09:27 05/02/24 09:27 05/02/24 09:27 05/02/24 09:27 05/02/24 09:27 Oxygen Delivery Method Room Air Weight: 52.1 kg Body Mass Index (BMI) 18.5 Lab / Micro Data 05/02/24 03:52 05/02/24 03:52 Labs: Laboratory Results - last 24 hr 05/01/24 14:45: WBC 7.6, RBC 3.99 L, Hgb 9.5 L, Hct 32.2 L, MCV 80.7 L, MCH 23.8 L, MCHC 29.5 L, RDW Std Deviation 63.2 H, RDW Coeff of Sol 21.7 H, Plt Count 399, MPV 10.0, Immature Gran % (Auto) 0.700, Neut % (Auto) 78.6 H, Lymph % (Auto) 11.5 L, [place] % (Auto) 9.0, Eos % (Auto) 0.1, Baso % (Auto) 0.1, Absolute Neuts (auto) 6.0, Absolute Lymphs (auto) 0.88, Nucleated RBC % 0, Differential Comment SCANNED, Platelet Estimate ADEQUATE, Anisocytosis 2+, Ovalocytes 2+, Sodium 140, Potassium 4.2, Chloride 111 H, Carbon Dioxide 22.0, Anion Gap 7, BUN 33 H, Creatinine 1.38 H, Estim Creat Clear Calc 23.71, Est GFR (MDRD) Af Amer 47 L, Est GFR (MDRD) Non-Af 38 L, BUN/Creatinine Ratio 23.9 H, Glucose 92, Calcium 8.4 L 05/02/24 03:52: WBC 6.2, RBC 3.52 L, Hgb 8.3 L, Hct 28.3 L, MCV 80.4 L, MCH 23.6 L, MCHC 29.3 L, RDW Std Deviation 63.2 H, RDW Coeff of Sol 21.7 H, Plt Count 350, MPV 9.2, Immature Gran % (Auto) 0.500, Neut % (Auto) 76.1 H, Lymph % (Auto) 15.2 L, [place] % (Auto) 7.8, Eos % (Auto) 0.2, Baso % (Auto) 0.2, Absolute Neuts (auto) 4.7, Absolute Lymphs (auto) 0.94, Nucleated RBC % 0, Anisocytosis 1+, Sodium 137, Potassium 3.8, Chloride 111 H, Carbon Dioxide 18.0 L, Anion Gap 9, BUN 27 H, Creatinine 1.10 H, Estim Creat Clear Calc 29.64, Est GFR (MDRD) Af Amer 60, Est GFR (MDRD) Non-Af 50 L, BUN/Creatinine Ratio 24.5 H, Glucose 81, Calcium 7.8 L, Phosphorus 3.4, Magnesium 1.8, Total Bilirubin 0.50, AST 22, ALT 14, Alkaline Phosphatase 256 H, Total Protein 5.7 L, Albumin 2.3 L, Globulin 3.4, Albumin/Globulin Ratio 0.7 L Radiography Diagnostic Testing: Radiology Impression Abdomen/Pelvis CTA 05/01/24 16:20 IMPRESSION: 1. Arterially enhancing right lower quadrant mass, incompletely evaluated on arterial examination. If not recently performed, CT abdomen pelvis with contrast could be obtained for further evaluation. 2. Intramedullary nail fixation of the complex left femoral neck fracture with large rim enhancing fluid collection, concerning for developing abscess. Dedicated CT examination of the left hip with contrast is recommended if not recently performed. 3. Complete occlusion of the right superficial femoral artery, with partial reconstitution within the proximal right popliteal artery. 4. High-grade stenosis of the proximal left popliteal artery. 5. High-grade right and moderate grade left multifocal stenoses of the trifurcation arteries. 6. Probable complex fracture of the left knee as described. If not previously performed, left knee radiographs recommended for further evaluation. 7. Partially visualized suprarenal abdominal aortic aneurysm with marked stenosis of the right renal artery, chronic given asymmetric right renal cortical atrophy. Dr. Flaherty discussed these findings via telephone with Dr. Ulloa on 05/01/24 at 6:42 pm. One or more dose reduction techniques were used (e.g., Automated exposure control, adjustment of the mA and/or kV according to patient size, use of iterative reconstruction technique). Reading Location: [id number] Knee X-Ray 05/01/24 19:12 IMPRESSION: 1. No acute osseous abnormality. 2. Degenerative changes. 3. Small suprapatellar knee joint effusion. Reading Location: [facility] Lower Extremity CT 05/01/24 19:49 IMPRESSION: 1. Subacute trochanteric fracture as above with intact fixation hardware. 2. Small fluid collections in the lateral subcutaneous tissues as above. Hematoma, seroma and infection are all considered. One or more dose reduction techniques were used (e.g., Automated exposure control, adjustment of the mA and/or kV according to patient size, use of iterative reconstruction technique). Reading Location: [facility] Physical Exam Const Constitutional Narrative: sleeping, but awakes slightly. Extremity Extremity Narrative: no edema. intact DP pulses. Assessment & Plan Assessment/Plan (1) Arterial occlusion: (2) Anemia: (3) CKD (chronic kidney disease) stage 3, GFR 30-59 ml/min: PLAN: Plan Right lower extremity arterial occlusion/severe PVD, chronic Vascular surgery advising conservative mgmt. Pt to continue enoxaparin for VTE prophylaxis post L hip fracture surgery. Start ASA 81/d and apixaban 2.5 BID after enoxaparin completed. Left hip fracture s/p ORIF by Dr. Corrales at [facility]. Follow up with Dr. Corrales per routine. Not fully healed on CT. Surgery was 3 weeks ago. Failure to thrive given mulitipe issues, advanced age. Dtr declined hospice. PT OT. Possible left hip fluid collection post hip surgery. Seroma v hematoma. Follow up with orthopaedics. -Will get dedicated CT of the hip--> no contrast at this time as she is already had a contrast load -Hopefully imaging will help with overall goals of care discussion -Hold antibiotics until can further clarify Intra-abdominal fluid collection Suspect hematoma given recent hip fracture. Defer further evaluation given poor performance status. CKD stage IIIb -Serum creatinine relatively close to baseline Severe malnutrition with weight loss suplements. -Patient is underweight with a BMI of 18.6 CODE STATUS -DNR CCA with no intubation
--- NOTE | 2024-05-02 10:41 | CASEMGMT ---
SW noted family was discussing hospice. Patient's daughter Jillian arrived at [facility]. SW spoke with Jillian. Introduced self and role at [facility]. Jillian stated she and her family have decided not to go with hospice yet. They are not quite ready for hospice yet. They would like for patient to go back to [facility] and she will have to stay there jail. Jillian said she does not want patient to have any invasive surgical procedures. SW let Jillian know that will keep [facility] up to date. Jillian thanked SW. Plan: d/c back to [facility] when medically ready. Marixa Padron [employer]
--- NOTE | 2024-05-02 11:17 | CASEMGMT ---
Updates sent to [facility]. Paige Chambers DC Planning Asst.
--- NOTE | 2024-05-02 11:26 | EX.PCM.CON.S ---
Assessment & Plan Assessment/Plan (1) Peripheral vascular disease: PLAN: She does have significant peripheral arterial disease; however, seems to be largely chronic with collaterals on CTA and inflow to her bilateral lower extremities is relatively intact with R ROMULO 0.71 and L ROMULO 0.89. She is not endorsing any significant pain on my exam; no clear history of claudication; no wounds. With her degree and distribution of atherosclerosis would require open and potentially complex surgery to address. Given her overall condition would advise continued conservative management if possible. Discussed at length with her daughter Jillian who is in agreement that they would not want any surgical intervention in this regard. She is currently on prophylactic lovenox following her recent hip surgery. When this is able to be discontinued from orthopedic perspective, would be reasonable to consider starting ASA 81mg daily + Xarelto 2.5mg BID for optimized medical management of her PAD. Would also consider addition of high-intensity statin. HPI Consult Data Date of Consult: 05/02/24 HPI Narrative HPI Narrative: NITHIN KRISHNAN, is a 88 F who presented to the [facility] ER last night from SNF ([facility]) due to bilateral lower extremity pain and on-site arterial duplex which had reported R SFA occlusion and moderate to high grade stenoses through the LLE. She did recently suffer a fall with associated L hip fracture which was repaired 3 weeks ago at [facility] by Dr. Corrales; this is why she is currently admitted to SNF. Of note, she does have significant dementia and so is a poor historian. Her daughter Jillian is her POA and was at bedside at the time of my exam to supplement history. Her daughter reports that other than her L hip the patient has not ever complained to her of lower extremity pain. She reports that prior to this hip fracture she would ambulate seemingly without pain. She does not have any lower extremity wounds. When asked directly today, the patient states she has no pain in her lower extremities. 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 She had arterial study this morning which revealed R ROMULO 0.71, L ROMULO 0.89, and monophasic waveforms. PFSH Medical History CKD (chronic kidney disease) stage 3, GFR 30-59 ml/min Scalp wound Pneumonia Transient alteration of awareness Gout Hypothyroid Hypertension Alzheimer disease Depression Hypertension Hypothyroid Medical History unable to obtain Home Medications ?Medication ?Instructions ?Recorded ?Last Taken ?Type lisinopril 10 mg tablet 10 mg PO DAILY blood pressure 01/08/13 01/13/24 22:41 History sertraline 50 mg tablet 50 mg PO DAILY mental health 12/08/19 12/08/19 History levothyroxine 50 mcg tablet 50 mcg PO DAILY disorder of 01/14/24 01/13/24 22:00 History thyroid gland rivastigmine tartrate 3 mg capsule 3 mg PO BID memory 01/14/24 Unknown History allopurinol 100 mg tablet 100 mg PO DAILY gout pain 04/12/24 Unknown History acetaminophen 500 mg capsule 1,000 mg PO Q8H PRN fever or pain 05/01/24 Unknown History acetaminophen 650 mg rectal 650 mg IL Q4H PRN fever or pain 05/01/24 Unknown History suppository aluminum-magnesium hydroxide 225 30 ml PO Q4H PRN acid reflux 05/01/24 Unknown History mg-200 mg/5 mL oral suspension ascorbic acid (vitamin C) 500 mg 500 mg PO DAILY 05/01/24 Unknown History capsule bisacodyl 10 mg rectal suppository 10 mg [place] DAILY PRN constipation 05/01/24 Unknown History (OneLAX Bisacodyl) cholecalciferol (vitamin D3) 1,250 50,000 unit PO QWEEK 05/01/24 Unknown History mcg (50,000 unit) capsule dextrose 40 % oral gel (Glutose-15) 15 g PO Q15M PRN hypoglycemia 05/01/24 Unknown History doxycycline monohydrate 100 mg 100 mg PO BID 05/01/24 Unknown History capsule enoxaparin 30 mg/0.3 mL 30 mg subcut DAILY 05/01/24 Unknown History subcutaneous syringe glucagon HCl 1 mg solution for 1 mg IM Q20M PRN hypoglycemia 05/01/24 Unknown History injection (Glucagon (HCl) Emergency Kit) guaifenesin 100 mg/5 mL oral 400 mg PO Q4H PRN cough 05/01/24 Unknown History liquid (Cough Syrup) melatonin 1 mg chewable tablet 1 mg PO QHS 05/01/24 Unknown History (Kids Melatonin) memantine 5 mg tablet 5 mg PO BID 05/01/24 Unknown History multivit,stress formula-zinc 1 tab PO DAILY 05/01/24 Unknown History tablet (Stress B With Zinc tablet) multivitamin-iron 9 mg-folic acid 1 tab PO DAILY 05/01/24 Unknown History 400 mcg-calcium and minerals tablet (One-A-Day Teen Advantage) oxycodone 5 mg tablet 5 mg PO Q8H PRN pain 05/01/24 Unknown History potassium chloride 20 mEq 20 meq PO DAILY 05/01/24 Unknown History tablet,extended release(part/cryst) (Klor-Con M) Allergy/AdvReac Type Severity Reaction Status Date / Time ciprofloxacin (From Cipro) Allergy Hives Verified 05/01/24 14:39 ciprofloxacin HCl (From Allergy Hives Verified 05/01/24 14:39 Cipro) donepezil Allergy PT UNSURE Verified 05/01/24 14:39 OF REACTION levofloxacin (From Levaquin) Allergy PT UNSURE Verified 05/01/24 14:39 OF REACTION amoxicillin trihydrate (From AdvReac Abd Verified 05/01/24 14:39 Augmentin) cramps/diarrhea potassium clavulanate (From AdvReac Abd Verified 05/01/24 14:39 Augmentin) cramps/diarrhea Family History unable to obtain Surgical History (Updated 05/01/24 @ 19:[address] Miranda Diggs DO) S/P ORIF (open reduction internal fixation) fracture Surgical History unable to obtain Social History (Updated 05/01/24 @ 19:[address] Miranda Diggs DO) housing: longterm Smoking Status: Former smoker alcohol intake: never substance use type: does not use Physical Exam Const General Appearance: cooperative and comfortable Orientation / Consciousness: other Other Details: dementia, not oriented to place/time HEENT head/scalp atraumatic, hearing grossly normal bilaterally, external ears normal and external nose normal Eyes General Eye: normal appearance of both eyes Resp normal respiratory effort Effort and Inspection: able to speak in complete sentences; Negative for labored, grunting or stridor Cardio regular rate and regular rhythm Extremity no calf tenderness and no pedal edema Extremity Narrative: Bilateral pedal pulses dopplerable with strong monophasic signal Skin no rashes or lesions noted and no wounds Neuro oriented x3, CN's II-XII intact bilaterally, moves all extremities and no focal motor deficits Psych Attitude: calm Memory / Cognition: dementia Lab / Micro Data 05/02/24 03:52 05/02/24 03:52 Labs: Laboratory Results - last 24 hr 05/01/24 14:45: WBC 7.6, RBC 3.99 L, Hgb 9.5 L, Hct 32.2 L, MCV 80.7 L, MCH 23.8 L, MCHC 29.5 L, RDW Std Deviation 63.2 H, RDW Coeff of Sol 21.7 H, Plt Count 399, MPV 10.0, Immature Gran % (Auto) 0.700, Neut % (Auto) 78.6 H, Lymph % (Auto) 11.5 L, [place] % (Auto) 9.0, Eos % (Auto) 0.1, Baso % (Auto) 0.1, Absolute Neuts (auto) 6.0, Absolute Lymphs (auto) 0.88, Nucleated RBC % 0, Differential Comment SCANNED, Platelet Estimate ADEQUATE, Anisocytosis 2+, Ovalocytes 2+, Sodium 140, Potassium 4.2, Chloride 111 H, Carbon Dioxide 22.0, Anion Gap 7, BUN 33 H, Creatinine 1.38 H, Estim Creat Clear Calc 23.71, Est GFR (MDRD) Af Amer 47 L, Est GFR (MDRD) Non-Af 38 L, BUN/Creatinine Ratio 23.9 H, Glucose 92, Calcium 8.4 L 05/02/24 03:52: WBC 6.2, RBC 3.52 L, Hgb 8.3 L, Hct 28.3 L, MCV 80.4 L, MCH 23.6 L, MCHC 29.3 L, RDW Std Deviation 63.2 H, RDW Coeff of Sol 21.7 H, Plt Count 350, MPV 9.2, Immature Gran % (Auto) 0.500, Neut % (Auto) 76.1 H, Lymph % (Auto) 15.2 L, [place] % (Auto) 7.8, Eos % (Auto) 0.2, Baso % (Auto) 0.2, Absolute Neuts (auto) 4.7, Absolute Lymphs (auto) 0.94, Nucleated RBC % 0, Anisocytosis 1+, Sodium 137, Potassium 3.8, Chloride 111 H, Carbon Dioxide 18.0 L, Anion Gap 9, BUN 27 H, Creatinine 1.10 H, Estim Creat Clear Calc 29.64, Est GFR (MDRD) Af Amer 60, Est GFR (MDRD) Non-Af 50 L, BUN/Creatinine Ratio 24.5 H, Glucose 81, Calcium 7.8 L, Phosphorus 3.4, Magnesium 1.8, Total Bilirubin 0.50, AST 22, ALT 14, Alkaline Phosphatase 256 H, Total Protein 5.7 L, Albumin 2.3 L, Globulin 3.4, Albumin/Globulin Ratio 0.7 L Imaging Radiology Impression Abdomen/Pelvis CTA 05/01/24 16:20 IMPRESSION: 1. Arterially enhancing right lower quadrant mass, incompletely evaluated on arterial examination. If not recently performed, CT abdomen pelvis with contrast could be obtained for further evaluation. 2. Intramedullary nail fixation of the complex left femoral neck fracture with large rim enhancing fluid collection, concerning for developing abscess. Dedicated CT examination of the left hip with contrast is recommended if not recently performed. 3. Complete occlusion of the right superficial femoral artery, with partial reconstitution within the proximal right popliteal artery. 4. High-grade stenosis of the proximal left popliteal artery. 5. High-grade right and moderate grade left multifocal stenoses of the trifurcation arteries. 6. Probable complex fracture of the left knee as described. If not previously performed, left knee radiographs recommended for further evaluation. 7. Partially visualized suprarenal abdominal aortic aneurysm with marked stenosis of the right renal artery, chronic given asymmetric right renal cortical atrophy. Dr. Flaherty discussed these findings via telephone with Dr. Ulloa on 05/01/24 at 6:42 pm. One or more dose reduction techniques were used (e.g., Automated exposure control, adjustment of the mA and/or kV according to patient size, use of iterative reconstruction technique). Reading Location: [id number] Knee X-Ray 05/01/24 19:12 IMPRESSION: 1. No acute osseous abnormality. 2. Degenerative changes. 3. Small suprapatellar knee joint effusion. Reading Location: [facility] Lower Extremity CT 05/01/24 19:49 IMPRESSION: 1. Subacute trochanteric fracture as above with intact fixation hardware. 2. Small fluid collections in the lateral subcutaneous tissues as above. Hematoma, seroma and infection are all considered. One or more dose reduction techniques were used (e.g., Automated exposure control, adjustment of the mA and/or kV according to patient size, use of iterative reconstruction technique). Reading Location: [facility]
[2024-05-02] MEDS: Enoxaparin 60 MG/0.6 ML Syringe 50 MG SC (14:12)
--- NOTE | 2024-05-02 14:22 | CASEMGMT ---
Patient is going to be discharged back to [facility]. Physician notified patient's daughter. Plan: d/c back to [facility] under skilled level of care. Physicians will transport patient via cot. Marixa VALDOVINOS
--- NOTE | 2024-05-02 14:23 | DS.PCM_ITS ---
Providers Date of Admission: 05/01/24 Primary Care Physician: Dr. Nona Bosch MD Consultations 05/01/24 19:01 Consult: Vascular Surgery Routine Consulting Provider: Neo Pisano Reason for Consult: R Fem AA occlusion EMERGENT Consult: No Notified: Yes Date Notified: 05/01/24 Time Notified: 19:02 Method of Notification: ED Physician Initiated 05/01/24 19:32 Consult: Vascular Surgery Routine Consulting Provider: Neo Pisano Reason for Consult: LE Arterial Occlusion EMERGENT Consult: No Notified: Yes Date Notified: 05/01/24 Time Notified: 18:22 Method of Notification: ED Physician Initiated 05/02/24 10:25 Consult: Onc/Wound/residential interior designer Routine Comment: Reason for Consult:: sacral wound Reason For Visit: LE ARTERIAL OCCULUSION Diagnosis Discharge Diagnosis (1) Arterial occlusion: Status: Acute Code(s): I70.90 - Unspecified atherosclerosis (2) Anemia: Status: Acute Code(s): D64.9 - Anemia, unspecified (3) CKD (chronic kidney disease) stage 3, GFR 30-59 ml/min: Status: Inactive Code(s): N18.30 - Chronic kidney disease, stage 3 unspecified Plan Right lower extremity arterial occlusion/severe PVD, chronic * Vascular surgery advising conservative mgmt. Pt to continue enoxaparin for VTE prophylaxis post L hip fracture surgery. Start ASA 81/d and apixaban 2.5 BID after enoxaparin completed. Left hip fracture * s/p ORIF by Dr. Corrales at [facility]. Follow up with Dr. Corrales per routine. * Not fully healed on CT. Surgery was 3 weeks ago. Failure to thrive * given mulitipe issues, advanced age. * Dtr declined hospice. * PT OT. Possible left hip fluid collection * post hip surgery. Seroma v hematoma. Follow up with orthopaedics. * -Will get dedicated CT of the hip--> no contrast at this time as she is already had a contrast load -Hopefully imaging will help with overall goals of care discussion -Hold antibiotics until can further clarify Intra-abdominal fluid collection * Suspect hematoma given recent hip fracture. Defer further evaluation given poor performance status. CKD stage IIIb * -Serum creatinine relatively close to baseline Severe malnutrition with weight loss * suplements. -Patient is underweight with a BMI of 18.6 CODE STATUS -DNR CCA with no intubation Medications at Discharge Home Medications lisinopril 10 mg tablet 10 mg PO DAILY blood pressure 01/08/13 sertraline 50 mg tablet 50 mg PO DAILY mental health 12/08/19 levothyroxine 50 mcg tablet 50 mcg PO DAILY disorder of thyroid gland 01/14/24 rivastigmine tartrate 3 mg capsule 3 mg PO BID memory 01/14/24 allopurinol 100 mg tablet 100 mg PO DAILY gout pain 04/12/24 aluminum-magnesium hydroxide 225 mg-200 mg/5 mL oral suspension 30 ml PO Q4H PRN acid reflux 05/01/24 ascorbic acid (vitamin C) 500 mg capsule 500 mg PO DAILY 05/01/24 bisacodyl 10 mg rectal suppository (OneLAX Bisacodyl) 10 mg WI DAILY PRN constipation 05/01/24 cholecalciferol (vitamin D3) 1,250 mcg (50,000 unit) capsule 50,000 unit PO QWEEK 05/01/24 dextrose 40 % oral gel (Glutose-15) 15 g PO Q15M PRN hypoglycemia 05/01/24 enoxaparin 30 mg/0.3 mL subcutaneous syringe 30 mg subcut DAILY 05/01/24 glucagon HCl 1 mg solution for injection (Glucagon (HCl) Emergency Kit) 1 mg IM Q20M PRN hypoglycemia 05/01/24 guaifenesin 100 mg/5 mL oral liquid (Cough Syrup) 400 mg PO Q4H PRN cough 05/01/24 melatonin 1 mg chewable tablet (Kids Melatonin) 1 mg PO QHS 05/01/24 memantine 5 mg tablet 5 mg PO BID 05/01/24 multivit,stress formula-zinc tablet (Stress B With Zinc tablet) 1 tab PO DAILY 05/01/24 multivitamin-iron 9 mg-folic acid 400 mcg-calcium and minerals tablet (One-A-Day Teen Advantage) 1 tab PO DAILY 05/01/24 potassium chloride 20 mEq tablet,extended release(part/cryst) (Klor-Con M) 20 meq PO DAILY 05/01/24 acetaminophen 500 mg tablet 1,000 mg (2 x 500 mg) PO Q8 #0 tabs 05/02/24 food supplemt, lactose-reduced 0.08 gram-1.5 kcal/mL oral liquid (Ensure Plus High Protein) 120 ml PO TIDCM #0 mL 05/02/24 oxycodone 5 mg tablet 5 mg PO Q8H PRN pain 3 days #12 tabs 05/02/24 Hospital Course Operations None Procedures None Summary of Care Provided Minutes Spent on Discharge: 40 Weight / BMI Weight Weight: 52.1 kg Body Mass Index (BMI) 18.5 ABG / Lab / Microbiology Data 05/02/24 03:52 05/02/24 03:52 Laboratory: Laboratory Results - last 24 hr 05/01/24 14:45: WBC 7.6, RBC 3.99 L, Hgb 9.5 L, Hct 32.2 L, MCV 80.7 L, MCH 23.8 L, MCHC 29.5 L, RDW Std Deviation 63.2 H, RDW Coeff of Sol 21.7 H, Plt Count 399, MPV 10.0, Immature Gran % (Auto) 0.700, Neut % (Auto) 78.6 H, Lymph % (Auto) 11.5 L, [place] % (Auto) 9.0, Eos % (Auto) 0.1, Baso % (Auto) 0.1, Absolute Neuts (auto) 6.0, Absolute Lymphs (auto) 0.88, Nucleated RBC % 0, Differential Comment SCANNED, Platelet Estimate ADEQUATE, Anisocytosis 2+, Ovalocytes 2+, Sodium 140, Potassium 4.2, Chloride 111 H, Carbon Dioxide 22.0, Anion Gap 7, BUN 33 H, Creatinine 1.38 H, Estim Creat Clear Calc 23.71, Est GFR (MDRD) Af Amer 47 L, Est GFR (MDRD) Non-Af 38 L, BUN/Creatinine Ratio 23.9 H, Glucose 92, Calcium 8.4 L 05/02/24 03:52: WBC 6.2, RBC 3.52 L, Hgb 8.3 L, Hct 28.3 L, MCV 80.4 L, MCH 23.6 L, MCHC 29.3 L, RDW Std Deviation 63.2 H, RDW Coeff of Sol 21.7 H, Plt Count 350, MPV 9.2, Immature Gran % (Auto) 0.500, Neut % (Auto) 76.1 H, Lymph % (Auto) 15.2 L, [place] % (Auto) 7.8, Eos % (Auto) 0.2, Baso % (Auto) 0.2, Absolute Neuts (auto) 4.7, Absolute Lymphs (auto) 0.94, Nucleated RBC % 0, Anisocytosis 1+, Sodium 137, Potassium 3.8, Chloride 111 H, Carbon Dioxide 18.0 L, Anion Gap 9, B UN 27 H, Creatinine 1.10 H, Estim Creat Clear Calc 29.64, Est GFR (MDRD) Af Amer 60, Est GFR (MDRD) Non-Af 50 L, BUN/Creatinine Ratio 24.5 H, Glucose 81, Calcium 7.8 L, Phosphorus 3.4, Magnesium 1.8, Total Bilirubin 0.50, AST 22, ALT 14, A lkaline Phosphatase 256 H, Total Protein 5.7 L, Albumin 2.3 L, Globulin 3.4, A lbumin/Globulin Ratio 0.7 L Radiography Diagnostic Testing: Radiology Impression Abdomen/Pelvis CTA 05/01/24 16:20 IMPRESSION: 1. Arterially enhancing right lower quadrant mass, incompletely evaluated on arterial examination. If not recently performed, CT abdomen pelvis with contrast could be obtained for further evaluation. 2. Intramedullary nail fixation of the complex left femoral neck fracture with large rim enhancing fluid collection, concerning for developing abscess. Dedicated CT examination of the left hip with contrast is recommended if not recently performed. 3. Complete occlusion of the right superficial femoral artery, with partial reconstitution within the proximal right popliteal artery. 4. High-grade stenosis of the proximal left popliteal artery. 5. High-grade right and moderate grade left multifocal stenoses of the trifurcation arteries. 6. Probable complex fracture of the left knee as described. If not previously performed, left knee radiographs recommended for further evaluation. 7. Partially visualized suprarenal abdominal aortic aneurysm with marked stenosis of the right renal artery, chronic given asymmetric right renal cortical atrophy. Dr. Flaherty discussed these findings via telephone with Dr. Ulloa on 05/01/24 at 6:42 pm. One or more dose reduction techniques were used (e.g., Automated exposure control, adjustment of the mA and/or kV according to patient size, use of iterative reconstruction technique). Reading Location: [id number] Knee X-Ray 05/01/24 19:12 IMPRESSION: 1. No acute osseous abnormality. 2. Degenerative changes. 3. Small suprapatellar knee joint effusion. Reading Location: [facility] Lower Extremity CT 05/01/24 19:49 IMPRESSION: 1. Subacute trochanteric fracture as above with intact fixation hardware. 2. Small fluid collections in the lateral subcutaneous tissues as above. Hematoma, seroma and infection are all considered. One or more dose reduction techniques were used (e.g., Automated exposure control, adjustment of the mA and/or kV according to patient size, use of iterative reconstruction technique). Reading Location: [facility] D/C Instructions Discharge Diet: No restrictions DC O2, CPAP, BIPAP Needs Home O2 Discharge instructions: No Meaningful Use Info Meaningful Use Meaningful Use Diagnoses (Choose all that apply): None applicable Ischemic Stroke Statin Dosing Therapy Reference: STATIN DOSE THERAPY REFERENCE: * Patients > 75 years receive moderate or high dose statin therapy. * Patients 75 years or YOUNGER should receive HIGH intensity statin dose unless contraindicated. You will be required to document reason for non-treatment if statin daily dose does not meet guidelines. HIGH DOSE STATIN THERAPY DAILY Atorvastatin > than or = to 40 mg Rosuvastatin > than or = to 20 mg Amlodipine + Atorvastatin > than or = to 2.5/40 mg Ezetimibe + Simvastatin 10/80 mg Simvastatin 80mg Discharge Plan Admission Admit Date/Time: 05/01/24 18:19 Primary Reason for Your Visit: PAD Attending Provider: Neo Schulz Primary Care Provider: Nona Bosch Consulting Providers: Neo Pisano; Miranda Diggs Instructions Additional Instructions / Restrictions: Follow up with Dr. Corrales ([facility] orthopaedics) per previously scheduled. Follow up with Dr. Pisano in 1 month. Discharge Orders/Prescriptions Prescriptions: New acetaminophen 500 mg Tablet 1,000 mg PO Q8 Qty: 0 0RF Ensure Plus High Protein 0.08 gram-1.5 kcal/mL Liquid 120 ml PO TIDCM Qty: 0 0RF Continued lisinopril 10 MG tablet 10 mg PO DAILY sertraline 50 MG tablet 50 mg PO DAILY levothyroxine 50 mcg tablet 50 mcg PO DAILY rivastigmine tartrate 3 mg capsule 3 mg PO BID allopurinol 100 mg tablet 100 mg PO DAILY memantine 5 mg tablet 5 mg PO BID aluminum-magnesium hydroxide 225-200 mg/5 mL suspension 30 ml PO Q4H PRN (Reason: acid reflux) bisacodyl [OneLAX Bisacodyl] 10 mg suppository 10 mg [place] DAILY PRN (Reason: constipation) enoxaparin 30 mg/0.3 mL syringe 30 mg subcut DAILY glucagon HCl [Glucagon (HCl) Emergency Kit] 1 mg recon soln 1 mg IM Q20M PRN (Reason: hypoglycemia) Rx Instructions: until target blood sugar attained dextrose [Glutose-15] 40 % gel 15 g PO Q15M PRN (Reason: hypoglycemia) Rx Instructions: until symptoms of low blood sugar are controlled guaifenesin [Cough Syrup] 100 mg/5 mL liquid 400 mg PO Q4H PRN (Reason: cough) melatonin [Kids Melatonin] 1 mg tablet,chewable 1 mg PO QHS potassium chloride [Klor-Con M20] 20 mEq tablet,ER particles/crystals 20 meq PO DAILY Stress B With Zinc Tablet 1 tab PO DAILY One-A-Day Teen Advantage 9 mg iron-400 mcg tablet 1 tab PO DAILY ascorbic acid (vitamin C) 500 mg capsule 500 mg PO DAILY cholecalciferol (vitamin D3) 1,250 mcg (50,000 unit) capsule 50,000 unit PO QWEEK oxycodone 5 mg tablet 5 mg PO Q8H PRN (Reason: pain) 3 Days Qty: 12 0RF Discontinued acetaminophen 500 mg capsule 1,000 mg PO Q8H PRN (Reason: fever or pain) acetaminophen 650 mg suppository 650 mg WI Q4H PRN (Reason: fever or pain) doxycycline monohydrate 100 mg capsule 100 mg PO BID Referrals / Follow Up: Sayda Peace MD [Med Staff - Machine Whitener] - Nona Bosch MD [Primary Care Provider] - Disposition Disposition (needs filled in before D/C Order can be placed): Residential Facility Charges/Coding Visit Charges Inpatient E&M: 59170 Disch Hosp >30min
--- NOTE | 2024-05-02 14:30 | TREXTCAR_ITS ---
Diet Diet Order/Speech Therapy: 05/02/24 13:19 Diet: Regular - General Food consistency:: Mechanical (Minced/Moist) Liquid Consistency:: Regular/Thin Type of Dietary Supplement:: Wally Diet Comments: Wally BID Routine Orders/Code Status Routine Lab Work: CBC and BMP Code Status: DNRCC-A (no intubation) DC O2, CPAP, BIPAP needs Home O2 Discharge instructions: No Wound(s) sacral wound: Wound Type: Pressure Injury Therapies Weight Bearing: Weight bearing as tolerated Extremity Affected:: Left Lower Physical Therapy: Eval and Treat Occupational Therapy: Eval and Treat Problem/Diagnosis (1) Arterial occlusion: Status: Acute Code(s): I70.90 - Unspecified atherosclerosis (2) Anemia: Status: Acute Code(s): D64.9 - Anemia, unspecified (3) CKD (chronic kidney disease) stage 3, GFR 30-59 ml/min: Status: Inactive Code(s): N18.30 - Chronic kidney disease, stage 3 unspecified Plan Right lower extremity arterial occlusion/severe PVD, chronic * Vascular surgery advising conservative mgmt. Pt to continue enoxaparin for VTE prophylaxis post L hip fracture surgery. Start ASA 81/d and apixaban 2.5 BID after enoxaparin completed. Left hip fracture * s/p ORIF by Dr. Corrales at [facility]. Follow up with Dr. Corrales per routine. * Not fully healed on CT. Surgery was 3 weeks ago. Failure to thrive * given mulitipe issues, advanced age. * Dtr declined hospice. * PT OT. Possible left hip fluid collection * post hip surgery. Seroma v hematoma. Follow up with orthopaedics. * -Will get dedicated CT of the hip--> no contrast at this time as she is already had a contrast load -Hopefully imaging will help with overall goals of care discussion -Hold antibiotics until can further clarify Intra-abdominal fluid collection * Suspect hematoma given recent hip fracture. Defer further evaluation given poor performance status. CKD stage IIIb * -Serum creatinine relatively close to baseline Severe malnutrition with weight loss * suplements. -Patient is underweight with a BMI of 18.6 CODE STATUS -DNR CCA with no intubation Allergies/Procedures Done in Hospital Allergies ciprofloxacin (From Cipro) Allergy (Verified 05/01/24 14:39) Hives ciprofloxacin HCl (From Cipro) Allergy (Verified 05/01/24 14:39) Hives donepezil Allergy (Verified 05/01/24 14:39) PT UNSURE OF REACTION levofloxacin (From Levaquin) Allergy (Verified 05/01/24 14:39) PT UNSURE OF REACTION amoxicillin trihydrate (From Augmentin) Adverse Reaction (Verified 05/01/24 14:39) Abd cramps/diarrhea potassium clavulanate (From Augmentin) Adverse Reaction (Verified 05/01/24 14:39) Abd cramps/diarrhea Procedures: None Type of Care/Length of Stay Estimated LOS: Convalescent Care Less Than 30 days Type of Care Needed: Skilled Rehab Potential: Fair Prognosis: Fair Additional Orders/Day of Discharge Day of Discharge: 05/02/24 Dietary and Speech Recommendations Dietitian Recommendations/Changes: Recommend advanced diet as tolerated to liberal regular diet. Continue 120ml ensure plus high protein TID with medpass, as diet is advanced. Recommend wally BID with meals to promote wound healing, as diet is advanced. Reviewed and approved by Delfina Mckoy RDN, LD. Will monitor weight as available. Discharge Plan Admission Admit Date/Time: 05/01/24 18:19 Primary Reason for Your Visit: PAD Attending Provider: Neo Schulz Primary Care Provider: Nona Bosch Consulting Providers: Neo Pisano; Miranda Diggs Instructions Additional Instructions / Restrictions: Follow up with Dr. Corrales ([facility] orthopaedics) per previously scheduled. Follow up with Dr. Pisano in 1 month. Discharge Orders/Prescriptions Prescriptions: New acetaminophen 500 mg Tablet 1,000 mg PO Q8 Qty: 0 0RF Ensure Plus High Protein 0.08 gram-1.5 kcal/mL Liquid 120 ml PO TIDCM Qty: 0 0RF Continued lisinopril 10 MG tablet 10 mg PO DAILY sertraline 50 MG tablet 50 mg PO DAILY levothyroxine 50 mcg tablet 50 mcg PO DAILY rivastigmine tartrate 3 mg capsule 3 mg PO BID allopurinol 100 mg tablet 100 mg PO DAILY memantine 5 mg tablet 5 mg PO BID aluminum-magnesium hydroxide 225-200 mg/5 mL suspension 30 ml PO Q4H PRN (Reason: acid reflux) bisacodyl [OneLAX Bisacodyl] 10 mg suppository 10 mg [place] DAILY PRN (Reason: constipation) enoxaparin 30 mg/0.3 mL syringe 30 mg subcut DAILY glucagon HCl [Glucagon (HCl) Emergency Kit] 1 mg recon soln 1 mg IM Q20M PRN (Reason: hypoglycemia) Rx Instructions: until target blood sugar attained dextrose [Glutose-15] 40 % gel 15 g PO Q15M PRN (Reason: hypoglycemia) Rx Instructions: until symptoms of low blood sugar are controlled guaifenesin [Cough Syrup] 100 mg/5 mL liquid 400 mg PO Q4H PRN (Reason: cough) melatonin [Kids Melatonin] 1 mg tablet,chewable 1 mg PO QHS potassium chloride [Klor-Con M20] 20 mEq tablet,ER particles/crystals 20 meq PO DAILY Stress B With Zinc Tablet 1 tab PO DAILY One-A-Day Teen Advantage 9 mg iron-400 mcg tablet 1 tab PO DAILY ascorbic acid (vitamin C) 500 mg capsule 500 mg PO DAILY cholecalciferol (vitamin D3) 1,250 mcg (50,000 unit) capsule 50,000 unit PO QWEEK oxycodone 5 mg tablet 5 mg PO Q8H PRN (Reason: pain) 3 Days Qty: 12 0RF Discontinued acetaminophen 500 mg capsule 1,000 mg PO Q8H PRN (Reason: fever or pain) acetaminophen 650 mg suppository 650 mg NJ Q4H PRN (Reason: fever or pain) doxycycline monohydrate 100 mg capsule 100 mg PO BID Referrals / Follow Up: Sayda Peace MD [Med Staff - [facility]] - Nona Bosch MD [Primary Care Provider] - Disposition Disposition (needs filled in before D/C Order can be placed): Long Term Facility
--- NOTE | 2024-05-02 14:43 | CASEMGMT ---
Discharge orders, signed med list, and transport time sent to [facility]. Physicians will transport pt by cot at 4:30p. Nursing, SW, and pts daughter (Jillian) updated. Paige Chambers DC Planning Asst.
--- NOTE | 2024-05-02 14:44 | NURSING ---
Patient had see catheter in place. No orders for see catheter placement. This RN called [facility] nurse to see if the patient had a catheter when [facility]. The nurse stated that the patient did not have a see catheter there. notified. ok with removal of see catheter. See catheter removed today, 05/02/24 @ [id number].
--- NOTE | 2024-05-02 14:47 | PHA.DC.MR.R ---
Pharmacy OR Med Reconciliation Pharmacy Service has performed discharge medication reconciliation for this patient. The patient's discharge medication list was reviewed for discrepancies and discrepancies were resolved. Medications at Discharge Home Medications lisinopril 10 mg tablet 10 mg PO DAILY blood pressure 01/08/13 sertraline 50 mg tablet 50 mg PO DAILY mental health 12/08/19 levothyroxine 50 mcg tablet 50 mcg PO DAILY disorder of thyroid gland 01/14/24 rivastigmine tartrate 3 mg capsule 3 mg PO BID memory 01/14/24 allopurinol 100 mg tablet 100 mg PO DAILY gout pain 04/12/24 aluminum-magnesium hydroxide 225 mg-200 mg/5 mL oral suspension 30 ml PO Q4H PRN acid reflux 05/01/24 ascorbic acid (vitamin C) 500 mg capsule 500 mg PO DAILY 05/01/24 bisacodyl 10 mg rectal suppository (OneLAX Bisacodyl) 10 mg MT DAILY PRN constipation 05/01/24 cholecalciferol (vitamin D3) 1,250 mcg (50,000 unit) capsule 50,000 unit PO QWEEK 05/01/24 dextrose 40 % oral gel (Glutose-15) 15 g PO Q15M PRN hypoglycemia 05/01/24 enoxaparin 30 mg/0.3 mL subcutaneous syringe 30 mg subcut DAILY 05/01/24 glucagon HCl 1 mg solution for injection (Glucagon (HCl) Emergency Kit) 1 mg IM Q20M PRN hypoglycemia 05/01/24 guaifenesin 100 mg/5 mL oral liquid (Cough Syrup) 400 mg PO Q4H PRN cough 05/01/24 melatonin 1 mg chewable tablet (Kids Melatonin) 1 mg PO QHS 05/01/24 memantine 5 mg tablet 5 mg PO BID 05/01/24 multivit,stress formula-zinc tablet (Stress B With Zinc tablet) 1 tab PO DAILY 05/01/24 multivitamin-iron 9 mg-folic acid 400 mcg-calcium and minerals tablet (One-A-Day Teen Advantage) 1 tab PO DAILY 05/01/24 potassium chloride 20 mEq tablet,extended release(part/cryst) (Klor-Con M) 20 meq PO DAILY 05/01/24 acetaminophen 500 mg tablet 1,000 mg (2 x 500 mg) PO Q8 #0 tabs 05/02/24 food supplemt, lactose-reduced 0.08 gram-1.5 kcal/mL oral liquid (Ensure Plus High Protein) 120 ml PO TIDCM #0 mL 05/02/24 oxycodone 5 mg tablet 5 mg PO Q8H PRN pain 3 days #12 tabs 05/02/24
[2024-05-02 15:20] VITALS: BP 118/76; PULSE 83; RESP 16; TEMP 37.2; O2SAT 95
--- NOTE | 2024-05-02 16:43 | NURSING ---
Report called to [facility] nurse. Family aware that patient is being discharged back to SNF.
[2024-05-02] MEDS: Ensure Plus High Protein 120 ML LIQUID PO (17:27)
== END 2024-05-02 19:14 | disposition skilled nursing facility (03) ==
LOC: ED 18:22 → PCU 19:32
PROVIDERS: Admitting Provider Internal Medicine; Emergency Provider Emergency Medicine; PCP Internal Medicine; Referring Provider Internal Medicine
DX: I77.1 Stricture of artery (principal); G30.9 Alzheimer's disease, unspecified; F02.80 Dementia in other diseases classified elsewhere, unspecified severity, without behavioral disturbance, psychotic disturbance, mood disturbance, and anxiety; N18.32 Chronic kidney disease, stage 3b; S72.102D Unspecified trochanteric fracture of left femur, subsequent encounter for closed fracture with routine healing; D64.9 Anemia, unspecified; Z79.890 Hormone replacement therapy; I12.9 Hypertensive chronic kidney disease with stage 1 through stage 4 chronic kidney disease, or unspecified chronic kidney disease; Z79.01 Long term (current) use of anticoagulants; Z87.891 Personal history of nicotine dependence; M10.9 Gout, unspecified; I73.9 Peripheral vascular disease, unspecified; I71.60 Thoracoabdominal aortic aneurysm, without rupture, unspecified; Z79.899 Other long term (current) drug therapy; E03.9 Hypothyroidism, unspecified; W19.XXXD Unspecified fall, subsequent encounter; R62.7 Adult failure to thrive; E43 Unspecified severe protein-calorie malnutrition; Z68.1 Body mass index [BMI] 19.9 or less, adult
CPT/HCPCS: 36415; 73564; 73700; 75635; 80048; 80053; 83735; 84100; 85025; 93922; 96372; 97802; 99221; 99285; Q9967; A4216; G0378